=== PATIENT | female | born 1990 | race Caucasian/White ===

== ENCOUNTER 2019-04-02 05:45 | Outpatient (CLI) | payer MEDICAID, SELFPAY ==
[2019-04-02 06:07] VITALS: BMI 47.1
[2019-04-02 06:55] LABS: Red Blood Cells-Urine 0 SEEN /hpf (0-5)
[2019-04-02 06:59] LABS: Color, Urine Yellow (Yellow); Glucose, Dipstick Normal (Normal); Ketone-Dipstick Negative (Negative); Leukocyte Esterase-Dipstick 100 /ul (Negative); Nitrite-Dipstick Negative (Negative); Occult Blood-Urine Negative /ul (Negative); Protein-Dipstick 15 mg/dl (Negative); Urine Bilirubin Dipstick Negative (Negative); Urine Clarity Sl. Cloudy (Clear); Urine Urobilinogen Normal (Normal); Urine pH 6.5 (5.0 - 8.0)
[2019-04-02 07:09] LABS: Bacteria 1+ /hpf (None Seen); Mucous, Urine RARE /hpf (<or=2+); Squamous Epithelial Cells - UA 0-5 SEEN /hpf (5-10); White Blood Cells 0-5 SEEN /hpf (0-5)
--- NOTE | 2019-04-02 10:24 | NURSING ---
CNM en route to hospital to evaluate patient at bedside. Patient aware of this and was told of plan of care, but opted to leave hospital AMA. See QS for progress note. Encouraged to see her provider today at [facility] and was given pre-eclampsia educational handout.
--- NOTE | 2019-04-06 18:27 | OB.TRI.NOTE ---
History of Present Illness Reason For Visit: R/O LABOR Date of Service: 04/02/19 Final KALEB: 04/23/19 Gestational age: 37 Weeks and 4 Days Allergies metoclopramide [From Reglan] Allergy (Verified 04/02/19 06:10) Shortness of breath Laboratory Studies: Laboratory Tests 04/02/19 Range/Units 06:45 Urine Color Yellow (Yellow) Urine Clarity Sl. Cloudy (Clear) Urine pH 6.5 (5.0 - 8.0) Ur Specific [place] 1.020 (1.002-1.030) Urine Protein 15 H (Negative) mg/dl Urine Glucose (UA) Normal (Normal) mg/dl Urine Ketones Negative (Negative) mg/dl Urine Occult Blood Negative (Negative) /ul Urine Nitrite Negative (Negative) Urine Bilirubin Negative (Negative) mg/dL Urine Urobilinogen Normal (Normal) mg/dl Ur Leukocyte Esterase 100 H (Negative) /ul Urine RBC 0 SEEN (0-5) /hpf Urine WBC 0-5 SEEN (0-5) /hpf Ur Squamous Epith Cells 0-5 SEEN (5-10) /hpf Urine Bacteria 1+ (None Seen) /hpf Urine Mucus RARE (<or=2+) /hpf NST - FHR Rate Baby A Baseline: 125 Variability:: Moderate Accelerations:: 15 x 15 Decelerations:: None NST Reactive:: Yes Uterine Activity:: irregular Impression/Plan REactive NST for false labor
== END 2019-04-02 08:08 | disposition home or self-care (01) ==
LOC: WPOUT 05:54 → WP 05:54
PROVIDERS: Visit Provider Obstetrics & Gynecology
DX: O47.1 False labor at or after 37 completed weeks of gestation (principal); Z3A.37 37 weeks gestation of pregnancy
CPT/HCPCS: 59025; 59050; 81001; 99218; G0378

== ENCOUNTER 2025-07-10 18:12 | Emergency (ER) | payer MEDICAID, SELFPAY ==
[2025-07-10 18:13] VITALS: BP 137/87; PULSE 74; RESP 16; TEMP 36.4; O2SAT 100
--- NOTE | 2025-07-10 18:45 | EX.ED.VIS.HA ---
HPI History of Present Illness Chief Complaint: Headache Informant: patient Narrative Narrative: 34-year-old female presenting to the emergency room with headache. Patient states she has a history of migraines and takes sumatriptan. She sees neurology from [facility] in [place]. The patient tells me that this morning she began to have have a classic migraine for her in the right periorbital region. She states however she started to have pain more on the top of her head and also in occipital region. She states that she feels like Jell-O. She got no relief from her sumatriptan hand. She is on Trulicity missed last week's dose but took it this week and states that since taking it this week she has not felt her normal self. She wonders if her blood sugar is low. She denies any fever cough runny nose sore throat. Other than generalized weakness she does not note any focal deficits. She denies any trauma. [facility] Medical History (Updated 07/10/25 @ 19:[address] David Ackerman DO) Headache Home Medications ?Medication ?Instructions ?Recorded ?Last Taken ?Type dulaglutide 0.75 mg/0.5 mL 0.75 mg subcut QWEEK 07/10/25 Unknown History subcutaneous pen injector (Trulicity) potassium chloride 20 mEq 20 meq PO DAILY #3 tabs 07/10/25 Unknown Rx tablet,extended release (K-Tab) sumatriptan succinate 100 mg tablet 100 mg PO Q2H PRN migraine headache 07/10/25 Unknown History Allergy/AdvReac Type Severity Reaction Status Date / Time metoclopramide (From Reglan) Allergy Shortness Verified 07/10/25 18:16 of breath prochlorperazine (From AdvReac Other Verified 07/10/25 18:16 Compazine) Social History Smoking Status: Current every day smoker tobacco type: cigarettes ROS ROS ED ROS Narrative Generalized weakness Constitutional Constitutional ED: Denies chills, fever(s) or weight loss Eyes Eyes: Denies change in vision or diplopia ENT ENT ED: Denies ear pain, rhinorrhea or sore throat Cardiovascular Cardiovascular: Denies chest pain, orthopnea, palpitations or racing heartbeat Respiratory/Chest Respiratory/Chest: Denies cough, dyspnea or orthopnea Gastrointestinal Gastrointestinal: Reports nausea and vomiting; Denies abdominal pain or diarrhea Genitourinary Genitourinary ED: Denies dysuria, hematuria or urinary frequency Musculoskeletal Musculoskeletal: Denies arthralgias or myalgias Integumentary Denies abscess or rash Neurologic Neurologic: Reports headache(s); Denies weakness Psychiatric Psychiatric: Denies anxiety, depression, suicidal ideation or suicidal thoughts Endocrine Endocrinology: Denies polydipsia, polyphagia or polyuria Allergic/Immunologic Allergic/Immunologic ED: Denies mouth swelling, tongue swelling or urticaria EXAM Physical Exam Narrative Exam Narrative: In a darkened room. Patient does not open her eyes and speaks easily. Const Vital Signs: 07/10/25 18:13 07/10/25 20:00 07/10/25 20:22 Temperature 97.6 F L 97.3 F L Temperature Source Oral Pulse Rate 74 70 70 Respiratory Rate 16 16 16 Blood Pressure 137/87 H 138/80 H Blood Pressure Mean 103 99 Pulse Ox 100 98 98 Oxygen Delivery Method Room Air Positive well nourished, well developed and obese General Appearance ED: well developed and NAD Nutritional Appearance: obese HEENT Reports normocephalic, head/scalp atraumatic and moist mucous membranes Eyes PERRL and EOMs intact bilaterally Neck no lymphadenopathy, supple and no JVD Resp normal respiratory effort and clear to auscultation bilaterally Cardio regular rate, regular rhythm and no murmurs GI normal to inspection, nondistended, normoactive bowel sounds and non-tender Palpation: soft Back/Spine no CVA tenderness and normal ROM Extremity normal to inspection General Extremety ED: Negative for edema General Extremity: Negative for edema Neuro oriented x3, CN's II-XII intact bilaterally and no sensory deficits noted [place] Coma Scale: document GCS findings Spontaneous Obeys Commands Oriented 15 Sensorium / Orientation: awake, alert, oriented to person, oriented to place and oriented to time Speech: speech normal Motor Exam: strength 5/5 throughout Psych mental status grossly normal Mood & Affect: Negative for depressed or tearful Skin no rashes or lesions noted and no wounds MDM MDM MDM Narrative Medical decision making narrative: Differential diagnosis includes but not limited to dehydration electrolyte abnormalities hypoglycemia primary headache disorder intracranial hemorrhage malignancy medication reaction Patient is noted to have had problems with hypokalemia in the past. Today she is 3.6. Glucose 128 hemoglobin 11.6 platelet count [address] of the brain was obtained which demonstrates no acute intracranial process. Bilateral retention cyst are noted in the sinuses. Patient received a dose of Decadron as well as Toradol and Phenergan as well as IV fluids. She notes her headache is better she states that she still feels an odd sensation in her occiput. Open I have the patient discharged home. We talked about whether or not she needed potassium supplementation given her long history of having low potassium. I asked that she follow-up with her neurologist given the change in headache pattern. She wonders if her symptoms may be related to her Trulicity. I would defer that to primary care. History & Record Review Discussion w/independent historian: Patient Additional record(s) reviewed:: Prior labs Lab Data Attestation: I reviewed the patient's lab results. Labs: Laboratory Results - last 24 hr 07/10/25 07/10/25 18:45 18:50 WBC 7.7 RBC 4.57 Hgb 11.6 L Hct 35.7 L MCV 78.1 L MCH 25.4 L MCHC 32.5 RDW Std Deviation 38.9 RDW Coeff of Bucky 13.8 Plt Count 233 MPV 9.7 Immature Gran % (Auto) 0.100 Neut % (Auto) 69.3 Lymph % (Auto) 23.3 [place] % (Auto) 4.6 Eos % (Auto) 2.0 Baso % (Auto) 0.7 Absolute Neuts (auto) 5.3 Absolute Lymphs (auto) 1.79 Nucleated RBC % 0 Sodium 141 Potassium 3.6 Chloride 105 Carbon Dioxide 24.9 Anion Gap 11 BUN 9 Creatinine 0.76 Est GFR (MDRD) Non-Af 106 BUN/Creatinine Ratio 11.9 Glucose 128 H Calcium 8.4 POC Glucose 97 Radiography Diagnostic Testing: Clinical Impression(s) from Imaging Studies Brain CT 07/10/25 18:55 IMPRESSION: No acute intracranial process. Large retention cyst within bilateral maxillary sinuses, left more than right Reading Location: [facility] Discharge Plan Triage Chief Complaint: Headache ED Provider: David Ackerman Dx/Rx/DC Orders Clinical Impression: Headache, Hypokalemia, Weakness Instructions: ED Headache Unspecified, ED Hypokalemia Prescriptions: New potassium chloride [K-Tab] 20 mEq tablet extended release 20 meq PO DAILY Qty: 3 0RF No Action sumatriptan succinate 100 mg tablet 100 mg PO Q2H PRN (Reason: migraine headache) Trulicity 0.75 mg/0.5 mL pen injector 0.75 mg subcut QWEEK Primary Care Provider: Kiersten South NP Referrals: Kiersten South NP, [employer] [Primary Care Provider, Medical] - 3-5 Days Print Language: Bermudian Disposition Disposition: Home, Self Care
[2025-07-10] MEDS: 0.9% Normal Saline (1000mL) 1,000 ML 999 ML IV (18:49)
[2025-07-10] MEDS: Ketorolac 30 MG/ML Syringe IV (18:49)
[2025-07-10] MEDS: proMETHazine 25 MG/ML Syringe 12.5 MG IM (18:50)
[2025-07-10 18:55] LABS: Hematocrit 35.7 % (37-47); Hemoglobin 11.6 g/dL (12.0-15.0); Immature Granulocytes Count 0.010 X10^3/uL (0.0-0.0); Mean Corp Hgb Conc 32.5 g/dL (32-36); Mean Corpuscular Volume 78.1 fL (81-99); Mean Platelet Vol. 9.7 fl (6.2-12.0); NRBC Flagged by Analyzer 0 % (0-5); Platelet Count 233 K/mm3 (150-450); RBC Distribution Width CV 13.8 % (11.6-14.6); RBC Distribution Width SD 38.9 fl (35.1-43.9); Red Blood Count 4.57 M/mm3 (4.2-5.4); White Blood Count 7.7 K/mm3 (4.4-11.0)
--- NOTE | 2025-07-10 18:55 | CT_ITS ---
PROCEDURE: BRAIN/HEAD WITHOUT CONTRAST 07/10/2025 REASON FOR EXAM: PAIN TECHNIQUE: Procedure Code: CTBR Modality: CT Procedure: BRAIN/HEAD WITHOUT CONTRAST Coronal and Sagittal reconstruction series were provided. One or more dose reduction techniques were used (e.g., Automated exposure control, adjustment of the mA and/or kV according to patient size, use of iterative reconstruction technique. RADIATION DOSE SUMMARY: DLP: 779 mGycm COMPARISON: None FINDINGS: There is no acute infarct, intracranial hemorrhage, or mass effect. There is no hydrocephalus or significant midline shift. No acute, depressed calvarial fractures. No large scalp hematomas. Large retention cyst within bilateral maxillary sinuses, left more than right CT/Brain/Head without Contrast IMPRESSION: No acute intracranial process. Large retention cyst within bilateral maxillary sinuses, left more than right Reading Location: [id number]
[2025-07-10 19:12] LABS: Anion Gap 11 (5-15); BUN 9 mg/dL (4-19); BUN/Creat Ratio 11.9 RATIO (10-20); Calcium,Total 8.4 mg/dL (7.6-11.0); Carbon Dioxide 24.9 mmol/L (21.0-32.0); Chloride 105 mmol/L (98-108); Glucose 128 mg/dL (70-99); Potassium 3.6 mmol/L (3.3-5.1)
--- OUTSIDE RECORDS SUMMARY | 2025-07-10 19:27 | XMS RPT_ITS | CCD ---
Author Organization [facility] Care Team Providers Care Chip Frier Name Role Phone Alex Ortega Primary Care Provider KALEY RITTER, DR LUJAN Primary Care Physician [phone] MD NEGRO GARBER Emergency Provider ALEX ORTEGA Primary Care Provider NEGRO GARBER Attending Unavailable ALEX ORTEGA Primary Care Unavailable KALEY RITTER, DR LUJAN Primary Care Unavailable ENRICO HAJI DO Attending Unavailable MATTHEW LAROSE MD Attending Unavailable KALEY RITTER, DR LUJAN Primary Care Unavailable KALEY RITTER, DR LUJAN Primary Care Unavailable ENRICO HAJI DO Attending Unavailable Andrea Duff DO Primary Care Provider [phone] Jacky Solares MD Primary Care Provider Brannon [employer] [facility] [place] Primary Care Provider DR ANDREA DUFF DO Primary Care Physician [phone] Jacky Solares MD Primary Care Provider Amber García DO Unavailable DR ANDREA DUFF DO Primary Care Unavailab KEELY Ferrer MD Attending Unavail able DR ANDREA DUFF DO Primary Care Unavailab KEELY Ferrer MD Attending Unavail able JACKY SOLARES Primary Care Unavailable [facility] Attending Unavailable JACKY SOLARES Primary Care Unavailable [place] [facility] Attending Unavailable JACKY SOLARES Primary Care Unavailable [facility] Attending Unavailable JACKY SOLARES Primary Care Unavailable JACKY SOLARES Primary Care Unavailable AMBER GARCÍA Attending Unavailable [facility] Referring Unavailable DORON GUSTAFSON Attending Unavailable [facility] Primary Care Unavailable CRICKET FOREMAN Attending Unavailable PETRI[place], [place] Primary Care Unavailable STORMY KEN Attending Unava ilable [facility] Primary Care Unavailable CRICKET FOREMAN Referring Unavailable PETRILLA, ANDREA Primary Care Unavailable [facility] Attending Unavailable DORON GUSTAFSON Attending Unavailable [facility] Primary Care Unavailable PETRILLA, ANDREA Attending Unavailable PETRILLA, ANDREA Primary Care Unavailable [facility] Attending Unavailable SANGEETALLA, ANDREA Primary Care Unavailable [facility] Referring Unavailable [facility] Primary Care Unavailable [facility] Attending Unavailable [facility] Primary Care Unavailable [facility] Attending Unavailable [facility] Attending Unavailable SANGEETALLA, [place] Primary Care Unavailable [facility] Primary Care Unavailable [facility] Referring Unavailable [place] [facility] Attending Unavailable CRICKET FOREMAN Referring Unavailable PETRILLA, [place] Primary Care Unavailable [facility] Attending Unavailable PETRILLA, [place] Primary Care Unavailable [facility] Referring Unavailable [facility] Primary Care Unavailable Allergies Allergy Classification Reported Allergen(s) Allergy Type Date of Onset Reaction(s) Facility (20 sources) Metoclopramide; Translations: [metoclopramide] Drug Allergy 9 [place], [place] (20 sources) Prochlorperazine Drug Allergy 5 [facility] Medications Current Medications Medication Drug Class(es) Dates Sig (Normalized) Sig (Original) acetaminophen 325 mg / butalbital 50 mg / caffeine 40 mg oral tablet (11 sources) Barbiturate, Central Nervous System Stimulant, Methylxanthine Start: 11-22-2019 take 1 tablet by mouth every four hours as needed for headache butalbital-aceta minophen-caffein e (FIORICET, ESGIC) 50-325-40 MG per tablet Take 1 tablet by mouth every 4 hours as needed for Headaches 15 tablet 0 11/22/2019 Active Start: 01-10-2019 End: 04-11-2019 take 1 tablet by mouth every four hours as needed for headache [id number] (SIVAN CET, ESGIC) 50-325-40 MG per tablet Take 1 tablet by mouth every 4 hours as needed for Headaches or Migraine 30 tablet 0 01/10/2019 04/11/2019 Discontinued (Stop Taking at Discharge) acetaminophen 325 mg / HYDROcodone bitartrate 5 mg oral tablet (3 sources) Opioid Agonist Start: 04-26-2022 End: 04-29-2022 take 1 tablet by mouth every six hours as needed for pain acetaminophen-hydrocodone 325 mg-5 mg oral tablet Dose = 1 tab(s), Oral, q6h, PRN for pain, prn with food, X 3 day(s), # 12 tab(s), 0 Refill(s), Coxsackie virus exanthem Hand foot and mouth disease, 140.9 Start Date: 04/26/22 Stop Date: 04/29/22 Status: Ordered Start: 12-01-2019 End: 12-03-2019 take 1 tablet by mouth every six hours as needed for pain HYDROcodone-acetaminophen (NORCO) 5-325 MG per tablet Indications: Lumbar contusion, initial encounter Take 1 tablet by mouth every 6 hours as needed for Pain for up to 2 days. 8 tablet 0 12/01/2019 12/03/2019 Active Start: 04-10-2019 HYDROcodone-ac etaminophen (NORCO) 5-325 MG per tablet 1 tablet [id number] 200 actuat albuterol 0.09 mg/actuat metered dose inhaler (20 sources) beta2-Adrenergic Agonist Start: 12-04-2024 take 2 puff(s) by inhalation every six hours as needed for wheezing albuterol 108 (90 Base) MCG/ACT inhaler Indications: URI with cough and congestion , Exercise-induced asthma Inhale 2 puffs every 6 hours as needed for wheezing. 18 g 12/04/2024 Active Start: 04-20-2019 albuterol (PRO VENTIL) nebulizer solution 2.5 mg Start: 04-20-2019 take 2 puff(s) by in halation four times daily as needed for wheezing albuterol sulfate HFA 108 (90 Base) MCG/ACT inhaler Inhale 2 puffs into the lungs 4 times daily as needed for Wheezing 1 Inhaler 5 04/20/2019 Active End: 12-04-2024 albuterol 108 (90 Base) MCG/ ACT inhaler Inhale. 12/04/2024 Discontinued (Reorder) albuterol sulfate HFA 108 (90 Base) MCG/ACT inhaler (9 sources) Start: 12-07-2019 take 2 puff(s) by inhalation four times daily as needed for wheezing albuterol sulfate HFA 108 (90 Base) MCG/ACT inhaler Inhale 2 puffs into the lungs 4 times daily as needed for Wheezing 1 Inhaler 5 12/07/2019 Active Start: 04-20-2019 take 2 puff(s) by in halation four times daily as needed for wheezing albuterol sulfate HFA 108 (90 Base) MCG/ACT inhaler Inhale 2 puffs into the lungs 4 times daily as needed for Wheezing 1 Inhaler 5 04/20/2019 Active amitriptyline hydrochloride 50 mg oral tablet (20 sources) Tricyclic Antidepressant Start: 10-03-2024 End: 01-10-2026 take 1 tablet by mouth once daily amitriptyline (Elavil) 50 MG tablet Indications: Intractable migraine with aura without status migrainosus Take 1 tablet (50 mg) by mouth daily with supper. Do not start before October 03, 2024. 90 tablet 3 10/03/2024 01/10/2026 Active Start: 09-19-2024 End: 12-04-2024 take 2 tablets by mouth once daily in the evening amitriptyline (Elavil) 25 MG tablet Indications: Intractable migraine with aura without status migrainosus Take half a tab po QPM suppertime for 7 days, then take a full tab po QPM suppertime for 7 days, then move up to the 50 mg tabs 14 tablet 09/19/2024 12/04/2024 Discontinued amoxicillin 875 mg oral tablet (1 source) Penicillin-class Antibacterial Start: 09-07-2022 End: 09-08-2022 amoxicillin 875 mg oral tablet Dose : 875 mg = 1 tab(s), PO, BID, # 20 tab(s), 0 Refill(s), 09/08/22 10:14:00 EST, Eustachian tube disorder Start Date: 09/07/22 Stop Date: 09/08/22 Status: Ordered azithromycin 250 mg oral tablet (1 source) Macrolide Antimicrobial Start: 04-20-2019 End: 04-24-2019 azithromycin (ZITHROMAX Z-CHAR) 250 MG tablet Take 2 tablets (500 mg) on Day 1, and then take 1 tablet (250 mg) on days 2 through 5. 1 packet 0 04/20/2019 04/24/2019 Active cephalexin 500 mg oral capsule (1 source) Cephalosporin Antibacterial Start: 04-20-2019 End: 04-30-2019 take 1 capsule by mouth three times daily cephALEXin (KEFLEX) 500 MG capsule Take 1 capsule by mouth 3 times daily for 10 days 30 capsule 0 04/20/2019 04/30/2019 Active citalopram 20 mg oral tablet (4 sources) Serotonin Reuptake Inhibitor Start: 05-26-2019 take 1 tablet by mouth once daily citalopram (CELEXA) 20 MG tablet Take 1 tablet by mouth daily 30 tablet 3 05/26/2019 Active Continuous Glucose Sensor (FreeStyle Leilani 3 Plus Sensor) [facility] (20 sources) Start: 01-22-2025 Continuous Glucose Sensor (FreeStyle Leilani 3 Plus Sensor) [facility] Indications: Type 2 diabetes mellitus with morbid obesity (HCC) 1 each every 14 (fourteen) days. 2 each 5 01/22/2025 Active [facility] Leilani [facility] Start: 01-10-2025 Continuous Glucose Sensor (FreeStyle Leilani 3 Sensor) [facility] Indications: Type 2 diabetes mellitus with morbid obesity (HCC) 1 each every 14 (fourteen) days. 2 each 5 01/10/2025 Active cyclobenzaprine hydrochloride 10 mg oral tablet (1 source) Muscle Relaxant Start: 12-01-2019 End: 12-04-2019 take 1 tablet by mouth three times daily as needed for muscle spasms cyclobenzaprine (FLEXERIL) 10 MG tablet Take 1 tablet by mouth 3 times daily as needed for Muscle spasms 9 tablet 0 12/01/2019 12/04/2019 Active docusate sodium 100 mg oral capsule (4 sources) Start: 04-09-2019 take 1 capsule by mouth twice daily as needed for constipation docusate sodium (COLACE, DULCOLAX) 100 MG CAPS Take 100 mg by mouth 2 times daily as needed for Constipation 90 capsule 1 04/11/2019 Active doxycycline hyclate 100 mg oral capsule (1 source) Tetracycline-class Drug Start: 03-05-2023 End: 03-12-2023 doxycycline hyclate 100 mg oral capsule Dose : 100 mg = 1 cap(s), Oral, BID, X 7 day(s), # 14 cap(s), 0 Refill(s), 03/12/23 9:31:00 PM EDT, 140.9 Start Date: 03/05/23 Stop Date: 03/12/23 Status: Ordered 0.5 ml dulaglutide 1.5 mg/ml auto-injector (17 sources) GLP-1 Receptor Agonist Start: 04-18-2025 End: 06-07-2025 dulaglutide (Trulicity) 0.75 MG/0.5ML pen-injector Indications: Type 2 diabetes mellitus with morbid obesity (HCC) , Morbid obesity with BMI of 45.0-49.9, adult (CMS/HCC) Inject 1 Pen (0.75 mg) under the skin 1 (one) time per week. 2 mL 06/07/2025 Active 0.6 ml enoxaparin sodium 100 mg/ml prefilled syringe (1 source) Low Molecular Weight Heparin Start: 04-10-2019 inject 60 mg by subcutaneous injection once daily 60 mg, Subcutaneous, DAILY, First dose on Wed04/10/19 at 0315, fluticasone propionate 0.05 mg/actuat metered dose nasal spray (5 sources) Corticosteroid Start: 09-07-2022 Flonase 50 mcg/inh nasal spray Dose = 1 spray(s), Nasal, BID, in each nostril, # 1 EA, 0 Refill(s), Eustachian tube disorder Start Date: 09/07/22 Status: Ordered Medication Dispense Status: Completed Quantity: 1.0 Unit: EA Total Allowed Fills: 1 Fills Dispensed: 0 Indications: Unspecified Eustachian tube disorder, unspecified ear; 60 actuat fluticasone propionate 0.1 mg/actuat / salmeterol 0.05 mg/actuat dry powder inhaler (7 sources) Corticosteroid, beta2-Adrenergic Agonist Start: 12-07-2019 take 1 puff(s) by inhalation every twelve hours fluticasone-salmet lavelle (ADVAIR DISKUS) 100-50 MCG/DOSE diskus inhaler Inhale 1 puff into the lungs every 12 hours 1 each 1 12/07/2019 Active hydrogen peroxide 30 mg/ml topical solution (1 source) Start: 07-06-2019 hydrogen peroxide 3 % external solution 1 ml HYDROmorphone hydrochloride 1 mg/ml cartridge (1 source) Opioid Agonist Start: 04-09-2019 take 0.25 mg by mouth every three hours as needed for pain 0.25 mg, Intravenous, EVERY 3 HOURS PRN, Pain Moderate (4-6), Starting 04/09/19 at 1529 If oral and IV narcotics ordered, use oral first and only use IV if oral is ineffective or cannot take oral. &nb sp;Do Not give oral and IV within 1 hour of each other unless specifically ordered. ibuprofen 800 mg oral tablet (15 sources) Nonsteroidal Anti-inflammatory Drug Start: 06-30-2019 take 1 tablet by mouth every eight hours as needed for pain ibuprofen (ADVIL;MOTRIN) 800 MG tablet TAKE 1 TABLET BY MOUTH EVERY 8 HOURS NEEDED FOR PAIN 0 06/30/2019 Active Start: 04-10-2019 End: 07-06-2019 take 1 tablet by mouth every six hours ibuprofen (ADVIL;MOTRIN) 600 MG tablet Take 1 tablet by mouth every 6 hours 120 tablet 3 04/11/2019 Active lanolin 0.5 mg/mg topical ointment (1 source) Start: 04-09-2019 Topical, EVERY 1 HOUR PRN, Dry Skin, nipple discomfort, Starting 04/09/19 at 1529, lidocaine 0.05 mg/mg medicated patch (9 sources) Antiarrhythmic, Amide Local Anesthetic Start: 03-26-2020 Lidoderm 5% topical patch Apply 1 patch(es), Transdermal, qDay, # 30 patch(es), 0 Refill(s), 140.9 Start Date: 03/26/20 Status: Ordered Medication Dispense Status: Completed Quantity: 30.0 Unit: patch(es) Total Allowed Fills: 1 Fills Dispensed: 0 Start: 07-06-2019 End: 07-11-2019 lidocaine viscous hcl (XYLOC OLIVIA) 2 % solution 10 mL Misc Medication (7 sources) Start: 02-29-2020 Misc Medicatio n 0 Refill(s), 140.9 Start Date: 02/29/20 Status: Ordered Medication Dispense Status: Completed Total Allowed Fills: 1 Fills Dispensed: 0 [facility] 140.9 Start Date: 02/29/20 Status: Ordered Repeat number: 1 Start: 02-29-2020 [facility] Refill(s), 140.9 Start Date: 02/29/20 Status: Ordered 1 ml nalbuphine hydrochloride 10 mg/ml injection (1 source) Opioid Agonist/Antagonist Start: 04-09-2019 nalbuphine (NUBAIN) injection 5 mg 1 ml naloxone hydrochloride 0.4 mg/ml injection (1 source) Opioid Antagonist Start: 04-09-2019 naloxone (NARCAN) injection 0.4 mg naproxen 500 mg oral tablet (2 sources) Nonsteroidal Anti-inflammatory Drug Start: 11-22-2019 End: 12-12-2019 take 1 tablet by mouth twice daily at mealtime naproxen (NAPROSYN) 500 MG tablet Take 1 tablet by mouth 2 times daily (with meals) for 20 days 40 tablet 0 11/22/2019 Active 2 ml ondansetron 2 mg/ml injection (6 sources) Serotonin-3 Receptor Antagonist Start: 04-09-2019 End: 04-09-2019 4 mg, Intravenous, EVERY 6 HOURS PRN, Nausea, Starting 04/09/19 at 1529, Start: 04-02-2019 ondansetron (Z OFRAN) injection 4 mg Start: 12-21-2018 End: 04-08-2019 take 1 tablet by mouth once daily as needed for nausea ondansetron (ZOFRAN) 4 MG tablet Take 1 tablet by mouth daily as needed for Nausea or Vomiting 30 tablet 0 12/21/2018 04/08/2019 Discontinued (Therapy completed) oxyCODONE hydrochloride 5 mg oral tablet (3 sources) Opioid Agonist Start: 04-09-2019 End: 04-25-2019 take 1 tablet by mouth every four hours as needed for pain oxyCODONE (ROXICODONE) 5 MG immediate release tablet Indications: delivery delivered Take 1 tablet by mouth every 4 hours as needed for Pain for up to 14 days. 28 tablet 0 04/11/2019 04/25/2019 Active oxytocin (PITOCIN) 30 units in 500 mL infusion (1 source) Start: 04-09-2019 125 mL/hr, Intravenous, at 125 mL/hr, CONTINUOUS, Starting 04/09/19 at 1545 For Post Use Only To follow initial bolus immediately after delivery. Verify patient received oxytocin 250cc bolus at delivery followed by an additional 250ccover 1 hour (250cc/hr). & nbsp; Give after delivery of placenta. PARoxetine hydrochloride 20 mg oral tablet (2 sources) Serotonin Reuptake Inhibitor Start: 12-07-2019 End: 12-21-2019 take 1 tablet by mouth once daily in the morning PARoxetine (PAXIL) 20 MG tablet Take 1 tablet by mouth every morning for 14 days 14 tablet 0 12/07/2019 12/21/2019 Active Start: 11-22-2019 End: 12-06-2019 take 1 tablet by mouth once daily PARoxetine (PAXIL) 10 MG tablet Take 1 tablet by mouth daily for 14 days 14 tablet 0 11/22/2019 12/06/2019 Active predniSONE 50 mg oral tablet (12 sources) Start: 05-07-2025 End: 05-12-2025 predniSONE 50 mg oral tablet Dose : 50 mg = 1 tab(s), Oral, qDay, Take with food, X 5 day(s), # 5 tab(s), 0 Refill(s), 05/12/25 12:00:00 AM EDT Start Date: 05/07/25 Stop Date: 05/12/25 Status: Ordered Medication Dispense Status: Completed Quantity: 5.0 Unit: tab(s) Total Allowed Fills: 1 Fills Dispensed: 0 Start: 04-28-2024 End: 09-14-2024 predniSONE (Deltasone) 20 MG tablet Indications: Allergic contact dermatitis due to other agents Take 3 tablets daily for 5 days, then 2 tablets daily for 5 days, then 1 tablet daily for 5 days. 30 tablet 04/28/2024 09/14/2024 Discontinued (Therapy completed) Start: 03-05-2023 End: 03-09-2023 predniSONE 20 mg oral tablet Dose : 60 mg = 3 tab(s), Oral, qDay, X 4 day(s), # 12 tab(s), 0 Refill(s), 03/09/23 9:32:00 PM EDT Start Date: 03/05/23 Stop Date: 03/09/23 Status: Ordered Start: 04-26-2022 predniSONE 10 mg oral tablet 3, PO, BID, 6 po 1st dose then 3 po q12, # 33 tab(s), 0 Refill(s), Coxsackie virus exanthem Hand foot and mouth disease Start Date: 04/26/22 Status: Ordered Medication Dispense Status: Completed Quantity: 33.0 Unit: tab(s) Total Allowed Fills: 1 Fills Dispensed: 0 Indications: Enteroviral vesicular stomatitis with exanthem; Other specified viral infections characterized by skin and mucous membrane lesions; vitamin 27-1 MG tablet 1 tablet (1 source) Start: 04-10-2019 take 1 tablet by mouth once daily 1 tablet, Oral, DAILY, First dose on 04/10/19 at 0900 Begin when normal bowel activity resumes. simethicone 80 mg chewable tablet (1 source) Start: 04-09-2019 take 80 mg by mouth every six hours as needed 80 mg, Oral, EVERY 6 HOURS PRN, Cramping, Flatulence, Starting 04/09/19 at 1529, sodium chloride flush 0.9 % injection 3 mL (1 source) Start: 04-20-2019 sodium chlorid e flush 0.9 % injection 3 mL sulfaSALAzine (7 sources) Aminosalicylate Start: 02-29-2020 take 1 dose by mouth twice daily sulfaSALAzine Dose : 1,000 mg =, Oral, BID, 0 Refill(s) Start Date: 02/29/20 Status: Ordered Medication Dispense Status: Completed Total Allowed Fills: 1 Fills Dispensed: 0 Start: 02-29-2020 take 1 dose by mouth twice daily sulfaSALAzine Dose : 1,000 mg =, Oral, BID, 0 Refill(s) Start Date: 02/29/20 Status: Ordered Repeat number: 1 Start: 02-29-2020 take 1 dose by mouth twice daily sulfaSALAzine Dose : 1,000 mg =, Oral, BID, 0 Refill(s) Start Date: 02/29/20 Status: Ordered SUMAtriptan 100 mg oral tablet (20 sources) Serotonin-1b and Serotonin-1d Receptor Agonist Start: 01-10-2025 SUMAtriptan (Imitrex ) 100 MG tablet Indications: Intractable migraine with aura without status migrainosus Take 1 tablet (100 mg) by mouth Once as needed for migraine for up to 1 dose. May repeat dose once in 2 hours if no relief. Do not exceed 2 doses in 24 hours. 9 tablet 5 01/10/2025 Active Start: 09-19-2024 End: 01-10-2025 SUMAtriptan (Imitrex) 50 MG tablet Indications: Intractable migraine with aura without status migrainosus Take 1 tablet (50 mg) by mouth Once as needed for migraine for up to 1 dose. May repeat dose once in 2 hours if no relief. Do not exceed 2 doses in 24 hours. 9 tablet 5 09/19/2024 01/10/2025 Discontinued (Reorder) Start: 02-29-2020 Imitrex Once, 0 Refill(s) Start Date: 02/29/20 Status: Ordered Medication Dispense Status: Completed Total Allowed Fills: 1 Fills Dispensed: 0 Start: 02-29-2020 Imitrex Once, 0 Refill(s) Start Date: 02/29/20 Status: Ordered Repeat number: 1 Start: 02-29-2020 Imitrex Once, 0 Refill(s) Start Date: 02/29/20 Status: Ordered Completed/Discontinued Medications Medication Drug Class(es) Dates Sig (Normalized) Sig (Original) acetaminophen 500 mg oral tablet (3 sources) Start: 07-06-2019 End: 07-06-2019 acetaminophen (TYLENOL) tablet 1,000 mg Start: 04-09-2019 take 325 mg by mouth every four hours 325 mg, Oral, EVERY 4 HOURS, First dose on 04/09/19 at 1545 Maximum dose of acetaminophen is 4000 mg from all sources in 24 hours. Start: 04-02-2019 acetaminophen (TYLENOL) tablet 650 mg acetaminophen 325 mg / oxyCODONE hydrochloride 5 mg oral tablet (1 source) Opioid Agonist Start: 04-09-2019 End: 04-09-2019 oxyCODONE-acetaminophen (PERCOCET) 5-325 MG per tablet 2 tablet amoxicillin 875 mg / clavulanate 125 mg oral tablet (14 sources) Penicillin-class Antibacterial Start: 12-04-2024 End: 01-10-2025 take 1 tablet by mouth twice daily amoxicillin-clavulanate (Augmentin) 875-125 MG tablet Indications: URI with cough and congestion Take 1 tablet by mouth 2 times daily for 10 days. 20 tablet 12/04/2024 01/10/2025 Discontinued (Med list cleanup) Start: 02-29-2020 Augmentin 0 Re fill(s), 140.9 Start Date: 02/29/20 Status: Ordered Medication Dispense Status: Completed Total Allowed Fills: 1 Fills Dispensed: 0 Start: 02-29-2020 Augmentin 0 Re fill(s), 140.9 Start Date: 02/29/20 Status: Ordered Repeat number: 1 Start: 02-29-2020 Augmentin 0 Re fill(s), 140.9 Start Date: 02/29/20 Status: Ordered Start: 04-08-2019 End: 04-09-2019 amoxicillin-clavulanate (AUG MENTIN) 875-125 MG per tablet 1 tablet aspirin 81 mg chewable tablet (1 source) Platelet Aggregation Inhibitor, Nonsteroidal Anti-inflammatory Drug Start: 11-11-2019 End: 11-11-2019 aspirin chewable tablet 324 mg azithromycin (ZITHROMAX) 500 mg in dextrose 5 % 250 mL IVPB (1 source) Start: 04-20-2019 End: 04-20-2019 azithromycin (ZITHROMAX) 500 mg in dextrose 5 % 250 mL IVPB calcium chloride 0.0014 meq/ml / potassium chloride 0.004 meq/ml / sodium chloride 0.103 meq/ml / sodium lactate 0.028 meq/ml injectable solution (3 sources) Start: 04-09-2019 End: 04-09-2019 1,000 mL, Intravenous, at 1,000 mL/hr, Administer over 1 Hours, ONCE, 04/09/19 at 1200, For 1 dose Labor and Delivery. &nbsp ;Administer bolus one hour prior to surgery. Pre-op (day of surgery) Start: 04-08-2019 End: 04-09-2019 lactated ringers infusion cefTRIAXone (ROCEPHIN) 2 g in dextrose 5 % 50 mL IVPB (1 source) Start: 04-20-2019 End: 04-20-2019 cefTRIAXone (ROCEPHIN) 2 g in dextrose 5 % 50 mL IVPB citric acid 66.8 mg/ml / sodium citrate 100 mg/ml oral solution (1 source) Calculi Dissolution Agent, Anti-coagulant Start: 04-09-2019 End: 04-09-2019 take 30 mL by mouth once 30 mL, Oral, ONCE, 04/09/19 at 1130, For 1 dose Give prior to epidural placement. Labor and Delivery 1 ml diphenhydrAMINE hydrochloride 50 mg/ml cartridge (10 sources) Histamine-1 Receptor Antagonist Start: 09-14-2024 End: 09-14-2024 12.5 mg, IntraVENous, Once, On Meliza 09/14/24 at 1600, For 1 dose Start: 07-06-2019 End: 07-06-2019 diphenhydrAMINE (BENADRYL) 1 2.5 MG/5ML elixir 50 mg Start: 07-06-2019 take 20 mL by mouth four times daily as needed for pain diphenhydrAMINE (BENADRYL) 12.5 MG/5ML elixir Take 20 mLs by mouth 4 times daily as needed for Sleep (dental pain) 480 mL 0 07/06/2019 Active Start: 04-09-2019 diphenhydrAMIN E (BENADRYL) injection 12.5 mg Start: 02-15-2019 End: 04-11-2019 diphenhydrAMINE HCl, TOPICAL , (BENADRYL ITCH STOPPING) 2 % GEL Apply to affected area twice a day 1 Tube 0 02/15/2019 04/11/2019 Discontinued (Stop Taking at Discharge) eletriptan 20 mg oral tablet (1 source) Serotonin-1b and Serotonin-1d Receptor Agonist Start: 11-11-2019 End: 11-11-2019 take 1-2 tablets by mouth once as needed, then take 1 tablet by mouth every two hours as needed eletriptan (RELPAX) 20 MG tablet Take 1-2 tablets by mouth once as needed for Migraine (May repeat once 2 hours after the first dose) may repeat in 2 hours if necessary 8 tablet 0 11/11/2019 11/11/2019 Discontinued ferrous sulfate 325 mg oral tablet (8 sources) Start: 02-01-2025 End: 03-03-2025 take 1 tablet by mouth once daily ferrous sulfate 325 (65 Fe) MG tablet Take 1 tablet (325 mg) by mouth daily. 30 tablet 02/01/2025 02/28/2025 Discontinued (Therapy completed) Start: 04-09-2019 take 1 tablet by clementina th twice daily at mealtime ferrous sulfate 325 (65 Fe) MG tablet Take 1 tablet by mouth 2 times daily (with meals) 30 tablet 3 04/11/2019 Active gadobutrol (GADAVIST) injection 15 mL (1 source) Start: 12-14-2019 End: 12-14-2019 gadobutrol (GADAVIST) injection 15 mL Iopamidol (1 source) Radiographic Contrast Agent Start: 04-20-2019 End: 04-20-2019 iopamidol (ISOVUE-370) 76 % injection 100 mL 1 ml ketorolac tromethamine 30 mg/ml cartridge (5 sources) Nonsteroidal Anti-inflammatory Drug, Cyclooxygenase Inhibitor Start: 02-01-2025 End: 02-01-2025 30 mg, IntraVENous, Once, On Meliza 02/01/25 at 1835, For 1 dose Start: 12-01-2019 End: 12-01-2019 ketorolac (TORADOL) injectio n 30 mg Start: 11-11-2019 End: 11-11-2019 ketorolac (TORADOL) injectio n 30 mg Start: 04-09-2019 End: 04-10-2019 ketorolac (TORADOL) injectio n 30 mg 12 hr loratadine 5 mg / pseudoephedrine sulfate 120 mg extended release oral tablet (2 sources) alpha-Adrenergic Agonist Start: 11-25-2022 End: 04-28-2024 take 5-120 mg by mouth every twelve hours loratadine-pseudoephedrine ER (Claritin-D 12 Hour) 5-120 MG 12 hr tablet Take 1 tablet by mouth 2 times daily for 20 doses. Do not crush, chew, or split. 20 tablet 11/25/2022 04/28/2024 Discontinued 1 ml LORazepam 2 mg/ml injection (1 source) Benzodiazepine Start: 11-11-2019 End: 11-11-2019 LORazepam (ATIVAN) injection 0.5 mg 50 ml magnesium sulfate 40 mg/ml injection (2 sources) Start: 09-14-2024 End: 09-14-2024 2,000 mg, IntraVENous, at 100 mL/hr, Administer over 30 Minutes, Once, On [facility] 09/14/24 at 1600, For 1 dose, Recommended infusion rate not to exceed 1,000 mg (milligrams) per hour. meclizine hydrochloride 25 mg oral tablet (3 sources) Antiemetic Start: 11-20-2022 End: 04-28-2024 take 1 tablet by mouth three times daily meclizine (Antivert) 25 MG tablet Take 25 mg by mouth 3 times daily. 11/21/2022 04/28/2024 Discontinued metFORMIN hydrochloride 500 mg oral tablet (4 sources) Biguanide Start: 12-07-2024 End: 01-10-2025 take 1 tablet by mouth twice daily at mealtime metFORMIN (Glucophage) 500 MG tablet Indications: Type 2 diabetes mellitus with morbid obesity (HCC) Take 1 tablet (500 mg) by mouth 2 times daily (with meals). 60 tablet 12/07/2024 01/10/2025 Discontinued (Non-compliance) methylPREDNISolone 125 mg injection (1 source) Corticosteroid Start: 11-11-2019 End: 11-11-2019 methylPREDNISolone sodium (SOLU-MEDROL) injection 125 mg Mom to be Belts MISC (3 sources) Start: 02-28-2019 End: 04-11-2019 Mom to be Belts MISC by Does not apply route 1 each 0 02/28/2019 04/11/2019 Discontinued (Stop Taking at Discharge) Start: 02-28-2019 Mom to be Belt s MISC by Does not apply route 1 each 0 02/28/2019 Active 1 ml morphine sulfate 4 mg/ml cartridge (4 sources) Opioid Agonist Start: 04-08-2019 End: 04-09-2019 morphine injection 4 mg Start: 04-08-2019 End: 04-08-2019 morphine 4 MG/ML injection Start: 04-08-2019 End: 04-08-2019 morphine injection 2 mg 2 ml orphenadrine citrate 30 mg/ml injection (1 source) Muscle Relaxant Start: 12-01-2019 End: 12-01-2019 orphenadrine (NORFLEX) injection 60 mg phentermine hydrochloride 37.5 mg oral tablet (12 sources) Sympathomimetic Amine Anorectic Start: 01-10-2025 End: 04-13-2025 take 1 tablet by mouth once daily before breakfast phentermine (Adipex-P) 37.5 MG tablet Indications: Morbid obesity with BMI of 45.0-49.9, adult (HCC) Take 1 tablet (37.5 mg) by mouth every morning (before breakfast). 30 tablet 03/14/2025 04/04/2025 Discontinued (Formulary change) Vit w/Og-Jngrotyks-NJ (PNV PO) (3 sources) End: 04-11-2019 Vit w/Ww-Baabhesgg-QS (PNV PO) Take by mouth 0 04/11/2019 Discontinued (Stop Taking at Discharge) Vit w/F w-Lqnbjnkoj-XE (PNV PO) Take by mouth 0 Active Vit-Fe Fumarate-FA ( VITAMIN) 27-1 MG TABS tablet (2 sources) Start: 04-11-2019 End: 04-20-2019 take 1 tablet by mouth once daily Vit-Fe Fumarate-FA ( VITAMIN) 27-1 MG TABS tablet Take 1 tablet by mouth daily 30 tablet 0 04/11/2019 04/20/2019 Discontinued (Therapy completed) Start: 04-11-2019 take 1 tablet by clementina th once daily Vit-Fe Fumarate-FA ( VITAMIN) 27-1 MG TABS tablet Take 1 tablet by mouth daily 30 tablet 0 04/11/2019 Active prochlorperazine 5 mg/ml injectable solution (6 sources) Phenothiazine Start: 09-14-2024 End: 09-14-2024 take 10 mg by mouth once 10 mg, IntraVENous, Once, On [facility] 09/14/24 at 1600, For 1 dose, Give if unable to tolerate po. Start: 11-11-2019 End: 11-11-2019 prochlorperazine (COMPAZINE) injection 10 mg Start: 11-11-2019 take 1 tablet by clementina th every six hours as needed for nausea prochlorperazine (COMPAZINE) 5 MG tablet Take 1 tablet by mouth every 6 hours as needed (nausea) 30 tablet 0 11/11/2019 Active semaglutide (Ozempic) 2 MG/3 ML solution pen-injector (4 sources) Start: 04-04-2025 End: 04-18-2025 semaglutide (Ozempic) 2 MG/3 ML solution pen-injector Indications: Type 2 diabetes mellitus with morbid obesity (HCC) , Morbid obesity with BMI of 45.0-49.9, adult (HCC) Inject 0.25 mg under the skin 1 (one) time per week. 2 mL 04/04/2025 04/18/2025 Discontinued (Cost of medication) Start: 04-04-2025 semaglutide (O zempic) 2 MG/3ML solution pen-injector Indications: Type 2 diabetes mellitus with morbid obesity (HCC) , Morbid obesity with BMI of 45.0-49.9, adult (HCC) Inject 0.25 mg under the skin 1 (one) time per week. 2 mL 04/04/2025 Active sennosides, snf 8.6 mg oral tablet (5 sources) Start: 02-01-2025 End: 03-03-2025 take 1 tablet by mouth once daily senna (Senokot) 8.6 MG tablet Take 1 tablet (8.6 mg) by mouth Nightly. 30 tablet 02/01/2025 02/28/2025 Discontinued (Therapy completed) 50 ml sodium chloride 9 mg/ml injection (8 sources) Start: 02-01-2025 End: 02-01-2025 1,000 mL, IntraVENous, at 1,000 mL/hr, Administer over 1 Hours, Once, On [facility] 02/01/25 at 1730, For 1 dose Start: 09-14-2024 End: 09-14-2024 1,000 mL, IntraVENous, at 1, 000 mL/hr, Administer over 1 Hours, Once, On [facility] 09/14/24 at 1600, For 1 dose Start: 11-11-2019 End: 11-11-2019 0.9 % sodium chloride bolus Start: 04-20-2019 End: 04-20-2019 0.9 % sodium chloride bolus Start: 04-09-2019 10 mL, Intrave nous, EVERY 12 HOURS SCHEDULED (2 times per day), First dose on 04/09/19 at 2100, Start: 04-09-2019 take 10 mL intravenous route o nce 10 mL, Intravenous, PRN, Line Care, Starting 04/09/19 at 1529 After every IV line use 1 ml terbutaline sulfate 1 m g/ml injection (1 source) Start: 11-11-2019 End: 11-11-2019 terbutaline (BRETHINE) injection 0.25 mg Problems Active Problems Problem Classification Problem Date Documented Da te Episodic/Chronic Allergic reactions (1 source) Allergic contact dermatitis; Translations: [Allergic contact dermatitis due to other agents] 04-28-2024 Episodic Anxiety disorders (20 sources) Anxiety; Translations: [Anxiety state] Onset: 11-02-2018 11-02-2018 Chronic Asthma (20 sources) Mild persistent asthma; Translations: [Asthma] Onset: 03-05-2023 Chronic Conditions associated with dizziness or vertigo (1 source) Vertigo; Translations: [Dizziness and giddiness] 11-20-2022 Episodic Diabetes mellitus with complications (20 sources) Type 2 diabetes mellitus in obese; Translations: [Type 2 diabetes mellitus with other specified complication] Onset: 12-07-2024 12-07-2024 Chronic Diabetes mellitus without complication (17 sources) Patient encounter status; Translations: [Type 2 diabetes mellitus without complications] 01-10-2025 Chronic Diseases of mouth; excluding dental (1 source) Painful mouth; Translations: [Oral pain] Episodic Headache; including migraine (20 sources) Refractory migraine; Translations: [Other migraine, intractable, with status migrainosus] Onset: 09-14-2024 09-14-2024 Chronic Headache; including migraine (3 sources) Headache; including migraine; Translations: [Headache, unspecified] Onset: 09-14-2024 Menstrual disorders (3 sources) Amenorrhea; Translations: [Amenorrhea, unspecified] Onset: 12-04-2024 12-04-2024 Chronic Osteoarthritis (20 sources) Arthritis; Translations: [Unspecified osteoarthritis, unspecified site] Onset: 10-23-2020 05-21-2022 Chronic Other circulatory disease (2 sources) Elevated blood-pressure reading without diagnosis of hypertension; Translations: [Elevated blood-pressure reading, without diagnosis of hypertension] 09-14-2024 Episodic Other complications of ; puerperium affecting management of mother (14 sources) delivery - delivered; Translations: [ delivery delivered] 04-09-2019 Episodic Other female genital disorders (4 sources) Vaginal bleeding; Translations: [Abnormal uterine and vaginal bleeding, unspecified] 02-01-2025 Chronic Other female genital disorders (1 source) Abnormal uterine bleeding; Translations: [Abnormal uterine and vaginal bleeding, unspecified] 05-25-2025 Chronic Other female genital disorders (2 sources) Abnormal uterine and vaginal bleeding, unspecified; Translations: [Abnormal uterine and vaginal bleeding, unspecified] Onset: 02-28-2025 Chronic Other gastrointestinal disorders (20 sources) Celiac disease; Translations: [Celiac disease] 09-24-2024 Chronic Other liver diseases (20 sources) Steatosis of liver; Translations: [Fatty (change of) liver, not elsewhere classified] Onset: 12-11-2024 12-11-2024 Chronic Other liver diseases (1 source) Elevated liver enzymes level; Translations: [Abnormal levels of other serum enzymes] 01-10-2025 Episodic Other lower respiratory disease (1 source) Dyspnea; Translations: [Shortness of breath] Episodic Other lower respiratory disease (1 source) Cough; Translations: [Cough, unspecified] Onset: 03-05-2023 Episodic Other lower respiratory disease (4 sources) Productive cough 03-05-2023 Episodic Other nutritional; endocrine; and metabolic disorders (20 sources) Body mass index 40+ - severely obese; Translations: [Morbid (severe) obesity due to excess calories] Onset: 01-10-2025 12-04-2024 Chronic Other nutritional; endocrine; and metabolic disorders (8 sources) Morbid obesity; Translations: [Morbid (severe) obesity due to excess calories] 04-26-2025 Chronic Other nutritional; endocrine; and metabolic disorders (4 sources) Morbid (severe) obesity due to excess calories; Translations: [Morbid (severe) obesity due to excess calories (CMS/HCC)] Onset: 01-10-2025 Chronic Other nutritional; endocrine; and metabolic disorders (4 sources) Body mass index (BMI) 45.0-49.9, adult; Translations: [Body mass index (BMI) 45.0-49.9, adult (CMS/HCC)] Onset: 01-10-2025 Chronic Other skin disorders (1 source) Eruption; Translations: [Rash and other nonspecific skin eruption] Onset: 05-07-2025 Episodic Other skin disorders (1 source) Rash and other nonspecific skin eruption; Translations: [Rash and other nonspecific skin eruption] Onset: 05-07-2025 Episodic Otitis media and related conditions (1 source) Eustachian tube disorder; Translations: [Unspecified Eustachian tube disorder, unspecified ear] Onset: 09-07-2022 Episodic Residual codes; unclassified (1 source) Tobacco user; Translations: [Tobacco abuse] Chronic Residual codes; unclassified (3 sources) Obstructive sleep apnea syndrome; Translations: [Obstructive sleep apnea (adult) (pediatric)] 09-19-2024 Chronic Residual codes; unclassified (2 sources) Obstructive sleep apnea (adult) (pediatric); Translations: [Obstructive sleep apnea (adult) (pediatric)] Onset: 09-19-2024 Chronic Residual codes; unclassified (1 source) Influenza vaccination declined; Translations: [Immunization not carried out because of patient refusal] 04-28-2024 Episodic Residual codes; unclassified (20 sources) FH: Rheumatoid arthritis; Translations: [Family history of arthritis] 09-24-2024 Episodic Residual codes; unclassified (2 sources) Family history of malignant neoplasm of ovary; Translations: [Family history of malignant neoplasm of ovary] Onset: 05-25-2025 Episodic Sprains and strains (6 sources) Injury of multiple muscles and tendons at shoulder and upper arm level; Translations: [Strain of unspecified muscle, fascia and tendon at shoulder and upper arm level, unspecified arm, initial encounter] Onset: 01-21-2022 Episodic Substance-related disorders (20 sources) Smoker; Translations: [Nicotine dependence, unspecified, uncomplicated] Onset: 06-15-2018 06-15-2018 Chronic Unclassified (7 sources) Streptococcus agalactiae (organism) 04-23-2015 Unclassified (7 sources) 01-06-2015 Unclassified (2 sources) Weight Check; Translations: [Weight Check] Onset: 03-14-2025 Viral infection (5 sources) Viral infection of skin; Translations: [Other specified viral infections characterized by skin and mucous membrane lesions] Onset: 04-26-2022 Episodic Past or Other Problems Problem Classification Problem Date Documented Da te Episodic/Chronic Abdominal pain (20 sources) Right lower quadrant pain; Translations: [Right lower quadrant pain] Onset: 12-20-2018 Resolved: 12-04-2024 12-20-2018 Episodic Administrative/social admission (4 sources) First encounter by subject; Translations: [Persons encountering health services in other specified circumstances] Onset: 12-04-2024 12-04-2024 Episodic Calculus of urinary tract (20 sources) History of calculus of kidney; Translations: [Personal history of urinary calculi] Onset: 06-15-2018 06-15-2018 Episodic Cancer of cervix (2 sources) Atypical squamous cells cannot exclude high grade squamous intraepithelial lesion on cytologic smear of cervix (ASC-H); Translations: [Atypical squamous cells cannot exclude high grade squamous intraepithelial lesion on cytologic smear of cervix (ASC-H)] Onset: 05-21-2022 Episodic Diabetes mellitus without complication (20 sources) Hyperglycemia; Translations: [Impaired fasting glucose] Onset: 11-07-2024 12-05-2024 Episodic Diseases of white blood cells (20 sources) Leukocytosis; Translations: [Elevated white blood cell count, unspecified] Onset: 05-04-2019 Resolved: 12-04-2024 05-04-2019 Chronic Early or threatened labor (20 sources) Threatened premature labor - not delivered ; Translations: [False labor before 37 completed weeks of gestation] Onset: 02-16-2019 Resolved: 12-04-2024 02-16-2019 Episodic Headache; including migraine (20 sources) Cyclical vomiting syndrome; Translations: [Headache] Onset: 10-22-2018 10-22-2018 Episodic Hypertension complicating ; childbirth and the puerperium (20 sources) Gestational hypertension; Translations: [-induced hypertension] Onset: 12-04-2024 Resolved: 12-04-2024 04-23-2015 Episodic Inflammatory diseases of female pelvic organs (20 sources) Bacterial vaginosis; Translations: [Abscess of vulva] Onset: 02-17-2019 Resolved: 12-04-2024 02-28-2019 Episodic Lymphadenitis (20 sources) Hilar lymphadenopathy ; Translations: [Localized enlarged lymph nodes] Onset: 05-04-2019 05-04-2019 Episodic Nausea and vomiting (8 sources) Vomiting; Translations: [Vomiting, unspecified] Onset: 09-14-2024 11-20-2022 Episodic Other circulatory disease (2 sources) Elevated blood-pressure reading, without diagnosis of hypertension; Translations: [Elevated blood-pressure reading, without diagnosis of hypertension] Onset: 09-14-2024 Episodic Other complications of ; puerperium affecting management of mother (20 sources) Deliveries by ; Translations: [Encounter for delivery without indication] Onset: 04-09-2019 Resolved: 12-04-2024 05-21-2022 Episodic Other complications of (20 sources) High risk ; Translations: [Supervision of other high risk pregnancies, unspecified trimester] Onset: 10-20-2018 Resolved: 12-04-2024 10-20-2018 Episodic Other complications of (20 sources) Supervision of with other poor reproductive or obstetric history, first trimester; Translations: [History of pre-eclampsia] Onset: 10-05-2018 Resolved: 12-04-2024 10-05-2018 Episodic Other complications of (20 sources) Abnormal findings on screening of mother; Translations: [Abnormal chromosomal and genetic finding on screening of mother] Onset: 11-07-2018 Resolved: 12-04-2024 11-07-2018 Episodic Other complications of (20 sources) Back pain complicating ; Translations: [Back pain affecting in third trimester] Onset: 04-08-2019 Resolved: 12-04-2024 04-08-2019 Episodic Other complications of (20 sources) Group B streptococcus carrier complicating ; Translations: [Streptococcus B carrier state complicating ] Onset: 12-04-2024 Resolved: 12-04-2024 12-04-2024 Episodic Other gastrointestinal disorders (20 sources) Mass of uterine adnexa; Translations: [Other specified conditions associated with female genital organs and menstrual cycle] Onset: 10-05-2018 2018 Episodic Other gastrointestinal disorders (20 sources) Splenomegaly; Translations: [Splenomegaly, not elsewhere classified] Onset: 05-04-2019 05-04-2019 Episodic Other liver diseases (2 sources) Abnormal levels of other serum enzymes; Translations: [Abnormal levels of other serum enzymes] Onset: 01-10-2025 Episodic Other lower respiratory disease (20 sources) H/O: pneumonia; Translations: [Personal history of pneumonia (recurrent)] Onset: 06-15-2018 Resolved: 12-04-2024 06-15-2018 Episodic Other nervous system disorders (20 sources) H/O: migraine; Translations: [Personal history of other diseases of the nervous system and sense organs] Onset: 06-15-2018 Resolved: 12-04-2024 06-15-2018 Episodic Other nutritional; endocrine; and metabolic disorders (20 sources) Obesity; Translations: [Obesity complicating , unspecified trimester] Onset: 10-05-2018 Resolved: 12-04-2024 10-05-2018 Chronic Other screening for suspected conditions (not mental disorders or infectious disease) (20 sources) Abnormal cytological finding in specimen from female genital organ; Translations: [Atypical squamous cells cannot exclude high grade squamous intraepithelial lesion on cytologic smear of cervix (ASC-H)] Onset: 10-11-2018 10-26-2018 Episodic Other upper respiratory infections (3 sources) Upper respiratory infection; Translations: [Acute upper respiratory infection, unspecified] Onset: 12-04-2024 12-04-2024 Episodic Pneumonia (except that caused by tuberculosis or sexually transmitted disease) (1 source) Infective pneumonia; Translations: [Pneumonia due to organism] Episodic Residual codes; unclassified (4 sources) Family history of conduction disorder of the heart; Translations: [Family history of cardiac arrhythmia] Onset: 10-05-2018 10-05-2018 Episodic Residual codes; unclassified (20 sources) Family history of malignant neoplasm of ovary; Translations: [Family history of malignant neoplasm of ovary] Onset: 06-15-2018 06-15-2018 Episodic Residual codes; unclassified (20 sources) Family history of diabetes mellitus; Translations: [Family history of diabetes mellitus in first degree relative] Onset: 06-15-2018 06-15-2018 Episodic Residual codes; unclassified (20 sources) Family history of ischemic heart disease and other diseases of the circulatory system; Translations: [Family history of cardiac arrhythmia] Onset: 10-05-2018 10-05-2018 Episodic Spondylosis; intervertebral disc disorders; other back problems (5 sources) Cervico-occipital neuralgia; Translations: [Occipital neuralgia] Onset: 09-19-2024 09-19-2024 Episodic Superficial injury; contusion (1 source) Contusion of lower back; Translations: [Lumbar contusion, initial encounter] Episodic Urinary tract infections (20 sources) Acute cystitis; Translations: [Acute cystitis without hematuria] Onset: 10-22-2018 Resolved: 12-04-2024 10-22-2018 Episodic Results Test Name Value Interpretation Reference Range Facility [facility] 06-07-2025 36 Prescription Request : Last medication check: 05/09/25 Last physical exam: 12/04/24 Next scheduled appointment: 08/22/25 Last date of refill on this medication 05/14/25 2ml 0 refill Normal [facility] 17-HYDROXYPROGESTERONE (BKR QUEST)on 05-25-2025 [facility]ST 17-HYDROXYPROGESTERONE 64 ng/dL Normal [facility] Comment on above: Result Comment: Unable to flag abnormal result(s), please refer to reference range(s) below: Adult Female Reference Ranges for 17-Hydroxyprogesterone: Pre-Menopausal Mid Follicular: 23 - 102 ng/dL Pre-Menopausal Surge: 67 - 349 ng/dL Pre-Menopausal Mid Luteal: 139 - 431 ng/dL Postmenopausal Phase: < or = 45 ng/dL Female Yoseph Stages: II - III Females: 18 - 220 ng/dL IV - V Females: 36 - 200 ng/dL Includes data from J Clin Endocrinol Metab. 1991;73:674-686; J Clin Endocrinol Metab. 1989;69;2533-3214; J Clin Endocrinol Metab. 1994;78:226-270. Pediatr Res 1988;23:525-529. MedLinePlus (accessed 01/22/14). This test was developed and its analytical performance characteristics have been determined by [employer] [place], [place]. It has not been cleared or approved by the U.S. Food and Drug Administration. This assay has been validated pursuant to the CLIA regulations and is used for clinical purposes. Test Performed by [facility], [facility], [address] [place] [address] Jt Dowell M.D., Ph.D., Director of Laboratories , CLIA [id number] Performed By: #### L [id number], [id number] ####[employer] ([facility])[address] [place] [address] [facility] DHEA-SULFATE ([facility])on 05-25 DEHYDROEPIANDROSTERONE SULFATE (DHEA-S) 191 ???g/dL Normal 96-512 [facility] Comment on above: Result Comment: GATITO R COMMENTS: Values vary with stage of sexual development. DHEA-S assay should not be used to test samples form infants up to 60 days old. Performed By: #### L [id number] #### Freelance Web Designer: GEORGI CARY ([id number]) [facility] ([facility]) [address] Office Visiton 05-25-2025 Follow-up visit [id number] Hemant Garcia 1990 F Date Provider Department Center 05/25/2025 [id number] OB Offi Family History Problem Relation Age of Onset Ovarian cancer Mother 30 Alcohol abuse Father Diabetes Father Comments: Retinopatthy, - on Insulin Prostate cancer Father Migraines Sister Migraines Sister No Known Problems Brother No Known Problems Brother Colon cancer Maternal Grandmother Cancer Maternal Grandmother Comments: brain abdomen or colon breast Breast cancer Maternal Grandmother Heart disease Paternal Grandfather Cancer Paternal Grandfather Comments: esophagus Uterine cancer Neg Hx Drug abuse Father Arthritis Father Autoimmune disease Father Family Status - Relation Status Age at Mother Alive Father Alive Sister Alive Sister Alive Brother Alive Brother Alive Maternal Grandmother Maternal Grandfather Alive Paternal Grandmother Paternal Grandfather Neg Hx Level of Service:[id number] [facility] OFFICE/OUTPATIENT NEW LOW MDM 30 MINUTES Reason for Visit and Comments: New Patient [[id number]] - Referral from [facility] for abnormal bleeding Pt had been seen in the [place] ER for heavy bleeding Normal [facility] Progress Noteon 05-25-2025 Progress Note Hemant Gacria 05/28/2025 Date Of : 1990 HPI: Hemant Garcia is a 34 y.o. female No obstetric history on file. The patient was seen today. She is here regarding Abnormal bleeding Irregular menses Missed menses November Then very heavy menses 2 pads per hour Went to ER 01/31 Labs in ER No anemia Elev lft Ho dm Fsh thyroid pro ok Abn hair growth Hair loss top of head Pap ho abnormal Enlarged uterus Line 3.4 mm Pap 2019 ro hgsil no followup per patient fam ho ovarian cancer Smoker Obesity Fertility not desired Partner vasectomy Minimal pain Had tube removed right right side 04/27 serous cyst Pt concern for endometriosis Considering hysterectomy Genetics desired Pap emb next visit . Review Of Systems: See hpi Physical Exam: Blood pressure 128/85, pulse 84, height 5' 9 (1.753 m), weight 297 lb (135 kg). General: Alert, NAD Respirations: Normal respiratory effort Assessment: Diagnosis Plan 1. Abnormal uterine bleeding (AUB) DHEA Sulfate, Immunoassay QUEST Testosterone, Free (Dialysis), Total (MS) and Sex Hormone Binding Globulin 17-Hydroxyprogesterone Testosterone, Free (Dialysis), Total (MS) and Sex Hormone Binding Globulin 17-Hydroxyprogesterone 2. Family history of malignant neoplasm of ovary EMPOWER MULTI-CANCER (2 + 38) PLAN: Follow up in about 2 weeks (around 06/08/2025) for emb. Orders Placed This Encounter Procedures DHEA Sulfate, Immunoassay QUEST Standing Status: Future Number of Occurrences: 1 Expected Date: 05/25/2025 Expiration Date: 05/25/2026 EMPOWER MULTI-CANCER (2 + 38) DO NOT DELETE BELOW THIS LINE Department Information ID: [id number] Department:[facility] - [address] [facility] [address] Dept: [phone] Dept Loc: [phone] Patient and physician allow Guerita to share order details with 3rd republican genetic counselor?: Yes Does this patient have a personal history of cancer? If Yes, send cancer history to Guerita: No Does this patient have a family history of cancer? If Yes, send cancer history to Guerita: Yes By placing this electronic order I confirm the testing ordered herein is medically necessary and this patient has been informed of the details of the genetic test(s) ordered, including the risks, benefits, and alternatives, and has consented to testing.: Yes Method/type of collection:: Clinic to manage sample collection What type of billing?: Bill Insurance Select an order diagnosis: Family history of malignant neoplasm of ovary [V16.41.ICD-9-CM] Testosterone, Free (Dialysis), Total (MS) and Sex Hormone Binding Globulin Standing Status: Future Number of Occurrences: 1 Expected Date: 05/25/2025 Expiration Date: 05/25/2026 17-Hydroxyprogesterone Standing Status: Future Number of Occurrences: 1 Expected Date: 05/25/2025 Expiration Date: 05/25/2026 The primary encounter diagnosis was Abnormal uterine bleeding (AUB). A diagnosis of Family history of malignant neoplasm of ovary was also pertinent to this visit. and New Patient (Referral from [facility] for abnormal bleeding/Pt had been seen in the [place] ER for heavy bleeding) as well as counseling on preventative health maintenance follow-up. Normal [facility] Progress Note Table Keeper was offere d to the patient for exam. Patient declined offer of gravity meter observer Normal [facility] TESTOSTERONE, FREE (DIALYSIS ), TOTAL (MS) AND SHBG (BKR QUEST)on 05-25-2025 QUEST SEX HORMONE BINDING GLOBULIN 33 nmol/L Normal 17-124 [facility] Comment on above: Result Comment: Test Performed by [facility], [facility], [address] [place], [place] Jt Dowell M.D., Ph.D., Director of Laboratories , CLIA [id number] Performed By: #### L [id number], [id number] ####[employer] (InteKrinBEAKER)[id number] [place], [place] [facility] QUEST TESTOSTERONE, FREE 4.9 pg/mL Normal 0.1-6.4 [facility] Comment on above: Result Comment: This test was developed and its analytical performance characteristics have been determined by [place]. It has not been cleared or approved by the U.S. Food and Drug Administration. This assay has been validated pursuant to the CLIA regulations and is used for clinical purposes. Performed By: #### L AB720, [id number] ####[employer] (InteKrinBEAKER)[id number] [place] [facility] QUEST TESTOSTERONE, TOTAL, MS 37 ng/dL Normal 2-45 [facility] Comment on above: Result Comment: For additional information, please refer to http://education.[employer]/faq/ EcfeaLqbwenxwmcjxLVOLGFQTF399 (This link is being provided for informational/ educational purposes only.) This test was developed and its analytical performance characteristics have been determined by [employer] [place], [place]. It has not been cleared or approved by the U.S. Food and Drug Administration. This assay has been validated pursuant to the CLIA regulations and is used for clinical purposes. Performed By: #### L AB720, [id number] ####[facility] (InteKrinBEAKER)[id number] [place], [place] [facility] 36on 05-14-2025 36 Rx sent. Follow up a s scheduled. Normal [facility] 36 Prescription Request : dulaglutide (Trulicity) 0.75 MG/0.5ML pen-injector Last physical exam: 12/04/24 ( dietary services director exam) Next scheduled appointment: 08/22/25 Last date of refill on this medication 04/18/25 ( qty 2 ml refill 0) [facility] 36on 05-10-2025 36 Noted. [facility] 36 Noted. [facility] 36on 05-09-[address] [facility] today, as they no longer wish to proceed with workup towards weightloss surgery. Reason for withdraw from program: Patient would like non surg program [x] Non-Surgical Program Offered [] Patient is not Interested at this time. [x] Patient is Interested in NSURG option, [] Forwarded to NPT for scheduling Checklist for internal management of patient's chart: [x] Specialty comment and CCN updated to show Surgical program withdrawal *date* [x] Routed to clinical team for canceling of outstanding orders including (Testing, Labs, Referrals) [x] Canceled outstanding appointments (DE, BNA) and routed to [facility] to cancel psych appts [x]Route to appropriate EGD dude wrangler (JEWELS/JOSHUA- Freida LEWIS/Amanda Yousif) [x] Sent to YECENIA and Surgical Navigation (MARITA/Xavi/ALIREZA DONIS/Agatha) [facility] 36 Last read by Mayela Garcia at 4:34PM on 05/08/2025. [facility] 36 Pt sched 05/09/25 [facility] 36 Author: Aurea gonsalves Service: General Surgery Author Type: -- Filed: 05/09/2025 9:10 AM Creation Time: 05/09/2025 9:08 AM Status: Signed Clinical Services Professional: Aurea Chakraborty Attempted to schedule EGD, and pt stated that she is withdrawing from the program and will be calling the office today. Arline - please contact patient for reason and offer non surg. Complete the smart phrase program withdrawal, cancel orders [place] [phone] Okay for in-office visit. [facility] Office Visiton 05-09-2025 Follow-up visit [id number] Hemant Garcia 1990 F Date Provider Department Center 05/09/2025 [id number] Family History Problem Relation Age of Onset Ovarian cancer Mother 30 Alcohol abuse Father Diabetes Father Comments: Retinopatthy, - on Insulin Prostate cancer Father Migraines Sister Migraines Sister No Known Problems Brother No Known Problems Brother Colon cancer Maternal Grandmother Cancer Maternal Grandmother Comments: brain abdomen or colon breast Breast cancer Maternal Grandmother Heart disease Paternal Grandfather Cancer Paternal Grandfather Comments: esophagus Uterine cancer Neg Hx Drug abuse Father Arthritis Father Autoimmune disease Father Family Status - Relation Status Age at Mother Alive Father Alive Sister Alive Sister Alive Brother Alive Brother Alive Maternal Grandmother Maternal Grandfather Alive Paternal Grandmother Paternal Grandfather Neg Hx Level of Service:00522 [place] OFFICE/OUTPATIENT ESTABLISHED MOD MDM 30 MIN Reason for Visit and Comments: Weight Check [290] - Med check/ waist Rash [069867] - Hand foot and mouth, her son was dx. Was seen in ED on Wednesday [facility] Progress Noteon 05-09-2025 Progress Note [facility] [address] [facility] [id number] Hemant Garcia is a 34 y.o. female who presents for Weight Check (Med check/ waist ) and Rash (Hand foot and mouth, her son was dx. Was seen in ED on Wednesday ) Assessment/Plan 1. Morbid obesity with BMI of 45.0-49.9, adult (CMS/HCC) (E66.01, Z68.42) - chronic, improving - Weight decreased from 316 lbs to 300 lbs since last visit - BMI decreased from 48.17 to 45.95 - Waist circumference reduced from 54.25 inches to 52 inches - Continue current dose of Trulicity - Patient to send MyChart message with current weight after last injection to assess for plateau - Follow up in 3 months - Encouraged to continue with current exercise routine and healthy eating habits 2. Hand, foot and mouth disease (B08.4) - acute, improving - Symptoms started Wednesday with itchy hands, fever on Wednesday and Wednesday - Clear blisters on hands, sore throat, and chest congestion noted - Advised to let the virus run its course as it is self-limiting - Provided work excuse letter from 05/07 through 05/11, to return to work on 05/14 Other Clinical Considerations: - Medication Management: - Patient has one more Trulicity injection for upcoming Wednesday - Advised to send [employer] message when refill is needed - Weight Loss Progress: - Patient reports noticing her waist again and feeling more motivated - Clothing size decreased from uncomfortable 4X to comfortable 3X Hemant was seen today for weight check and rash. Diagnoses and all orders for this visit: Morbid obesity with BMI of 45.0-49.9, adult ([facility]) (Primary) Hand, foot and mouth disease Follow up in about 3 months (around 08/09/2025) for weight check/diabetes management. Subjective History of Present Illness Hemant Garcia, a 34-year-old female, presents for a follow-up weight management visit. She reports starting Trulicity after insurance denied Ozempic. Initially, she experienced nausea during the first week of Trulicity, which she expected. She notes a decrease in appetite and smaller portion sizes when eating. Hemant states she is making healthy food choices. 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 Hemant mentions her child was diagnosed with hand, foot, and mouth disease. She developed symptoms on Wednesday, initially thinking it might be a chemical burn from work. She experienced fever on Wednesday and Wednesday and still feels flushed. She reports a rash on her hands with clear blisters in her skin. Hemant also notes a sore throat with a dot in the back of her throat and chest congestion. She mentions having had hand, foot, and mouth disease before, with more severe symptoms in the past. I obtained verbal consent from the patient and/or patient's guardian to use ambient listening technology during this encounter before the ambient technology was engaged. Review of Systems Constitutional: Positive for fever. HENT: Negative for trouble swallowing. Respiratory: Negative for shortness of breath. Cardiovascular: Negative for chest pain. Gastrointestinal: Negative for abdominal distention, abdominal pain and nausea. Skin: Positive for rash. Objective BP 123/68 Pulse 94 Ht 5' 7.75 (1.721 m) Wt 300 lb (136 kg) SpO2 98% BMI 45.95 kg/m? Waist Circumference: 52 inches Physical Exam Constitutional: General: She is not in acute distress. Appearance: She is obese. She is not ill-appearing or diaphoretic. Cardiovascular: Rate and Rhythm: Normal rate and regular rhythm. Heart sounds: Normal heart sounds. No murmur heard. No friction rub. Pulmonary: Effort: Pulmonary effort is normal. Breath sounds: Normal breath sounds. Skin: Comments: Vesicles with clear fluid surrounded by a halo of erythema noted on bilateral palms of hands. Neurological: Mental Status: She is alert. 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 Morbid obesity, unspecified obesity type (HCC) Yes Morbid obesity with BMI of 45.0-49.9, adult (HCC) Type 2 diabetes mellitus with morbid obesity (HCC) I have recommended proceeding with the evaluation and work-up for the primary procedure as outlined below: Dr. García PATIENT SUMMARY Hemant Garcia 34 y.o. female with Body mass index is 46.5 kg/m?. Laparoscopic Sleeve Gastrectomy DM[x] HTN[] LEXX[] GERD[] HL[] OA[] Date of Surgery: TBD MP PCP: INITIAL TESTING RESULTS Labwork [x] CMP, TSH, Fasting Lipid Profile, Mg, Zinc, Vit B1 (whole blood), Vit B12, 25-OH Vit D, Fe, Ferritin, Folate Tobacco [x] Serum Nicotine / Cotinine [] Negative [] Positive EGD [x] Dx: [] GERD [x] Dyspepsia [] Other Pathology [x] H. pylori [] Negative [] Positive UGI [x] [] not ordered if patient is a Iliana en Y US Abdomen [x] [] not ordered LEXX eval [x] [] On CPAP / Obtain settings 2 months ago was checked Hematology [] [] Hypercoagulation panel Toxicology [x] [x] Urine drug screen [x] EtOH screen Addtional [x] [x] Hgb A1c INITIAL CONSULTATIONS CLEARANCE / MANAGEMENT Psychology [x] Dietitian [x] Cardiology [x] Pulmonary [x] Others [] []Heme/Onc []Psychiatry []Pain mgmt PSD [] Physician supervised diet: []None []3 mos [x]6 mos Preop diet [] Preop low calorie diet: []None []1 wk [x]2 wks FINAL PRE-OP TESTING RESULTS Labwork [x] [x]Pre-op CBC [x]BMP []Serum Nicotine / Cotinine EKG [x] CXR [x] POST-OP MEDICATIONS Ulcer Ppx [] Omeprazole 20 mg PO []QD []BID Gallstone Ppx [] Ursodiol 300 mg []BID DVT Ppx [x] DVT prophylaxis per final preop visit estimated risk Estimated calculated risk: % Schedule final pre-operative office visit with surgeon, pre-operative education class, and pre-operative exercise class prior to date of surgery ATTESTATION I reviewed with the patient the details of the proposed operation. The risks benefits and options were discussed. Risks included but were not limited to bleeding, infection, damage to other surrounding organs, cardio-pulmonary complications related to anesthesia, conversion from laparoscopic to and open procedure, the need for reoperative or endoscopic therapy, the potential for prolonged mechanical ventilation, and . All questions were fully answered to the patient's satisfaction and they wish to proceed with surgical intervention. Sleeve Stop smoking Liver biopsy I spent the visit was spent as face to face encounter, counseling the patient and discussing the risks,benefits and options of surgery as well as the perioperative care plan. The patient was seen and examined independently and relevant data including a full chart rreview was performed by myself. [facility] 36 TE already sent to mt, Mt is not in the office today I did advise patient on this and messaged mt to see what she would like to go forward with as far as patients appointment scheduled tomorrow. [facility] 36 Name of caller: Darwin hubbard Contact phone number: [phone] Relationship to Patient: Self Provider: Practice: [place] Chief Complaint/Reason for Call: Pt called with concerns of hand foot and mouth , denied triage just wanting to make sure office received photos sent and it wanting to hear back from the office please advise as there are also other TE from triage and the pt messages Best time of day caller can be reached: any Patient advised that office/PCP has 24-48 business hours to return their call: No [facility] 36 Do you want to make her a virtual visit? Please advise [facility] 36 I spoke with patient and she states it is not bed bugs, her son just got diagnosed with hand, foot, mouth the other day and she is sending us pictures of her hands. She was very upset when I spoke with her and states her temperature was 103.0. [facility] Progress Noteon 05-08-2025 Progress Note Attempted to schedul e EGD, and pt stated that she is withdrawing from the program and will be calling the office today. [facility] Progress Note See TE financial avelino e for further documentation [facility] 36on 05-07-2025 36 Lm for pt to return call- give Mt's message below [facility] 36 Noted. I see she is currently on the schedule for 05/09/2025. Would recommend verifying if formal diagnosis of bedbugs was given or not. [facility] 36 S: Patient spoke nelson MONREAL nurse regarding rash on hands, feet, abdomen, and face, sore throat, drainage B: Onset of symptoms/concern 4 days A: States her neighbor currently a has hand/foot/mouth. Had recent fever and currently complained of chills. Nurse spoke briefly with patient. She stated she was in the ED currently. Tearful because she states they think its bug bites. Nurse warehouse operations manager entered room to talk with patient so patient disconnected call with triage nurse. R: TE to office for review and follow up as needed. Patient understands care advice. To call office back if needs further assistance. No further needs at this time. Patient instructed to call back with new or worsening symptoms. Reason for Disposition Patient wants to be seen Protocols used: Rash or Redness - [id number] [facility] Office Visiton 04-30-2025 Follow-up visit [id number] Hemant Garcia 1990 F Date Provider Department Center 04/30/2025 AMBER APONTE [facility] SURG None Family History Problem Relation Age of Onset Ovarian cancer Mother 30 Alcohol abuse Father Diabetes Father Comments: Retinopatthy, - on Insulin Prostate cancer Father Migraines Sister Migraines Sister No Known Problems Brother No Known Problems Brother Colon cancer Maternal Grandmother Cancer Maternal Grandmother Comments: brain abdomen or colon breast Breast cancer Maternal Grandmother Heart disease Paternal Grandfather Cancer Paternal Grandfather Comments: esophagus Uterine cancer Neg Hx Drug abuse Father Arthritis Father Autoimmune disease Father Family Status - Relation Status Age at Mother Alive Father Alive Sister Alive Sister Alive Brother Alive Brother Alive Maternal Grandmother Maternal Grandfather Alive Paternal Grandmother Paternal Grandfather Neg Hx Level of Service:98256 [place] OFFICE/OUTPATIENT NEW MODERATE MDM 45 MINUTES Reason for Visit and Comments: Weight Management [645] - [facility] Progress Noteon 04-30-2025 Progress Note [facility] SURGICAL WEIGHT LOSS MANAGEMENT PROGRAM Rooming Note - INITIAL CONSULTATION Patient: Hemant Garcia Date of : 1990 Service Date: 04/30/2025 Patient is here today to discuss the possibility of weight loss surgery. Physician Supervised D/E: 6 Weight Metrics: Vitals BP: 129/81 Heart Rate: 76 Resp: 16 Temp: 36.6 ?C (97.9 ?F) Baseline Measures Initial Height: 5' 7.75 (172.1 cm) Initial Weight: 303 lb 9.6 oz (138 kg) Initial BMI: 46.6 Initial EBW: 164 lb 13.6 oz (74.8 kg) Initial Waist Cricumference: 53.75 Initial Neck Circumference: 17.75 Measurements IBW in lbs: 138.75 lb Initial BMI: 46.50 Weight: (!) 303 lb 9.6 oz (138 kg) BMI (Calculated): 46.6 % Excess Weight Loss: 0 Percent Weight Change Since Last Visit: 137.71 kg Initial Excess Weight (kg): -62.94 kg Initial Neck Circumference: 17.75 Initial Waist Cricumference: 53.75 History of Difficult Intubation: No Patient is not on home O2 Manual provided Yes Completed by: Naomy Gould [facility] 29on 04-18-2025 29 Addended by: [facility] on: 04/18/2025 11:55 AM Modules accepted: Orders [facility] 36on 04-18-2025 36 Thank you for the update. Ozempic removed from medication list and prescription sent for Trulicity. [facility] 36on 04-17-2025 36 PA was denied, patie nt notified and wants to try Trulicity if we can get it covered through insurance if not then she wants to try Adipex route again. Patient did state her insurance would be changing soon and will no longer be on Medicaid. PA denial will be scanned into patients chart with denial reasons provided. Denial put on providers desk for review. [facility] 36on 04-06-2025 36 PA was submitted 03/10 04/02 PA was denied 04/13/25, provider updated, denial scanned into patients media. [facility] 36on 04-05-2025 36 PA Started 04/05/25 [facility] Office Visiton 04-04-2025 Follow-up visit [id number] Hemant Garcia 1990 F Date Provider Department Center 04/04/2025 [id number] Family History Problem Relation Age of Onset Ovarian cancer Mother 30 Alcohol abuse Father Diabetes Father Comments: Retinopatthy, - on Insulin Prostate cancer Father Migraines Sister Migraines Sister No Known Problems Brother No Known Problems Brother Colon cancer Maternal Grandmother Cancer Maternal Grandmother Comments: brain abdomen or colon breast Breast cancer Maternal Grandmother Heart disease Paternal Grandfather Cancer Paternal Grandfather Comments: esophagus Uterine cancer Neg Hx Family Status - Relation Status Age at Mother Alive Father Alive Sister Alive Sister Alive Brother Alive Brother Alive Maternal Grandmother Maternal Grandfather Alive Paternal Grandmother Paternal Grandfather Neg Hx Level of Service:71559 [place] OFFICE/OUTPATIENT ESTABLISHED MOD MDM 30 MIN Reason for Visit and Comments: Weight Check [290] - Adipex Waist- 54.25 in [facility] Progress Noteon 04-04-2025 Progress Note [facility] [address] [facility] [id number] Hemant Garcia is a 34 y.o. female who presents for Weight Check (Adipex //Waist- 54.25 in ) Assessment/Plan 1. Type 2 diabetes mellitus with morbid obesity (E11.69, E66.01) - chronic, improving - Patient reports average blood sugar of 123 - A1C from February 2023 was 6.1%, goal of less than 7% - Discussed weight loss options including injectable medications and weight loss surgery - Referred patient to weight management team for surgical consultation 2. Morbid obesity with BMI of 45.0-49.9, adult (E66.01, Z68.42) - chronic, worsening - Current weight 316 pounds, 4-pound gain since last visit on March 14 - Discussed discontinuing Adipex due to lack of efficacy - Prescribed Ozempic 0.25 mg subcutaneously once weekly as a new weight loss medication - Encouraged continuation of exercise routine - Referred to weight management team for surgical consultation Hemant was seen today for weight check. Diagnoses and all orders for this visit: Type 2 diabetes mellitus with morbid obesity (HCC) (Primary) - semaglutide (Ozempic) 2 MG/3ML solution pen-injector; Inject 0.25 mg under the skin 1 (one) time per week. Morbid obesity with BMI of 45.0-49.9, adult (HCC) - semaglutide (Ozempic) 2 MG/3ML solution pen-injector; Inject 0.25 mg under the skin 1 (one) time per week. - [facility]-Surgical Wt Mgmt Program; Future Follow up in about 4 weeks (around 05/02/2025) for weight management/waist circumference. Subjective History of Present Illness Hemant Garcia, a 34-year-old female, presents for a weight check follow-up. She reports a weight gain of 4 pounds since her last visit on March 14. The patient mentions her family ordered pizza twice recently, which may have contributed to the weight gain. She states she has been exercising, including walking 3.5 miles yesterday and spending two hours at the gym. At the gym, she performed various exercises including ab work, stair climbing, using a stationary bike, and shoulder exercises. Regarding her diabetes management, the patient states her average blood sugar is 123 currently. Her most recent hemoglobin A1c was 6.1% on 02/28/2025, which is down from 8.2% on 12/06/2024. She expresses interest in weight loss options, including injectable medications and weight loss surgery. The patient mentions having a friend who lost 120 pounds, describing it as life-changing. She also reports feeling great over the last couple of weeks. I obtained verbal consent from the patient and/or patient's guardian to use ambient listening technology during this encounter before the ambient technology was engaged. Review of Systems Respiratory: Negative for chest tightness and shortness of breath. Cardiovascular: Negative for chest pain. Objective BP 128/81 Pulse 97 Ht 5' 8 (1.727 m) Wt (!) 316 lb 12.8 oz (144 kg) SpO2 98% BMI 48.17 kg/m? Waist Circumference: 54.25 inches Physical Exam Constitutional: General: She is not in acute distress. Appearance: She is obese. She is not ill-appearing or diaphoretic. Cardiovascular: Rate and Rhythm: Normal rate and regular rhythm. Heart sounds: Normal heart sounds. No murmur heard. No friction rub. Pulmonary: Effort: Pulmonary effort is normal. Skin: General: Skin is warm and dry. Coloration: Skin is not pale. Findings: No erythema or rash. Neurological: Mental Status: She is alert and oriented to person, place, and time. Psychiatric: Mood and Affect: Mood normal. Behavior: Behavior normal. Thought Content: Thought content normal. Judgment: Judgment normal. Results Weight: 316 pounds Normal [facility] 36on 03-28-2025 36 PA closed. NDC not payable Normal [facility] Progress Noteon 03-14-2025 Progress Note Patient stopped in t lorie for a weight/waist check for current weight loss medication. Patient had a virtual visit today with Mt, and was asked to stop in so we could get her weight and a waist measurement on her as well. Obtained patients weight and waist, spoke with Mt regarding progress, Mt will send in patients medication and follow up as scheduled. Normal [facility] Progress Note 03/14/2025 Hemant Garcia (: 1990) is a 34 y.o. female , Established patient, here for evaluation of the following chief complaint(s): Follow-up (Weight Management) I obtained verbal consent from the patient and/or patient?s guardian to use ambient listening technology during this encounter before the ambient technology was engaged. Patient was identified and seen today via Telehealth by agreement and consent. I used the following Telehealth technology: Audio and video capabilities. Patient location: VV Patient Location: Home. This patient encounter is appropriate and reasonable under the circumstances: patient preference . The patient has been advised of the potential risks and limitations of this mode of treatment (including but not limited to the absence of in-person examination) and has agreed to be treated in a remote fashion in spite of them. Any and all of the patient's/patient's family's questions on this issue have been answered and I have made no promises or guarantees to the patient. The patient has also been advised to contact this office for worsening conditions or problems, and seek emergency medical treatment and/or call 911 if the patient deems either necessary. The patient stated that they are currently in the [facility]. If the patient is a minor, permission has been obtained by the parent or guardian for the patient to receive medical care at this visit. Assessment/Plan 1. Morbid obesity with BMI of 45.0-49.9, adult ([facility]) (E66.01, Z68.42) - chronic, improving - Patient reports noticeable weight loss, dropping from 4X to 3X size - Last recorded weight was 314 pounds on February 28 - Continue Adipex for weight management - Scheduled weight check today at 2:30 PM- weight was 312.6lb - Will consider continuing Adipex for a third month if weight loss continues- refill sent - OARRS report reviewed with no discrepancies. CSA signed January 2025. - Follow-up appointment scheduled for April 04 at 2 PM to reassess weight loss progress and medication efficacy - If weight plateaus, will consider tapering off medication or switching to a different option - Encouraged to continue current exercise routine of walking I performed the above service AI scribed on my behalf, and I have reviewed and confirmed the accuracy and completeness of the medical documentation. Follow up in 3 weeks (on 04/04/2025) for Next scheduled follow-up. Subjective History of Present Illness Hemant Garcia, a 34-year-old female, presents for follow-up for weight management. She has been on Atipex for two months. The patient reports noticeable weight loss, stating she can definitely tell in my pants and believes she has dropped from a 4X to a 3X size. She continues to walk for exercise. Regarding her eating habits, she reports no changes since the last visit at the end of last month. Initially, she experienced headaches with the medication but feels she has managed them now. The patient denies any chest pain or shortness of breath. She mentions seeing a dentist and reports having pocketing in her teeth, which the dentist attributed to either smoking or diabetes. She states she needs to get scaling done, with pockets in the back four or five teeth and in the front. I obtained verbal consent from the patient and/or patient's guardian to use ambient listening technology during this encounter before the ambient technology was engaged. Review of Systems Respiratory: Negative for chest tightness and shortness of breath. Cardiovascular: Negative for chest pain. Objective Vitals: 03/14/25 1429 Weight: (!) 312 lb 9.6 oz (142 kg) Body mass index is 47.53 kg/m?. Physical Exam Constitutional: General: She is not in acute distress. Appearance: She is not ill-appearing. HENT: Head: Normocephalic and atraumatic. Pulmonary: Effort: Pulmonary effort is normal. Comments: Speaking in full sentences. Skin: Coloration: Skin is not pale. Findings: No erythema or rash. Neurological: Mental Status: She is alert and oriented to person, place, and time. Psychiatric: Mood and Affect: Mood normal. Behavior: Behavior normal. Thought Content: Thought content normal. Judgment: Judgment normal. Data Reviewed Results An electronic signature was used to authenticate this note. VIKI Torres CNP 03/14/2025 2:29 PM Normal [facility] AMB POC HEMOGLOBIN A1Con HbA1c (Bld) [Mass fraction] 6.1 % Abnormal - 5.7 % [facility] HbA1c (Bld) [Mass fraction]o n 02-28-2025 Interpretation and review of laboratory results Abnormal [facility] Office Visiton 02-28-2025 Follow-up visit [id number] Hemant Garcia 1990 F Date Provider Department Center 02/28/2025 [id number] [facility] Family History Problem Relation Age of Onset Ovarian cancer Mother 30 Alcohol abuse Father Diabetes Father Comments: Retinopatthy, - on Insulin Prostate cancer Father Migraines Sister Migraines Sister No Known Problems Brother No Known Problems Brother Colon cancer Maternal Grandmother Cancer Maternal Grandmother Comments: brain abdomen or colon breast Breast cancer Maternal Grandmother Heart disease Paternal Grandfather Cancer Paternal Grandfather Comments: esophagus Uterine cancer Neg Hx Family Status - Relation Status Age at Mother Alive Father Alive Sister Alive Sister Alive Brother Alive Brother Alive Maternal Grandmother Maternal Grandfather Alive Paternal Grandmother Paternal Grandfather Neg Hx Level of Service:19232 [place] OFFICE/OUTPATIENT ESTABLISHED MOD MDM 30 MIN Reason for Visit and Comments: Diabetes [34] Weight Check [290] - Waist - 56.5in Health Maintenance [872] - Pap- agree Dental - refused Eye - refused COVID - refused Hep C - refused HIV - refused PNA - refused Hep B - refused [facility] Progress Noteon 02-28-2025 Progress Note 02/28/2025 Hemant Garcia (: 1990) is a 34 y.o. female , Established patient, here for evaluation of the following chief complaint(s): Diabetes, Weight Check (Waist - 56.5in), and Health Maintenance (Pap- agree/Dental - refused/Eye - refused/COVID - refused/Hep C - refused/HIV - refused/PNA - refused/Hep B - refused/) I obtained verbal consent from the patient and/or patient?s guardian to use ambient listening technology during this encounter before the ambient technology was engaged. Assessment/Plan 1. Type 2 diabetes mellitus with morbid obesity (E11.69) - chronic, improving - A1C significantly improved from 8.2% to 6.1% in 3 months - Patient reports blood sugar fluctuations, with occasional hypoglycemic episodes (50 mg/dL) - Advised on importance of regular, small meals with adequate protein and carbohydrates to prevent hypoglycemia - Recommended considering sugar-free protein powder as a supplement - Continue current management without medication - Encouraged to maintain current diet and exercise regimen 2. Morbid obesity with BMI of 45.0-49.9, adult (E66.01) - chronic, improving - Patient has lost 6 pounds since last visit - Continue Adipex (started January 10) - Virtual visit scheduled for March 14 at 1:40 PM for medication refill - Patient to have weight check on March 13 prior to virtual visit 3. Vaginal bleeding (N93.9) - acute, resolved - Patient reports recent ER visit for heavy vaginal bleeding - Referral placed to Dr. Huber ([facility]) for follow-up and Pap smear - Patient to re-establish care with [facility] due to 5-year lapse in visits 4. Pap smear of cervix with ASCUS, cannot exclude HGSIL (R87.611) - chronic, status unknown - History of atypical cells on previous Pap smear - [facility] referral placed for follow-up and new Pap smear I performed the above service AI scribed on my behalf, and I have reviewed and confirmed the accuracy and completeness of the medical documentation. Follow up in 13 days (on 03/13/2025) for nurse visit for weight. Subjective History of Present Illness Hemant Garcia, a 34-year-old female, presents for follow-up on diabetes and weight management. Diabetes Mellitus Type II: Most recent hemoglobin A1c was 8.2% on 12/06/24. Known diabetic complications: none Cardiovascular risk factors: diabetes mellitus and obesity (BMI >= 30 kg/m2)-she was started on Adipex about 1 month ago for weight management and she is down 6 pounds today from her previous appointment. States the Adipex helps to suppress her appetite and would like to continue taking it. Current diabetic medications include: None. It was recommended she take metformin, however, she declined stating she helped to reduce her hemoglobin A1c via lifestyle modifications instead. Eye exam current (within one year): no- reminded to schedule Dental exam current (within one year): no- reminded to schedule Weight trend: down 6 pounds over the past month Current diet: in general, a healthy diet Current exercise: walking Current monitoring regimen: uses [employer] Home blood sugar records: 130-200 Any episodes of hypoglycemia? Down to the 50's once a week- comes up with eating Is She on LUCINA inhibitor or angiotensin II receptor sona? No - declines Currently on statin therapy? No. Cholesterol levels were stable when checked on 12/04/2024. Component Ref Range & Units 2 mo ago CHOLESTEROL, TOTAL <200 mg/dL 140 HDL CHOLESTEROL > OR = 50 mg/dL 26 Low TRIGLYCERIDES <150 mg/dL 155 High LDL-CHOLESTEROL mg/dL (calc) 89 CHOL/HDLC RATIO <5.0 (calc) 5.4 High NON HDL CHOLESTEROL <130 mg/dL (calc) 114 Last urine microalbumin was 2 mg/L on 01/10/25. Last foot exam was 01/10/25. Was seen in the emergency room on 02/01/2025 due to vaginal bleeding. States she was filling three super tampons. She mentions it occurred the day before her wedding. Had a ultrasound of her pelvis completed that was negative for acute findings. There were no adnexal masses or significant free pelvic fluid. Has seen Dr. Huber in the past for her well female exams but it has been over 5 years and she would like a referral to see them again. States symptoms have resolved and did not recur since her ER visit. Health Maintenance: Sees Dr. Huber for her WFE but has not seen him in about 5 years- would like a referral today. Has a history of Pap with atypical cells. Tdap current: 04/25/15. Declines to be vaccinated for COVID-19. Declines screening for HIV and Hep C. Declines a pneumococcal vaccination. Declines to be vaccinated for Hep B. Review of Systems Constitutional: Negative for chills and fever. Respiratory: Negative for shortness of breath. Cardiovascular: Negative for chest pain. Gastrointestinal: Negative for abdominal distention and abdominal pain. Genitourinary: Negative for pelvic pain. Skin: Negative for color change, pallor, rash and wound. (more content not included)... [address] 02-16-2025 36 PA submitted 02/[address] 02-12-2025 36 Reviewed chart. Refi ll appropriate. RX sent. [facility] 36 CSA Adipex 01/10/25 [place] [address] Medication name: phentermine (Adipex-P) 37.5 MG tablet Medication dosage: 37.5 mg (Miligrams Monthly quantity needed: 30 How many day supply requestin days Medication route: oral (PO) Medication administration time(s): daily If taking medication PRN, reason for taking medication: N/A If this is a controlled substance do you receive this or any other controlled medication from any other doctor or facility: N/A Ordering provider: [facility] Date of last office visit: 01/10/25 Date of next office visit: 02/28/25 Date of last refill: (see medication tab): 01/10/25 Updated/Validated preferred pharmacy: Yes Patient instructed to contact the pharmacy prior to picking up the medication: Yes [facility] 36on 02-01-2025 36 Noted. Agree with recommendation. [facility] 36 S: Patient called [facility] with complaint of severe menstrual bleeding and clots B: started about 4 days ago A: Pt complains of needing to change her pad every 20 min. She said she has been bleeding through a tampon and a pad today. She is feeling weak, but not too weak to stand. R: Pt advised to go to ER. She will go to [facility]. She said Dr Huber is her OBGYN but she hasn't been to that office in at least 5 years. I told the patient she will be considered a new patient. She said she will call back after she is seen in ER to schedule a new patient visit. Reason for Disposition SEVERE abdominal pain (e.g., excruciating) Protocols used: Vaginal Bleeding - [id number] Normal [facility] BASIC METABOLIC PANELon 01-08 Anion gap [Moles/Vol] 9 mmol/L Normal 3-13 [facility] Comment on above: Performed By: #### L [id number], LAB15 #### Freelance Web Designer: CONCHA YOUNG ([id number]) [facility] (SWRLAB) [address] [place] [address] Calcium [Mass/Vol] 9.1 mg/dL Normal 8.4-10.2 [facility] Comment on above: Performed By: #### L [id number], LAB15 #### Freelance Web Designer: CONCHA YOUNG ([id number]) [facility] (SWRL[facility]) [address] [place] [address] [place] Chloride [Moles/Vol] 107 mmol/L Normal 98-107 [facility] Comment on above: Performed By: #### L [id number], LAB15 #### Freelance Web Designer: CONCHA YOUNG ([id number]) [facility] (SWRLAB) [address] [place] [address] [place] CO2 [Moles/Vol] 25 mmol/L Normal 22-29 [facility] Comment on above: Performed By: #### L 143, LAB15 #### Freelance Web Designer: CONCHA YOUNG ([id number]) [facility] (SWRLAB) [address] [place] [address] [place] Creatinine [Mass/Vol] 1.03 mg/dL Normal 0.57-1.11 [facility] Comment on above: Performed By: #### L 143, LAB15 #### Freelance Web Designer: CONCHA YOUNG ([id number]) [facility] P[facility]LETI[facility] RITTMAN (SWRLAB) [address] [place] [address] [place] GLOMERULAR FILTRATION RATE ML/MIN/1.73 SQ M.PREDICTED 74.2 mL/min/1.73m*2 Normal >60.0 [facility] Comment on above: Result Comment: Calc ulation based on the Chronic Kidney Disease Epidemiology Collaboration (CKD-EPI) equation refit without adjustment for race Performed By: #### L 143, LAB15 #### Freelance Web Designer: CONCHA YOUNG ([id number]) [facility]TM[facility] (SWRLAB) [address] [place] [address] [place] Glucose [Mass/Vol] 107 mg/dL High 74-100 [facility] Comment on above: Performed By: #### L 143, LAB15 #### Freelance Web Designer: CONCHA YOUNG ([id number]) [facility] PELLETI[facility] RITTMAN (SWRLAB) [address] [place] [address] [place] Potassium [Moles/Vol] 3.4 mmol/L Low 3.5-5.1 [facility] Comment on above: Result Comment: [facility] potassium values may be up to 0.5 mmol/L lower than serum values. Performed By: #### L [id number], LAB15 #### Freelance Web Designer: CONCHA YOUNG ([id number]) [facility]LETI[facility] R[facility]TMAN (SWRLAB) [address] [place] [address] [place] Sodium [Moles/Vol] 141 mmol/L Normal 136-145 [facility] Comment on above: Performed By: #### L [id number], LAB15 #### Freelance Web Designer: CONCHA YOUNG ([id number]) [facility] (SWRLAB) [address] Urea nitrogen [Mass/Vol] 10 mg/dL Normal 8-21 [facility] Comment on above: Performed By: #### L [id number], LAB15 #### Freelance Web Designer: CONCHA YOUNG ([id number]) [facility] ABDLULAHILIYAH PREET (SWRLAB) [address] BLOOD TYPE AND SCREEN GELon 02-01-2025 ABO GROUPING O Normal [facility] Comment on above: Performed By: #### L [id number] #### Freelance Web Designer: GEORGI CARY ([id number]) [facility] ([facility]) [address] RH TYPE IN BLOOD Positive Normal [facility] Comment on above: Performed By: #### L [id number] #### Freelance Web Designer: GEORGI CARY ([id number]) [facility] ([facility]) [address] Basic metabolic 1998 panelon 02-01-2025 Anion gap [Moles/Vol] 9 mmol/L 3 - 13 mmol/L [facility] Calcium [Mass/Vol] 9.1 mg/dL 8.4 - 10. 2 mg/dL [facility] Chloride [Moles/Vol] 107 mmol/L 98 - 10 7 mmol/L [facility] CO2 [Moles/Vol] 25 mmol/L 22 - 29 mmol/L [facility] Creatinine [Mass/Vol] 1.03 mg/dL 0.57 - 1.11 mg/dL [facility] GFR/1.73 sq M.predicted (S/P/Bld) [Vol rate/Area] 74.2 mL/min - PINF [facility] Comment on above: Calculation based on the Chronic Kidney Disease Epidemiology Collaboration (CKD-EPI) equation refit without adjustment for race Glucose [Mass/Vol] 107 mg/dL High 74 - 100 mg/dL [facility] Interpretation and review of laboratory results Abnormal [facility] Potassium [Moles/Vol] 3.4 mmol/L Low 3.5 - 5.1 mmol/L [facility] Comment on above: Plasma potassium prerna ues may be up to 0.5 mmol/L lower than serum values. Sodium [Moles/Vol] 141 mmol/L 136 - 145 mmol/L [facility] Urea nitrogen [Mass/Vol] 10 mg/dL 8 - 21 mg/dL [facility] Blood type and Crossmatch pa marvin (Bld)on 02-01-2025 ABO group Nom (Bld) O [facility] Blood group antibody screen GEL Ql Negative [facility] D Ag Ql (RBC) Positive [facility] CBC W Auto Differential pane l (Bld)on 02-01-2025 Basophils (Bld) [#/Vol] 0 10*3/uL 0.0 - 0.2 10*3/uL [facility] Basophils/100 WBC (Bld) 0.5 % 0.0 - 2.0 % [facility] Eosinophils (Bld) [#/Vol] 0.2 10*3/uL 0.0 - 0.5 10*3/uL [facility] Eosinophils/100 WBC (Bld) 1.9 % 0.0 - 6.0 % [facility] Erythrocyte distribution width (RBC) [Ratio] 13.2 % 11.5 - 15.0 % [facility] Hematocrit (Bld) [Volume fraction] 37.5 % 35.0 - 47.0 % [facility] Hemoglobin (Bld) [Mass/Vol] 12.7 g/dL 11.7 - 16.0 g/dL [facility] Immature granulocytes (Bld) [#/Vol] 0 10*3/uL NINF - 0.1 10*3/uL [facility] Immature granulocytes/100 WBC (Bld) 0.2 % 0.0 - 2.0 % [facility] Interpretation and review of laboratory results Abnormal [facility] Lymphocytes (Bld) [#/Vol] 1.9 10*3/uL 1.0 - 4.3 10*3/uL [facility] Lymphocytes/100 WBC (Bld) 22 % 15.0 - 45.0 % [facility] MCH (RBC) [Entitic mass] 26.6 pg 26. 0 - 34.0 pg [facility] MCHC (RBC) [Mass/Vol] 33.9 % 30.5 - 36.0 % [facility] MCV (RBC) [Entitic vol] 78.6 fL 77.0 - 99.0 fL [facility] Monocytes (Bld) [#/Vol] 0.4 10*3/uL 0.0 - 0.9 10*3/uL [facility] Monocytes/100 WBC (Bld) 4.4 % Low 5.0 - 13.0 % [facility] Neutrophils (Bld) [#/Vol] 6.2 10*3/uL 1.8 - 7.5 10*3/uL [facility] Neutrophils/100 WBC (Bld) 71 % 38.0 - 82.0 % [facility] Nucleated RBC/100 WBC (Bld) [Ratio] 0 % [facility] Platelet mean volume (Bld) [Entitic vol] 10 fL 9.0 - 12.7 fL [facility] Comment on above: MPV is a calculated measurement using platelet volume ratio Platelets (Bld) [#/Vol] 250 10*3/uL 140 - 440 10*3/uL [facility] RBC (Bld) [#/Vol] 4.77 10*6/uL 3.80 - 5.2 0 10*6/uL [facility] WBC (Bld) [#/Vol] 8.7 10*3/uL 3.6 - 10.7 10*3/uL [facility] CBC WITH AUTO DIFFERENTIALon 02-01-2025 Basophils (Bld) [#/Vol] 0.0 10*3/uL Normal 0.0-0.2 [facility] Comment on above: Performed By: #### L [id number] #### Freelance Web Designer: GEORGI CARY ([id number]) [facility] ([facility] [address] Basophils/100 WBC (Bld) 0.5 % Normal 0.0-2.0 [facility] Comment on above: Performed By: #### L [id number] #### Freelance Web Designer: GEORGI CARY ([id number]) [facility] (SBHLAB) [address] [place] [address] [place] Eosinophils (Bld) [#/Vol] 0.2 10*3/uL Normal 0.0-0.5 [facility] Comment on above: Performed By: #### L [id number] #### Freelance Web Designer: GEORGI CARY ([id number]) [facility] [address] Eosinophils/100 WBC (Bld) 1.9 % Normal 0.0-6.0 [facility] Comment on above: Performed By: #### L [id number] #### Freelance Web Designer: GEORGI CARY ([id number]) [facility] ([facility]) [address] Erythrocyte distribution width (RBC) [Ratio] 13.2 % Normal 11.5-15.0 [facility] Comment on above: Performed By: #### L [id number] #### Freelance Web Designer: GEORGI CARY ([id number]) [facility] ([facility]) [address] Hematocrit (Bld) [Volume fraction] 37.5 % Normal 35.0-47.0 [facility] Comment on above: Performed By: #### L [id number] #### Freelance Web Designer: GEORGI CARY ([id number]) [facility] ([facility]) [address] Hemoglobin (Bld) [Mass/Vol] 12.7 g/dL Normal 11.7-16.0 [facility] Comment on above: Performed By: #### L [id number] #### Freelance Web Designer: GEORGI CARY ([id number]) [facility] [address] IMMATURE GRANS % 0.2 % Normal 0.0-2.0 [facility] Comment on above: Performed By: #### L [id number] #### Freelance Web Designer: GEORGI CARY ([id number]) [facility] ([facility]) [address] IMMATURE GRANS ABSOLUTE 0.0 10*3/uL Normal <0.1 [facility] Comment on above: Performed By: #### L [id number] #### Freelance Web Designer: GEORGI CARY ([id number]) [facility] ([facility]) [address] Lymphocytes (Bld) [#/Vol] 1.9 10*3/uL Normal 1.0-4.3 [facility] Comment on above: Performed By: #### L [id number] #### Freelance Web Designer: GEORGI CARY ([id number]) [facility] [address] Lymphocytes/100 WBC (Bld) 22.0 % Normal 15.0-45.0 [facility] Comment on above: Performed By: #### L [id number] #### Freelance Web Designer: GEORGI CARY ([id number]) [facility] ([facility]) [address] MCH (RBC) [Entitic mass] 26.6 pg Normal 26.0-34.0 [facility] Comment on above: Performed By: #### L [id number] #### Freelance Web Designer: GEORGI CARY ([id number]) [facility] ([facility]) [address] MCHC 33.9 % Normal 30.5-36.0 [facility] Comment on above: Performed By: #### L [id number] #### Freelance Web Designer: GEORGI CARY ([id number]) [facility] ([facility]) [address] MCV (RBC) [Entitic vol] 78.6 fL Normal 77.0-99.0 [facility] Comment on above: Performed By: #### L [id number] #### Freelance Web Designer: GEORGI CARY ([id number]) [facility] ([facility]) [address] Monocytes (Bld) [#/Vol] 0.4 10*3/uL Normal 0.0-0.9 [facility] Comment on above: Performed By: #### L [id number] #### Freelance Web Designer: GEORGI CARY ([id number]) [facility] (SB[facility]) [address] Monocytes/100 WBC (Bld) 4.4 % Low 5.0-13.0 [facility] Comment on above: Performed By: #### L [id number] #### Freelance Web Designer: GEORGI CARY ([id number]) [facility] ([facility]) [address] NEUTROPHILS ABSOLUTE 6.2 10*3/uL Normal 1.8-7.5 [facility] Comment on above: Performed By: #### L [id number] #### Freelance Web Designer: GEORGI CARY ([id number]) [facility] ([facility]) [address] Neutrophils/100 WBC (Bld) 71.0 % Normal 38.0-82.0 [facility] Comment on above: Performed By: #### L [id number] #### Freelance Web Designer: GEORGI CARY ([id number]) [facility] ([facility]) [address] NRBC 0.0 /100 WBCs Normal 0.0-2.0 [facility] Comment on above: Performed By: #### L [id number] #### Freelance Web Designer: GEORGI CARY ([id number]) [facility] ([facility]) [address] Platelet mean volume (Bld) [Entitic vol] 10.0 fL Normal 9.0-12.7 [facility] Comment on above: Result Comment: MPV is a calculated measurement using platelet volume ratio Performed By: #### L [id number] #### Freelance Web Designer: GEORGI CARY ([id number]) [facility] ([facility]) [address] Platelets (Bld) [#/Vol] 250 10*3/uL Normal 140-440 [facility] Comment on above: Performed By: #### L [id number] #### Freelance Web Designer: GEORGI MCKENZIECER ([id number]) [facility] ([facility]) [address] RBC (Bld) [#/Vol] 4.77 10*6/uL Normal 3.80-5.20 [facility] Comment on above: Performed By: #### L [id number] #### Freelance Web Designer: GEORGI MCKENZIECER ([id number]) [facility] ([facility]) [address] WBC (Bld) [#/Vol] 8.7 10*3/uL Normal 3.6-10.7 [facility] Comment on above: Performed By: #### L [id number] #### Freelance Web Designer: GEORGI GRANADOSBRENDA ([id number]) [facility] ([facility]) [address] ED Nursing Noteon 02-01-2025 ED Nursing Note Patient complains of heavy vaginal bleeding x 4 days and abdominal cramping and low back pain. LMP sometime in November. Patient had tubal ligation done approx 5 years ago. Patient is changing her pad every 20 minutes and is also wearing a tampon. Patient endorses lightheadedness. Patient states she has maxed out on tylenol, ibuprofen, imitrex, and midol trying to control the pain. Normal [facility] ED Provider Noteon ED Provider Note EMERGENCY DEPARTMENT ENCOUNTER Pt Name: Hemant Garcia Birthdate 1990 Date of evaluation: 02/01/2025 ED Provider: Stormy Ken DO CHIEF COMPLAINT Chief Complaint Patient presents with Vaginal Bleeding HISTORY OF PRESENT ILLNESS (Location/Symptom, Timing/Onset, Context/Setting, Quality, Duration, Modifying Factors, Severity) Note limiting factors. I wore appropriate PPE for the entirety of this encounter. HPI Hemant Garcia is a 34 y.o. who presents to the emergency department with chief complaint of with heavy vaginal bleeding for the last 4 days. Patient states that her last period was 2 months ago. Started having another period 4 days ago and states that this period is very heavy with passage of large clots. Will soak through a tampon in 20 minutes. Is also using a pad as well. Does have some pelvic cramping worse on the right-hand side. History of salpingectomy on the side in the past. Patient feels lightheaded but no nausea or vomiting. No dysuria urinary frequency or urgency. Nursing Notes were reviewed. Limitations to history: None Outside historians: None REVIEW OF SYSTEMS Review of Systems Pertinent positives and negatives as per HPI. PAST MEDICAL HISTORY Medical History[1] SURGICAL HISTORY Surgical History[2] CURRENT MEDICATIONS Previous Medications ALBUTEROL 108 (90 BASE) MCG/ACT INHALER Inhale 2 puffs every 6 hours as needed for wheezing. AMITRIPTYLINE (ELAVIL) 50 MG TABLET Take 1 tablet (50 mg) by mouth daily with supper. Do not start before October 03, 2024. CONTINUOUS GLUCOSE SENSOR (Applied X-rad TechnologySTYLE LEILANI 3 PLUS SENSOR) MISC 1 each every 14 (fourteen) days. PHENTERMINE (ADIPEX-P) 37.5 MG TABLET Take 1 tablet (37.5 mg) by mouth every morning (before breakfast). SUMATRIPTAN (IMITREX) 100 MG TABLET Take 1 tablet (100 mg) by mouth Once as needed for migraine for up to 1 dose. May repeat dose once in 2 hours if no relief. Do not exceed 2 doses in 24 hours. ALLERGIES Compazine [prochlorperazine] and Metoclopramide FAMILY HISTORY Family History[3] SOCIAL HISTORY Social History[4] SCREENINGS PHYSICAL EXAM ED Triage Vitals [02/01/25 1714] Temp Heart Rate Resp BP 36.7 ?C (98 ?F) 95 18 131/88 SpO2 Temp Source Heart Rate Source Patient Position 99 % Temporal Monitor Sitting BP Location FiO2 (%) Right arm -- Physical Exam Constitutional: Well-developed and well-nourished. No distress. HENT: Mucous membranes moist Cardiovascular: Regular rate and rhythm. No abnormal heart sounds heard. Pulmonary/Chest: Effort normal with no conversational dyspnea. Clear to auscultation bilaterally. Abdominal: Soft. No tenderness. No distension or guarding. No CVA tenderness bilaterally Genitourinary: Deferred Musculoskeletal: Normal range of motion Neuro: No focal deficit Skin: Skin is warm and dry. Psychiatric: Normal mood and affect. DIAGNOSTIC RESULTS Procedures/EKG: EKG was reviewed by myself. Physician EKG interpretation can be found in [facility] RADIOLOGY (Per Emergency Physician): Interpretation per the Radiologist below, if available at the time of this note: US pelvis transvaginal Final Result 1. No acute findings. Report Dictated on Electronically Signed By: Justyn Flor MD Electronically Signed Date/Time: 02/01/2025 6:14 PM EDT ED BEDSIDE ULTRASOUND: Performed by ED Physician - none LABS: Labs Reviewed CBC WITH AUTO DIFFERENTIAL - Abnormal Result Value Auto WBC 8.7 RBC 4.77 Hemoglobin 12.7 Hematocrit 37.5 MCV 78.6 MCH 26.6 MCHC 33.9 RDW 13.2 Platelets 250 MPV 10.0 nRBC 0.0 Neutrophils Relative 71.0 Lymphocytes Relative 22.0 Monocytes Relative 4.4 (*) Eosinophils Relative 1.9 Basophils Relative 0.5 Immature Grans % 0.2 Neutrophils Absolute 6.2 Lymphocytes Absolute 1.9 Monocytes Absolute 0.4 Eosinophils Absolute 0.2 Basophils Absolute 0.0 Immature Grans Absolute 0.0 BASIC METABOLIC PANEL - Abnormal SODIUM 141 POTASSIUM 3.4 (*) CHLORIDE 107 CARBON DIOXIDE 25 UREA NITROGEN 10 CREATININE 1.03 GLUCOSE 107 (*) CALCIUM 9.1 ANION GAP 9 eGFR 74.2 HCG QUANTITATIVE BLOOD HCG QUANTITATIVE <2.5 Narrative: Values in should double every 2 to 3 days for the first 6 weeks. Elevated concentrations of human chorionic gonadotropin (hCG) measured in the first trimester of are observed in normal , but may serve as an indication of chorionic carcinoma, hydatiform mole, or multiple . Decreasing hCG concentrations indicate threatened or missed , recent termination of , ectopic , gestosis or intrauterine . Erica- and postmenopausal females may have detectable hCG concentrations (< or = to 14 mIU/mL) due to pituitary production of hCG. Serum follicle-stimulating hormone measurement may aid in ruling-out in this population. Cutoffs of (more content not included)... Normal [facility] HCG QUANTITATIVE BLOODon HCG QUANTITATIVE <2.5 Normal Females <5 [facility] Comment on above: Result Comment: GATITO Kim COMMENTS: Values in should double every 2 to 3 days for the first 6 weeks. Elevated concentrations of human chorionic gonadotropin (hCG) measured in the first trimester of are observed in normal , but may serve as an indication of chorionic carcinoma, hydatiform mole, or multiple . Decreasing hCG concentrations indicate threatened or missed , recent termination of , ectopic , gestosis or intrauterine . Erica- and postmenopausal females may have detectable hCG concentrations (< or = to 14 mIU/mL) due to pituitary production of hCG. Serum follicle-stimulating hormone measurement may aid in ruling-out in this population. Cutoffs of greater than 20 to 45 mIU/mL have been suggested and are method dependent. False-elevations (called phantom human chorionic gonadotropin: hCG) may occur with patients who have human antianimal or heterophilic antibodies. Some specimens may not dilute linearly due to abnormal forms of hCG. Elevated hCG concentrations not associated with are found in patients with other diseases such as tumors of the germ cells, ovaries, bladder, pancreas, stomach, lungs, and liver. This test is not intended to detect or monitor tumors or gestational trophoblastic disease. Performed By: #### L [id number] #### Freelance Web Designer: CONCHA YOUNG ([id number]) [facility] [address] [place] [address] Laboratory - Chemistry and C hemistry - challengeon 02-01-2025 HCG.beta subunit Qn Females <5 mIU/mL [facility] No Panel Informationon 02-01 Values in should double every 2 to 3 days for the first 6 weeks. Elevated concentrations of human chorionic gonadotropin (hCG) measured in the first trimester of are observed in normal , but may serve as an indication of chorionic carcinoma, hydatiform mole, or multiple . Decreasing hCG concentrations indicate threatened or missed , recent termination of , ectopic , gestosis or intrauterine . Erica- and postmenopausal females may have detectable hCG concentrations (< or = to 14 mIU/mL) due to pituitary production of hCG. Serum follicle-stimulating hormone measurement may aid in ruling-out in this population. Cutoffs of greater than 20 to 45 mIU/mL have been suggested and are method dependent. False-elevations (called phantom human chorionic gonadotropin: hCG) may occur with patients who have human antianimal or heterophilic antibodies. Some specimens may not dilute linearly due to abnormal forms of hCG. Elevated hCG concentrations not associated with are found in patients with other diseases such as tumors of the germ cells, ovaries, bladder, pancreas, stomach, lungs, and liver. This test is not intended to detect or monitor tumors or gestational trophoblastic disease. [facility] PELVIS TRANSVAGINALon US PELVIS TRANSVAGINAL Patient Name: HEMANT TRISTAN : 1990 Exam Date/Time: 02/01/2025 17:35 Procedure: US PELVIS TRANSVAGINAL Ordering Provider: KEN COURTNEY Reason For Exam: heavy vaginal bleeding ULTRASOUND OF PELVIS, TRANSVAGINAL CLINICAL INDICATION: heavy vaginal bleeding TECHNIQUE: Real-time, transvaginal sonography of the pelvis. Doppler and spectral waveform analysis of the ovaries, if they were visualized. COMPARISON: Ultrasound , March,. FINDINGS: The uterus measures 11.6 x 5.6 x 5.5 cm and appears grossly unremarkable. The endometrial stripe is within normal limits and measures 3.4 mm in AP dimension. The right ovary measures 3.0 x 1.7 x 2.6 cm and is grossly unremarkable. The left ovary measures 2.3 x 2.0 x 1.8 cm and is grossly unremarkable. Duplex Doppler shows appropriate blood flow in the bilateral ovaries. No adnexal masses or significant free pelvic fluid. IMPRESSION: 1. No acute findings. Report Dictated on Electronically Signed By: Justyn Flor MD Electronically Signed Date/Time: 02/01/2025 6:14 PM EDT [facility] US Pelvis transvaginalon 1. No acute findings. Report Dictated on Electronically Signed By: Justyn Flor MD Electronically Signed Date/Time: 02/01/2025 6:14 PM EDT [facility] Patient Name: HEMANT PAREDES : 1990 Exam Date/Time: 02/01/2025 17:35 Procedure: US PELVIS TRANSVAGINAL Ordering Provider: KEN COURTNEY Reason For Exam: heavy vaginal bleeding ULTRASOUND OF PELVIS, TRANSVAGINAL CLINICAL INDICATION: heavy vaginal bleeding TECHNIQUE: Real-time, transvaginal sonography of the pelvis. Doppler and spectral waveform analysis of the ovaries, if they were visualized. COMPARISON: Ultrasound , March,. FINDINGS: The uterus measures 11.6 x 5.6 x 5.5 cm and appears grossly unremarkable. The endometrial stripe is within normal limits and measures 3.4 mm in AP dimension. The right ovary measures 3.0 x 1.7 x 2.6 cm and is grossly unremarkable. The left ovary measures 2.3 x 2.0 x 1.8 cm and is grossly unremarkable. Duplex Doppler shows appropriate blood flow in the bilateral ovaries. No adnexal masses or significant free pelvic fluid. [facility] Justyn Flor MD - 02/01/2025 Patient Name: HEMANT GARCIA : 1990 Exam Date/Time: 02/01/2025 17:35 Procedure: US PELVIS TRANSVAGINAL Ordering Provider: KEN COURTNEY Reason For Exam: heavy vaginal bleeding ULTRASOUND OF PELVIS, TRANSVAGINAL CLINICAL INDICATION: heavy vaginal bleeding TECHNIQUE: Real-time, transvaginal sonography of the pelvis. Doppler and spectral waveform analysis of the ovaries, if they were visualized. COMPARISON: Ultrasound , March,. FINDINGS: The uterus measures 11.6 x 5.6 x 5.5 cm and appears grossly unremarkable. The endometrial stripe is within normal limits and measures 3.4 mm in AP dimension. The right ovary measures 3.0 x 1.7 x 2.6 cm and is grossly unremarkable. The left ovary measures 2.3 x 2.0 x 1.8 cm and is grossly unremarkable. Duplex Doppler shows appropriate blood flow in the bilateral ovaries. No adnexal masses or significant free pelvic fluid. IMPRESSION: 1. No acute findings. Report Dictated on Electronically Signed By: Justyn Flor MD Electronically Signed Date/Time: 02/01/2025 6:14 PM EDT [facility] Radiology Study observation (narrative) [facility] [employer] US Pelvis transvaginalOrdere d By: Justyn Flor on 02-01-2025 [facility] Work Phone: Office Visiton 01-10-2025 Follow-up visit [id number] Hemant Garcia 1990 F Date Provider Department Center 01/10/2025 [id number] [facility] Family History Problem Relation Age of Onset Ovarian cancer Mother 30 Alcohol abuse Father Diabetes Father Comments: Retinopatthy, - on Insulin Prostate cancer Father Migraines Sister Migraines Sister No Known Problems Brother No Known Problems Brother Colon cancer Maternal Grandmother Cancer Maternal Grandmother Comments: brain abdomen or colon breast Breast cancer Maternal Grandmother Heart disease Paternal Grandfather Cancer Paternal Grandfather Comments: esophagus Uterine cancer Neg Hx Family Status - Relation Status Age at Mother Alive Father Alive Sister Alive Sister Alive Brother Alive Brother Alive Maternal Grandmother Maternal Grandfather Alive Paternal Grandmother Paternal Grandfather Neg Hx Level of Service:33066 [place] OFFICE/OUTPATIENT ESTABLISHED MOD MDM 30 MIN Reason for Visit and Comments: Follow-up [127346] Diabetes [34] Health Maintenance [872] - Dm eye- not done Dm dental- not done Blood Work [221799] Normal [facility] Progress Noteon 01-10-2025 Progress Note 01/10/2025 Hemantsheridan Garcia (: 1990) is a 34 y.o. female , Established patient, here for evaluation of the following chief complaint(s): Follow-up, Diabetes, Health Maintenance (Dm eye- not done /Dm dental- not done ), and Blood Work I obtained verbal consent from the patient and/or patient?s guardian to use ambient listening technology during this encounter before the ambient technology was engaged. Assessment/Plan 1. Type 2 diabetes mellitus with morbid obesity (HCC) - Microalbumin / creatinine urine ratio - Hm Diabetes Foot Exam - Continuous Glucose Sensor (FreeStyle Leilani 3 Sensor) misc; 1 each every 14 (fourteen) days., Starting 01/10/2025, Normal - Chronic, newly diagnosed - A1C 8.2% - Declines taking metformin stating she hopes to reduce her hemoglobin A1c via lifestyle modifications - Patient using Freestyle Leilani sensor for blood glucose monitoring - Discussed dietary modifications, focusing on low-carb options and avoiding white bread - Recommended regular meals to prevent hypoglycemic episodes - Advised on proper timing of meals and snacks, especially before exercise - Discussed importance of annual urine protein check and foot examinations - Ordered Freestyle Leilani 3 sensor - Follow up in 4 weeks for diabetes management and weight check - Plan to recheck A1C at next visit 2. Encounter for diabetic foot exam (HCC) - Diabetes Foot Exam 3. Encounter for diabetes education - See below for education notes from visit. 4. Morbid obesity with BMI of 45.0-49.9, adult ([facility]) - phentermine (Adipex-P) 37.5 MG tablet; Take 1 tablet (37.5 mg) by mouth every morning (before breakfast)., Starting Wed01/10/2025, Until Wed02/09/2025, Normal - Chronic, not at goal - Discussed dietary modifications and current exercise routine - Prescribed Adipex for weight loss - Provided patient with informational sheets on low-carb diet and carbohydrate counting - OARRS report reviewed with no discrepancies. CSA signed today. Follow up as scheduled. - Follow up in 4 weeks to assess progress 5. Elevated liver enzymes - Hepatic function panel - Acute, stable - Ordered repeat liver function tests today for follow up 6. Intractable migraine with aura without status migrainosus - SUMAtriptan (Imitrex) 100 MG tablet; Take 1 tablet (100 mg) by mouth Once as needed for migraine for up to 1 dose. May repeat dose once in 2 hours if no relief. Do not exceed 2 doses in 24 hours., Starting Wed01/10/2025, Normal - Chronic, unchanged and not at goal - Currently on amitriptyline 50mg daily and PRN Imitrex - Increased as-needed Imitrex from 50mg to 100mg - Advised to follow up with Dr. Concepcion (neurologist) for potential adjustments to amitriptyline regimen Diabetic Education Notes: Discussed, at length, a healthy diet low in carbohydrates and sugars as well as low in cholesterol and saturated fats. Educated on carbohydrate counting and healthy food choices. Dietary Education- Total carbohydrate intake 50-60% of total caloric intake. -Fats should be 25-30% of total calories. - Fiber should be 25g per 1000 calories - Protein should be 10-20% of total calories Encouraged to call the office if she has any questions/concerns with checking her blood sugar at home or if she has new questions that arise- verbalized understanding. Gave parameters for when checking blood sugars and when to notify the office. Gave informational booklet on carbohydrate counting and a booklet to record blood sugars in for review. Educated on exercise and the benefits of blood sugar control. Educated on good foot hygiene. Discussed signs and symptoms of hypoglycemia and hyperglycemia- verbalized understanding. Information provided in handouts/booklets and in AVS on diabetes, nutrition, and exercise for patient review. Goals set/reviewed together for diabetes management. On this date, 01/10/25, I have spent 40 minutes reviewing previous notes, test results, and face to face with the patient discussing the diagnosis and importance of compliance with the treatment plan as well as documenting on the day of the visit. I performed the above service AI scribed on my behalf, and I have reviewed and confirmed the accuracy and completeness of the medical documentation. Follow up in about 4 weeks (around 02/07/2025) for diabetes management and weight check. Subjective History of Present Illness Hemant Garcia, a 34-year-old female, presents for diabetes education following a recent diagnosis of diabetes with an A1C of 8.2% as well as multiple other health concerns including diabetes and abnormalities on recent blood work. She reports a significant family history of diabetes on her paternal side. Hemant has been tracking her blood sugar using a Freestyle Leilani sensor provided by her family. She notes occasional high readings of 220-250, but more frequently experiences low blood sugar episodes, wit (more content not included)... Normal [facility] Progress Note Patient verified by last name and . Normal [facility] US ABDOMEN COMPLETEon 2024 US ABDOMEN COMPLETE Patient Name: HEMANT PAREDES : 1990 Exam Date/Time: 12/09/2024 11:21 Procedure: US ABDOMEN COMPLETE Ordering Provider: [place] Reason For Exam: RUQ pain Examination: Abdominal Ultrasound Indication: RUQ pain Findings: Multiple static bradley scale and color Doppler sonographic images of the abdomen are submitted for interpretation. Diffusely increased echogenicity of the liver is most suggestive of diffuse fatty infiltration.. The liver measures 21 cm in craniocaudad dimension There are no focal liver lesions on the provided images. There is no intrahepatic biliary ductal dilatation appreciated. The gallbladder is unremarkable, without evidence of gallstones, pericholecystic fluid or gallbladder wall thickening. The common duct measures 4.4 mm. Negative sonographic Valdez's sign was documented by the mold technician. The visualized pancreatic head/body is grossly unremarkable, however the pancreas is not visualized in it's entirety, either secondary to technical factors or bowel gas. The right kidney measures 12.5 x 6.9 x 6.2 cm and demonstrates a grossly normal sonographic appearance. The left kidney measures 12.6 x 5.3 x 4.3 cm and demonstrates a grossly normal sonographic appearance. The spleen measures 17.2 cm. The visualized upper aorta and IVC are grossly unremarkable. IMPRESSION: Impression: Diffuse fatty infiltration of the liver with hepatomegaly. Splenomegaly Report Dictated on Electronically Signed By: Klaus Kong MD Electronically Signed Date/Time: 12/09/2024 12:12 PM EDT [facility] US Abdomenon 12-09-2024 Impression: Diffuse fatty infiltration of the liver with hepatomegaly. Splenomegaly Report Dictated on Electronically Signed By: Klaus Kong MD Electronically Signed Date/Time: 12/09/2024 12:12 PM EDT [facility] 1990 [id number] Exam Date/Time: 12/09/2024 11:21 Procedure: US ABDOMEN COMPLETE Ordering Provider: SOU[place] Reason For Exam: RUQ pain Examination: Abdominal Ultrasound Indication: RUQ pain Findings: Multiple static bradley scale and color Doppler sonographic images of the abdomen are submitted for interpretation. Diffusely increased echogenicity of the liver is most suggestive of diffuse fatty infiltration.. The liver measures 21 cm in craniocaudad dimension There are no focal liver lesions on the provided images. There is no intrahepatic biliary ductal dilatation appreciated. The gallbladder is unremarkable, without evidence of gallstones, pericholecystic fluid or gallbladder wall thickening. The common duct measures 4.4 mm. Negative sonographic Valdez's sign was documented by the mold technician. The visualized pancreatic head/body is grossly unremarkable, however the pancreas is not visualized in it's entirety, either secondary to technical factors or bowel gas. The right kidney measures 12.5 x 6.9 x 6.2 cm and demonstrates a grossly normal sonographic appearance. The left kidney measures 12.6 x 5.3 x 4.3 cm and demonstrates a grossly normal sonographic appearance. The spleen measures 17.2 cm. The visualized upper aorta and IVC are grossly unremarkable. [facility] Klaus Kong MD - 12/09/2024 Patient Name: [facility]EMANT [facility]ARCIA : 1990 [id number] Exam Date/Time: 12/09/2024 11:21 Procedure: US ABDOMEN COMPLETE Ordering Provider: SOU[place] Reason For Exam: RUQ pain Examination: Abdominal Ultrasound Indication: RUQ pain Findings: Multiple static bradley scale and color Doppler sonographic images of the abdomen are submitted for interpretation. Diffusely increased echogenicity of the liver is most suggestive of diffuse fatty infiltration.. The liver measures 21 cm in craniocaudad dimension There are no focal liver lesions on the provided images. There is no intrahepatic biliary ductal dilatation appreciated. The gallbladder is unremarkable, without evidence of gallstones, pericholecystic fluid or gallbladder wall thickening. The common duct measures 4.4 mm. Negative sonographic Valdez's sign was documented by the mold technician. The visualized pancreatic head/body is grossly unremarkable, however the pancreas is not visualized in it's entirety, either secondary to technical factors or bowel gas. The right kidney measures 12.5 x 6.9 x 6.2 cm and demonstrates a grossly normal sonographic appearance. The left kidney measures 12.6 x 5.3 x 4.3 cm and demonstrates a grossly normal sonographic appearance. The spleen measures 17.2 cm. The visualized upper aorta and IVC are grossly unremarkable. IMPRESSION: Impression: Diffuse fatty infiltration of the liver with hepatomegaly. Splenomegaly Report Dictated on Electronically Signed By: Klaus Kong MD Electronically Signed Date/Time: 12/09/2024 12:12 PM EDT [facility] Radiology Study observation (narrative) [facility] US AbdomenOrdered By: Klaus Kong on 12-09-2024 [facility] Work Phone: Progress Noteon 12-06-2024 Progress Note Lab/venipuncture completed by [facility] 36on 12-05-2024 36 Noted. Thank you. [facility] 36 Called and spoke to Hemant, states she does not drink alcohol. Did say she took 4 ibuprofen's a couple days prior to appointment for a migraine. Scheduled for repeat glucose and A1C. [facility] 36 ----- Message from VIKI Donnelly CNP sent at 12/05/2024 8:24 AM EDT ----- Good cholesterol levels are low and triglyceride levels are mildly elevated. Other cholesterol levels are good. Regular cardiovascular exercise can help to bring up good cholesterol levels. Reducing sugar in the diet and increasing omega-3 fatty acids (fish) can help to bring down triglyceride levels. Blood sugar was high at 162. Needs to recheck a glucose with a hemoglobin A1c for further evaluation. Orders placed. Kidney function is normal. Liver enzymes are mildly elevated, but okay. Any recent Tylenol or alcohol use? Blood count is normal. Normal thyroid stimulating hormone level. Prolactin, luteinizing hormone, and follicle stimulating hormone levels are normal. Still waiting on estrogen level. [facility] Office Visiton 12-04-2024 Follow-up visit [id number] Hemant Garcia 1990 F Date Provider Department Center 12/04/2024 [id number] [facility] Family History Problem Relation Age of Onset Ovarian cancer Mother 30 Alcohol abuse Father Diabetes Father Comments: Retinopatthy, - on Insulin Prostate cancer Father Migraines Sister Migraines Sister No Known Problems Brother No Known Problems Brother Colon cancer Maternal Grandmother Cancer Maternal Grandmother Comments: brain abdomen or colon breast Breast cancer Maternal Grandmother Heart disease Paternal Grandfather Cancer Paternal Grandfather Comments: esophagus Uterine cancer Neg Hx Family Status - Relation Status Age at Mother Alive Father Alive Sister Alive Sister Alive Brother Alive Brother Alive Maternal Grandmother Maternal Grandfather Alive Paternal Grandmother Paternal Grandfather Neg Hx Level of Service:14895 [place] INITIAL PREVENTIVE MEDICINE NEW PT AGE 18-39YRS Reason for Visit and Comments: New Patient [542] - New to provider- pt is changing providers to Annual Exam [83] - Patient states that she has no smell or taste for about 10 days. States that she is SOB with body aches States that she has some abdominal pain after eating. Would like to talk about weight loss. Blood Work [[id number]] Health Maintenance [872] - Hiv/hep c screening- Mmr vaccine- Varicella vaccine- Hep b vaccine- Pcv 20 vaccine- Pap- Covid vaccine- Normal [facility] Progress Noteon 12-04-2024 Progress Note 12/04/2024 Hemant Garcia (: 1990) is a 34 y.o. female , Established patient, here for evaluation of the following chief complaint(s): New Patient (New to provider- pt is changing providers to ), Annual Exam (Patient states that she has no smell or taste for about 10 days. States that she is SOB with body aches States that she has some abdominal pain after eating. Would like to talk about weight loss. ), Blood Work, and Health Maintenance (Hiv/hep c screening-/Mmr vaccine-/Varicella vaccine-/Hep b vaccine-/Pcv 20 vaccine-/Pap-/Covid vaccine-) Assessment/Plan 1. Well adult exam - Encouraged a healthy diet low in cholesterol and saturated fats. - Encouraged regular exercise. 2. Encounter to establish care 3. Exercise-induced asthma - albuterol 108 (90 Base) MCG/ACT inhaler; Inhale 2 puffs every 6 hours as needed for wheezing., Starting 12/04/2024, Normal - Stable with PRN Albuterol. Will continue current treatment plan. 4. URI with cough and congestion - amoxicillin-clavulanate (Augmentin) 875-125 MG tablet; Take 1 tablet by mouth 2 times daily for 10 days., Starting 12/04/2024, Until Meliza 12/14/2024, Normal - albuterol 108 (90 Base) MCG/ACT inhaler; Inhale 2 puffs every 6 hours as needed for wheezing., Starting 12/04/2024, Normal - Saline nasal spray for congestion. - Encouraged increasing oral fluids to keep mucous secretions moist. - Encouraged tea with honey for throat discomfort and cough relief. - May use Tylenol/Motrin as needed for pain relief. - Sleep with humidified air. 5. Morbid obesity with BMI of 45.0-49.9, adult (HCC) - Comprehensive metabolic panel - TSH - CBC auto differential - Discussed potential medications for weight management, upper, will hold off on this today due to other current concerns and worries. Will do some blood work and imaging for follow-up on the abdominal pain and irregular menstrual cycles first. 6. Amenorrhea - Comprehensive metabolic panel - TSH - Estrogens, total - Follicle stimulating hormone - Luteinizing hormone - Prolactin - CBC auto differential - Will notify of blood work results. - Encouraged follow-up with [facility]. 7. RUQ abdominal pain - US abdomen complete - CBC auto differential - Comprehensive metabolic panel - Will obtain an ultrasound and blood work for further evaluation. 8. Nausea - CBC auto differential - Comprehensive metabolic panel - Will obtain an ultrasound and blood work for further evaluation. - Offered urine hCG in the office, but declined stating she just had a negative test 4 days ago at home and her has had a vasectomy. 9. Screening for diabetes mellitus - Comprehensive metabolic panel - Will notify of blood work results. 10. Screening for deficiency anemia - CBC auto differential - Will notify of blood work results. 11. Screening for lipoid disorders - Lipid panel - Will notify of blood work results. 12. Intractable migraine with aura without status migrainosus - Stable. Follow up with specialist as directed. 13. Inflammatory arthritis - Symptoms stable. 14. Celiac disease - Encouraged follow-up with gastroenterology. Follow up in about 3 weeks (around 12/25/2024) for follow up on obesity and stomach pain. Subjective History of Present Illness Madiha presents today to establish care and for her annual physical. Also has a list of current health concerns and worries she would like to discuss today while she is here. Previous PCP was Dr. Ortega. Does follow up with specialist: Dr. Concepcion (migraine management). Past Medical History Positive for: Migraines, RA, Celiac Disease (past due for follow up on gastroenterology), exercise induced asthma (managed via PRN Albuterol- needs a refill today). Has concerns regarding symptoms of an upper respiratory infection that she has been fighting for the past 10 days with no improvement. States she feels congestion in her sinuses with nasal drainage, a productive cough, and shortness of breath with wheezing. Denies known fevers. Has not tested for flu or COVID-19. Would also like to discuss frustrations with difficulty losing weight and irregular menstrual cycles. States she has not had a menstrual cycle for the past couple of months. States her has had a vasectomy and she took a home test that was -4 days ago. Used to follow-up with and [facility], Dr. Huber, but has not seen him in several years. Has also been experiencing right upper abdominal pain with associated nausea-especially with eating. Health Maintenance: Declines screening for HIV and hepatitis C. States she was vaccinated for measles mumps and rubella as a child. States she had chickenpox as a child. Uncertain if she has been vaccinated for hepatitis B-unable to find patient in [facility]. Declines a pneumococcal vaccination. Declines to be vaccinated for COVID-19. Tdap is current: 04/25/2015. Revie (more content not included)... [facility] Progress Note Patient verified by last name and date of . [facility] 10-16-2024 36 Message released to patient as written. Patient's further questions if applicable: Expressed understanding, no further questions. Were all questions from office addressed or relayed to the patient from encounter: Yes [facility] 36 Lm for patient to ca ll the office back, please relay providers message. [facility] 3610-13-2024 36 Let her know that teresa lacy did not have sleep apnea nor did she have periodic limb movements. Remind her that her appt is 11/29 [facility] 36on 10-11-2024 36 Name of caller: Darwin stevie Contact phone number: [phone] Relationship to Patient: patient Provider: Dr. Concepcion Practice: [facility] [place] Chief Complaint/Reason for Call: Hemant states that she would like to receive a call back with an update on her sleep study results from 10/06/24. Please advise. Best time of day caller can be reached: Any Patient advised that office/PCP has 24-48 business hours to return their call: Yes Normal [facility] 36on 09-20-2024 36 Faxed auth request carmen Camilo along with records for cpt code [id number]. Normal [facility] 36on 09-19-2024 36 Hello, This patient is scheduled for 10/06/24 at [facility] for PSG sleep study. Patient has [place] Medicaid auth will be required for cpt code 86101 through [facility]. Please submit auth if not has not been done yet. Thank you [facility] Sleep scheduling department Normal [facility] Office Visiton 09-19-2024 Follow-up visit [id number] Hemant Garcia 1990 F Date Provider Department Center 09/19/2024 [id number] CONCEPCION [facility] ISSA None Family History Problem Relation Age of Onset Ovarian cancer Mother 30 Alcohol abuse Father Diabetes Father Comments: Retinopatthy, - on Insulin Prostate cancer Father Migraines Sister Migraines Sister No Known Problems Brother No Known Problems Brother Colon cancer Maternal Grandmother Cancer Maternal Grandmother Comments: brain abdomen or colon breast Breast cancer Maternal Grandmother Heart disease Paternal Grandfather Cancer Paternal Grandfather Comments: esophagus Uterine cancer Neg Hx Family Status - Relation Status Age at Mother Alive Father Alive Sister Alive Sister Alive Brother Alive Brother Alive Maternal Grandmother Maternal Grandfather Alive Paternal Grandmother Paternal Grandfather Neg Hx Level of Service:13520 [place] OFFICE/OUTPATIENT NEW MODERATE MDM 45 MINUTES Reason for Visit and Comments: New Patient [542] Headache [52] Normal [facility] Progress Noteon 09-19-2024 Progress Note [facility] HOSP ITAL [facility] NEUROSCIENCE - [place] [address] [facility] [address] Dept: [phone] Dept Loc: [phone] Iwona Concepcion MD Thank you for your kind request for a neurological consultation on this patient. CHIEF COMPLAINT: Chief Complaint Patient presents with New Patient Headache HISTORY OF PRESENT ILLNESS: The patient is a 33 y.o. person who presents with headaches since at least high school. She is having headaches 16 days per week. Right occipital and right parietal. She is sensitvie in the area of the right occipital nerve and reports that she gets a hot sensation in her upper head. Is the GUZMAN longer than four hours? Yes (Migraine) Photophobia? Yes (Migraine) Phonophobia? Yes (Migraine) Nausea/Vomiting? Yes (Migraine) Exacerbated by Movement? Yes She reports that she has vision changes in the right eye only (claims closing right eye clears up the issue) of a white spot. She reports dizziness with the headaches. (Hemicrania Continua) Autonomic Features (at least 1 of below)? (1) conjunctival injection? No (2) lacrimation? No (3) nasal congestion? No (4) rhinorrhea? No (5) ptosis? No (6) eyelid edema? Yes She feels like the right side of her face is super puffy. (New Daily Persistent GUZMAN) Clear Onset of GUZMAN Syndrome? No Persistent for >3 months? No Distinct starting point? No No prior GUZMAN history? Yes (Tension-Type GUZMAN) Mild-Moderate, Featureless? No >10 attacks per month? 30 min-7days? Bilateral? Pressing/tightening? Is the GUZMAN less than four hours? No Autonomic Features? No Cluster Headache (1 or more)? No 15 min to 180 min? No Ipsilateral conjunctival injection? No Ipsilateral Lacrimation? No Ipsilateral nasal congestion? No Ipsilateral Rhinorrhea? No Ipsilateral forehead and facial sweating? No Ipsilateral Miosis? No Ipsilateral Ptosis? No eyelid edema? No Paroxysmal Hemicrania (1 or more ipsilateral)? No (1) 2 min-30 min? No (2) conjunctival injection? No (3) lacrimation? No (4) nasal congestion? No (5) rhinorrhea? No (6) eyelid edema? No Short-lasting Unilateral Neuralgiform GUZMAN with Conjunctival Injection and Tearing? (1) 1 sec-600 s? No (2) conjunctival injection? No (3) lacrimation? No (4) nasal congestion? No (5) rhinorrhea? No (6) eyelid edema? No Hypnic GUZMAN? Only during sleep and causing awakening? No > 10 days per month? No > 3 months? No Age over 50? No Primary Cough GUZMAN? > 2 attacks? No Precipitated by coughing or other Valsalva maneuver? No 1 sec-2 hours? No Secondary cause ruled out? No Primary Exercise GUZMAN? > 2 attacks? No Precipitated by strenuous exercise? No Secondary cause ruled out? No Secondary causes of GUZMAN? Systemic Symptoms (mets, GCA, infection)? Fever? Sweats/Chills? Weight Loss? Secondary Diseases? HIV? Cancer? Chronic Infection? Chronic Immunosuppression? Neurological Symtoms and Signs (mass/structural lesion, stroke, hydrocephalus) Confusion? Focal neurological signs/symptoms? Diplopia? Transient visual obscurations? Pulsatile tinnitus? Onset: (RCVS, stroke, SAH, CVST, dissection, pituitary apoplexy, intracranial hypertension) Thunderclap? Older Age (mass, GCA) New onset after age 50? Progressive after age 50? Positional (CSF leak, mass, CVST, Sinusitis) Orthostatic? Recumbent? Worsens with change in position? Prior history (mass, infection)? / (CVST, eclampsia, RCVS, pituitary lesion, stroke)? Precipitated by valsalva (mass, Chiari)?Yes Cough?No Sneeze?No Bending?Yes Straining?Yes She is taking Excedrin without success 8-12 days per month. She has not been on a daily preventative. She reports that in 2019 she was prescribed Fioricet. The patient goes to bed around 11PM - 1 AM. It takes more than 30 min to fall asleep. NO TV or other device on. The patient gets up for the day at 730. The patient does not feel refreshed upon awakening. The patient estimations every hour arousals per sleep period. Spontaneously wakes up. She will get up and smoke a cigarette. Snoring? Yes Tired? (Tired, Fatigued, or Sleepy during the daytime) Yes Observed? (Stop Breathing or Choking/Gasping during your sleep) Yes Pressure? (High blood pressure meds?) No Body Mass Index is 28 or greater?Yes Age greater than 50?No Neck size (Men >17 in, Women >16 in)Yes Gender Male?No STOP BANG score of 5. Past Medical History: has a past medical history of Anxiety, Asthma, Celiac disease, Family history of diabetes mellitus in father (06/15/2018), Family history of ovarian cancer (06/15/2018), Family history of rheumatoid arthritis, History of kidney stones, History of migraine (2004), and Smoker. Past Surgical History: has a past surgical history that includes Salpingectomy (Right, 2019) and section (2019). Medications: Current Outpatient (more content not included)... Normal [facility] Progress Noteon 09-15-2024 Progress Note Chart reviewed of ED follow up Seen in [facility] ED on 09/14/24 Reason: Headache Discharge instructions: PATIENT REFERRED TO: [facility] [address] [facility] [place] [address] Patient has appointment scheduled with Earline Concepcion on 09/19/24.. Normal [facility] 37on 09-14-2024 37 To ER now with wheelchair by my staff [facility] APTTon 09-14-2024 aPTT Coag (Bld) [Time] 26.2 s Normal 20.0-30.5 [facility] Comment on above: Result Comment: GATITO Kim COMMENTS: NOTE: The therapeutic time for Heparin anticoagulation, based on Xa activity inhibition, is an APTT of 46-80 seconds. Performed By: #### L [id number], [id number] ####Freelance Web Designer: CONCHA YOUNG ([id number])[facility] (CGTraderRLAB)[address] [place] [address] BASIC METABOLIC PANELon Anion gap [Moles/Vol] 4 mmol/L Normal 3-13 [facility] Comment on above: Performed By: #### L [id number] #### Freelance Web Designer: CONCHA YOUNG ([id number]) [facility] (SWRLAB) [address] [place] [address] Calcium [Mass/Vol] 9.5 mg/dL Normal 8.4-10.2 [facility] Comment on above: Performed By: #### L [id number] #### Freelance Web Designer: CONCHA YOUNG ([id number]) [facility] (SWRLAB) [address] [place] [address] [place] Chloride [Moles/Vol] 105 mmol/L Normal 98-107 [facility] Comment on above: Performed By: #### L [id number] #### Freelance Web Designer: CONCHA YOUNG ([id number]) [facility] PELLETIER RITTMAN (SWRLAB) [address] [place] [address] [place] CO2 [Moles/Vol] 29 mmol/L Normal 22-29 [facility] Comment on above: Performed By: #### L [id number] #### Freelance Web Designer: CONCHA YOUNG ([id number]) [facility] PELLETIER RITTMAN (SWRLAB) [address] [place] [address] [place] Creatinine [Mass/Vol] 0.98 mg/dL Normal 0.57-1.11 [facility] Comment on above: Performed By: #### L [id number] #### Freelance Web Designer: CONCHA YOUNG ([id number]) [facility] (SWRLAB) [address] [place] [address] [place] GLOMERULAR FILTRATION RATE ML/MIN/1.73 SQ M.PREDICTED 79.3 mL/min/1.73m*2 Normal >60.0 [facility] Comment on above: Result Comment: Calc ulation based on the Chronic Kidney Disease Epidemiology Collaboration (CKD-EPI) equation refit without adjustment for race Performed By: #### L [id number] #### Freelance Web Designer: CONCHA YOUNG ([id number]) [facility] PELLETIER RITTMAN (SWRLAB) [address] [place] [address] [place] Glucose [Mass/Vol] 82 mg/dL Normal 74-100 [facility] Comment on above: Performed By: #### L [id number] #### Freelance Web Designer: CONCHA YOUNG ([id number]) [facility] (SWRLAB) [address] [place] [address] [place] Potassium [Moles/Vol] 4.2 mmol/L Normal 3.5-5.1 [facility] Comment on above: Result Comment: [facility] potassium values may be up to 0.5 mmol/L lower than serum values. Performed By: #### L [id number] #### Freelance Web Designer: CONCHA YOUNG ([id number]) [facility] (SWRLAB) [address] Sodium [Moles/Vol] 138 mmol/L Normal 136-145 [facility] Comment on above: Performed By: #### L [id number] #### Freelance Web Designer: CONCHA YOUNG ([id number]) [facility] (SWRLAB) [address] Urea nitrogen [Mass/Vol] 10 mg/dL Normal 8-21 [facility] Comment on above: Performed By: #### L [id number] #### Freelance Web Designer: CONCHA YOUNG ([id number]) [facility] JOSHTMAN (SWRLAB) [address] [place] [address] Basic metabolic 1998 panelon 09-14-2024 Anion gap [Moles/Vol] 4 mmol/L 3 - 13 mmol/L [facility] Calcium [Mass/Vol] 9.5 mg/dL 8.4 - 10. 2 mg/dL [facility] Chloride [Moles/Vol] 105 mmol/L 98 - 10 7 mmol/L [facility] CO2 [Moles/Vol] 29 mmol/L 22 - 29 mmol/L [facility] Creatinine [Mass/Vol] 0.98 mg/dL 0.57 - 1.11 mg/dL [facility] GFR/1.73 sq M.predicted (S/P/Bld) [Vol rate/Area] 79.3 mL/min - PINF [facility] Comment on above: Calculation based on the Chronic Kidney Disease Epidemiology Collaboration (CKD-EPI) equation refit without adjustment for race Glucose [Mass/Vol] 82 mg/dL 74 - 100 mg/dL [facility] Interpretation and review of laboratory results Normal [facility] Potassium [Moles/Vol] 4.2 mmol/L 3.5 - 5.1 mmol/L [facility] Comment on above: Plasma potassium prerna ues may be up to 0.5 mmol/L lower than serum values. Sodium [Moles/Vol] 138 mmol/L 136 - 145 mmol/L [facility] Urea nitrogen [Mass/Vol] 10 mg/dL 8 - 21 mg/dL [facility] CBC W Auto Differential pane l (Bld)on 09-14-2024 Basophils (Bld) [#/Vol] 0.1 10*3/uL 0.0 - 0.2 10*3/uL [facility] Basophils/100 WBC (Bld) 0.5 % 0.0 - 2.0 % [facility] Eosinophils (Bld) [#/Vol] 0.3 10*3/uL 0.0 - 0.5 10*3/uL [facility] Eosinophils/100 WBC (Bld) 2.5 % 0.0 - 6.0 % [facility] Erythrocyte distribution width (RBC) [Ratio] 13.6 % 11.5 - 15.0 % [facility] Hematocrit (Bld) [Volume fraction] 38.6 % 35.0 - 47.0 % [facility] Hemoglobin (Bld) [Mass/Vol] 12.9 g/dL 11.7 - 16.0 g/dL [facility] Immature granulocytes (Bld) [#/Vol] 0.1 10*3/uL High NINF - 0.1 10*3/uL [facility] Immature granulocytes/100 WBC (Bld) 0.5 % 0.0 - 2.0 % [facility] Interpretation and review of laboratory results Abnormal [facility] Lymphocytes (Bld) [#/Vol] 2.2 10*3/uL 1.0 - 4.3 10*3/uL [facility] Lymphocytes/100 WBC (Bld) 22.6 % 15.0 - 45.0 % [facility] MCH (RBC) [Entitic mass] 26.7 pg 26. 0 - 34.0 pg [facility] MCHC (RBC) [Mass/Vol] 33.4 % 30.5 - 36.0 % [facility] MCV (RBC) [Entitic vol] 79.8 fL 77.0 - 99.0 fL [facility] Monocytes (Bld) [#/Vol] 0.5 10*3/uL 0.0 - 0.9 10*3/uL [facility] Monocytes/100 WBC (Bld) 5.5 % 5.0 - 13.0 % [facility] Neutrophils (Bld) [#/Vol] 6.8 10*3/uL 1.8 - 7.5 10*3/uL [facility] Neutrophils/100 WBC (Bld) 68.4 % 38.0 - 82.0 % [facility] Nucleated RBC/100 WBC (Bld) [Ratio] 0 % [facility] Platelet mean volume (Bld) [Entitic vol] 9.9 fL 9.0 - 12.7 fL [facility] Comment on above: MPV is a calculated measurement using platelet volume ratio Platelets (Bld) [#/Vol] 194 10*3/uL 140 - 440 10*3/uL [facility] RBC (Bld) [#/Vol] 4.84 10*6/uL 3.80 - 5.2 0 10*6/uL [facility] WBC (Bld) [#/Vol] 9.9 10*3/uL 3.6 - 10.7 10*3/uL [facility] CBC WITH AUTO DIFFERENTIALon 09-14-2024 Basophils (Bld) [#/Vol] 0.1 10*3/uL Normal 0.0-0.2 [facility] Comment on above: Performed By: #### L [id number] ####Freelance Web Designer: CONCHA YOUNG ([id number])[facility] ABDULLAHILIYAH RITTMAN (SWRLAB)[address] [place] [address] [place] Basophils/100 WBC (Bld) 0.5 % Normal 0.0-2.0 [facility] Comment on above: Performed By: #### L [id number] ####Freelance Web Designer: CONCHA YOUNG ([id number])[facility] LIYAH RITTMAN (SWRLAB)[address] [place] [address] [place] Eosinophils (Bld) [#/Vol] 0.3 10*3/uL Normal 0.0-0.5 [facility] Comment on above: Performed By: #### L [id number] ####Freelance Web Designer: CONCHA YOUNG ([id number])[facility] LIYAH RITTMAN (SWRLAB)[address] [place] [address] [place] Eosinophils/100 WBC (Bld) 2.5 % Normal 0.0-6.0 [facility] Comment on above: Performed By: #### L [id number] ####Freelance Web Designer: CONCHA [id number])JUL[facility] PELLETIER RITTMAN (SWRLAB)[address] [place] [address] Erythrocyte distribution width (RBC) [Ratio] 13.6 % Normal 11.5-15.0 [facility] Comment on above: Performed By: #### L [id number] ####Freelance Web Designer: CONCHA YOUNG ([id number])JUL[facility] PELLETIER RITTMAN (SWRLAB)[address] [place] [address] Hematocrit (Bld) [Volume fraction] 38.6 % Normal 35.0-47.0 [facility] Comment on above: Performed By: #### L [id number] ####Freelance Web Designer: CONCHA YOUNG ([id number])[facility] PELLETIER RITTMAN (SWRLAB)[address] [place] [address] Hemoglobin (Bld) [Mass/Vol] 12.9 g/dL Normal 11.7-16.0 [facility] Comment on above: Performed By: #### L [id number] ####Freelance Web Designer: CONCHA YOUNG ([id number])[facility]ALS[facility] [employer] (SWRLAB)[address] [place] [address] IMMATURE GRANS % 0.5 % Normal 0.0-2.0 [facility] Comment on above: Performed By: #### L [id number] ####Freelance Web Designer: CONCHA YOUNG ([id number])[facility] [employer] (SWRL[employer])[address] [place] [address] IMMATURE GRANS ABSOLUTE 0.1 10*3/uL High <0.1 [facility] Comment on above: Performed By: #### L [id number] ####Freelance Web Designer: CONCHA YOUNG ([id number])[facility] [employer] (SWRLAB)[address] [place] [address] Lymphocytes (Bld) [#/Vol] 2.2 10*3/uL Normal 1.0-4.3 [facility] Comment on above: Performed By: #### L [id number] ####Freelance Web Designer: CONCHA YOUNG ([id number])JULIA [employer] (SWRLAB)[address] [place] [address] [place] Lymphocytes/100 WBC (Bld) 22.6 % Normal 15.0-45.0 [facility] Comment on above: Performed By: #### L [id number] ####Freelance Web Designer: CONCHA YOUNG ([id number])JULIA [employer] (SWRLAB)[address] [place] [address] MCH (RBC) [Entitic mass] 26.7 pg Normal 26.0-34.0 [facility] Comment on above: Performed By: #### L [id number] ####Freelance Web Designer: CONCHA YOUNG ([id number])JULIA [employer] (SWRLAB)[address] [place] [address] MCHC 33.4 % Normal 30.5-36.0 [facility] Comment on above: Performed By: #### L [id number] ####Freelance Web Designer: CONCHA YOUNG ([id number])JULIA [employer] (SWRLAB)[address] [place] [address] MCV (RBC) [Entitic vol] 79.8 fL Normal 77.0-99.0 [facility] Comment on above: Performed By: #### L [id number] ####Freelance Web Designer: CONCHA YOUNG ([id number])[facility] [employer] (SWRL[employer])[address] [place] [address] [place] Monocytes (Bld) [#/Vol] 0.5 10*3/uL Normal 0.0-0.9 [facility] Comment on above: Performed By: #### L [id number] ####Freelance Web Designer: CONCHA YOUNG ([id number])JULIA [employer] (SWRLAB)[address] [place] [address] [place] Monocytes/100 WBC (Bld) 5.5 % Normal 5.0-13.0 [facility] Comment on above: Performed By: #### L [id number] ####Freelance Web Designer: CONCHA YOUNG ([id number])JULIA [employer] (SWRLAB)[address] [place] [address] [place] NEUTROPHILS ABSOLUTE 6.8 10*3/uL Normal 1.8-7.5 [facility] Comment on above: Performed By: #### L [id number] ####Freelance Web Designer: CONCHA YOUNG ([id number])[facility] [employer] (SWRLAB)[address] Neutrophils/100 WBC (Bld) 68.4 % Normal 38.0-82.0 [facility] Comment on above: Performed By: #### L [id number] ####Freelance Web Designer: CONCHA YOUNG ([id number])[facility] [employer] (SWRL[place])[address] NRBC 0.0 /100 WBCs Normal 0.0-2.0 [facility] Comment on above: Performed By: #### L [id number] ####Freelance Web Designer: CONCHA YOUNG ([id number])[facility] [employer] (SWRL[employer])[address] Platelet mean volume (Bld) [Entitic vol] 9.9 fL Normal 9.0-12.7 [facility] Comment on above: Result Comment: MPV is a calculated measurement using platelet volume ratio Performed By: #### L [id number] ####Freelance Web Designer: CONCHA YOUNG ([id number])JULIA [employer] (SWRLAB)[address] Platelets (Bld) [#/Vol] 194 10*3/uL Normal 140-440 [facility] Comment on above: Performed By: #### L [id number] ####Freelance Web Designer: CONCHA YOUNG ([id number])[facility] [employer] (SWRL[employer])[address] [place] [address] [place] RBC (Bld) [#/Vol] 4.84 10*6/uL Normal 3.80-5.20 [facility] Comment on above: Performed By: #### L [id number] ####Freelance Web Designer: CONCHA YOUNG ([id number])[facility] RITTMAN (SWRLAB)[address] [place] [address] WBC (Bld) [#/Vol] 9.9 10*3/uL Normal 3.6-10.7 [facility] Comment on above: Performed By: #### L [id number] ####Freelance Web Designer: CONCHA YOUNG ([id number])[facility] RITTMAN (SWRLAB)[address] [place] [address] CT HEAD WO IV CONTRASTon CT HEAD WO IV CONTRAST Patient Name: HEMANT TRISTAN : 1990 Exam Date/Time: 09/14/2024 16:24 Procedure: CT HEAD WO IV CONTRAST Ordering Provider: FOREMAN MEJGON Reason For Exam: intractable headache CT head without contrast History: Headache Technique: 3 mm axial images through the head without IV contrast Dose reduction was employed with automated exposure control. Comparison: 12/14/2019 There is no evidence of intracranial hemorrhage, extra-axial fluid collection, hydrocephalus, or acute infarct. No evidence of a mass of mass affect. The visualized portions of the paranasal sinuses and the mastoid air cells are clear. IMPRESSION: No acute findings. Report Dictated on Electronically Signed By: Yonathan Kovacs MD Electronically Signed Date/Time: 09/14/2024 4:53 PM EST 10 day headache, high blood pressure reading, photophobia, nausea, vomiting and left neck pain. Normal [facility] CT Head WO contraston 2024 No acute findings. Report Dictated on Electronically Signed By: Yonathan Kovacs MD Electronically Signed Date/Time: 09/14/2024 4:53 PM EST [facility] Patient Name: HEMANT PAREDES : 1990 Exam Date/Time: 09/14/2024 16:24 Procedure: CT HEAD WO IV CONTRAST Ordering Provider: FOREMAN MEJGON Reason For Exam: intractable headache CT head without contrast History: Headache Technique: 3 mm axial images through the head without IV contrast Dose reduction was employed with automated exposure control. Comparison: 12/14/2019 There is no evidence of intracranial hemorrhage, extra-axial fluid collection, hydrocephalus, or acute infarct. No evidence of a mass of mass affect. The visualized portions of the paranasal sinuses and the mastoid air cells are clear. [facility] Yonathan Kovacs MD - 09/14/2024 Patient Name: HEMANT GARCIA : 1990 Exam Date/Time: 09/14/2024 16:24 Procedure: CT HEAD WO IV CONTRAST Ordering Provider: FOREMAN MEJGON Reason For Exam: intractable headache CT head without contrast History: Headache Technique: 3 mm axial images through the head without IV contrast Dose reduction was employed with automated exposure control. Comparison: 12/14/2019 There is no evidence of intracranial hemorrhage, extra-axial fluid collection, hydrocephalus, or acute infarct. No evidence of a mass of mass affect. The visualized portions of the paranasal sinuses and the mastoid air cells are clear. IMPRESSION: No acute findings. Report Dictated on Electronically Signed By: Yonathan Kovacs MD Electronically Signed Date/Time: 09/14/2024 4:53 PM EST [facility] Radiology Study observation (narrative) [facility] CT Head WO contrastOrdered B y: Yonathan Kovacs on 09-14-2024 [facility] Work Phone: ED Nursing Noteon 09-14-2024 ED Nursing Note Returned from radiol ogy stating headache a little better but that wants IV removed and wants to leave. IV removed and physician aware that patient wants to just leave. Normal [facility] ED Nursing Note Pt to radiology-stat es the compazine made her feel very anxious (as was warned it could) and wants her IV out. Coached to slow breathing and try to calm self. Agreeable to going to CT Normal [facility] ED Nursing Note Was at doctor's offi ce this afternoon for 10 day headache and sent to ER for high blood pressure reading. States also with photophobia, nausea, vomiting and left neck pain. Normal [facility] ED Provider Noteon ED Provider Note EMERGENCY DEPARTMENT ENCOUNTER Pt Name: Hemant Garcia Birthdate 1990 Date of evaluation: 09/14/2024 ED Provider: Cricket Foreman DO CHIEF COMPLAINT Chief Complaint Patient presents with Headache HISTORY OF PRESENT ILLNESS (Location/Symptom, Timing/Onset, Context/Setting, Quality, Duration, Modifying Factors, Severity) Note limiting factors. I wore appropriate PPE for the entirety of this encounter. HPI Hemant Garcia is a 33 y.o. who presents to the emergency department with chief complaint of headache. Patient has a history of migraines and says that she does typically get headaches but they are relieved with Excedrin. Her last MRI in 2019 was normal and she is not on daily prophylactic medications for her migraines. States for the past 10 days has had a headache that she cannot control at home and is also experiencing blurry vision in the right eye, pressure in her head and has had about 5-6 episodes of vomiting over the past 10 days. She is experiencing pain in the left shoulder but also notes that she recently slipped in the shower and fell. No head injury at that time. Patient was at her PCPs office today for her migraines and they sent her to the ER for evaluation. Nursing Notes were reviewed. Limitations to history: None Outside historians: None REVIEW OF SYSTEMS Review of Systems Pertinent positives and negatives as per HPI. PAST MEDICAL HISTORY Past Medical History: Diagnosis Date Anxiety Asthma exercised induced Celiac disease Dr.Razik MARTINEZ Family history of diabetes mellitus in father 06/15/2018 Family history of ovarian cancer 06/15/2018 Family history of rheumatoid arthritis History of kidney stones History of migraine 2005 MRI head Smoker SURGICAL HISTORY Past Surgical History: Procedure Laterality Date SECTION (HISTORICAL) 2019 SALPINGECTOMY Right 2019 benign cyst; still has left tube CURRENT MEDICATIONS Previous Medications ALBUTEROL 108 (90 BASE) MCG/ACT INHALER Inhale. ALLERGIES Metoclopramide FAMILY HISTORY Family History Problem Relation Name Age of Onset Ovarian cancer Mother 30 Alcohol abuse Father Iris Garcia Diabetes Father Iris Garcia Retinopatthy, - on Insulin Prostate cancer Father Iris Garcia No Known Problems Sister No Known Problems Brother No Known Problems Brother Colon cancer Maternal Grandmother Cancer Maternal Grandmother brain abdomen or colon breast Breast cancer Maternal Grandmother Heart disease Paternal Grandfather Cancer Paternal Grandfather esophagus Uterine cancer Neg Hx SOCIAL HISTORY Social History Socioeconomic History Marital status: Significant Other Tobacco Use Smoking status: Light Smoker Current packs/day: 0.00 Types: Cigarettes Start date: 11/17/2003 Last attempt to quit: 04/13/2019 Years since quittin.4 Smokeless tobacco: Never Tobacco comments: Quit smokin black and milds a week - vaped THC in the past Vaping Use Vaping status: Never Used Substance and Sexual Activity Alcohol use: No Drug use: Yes Types: Marijuana Sexual activity: Defer Social History Narrative Single, engaged to Mick, SMOKER since age 16. no ETOH , 2 sons born in 2015 and 2019. Social Drivers of Health Financial Resource Strain: High Risk (04/27/2019) Received from [facility] Overall Financial Resource Strain (CARDIA) Difficulty of Paying Living Expenses: Hard Food Insecurity: Food Insecurity Present (04/27/2019) Received from [facility] Hunger Vital Sign Worried About Running Out of Food in the Last Year: Sometimes true Ran Out of Food in the Last Year: Never true Transportation Needs: No Transportation Needs (04/27/2019) Received from [facility] PRAPARE - Transportation Lack of Transportation (Medical): No Lack of Transportation (Non-Medical): No Physical Activity: Insufficiently Active (04/27/2019) Received from [facility] Exercise Vital Sign Days of Exercise per Week: 3 days Minutes of Exercise per Session: 30 min Stress: Stress Concern Present (04/27/2019) Received from [facility] [place] [facility] - Occupational Stress Questionnaire Feeling of Stress : To some extent Social Connections: Moderately Isolated (04/27/2019) [facility] Social Connection and Isolation Panel [NHANES] Frequency of Communication with Friends and Family: Twice a week Frequency of Social Gatherings with Friends and Family: Once a week Attends Protestant Services: Never Active Member of Clubs or Organizations: No Atte (more content not included)... Normal [facility] Laboratory - Coagulationon 0 09-14-2024 PT Coag (Bld) [Time] 11 s 9.0 - 1 2.0 s [facility] Panel Informationon 09-14 Interpretation and review of laboratory results Normal [facility] Office Visiton 09-14-2024 Follow-up visit [id number] Hemant Garcia 1990 F Date Provider Department Center 09/14/2024 [id number] DUFF [facility] Family History Problem Relation Age of Onset Ovarian cancer Mother 30 Alcohol abuse Father Diabetes Father Comments: Retinopatthy, - on Insulin Prostate cancer Father No Known Problems Sister No Known Problems Brother No Known Problems Brother Colon cancer Maternal Grandmother Cancer Maternal Grandmother Comments: brain abdomen or colon breast Breast cancer Maternal Grandmother Heart disease Paternal Grandfather Cancer Paternal Grandfather Comments: esophagus Uterine cancer Neg Hx Family Status - Relation Status Age at Mother Alive Father Alive Sister Alive Sister Alive Brother Alive Brother Alive Maternal Grandmother Maternal Grandfather Alive Paternal Grandmother Paternal Grandfather Neg Hx Level of Service:46581 [place] OFFICE/OUTPATIENT ESTABLISHED LOW MDM 20 MIN Reason for Visit and Comments: Migraine [091934] - X11 days Blurred Vision [451801] Vomiting [120] Normal [facility] PROTHROMBIN TIMEon INR Coag (PPP) [Relative time] 1.0 {INR} Normal 0.9-1.1 [facility] Comment on above: Result Comment: Raul mmended Anticoagulant Therapy: SEE BELOW ----- INR of 2.0 - 3.0 : - Prophylaxis of Venous Thrombosis (high-risk surgery) - Treatment of Venous Thrombosis - Treatment of Pulmonary Embolism (Includes tissue heart valves, Acute Myocardial Infarction to prevent systemic embolism, Valvular Heart Disease, and Atrial Fibrillation) ----- INR of 2.5 - 3.5 : - Mechanical Prosthetic Valves (high risk) - If oral anticoagulant therapy is used to prevent Myocardial Infarction Performed By: #### L [id number], [id number] ####Freelance Web Designer: CONCHA YOUNG ([id number])[facility] DARYLVIRGILIO (SWRLAB)[address] [place] [address] PT Coag (PPP) [Time] 11.0 s Normal 9.0-12.0 [facility] Comment on above: Performed By: #### Koby [id number], [id number] ####Freelance Web Designer: CONCHA YOUNG ([id number])[facility] (SWRLAB)[address] [place] [address] [place] PT Coag (Bld) [Time]on 09-14 INR Coag (PPP) [Relative time] 1 {INR} 0.9 - 1.1 [facility] Comment on above: Recommended Anticoag ulant Therapy: SEE BELOW ----- INR of 2.0 - 3.0 : - Prophylaxis of Venous Thrombosis (high-risk surgery) - Treatment of Venous Thrombosis - Treatment of Pulmonary Embolism (Includes tissue heart valves, Acute Myocardial Infarction to prevent systemic embolism, Valvular Heart Disease, and Atrial Fibrillation) ----- INR of 2.5 - 3.5 : - Mechanical Prosthetic Valves (high risk) - If oral anticoagulant therapy is used to prevent Myocardial Infarction Progress Noteon 09-14-2024 Progress Note [facility] - [address] [facility] [id number] Visit type: Established Patient Reason for Visit: Migraine (X11 days ), Blurred Vision, and Vomiting Assessment / Plan: Hemant was seen today for migraine, blurred vision and vomiting. Diagnoses and all orders for this visit: Other migraine with status migrainosus, intractable (Primary) Comments: Intractable, to ER Nausea and vomiting, unspecified vomiting type Elevated blood pressure reading without diagnosis of hypertension Some nuchal signs, to ER for urgent evaluation including CT imaging. Did discuss case with [facility] ER attending Subjective: Patient ID: Hemant Garcia is a 33 y.o. female. HPI patient with a history of migraines for many years has had 2 days of intense right-sided headache that radiates to the neck. Accompanied by nausea and vomiting. She does state yesterday she felt a peculiar pop in her head. She has blurred vision. No scotomas or unilateral numbness of the face arm or legs. History of migraines for at least 15 years. This seems similar but worse. No recent fever rhinorrhea or purulent phlegm. Presently on no meds. Had respond to some type of triptan quite a few years ago. MRI imaging in 2019 unremarkable except for sinus changes. Review of Systems is a smoker. Does not feel particularly ill regards to abdominal pain and has had no diarrhea. No cough or congestion. No chest pain or palpitations. No history of hypertension. Allergies Allergen Reactions Metoclopramide Anxiety Other reaction(s): Other: See Comments Anxiety attack Current Outpatient Medications on File Prior to Visit Medication Sig Dispense Refill albuterol 108 (90 Base) MCG/ACT inhaler Inhale. [DISCONTINUED] predniSONE (Deltasone) 20 MG tablet Take 3 tablets daily for 5 days, then 2 tablets daily for 5 days, then 1 tablet daily for 5 days. 30 tablet 0 No current facility-administered medications on file prior to visit. Patient Active Problem List Diagnosis Inflammatory arthritis History of migraine History of renal stone Smoker Family history of diabetes mellitus in father Family history of ovarian cancer History of pneumonia Hilar adenopathy Leukocytosis Splenomegaly Obesity in Acute cystitis without hematuria Adnexal mass Non-intractable cyclical vomiting with nausea delivery delivered Back pain affecting in third trimester Bacterial vaginosis History of pre-eclampsia in prior , currently in first trimester Family history of cardiac arrhythmia Pap smear of cervix with ASCUS, cannot exclude HGSIL RLQ abdominal pain Cystic fibrosis carrier, antepartum Vulvar abscess Abnormal genetic test during HRP (high risk ) Anxiety Threatened premature labor in third trimester Social History Tobacco Use Smoking status: Light Smoker Current packs/day: 0.00 Types: Cigarettes Start date: 11/17/2003 Last attempt to quit: 04/13/2019 Years since quittin.4 Smokeless tobacco: Never Tobacco comments: Quit smokin black and milds a week - vaped THC in the past Substance Use Topics Alcohol use: No Past Surgical History: Procedure Laterality Date SECTION (HISTORICAL) 2019 SALPINGECTOMY Right 2019 benign cyst; still has left tube Family History Problem Relation Name Age of Onset Ovarian cancer Mother 30 Alcohol abuse Father Iris Garcia Diabetes Father Iris Garcia Retinopatthy, - on Insulin Prostate cancer Father Iris Garcia No Known Problems Sister No Known Problems Brother No Known Problems Brother Colon cancer Maternal Grandmother Cancer Maternal Grandmother brain abdomen or colon breast Breast cancer Maternal Grandmother Heart disease Paternal Grandfather Cancer Paternal Grandfather esophagus Uterine cancer Neg Hx Objective: BP (!) 152/84 Pulse 72 Temp 36.3 ?C (97.3 ?F) (Temporal) Ht 5' 8 (1.727 m) Wt (!) 336 lb 12.8 oz (153 kg) SpO2 98% BMI 51.21 kg/m? Physical Exam she is pleasant and alert and oriented. Pupils equal. Extraocular muscles are intact. Sharp funduscopic exam. All cranial nerves are normal. Rapid alternating movements are normal. No Babinski or clonus. Reflexes physiologic. Gait is stable. Normal cerebellar testing. However has positive Kernig's sign and Brudzinski's Kernig's Normal eardrums and oropharynx. No neck masses or adenopathy. Heart is regular without murmurs. Lungs are clear. Abdomen soft nontender good bowel sounds. No hepatosplenomegaly or masses. Recheck blood pressure 152/84. Normal [facility] aPTT Coag (Bld) [Time]on aPTT Coag (PPP) [Time] 26.2 s 20.0 - 30.5 s [facility] NOTE: The therapeuti c time for Heparin anticoagulation, based on Xa activity inhibition, is an APTT of 46-80 seconds. [facility] [employer] 36on 09-13-2024 36 S: Patient spoke nelson RUSH regarding dizziness, vomiting, migraine B: Onset of symptoms/concern 9 days A: Pt endorses dizziness, vomiting, migraine for the last 9 days. Pt states symptoms unchanged for 9 days, requesting appointment to be scheduled. R: Pt states unable to be seen today, working. Pt scheduled 09/14/24. No further needs at this time. Patient instructed to call back with new or worsening symptoms. Reason for Disposition Patient wants to be seen Protocols used: [id number] X[facility] FOREARM 2 VIEWS RIGHTon 1 XR FOREARM 2 VIEWS RIGHT ORIGINAL EXAMINATION: TWO XRAY VIEWS OF THE RIGHT [id number]/05/2023 7:44 pm COMPARISON: Hand x-ray same day HISTORY: ORDERING SYSTEM PROVIDED HISTORY: Reason for Exam: pain FINDINGS: No acute fracture or dislocation. No obvious soft tissue abnormality. No radiopaque foreign body. IMPRESSION: No acute osseous abnormality identified. I have personally reviewed the images of this examination and agree with the resident's finding and interpretation. Interpreted by: Farheen Harrison MD Preliminary Report By: Galo Nielson Electronically signed By Farheen Harrison MD Dictated Date: 06/05/2023 7:48:22 PM Prelim Date: 06/05/2023 7:49:28 PM Sign Date: 06/05/2023 8:01:16 PM Ordering Provider: ENRICO HAJI [facility]) [facility] XR HAND MINIMUM 3 VIEWS RIGHT ORIGINAL EXAMINATION: THREE XRAY VIEWS OF THE RIGHT HAND06/05/2023 7:43 pm COMPARISON: None HISTORY: ORDERING SYSTEM PROVIDED HISTORY: Reason for Exam: Right hand pain for 5 days. No known injury. FINDINGS: No acute fracture or dislocation. No significant soft tissue abnormality. No radiopaque foreign body. IMPRESSION: No acute osseous abnormality identified. I have personally reviewed the images of this examination and agree with the resident's finding and interpretation. Interpreted by: Farheen Harrison MD Preliminary Report By: Galo Nielson Electronically signed By Farheen Harrison MD Dictated Date: 06/05/2023 7:46:40 PM Prelim Date: 06/05/2023 7:48:13 PM Sign Date: 06/05/2023 8:00:54 PM Ordering Provider: ENRICO HAJI [facility]) XR CHEST 2 VIEWSon 3 XR CHEST 2 VIEWS ORIGINAL EXAMINATION: TWO XRAY VIEWS OF THE CHEST 03/05/2023 8:51 pm COMPARISON: 05/18/2018 HISTORY: ORDERING SYSTEM PROVIDED HISTORY: Reason for Exam: productive cough x 3 weeks FINDINGS: The cardiomediastinal silhouette appears normal. There is no focal consolidation. There is no pulmonary edema. There is no evidence of pleural effusion. There is no evidence of pneumothorax. No acute fracture is identified. IMPRESSION: No acute abnormality is identified. Interpreted by: David Loyola Preliminary Report By: David Loyola Electronically signed By David Loyola Dictated Date: 03/05/2023 9:19:14 PM Prelim Date: 03/05/2023 9:19:52 PM Sign Date: 03/05/2023 9:19:52 PM Ordering Provider: ENRICO HAJI [facility] [place] EMERGENCY DEPARTMENTon 11-21 EMERGENCY DEPARTMENT [address] [address] HEALTH INFORMATION MANAGEMENT EMERGENCY DEPARTMENT : [phone] Signed Patient: HEMANT GARCIA Acct:[id number] MRUN: [id number] : 1990 Sex: F Loc: ED ADM Date: Room/Bed: DISC Date: ____ History of Present Illness - General Chief Complaint: Cardiac complaints Stated Complaint: HEART PALPITATIONS Symptom onset: nausea and vomiting since 0600, chest pain on way to ED Time Seen by Provider: 11/20/22 20:26 Source: Patient, Family Mode of Transport: Ambulatory - History of Present Illness Initial Comments: Patient has a history of vertigo. She says she has been dizzy with a sense of spinning all day today. This is caused her to vomit all day also. Patient has been feeling heart palpitations with this. She feels like her heart is has a very hard beat every once while. She denies any chest pain to me but told the nurse she had some chest discomfort on the way to the hospital. She denies any fevers or abdominal pain. No diarrhea. MD Complaint: Complains of: dizziness Onset/Timin -: hour(s) Timing: sudden onset, waxing/waning Description: sense of movement, room spinning History of Trauma: No Severity: moderate Improves With: Complains of: remaining still, rest Worsens With: Complains of: movement, position Associated Symptoms: Complains of: chest pain, loss of appetite, nausea, vomiting. Denies: fever/chills, shortness of breath, weakness, GI bleed Review of System - Constitutional Constitutional: Present: Well developed, Well nourished, Non-toxic - Nose,Throat,Mouth Nose (ROS): Absent: pain Throat: Absent: pain, swelling, discharge Mouth: Absent: pain, swelling - Respiratory Respiratory: Absent: cough, short of breath, wheezing - CV Cardiology: Present: palpitations. Absent: chest pain, edema - GI Gastrointestinal/Abdomin al: Present: nausea, vomiting. Absent: abdominal pain, diarrhea - Genitourinary Symptoms: Absent: dysuria - Neuro Neurological: Absent: headache, weakness - Muskuloskeletal Musculoskeletal: Absent: back pain, joint pain, joint swelling - Integumentary Skin: Absent: lesions, rash - Allergic/Immunologic Immunological/Allergic: Present: no symptoms reported - Hematologic Hematologic/Lymphatic: Absent: easy bleeding, easy bruising, swollen glands - Endocrine Endocrine: Present: no symptoms reported - Psychiatric Psychiatric: Present: Normal Affect, Normal Mood. Absent: Depressed - All Others/Exceptions All Other Systems: Reviewed and Negative Except Where Noted in Documentation ED PMH/Social HX/Family HX - Respiratory Hx Respiratory Disorders: No - Cardiovascular Hx Cardiac Disorders: No - Neurological Hx Neurological Disorder: No - Gastrointestinal Hx Gastrointestinal Disorders: Yes PMH--Gastrointestinal: Celiac Disease - Musculoskeletal PMH--Musculoskeletal: Rheumatoid Arthritis - Reproductive ?: No - HEENT Hx Ear, Nose Throat Disorders: No - Social History Able to Read: Yes Able to Write: Yes Smoking Status: Light Smoker (<10 cig/day) Hx Chewing Tobacco Use: No Alcohol Use: Never Any recreational drug use reported?: No Feels Threatened In Home Environment: No Feels Threatened In a Relationship: No - [place]-Suicide Severity Rating Scale 1) Wish to be :: No 2) Suicidal Thoughts:: No 6) Suicidal Behavior Question (A): LIFETIME: No 6) Suicidal Behavior Question (B): PAST 3 MONTHS: No General Exam - General Limitations: Complains of: no limitations Constitutional: Present: no symptoms reported - Head Head exam: Present: atraumatic, normocephalic - Eye Eye exam: Present: normal apperance, EOMI Pupils: Present: PERRL - ENT ENT exam: Present: normal orophraynx, mucous membranes moist, Posterior Pharynx Non-erethemetous - Neck Neck exam: Present: full ROM, Supple. Absent: tenderness, meningismus - Respiratory Respiratory exam: Present: lungs clear and equal bilaterally. Absent: respiratory distress, decreased breath sounds - Cardiovascular Cardiovascular Exam: Present: regular rate, normal rhythm - GI/Abdominal GI/Abdominal exam: Present: soft, non tender - Extremities Exam Extremities exam: Present: normal inspection, neurovascularly intact, full ROM - Back Exam Back exam: Present: normal inspection, full ROM - Neurological Exam Neurological exam: Present: alert, oriented X3 - Psychiatric Psychiatric exam: Present: normal affect - Skin Skin Color: Present: Normal, [place] Skin exam: Present: warm, dry, intact - Vital Signs Vital Signs 11/20/22 11/20/22 20:16 22:36 Temperature 97.4 F Pulse Rate [ 95 89 Pulse Ox] Respiratory 22 H (more content not included)... Normal [facility] High Sensitivity TNIon 11-21 Abs Change hsTnI 0 ng/L Normal [facility] Comment on above: Performed By: #### H STNI #### [address] [address] [place] % hsTnI 0 % Normal [facility] Comment on above: Performed By: #### H STNI #### [address] [place] [address] High Sensitivity TNI 4 ng/L Normal 0-51 [facility] Comment on above: Result Comment: Inte rpretation comment: High-sensitivity troponin I (hsTnI) assay can reliably detect low troponin concentrations relative to conventional troponin assays. It is the preferred marker of myocardial necrosis as recommended by the Fourth [place] Definition of Myocardial Infarction Guidelines. The diagnosis of acute myocardial infarction (AMI) is made based on a rise or fall of troponin with at least one measurement exceeding the laboratory's upper limit of normal (indicating myocardial injury), in the context of reasonable suspicion for coronary ischemia (e.g. typical symptoms, changes on ECG, evidence for loss of myocardial infarction or demonstration of obstructive coronary artery disease). Note: Although abnormal hsTnI values reflect injury to myocardial cells, an elevated hsTnI does not indicate the cause of injury (i.e. ischemia versus non-ischemic disease). In some cases, myocardial injury is chronic and relatively stable such that hsTnI values remain elevated but do not change substantially over hours to days (examples include chronic kidney disease, heart failure or advanced patient age). When determining whether there has been a significant rise or fall of troponin on serial sampling, absolute change in troponin concentration has greater diagnostic accuracy for AMI then relative change criteria. A change of >7 ng/L over a 2-hour interval or a change of >10 ng/L over a 3-hour interval is suggested as a significant change. If the initial hsTnI is below or at the 99th percentile upper reference limit, a 50% change from the baseline is considered significant. If the initial hsTnI is above the 99th percentile upper reference limit, a 20% change from the baseline value is considered significant. Performed By: #### H STNI #### [place] [address] ALT (SGPT) ser/plasOrdered B y: NEGRO GARBER on 11-20-2022 ALT [Catalytic activity/Vol] 33 U/L [facility] Absolute immature granulocyt e countOrdered By: NEGRO GARBER on 11-20-2022 Immature granulocytes (Bld) [#/Vol] 0.01 10*3/uL 0.00-0.10 [facility] Absolute lymphocyte countOrd ered By: NEGRO GARBER on 11-20-2022 Lymphocytes Auto (Unsp spec) [#/Vol] 0.70 10*3/uL 1.30-2.90 [facility] Basophils Auto (Bld) [#/Vol] Ordered By: NEGRO GARBER on 11-20-2022 Basophils (Bld) [#/Vol] 0.01 10*3/uL 0.00-0.10 [facility] Blood absolute eosinophil co untOrdered By: NEGRO GRABER on 11-20-2022 Eosinophils (Bld) [#/Vol] 0.10 10*3/uL 0.00-0.20 [facility] Blood basophils/100 leukocyt esOrdered By: NEGRO GARBER on 11-20-2022 Basophils/100 WBC (Bld) 0.1 % 0.2-1.0 [facility] Blood total protein measurem entOrdered By: NEGRO GARBER on 11-20-2022 Protein [Mass/Vol] 7.5 g/dL 6.1-8.[address] [facility] CBC w/Auto Differentialon Basophils Abs. # 0.01 K/uL Normal 0.00-0.10 [facility] Comment on above: Performed By: #### C BCS #### [place] [address] Basophils/100 WBC (Bld) 0.1 % Low 0.2-1.0 [facility] Comment on above: Performed By: #### C BCS #### [address] [place] [address] Eosinophils (Bld) [#/Vol] 0.10 10*3/uL Normal 0.00-0.20 [facility] Comment on above: Performed By: #### C BCS #### [address] [address] Eosinophils/100 WBC (Bld) 0.7 % Low 0.9-2.9 [facility] Comment on above: Performed By: #### C BCS #### [place] [address] Erythrocyte distribution width (RBC) [Ratio] 13.5 % Normal 11.5-14.5 [facility] Comment on above: Performed By: #### C BCS #### [address] [place] [address] Hematocrit (Bld) [Volume fraction] 36.4 % Normal 33.4-46.0 [facility] Comment on above: Performed By: #### C BCS #### [address] [place] [address] Hemoglobin (Bld) [Mass/Vol] 12.1 g/dL Normal 11.1-13.7 [facility] Comment on above: Performed By: #### C BCS #### [address] [place] [address] Imm Grans % 0.10 % Normal 0.00-1.00 [facility] Comment on above: Performed By: #### C BCS #### [address] [place] [address] Imm Grans Absolute # 0.01 K/uL Normal 0.00-0.10 [facility] Comment on above: Performed By: #### C BCS #### [address] [place] [address] Lymphocytes (Bld) [#/Vol] 0.70 10*3/uL Low 1.30-2.90 [facility] Comment on above: Performed By: #### C BCS #### [address] [place] [address] Lymphocytes/100 WBC (Bld) 10.6 % Low 17.0-45.5 [facility] Comment on above: Performed By: #### C BCS #### [address] [place] [address] MCH (RBC) [Entitic mass] 26.4 pg Low 27.0-31.0 [facility] Comment on above: Performed By: #### C BCS #### [facility] [address] [place] [address] MCHC (RBC) [Mass/Vol] 33.2 g/dL Normal 33.0-37.[address] [facility] Comment on above: Performed By: #### C BCS #### [address] [place] [address] MCV (RBC) [Entitic vol] 79.3 fL Low 81.0-99.0 [facility] Comment on above: Performed By: #### C BCS #### [address] [place] [address] Monocytes (Bld) [#/Vol] 0.30 10*3/uL Normal 0.30-0.80 [facility] Comment on above: Performed By: #### C BCS #### [address] [place] [address] Monocytes/100 WBC (Bld) 3.9 % Low 5.5-11.7 [facility] Comment on above: Performed By: #### C BCS #### [address] [place] [address] Neutrophils Abs. # 5.64 K/uL High 2.20-4.[address] [facility] Comment on above: Performed By: #### C BCS #### [address] [place] [address] Neutrophils/100 WBC (Bld) 84.6 % High 43.0-65.0 [facility] Comment on above: Performed By: #### C BCS #### [facility] [address] [place] [address] Platelet mean volume (Bld) [Entitic vol] 10.1 fL Normal 7.4-10.4 [facility] Comment on above: Performed By: #### C BCS #### [facility] [address] [place] [address] Platelets (Bld) [#/Vol] 204 10*3/uL Normal 148-402 [facility] Comment on above: Performed By: #### C BCS #### [facility] [address] [place] [address] RBC (Bld) [#/Vol] 4.59 10*6/uL Normal 3.83-5.19 [facility] Comment on above: Performed By: #### C BCS #### [facility] [address] [place] [address] WBC (Bld) [#/Vol] 6.7 10*3/uL Normal 3.6-10.[address] [facility] Comment on above: Performed By: #### C BCS #### [facility] [address] [place] [address] Calcium measurement (mass fr action)Ordered By: NEGRO GARBER on 11-20-2022 Calcium (Unsp spec) [Mass fraction] 8.4 mg/dL 8.2-10.0 [facility] Comprehensive Metabolic Pane mike 11-20-2022 Albumin [Mass/Vol] 3.6 g/dL Normal 3.4-5.[address] [facility] Comment on above: Performed By: #### C MP #### [facility] [address] [place] [address] Albumin/Globulin [Mass ratio] 0.9 {ratio} Low 1.1-2.5 [facility] Comment on above: Performed By: #### C MP #### [facility] [address] [place] [address] ALP [Catalytic activity/Vol] 102 U/L Normal 54-112 [facility] Comment on above: Performed By: #### C MP #### [facility] [address] [place] [address] ALT [Catalytic activity/Vol] 33 U/L Normal 13-66 [facility] Comment on above: Performed By: #### C MP #### [address] [place] [address] Anion gap [Moles/Vol] 14.4 mmol/L Normal 8.0-16.0 [facility] Comment on above: Performed By: #### C MP #### [address] [place] [address] AST [Catalytic activity/Vol] 22 U/L Normal 3-39 [facility] Comment on above: Performed By: #### C MP #### [address] [place] [address] Bilirubin [Mass/Vol] 0.50 mg/dL Normal 0.00-0.99 [facility] Comment on above: Performed By: #### C MP #### [address] [place] [address] Calcium [Mass/Vol] 8.4 mg/dL Normal 8.2-10.[address] [facility] Comment on above: Performed By: #### C MP #### [address] [place] [address] Chloride [Moles/Vol] 105 mmol/L Normal 94-110 [facility] Comment on above: Performed By: #### C MP #### [address] [place] [address] CO2 [Moles/Vol] 26 mmol/L Normal 21-34 [facility] Comment on above: Performed By: #### C MP #### [facility] [address] [place] [address] Creatinine [Mass/Vol] 0.95 mg/dL Normal 0.51-0.[address] [facility] Comment on above: Performed By: #### C MP #### [facility] [address] [place] [address] EGFR Other Races >60 Normal >60 [facility] Comment on above: Performed By: #### C MP #### [facility] [address] [place] [address] GFR/1.73 sq M.predicted among blacks MDRD (S/P/Bld) [Vol rate/Area] mL/min/{1.73_m2} Normal >60 [facility] Comment on above: Result Comment: [employer] amy Kidney Disease less than 60 mL/min/1.73 m2 Kidney Failure less than 15 mL/min/1.73 m2 Average estimated GFR by age: 30-39 years 107 mL/min/1.73 m2 Performed By: #### C MP #### [facility] [address] [place] [address] Globulin (S) [Mass/Vol] 3.9 g/dL Normal 1.5-4.5 [facility] Comment on above: Performed By: #### C MP #### [facility] [address] [place] [address] Glucose [Mass/Vol] 102 mg/dL High 65-[address] [facility] Comment on above: Performed By: #### C MP #### [facility] [address] [place] [address] Potassium [Moles/Vol] 3.4 mmol/L Normal 3.3-5.[address] [facility] Comment on above: Performed By: #### C MP #### [facility] [address] [place] [address] Protein [Mass/Vol] 7.5 g/dL Normal 6.1-8.[address] [facility] Comment on above: Performed By: #### C MP #### [facility] [address] [place] [address] Sodium [Moles/Vol] 142 mmol/L Normal 132-[address] [facility] Comment on above: Performed By: #### C MP #### [facility] [address] [place] [address] Urea nitrogen [Mass/Vol] 9.6 mg/dL Normal 3.2-26.9 [facility] Comment on above: Performed By: #### C MP #### [address] [place] [address] Urea nitrogen/Creatinine [Mass ratio] 10 mg/mg Normal 6-20 [facility] Comment on above: Performed By: #### C MP #### [facility] [address] [place] [address] Culture with gram stain, bod y fluidOrdered By: NEGRO GARBER on 11-20-2022 MCH (RBC) [Entitic mass] 26.4 pg 27.0-31.0 [facility] Determination of erythrocyte mean corpuscular volume (MCV)Ordered By: NEGRO GARBER on 11-20-2022 MCV (RBC) [Entitic vol] 79.3 fL 81.0-99.0 [facility] Eosinophil count as percenta ge of total leukocytesOrdered By: NEGRO GARBER on 11-20-2022 Eosinophils/100 WBC (Unsp spec) 0.7 % 0.9-2.9 [facility] Erythrocyte distribution wid th ratioOrdered By: NEGRO GARBER on 11-20-2022 Erythrocyte distribution width (RBC) [Ratio] 13.5 % 11.5-14.5 [facility] Glomerular filtration rate ( GFR) estimation/1.73 sq m using serum, plasma, or whole bOrdered By: NEGRO GARBER on 11-20-2022 GFR/1.73 sq M.predicted among blacks CKD-EPI (S/P/Bld) [Vol rate/Area] > 60 >60 [facility] Comment on above: Chronic Kidney Disea se less than 60 mL/min/1.73 [id number] Failure less than 15 mL/min/1.73 h1Inshidf estimated GFR by age:30-39 years 107 mL/min/1.73 m2 GFR/1.73 sq M.predicted among non-blacks CKD-EPI (S/P/Bld) [Vol rate/Area] > 60 >60 [facility] HCG Quanton 11-20-2022 HCG Quant <1 Normal [facility] Comment on above: Result Comment: Expe cted values for Quantitative HCG Assay: Years Range Male 19-83 0-2 mIU/mL Non- female 22-87 0-6 mIU/mL Maxium level of 5,000 to 200,000 mIU/mL is reached at 10-12wks. Levels decline slowly to 1,000-50,000 during 3rd trimester.wks. Please note reference range change Effective: 08-24-03 Performed By: #### H CGQ #### [address] [place] [address] High Sensitivity TNIon 11-20 High Sensitivity TNI 4 ng/L Normal 0-51 [facility] Comment on above: Result Comment: Inte rpretation comment: High-sensitivity troponin I (hsTnI) assay can reliably detect low troponin concentrations relative to conventional troponin assays. It is the preferred marker of myocardial necrosis as recommended by the Fourth [place] Definition of Myocardial Infarction Guidelines. The diagnosis of acute myocardial infarction (AMI) is made based on a rise or fall of troponin with at least one measurement exceeding the laboratory's upper limit of normal (indicating myocardial injury), in the context of reasonable suspicion for coronary ischemia (e.g. typical symptoms, changes on ECG, evidence for loss of myocardial infarction or demonstration of obstructive coronary artery disease). Note: Although abnormal hsTnI values reflect injury to myocardial cells, an elevated hsTnI does not indicate the cause of injury (i.e. ischemia versus non-ischemic disease). In some cases, myocardial injury is chronic and relatively stable such that hsTnI values remain elevated but do not change substantially over hours to days (examples include chronic kidney disease, heart failure or advanced patient age). When determining whether there has been a significant rise or fall of troponin on serial sampling, absolute change in troponin concentration has greater diagnostic accuracy for AMI then relative change criteria. A change of >7 ng/L over a 2-hour interval or a change of >10 ng/L over a 3-hour interval is suggested as a significant change. If the initial hsTnI is below or at the 99th percentile upper reference limit, a 50% change from the baseline is considered significant. If the initial hsTnI is above the 99th percentile upper reference limit, a 20% change from the baseline value is considered significant. Performed By: #### H STNI #### [address] [address] Immature granulocytes (Bld) [#/Vol]Ordered By: NEGRO GARBER on 11-20-2022 Immature granulocytes/100 WBC (Bld) 0.10 % 0.00-1.00 [facility] Interpretation of serum or p lasma cardiac troponin I measurement by high sensitivityOrdered By: NEGRO GARBER on 11-20-2022 Troponin I.cardiac High sensitivity method Ql [Interp] 4 ng/L 0-51 [facility] Comment on above: Interpretation comme nt:High-sensitivity troponin I (hsTnI) assay can reliably detect low troponinconcentrations relative to conventional troponin assays. It is thepreferred marker of myocardial necrosis as recommended by the FourthUniversal Definition of Myocardial Infarction Guidelines.The diagnosis of acute myocardial infarction (AMI) is made based on a riseor fall of troponin with at least one measurement exceeding the laboratory'supper limit of normal (indicating myocardial injury), in the context ofreasonable suspicion for coronary ischemia (e.g. typical symptoms, changeson ECG, evidence for loss of myocardial infarction or demonstration ofobstructive coronary artery disease).Note: Although abnormal hsTnI values reflect injury to myocardial cells, anelevated hsTnI does not indicate the cause of injury (i.e. ischemia versusnon-ischemic disease).In some cases, myocardial injury is chronic and relatively stable such thathsTnI values remain elevated but do not change substantially over hours todays (examples include chronic kidney disease, heart failure or advancedpatient age).When determining whether there has been a significant rise or fall oftroponin on serial sampling, absolute change in troponin concentration hasgreater diagnostic accuracy for AMI then relative change criteria. A changeof >7 ng/L over a 2-hour interval or a change of >10 ng/L over a 3-hourinterval is suggested as a significant change. If the initial hsTnI isbelow or at the 99th percentile upper reference limit, a 50% change from thebaseline is considered significant. If the initial hsTnI is above the 99thpercentile upper reference limit, a 20% change from the baseline value isconsidered significant. Laboratory - Hematology and Cell countsOrdered By: NERGO GARBER on 11-20-2022 Hematocrit (Bld) [Volume fraction] 36.4 % 33.4-46.0 [facility] MCHC (RBC) [Mass/Vol] 33.2 g/dL 33.0-37.[address] [facility] Platelet mean volume (Bld) [Entitic vol] 10.1 fL 7.4-10.4 [facility] Platelets (Bld) [#/Vol] 204 10*3/uL 148-402 [facility] RBC (Bld) [#/Vol] 4.59 10*6/uL 3.83-5.19 [facility] WBC (Bld) [#/Vol] 6.7 10*3/uL 3.6-10.[address] [facility] Lymphocytes/100 WBC Auto (Bl d)Ordered By: NEGRO GARBER on 11-20-2022 Lymphocytes/100 WBC (Bld) 10.6 % 17.0-45.5 [facility] Monocyte %Ordered By: NEGRO GOOD on 11-20-2022 Monocyte % 12.1 g/dL 11.1-13.7 [facility] Monocytes Auto (Bld) [#/Vol] Ordered By: NEGRO GARBER on 11-20-2022 Monocytes (Bld) [#/Vol] 0.30 10*3/uL 0.30-0.80 [facility] Monocytes/100 WBC Auto (Bld) Ordered By: NEGRO GARBER on 11-20-2022 Monocytes/100 WBC (Bld) 3.9 % 5.5-11.7 [facility] Neutrophils Auto (Bld) [#/Vo l]Ordered By: NEGRO GARBER on 11-20-2022 Neutrophils (Bld) [#/Vol] 5.64 10*3/uL 2.20-4.80 [facility] Neutrophils seg % bldOrdered By: NEGRO GARBER on 11-20-2022 Segmented neutrophils/100 WBC (Bld) 84.6 % 43.0-65.0 [facility] Potassium measurement (mass/ mass)Ordered By: NEGRO GARBER on 11-20-2022 Potassium (Unsp spec) [Mass/Mass] 3.4 mmol/L 3.3-5.1 [facility] Serum globulin measurement ( mass/volume)Ordered By: NEGRO GARBER 11-20-2022 Globulin (S) [Mass/Vol] 3.9 g/dL 1.5-4.5 [facility] Serum or plasma albumin bryson urement by bromocresol purple (BCP) dye binding method (mOrdered By: NEGRO GARBER on 11-20-2022 Albumin BCP dye [Mass/Vol] 3.6 g/dL 3.4-5.0 [facility] Serum or plasma albumin/glob ulin mass ratioOrdered By: NEGRO GARBER 11-20-2022 Albumin/Globulin [Mass ratio] 0.9 {ratio} 1.1-2.5 [facility] Serum or plasma alkaline wilmer sphatase measurement (enzymatic activity/volume)Ordered By: NEGRO GARBER on 11-20-2022 ALP [Catalytic activity/Vol] 102 U/L 54-112 [facility] Serum or plasma anion gapOrd ered By: NEGRO GARBER on 11-20-2022 Anion gap [Moles/Vol] 14.4 mmol/L 8.0-16.0 [facility] Serum or plasma aspartate am inotransferase measurement with P-5'-P (enzymatic activitOrdered By: NEGRO GARBER on 11-20-2022 AST With P-5'-P [Catalytic activity/Vol] 22 U/L 3-39 [facility] Serum or plasma bilirubin me asurement (mass/volume)Ordered By: NEGRO GARBER on 11-20-2022 Bilirubin [Mass/Vol] 0.50 mg/dL 0.00-0.99 [facility] Serum or plasma carbon dioxi de measurement (moles/volume)Ordered By: NEGRO GARBER on 11-20-2022 CO2 [Moles/Vol] 26 mmol/L 21-34 [facility] Serum or plasma chloride rick surement (moles/volume)Ordered By: NEGRO GARBER on 11-20-2022 Chloride [Moles/Vol] 105 mmol/L 94-110 [facility] Serum or plasma creatinine m easurement (mass/volume)Ordered By: NEGRO GARBER on 11-20-2022 Creatinine [Mass/Vol] 0.95 mg/dL 0.51-0.[address] [facility] Serum or plasma glucose bryson urement (mass/volume)Ordered By: NEGRO GARBER on 11-20-2022 Glucose [Mass/Vol] 102 mg/dL 65-[address] [facility] Serum or plasma human chorio amy gonadotropin (hCG) measurement (units/volume)Ordered By: NEGRO GARBER on 11-20-2022 HCG Qn m[IU]/mL [facility] Comment on above: Expected values for Quantitative HCG Assay: Years Range Male 19-83 0-2 mIU/mL Non- female 22-87 0-6 mIU/mLMaxium level of 5,000 to 200,000 mIU/mL is reached at 10-12wks.Levels decline slowly to 1,000-50,000 during 3rd trimester.wks. Please note reference range change Effective: 08-24-03 Serum or plasma sodium measu rement (moles/volume)Ordered By: NEGRO GARBER on 11-20-2022 Sodium [Moles/Vol] 142 mmol/L 132-[address] [facility] Serum or plasma urea nitroge n measurement (mass/volume)Ordered By: NEGRO GARBER on 11-20-2022 Urea nitrogen [Mass/Vol] 9.6 mg/dL 3.2-26.9 [facility] Serum or plasma urea nitroge n/creatinine mass ratioOrdered By: NEGRO GARBER on 11-20-2022 Urea nitrogen/Creatinine [Mass ratio] 10 mg/mg 6-20 [facility] Troponin I measurement by [facility] sensitive enzyme immunoassayOrdered By: NEGRO GARBER on 11-20-2022 Troponin I.cardiac High sensitivity method [Mass/Vol] 0 ng/L [facility] Troponin I.cardiac High sensitivity method [Mass/Vol] 0 % [facility] CNOVon 01-20-2021 CNOV Office Visit ([facility]) -------- HEMANT GARCIA ([id number]) 1990 F Date Time Provider Department 01/20/21 2:15 PM OCHOA GALLAGHER During your visit today, we recorded the following information about you: Ochoa Gallagher MD 01/20/2021 4:53 PM Signed GASTROENTEROLOGY PROGRESS NOTE OUTPATIENT FOLLOW UP HPI: I saw Hemant M Jose today for a follow up regarding celiac disease. Hemant Mari Garcia was last seen here by me on 09/12/2020. This is a telephone/Virtual Visit being conducted as a result of the COVID-19 pandemic. The patient has consented to this virtual interaction. Called and spoke to pt briefly and lost connection. Tried calling x 3 again but no answer. LVM. Needs to be rescheduled. PAST MEDICAL HISTORY Diagnosis Date - Asthma - Inflammatory arthritis - Migraines PAST SURGICAL HISTORY Procedure Laterality Date - PAST SURGICAL HISTORY OF 2019 with removal of cyst from right F tube Social History Tobacco Use - Smoking status: Current Every Day Smoker Packs/day: 0.50 Years: 15.00 Pack years: 7.50 Types: Cigarettes Start date: 01/31/2004 - Smokeless tobacco: Never Used - Tobacco comment: February 06, 2019 Vaping Use - Vaping Use: Never used Substance Use Topics - Alcohol use: Not Currently - Drug use: Never Family history reviewed. No history of IBD, CRC or HPB malignancy. Current Outpatient Medications Medication Sig - ferrous sulfate 325 mg (65 mg iron) tablet Take 1 tablet by mouth twice daily. - ALBUTEROL INHALATION Inhale as instructed. - chlorzoxazone (PARAFON FORTE DSC) 500 mg tablet Take 500 mg by mouth three times daily as needed. - sulfaSALAzine (AZULFIDINE) 500 mg tablet Take 2 tablets by mouth three times daily. (Patient taking differently: Take 1,000 mg by mouth three times daily. 2500 mg/day ) - SUMAtriptan (IMITREX) 50 mg tablet Take 50 mg by mouth as needed. No current facility-administered medications for this visit. ALLERGIES Allergen Reactions - Reglan [Metoclopram* Other: See Comments Anxiety attack REVIEW OF SYSTEMS GASTROINTESTINAL: SEE ABOVE URINARY: No dark urine or hematuria unless documented above CARDIOVASCULAR: No chest pain NEUROLOGICAL: No new focal neuro deficits CONSTITUTIONAL: No weight loss or fever unless documented above EYES: No scleral icterus unless documented above EARS, NOSE AND THROAT: No deformities or abnormalities RESPIRATORY: No dyspnea SKIN: No rashes other than documented above ENDOCRINE: No features of hypothyroidism other than those documented above PSYCHIATRIC: No overt elisha or psychosis HEMATOLOGIC No bruising or hemarthroses MUSCULOSKELETAL: No myalgias or bony deformities IMMUNOLOGIC: No immune deficits unless documented elsewhere PHYSICAL EXAMINATION: [facility] 07/21/2020 GENERAL APPEARANCE: Well appearing, alert, in no acute distress, well-hydrated, well nourished. SKIN: Skin color, texture, turgor normal, no suspicious rashes or lesions. EYES: Anicteric sclera. Pupils are equally round and reactive to light. Extraocular movements are intact. NECK: Supple, no adenopathy; thyroid symmetric, normal size, no bruits. LUNGS: No accessory muscle use, no cyanosis, no asymmetric calf swelling, no bony deformity. HEART: Normal JVP, no significant peripheral edema, no thrill ABDOMEN: Abdomen soft, non-tender, non distended. No masses, ascites or hepatosplenomegaly. EXTREMITIES: No deformities, edema, skin discoloration, clubbing or cyanosis. NEUROLOGIC: Gait normal. Sensation and strength grossly intact. DATA: Diagnostic tests and/or endoscopic procedures reviewed for today's visit: Most recent labs Most recent imaging LABS: Hemoglobin (g/dL) Date Value 07/24/2020 11.6 HGB (g/dL) Date Value 04/01/2020 11.6 Hematocrit (%) Date Value 07/24/2020 36.5 04/01/2020 35.3 WBC Date Value 07/24/2020 10.89 k/uL 04/01/2020 7.60 thou/cmm Lab Results Component Value Date LIPASE 57 07/24/2020 TBILI 0.2 07/24/2020 CREAT 1.05 (H) 07/24/2020 INR 1.0 07/24/2020 ALB 4.1 07/24/2020 CBILI <0.2 07/24/2020 ALKPHOS 103 07/24/2020 AST 15 07/24/2020 ALT 18 07/24/2020 TPROT 6.3 07/24/2020 Plan ASSESSMENT AND PLAN: Thank you for involving me in the care of this patient. Ochoa Gallagher MD Impression: (Some elements copied from my previous notes, which have been updated where appropriate, and all reflect current medical decision making from today) Referring Provider: ALEX ORTEGA [[id number]] Allergies As of Date: 01/20/2021 Noted Allergy Reaction REGLAN (METOCLOPRAMIDE HCL) 01/19/2020 14 - Other: See Comments Comments: Anxiety attack Date Reviewed: 07/24/2020 Reviewed by: Angie RosarioRn) RADHA Mackenzie - Fully Assessed Reason for Visit: Celiac Disease [3900] Visit Diagnosis:Celiac disease [K90.0] Prescriptions as of (more content not included)... Normal [facility] ANES POSTPROC EVALon 020 ANES POSTPROC EVAL HNO ID: [id number] Author: David Cannon Service: ? Author Type: Physician Type: Anesthesia Postprocedure Evaluation Filed: 07/24/2020 5:15 PM Note Text: POST ANESTHESIA EVALUATION NOTE : 1990 Procedure Summary Date: 07/24/20 Room / Location: [facility] Anesthesia Start: 1522 Anesthesia Stop: 1541 Procedure: EGD (N/A Esophagus) Diagnosis: Celiac disease Surgeons: Ochoa Gallagher Responsible Provider: David Cannon Anesthesia Type: MAC ASA Status: 2 Anesthesia Type: MAC Last vitals Vitals Value Taken Time BP 103/57 07/24/20 1552 Temp 36.6 ?C (97.9 ?F) 07/24/20 1539 Pulse 65 07/24/20 1549 Resp 18 07/24/20 1549 SpO2 99 % 07/24/20 1552 Vitals shown include unvalidated device data. Post Anesthesia Patient Status Patient Evaluation: bedside. Anticipated Disposition: phase 2 then home. Neurological Status: aware and responsive. Pulmonary Status: breathing comfortably on room air Airway Control: returned to baseline unsupported. Cardiovascular Status: stable. Pain Management: clinically adequate Postoperative Hydration: acceptable. Intraoperative Events: no significant anesthesia events Post Operative Nausea/Vomiting Status: no significant post operative nausea or vomiting Anesthetic Observations: no significant anesthetic observations Recommendation: continue current plan of care. SIGNATURE: David Cannon MD PATIENT NAME: Hemant Garcia DATE: July 24, 2020 TIME: 5:15 PM CSN: [id number] Normal [facility] ANES PRE-OPon 07-24-2020 ANES PRE-OP HNO ID: [id number] Author: David Cannon Service: ? Author Type: Physician Type: Anesthesia Preprocedure Evaluation Filed: 07/24/2020 2:25 PM Note Text: ANESTHESIOLOGY DAY OF SURGERY NOTE : 1990 Procedure(s) (LRB): EGD (N/A) Surgeon(s): Ochoa Gallagher Estimated body mass index is 48.66 kg/m? as calculated from the following: Height as of this encounter: 172.7 cm (5' 8). Weight as of this encounter: 145.2 kg (320 lb). Most recent hematocrit and potassium results: Hematocrit 35.3 04/01/2020 Potassium 3.9 04/01/2020 Relevant Problems PULMONARY (+) Asthma Other (+) Inflammatory arthritis I - PHYSICAL EVALUATION AIRWAY Patient intubated: No. Tracheostomy tube not present Mallampati: II. Neck ROM: limited flexion and extension. Mouth opening: adequate. Short neck: no. Thick neck: no DENTAL Dental findings: teeth intact. Additional exam findings: no II - ANESTHESIA PLAN ASA Score: 2 Anesthetic Plan: MAC The patient is not a current smoker. NPO Status: adequate Monitoring plan: standard ASA. Postoperative analgesic plan: parenteral or oral opioids. Anesthetic Risks, Benefits, Alternatives, Personnel Discussed. Consent obtained from: patient. Patient / Surrogate agrees to blood products: Yes DNR status not reviewed with patient and/or family prior to surgery. Significant changes in the patient condition since the History and Physical, not otherwise documented in primary service progress note: no. Potential Anesthesia issues that may suggest increased risk of complications or contraindication to planned procedure: none. Vitals Value Taken Time BP 109/42 07/24/20 1340 Pulse 62 07/24/20 1340 Resp 20 07/24/20 1340 Temp 36.4 ?C (97.5 ?F) 07/24/20 1340 SpO2 98 % 07/24/20 1340 Facility-Administered Medications as of 07/24/2020 Medication Dose Route Frequency - lidocaine 10 mg/mL (1 %) 1-2 mg injection (XYLOCAINE) 0.1-0.2 mL INTRADERMAL PRN - lactated ringers infusion 5-30 mL/hr INTRAVENOUS CONTINUOUS Outpatient Medications as of 07/24/2020 Medication Sig - ALBUTEROL INHALATION Inhale as instructed. - meloxicam (MOBIC) 15 mg tablet Take 1 tablet by mouth once daily. - sulfaSALAzine (AZULFIDINE) 500 mg tablet Take 2 tablets by mouth three times daily. (Patient taking differently: Take 1,000 mg by mouth three times daily. 2500 mg/day ) - SUMAtriptan (IMITREX) 50 mg tablet Take 50 mg by mouth as needed. - chlorzoxazone (PARAFON FORTE DSC) 500 mg tablet Take 500 mg by mouth three times daily as needed. I have interviewed and examined the patient. I have reviewed the medical record and/or the pre-anesthesia evaluation, pertinent labs, and test results. This contains updated information obtained within 48 hours of Surgery/Procedure. SIGNATURE: David Cannon MD PATIENT NAME: Hemant Garcia DATE: July 24, 2020 TIME: 2:12 PM CSN: [id number] Normal [facility] CBC W Auto Differential pane l (Bld)on 07-24-2020 Basophils (Bld) [#/Vol] 0.05 10*3/uL Normal <0.11 [facility] Comment on above: Order Comment: Speci men Type: BLOOD SPECIMEN Performed By: #### 5 7021-8 ####[facility] [id number] [place] [address] Basophils/100 WBC (Bld) 0.5 % Normal [facility] Comment on above: Order Comment: Speci men Type: BLOOD SPECIMEN Performed By: #### 5 7021-8 ####[facility] [id number] [place] [address] Differential cell count method Nom (Bld) Auto Normal [facility] Comment on above: Order Comment: Speci men Type: BLOOD SPECIMEN Performed By: #### 5 7021-8 ####[facility] [id number] [place] [address] Eosinophils (Bld) [#/Vol] 0.19 10*3/uL Normal <0.46 [facility] Comment on above: Order Comment: Speci men Type: BLOOD SPECIMEN Performed By: #### 5 7021-8 ####[facility] [id number] [place] [address] Eosinophils/100 WBC (Bld) 1.7 % Normal [facility] Comment on above: Order Comment: Speci men Type: BLOOD SPECIMEN Performed By: #### 5 7021-8 ####[facility] [id number] [place] [address] Erythrocyte distribution width (RBC) [Ratio] 13.4 % Normal 11.5-15.0 [facility] Comment on above: Order Comment: Speci men Type: BLOOD SPECIMEN Performed By: #### 5 7021-8 ####[facility] [id number] [place] [address] Hematocrit (Bld) [Volume fraction] 36.5 % Normal 36.0-46.0 [facility] Comment on above: Order Comment: Speci men Type: BLOOD SPECIMEN Performed By: #### 5 7021-8 ####[facility] [id number] [place] [address] Hemoglobin (Bld) [Mass/Vol] 11.6 g/dL Normal 11.5-15.5 [facility] Comment on above: Order Comment: Speci men Type: BLOOD SPECIMEN Performed By: #### 5 7021-8 ####[facility]ORYCLIA [id number] [place] [address] IMMATURE GRAN % 0.4 % Normal [facility] Comment on above: Order Comment: Speci men Type: BLOOD SPECIMEN Performed By: #### 5 7021-8 ####[facility]ATORYCLIA [id number] [place] [address] IMMATURE GRAN ABS 0.04 k/uL Normal <0.10 [facility] Comment on above: Order Comment: Speci men Type: BLOOD SPECIMEN Performed By: #### 5 7021-8 ####[facility]ORATORYCLIA [id number] [place] [address] Lymphocytes (Bld) [#/Vol] 1.99 10*3/uL Normal 1.00-4.00 [facility] Comment on above: Order Comment: Speci men Type: BLOOD SPECIMEN Performed By: #### 5 7021-8 ####[facility]ATORYCLIA [id number] [place] [address] Lymphocytes/100 WBC (Bld) 18.3 % Normal [facility] Comment on above: Order Comment: Speci men Type: BLOOD SPECIMEN Performed By: #### 5 7021-8 ####[facility]ORYCLIA [id number] [place] [address] MCH (RBC) [Entitic mass] 26.1 pg Normal 26.0-34.0 [facility] Comment on above: Order Comment: Speci men Type: BLOOD SPECIMEN Performed By: #### 5 7021-8 ####[facility]ORY[facility] [id number] [place] [address] MCHC (RBC) [Mass/Vol] 31.8 g/dL Normal 30.5-36.0 [facility] Comment on above: Order Comment: Speci men Type: BLOOD SPECIMEN Performed By: #### 5 7021-8 ####[facility] [id number] [place] [address] MCV (RBC) [Entitic vol] 82.2 fL Normal 80.0-100.[address] [facility] Comment on above: Order Comment: Speci men Type: BLOOD SPECIMEN Performed By: #### 5 7021-8 ####[facility]ORYCLIA [id number] [place] [address] Monocytes (Bld) [#/Vol] 0.35 10*3/uL Normal <0.87 [facility] Comment on above: Order Comment: Speci men Type: BLOOD SPECIMEN Performed By: #### 5 7021-8 ####[facility]ORY[facility]IA [id number] [place] [address] Monocytes/100 WBC (Bld) 3.2 % Normal [facility] Comment on above: Order Comment: Speci men Type: BLOOD SPECIMEN Performed By: #### 5 7021-8 ####[facility]ORYCLIA [id number] [place] [address] Neutrophils (Bld) [#/Vol] 8.27 10*3/uL High 1.45-7.50 [facility] Comment on above: Order Comment: Speci men Type: BLOOD SPECIMEN Performed By: #### 5 7021-8 ####[facility]IA [id number] [place] [address] Neutrophils/100 WBC (Bld) 75.9 % Normal [facility] Comment on above: Order Comment: Speci men Type: BLOOD SPECIMEN Performed By: #### 5 7021-8 ####[facility]ORYCLIA [id number] [place] [address] Nucleated RBC (Bld) [#/Vol] 10*3/uL Normal <0.01 [facility] Comment on above: Order Comment: Speci men Type: BLOOD SPECIMEN Performed By: #### 5 7021-8 ####[facility]ATORYCLIA [id number] [place] [address] Nucleated RBC/100 WBC (Bld) [Ratio] 0.0 /100 WBC Normal 0.0 [facility] Comment on above: Order Comment: Speci men Type: BLOOD SPECIMEN Performed By: #### 5 7021-8 ####[facility]ORYCLIA [id number] [place] [address] Platelet mean volume (Bld) [Entitic vol] 10.9 fL Normal 9.0-12.7 [facility] Comment on above: Order Comment: Speci men Type: BLOOD SPECIMEN Performed By: #### 5 7021-8 ####[facility]ORYCLIA [id number] [place] [address] Platelets (Bld) [#/Vol] 248 10*3/uL Normal 150-400 [facility] Comment on above: Order Comment: Speci men Type: BLOOD SPECIMEN Performed By: #### 5 7021-8 ####[facility]ATORYCLIA [id number] [place] [address] RBC (Bld) [#/Vol] 4.44 10*6/uL Normal 3.90-5.20 [facility] Comment on above: Order Comment: Speci men Type: BLOOD SPECIMEN Performed By: #### 5 7021-8 ####[facility]ORYCLIA [id number] [place] [address] WBC (Bld) [#/Vol] 10.89 10*3/uL Normal 3.70-11.00 [facility] Comment on above: Order Comment: Speci men Type: BLOOD SPECIMEN Performed By: #### 5 7021-8 ####[facility]ORATORYCLIA [id number] [place] [address] CREATININE Don 07-24-2020 Creatinine [Mass/Vol] 1.05 mg/dL High 0.58-0.96 [facility] Comment on above: Order Comment: Speci men Type: BLOOD SPECIMEN Performed By: #### I GOPAL SALGADO, FERR #### [facility] CLIA [id number] [address] [place] [address] GFR/1.73 sq M.predicted MDRD (S/P/Bld) [Vol rate/Area] mL/min/{1.73_m2} Normal [facility] Comment on above: Order Comment: Speci men Type: BLOOD SPECIMEN Result Comment: >60 eGFR (Estimated GFR) Units of measure: mL/min/1.73 meters squared eGFR is derived from the reexpressed MDRD Study equation using the following parameters: serum creatinine, age, gender and race. The creatinine assay has been calibrated to be traceable to IDMS. An eGFR <60 mL/min/1.73m2 for >3 months is consistent with chronic kidney disease. Refer to KDOQI guidelines for clinical interpretation. In patients with unstable renal function, e.g. those with acute kidney injury, the eGFR may not accurately reflect actual GFR. Performed By: #### I GOPAL SALGADO, FERR #### [facility] CLIA [id number] [place] [id number] FERRITIN BLDon 07-24-2020 Ferritin [Mass/Vol] 51.8 ng/mL Normal 14.7-205.1 [facility] Comment on above: Order Comment: Speci men Type: BLOOD SPECIMEN Performed By: #### I GOPAL SALGADO, FERR #### [facility] CLIA [id number] [address] [place] [address] GLIADIN (DEAMIDATED) AB, IGA on 07-24-2020 Gliadin peptide IgA Qn (S) 20 Units High <20 [facility] Comment on above: Order Comment: Speci men Type: BLOOD SPECIMEN Result Comment: Nega tive : < 20 Units Weak Positive : 20 - 30 Units Moderate Pos to Strong Pos: >30 Units The following results were obtained with the LEPOW QUANTA Lite Gliadin IgA SHIRLEY. Gliadin IgA values obtained with different manufacturers' assay methods may not be used interchangeably. The magnitude of the reported IgA levels cannot be correlated to an endpoint titer. Performed By: #### G GABBY, 125VTD ####[facility] LABCLIA [id number] [place] [address] HCG Preg Ur Qlon 07-24-2020 HCG ( test) Ql (U) Negative Normal Negative [facility] Comment on above: Order Comment: Speci men Type: URINE SPECIMEN Result Comment: This test is intended to aid in the early detection of . Very dilute urine samples, as indicated by a low specific gravity, may not contain market survey representative levels of hCG. This test detects intact hCG only. This test does not reliably detect hCG degradation products, including free-beta subunit and beta-core fragment. Therefore, this test may show reduced reactivity in urine after 8 weeks gestation. A number of conditions other than , including trophoblastic disease and certain non-trophoblastic neoplasms cause elevated levels of hCG. As with any assay employing mouse antibodies, the possibility exists for interference by human anti-mouse antibodies (HAMA) in the specimen. The test provides a presumptive diagnosis for . Performed By: #### 2 106-3 #### [facility] CLIA [id number] [address] [place] [address] [place] HEPATIC FUNCTION PNLon 07-24 Albumin [Mass/Vol] 4.1 g/dL Normal 3.9-4.9 [facility] Comment on above: Order Comment: Speci men Type: BLOOD SPECIMEN Performed By: #### 3 016-3, 3040-3, B12, HFP ####[facility]ORATORYCLIA [id number] [place] [address] ALP [Catalytic activity/Vol] 103 U/L Normal 34-123 [facility] Comment on above: Order Comment: Speci men Type: BLOOD SPECIMEN Performed By: #### 3 016-3, 3040-3, B12, HFP ####[facility]ATORYCLIA [id number] [place] [address] ALT With P-5'-P [Catalytic activity/Vol] 18 U/L Normal 7-38 [facility] Comment on above: Order Comment: Speci men Type: BLOOD SPECIMEN Performed By: #### 3 016-3, 3040-3, B12, HFP ####[facility]ATORYCLIA [id number] [place] [address] AST With P-5'-P [Catalytic activity/Vol] 15 U/L Normal 13-35 [facility] Comment on above: Order Comment: Speci men Type: BLOOD SPECIMEN Performed By: #### 3 016-3, 3040-3, B12, HFP ####[facility] LABORATORYCLIA [id number] [place] [address] Bilirubin [Mass/Vol] 0.2 mg/dL Normal 0.2-1.3 [facility] Comment on above: Order Comment: Speci men Type: BLOOD SPECIMEN Performed By: #### 3 016-3, 3040-3, B12, HFP ####[facility]OR[facility]ORYCLIA [id number] [place] [address] Bilirubin.conjugated [Mass/Vol] mg/dL Normal <0.2 [facility] Comment on above: Order Comment: Speci men Type: BLOOD SPECIMEN Performed By: #### 3 016-3, 3040-3, B12, HFP ####[facility]ORYCLIA [id number] [place] [address] Protein [Mass/Vol] 6.3 g/dL Normal 6.3-8.0 [facility] Comment on above: Order Comment: Speci men Type: BLOOD SPECIMEN Performed By: #### 3 016-3, 3040-3, B12, HFP ####[facility]CLIA [id number] [place] [address] HISTORY PHYSICALon 0 HISTORY PHYSICAL HNO ID: [id number] Author: Rosa Maria Watson Service: Anesthesiology Author Type: Nurse Practitioner Type: HANDP Filed: 07/24/2020 2:28 PM Note Text: HISTORY AND PHYSICAL EXAMINATION Hemant Garcia 1990 SERVICE DATE: 07/24/2020 SERVICE TIME: 1:42 PM PRIMARY CARE PHYSICIAN: Alex Ortega SURGEON: Surgeon(s) and Role: * Ochoa Gallagher - Primary ANESTHESIA: Monitored Anesthesia Care DIAGNOSIS: Celiac disease [K90.0] PROCEDURE: Procedure(s): EGD (N/A) Subjective CHIEF COMPLAINT: EGD HPI: This is a 29 year old female who presents with c/o abdominal pain, pain usually LUQ, states since child has had NANDV, denies changes in bowel habits no hematochezia or melena. No prior scopes. Pt with celiac dz presents for EGD with Dr Gallagher. METS: Climb a flight of stairs or walk up a hill (5.50 METs) DURAN with more than one flight FUNCTIONAL STATUS: Independent PAST MEDICAL HISTORY Diagnosis Date - Asthma - Inflammatory arthritis - Migraines PAST SURGICAL HISTORY Procedure Laterality Date - PAST SURGICAL HISTORY OF 2019 with removal of cyst from right F tube FAMILY HISTORY Problem Relation Age of Onset - Vertigo Mother - Diabetes Father Social History Tobacco Use - Smoking status: Current Every Day Smoker Packs/day: 0.50 Years: 15.00 Pack years: 7.50 Types: Cigarettes Start date: 01/31/2004 - Smokeless tobacco: Never Used - Tobacco comment: February 06, 2019 Substance Use Topics - Alcohol use: Not Currently - Drug use: Never Prior to Admission medications as of 07/24/20 1412 Medication Sig Last Dose Taking ALBUTEROL INHALATION Inhale as instructed. Yes meloxicam (MOBIC) 15 mg tablet Take 1 tablet by mouth once daily. 07/19/2020 Yes sulfaSALAzine (AZULFIDINE) 500 mg tablet Take 2 tablets by mouth three times daily. Patient taking differently: Take 1,000 mg by mouth three times daily. 2500 mg/day Yes SUMAtriptan (IMITREX) 50 mg tablet Take 50 mg by mouth as needed. Yes chlorzoxazone (PARAFON FORTE DSC) 500 mg tablet Take 500 mg by mouth three times daily as needed. ALLERGIES Allergen Reactions - Reglan [Metoclopram* Other: See Comments Anxiety attack COMPLETE REVIEW OF SYSTEMS: GENERAL: No weight loss, malaise or fevers RESPIRATORY: Negative for cough, hemoptysis, wheezing, COPD, dyspnea or shortness of breath, +asthma Cardiac: Negative for chest pain, leg swelling, hypertension, CHF or palpitations GI: Not reviewed : hesitancy MUSCULOSKELETAL: undifferentiated spondylarthritis PSYCH: anxiety ENDOCRINE:Denies diabetes and thyroid problems NEURO: +migraines, denies seizures, tremors or stroke Heme/Onc: No hx blood clots, clotting disorders, or cancer Objective PHYSICAL EXAM: 07/19/20 1239 07/24/20 1340 BP: (!) 109/42 Pulse: 62 Resp: 20 Temp: 36.4 ?C (97.5 ?F) TempSrc: Temporal Artery SpO2: 98% Weight: (!) 145.2 kg (320 lb) Height: 172.7 cm (5' 8) Body mass index is 48.66 kg/m?. MENTAL STATUS: alert, oriented to person, place and time HEENT: Normocephalic/atraumatic , no lymphadenopathy LUNGS: Lungs clear to auscultation, Good diaphragmatic excursion CARDIAC: S1S2 RRR ABDOMEN: Soft, tender on palpation LUQ EXTREMITIES: NUNN no gross deficits no peripheral edema Diagnostic tests reviewed for today's visit: Lab Value Units Date High Low HB 11.6 g/dL 04/01/2020 15.7 11.2 HCT 35.3 % 04/01/2020 44.9 34.1 WBC 7.60 thou/c* 04/01/2020 10.04 3.98 PLT 228 thou/c* 04/01/2020 369 182 NA 142 mmol/L 04/01/2020 144 136 K 3.9 mmol/L 04/01/2020 5.1 3.7 GLUC 85 mg/dL 04/01/2020 99 74 BUN 7 mg/dL 04/01/2020 21 7 CREAT 0.87 mg/dL 04/01/2020 0.96 0.58 PTSEC No results within date range. INR No results within date range. APTT No results within date range. ALT 23 U/L 04/01/2020 38 7 AST 25 U/L 04/01/2020 35 13 TBILI 0.3 mg/dL 04/01/2020 1.3 0.2 TSH No results within date range. Lab Value Units Date High Low HCGQT No results within date range. UHCG No results within date range. HCG, BODY* No results within date range. Lab Value Units Date High Low ABORHD No results within date range. ABSCREEN No results within date range. No results found for: HBA1C Assessment/Plan ANESTHESIA FINDINGS: Intubation History: Pt has never had GA Significant Anesthesia Considerations: Has never had anesthesia FAMILY PROBLEMS WITH ANESTHESIA: no history of adverse anesthetic event Patient has the following medical conditions Asthma - Medication(s) reviewed and discussed the importance of compliance. Pt unsure if on maintance inhaler, using rescue MDI several time a week PLAN Procedure Diagnosis: Celiac disease [K90.0] Planned Procedure: Procedure(s): EGD (N/A) Planned Anesthetic: MAC SIGNATURE: Rosa Maria Watson APRN.CNP PATIENT NAME: Hemant Garcia DATE: July 24, 2020 TIME: 1:42 PM PAGER/CONTACT #: Normal [facility] IRON + TIBCon 07-24-2020 Iron [Mass/Vol] 26 ug/dL Low 41-186 [facility] Comment on above: Order Comment: Speci men Type: BLOOD SPECIMEN Performed By: #### I NAOMI, CRET1, FERR #### [facility] CLIA [id number] [address] [place] [address] Iron binding capacity [Mass/Vol] 276 ug/dL Normal 232-386 [facility] Comment on above: Order Comment: Speci men Type: BLOOD SPECIMEN Performed By: #### I NAOMI, CRET1, FERR #### [facility] CLIA [id number] [address] [place] [address] Iron saturation [Mass fraction] 9 % Low 15-57 [facility] Comment on above: Order Comment: Speci men Type: BLOOD SPECIMEN Performed By: #### I NAOMI, CRET1, FERR #### [facility] CLIA [id number] [address] [place] [address] Lipase SerPl-cCncon 07-24-20 20 Lipase [Catalytic activity/Vol] 57 U/L Normal 16-61 [facility] Comment on above: Order Comment: Speci men Type: BLOOD SPECIMEN Performed By: #### 3 016-3, 3040-3, B12, HFP ####[facility] [id number] [place] [address] OPERATIVE NOon 07-24-2020 OPERATIVE NO HNO ID: [id number] Author: Ochoa Gallagher Service: Gastroenterology Author Type: Physician Type: Operative Report Filed: 07/24/2020 3:49 PM Note Text: OPERATIVE/PROCEDURE REPORT LOG ID: [id number] Surgery/Procedure Date: 07/24/2020 Incision/Procedure Start Time: 3:30 PM Incision Close/Procedure End Time: 3:35 PM Surgeon(s)/Proceduralist (s) and Pari Mutuel Clerk(s): Surgeon(s) and Role: * Ochoa Gallagher - Primary No Additional Staff Procedure(s): Esophagogastroduodenosco py (EGD) with biopsy Anesthesia: Monitored Anesthesia Care Brief History: 29F with hx of morbid obesity and undifferentiated spondyloarthropathy, presenting for serologic evidence of celiac disease. Does also report LUQ pain and new onset diarrhea in the last week but no chronic hx of such. The risks, benefits and alternatives of the procedure were explained to the patient/responsible accompanying adult. This includes, but is not limited to, bleeding, infection and a 1:1000 risk of perforation. There is also a small risk of allergic reaction(s) due to sedatives, need for hospitalization, need for transfusions, need for surgery, and likelihood of missing a polyp or neoplastic lesion. The patient understands this and is amenable to proceeding. Procedure Details: The patient was placed in the left lateral decubitus position. A bite block was placed and medications administered as above. The Olympus gastroscope was used to intubate the oropharynx and esophagus with ease. We proceeded down to the second part of the duodenum. The duodenal mucosa and D2 appeared slightly atrophic and scalloped. Biopsies were taken to rule out celiac disease. The duodenal bulb was normal. We then withdrew into the stomach and visualized a normal antrum and body. Biopsies were taken to rule out H. Pylori. Retroflexion was performed and this showed a normal fundus and cardia. The squamocolumnar junction, GE junction and esophagus appeared normal. The scope was then withdrawn and the patient tolerated the procedure well. Pre-Op/Pre-Procedure Diagnosis: Celiac disease Post-Op/Post-Procedure Diagnosis: Slightly atrophic duodenum with scalloping Normal esophagus and stomach. Biopsies taken to rule out H. Pylori and celiac disease. Specimens: See above EBL: None Complications: None Recommendations: Follow up pathology Reminded her to get her lab work done Referral to dietitian still pending Advised her to start on gluten-free diet I/primary surgeon/proceduralist performed the entire procedure. Ochoa Gallagher MD MPH FRCPC SIGNATURE: Ochoa Gallagher MD MPH FRCPC PATIENT NAME: Hemant Garcia DATE: July 24, 2020 TIME: 3:48 PM PAGER/CONTACT #: [phone] [facility] PT panel Coag (PPP)on 2019 INR Coag (PPP) [Relative time] 1.0 {INR} Normal 0.9-1.3 [facility] Comment on above: Order Comment: Speci men Type: BLOOD SPECIMEN Result Comment: Stephenie min K Antagonist (VKA) Therapeutic Range: INR 2 to 3 (Target INR of 2.5) Note: For patients treated with VKA drugs, such as warfarin, the [place] [employer] 2012 Guideline recommends a therapeutic INR range of 2 to 3 (target INR of 2.5). This recommendation includes high-risk patients with antiphospholipid syndrome with previous arterial or venous thromboembolism, current-generation mechanical or bioprosthetic aortic heart valve replacement. Note: Patients with mechanical aortic valve replacement and additional risk factors for thromboembolic events (atrial fibrillation, previous thromboembolism, LV dysfunction, hypercoagulable conditions) or an older generation mechanical AVR (i.e., ball in-Cage) or any mechanical MVR should have a INR therapeutic range of 2.5 to 3.5 (target INR of 3). David GH, et al. Chest 2012, 141:7S-47S Eleuterio RA, et al. [facility] 2017, 70: 252-289 Performed By: #### 3 4528-0 #### [facility] CLIA [id number] [address] [place] [address] [place] PT Coag (PPP) [Time] 10.2 s Normal 9.7-13.0 [facility] Comment on above: Order Comment: Speci men Type: BLOOD SPECIMEN Performed By: #### 3 4528-0 #### [facility] CLIA [id number] [address] [place] [address] [place] SURGICAL PATHOLOGYon 020 CASE REPORT Normal [facility] Comment on above: Order Comment: Speci janett Type: TISSUE SPECIMEN Result Comment: Surg ical Pathology Report Case: [id number] Authorizing Provider: Ochoa Gallagher Collected: 07/24/2020 03:32 PM Ordering Location: LAB EKG [facility] Received: 07/25/2020 11:19 AM Pathologist: Enrico Kincaid MD Specimens: A) - DUODENUM BIOPSY, 2nd part of duodenum; r/o celiac disease B) - DUODENUM BIOPSY, duodenal bulb C) - GASTRIC BIOPSY Performed By: #### S ####[facility]IA [id number] [place] [address] CLINICAL HISTORY Celiac disease. Normal [facility] Comment on above: Order Comment: Speci men Type: TISSUE SPECIMEN Performed By: #### S ####[facility] [id number] [place] [address] DIAGNOSIS COMMENT In parts A and B, H AND E stained sections demonstrate mild probable villous blunting with increased intraepithelial lymphocytes. The differential diagnosis of this variable villous abnormality includes partially treated/clinically latent celiac sprue, infectious etiologies, drug effect, and a variety of allergic-type/autoimmune phenomena, including inflammatory bowel disease. Clinical, endoscopic, and serologic correlation are recommended. Normal [facility] Comment on above: Order Comment: Speci men Type: TISSUE SPECIMEN Performed By: #### S ####[facility] [id number] [place] [address] FINAL DIAGNOSIS Normal [facility] Comment on above: Order Comment: Speci men Type: TISSUE SPECIMEN Result Comment: A) D uodenum, biopsy - Duodenal mucosa with increased intraepithelial lymphocytes and suggestion of mild villous blunting (see comment). B) Duodenum, bulb, biopsy - Superficial small bowel mucosa with mild increased intraepithelial lymphocytes and suggestion of mild villous blunting (see comment). C) Stomach, biopsy - Gastric mucosa with no significant histopathologic change. Performed By: #### S ####[facility]IA [id number] [place] [address] FINAL PERFORMING LAB Normal [facility] Comment on above: Order Comment: Speci men Type: TISSUE SPECIMEN Result Comment: Diag nostic interpretation performed at [facility], [address] [place] [address] CLIA# [id number] Personal Financial Advisor: Froylan Mejias M.D. Performed By: #### S ####[facility]CLIA [id number] [place] [address] GROSS DESCRIPTION [facility] Comment on above: Order Comment: Speci men Type: TISSUE SPECIMEN Result Comment: A. D UODENUM BIOPSY. Received in formalin labeled second part of duodenum, rule out celiac disease are two johnston, soft tissue fragments aggregating to 0.6 x 0.2 x 0.2 cm. Totally submitted in 1 cassette. B. DUODENUM BIOPSY. Received in formalin labeled duodenal bulb are two johnston soft tissue fragments aggregating to 0.6 x 0.2 x 0.2 cm. Totally submitted in 1 cassette. C. GASTRIC BIOPSY. Received in formalin labeled gastric biopsy are two johnston soft tissue fragments aggregating to 0.8 x 0.2 x 0.2 cm. Totally submitted in 1 cassette. RSA/pkp Gross examination performed at [facility], [address] [place] [address] CLIA# [id number] Performed By: #### S ####[facility]IA [id number] [place] [address] TRANSGLUTAMINASE ABSon 07-24 tTG IgA Qn (S) 68 Units High <20 [facility] Comment on above: Order Comment: Speci men Type: BLOOD SPECIMEN Result Comment: Nega tive : < 20 Units Weak Positive : 20 - 30 Units Moderate Pos to Strong Pos: >30 Units The following results were obtained with the [employer] QUANTA Lite h-tTG IgA SHIRLEY. h-tTG IgA values obtained with different manufacturers' assay methods may not be used interchangeably. The magnitude of the reported IgA levels cannot be correlated to an endpoint titer. Performed By: #### T GLGMA #### [facility] CLIA [id number] [address] [place] [address] tTG IgG Qn (S) 7 Units Normal <20 [facility] Comment on above: Order Comment: Speci men Type: BLOOD SPECIMEN Result Comment: Nega tive : < 20 Units Weak Positive : 20 - 30 Units Moderate Pos to Strong Pos: >30 Units The following results were obtained with the [employer]ova QUANTA Lite h-hTG IgG SHIRLEY. h-tTG IgG values obtained with different manufacturers' assay methods may not be used interchangeably. The magnitude of the reported IgG levels cannot be correlated to an endpoint titer. Performed By: #### T GLGMA #### [facility] CLIA [id number] [address] [place] [address] TSH SerPl-aCncon 07-24-2020 TSH Qn 2.260 m[IU]/L Normal 0.270-4.200 [facility] Comment on above: Order Comment: Speci men Type: BLOOD SPECIMEN Result Comment: If t he patient is , TSH reference range varies by gestational period: First Trimester (weeks 9-12): 0.180-2.990 mcIU/mL Second Trimester: 0.110-3.980 mcIU/mL Third Trimester: 0.480-4.710 mcIU/mL Ralph Whalen et al. A Practical Approach for the Verifications and Determination of Site- and Trimester-Specific Reference Intervals for Thyroid Function tests in . Thyroid, 2019:29:3:412-420. Fan Lacy, et al. 2017 Guidelines of the [place] Thyroid Association for the Diagnosis and Management of Thyroid Disease during and the . Thyroid, 2017:27:3:315-389. Performed By: #### 3 016-3, 3040-3, B12, HFP ####[facility]IA [id number] [place] [address] VITAMIN B12 BLOODon 07-24-20 20 Cobalamin (Vitamin B12) [Mass/Vol] 440 pg/mL Normal 232-1,245 [facility] Comment on above: Order Comment: Speci men Type: BLOOD SPECIMEN Performed By: #### 3 016-3, 3040-3, B12, HFP ####[facility]CLIA [id number] [place] [address] VITAMIN D1 25-DIHYDRon 07-24 VIT D1, 25 DIHYDROXY 25.1 pg/mL Normal 15.0-60.0 [facility] Comment on above: Order Comment: Speci men Type: BLOOD SPECIMEN Result Comment: This test was developed and its performance characteristics determined by [facility] [place] ([facility]). It has not been cleared or approved by the FDA. [facility] is regulated under CLIA as qualified to perform high complexity testing. This test is used for clinical purposes. It should not be regarded as investigational or for research. Performed By: #### Vandana LILEONELA, 125VTD ####[facility] LABCLIA [id number] [place] [address] VITAMIN D 1,25 DIHYDROXY D2 <4.0 Normal [facility] Comment on above: Order Comment: Speci men Type: BLOOD SPECIMEN Performed By: #### Vandana LILEONELA, 125VTD ####[facility] LABCLIA [id number] [place] [address] VITAMIN D 1,25 DIHYDROXY D3 25.1 pg/mL Normal [facility] Comment on above: Order Comment: Speci men Type: BLOOD SPECIMEN Performed By: #### Vandana CHRISTALEONELA, 125VTD ####[facility] LABCLIA [id number] [place] [address] CNCOon 07-18-2020 CNCO Letter Text Normal [facility] CNOVon 07-18-2020 CNOV Office Visit ([facility]) -------- HEMANT GARCIA ([id number]) 1990 F Date Time Provider Department 07/18/20 9:45 AM OCHOA GALLAGHER AGGASTACC During your visit today, we recorded the following information about you: Pulse Blood pressure Weight Height 68/minute 134/76 146.1 kg 1.727 m Ochoa Gallagher MD MPH FRCPC 07/18/2020 10:25 AM Signed GASTROENTEROLOGY CONSULT HPI: Hemant Garcia is a 29 year old female who presents for celiac disease. 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 She was found to have serologic evidence of celiac disease with elevated TTG at 113. She has been taking meloxicam and SSZ for her joint pain. She reports N and non-blood emesis x 1 week. Also LUQ and back pain x 1 week. She wonders about it being a UTI. 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 If she eats pasta, hong konger food or vincentian food, she vomits. No dysphagia or odynophagia. Does have GERD and takes TUMS. No jaundice or icterus. Only developed diarrhea in the last week. No blood or melena. Previously was having regular BMs. No weight loss. Has small skin rash, about 2-3 cm on forearm No rash on elbows or knees She is waiting to see Derm No prior scopes Current smoker, no alcohol use She works at [employer] No FHx of CRC, celiac disease, IBD History reviewed. No pertinent past medical history. History reviewed. No pertinent surgical history. Current Outpatient Medications Medication Sig - chlorzoxazone (PARAFON FORTE DSC) 500 mg tablet Take 500 mg by mouth three times daily as needed. - meloxicam (MOBIC) 15 mg tablet Take 1 tablet by mouth once daily. - sulfaSALAzine (AZULFIDINE) 500 mg tablet Take 2 tablets by mouth three times daily. - SUMAtriptan (IMITREX) 50 mg tablet Take 50 mg by mouth as needed. No current facility-administered medications for this visit. ALLERGIES Allergen Reactions - Reglan [Metoclopram* Other: See Comments Anxiety attack Family history reviewed. No history of colon cancer or IBD. Social History Tobacco Use - Smoking status: Current Every Day Smoker Packs/day: 0.25 Types: Cigarettes Start date: 01/31/2004 - Smokeless tobacco: Never Used - Tobacco comment: February 06, 2019 Substance Use Topics - Alcohol use: Not Currently - Drug use: Never REVIEW OF SYSTEMS GASTROINTESTINAL: SEE ABOVE URINARY: No dark urine or hematuria unless documented above CARDIOVASCULAR: No chest pain NEUROLOGICAL: No new focal neuro deficits CONSTITUTIONAL: No weight loss or fever unless documented above EYES: No scleral icterus unless documented above EARS, NOSE AND THROAT: No deformities or abnormalities RESPIRATORY: No dyspnea SKIN: No rashes other than documented above ENDOCRINE: No features of hypothyroidism other than those documented above PSYCHIATRIC: No overt elisha or psychosis HEMATOLOGIC No bruising or hemarthroses MUSCULOSKELETAL: No myalgias or bony deformities IMMUNOLOGIC: No immune deficits unless documented elsewhere PHYSICAL EXAMINATION: Ht 5' 8 (1.73m) Wt 322 lb 1.6 oz (146.1kg) BMI 48.99 kg/(m2). GENERAL APPEARANCE: Well appearing, alert, in no acute distress, well-hydrated, well nourished. SKIN: Skin color, texture, turgor normal, no suspicious rashes or lesions. EYES: Anicteric sclera. Pupils are equally round and reactive to light. Extraocular movements are intact. NECK: Supple, no adenopathy; thyroid symmetric, normal size, no bruits. LUNGS: No accessory muscle use, no cyanosis, no asymmetric calf swelling, no bony deformity. HEART: Normal JVP, no significant peripheral edema, no thrill ABDOMEN: Abdomen soft, non-tender, non distended. No masses, ascites or hepatosplenomegaly. EXTREMITIES: No deformities, edema, skin discoloration, clubbing or cyanosis. NEUROLOGIC: Gait normal. Sensation and strength grossly intact. LABS: Lab tests reviewed. HGB (g/dL) Date Value 04/01/2020 11.6 Hematocrit (%) Date Value 04/01/2020 35.3 WBC (thou/cmm) Date Value 04/01/2020 7.60 Platelet Count (thou/cmm) Date Value 04/01/2020 228 Creatinine Date Value Ref Range Status 04/01/2020 0.87 0.58 - 0.96 mg/dL Final AST Date Value Ref Range Status 04/01/2020 25 13 - 35 U/L Final ALT Date Value Ref Range Status 04/01/2020 23 7 - 38 U/L Final Bilirubin, Total (mg/dL) Date Value 04/01/2020 0.3 WBC (thou/cmm) Date Value 04/01/2020 7.60 RBC (mil/cmm) Date Value 04/01/2020 4.45 %DIG,%DBS No results found for: TSH IMAGING: Imaging including X-rays, Ultrasound, CT scans, MRI scans reviewed. none Old records reviewed if available. Plan ASSESSMENT AND PLAN: 29F with hx of morbid obesity and undifferentiated spondyloarthropathy, presenting for serologic evidence of celiac disease. Does also report LUQ pain and new onset hong (more content not included)... Normal [facility] Giovanna 07-18-2020 [facility] Telephone ([facility] ) -------- HEMANT GARCIA ([id number]) 1990 F Date Time Provider Department 07/18/20 OCHOA GALLAGHER During your visit today, we recorded the following information about you: Myrna Nascimento 07/18/2020 11:00 AM Signed Surgery Checklist Type: EGD Admission Type: outpatient Anesthesia: MAC Date: 07/24/20 Arrival Time: 02:00 PM Surgery Time: 03:00 PM Location: [facility] [place]# [id number] Prep given at appointment. The patient will check [employer] for Covid for testing time and date. Myrna Nascimento Allergies As of Date: 07/18/2020 Noted Allergy Reaction REGLAN (METOCLOPRAMIDE HCL) 01/19/2020 14 - Other: See Comments Comments: Anxiety attack Date Reviewed: 07/18/2020 Reviewed by: Shawn Darden - Fully Assessed Reason for Visit: Future Appointment [256] Prescriptions as of 07/18/2020 Sig: CHLORZOXAZONE 500 MG TABLET Take 500 mg by mouth three ti* MELOXICAM 15 MG TABLET Take 1 tablet by mouth once d* SULFASALAZINE 500 MG TABLET Take 2 tablets by mouth three* SUMATRIPTAN 50 MG TABLET Take 50 mg by mouth as needed. Problem List As Of Date 07/18/2020 Noted Resolved Inflammatory arthritis [M19.90] 02/08/2020 Positive AMANDA (antinuclear antibody) [R76.8] 02/08/2020 Lymphadenopathy [R59.1] 02/08/2020 Encounter Status:Closed by MYRNA NASCIMENTO on 07/18/20 [facility] HOSPon 07-18-2020 HOSP Patient:Darwin Garcia MRN: Height:5' 8(1.727 m) Weight:320 lb (145.151 kg) Outpatient Medications as of 07/24/20: ALBUTEROL INHALATION chlorzoxazone (PARAFON FORTE DSC) 500 mg tablet meloxicam (MOBIC) 15 mg tablet sulfaSALAzine (AZULFIDINE) 500 mg tablet SUMAtriptan (IMITREX) 50 mg tablet Admission/Clinic Administered Medications as of 07/24/20: lidocaine 10 mg/mL (1 %) 1-2 mg injection (XYLOCAINE) lactated ringers infusion Problem List: Inflammatory arthritis [M19.90] Positive AMANDA (antinuclear antibody) [R76.8] Lymphadenopathy [R59.1] Asthma [J45.909] Allergies: Reglan [Metoclopramide Hcl] Date Verified: 07/24/20 Lab Values No results within the last 30 days for the following basenames: K,HCT Progress Notes ([facility]): Myrna Nascimento 07/18/2020 11:00 AM Signed Surgery Checklist Type: EGD Admission Type: outpatient Anesthesia: MAC Date: 07/24/20 Arrival Time: 02:00 PM Surgery Time: 03:00 PM Location: [facility]# [id number] Prep given at appointment. The patient will check [employer] for Covid for testing time and date. Myrna Nascimento Progress Notes ([facility]): Ochoa Gallagher MD MPH [facility] 07/18/2020 10:25 AM Signed GASTROENTEROLOGY CONSULT HPI: Hemant Garcia is a 29 year old female who presents for celiac disease. 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 She was found to have serologic evidence of celiac disease with elevated TTG at 113. She has been taking meloxicam and SSZ for her joint pain. She reports N and non-blood emesis x 1 week. Also LUQ and back pain x 1 week. She wonders about it being a UTI. 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 If she eats pasta, hong konger food or vincentian food, she vomits. No dysphagia or odynophagia. Does have GERD and takes TUMS. No jaundice or icterus. Only developed diarrhea in the last week. No blood or melena. Previously was having regular BMs. No weight loss. Has small skin rash, about 2-3 cm on forearm No rash on elbows or knees She is waiting to see Derm No prior scopes Current smoker, no alcohol use She works at [employer] No FHx of CRC, celiac disease, IBD History reviewed. No pertinent past medical history. History reviewed. No pertinent surgical history. Current Outpatient Medications Medication Sig - chlorzoxazone (PARAFON FORTE DSC) 500 mg tablet Take 500 mg by mouth three times daily as needed. - meloxicam (MOBIC) 15 mg tablet Take 1 tablet by mouth once daily. - sulfaSALAzine (AZULFIDINE) 500 mg tablet Take 2 tablets by mouth three times daily. - SUMAtriptan (IMITREX) 50 mg tablet Take 50 mg by mouth as needed. No current facility-administered medications for this visit. ALLERGIES Allergen Reactions - Reglan [Metoclopram* Other: See Comments Anxiety attack Family history reviewed. No history of colon cancer or IBD. Social History Tobacco Use - Smoking status: Current Every Day Smoker Packs/day: 0.25 Types: Cigarettes Start date: 01/31/2004 - Smokeless tobacco: Never Used - Tobacco comment: February 06, 2019 Substance Use Topics - Alcohol use: Not Currently - Drug use: Never REVIEW OF SYSTEMS GASTROINTESTINAL: SEE ABOVE URINARY: No dark urine or hematuria unless documented above CARDIOVASCULAR: No chest pain NEUROLOGICAL: No new focal neuro deficits CONSTITUTIONAL: No weight loss or fever unless documented above EYES: No scleral icterus unless documented above EARS, NOSE AND THROAT: No deformities or abnormalities RESPIRATORY: No dyspnea SKIN: No rashes other than documented above ENDOCRINE: No features of hypothyroidism other than those documented above PSYCHIATRIC: No overt elisha or psychosis HEMATOLOGIC No bruising or hemarthroses MUSCULOSKELETAL: No myalgias or bony deformities IMMUNOLOGIC: No immune deficits unless documented elsewhere PHYSICAL EXAMINATION: Ht 5' 8 (1.73m) Wt 322 lb 1.6 oz (146.1kg) BMI 48.99 kg/(m2). GENERAL APPEARANCE: Well appearing, alert, in no acute distress, well-hydrated, well nourished. SKIN: Skin color, texture, turgor normal, no suspicious rashes or lesions. EYES: Anicteric sclera. Pupils are equally round and reactive to light. Extraocular movements are intact. NECK: Supple, no adenopathy; thyroid symmetric, normal size, no bruits. LUNGS: No accessory muscle use, no cyanosis, no asymmetric calf swelling, no bony deformity. HEART: Normal JVP, no significant peripheral edema, no thrill ABDOMEN: Abdomen soft, non-tender, non distended. No masses, ascites or hepatosplenomegaly. EXTREMITIES: No deformities, edema, skin discoloration, clubbing or cyanosis. NEUROLOGIC: Gait normal. Sensation and strength grossly intact. LABS: Lab tests reviewed. HGB (g/dL) Date Value 04/01/2020 11.6 Hematocrit (%) Date Value 04/01/2020 35.3 WBC (thou/cmm) Date Value 04/01/2020 7.60 Platelet Count (thou/cmm) (more content not included)... Normal [facility] CNCOon 04-08-2020 CNCO Letter Text Normal [facility] CNPNon 04-07-2020 CNPN Telephone (AGRHEUHWN ) -------- HEMANT GARCIA ([id number]) 1990 F Date Time Provider Department 04/07/20 JANET RAMSAY During your visit today, we recorded the following information about you: Janet Ramsay MD 04/07/2020 2:09 PM Signed Renetta Hitchcock Cart Driver please call her Labs show positive test for celiac disease. Do not start gluten free diet. Will need to get a endoscopy confirmation of celiac disease once positive then gluten free diet. Continue on current med. MD Rakan Vásquez [employer] 04/08/2020 8:54 AM Signed Internal referral #[id number] Gastroenterology Rakan [employer] Naomy Hitchcock CMA 04/08/2020 9:06 AM Signed Phone has restrictions. Unable to call patient. DIONTE Prater CMA 04/08/2020 12:40 PM Signed Unable to reach phone with restriction from out number. Letter mailed to patient to call office about labs. Naomy Hitchcock CMA' Naomy Hitchcock CMA 04/10/2020 10:57 AM Signed Patient called back. Told her Gastroenterology referral to check for Celiac, but don't restrict gluten until seen. DIONTE Prater [employer] Par[employer] 05/06/2020 8:04 AM Signed Allergies As of Date: 04/07/2020 Noted Allergy Reaction REGLAN (METOCLOPRAMIDE HCL) 01/19/2020 14 - Other: See Comments Comments: Anxiety attack Date Reviewed: 04/01/2020 Reviewed by: Janet Ramsay - Fully Assessed Reason for Visit: Initial Consult [665] Cmt: gastroenterology Prescriptions as of 04/07/2020 Sig: CHLORZOXAZONE 500 MG TABLET Take 500 mg by mouth three ti* MELOXICAM 15 MG TABLET Take 1 tablet by mouth once d* SULFASALAZINE 500 MG TABLET Take 2 tablets by mouth three* SUMATRIPTAN 50 MG TABLET Take 50 mg by mouth as needed. Problem List As Of Date 04/07/2020 Noted Resolved Inflammatory arthritis [M19.90] 02/08/2020 Positive AMANDA (antinuclear antibody) [R76.8] 02/08/2020 Lymphadenopathy [R59.1] 02/08/2020 Encounter Status:Closed by FLAKITA GOETZARYRAKAN on 04/08/20 Normal [facility] Complement C3on 04-05-2020 Complement C3 125 mg/dL Normal 86-166 [facility] Comment on above: Result Comment: Perf orbrandon Laboratory: [facility] [address] [place] [address] Performed By: #### C 3X #### [place] [address] Complement C4on 04-05-2020 Complement C4 24 mg/dL Normal 13-46 [facility] Comment on above: Result Comment: Connor orbrandon Laboratory: [facility] [address] [place] [address] Performed By: #### C 4X #### [place] [address] DS-DNA Ab w Confon 0 DS-DNA Ab w Conf SEE BELOW Normal [facility] Comment on above: Result Comment: DNA Antibody w/ Conf. <12 <30 IU/mL Negative for ds DNA Antibodies Negative: <30 IU/mL Equivocal: 30-74 IU/mL Positive: >74 IU/mL Performing Laboratory: [email or web address] [address] [place] [address] Performed By: #### D NADX #### [place] [address] IgAon 04-05-2020 IgA [Mass/Vol] 272 mg/dL Normal 78-391 [facility] Comment on above: Result Comment: Perf orming Laboratory: [facility] [address] [place] [address] Performed By: #### C RP3 #### [facility] [address] [place], [place] [address] IgGon 04-05-2020 IgG [Mass/Vol] 1250 mg/dL Normal 717-1411 [facility] Comment on above: Result Comment: Perf orming Laboratory: [facility] [address] [place] [address] Performed By: #### C RP3 #### [facility] [address] [place], [place] [address] IgMon 04-05-2020 IgM [Mass/Vol] 79 mg/dL Normal 53-334 [facility] Comment on above: Result Comment: Perf orming Laboratory: [facility] [address] [place] [address] Performed By: #### C RP3 #### [address] [address] PAINTER ASSISTANT Antibodyon 04-05-2020 PAINTER ASSISTANT Antibody <0.2 Normal <1.0 [facility] Comment on above: Result Comment: Nega tive Negative: <1.0 AI Positive: >0.9 AI Test performed using the Multiplex Flow Immunoassay technology. Performing Laboratory: [facility] [address] [place] [address] Performed By: #### C RP3 #### [address] [address] Scleroderma IgG Abon 020 Scleroderma IgG Ab SEE BELOW Normal [facility] Comment on above: Result Comment: Scl- 70 Abs <0.2 <1.0 AI Negative Negative: <1.0 AI Positive: >0.9 AI Test performed using the Multiplex Flow Immunoassay technology. Performing Laboratory: [facility] [address] [place] [address] Performed By: #### C RP3 #### [facility] [address] [place], [place] [address] Sjogren Antibodieson 020 SSA Antibody <0.2 Normal <1.0 [facility] Comment on above: Result Comment: Nega tive Negative: <1.0 AI Positive: >0.9 AI Test performed using the Multiplex Flow Immunoassay technology. Performed By: #### S JO2X #### [facility] [address] [place], [place] [address] SSB Antibody <0.2 Normal <1.0 [facility] Comment on above: Result Comment: Nega tive Negative: <1.0 AI Positive: >0.9 AI Test performed using the Multiplex Flow Immunoassay technology. Performing Laboratory: [facility] [address] [place] [address] Performed By: #### S JO2X #### [facility] [address] [place], [place] [address] Nascimento Abs IgGon 04-05-2020 Nascimento Abs IgG SEE BELOW Normal [facility] Comment on above: Result Comment: Sm A ntibody <0.2 <1.0 AI Negative Negative: <1.0 AI Positive: >0.9 AI Test performed using the Multiplex Flow Immunoassay technology. Performing Laboratory: [place] [address] [place] [address] Performed By: #### C RP3 #### [address] [address] Transglutaminase Abson 04-05 Transglutaminase Abs SEE BELOW Normal [facility] Comment on above: Result Comment: Bonilla sglutaminase IgG 5 <20 Units Negative : < 20 Units Weak Positive : 20 - 30 Units Moderate Pos to Strong Pos: >30 Units The following results were obtained with the [employer] QUANTA Lite h-hTG IgG SHIRLEY. h-tTG IgG values obtained with different manufacturers' assay methods may not be used interchangeably. The magnitude of the reported IgG levels cannot be correlated to an endpoint titer. Transglutaminase IgA 113 H <20 Units Negative : < 20 Units Weak Positive : 20 - 30 Units Moderate Pos to Strong Pos: >30 Units The following results were obtained with the [employer] QUANTA Lite h-tTG IgA SHIRLEY. h-tTG IgA values obtained with different manufacturers' assay methods may not be used interchangeably. The magnitude of the reported IgA levels cannot be correlated to an endpoint titer. Performing Laboratory: [facility] [address] [place] [id number] Performed By: #### C RP3 #### [facility] [address] [place] [id number] CNOVon 04-01-2020 CNOV Office Visit (BILLIE HARMON) -------- HEMANT GARCIA ([id number]) 1990 F Date Time Provider Department 04/01/20 3:40 PM JANET RAMSAY During your visit today, we recorded the following information about you: Temperature Pulse Blood pressure Weight 98.3 degrees 73/minute 125/70 145.6 kg Height 1.753 m Janet Ramsay MD 04/07/2020 2:07 PM Addendum This note was created using ClearSlideriter. Subjective Hemant Garcia is a 29 year old female. Been to er couple of time Pain is not controlled At work is having difficulty on account of pain I am miserable and cannot take the pain sulfasalazine started no side effect Not feeling any better Most of the pain is in the right groin and right Sarcoiliac joint area No neck pain Low back pain and radiates to right knee No upper ext pain Grasp is not weaker knEE PAIN < right hip No left hip pain After work cannot find comfort Ankle and feet pain no change . No Hidradenitis Suppurativa Review of Systems Constitutional: Positive for fatigue. HENT: Negative. Eyes: Negative. Respiratory: Negative. Cardiovascular: Negative. Endocrine: Negative. Genitourinary: Negative. Skin: Negative. Allergic/Immunologic: Negative. Neurological: Negative. Hematological: Negative. Psychiatric/Behavioral: Negative. Objective Blood Pressure 125/70 (BP Site: Right Arm, BP Position: Sitting) Pulse 73 Temperature 36.8 ?C (98.3 ?F) Height 175.3 cm (5' 9) Weight (Abnormal) 145.6 kg (321 lb) Body Mass Index 47.40 kg/m? Physical Exam Vitals signs reviewed. Constitutional: Appearance: Normal appearance. Neck: Musculoskeletal: No neck rigidity or muscular tenderness. Cardiovascular: Heart sounds: No murmur. No friction rub. Pulmonary: Effort: No respiratory distress. Breath sounds: Normal breath sounds. No stridor. No wheezing or rhonchi. Abdominal: General: There is no distension. Palpations: Abdomen is soft. There is no mass. Tenderness: There is no abdominal tenderness. Hernia: No hernia is present. Musculoskeletal: Right shoulder: Normal. Left shoulder: Normal. Right elbow: Normal. Left elbow: Normal. Right wrist: Normal. Left wrist: Normal. Right hip: Normal. Left hip: Normal. Right knee: Normal. Left knee: Normal. Right ankle: Normal. Left ankle: Normal. Cervical back: Normal. Thoracic back: Normal. Lumbar back: Normal. Right hand: Normal. Left hand: Normal. Right lower leg: No edema. Left lower leg: No edema. Right foot: Normal. Left foot: Normal. Comments: Sarcoiliac joint pain Right trochanteric bursa Not clear if plantar fascitis in feet No upper ext pain . Skin: Findings: No rash. Neurological: Mental Status: She is alert. Psychiatric: Mood and Affect: Mood normal. Behavior: Behavior normal. Thought Content: Thought content normal. Judgment: Judgment normal. Assessment and Plan First visit 01/19/2020 ( PCP sent here for joint pains and to see connective tissue disease ) + unclear spleen Undifferentiated spondyloarthritis ? Celiac Disease serology positive IgA, IgG Transglutaminase Ab: 11, IgG negative, IgA levels (mg/dl) are 272 mg.dl mg/dl 04/05/2020 IgM 79 mg.d lIgG 1250 mg.dl ( 2016 onset after delivery of 1st child) TREATMENT prednisone used for flares with relief. ( no hypermobility noted in exam), exam and history more suggestive of Undifferentiated spondyloarthritis sulfasalazine 1.5 gm no better 04/01/2020 change to 3 gm a day. AMANDA 1:80 homogenous 04/2019 ESR 50 mm RF negative. 05/27 Angiotensin converting enzyme levels normal. 30 . 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 Drug and disease monitoring 04/27 CMP normal Alk phos 143 high 12/2019 CK 78 CRP 17.8 mg/l ( < 6) ESR 17 mm normal cmp alk phos normal 04/05/2020 ESR 26 mm CRP 0.9 mg.dl CMP CBC normal Splenomegaly since 2018 ( CT abdomen 2018 18 cm ) ( no symptoms) USG 12/[address] Clark Hematology seen . Hilar lymphadenopathy 04/2019 CT mild enlarged hilar nodes. Also scattered nodular density Pulm Seen Felicity pending work up PFT pending 01/19/2020 no biopsy planned per patient, last follow up 07/2019 Sarcoidosis ? No appt with pulm for now, possible sarcoidosis, can explain her medical findings . Leukocytosis 2018 onset. 2019 wbc normal 7900. H/h 12.6/38.4 PLT 308 11/2019 8500 resolved issue 01/19/2020 observe. Chronic neck pain 2020 onset 01/19/2020 observe Chronic low back pain 2016 onset. ( Lumbar radiculopathy right side to knee) ( worse with activity ) 11/2019 LS xray : Small anterior endplate osteophytes arise from the inferior endplate of L1 and superior endplate of L3, similar to the prior study. 04/05/2020 xr Sarcoiliac joint normal (more content not included)... Normal [facility] CRPon 04-01-2020 CRP 0.9 mg/dL High 0.0-0.8 [facility] Comment on above: Performed By: #### C RP3 #### [place] [address] Comprehensive Metabolic Pane mike 04-01-2020 Albumin [Mass/Vol] 3.9 g/dL Normal 3.9-4.9 [facility] Comment on above: Performed By: #### C MP #### [address] [address] ALP [Catalytic activity/Vol] 89 U/L Normal 34-123 [facility] Comment on above: Performed By: #### C MP #### [address] [address] ALT [Catalytic activity/Vol] 23 U/L Normal 7-38 [facility] Comment on above: Performed By: #### C MP #### [address] [address] Anion gap [Moles/Vol] 8 mmol/L Low 9-18 [facility] Comment on above: Performed By: #### C MP #### [facility] [address] [place], [place] [address] AST [Catalytic activity/Vol] 25 U/L Normal 13-35 [facility] Comment on above: Performed By: #### C MP #### [facility] [address] [place], [place] [address] Bilirubin [Mass/Vol] 0.3 mg/dL Normal 0.2-1.3 [facility] Comment on above: Performed By: #### C MP #### [facility] [address] [place], [place] [address] Calcium [Mass/Vol] 9.1 mg/dL Normal 8.5-10.2 [facility] Comment on above: Performed By: #### C MP #### [facility] [address] [place], [place] [address] Chloride [Moles/Vol] 108 mmol/L High 97-105 [facility] Comment on above: Performed By: #### C MP #### [facility] [address] [place], [place] [address] CO2 [Moles/Vol] 26 mmol/L Normal 22-30 [facility] Comment on above: Performed By: #### C MP #### [facility] [address] [place], [place] [address] Creatinine [Mass/Vol] 0.87 mg/dL Normal 0.58-0.96 [facility] Comment on above: Performed By: #### C MP #### [facility] [address] [place], [place] [address] Glucose [Mass/Vol] 85 mg/dL Normal 74-99 [facility] Comment on above: Result Comment: The [place] Diabetes Association (ADA) provides guidance for cutoff values for fasting glucose and random glucose. The ADA defines fasting as no caloric intake for at least 8 hours.Fasting plasma glucose results between 100 to 125 mg/dL indicate increased risk for diabetes (prediabetes). Fasting plasma glucose results greater than or equal to 126 mg/dL meet the criteria for diagnosis of diabetes. In the absence of unequivocal hyperglycemia, results should be confirmed by repeat testing. In a patient with classic symptoms of hyperglycemia or hyperglycemic crisis, random plasma glucose results greater than or equal to 200 mg/dL meet the criteria for diagnosis of diabetes. Reference: Standards of Medical Care in Diabetes 2016; [place] [employer] Association. Diabetes Care. 2016;39(Suppl 1). Performed By: #### C MP #### [facility] [address] [place], [place] [address] Potassium [Moles/Vol] 3.9 mmol/L Normal 3.7-5.1 [facility] Comment on above: Performed By: #### C MP #### [address] [address] Protein [Mass/Vol] 6.7 g/dL Normal 6.3-8.0 [facility] Comment on above: Performed By: #### C MP #### [address] [address] Sodium [Moles/Vol] 142 mmol/L Normal 136-144 [facility] Comment on above: Performed By: #### C MP #### [address] [address] Urea nitrogen [Mass/Vol] 7 mg/dL Normal 7-21 [facility] Comment on above: Performed By: #### C MP #### [address] [address] Hemogramon 04-01-2020 Erythrocyte distribution width (RBC) [Ratio] 13.9 % Normal 11.7-14.4 [facility] Comment on above: Performed By: #### C BC1 #### [address] [address] Hematocrit (Bld) [Volume fraction] 35.3 % Normal 34.1-44.9 [facility] Comment on above: Performed By: #### C BC1 #### [address] [address] Hemoglobin (Bld) [Mass/Vol] 11.6 g/dL Normal 11.2-15.7 [facility] Comment on above: Performed By: #### C BC1 #### [address] [address] MCH (RBC) [Entitic mass] 26.1 pg Normal 25.6-32.2 [facility] Comment on above: Performed By: #### C BC1 #### [facility] [address] [place] [address] MCHC 32.9 % Normal 31.6-34.8 [facility] Comment on above: Performed By: #### C BC1 #### [facility] [address] [place] [address] MCV (RBC) [Entitic vol] 79.3 fL Low 79.4-94.8 [facility] Comment on above: Performed By: #### C BC1 #### [place] [address] Platelet mean volume (Bld) [Entitic vol] 10.7 fL Normal 9.4-12.3 [facility] Comment on above: Performed By: #### C BC1 #### [place] [address] Platelets (Bld) [#/Vol] 228 10*3/uL Normal 182-369 [facility] Comment on above: Performed By: #### C BC1 #### [place] [address] RBC 4.45 mil/cmm Normal 3.93-5.22 [facility] Comment on above: Performed By: #### C BC1 #### [place] [address] RDW SD 39.9 fl Normal 36.4-46.3 [facility] Comment on above: Performed By: #### C BC1 #### [place] [address] WBC (Bld) [#/Vol] 7.60 10*3/uL Normal 3.98-10.04 [facility] Comment on above: Performed By: #### C BC1 #### [place] [address] MDRD GFRon 04-01-2020 GFR/1.73 sq M.predicted among non-blacks MDRD (S/P/Bld) [Vol rate/Area] mL/min/{1.73_m2} Normal >60mL/min/1 .73m2 [facility] Comment on above: Result Comment: If t he patient is , multiply the result by 1.210. Performed By: #### G FR #### [facility] [address] [place], [place] [address] Sed Rateon 04-01-2020 Sed Rate 26 mm/hr High 0-20 [facility] Comment on above: Performed By: #### E SR #### [facility] [address] [place], [place] [address] XR SI JTS 2V AP PELV/FERGUSO Non 04-01-2020 XR SI JTS 2V AP PELV/NJ Final Report DATE OF EXAM: Apr 01 2020 4:11PM ANX 5245 - XR SI JTS 2V AP PELV/NJ / PROCEDURE REASON: Inflammatory arthritis Physician Interpretation EXAMINATION: XR SI JTS 2V AP PELV/NJ CLINICAL HISTORY: complains of low back and right hip pain, getting worse x2-3 years. SX: and cyst removed from fallopian tube right side. Inflammatory arthritis Technique: XR SI JTS 2V AP PELV/NJ -- NOT APPLICABLE with 2 views on 3 images Comparison: None RESULT: SI joints are maintained with no ankylosis, sclerosis or erosions. Hip joints are maintained bilaterally. No fracture or dislocation. Intact pubic symphysis. Lower lumbar spine is unremarkable. IMPRESSION: No acute osseous findings. No evidence of inflammatory arthropathy. Is Consultant: PSCB Transcribe Date/Time: Apr 03 2020 12:34P Dictated by : ANNA DRAKE MD This examination was interpreted and the report reviewed and electronically signed by: ANNA DRAKE MD on Apr 03 2020 12:36PM EST Normal [facility] CNOVon 02-08-2020 CNOV Office Visit (BILLIE HARMON) -------- HEMANT GARCIA ([id number]) 1990 F Date Time Provider Department 02/08/20 12:40 PM JANET RAMSAY During your visit today, we recorded the following information about you: Temperature Pulse Blood pressure Weight 98.2 degrees 93/minute 103/64 147 kg Height 1.753 m Jante Ramsay MD 02/08/2020 1:10 PM Signed This note was created using ClearSlideriter. Subjective Hemant Garcia is a 29 year old female. I am fine Right knee Right hip pain Low back pain right side Hand stiff loss of grasp Morning stiffness is lasting about one to two hours. HS active now in left axilla before that in the left groin New rash finger and hand Never before About one month PCP seen No med used No fever, chills, shortness of breath, severe muscle aches, nausea, vomit or diarrhea. After work right leg does not want to work Cannot get to pick this up Severe pain on the right side Review of Systems Constitutional: Positive for fatigue. Cardiovascular: Negative. Objective Blood Pressure 103/64 (BP Site: Right Arm, BP Position: Sitting) Pulse 93 Temperature 36.8 ?C (98.2 ?F) Height 175.3 cm (5' 9) Weight (Abnormal) 147 kg (324 lb) Body Mass Index 47.85 kg/m? Physical Exam Vitals signs reviewed. Constitutional: Appearance: Normal appearance. Eyes: General: Right eye: No discharge. Left eye: No discharge. Neck: Musculoskeletal: No neck rigidity or muscular tenderness. Cardiovascular: Rate and Rhythm: Normal rate and regular rhythm. Heart sounds: No murmur. No friction rub. Pulmonary: Effort: No respiratory distress. Breath sounds: No stridor. No wheezing or rhonchi. Abdominal: General: There is no distension. Palpations: There is no mass. Tenderness: There is no abdominal tenderness. Hernia: No hernia is present. Musculoskeletal: Right shoulder: Normal. Left shoulder: Normal. Right elbow: Normal. Left elbow: Normal. Right wrist: Normal. Left wrist: Normal. Right hip: Normal. Left hip: Normal. Right knee: Normal. Left knee: Normal. Right ankle: Normal. Left ankle: Normal. Cervical back: Normal. Thoracic back: Normal. Lumbar back: Normal. Right hand: Normal. Left hand: Normal. Right lower leg: No edema. Left lower leg: No edema. Right foot: Normal. Left foot: Normal. Comments: Hidradenitis Suppurativa Left side scarring noted in axilla Rash vesicular mild on the finger noted Tender only on right knee Right plantar fascia area and right Sarcoiliac joint area Skin: Coloration: Skin is not jaundiced or pale. Findings: No bruising or erythema. Neurological: Mental Status: She is alert. Cranial Nerves: No cranial nerve deficit. Sensory: No sensory deficit. Motor: No weakness. Coordination: Coordination normal. Psychiatric: Mood and Affect: Mood normal. Behavior: Behavior normal. Thought Content: Thought content normal. Judgment: Judgment normal. 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 ( no hypermobility noted in exam), exam and history more suggestive of Undifferentiated spondyloarthritis sulfasalazine 1.5 gm Patient explained about the need for regular blood monitoring with this drug, regular clinic visits. Gastrointestinal intolerance issues discussed, can take with food or after food to lessen the chances of same. Hepatic and hematologic toxicity of the drug explained. Rare cases of pancreatitis and hepatitis reported with the drug. Change in the color of the urine explained to patient. Headaches, dizziness also possible, hemolysis possible. Patient understood and verbalized understanding. AMANDA 1:80 homogenous 04/2019 ESR 50 mm RF negative. 05/27 Angiotensin converting enzyme levels normal. 30 . 01/25 uric acid 4.2 mg.dl not clear if connective tissue disease get labs on her. Drug and disease monitoring 04/27 CMP normal Alk phos 143 high 12/2019 CK 78 CRP 17.8 mg/l ( < 6) ESR 17 mm normal cmp alk phos normal Splenomegaly since 2018 ( CT abdomen 2018 18 cm ) ( no symptoms) USG 12/[address] Clark Hematology seen . Hilar lymphadenopathy 04/2019 CT mild enlarged hilar nodes. Also scattered nodular density Pulm Seen Felicity pending work up PFT pending 01/19/2020 no biopsy planned per patient, last follow up 07/2019 6 months follow up planned. Sarcoid can explain most of her finding. Need to get early appt with pulm for now. Leukocytosis 2018 onset. 2019 wbc normal 7900. H/h 12.6/38.4 PLT 308 11/2019 8500 resolved issue 01/19/2020 observe. Chronic neck pain 2020 onset 01/19/2020 observe Chronic low b (more content not included)... Normal [facility] MRI BRAIN W WO CONTRASTon Patient Name: HEMANT PAREDES ---MRI--- Exam Date/Time 12/14/2019 13:38:41 EDT Exam MRI Brain w/ + w/o Contrast Ordering Physician DO ORTEGA PAUL E. Accession Number [id number] CPT4 Codes 00467 () Reason For Exam . Report MRI BRAIN WITH AND WITHOUT CONTRAST CLINICAL INDICATION: Headache Multiplanar, multisequence MR imaging of the brain was performed pre and post administration of gadolinium contrast. COMPARISON: None FINDINGS: The ventricles, sulci, and cisterns are normal in size and configuration for the patient's age. There is no evidence of mass lesion, edema, or hemorrhage. There is no hydrocephalus, midline shift, or herniation. No epidural or subdural collections are present. Periventricular and subcortical white matter appears normal. Diffusion weighted images are negative for acute ischemic change. The hypothalamus and pituitary regions are normal. The brain stem, cerebellum, and craniocervical junction appear normal. The globes and orbital contents are grossly normal. Extensive bilateral maxillary and ethmoid mucosal thickening. The remaining paranasal sinuses and mastoid air cells appear pneumatized. No abnormal post contrast enhancement. IMPRESSION: Extensive bilateral maxillary and ethmoid mucosal thickening which may relate to chronic sinusitis. Otherwise unremarkable MRI of the brain. Report Dictated on --- Final --- Dictated: 12/14/2019 1:45 pm Dictating Physician: MD RODRIGUEZ JASON Signed Date and Time: 12/14/2019 1:50 pm Signed by: MD RODRIGUEZ JASON Transcribed Date and Time: 12/14/2019 1:45 [facility], [place] [facility] Incoming Radiology Results From [facility] - 12/14/2019 1:52 PM EDT Patient Name: HEMANT GARCIA ---MRI--- Exam Date/Time 12/14/2019 13:38:41 EDT Exam MRI Brain w/ + w/o Contrast Ordering Physician DO ORTEGA PAUL E. Accession Number [id number] CPT4 Codes 74783 () Reason For Exam . Report MRI BRAIN WITH AND WITHOUT CONTRAST CLINICAL INDICATION: Headache Multiplanar, multisequence MR imaging of the brain was performed pre and post administration of gadolinium contrast. COMPARISON: None FINDINGS: The ventricles, sulci, and cisterns are normal in size and configuration for the patient's age. There is no evidence of mass lesion, edema, or hemorrhage. There is no hydrocephalus, midline shift, or herniation. No epidural or subdural collections are present. Periventricular and subcortical white matter appears normal. Diffusion weighted images are negative for acute ischemic change. The hypothalamus and pituitary regions are normal. The brain stem, cerebellum, and craniocervical junction appear normal. The globes and orbital contents are grossly normal. Extensive bilateral maxillary and ethmoid mucosal thickening. The remaining paranasal sinuses and mastoid air cells appear pneumatized. No abnormal post contrast enhancement. IMPRESSION: Extensive bilateral maxillary and ethmoid mucosal thickening which may relate to chronic sinusitis. Otherwise unremarkable MRI of the brain. Report Dictated on --- Final --- Dictated: 12/14/2019 1:45 pm Dictating Physician: MD RODRIGUEZ JASON Signed Date and Time: 12/14/2019 1:50 pm Signed by: MD RODRIGUEZ JASON Transcribed Date and Time: 12/14/2019 1:45 [place], [place] MRI Brain w/ + w/o Contrasto n 12-14-2019 MRI Brain w/ + w/o Contrast Patient Name: HEMANT GARCIA MRI Exam Date/Time 12/14/2019 13:38:41 EDT Exam MRI Brain w/ + w/o Contrast Ordering Physician DO ORTEGA PAUL E. Accession Number [id number] CPT4 Codes 48153 () Reason For Exam . Report MRI BRAIN WITH AND WITHOUT CONTRAST CLINICAL INDICATION: Headache Multiplanar, multisequence MR imaging of the brain was performed pre and post administration of gadolinium contrast. COMPARISON: None FINDINGS: The ventricles, sulci, and cisterns are normal in size and configuration for the patient's age. There is no evidence of mass lesion, edema, or hemorrhage. There is no hydrocephalus, midline shift, or herniation. No epidural or subdural collections are present. Periventricular and subcortical white matter appears normal. Diffusion weighted images are negative for acute ischemic change. The hypothalamus and pituitary regions are normal. The brain stem, cerebellum, and craniocervical junction appear normal. The globes and orbital contents are grossly normal. Extensive bilateral maxillary and ethmoid mucosal thickening. The remaining paranasal sinuses and mastoid air cells appear pneumatized. No abnormal post contrast enhancement. IMPRESSION: Extensive bilateral maxillary and ethmoid mucosal thickening which may relate to chronic sinusitis. Otherwise unremarkable MRI of the brain. Report Dictated on Final Dictated: 12/14/2019 1:45 pm Dictating Physician: MD RODRIGUEZ JASON Signed Date and Time: 12/14/2019 1:50 pm Signed by: MD RODRIGUEZ JASON Transcribed Date and Time: 12/14/2019 1:45 Normal [facility] CR Spine Lumbosacral 2 or 3 Viewson 12-01-2019 CR Spine Lumbosacral 2 or 3 Views Patient Name: HEMANT GARCIA Diagnostic Radiology Exam Date/Time 12/01/2019 19:25:00 EDT Exam CR Spine Lumbosacral 2 or 3 Views Ordering Physician MD JACQUI, ALESSANDRA Accession Number [id number] CPT4 Codes 47036 () Reason For Exam injury Report Indication: Injury. AP and lateral views of the lumbar spine are compared to the study dated 04/13/2018. Five lumbar type vertebral bodies are visualized. There is a new mild levoconvex scoliosis. The vertebral heights and alignments are maintained. There is no evidence of an acute compression fracture or traumatic subluxation. The intervertebral disc spaces are fairly well-maintained. Small anterior endplate osteophytes arise from the inferior endplate of L1 and superior endplate of L3, similar to the prior study. The pedicles are intact. IMPRESSION: 1. No evidence of an acute compression fracture or traumatic subluxation. New mild scoliosis. Report Dictated on Final Dictating Physician: DO BRUNETT ANTHONY Signed Date and Time: 12/01/2019 7:41 pm Signed by: DO BURNETT ANTHONY Transcribed Date and Time: 12/01/2019 7:42 Normal [facility] XR LUMBAR SPINE (2-3 VIEWS)o n 12-01-2019 Patient Name: HEMANT PAREDES ---Diagnostic Radiology--- Exam Date/Time 12/01/2019 19:25:00 EDT Exam CR Spine Lumbosacral 2 or 3 Views Ordering Physician MD JACQUI ALESSANDRA Accession Number [id number] CPT4 Codes 15721 () Reason For Exam injury Report Indication: Injury. AP and lateral views of the lumbar spine are compared to the study dated 04/13/2018. Five lumbar type vertebral bodies are visualized. There is a new mild levoconvex scoliosis. The vertebral heights and alignments are maintained. There is no evidence of an acute compression fracture or traumatic subluxation. The intervertebral disc spaces are fairly well-maintained. Small anterior endplate osteophytes arise from the inferior endplate of L1 and superior endplate of L3, similar to the prior study. The pedicles are intact. IMPRESSION: 1. No evidence of an acute compression fracture or traumatic subluxation. New mild scoliosis. Report Dictated on --- Final --- Dictating Physician: DO BURNETT ANTHONY Signed Date and Time: 12/01/2019 7:41 pm Signed by: DO BURNETT ANTHONY Transcribed Date and Time: 12/01/2019 7:42 [facility]- [place], [place], [facility] Incoming Radiology Results From [facility] - 12/01/2019 7:42 PM EDT Patient Name: HEMANT GARCIA ---Diagnostic Radiology--- Exam Date/Time 12/01/2019 19:25:00 EDT Exam CR Spine Lumbosacral 2 or 3 Views Ordering Physician MD JACQUI [facility] Accession Number [id number] CPT4 Codes 16208 () Reason For Exam injury Report Indication: Injury. AP and lateral views of the lumbar spine are compared to the study dated 04/13/2018. Five lumbar type vertebral bodies are visualized. There is a new mild levoconvex scoliosis. The vertebral heights and alignments are maintained. There is no evidence of an acute compression fracture or traumatic subluxation. The intervertebral disc spaces are fairly well-maintained. Small anterior endplate osteophytes arise from the inferior endplate of L1 and superior endplate of L3, similar to the prior study. The pedicles are intact. IMPRESSION: 1. No evidence of an acute compression fracture or traumatic subluxation. New mild scoliosis. Report Dictated on --- Final --- Dictating Physician: DO BURNETT ANTHONY Signed Date and Time: 12/01/2019 7:41 pm Signed by: DO BURNETT ANTHONY Transcribed Date and Time: 12/01/2019 7:42 [place], [place] C-Reactive Proteinon 020 CRP [Mass/Vol] 13.2 mg/L High 0.0-6.0 [facility] Comment on above: Result Comment: . Performed By: #### H MENDEZ AMES3 #### [facility] [address] [place] [address] CRP [Mass/Vol] 13.2 mg/L High 0 - 6 mg/L [place], [place] Comment on above: . CKon 11-11-2019 CK [Catalytic activity/Vol] 78 U/L Normal 30-170 [facility] Comment on above: Performed By: #### H KWAKU CMP3 #### [facility] [address] [place] [address] Total CK 78 U/L 30 - 170 U/L [place], [place] CR Chest PA/LATon 11-11-2019 CR Chest PA/LAT Patient Name: HEMANT PAREDES Diagnostic Radiology Exam Date/Time 11/11/2019 20:07:34 EDT Exam CR Chest PA/LAT Ordering Physician MD SARITA, [facility] Accession Number [id number] CPT4 Codes 99693 () Reason For Exam sob Report CHEST X-RAY TWO VIEWS CLINICAL INDICATION: sob TECHNIQUE: Frontal and lateral views of the chest. COMPARISON: 04/20/2019 FINDINGS: Lungs are show no significant consolidation. No pleural effusion or pneumothorax. No vascular congestion. Heart size normal. IMPRESSION: 1. No acute finding. Report Dictated on Final Dictating Physician: MD GOVEA JOHN R Signed Date and Time: 11/11/2019 8:15 pm Signed by: MD GOVEA JOHN R Transcribed Date and Time: 11/11/2019 8:16 Normal [facility] Comp Metabolic Panelon 11-10 Calcium [Mass/Vol] 8.9 mg/dL Normal 8.4-10.4 [facility] Comment on above: Performed By: #### H KWAKU CMP3 #### [facility] [address] [place] [address] ALP [Catalytic activity/Vol] 85 U/L Normal 38-126 [facility] Comment on above: Performed By: #### H KWAKU CMP3 #### [facility] [address] [place] [address] ALT [Catalytic activity/Vol] 20 U/L Normal 0-34 [facility] Comment on above: Result Comment: The ALT test is performed by an updated assay method. Please note that the reference intervals have been changed and are now sex specific. Performed By: #### H KWAKU CMP3 #### [facility] [address] [place] [address] Anion gap [Moles/Vol] 8 Normal [facility] Comment on above: Performed By: #### H KWAKU CMP3 #### [facility] [address] [place] [address] AST [Catalytic activity/Vol] 26 U/L Normal 15-46 [facility] Comment on above: Performed By: #### H KWAKU CMP3 #### [facility] [address] [place] [address] Bilirubin [Mass/Vol] 0.1 mg/dL Low 0.2-1.3 [facility] Comment on above: Performed By: #### Cuate AMES CMP3 #### [facility] [address] [place] [address] CO2 [Moles/Vol] 25 mmol/L Normal 22-30 [facility] Comment on above: Performed By: #### Cuate AMES CMP3 #### [facility] [address] [place] [address] Glucose [Mass/Vol] 88 mg/dL Normal 70-100 [facility] Comment on above: Performed By: #### Cuate AMES CMP3 #### [facility] [address] [place] [address] Protein [Mass/Vol] 7.2 g/dL Normal 6.3-8.2 [facility] Comment on above: Performed By: #### Cuate AMES CMP3 #### [facility] [address] [place] [address] Urea nitrogen [Mass/Vol] 13 mg/dL Normal 7-20 [facility] Comment on above: Performed By: #### Cuate AMES CMP3 #### [facility] [address] [place] [address] Creatinine [Mass/Vol] 0.95 mg/dL Normal 0.52-1.25 [facility] Comment on above: Performed By: #### Cuate AMES CMP3 #### [facility] [address] [place] [address] GFR/1.73 sq M predicted among blacks MDRD (S/P/Bld) [Vol rate/Area] mL/min/{1.73_m2} Normal >60 [facility] Comment on above: Performed By: #### Cuate AMES CMP3 #### [facility] [address] [place] [address] GFR/1.73 sq M predicted among non-blacks MDRD (S/P/Bld) [Vol rate/Area] mL/min/{1.73_m2} Normal >60 [facility] Comment on above: Result Comment: Sour ce- MDRD equation with creatinine calibration to IDMS(NKDEP) eGFR not recommended for drug dose adjustment Performed By: #### H EMOG, CMP3 #### [facility] [address] [place] [address] Albumin [Mass/Vol] 4.1 g/dL Normal 3.5-5.0 [facility] Comment on above: Performed By: #### H EMOG, CMP3 #### [facility] [address] [place] [address] Potassium [Moles/Vol] 4.0 mmol/L Normal 3.5-5.1 [facility] Comment on above: Performed By: #### H EMOG, CMP3 #### [facility] [address] [place] [address] Sodium [Moles/Vol] 138 mmol/L Normal 135-145 [facility] Comment on above: Performed By: #### H EMOG, CMP3 #### [facility] [address] [place] [address] Chloride [Moles/Vol] 105 mmol/L Normal 98-107 [facility] Comment on above: Performed By: #### H EMOG, CMP3 #### [facility] [address] [place] [address] Comprehensive Metabolic Pane mike 11-11-2019 Albumin [Mass/Vol] 4.1 g/dL 3.5 - 5 g/dL [place], [place] Comment on above: Test Performed by [facility], [address] , [place] [address] ALP [Catalytic activity/Vol] 85 U/L 38 - 126 U/L [place], [place] Comment on above: Test Performed by [facility], [address] , [place] [address] ALT [Catalytic activity/Vol] 20 U/L 0 - 34 U/L [place], [place] Comment on above: Test Performed by [facility], [address] , [place] [address] The ALT test is performed by an updated assay method. Please note that the reference intervals have been changed and are now sex specific. Anion gap [Moles/Vol] 8 mmol/L [place], [place] Comment on above: Test Performed by [facility], [address] , [place] [address] AST [Catalytic activity/Vol] 26 U/L 15 - 46 U/L [facility], [place] Comment on above: Test Performed by [facility], [address] , [place] [address] Bilirubin Ql (U) 0.1 mg/dL Low 0.2 - 1.3 mg/dL [facility], [place] Comment on above: Test Performed by [facility], [address] , [place] [address] Calcium [Mass/Vol] 8.9 mg/dL 8.4 - 10. 4 mg/dL [facility], [place] Comment on above: Test Performed by [facility], [address] , [place] [address] Chloride [Moles/Vol] 105 mmol/L 98 - 10 7 mmol/L [facility], [place] Comment on above: Test Performed by [facility], [address] , [place] [address] CO2 [Moles/Vol] 25 mmol/L 22 - 30 mmol/L [facility], [place] Comment on above: Test Performed by [facility], [address] , [place] [address] Creatinine [Mass/Vol] 0.95 mg/dL 0.52 - 1.25 mg/dL [facility], [place] Comment on above: Test Performed by [facility], [address] , [place] [address] EGFR IF NonAfrican Micronesian >60.0 >60 mL/min [facility], [place] Comment on above: Test Performed by [facility], [address] , [place] [address] Source- MDRD equation with creatinine calibration to IDMS(NKDEP) eGFR not recommended for drug dose adjustment GFR/1.73 sq M predicted among blacks MDRD (S/P/Bld) [Vol rate/Area] mL/min/{1.73_m2} >60 mL/min [facility], [place] Comment on above: Test Performed by [facility], [address] , [place], [place] [address] Glucose [Mass/Vol] 88 mg/dL 70 - 100 mg/dL [place], [place] Comment on above: Test Performed by [facility], [address] , [place], [place] [address] Potassium [Moles/Vol] 4.0 mmol/L 3.5 - 5.1 mmol/L [place], [place] Comment on above: Test Performed by [facility], [address] , [place], [place] [address] Protein [Mass/Vol] 7.2 g/dL 6.3 - 8.2 g/dL [place], [place] Comment on above: Test Performed by [facility], [address] , [place] [address] Sodium [Moles/Vol] 138 mmol/L 135 - 145 mmol/L [place], [place] Urea nitrogen [Mass/Vol] 13 mg/dL 7 - 20 mg/dL [place], [place] Comment on above: Test Performed by [facility], [address] , [place] [address] Ferritinon 11-11-2019 Ferritin [Mass/Vol] 10 ng/mL Normal 8-252 [facility] Comment on above: Performed By: #### H [facility] #### [facility] [address] [place] [address] Ferritin [Mass/Vol] 10 ng/mL 8 - 252 ng/mL [place], [place] Test Performed by [facility], [address] , [address] Hemogram (CBC) w/Auto Diffon 11-11-2019 Absolute Baso # 0.0 10*3/uL 0 - 0.2 10*3/uL [place], [place] Comment on above: Test Performed by [facility], [address] , [place] [address] Absolute Neut # 5.8 10*3/uL 1.8 - 7 10*3/uL [place], [place] Comment on above: Test Performed by [facility], [address] , [place] [address] Basophils/100 WBC (Bld) 0.6 % 0 - 2 % [place], [place] Comment on above: Test Performed by [facility], [address] , [place], [place] [address] Eosinophils (Bld) [#/Vol] 0.2 10*3/uL 0 - 0.5 10*3/uL [place], [place] Comment on above: Test Performed by [facility], [address] , [place], [place] [address] Eosinophils/100 WBC (Bld) 1.8 % 1 - 6 % [place], [place] Comment on above: Test Performed by [facility], [address] , [place], [place] [address] Erythrocyte distribution width (RBC) [Ratio] 16.7 % High 11.5 - 14.5 % [place], [place] Comment on above: Test Performed by [facility], [address] , [place], [place] [address] Granulocytes/100 WBC (Bld) 68.2 % 40 - 80 % [place], [place] Comment on above: Test Performed by [facility], [address] , [place], [place] [address] Hematocrit (Bld) [Volume fraction] 36.2 % 35 - 47 % [place], [place] Comment on above: Test Performed by [facility], [address] , [place], [place] [address] Hemoglobin (Bld) [Mass/Vol] 12.1 g/dL 11.7 - 16 g/dL [place], [place] Comment on above: Test Performed by [facility], [address] , [place], [place] [address] Interpretation and review of laboratory results Abnormal [place], [place] Lymphocytes (Bld) [#/Vol] 1.9 10*3/uL 1 - 4.3 10*3/uL [place], [place] Comment on above: Test Performed by [facility], [address] , [place], [place] [address] Lymphocytes/100 WBC (Bld) 21.9 % 20 - 40 % [place], [place] Comment on above: Test Performed by [facility], [address] , [place], [place] [address] MCH (RBC) [Entitic mass] 25.6 pg Low 26 - 34 pg [place], [place] Comment on above: Test Performed by [facility], [address] , [place], [place] [address] MCHC (RBC) [Mass/Vol] 33.3 % 32 - 36 % [place], [place] Comment on above: Test Performed by [facility], [address] , [place], [place] [address] MCV (RBC) [Entitic vol] 76.9 fL Low 79 - 98 fL [place], [place] Comment on above: Test Performed by [facility], [address] , [place], [place] [address] Monocytes (Bld) [#/Vol] 0.6 10*3/uL 0 - 0.8 10*3/uL [place], [place] Comment on above: Test Performed by [facility], [address] , [place], [place] [address] Monocytes/100 WBC (Bld) 7.5 % 2 - 10 % [place], [place] Comment on above: Test Performed by [facility], [address] , [place], [place] [address] Platelet mean volume (Bld) [Entitic vol] 8.7 fL 7.4 - 10.4 fL [place], [place] Comment on above: Test Performed by [facility], [address] , [place], [place] [address] Platelets (Bld) [#/Vol] 237 10*3/uL 140 - 440 10*3/uL [place], [place] Comment on above: Test Performed by [facility], [address] , [place], [place] [address] RBC (Bld) [#/Vol] 4.71 10*6/uL 3.8 - 5.2 10*6/uL [place], [place] Comment on above: Test Performed by [facility], [address] , [place], [place] [address] WBC (Bld) [#/Vol] 8.5 10*3/uL 3.6 - 10.7 10*3/uL [place], [place] Test Performed by [facility], [address] , [place], [place] [address] [facility] [place], [place] Hemogram w/ Autodiffon 11-10 Abs Baso Cnt 0.0 10*3/uL Normal 0.0-0.2 [facility] Comment on above: Performed By: #### Cuate AMES CMP3 #### [facility] [address] [place] [address] Abs Neutrophile Cnt 5.8 10*3/uL Normal 1.8-7.0 [facility] Comment on above: Performed By: #### Cuate AMES CMP3 #### [facility] [address] [place] [address] Basophils/100 WBC (Bld) 0.6 % Normal 0.0-2.0 [facility] Comment on above: Performed By: #### Cuate AMES CMP3 #### [facility] [address] [place] [address] Eosinophils (Bld) [#/Vol] 0.2 10*3/uL Normal 0.0-0.5 [facility] Comment on above: Performed By: #### Cuate AMES CMP3 #### [facility] [address] [place] [address] Eosinophils/100 WBC (Bld) 1.8 % Normal 1.0-6.0 [facility] Comment on above: Performed By: #### Cuate AMES CMP3 #### [facility] [address] [place] [address] Erythrocyte distribution width (RBC) [Ratio] 16.7 % High 11.5-14.5 [facility] Comment on above: Performed By: #### Cuate AMES CMP3 #### [facility] [address] [place] [address] Granulocytes/100 WBC (Bld) 68.2 % Normal 40.0-80.0 [facility] Comment on above: Performed By: #### Cuate AMES CMP3 #### [facility] [address] [place] [address] Hematocrit (Bld) [Volume fraction] 36.2 % Normal 35.0-47.0 [facility] Comment on above: Performed By: #### Cuate AMES CMP3 #### [facility] [address] [place] [address] Hemoglobin (Bld) [Mass/Vol] 12.1 g/dL Normal 11.7-16.0 [facility] Comment on above: Performed By: #### Cuate AMES CMP3 #### [facility] [address] [place] [address] Lymphocytes (Bld) [#/Vol] 1.9 10*3/uL Normal 1.0-4.3 [facility] Comment on above: Performed By: #### H KWAKU CMP3 #### [facility] [address] [place] [address] Lymphocytes/100 WBC (Bld) 21.9 % Normal 20.0-40.0 [facility] Comment on above: Performed By: #### H KWAKU CMP3 #### [facility] [address] [place] [address] MCH (RBC) [Entitic mass] 25.6 pg Low 26.0-34.0 [facility] Comment on above: Performed By: #### Cuate AMES CMP3 #### [facility] [address] [place] [address] MCHC (RBC) [Mass/Vol] 33.3 % Normal 32.0-36.0 [facility] Comment on above: Performed By: #### Cuate AMES CMP3 #### [facility] [address] [place] [address] MCV (RBC) [Entitic vol] 76.9 fL Low 79.0-98.0 [facility] Comment on above: Performed By: #### Cuate AMES CMP3 #### [facility] [address] [place] [address] Monocytes (Bld) [#/Vol] 0.6 10*3/uL Normal 0.0-0.8 [facility] Comment on above: Performed By: #### H KWAKU CMP3 #### [facility] [address] [place] [address] Monocytes/100 WBC (Bld) 7.5 % Normal 2.0-10.0 [facility] Comment on above: Performed By: #### Cuate AMES CMP3 #### [facility] [address] [place] [address] Platelet mean volume (Bld) [Entitic vol] 8.7 fL Normal 7.4-10.4 [facility] Comment on above: Performed By: #### Cuate AMES CMP3 #### [facility] [address] [place] [address] Platelets (Bld) [#/Vol] 237 10*3/uL Normal 140-440 [facility] Comment on above: Performed By: #### H KWAKU CMP3 #### [facility] [address] [place] [address] RBC (Bld) [#/Vol] 4.71 10*6/uL Normal 3.80-5.20 [facility] Comment on above: Performed By: #### H KWAKU CMP3 #### [facility] [address] [place] [address] WBC (Bld) [#/Vol] 8.5 10*3/uL Normal 3.6-10.7 [facility] Comment on above: Performed By: #### Cuate AMES CMP3 #### [facility] [address] [place] [address] LDHon 11-11-2019 LDH 152 U/L Normal 50-170 [facility] Comment on above: Performed By: #### Cuate AMES CMP3 #### [facility] [address] [place] [address] Lactate Dehydrogenaseon LD 152 U/L 50 - 170 U/L [place], [place] Test Performed by [facility], [address] [place] [address] Rd. [place], [place] [id number] [place] [address] Lactic Acidon 11-11-2019 Lactate [Moles/Vol] 0.6 mmol/L Low 0.7-2.0 [facility] Comment on above: Performed By: #### H KWAKU CMP3 #### [facility] [address] [place] [address] Lactic Acid, Plasmaon 2019 Interpretation and review of laboratory results Abnormal [place], [place] Lactate [Moles/Vol] 0.6 mmol/L Low 0.7 - 2 mmol/L [facility], [address] , [place], [place] [address] [place], [place] [address]ANT[place] Otheron 11-11-2019 Interpretation and review of laboratory results Abnormal [facility]formed by [facility], [address] , [place], [place] [address] [facility] CHEST STANDARD (2 VW)on 0 11-11-2019 Patient Name: HEMANT PAREDES ---Diagnostic Radiology--- Exam Date/Time 11/11/2019 20:07:34 EDT Exam CR Chest PA/LAT Ordering Physician MD SARITA, ALONSO Accession Number [id number] CPT4 Codes 14943 () Reason For Exam sob Report CHEST X-RAY TWO VIEWS CLINICAL INDICATION: sob TECHNIQUE: Frontal and lateral views of the chest. COMPARISON: 04/20/2019 FINDINGS: Lungs are show no significant consolidation. No pleural effusion or pneumothorax. No vascular congestion. Heart size normal. IMPRESSION: 1. No acute finding. Report Dictated on --- Final --- Dictating Physician: MD GOVEA JOHN R Signed Date and Time: 11/11/2019 8:15 pm Signed by: MD GOVEA JOHN R Transcribed Date and Time: 11/11/2019 8:16 [place], [place] [facility] Incoming Radiology Results From [facility] - 11/11/2019 8:16 PM EDT Patient Name: HEMANT GARCIA ---Diagnostic Radiology--- Exam Date/Time 11/11/2019 20:07:34 EDT Exam CR Chest PA/LAT Ordering Physician MD STEIN NISHIT Accession Number [id number] CPT4 Codes 87705 () Reason For Exam sob Report CHEST X-RAY TWO VIEWS CLINICAL INDICATION: sob TECHNIQUE: Frontal and lateral views of the chest. COMPARISON: 04/20/2019 FINDINGS: Lungs are show no significant consolidation. No pleural effusion or pneumothorax. No vascular congestion. Heart size normal. IMPRESSION: 1. No acute finding. Report Dictated on --- Final --- Dictating Physician: MD GOVEA JOHN R Signed Date and Time: 11/11/2019 8:15 pm Signed by: MD GOVEA JOHN R Transcribed Date and Time: 11/11/2019 8:16 [facility], [place] Basic Metabolic Panelon - Anion gap [Moles/Vol] 12 Normal [facility] Comment on above: Performed By: #### C UA2 #### [facility] [address] [place] [address] Calcium [Mass/Vol] 9.5 mg/dL Normal 8.4-10.4 [facility] Comment on above: Performed By: #### C UA2 #### [facility] [address] [place] [address] CO2 [Moles/Vol] 23 mmol/L Normal 22-30 [facility] Comment on above: Performed By: #### C UA2 #### [facility] [address] [place] [address] Glucose [Mass/Vol] 95 mg/dL Normal 70-100 [facility] Comment on above: Performed By: #### C UA2 #### [facility] [address] [place] [address] Urea nitrogen [Mass/Vol] 12 mg/dL Normal 7-20 [facility] Comment on above: Performed By: #### C UA2 #### [facility] [address] [place] [address] Creatinine [Mass/Vol] 1.03 mg/dL Normal 0.52-1.25 [facility] Comment on above: Performed By: #### C UA2 #### [facility] [address] [place] [address] GFR/1.73 sq M predicted among blacks MDRD (S/P/Bld) [Vol rate/Area] mL/min/{1.73_m2} Normal >60 [facility] Comment on above: Performed By: #### C UA2 #### [facility] [address] [place] [address] GFR/1.73 sq M predicted among non-blacks MDRD (S/P/Bld) [Vol rate/Area] mL/min/{1.73_m2} Normal >60 [facility] Comment on above: Result Comment: Sour ce- MDRD equation with creatinine calibration to IDMS(NKDEP) eGFR not recommended for drug dose adjustment Performed By: #### C UA2 #### [facility] [address] [place] [address] Chloride [Moles/Vol] 107 mmol/L Normal 98-107 [facility] Comment on above: Performed By: #### C UA2 #### [facility] [address] [place] [address] Potassium [Moles/Vol] 3.9 mmol/L Normal 3.5-5.1 [facility] Comment on above: Performed By: #### C UA2 #### [facility] [address] [place] [address] Sodium [Moles/Vol] 142 mmol/L Normal 135-145 [facility] Comment on above: Performed By: #### C UA2 #### [facility] [address] [place] [address] Anion gap [Moles/Vol] 12 mmol/L [place], [place] Calcium [Mass/Vol] 9.5 mg/dL 8.4 - 10. 4 mg/dL [place], [place] Chloride [Moles/Vol] 107 mmol/L 98 - 10 7 mmol/L [place] CO2 [Moles/Vol] 23 mmol/L 22 - 30 mmol/L [place] Creatinine [Mass/Vol] 1.03 mg/dL 0.52 - 1.25 mg/dL [place], [place] EGFR IF NonAfrican Micronesian >60.0 >60 mL/min [place], [place] Comment on above: Source- MDRD equatio n with creatinine calibration to IDMS(NKDEP) eGFR not recommended for drug dose adjustment GFR/1.73 sq M predicted among blacks MDRD (S/P/Bld) [Vol rate/Area] mL/min/{1.73_m2} >60 mL/min [place], [place] Glucose [Mass/Vol] 95 mg/dL 70 - 100 mg/dL [place], [place] Potassium [Moles/Vol] 3.9 mmol/L 3.5 - 5.1 mmol/L [place] Sodium [Moles/Vol] 142 mmol/L 135 - 145 mmol/L [place] Urea nitrogen [Mass/Vol] 12 mg/dL 7 - 20 mg/dL [place], [place] Test Performed by [facility], [address] , [address] CR Chest PA/LATon 04-20-2019 CR Chest PA/LAT Patient Name: HEMANT PAREDES Diagnostic Radiology Exam Date/Time 04/20/2019 19:29:54 EDT Exam CR Chest PA/LAT Ordering Physician MD OSMAN VIJAY Accession Number [id number] CPT4 Codes 40291 () Reason For Exam cough Report PA and lateral views of the chest, 04/20/2019. Reason for examination: Cough. COMPARISON: April 16, 2016. FINDINGS: Cardiac size is within normal limits. Pulmonary vasculature is normal. The lungs are free of infiltrate. No pleural effusion or pneumothorax is identified. Osseous structures appear grossly intact. IMPRESSION: No acute cardiopulmonary disease detected. Report Dictated on Final Dictating Physician: MD HESS JOE M Signed Date and Time: 04/20/2019 7:34 pm Signed by: MD HESS JOE M Transcribed Date and Time: 04/20/2019 7:[address] [facility] [address] Abdomen Pelvis W Contrast on 04-20-2019 [place], [facility] Incoming Radiology Results From [facility] - 04/20/2019 9:23 PM EDT Patient Name: HEMANT GARCIA ---CT--- Exam Date/Time 04/20/2019 21:05:[address] Abdomen/Pelvis w/ IV Contrast (IV Onl Ordering Physician CHEKO REYNOLDS Accession Number [id number] CPT4 Codes 53537 (CT Abdomen/Pelvis w/ IV Contrast (IV Onl) Reason For Exam PAIN, PELVIS Report CT ABDOMEN AND PELVIS WITH CONTRAST CLINICAL INDICATION: PAIN, PELVIS TECHNIQUE: CT scan of the abdomen and pelvis, with IV contrast. Multiplanar reformations. COMPARISON: February,. FINDINGS: Abdomen: Visualized lung bases grossly unremarkable. No radiopaque gallstones. Liver without significant abnormality. Spleen enlarged measuring approximately 17.5 cm in maximal craniocaudal dimension about the same, without focal abnormality. Pancreas without significant abnormality. Kidneys without significant abnormality. Adrenal glands without significant abnormality. Pelvis: Prominent, uterus. Somewhat lobular low-density fluid attenuation focus in the anterior pelvic wall subcutaneous tissues measuring approximately 11 x 2 x 6 cm without significant wall thickening or rim enhancement. Bowel grossly unremarkable. Appendix within normal limits. No significant, free peritoneal fluid or apparent adenopathy. Abdominal aorta is nonaneurysmal. Axial skeleton grossly intact. IMPRESSION: 1. uterus and findings which may represent postsurgical change or residual in the anterior pelvic wall subcutaneous tissues, including nonspecific fluid focus or seroma. 2. Splenomegaly. Report Dictated on --- Final --- Dictating Physician: MD FLOR WENDELL Signed Date and Time: 04/20/2019 9:22 pm Signed by: MD FLOR WENDELL Transcribed Date and Time: 04/20/2019 9:23 [place], [place] Patient Name: HEMANT PAREDES ---CT--- Exam Date/Time 04/20/2019 21:05:[address] Abdomen/Pelvis w/ IV Contrast (IV Onl Ordering Physician CHEKO REYNOLDS Accession Number [id number] CPT4 Codes 40182 (CT Abdomen/Pelvis w/ IV Contrast (IV Onl) Reason For Exam PAIN, PELVIS Report CT ABDOMEN AND PELVIS WITH CONTRAST CLINICAL INDICATION: PAIN, PELVIS TECHNIQUE: CT scan of the abdomen and pelvis, with IV contrast. Multiplanar reformations. COMPARISON: February,. FINDINGS: Abdomen: Visualized lung bases grossly unremarkable. No radiopaque gallstones. Liver without significant abnormality. Spleen enlarged measuring approximately 17.5 cm in maximal craniocaudal dimension about the same, without focal abnormality. Pancreas without significant abnormality. Kidneys without significant abnormality. Adrenal glands without significant abnormality. Pelvis: Prominent, uterus. Somewhat lobular low-density fluid attenuation focus in the anterior pelvic wall subcutaneous tissues measuring approximately 11 x 2 x 6 cm without significant wall thickening or rim enhancement. Bowel grossly unremarkable. Appendix within normal limits. No significant, free peritoneal fluid or apparent adenopathy. Abdominal aorta is nonaneurysmal. Axial skeleton grossly intact. IMPRESSION: 1. uterus and findings which may represent postsurgical change or residual in the anterior pelvic wall subcutaneous tissues, including nonspecific fluid focus or seroma. 2. Splenomegaly. Report Dictated on --- Final --- Dictating Physician: MD FLOR WENDELL Signed Date and Time: 04/20/2019 9:22 pm Signed by: MD FLOR WENDELL Transcribed Date and Time: 04/20/2019 9:23 [place] CT Abdomen/Pelvis w/ Contras ton 04-20-2019 CT Abdomen/Pelvis w/ Contrast Patient Name: HEMANT GARCIA CT Exam Date/Time 04/20/2019 21:05:[address] Abdomen/Pelvis w/ IV Contrast (IV Onl Ordering Physician CHEKO REYNOLDS Accession Number [id number] CPT4 Codes 94954 (CT Abdomen/Pelvis w/ IV Contrast (IV Onl) Reason For Exam PAIN, PELVIS Report CT ABDOMEN AND PELVIS WITH CONTRAST CLINICAL INDICATION: PAIN, PELVIS TECHNIQUE: CT scan of the abdomen and pelvis, with IV contrast. Multiplanar reformations. COMPARISON: February,. FINDINGS: Abdomen: Visualized lung bases grossly unremarkable. No radiopaque gallstones. Liver without significant abnormality. Spleen enlarged measuring approximately 17.5 cm in maximal craniocaudal dimension about the same, without focal abnormality. Pancreas without significant abnormality. Kidneys without significant abnormality. Adrenal glands without significant abnormality. Pelvis: Prominent, uterus. Somewhat lobular low-density fluid attenuation focus in the anterior pelvic wall subcutaneous tissues measuring approximately 11 x 2 x 6 cm without significant wall thickening or rim enhancement. Bowel grossly unremarkable. Appendix within normal limits. No significant, free peritoneal fluid or apparent adenopathy. Abdominal aorta is nonaneurysmal. Axial skeleton grossly intact. IMPRESSION: 1. uterus and findings which may represent postsurgical change or residual in the anterior pelvic wall subcutaneous tissues, including nonspecific fluid focus or seroma. 2. Splenomegaly. Report Dictated on Final Dictating Physician: MD FLOR WENDELL Signed Date and Time: 04/20/2019 9:22 pm Signed by: MD FLOR WENDELL Transcribed Date and Time: 04/20/2019 9:23 Normal [facility] CTA Chest W WO (PE study)on 04-20-2019 [place], [facility] Incoming Radiology Results From [facility] - 04/20/2019 9:19 PM EDT Patient Name: HEMANT GARCIA ---CT--- Exam Date/Time 04/20/2019 21:04:44 EDT Exam CTA Chest w/ + w/o Contrast Ordering Physician CHEKO REYNOLDS Accession Number [id number] CPT4 Codes 48971 (), Q9967 (CT ISOVUE 370MG/ML&[id number]&ML& 1) Reason For Exam SHORTNESS OF BREATH PRODUCED BY EXERTION OR STRESS Report CTA CHEST WITH CONTRAST CLINICAL INDICATION: Shortness of breath , recent section Serial axial CT images were obtained from the lung apices through the upper abdomen after a bolus tracked intravenous contrast injection over the pulmonary arteries. 75 cc of Isovue 370 contrast was given intravenously. Three-dimensional and surface-shaded reconstructions were performed by myself on a separate workstation at the time of dictation. COMPARISON: Chest x-ray performed earlier the same day. CT abdomen and pelvis dated 03/06/2019 FINDINGS: No filling defects are seen within the pulmonary vasculature to suggest the presence of pulmonary embolism. No focal consolidation is seen within the lungs. There is no pleural effusion or pneumothorax. There are small, scattered patchy nodular densities within the right middle lobe and to a lesser extent within the right lung base. There is a more well-defined noncalcified nodule within the right lower lobe on axial image 196 of 315 which measures 8 mm in diameter. No axillary lymphadenopathy is identified. There are borderline enlarged bilateral hilar lymph nodes. No mediastinal lymphadenopathy is seen. Heart size is within normal limits. The thoracic aorta appears normal in caliber. The visualized portion of the upper abdomen is unremarkable. No lytic or blastic lesions are seen on the bone windows. IMPRESSION: No evidence of pulmonary embolism. Irregular, scattered nodular densities predominantly within the right middle lobe, suggestive of an inflammatory or infectious etiology. There are also a few, small scattered irregular nodules within the medial right lung base. There is a more well-defined 8 mm noncalcified nodule at the left lung base. This was not present on a prior CT of the abdomen and pelvis from 03/06/2018. Mildly enlarged bilateral hilar lymph nodes. These are nonspecific and may be reactive. Follow-up CT of the chest in approximately three months is recommended to ensure stability or resolution of the nodular densities. Report Dictated on --- Final --- Dictating Physician: MD BENJAMIN JONATHAN R Signed Date and Time: 04/20/2019 9:18 pm Signed by: MD BENJAMIN JONATHAN R Transcribed Date and Time: 04/20/2019 9:19 [place] Patient Name: HEMANT PAREDES ---CT--- Exam Date/Time 04/20/2019 21:04:44 EDT Exam CTA Chest w/ + w/o Contrast Ordering Physician CHEKO REYNOLDS Accession Number [id number] CPT4 Codes 60771 (), Q9967 (CT ISOVUE 370MG/ML&[id number]&ML& 1) Reason For Exam SHORTNESS OF BREATH PRODUCED BY EXERTION OR STRESS Report CTA CHEST WITH CONTRAST CLINICAL INDICATION: Shortness of breath , recent section Serial axial CT images were obtained from the lung apices through the upper abdomen after a bolus tracked intravenous contrast injection over the pulmonary arteries. 75 cc of Isovue 370 contrast was given intravenously. Three-dimensional and surface-shaded reconstructions were performed by myself on a separate workstation at the time of dictation. COMPARISON: Chest x-ray performed earlier the same day. CT abdomen and pelvis dated 03/06/2019 FINDINGS: No filling defects are seen within the pulmonary vasculature to suggest the presence of pulmonary embolism. No focal consolidation is seen within the lungs. There is no pleural effusion or pneumothorax. There are small, scattered patchy nodular densities within the right middle lobe and to a lesser extent within the right lung base. There is a more well-defined noncalcified nodule within the right lower lobe on axial image 196 of 315 which measures 8 mm in diameter. No axillary lymphadenopathy is identified. There are borderline enlarged bilateral hilar lymph nodes. No mediastinal lymphadenopathy is seen. Heart size is within normal limits. The thoracic aorta appears normal in caliber. The visualized portion of the upper abdomen is unremarkable. No lytic or blastic lesions are seen on the bone windows. IMPRESSION: No evidence of pulmonary embolism. Irregular, scattered nodular densities predominantly within the right middle lobe, suggestive of an inflammatory or infectious etiology. There are also a few, small scattered irregular nodules within the medial right lung base. There is a more well-defined 8 mm noncalcified nodule at the left lung base. This was not present on a prior CT of the abdomen and pelvis from 03/06/2018. Mildly enlarged bilateral hilar lymph nodes. These are nonspecific and may be reactive. Follow-up CT of the chest in approximately three months is recommended to ensure stability or resolution of the nodular densities. Report Dictated on --- Final --- Dictating Physician: MD BENJAMIN JONATHAN R Signed Date and Time: 04/20/2019 9:18 pm Signed by: MD BENJAMIN JONATHAN R Transcribed Date and Time: 04/20/2019 9:19 [place] CTA Chest w/ + w/o Contrasto n 04-20-2019 CTA Chest w/ + w/o Contrast Patient Name: HEMANT GARCIA CT Exam Date/Time 04/20/2019 21:04:44 EDT Exam CTA Chest w/ + w/o Contrast Ordering Physician CHEKO REYNOLDS Accession Number [id number] CPT4 Codes 25306 (), Q9967 (CT ISOVUE 370MG/[id number] [place] [address]) Reason For Exam SHORTNESS OF BREATH PRODUCED BY EXERTION OR STRESS Report CTA CHEST WITH CONTRAST CLINICAL INDICATION: Shortness of breath , recent section Serial axial CT images were obtained from the lung apices through the upper abdomen after a bolus tracked intravenous contrast injection over the pulmonary arteries. 75 cc of Isovue 370 contrast was given intravenously. Three-dimensional and surface-shaded reconstructions were performed by myself on a separate workstation at the time of dictation. COMPARISON: Chest x-ray performed earlier the same day. CT abdomen and pelvis dated 03/06/2019 FINDINGS: No filling defects are seen within the pulmonary vasculature to suggest the presence of pulmonary embolism. No focal consolidation is seen within the lungs. There is no pleural effusion or pneumothorax. There are small, scattered patchy nodular densities within the right middle lobe and to a lesser extent within the right lung base. There is a more well-defined noncalcified nodule within the right lower lobe on axial image 196 of 315 which measures 8 mm in diameter. No axillary lymphadenopathy is identified. There are borderline enlarged bilateral hilar lymph nodes. No mediastinal lymphadenopathy is seen. Heart size is within normal limits. The thoracic aorta appears normal in caliber. The visualized portion of the upper abdomen is unremarkable. No lytic or blastic lesions are seen on the bone windows. IMPRESSION: No evidence of pulmonary embolism. Irregular, scattered nodular densities predominantly within the right middle lobe, suggestive of an inflammatory or infectious etiology. There are also a few, small scattered irregular nodules within the medial right lung base. There is a more well-defined 8 mm noncalcified nodule at the left lung base. This was not present on a prior CT of the abdomen and pelvis from 03/06/2018. Mildly enlarged bilateral hilar lymph nodes. These are nonspecific and may be reactive. Follow-up CT of the chest in approximately three months is recommended to ensure stability or resolution of the nodular densities. Report Dictated on Final Dictating Physician: MD BENJAMIN JONATHAN R Signed Date and Time: 04/20/2019 9:18 pm Signed by: MD BENJAMIN JONATHAN R Transcribed Date and Time: 04/20/2019 9:19 Normal [facility] Complete Urinalysison 2018 Bacteria LM.HPF (Urine sed) [#/Area] Moderate (6-50) Normal [facility] Comment on above: Result Comment: Refe rence Range: Negative Performed By: #### C UA2 #### [facility] [address] [place] [address] Mucous Threads Few Normal [facility] Comment on above: Result Comment: Refe rence Range: Negative Performed By: #### C UA2 #### [facility] [address] [place] [address] RBC LM.HPF (Urine sed) [#/Area] 26 - 50 Normal [facility] Comment on above: Result Comment: Refe rence Range: 0-2 Performed By: #### C UA2 #### [facility] [address] [place] [address] Squamous Epithelial 3 - 5 Normal [facility] Comment on above: Result Comment: Refe rence Range: 3-5 Performed By: #### C UA2 #### [facility] [address] [place] [address] VOLUME, URINE 12 ml Normal [facility] Comment on above: Performed By: #### C UA2 #### [facility] [address] [place] [address] WBC LM.HPF (Urine sed) [#/Area] 3 - 5 Normal [facility] Comment on above: Result Comment: Refe rence Range: 0-5 Performed By: #### C UA2 #### [facility] [address] [place] [address] Appearance (U) Clear Normal [facility] Comment on above: Result Comment: Refe rence Range: Clear Performed By: #### C UA2 #### [facility] [address] [place] [address] Bilirubin,Urine Negative Normal [facility] Comment on above: Result Comment: Refe rence Range: Negative Performed By: #### C UA2 #### [facility] [address] [place] [address] Color (U) YELLOW Normal [facility] Comment on above: Result Comment: Refe rence Range: Lt. Yellow Performed By: #### C UA2 #### [facility] [address] [place] [address] Glucose Ql (U) Normal Normal [facility] Comment on above: Result Comment: Refe rence Range: Normal (<70) Performed By: #### C UA2 #### [facility] [address] [place] [address] Ketone,Urine Negative Normal [facility] Comment on above: Result Comment: Refe rence Range: Negative Performed By: #### C UA2 #### [facility] [address] [place] [address] Leukocytes,Urine 75 Rayray/uL Normal [facility] Comment on above: Result Comment: Refe rence Range: Negative Performed By: #### C UA2 #### [facility] [address] [place] [address] Nitrites,Urine Negative Normal [facility] Comment on above: Result Comment: Refe rence Range: Negative Performed By: #### C UA2 #### [facility] [address] [place] [address] Occult Blood,Urine 1.0 mg/dL Normal [facility] Comment on above: Result Comment: Refe rence Range: Negative Performed By: #### C UA2 #### [facility] [address] [place] [address] pH (U) 6.0 Normal 5.0-8.0 [facility] Comment on above: Performed By: #### C UA2 #### [facility] [address] [place] [address] Protein (U) [Mass/Vol] 20 mg/dL Normal [facility] Comment on above: Result Comment: Refe rence Range: Negative Performed By: #### C UA2 #### [facility] [address] [place] [address] Specific [place],Urine 1.025 Normal 1.005-1.030 [facility] Comment on above: Performed By: #### C UA2 #### [facility] [address] [place] [address] Urobilinogen,Urine Normal Normal [facility] Comment on above: Result Comment: Refe rence Range: Normal (0-1) Performed By: #### C UA2 #### [facility] [address] [place] [address] D-Dimer, Innovanceon 12-2 019 D-Dimer, Innovance 0.93 mg/L High 0.00-0.50 [facility] Comment on above: Result Comment: Inno thompson D-Dimer values of <0.50 mg/L FEU can be used in combination with a pre-test probability model (e.g. Well's) to exclude pulmonary embolism (PE) disease, as well as an aid in the diagnosis of deep vein thrombosis (DVT). Performed By: #### C UA2 #### [facility] [address] [place] [address] D-Dimer, Quantitativeon 04-09 D-Dimer, Quant 0.93 mg/L High 0 - 0.5 mg/L [place] Comment on above: Innovance D-Dimer va lues of <0.50 mg/L FEU can be used in combination with a pre-test probability model (e.g. Well's) to exclude pulmonary embolism (PE) disease, as well as an aid in the diagnosis of deep vein thrombosis (DVT). Interpretation and review of laboratory results Abnormal [place] Test Performed by [facility], [address] , [place], [place] [address] [place] Hemogram (CBC) w/Auto Diffon 04-20-2019 Absolute Baso # 0.2 10*3/uL 0 - 0.2 10*3/uL [place] Absolute Neut # 10.2 10*3/uL High 1.8 - 7 10*3/uL [place] Basophils/100 WBC (Bld) 1.3 % 0 - 2 % [place] Eosinophils (Bld) [#/Vol] 0.2 10*3/uL 0 - 0.5 10*3/uL [place] Eosinophils/100 WBC (Bld) 1.5 % 1 - 6 % [place] Erythrocyte distribution width (RBC) [Ratio] 15.4 % High 11.5 - 14.5 % [place] Granulocytes/100 WBC (Bld) 73.1 % 40 - 80 % [place] Hematocrit (Bld) [Volume fraction] 38.0 % 35 - 47 % [place] Hemoglobin (Bld) [Mass/Vol] 12.9 g/dL 11.7 - 16 g/dL [place] Interpretation and review of laboratory results Abnormal [place] Lymphocytes (Bld) [#/Vol] 2.7 10*3/uL 1 - 4.3 10*3/uL [place] Lymphocytes/100 WBC (Bld) 19.7 % Low 20 - 40 % [place] MCH (RBC) [Entitic mass] 26.8 pg 26 - 34 pg [place] MCHC (RBC) [Mass/Vol] 33.9 % 32 - 36 % [place] MCV (RBC) [Entitic vol] 79.0 fL 79 - 98 fL [place], [place] Monocytes (Bld) [#/Vol] 0.6 10*3/uL 0 - 0.8 10*3/uL [place] Monocytes/100 WBC (Bld) 4.4 % 2 - 10 % [place] Platelet mean volume (Bld) [Entitic vol] 8.1 fL 7.4 - 10.4 fL [place] Platelets (Bld) [#/Vol] 317 10*3/uL 140 - 440 10*3/uL [place] RBC (Bld) [#/Vol] 4.81 10*6/uL 3.8 - 5.2 10*6/uL [place] WBC (Bld) [#/Vol] 13.9 10*3/uL High 3.6 - 10.7 10*3/uL [place] Test Performed by [facility], [address] , [place], [place] [address] [place] [address] Hemogram w/ Autodiffon 04-20 Abs Baso Cnt 0.2 10*3/uL Normal 0.0-0.2 [facility] Comment on above: Performed By: #### C UA2 #### [facility] [address] [place] [address] Abs Neutrophile Cnt 10.2 10*3/uL High 1.8-7.0 [facility] Comment on above: Performed By: #### C UA2 #### [facility] [address] [place] [address] Basophils/100 WBC (Bld) 1.3 % Normal 0.0-2.0 [facility] Comment on above: Performed By: #### C UA2 #### [facility] [address] [place] [address] Eosinophils (Bld) [#/Vol] 0.2 10*3/uL Normal 0.0-0.5 [facility] Comment on above: Performed By: #### C UA2 #### [facility] [address] [place] [address] Eosinophils/100 WBC (Bld) 1.5 % Normal 1.0-6.0 [facility] Comment on above: Performed By: #### C UA2 #### [facility] [address] [place] [address] Erythrocyte distribution width (RBC) [Ratio] 15.4 % High 11.5-14.5 [facility] Comment on above: Performed By: #### C UA2 #### [place] [address] [place] [address] Granulocytes/100 WBC (Bld) 73.1 % Normal 40.0-80.0 [facility] Comment on above: Performed By: #### C UA2 #### [facility] [address] [place] [address] Hematocrit (Bld) [Volume fraction] 38.0 % Normal 35.0-47.0 [facility] Comment on above: Performed By: #### C UA2 #### [facility] [address] [place] [address] Hemoglobin (Bld) [Mass/Vol] 12.9 g/dL Normal 11.7-16.0 [facility] Comment on above: Performed By: #### C UA2 #### [facility] [address] [place] [address] Lymphocytes (Bld) [#/Vol] 2.7 10*3/uL Normal 1.0-4.3 [facility] Comment on above: Performed By: #### C UA2 #### [facility] [address] [place] [address] Lymphocytes/100 WBC (Bld) 19.7 % Low 20.0-40.0 [facility] Comment on above: Performed By: #### C UA2 #### [facility] [address] [place] [address] MCH (RBC) [Entitic mass] 26.8 pg Normal 26.0-34.0 [facility] Comment on above: Performed By: #### C UA2 #### [facility] [address] [place] [address] MCHC (RBC) [Mass/Vol] 33.9 % Normal 32.0-36.0 [facility] Comment on above: Performed By: #### C UA2 #### [facility] [address] [place] [address] MCV (RBC) [Entitic vol] 79.0 fL Normal 79.0-98.0 [facility] Comment on above: Performed By: #### C UA2 #### [facility] [address] [place] [address] Monocytes (Bld) [#/Vol] 0.6 10*3/uL Normal 0.0-0.8 [facility] Comment on above: Performed By: #### C UA2 #### [facility] [address] [place] [address] Monocytes/100 WBC (Bld) 4.4 % Normal 2.0-10.0 [facility] Comment on above: Performed By: #### C UA2 #### [facility] [address] [place] [address] Platelet mean volume (Bld) [Entitic vol] 8.1 fL Normal 7.4-10.4 [facility] Comment on above: Performed By: #### C UA2 #### [facility] [address] [place] [address] Platelets (Bld) [#/Vol] 317 10*3/uL Normal 140-440 [facility] Comment on above: Performed By: #### C UA2 #### [facility] [address] [place] [address] RBC (Bld) [#/Vol] 4.81 10*6/uL Normal 3.80-5.20 [facility] Comment on above: Performed By: #### C UA2 #### [facility] [address] [place] [address] WBC (Bld) [#/Vol] 13.9 10*3/uL High 3.6-10.7 [facility] Comment on above: Performed By: #### C UA2 #### [facility] [address] [place] [address] Lipaseon 04-20-2019 Lipase [Catalytic activity/Vol] 66 U/L Normal 23-300 [facility] Comment on above: Performed By: #### C UA2 #### [facility] [address] [place] [address] Lipase [Catalytic activity/Vol] 66 U/L 23 - 300 U/L [place] Test Performed by [facility], [address] , [place], [place] [address] [place] Urinalysison 04-20-2019 Appearance (U) Clear [place] Comment on above: Reference Range: Zane ar Bacteria, UA Moderate (6-50) /[HPF] [place] Comment on above: Reference Range: Neg ative Bilirubin Urine Negative mg/dL [place] Comment on above: Reference Range: Neg ative Color (U) YELLOW [place] Comment on above: Reference Range: Lt. Yellow Glucose, Ur Normal mg/dL [place] Comment on above: Reference Range: Nor mal (<70) Ketones Ql (U) Negative mg/dL [place] Comment on above: Reference Range: Neg ative LEUKOCYTES, UA 75 Rayray/uL [place] Comment on above: Reference Range: Neg ative Mucous Threads Few /[LPF] [place] Comment on above: Reference Range: Neg ative Nitrite, Urine Negative [place] Comment on above: Reference Range: Neg ative Occult Blood,Urine 1.0 mg/dL [place] Comment on above: Reference Range: Neg ative pH (U) 6.0 [pH] [place] Protein (U) [Mass/Vol] 20 mg/dL [place], [place] Comment on above: Reference Range: Neg ative RBC (U) [#/Vol] 26-50 /[HPF] [place] Comment on above: Reference Range: 0-2 Specific [place], Urine 1.025 [place] Squam Epithel, UA 3-5 /[HPF] [place] Comment on above: Reference Range: 3-5 Urobilinogen, Urine Normal mg/dL [place] Comment on above: Reference Range: Nor mal (0-1) Volume 12 ml [place] WBC, UA 3-5 /[HPF] [place] Comment on above: Reference Range: 0-5 Test Performed by [facility], [address] , [place], [place] [id number] [place] [address] XR CHEST STANDARD (2 VW)on 0 04-20-2019 Patient Name: HEMANT PAREDES ---Diagnostic Radiology--- Exam Date/Time 04/20/2019 19:29:54 EDT Exam CR Chest PA/LAT Ordering Physician MD OSMAN VIJAY Accession Number [id number] CPT4 Codes 33708 () Reason For Exam cough Report PA and lateral views of the chest, 04/20/2019. Reason for examination: Cough. COMPARISON: April 16, 2016. FINDINGS: Cardiac size is within normal limits. Pulmonary vasculature is normal. The lungs are free of infiltrate. No pleural effusion or pneumothorax is identified. Osseous structures appear grossly intact. IMPRESSION: No acute cardiopulmonary disease detected. Report Dictated on --- Final --- Dictating Physician: MD HESS JOE M Signed Date and Time: 04/20/2019 7:34 pm Signed by: MD HESS JOE M Transcribed Date and Time: 04/20/2019 7:35 [place], [place], [facility] Incoming Radiology Results From [facility] - 04/20/2019 7:36 PM EDT Patient Name: HEMANT GARCIA ---Diagnostic Radiology--- Exam Date/Time 04/20/2019 19:29:54 EDT Exam CR Chest PA/LAT Ordering Physician MD OSMAN VIJAY Accession Number [id number] CPT4 Codes 13614 () Reason For Exam cough Report PA and lateral views of the chest, 04/20/2019. Reason for examination: Cough. COMPARISON: April 16, 2016. FINDINGS: Cardiac size is within normal limits. Pulmonary vasculature is normal. The lungs are free of infiltrate. No pleural effusion or pneumothorax is identified. Osseous structures appear grossly intact. IMPRESSION: No acute cardiopulmonary disease detected. Report Dictated on --- Final --- Dictating Physician: MD HESS JOE M Signed Date and Time: 04/20/2019 7:34 pm Signed by: MD HESS JOE M Transcribed Date and Time: 04/20/2019 7:35 [place] Hemoglobinon 04-10-2019 Hemoglobin (Bld) [Mass/Vol] 10.8 g/dL Low 11.7-16.0 [facility] Comment on above: Performed By: #### H EMGB #### [facility] [address] [place] [address] Hemoglobin (Bld) [Mass/Vol] 10.8 g/dL Low 11.7 - 16 g/dL [place] Interpretation and review of laboratory results Abnormal [place] Test Performed by [facility], [address] [place], [place] [address] [place] CBCon 04-09-2019 Erythrocyte distribution width (RBC) [Ratio] 15.6 % High 11.5 - 14.5 % [place] Hematocrit (Bld) [Volume fraction] 31.3 % Low 35 - 47 % [place] Hemoglobin (Bld) [Mass/Vol] 10.5 g/dL Low 11.7 - 16 g/dL [place] Interpretation and review of laboratory results Abnormal [place] MCH (RBC) [Entitic mass] 27.1 pg 26 - 34 pg [place] MCHC (RBC) [Mass/Vol] 33.4 % 32 - 36 % [place] MCV (RBC) [Entitic vol] 81.0 fL 79 - 98 fL [place] Platelet mean volume (Bld) [Entitic vol] 8.0 fL 7.4 - 10.4 fL [place] Platelets (Bld) [#/Vol] 209 10*3/uL 140 - 440 10*3/uL [place] RBC (Bld) [#/Vol] 3.87 10*6/uL 3.8 - 5.2 10*6/uL [place] WBC (Bld) [#/Vol] 11.9 10*3/uL High 3.6 - 10.7 10*3/uL [place] Test Performed by [facility], [address] [place] [address] [place] Hemogramon 04-09-2019 Erythrocyte distribution width (RBC) [Ratio] 15.6 % High 11.5-14.5 [facility] Comment on above: Performed By: #### H EMOG #### [facility] [address] [place] [address] Hematocrit (Bld) [Volume fraction] 31.3 % Low 35.0-47.0 [facility] Comment on above: Performed By: #### H EMOG #### [facility] [address] [place] [address] Hemoglobin (Bld) [Mass/Vol] 10.5 g/dL Low 11.7-16.0 [facility] Comment on above: Performed By: #### H EMOG #### [facility] [address] [place] [address] MCH (RBC) [Entitic mass] 27.1 pg Normal 26.0-34.0 [facility] Comment on above: Performed By: #### H EMOG #### [facility] [address] [place] [address] MCHC (RBC) [Mass/Vol] 33.4 % Normal 32.0-36.0 [facility] Comment on above: Performed By: #### H EMOG #### [facility] [address] [place] [address] MCV (RBC) [Entitic vol] 81.0 fL Normal 79.0-98.0 [facility] Comment on above: Performed By: #### H EMOG #### [facility] [address] [place] [address] Platelet mean volume (Bld) [Entitic vol] 8.0 fL Normal 7.4-10.4 [facility] Comment on above: Performed By: #### H EMOG #### [facility] [address] [place] [address] Platelets (Bld) [#/Vol] 209 10*3/uL Normal 140-440 [facility] Comment on above: Performed By: #### H EMOG #### [facility] [address] [place] [address] RBC (Bld) [#/Vol] 3.87 10*6/uL Normal 3.80-5.20 [facility] Comment on above: Performed By: #### H EMOG #### [facility] [address] [place] [address] WBC (Bld) [#/Vol] 11.9 10*3/uL High 3.6-10.7 [facility] Comment on above: Performed By: #### H EMOG #### [facility] [address] [place] [address] Surgical Pathologyon 019 Surgical Pathology [id number] [facility] PATHOLOGY AND LABORATORY MEDICINE [address] [facility] [place] [address] Fax - FINAL SURGICAL PATHOLOGY REPORT NAME: HEMANT GARCIA : 1990 28 Y F BILLING NO.: [id number] LOCATION: [id number] [id number] 1 PROCEDURE 04/09/2019 DATE: SURGEON: MY PATEL D.O. RECEIVED 04/09/2019 DATE: ATTENDING: CHOCO HUBER M.D. REPORT DATE: 04/19/2019 COPIES TO: DIAGNOSIS: RIGHT TUBE WITH PARATUBAL CYST, EXCISION - SIMPLE EPITHELIAL-LINED SEROUS CYST. SMT/ANGELINA Signature> S FARHEEN RODRIGUEZ M.D. CLINICAL INFORMATION: Right ovarian cyst SPECIMEN: OVARIAN CYST GROSS DESCRIPTION: Right tube with paratubal cyst Received in formalin is a fallopian tube with attached fimbriae measuring 6.9 cm in length with an average diameter of 6.5 cm. The serosal surface is johnston, smooth and glistening with a cystic appearance. Sectioning through reveals a cystic space measuring 4.5 cm in greatest dimension. The cystic space is filled with brown serous fluid. The wall of the cyst is smooth with three small papillations ranging in size from 0.2 to 0.4 cm. Cassette Summary: 1 market survey representative section of fimbriae and possible fallopian tube lumen; 2 entire area of papillations; 3 market survey representative sections of the background cyst wall. (bits ss, 3) LH3/ANN MARIE Disclaimer: The following statement applies to all immunohistochemistry, in situ hybridization, molecular studies, and immunofluorescence testing. The use of one or more reagents in the above tests is regulated as an analyte specific reagent (ASR). These tests were developed and their performance characteristics determined by the clinical laboratories of [facility]. They have not been cleared by the [place] Food and Drug Administration (FDA). The FDA has determined that such clearance or approval is not necessary. All the above immunostains were performed on paraffin embedded tissue. Appropriate positive and negative controls (where applicable) were run in parallel with the patient's specimen; these controls showed expected staining pattern, with acceptable intensity of staining. Immunohistochemical assays have not been validated on decalcified tissues. Results should be interpreted with caution given the raised possibility of false negativity on decalcified specimens. Case reviewed at [place] [address] [place] [address]. DEPARTMENT OF PATHOLOGY AND LABORATORY MEDICINE [place], [place] [address] Normal [facility] TS GELon 04-09-2019 TS GEL ABO Group: O Rh, Gel: POS Antibody Screen Gel: NEG Normal [facility] Comment on above: Performed By: #### T SGL #### [facility] [address] [place] [address] TYPE AND SCREENon 04-09-2019 Sodium [Moles/Vol] [place] Sodium [Moles/Vol] Negative [place] Comment on above: Test Performed by [facility], [address] [place], [place] [address] Sodium [Moles/Vol] Positive [place] Comment on above: Test Performed by [facility], [address] [place], [place] [address] Test Performed by [facility], [address] [place], [place] [address] [place] US PELVIS COMPLETEon 019 Patient Name: HEMANT PAREDES ---Ultrasound--- Exam Date/Time 04/08/2019 11:15:00 EDT Exam US Pelvis Complete Ordering Physician MATTHEW MÉNDEZ Accession Number [id number] CPT4 Codes 00198 () Reason For Exam ABDOMINAL PAIN, RLQ Report ULTRASOUND PELVIS, TRANSABDOMINAL: INDICATION: Right lower quadrant abdominal pain COMPARISON: None A limited sonogram of the pelvis is performed transabdominally. The uterus is not adequately evaluated on this examination. There is a single viable intrauterine with a heart rate of 167 bpm. The fetus is also not adequately evaluated. The right ovary measures 7.3 x 6.2 x 5.3 and contains a 6.6 x 5.1 x 4.8 cm cyst Blood flow is present within the right ovary by Doppler analysis. The left adnexa is not evaluated. A small amount of fluid is suspected in the right adnexal region. IMPRESSIONS: Limited study with inadequate evaluation of the uterus, the intrauterine and the left adnexa. The study does demonstrate the presence of a right ovarian cyst and possibly a small amount of free fluid in the right adnexal region. Report Dictated on Workstation: [id number] --- Final --- Dictating Physician: DO HURLEY ALFRED Signed Date and Time: 04/09/2019 0:10 am Signed by: DO HURLEY ALFRED Transcribed Date and Time: 04/09/2019 0:13 [place], [facility] Incoming Radiology Results From [facility] - 04/09/2019 12:13 AM EDT Patient Name: HEMANT GARCIA ---Ultrasound--- Exam Date/Time 04/08/2019 11:15:00 EDT Exam US Pelvis Complete Ordering Physician MATTHEW MÉNDEZ Accession Number [id number] CPT4 Codes 42968 () Reason For Exam ABDOMINAL PAIN, RLQ Report ULTRASOUND PELVIS, TRANSABDOMINAL: INDICATION: Right lower quadrant abdominal pain COMPARISON: None A limited sonogram of the pelvis is performed transabdominally. The uterus is not adequately evaluated on this examination. There is a single viable intrauterine with a heart rate of 167 bpm. The fetus is also not adequately evaluated. The right ovary measures 7.3 x 6.2 x 5.3 and contains a 6.6 x 5.1 x 4.8 cm cyst Blood flow is present within the right ovary by Doppler analysis. The left adnexa is not evaluated. A small amount of fluid is suspected in the right adnexal region. IMPRESSIONS: Limited study with inadequate evaluation of the uterus, the intrauterine and the left adnexa. The study does demonstrate the presence of a right ovarian cyst and possibly a small amount of free fluid in the right adnexal region. Report Dictated on Workstation: [id number] --- Final --- Dictating Physician: DO HURLEY ALFRED Signed Date and Time: 04/09/2019 0:10 am Signed by: DO HURLEY ALFRED Transcribed Date and Time: 04/09/2019 0:13 [place] US Pelvis Completeon 019 US Pelvis Complete Patient Name: HEMANT PAREDES Ultrasound Exam Date/Time 04/08/2019 11:15:00 EDT Exam US Pelvis Complete Ordering Physician MATTHEW MÉNDEZ Accession Number [id number] CPT4 Codes 44078 () Reason For Exam ABDOMINAL PAIN, RLQ Report ULTRASOUND PELVIS, TRANSABDOMINAL: INDICATION: Right lower quadrant abdominal pain COMPARISON: None A limited sonogram of the pelvis is performed transabdominally. The uterus is not adequately evaluated on this examination. There is a single viable intrauterine with a heart rate of 167 bpm. The fetus is also not adequately evaluated. The right ovary measures 7.3 x 6.2 x 5.3 and contains a 6.6 x 5.1 x 4.8 cm cyst Blood flow is present within the right ovary by Doppler analysis. The left adnexa is not evaluated. A small amount of fluid is suspected in the right adnexal region. IMPRESSIONS: Limited study with inadequate evaluation of the uterus, the intrauterine and the left adnexa. The study does demonstrate the presence of a right ovarian cyst and possibly a small amount of free fluid in the right adnexal region. Report Dictated on Workstation: [id number] Final Dictating Physician: DO HURLEY ALFRED Signed Date and Time: 04/09/2019 0:10 am Signed by: DO HURLEY ALFRED Transcribed Date and Time: 04/09/2019 0:13 [facility] US Retroperitoneal Completeo n 04-09-2019 US Retroperitoneal Complete Patient Name: HEMANT GARCIA Ultrasound Exam Date/Time 04/08/2019 10:45:00 EDT Exam US Retroperitoneal Complete Ordering Physician MATTHEW MÉNDEZ Accession Number [id number] CPT4 Codes 15815 () Reason For Exam abdominal pain, RLQ Report RENAL ULTRASOUND: INDICATION: Right lower quadrant pain COMPARISON: No prior studies are available for comparison. Sonographic images of the bilateral kidneys and bladder were obtained. The right kidney measures 12.5 x 5.9 x 4.3 cm. Parenchymal echotexture is normal. No focal lesions are seen. There is no evidence of hydronephrosis or renal calculus. The left kidney measures 10.7 x 5.9 x 5.1 cm. Parenchymal echotexture is normal. No focal lesions are seen. There is no evidence of hydronephrosis or renal calculus. No mass or fluid collection is seen adjacent to the kidneys. The bladder is grossly unremarkable. IMPRESSION: Unremarkable renal ultrasound. Report Dictated on Workstation: [id number] Final Dictating Physician: DO HURLEY ALFRED Signed Date and Time: 04/08/2019 11:59 pm Signed by: DO HURLEY ALFRED Transcribed Date and Time: 04/09/2019 0:12 Normal [facility] CBCon 04-08-2019 Erythrocyte distribution width (RBC) [Ratio] 15.7 % High 11.5 - 14.5 % [place] Hematocrit (Bld) [Volume fraction] 31.8 % Low 35 - 47 % [place] Hemoglobin (Bld) [Mass/Vol] 10.8 g/dL Low 11.7 - 16 g/dL [place] Interpretation and review of laboratory results Abnormal [place] MCH (RBC) [Entitic mass] 27.4 pg 26 - 34 pg [place] MCHC (RBC) [Mass/Vol] 33.8 % 32 - 36 % [place] MCV (RBC) [Entitic vol] 81.0 fL 79 - 98 fL [place] Platelet mean volume (Bld) [Entitic vol] 8.0 fL 7.4 - 10.4 fL [place] Platelets (Bld) [#/Vol] 231 10*3/uL 140 - 440 10*3/uL [place] RBC (Bld) [#/Vol] 3.93 10*6/uL 3.8 - 5.2 10*6/uL [place] WBC (Bld) [#/Vol] 13.1 10*3/uL High 3.6 - 10.7 10*3/uL [place] Test Performed by [facility], [address], [place], [place] [address] [place] COMPREHENSIVE METABOLIC PANE Mike 04-08-2019 Albumin [Mass/Vol] 3.4 g/dL Low 3.5 - 5 g/dL [place] ALP [Catalytic activity/Vol] 143 U/L High 38 - 126 U/L [place] ALT [Catalytic activity/Vol] 7 U/L Low 13 - 69 U/L [place] Anion gap [Moles/Vol] 5 mmol/L [place] AST [Catalytic activity/Vol] 16 U/L 15 - 46 U/L [place] Bilirubin Ql (U) 0.4 mg/dL 0.2 - 1.3 mg/dL [place] Calcium [Mass/Vol] 9.3 mg/dL 8.4 - 10. 4 mg/dL [place] Chloride [Moles/Vol] 106 mmol/L 98 - 10 7 mmol/L [place] CO2 [Moles/Vol] 22 mmol/L 22 - 30 mmol/L [place] Creatinine [Mass/Vol] 0.72 mg/dL 0.52 - 1.25 mg/dL [place] EGFR IF NonAfrican Micronesian >60.0 >60 mL/min [place] Comment on above: Source- MDRD equatio n with creatinine calibration to IDMS(NKDEP) eGFR not recommended for drug dose adjustment GFR/1.73 sq M predicted among blacks MDRD (S/P/Bld) [Vol rate/Area] mL/min/{1.73_m2} >60 mL/min [place] Glucose [Mass/Vol] 84 mg/dL 70 - 100 mg/dL [place] Interpretation and review of laboratory results Abnormal [place] Potassium [Moles/Vol] 4.1 mmol/L 3.5 - 5.1 mmol/L [place] Protein [Mass/Vol] 6.9 g/dL 6.3 - 8.2 g/dL [place] Sodium [Moles/Vol] 133 mmol/L Low 135 - 145 mmol/L [place] Urea nitrogen [Mass/Vol] 9 mg/dL 7 - 20 mg/dL [place] Test Performed by [facility], [address] [place] [address] [place] Comp Metabolic Panelon 04-08 ALP [Catalytic activity/Vol] 143 U/L High 38-126 [facility] Comment on above: Performed By: #### H KWAKU CMP3 #### [facility] [address] [place] [address] ALT [Catalytic activity/Vol] 7 U/L Low 13-69 [facility] Comment on above: Performed By: #### H KWAKU CMP3 #### [facility] [address] [place] [address] AST [Catalytic activity/Vol] 16 U/L Normal 15-46 [facility] Comment on above: Performed By: #### H KWAKU CMP3 #### [facility] [address] [place] [address] Bilirubin [Mass/Vol] 0.4 mg/dL Normal 0.2-1.3 [facility] Comment on above: Performed By: #### H KWAKU CMP3 #### [facility] [address] [place] [address] Calcium [Mass/Vol] 9.3 mg/dL Normal 8.4-10.4 [facility] Comment on above: Performed By: #### H KWAKU CMP3 #### [facility] [address] [place] [address] Glucose [Mass/Vol] 84 mg/dL Normal 70-100 [facility] Comment on above: Performed By: #### H EMOVandana CMP3 #### [facility] [address] [place] [address] Protein [Mass/Vol] 6.9 g/dL Normal 6.3-8.2 [facility] Comment on above: Performed By: #### H KWAKU CMP3 #### [facility] [address] [place] [address] Urea nitrogen [Mass/Vol] 9 mg/dL Normal 7-20 [facility] Comment on above: Performed By: #### Cuate AMES CMP3 #### [facility] [address] [place] [address] Anion gap [Moles/Vol] 5 Normal [facility] Comment on above: Performed By: #### Cuate AMES CMP3 #### [facility] [address] [place] [address] CO2 [Moles/Vol] 22 mmol/L Normal 22-30 [facility] Comment on above: Performed By: #### Cuate AMES CMP3 #### [facility] [address] [place] [address] Creatinine [Mass/Vol] 0.72 mg/dL Normal 0.52-1.25 [facility] Comment on above: Performed By: #### Cuate AMES CMP3 #### [facility] [address] [place] [address] GFR/1.73 sq M predicted among blacks MDRD (S/P/Bld) [Vol rate/Area] mL/min/{1.73_m2} Normal >60 [facility] Comment on above: Performed By: #### Cuate AMES CMP3 #### [facility] [address] [place] [address] GFR/1.73 sq M predicted among non-blacks MDRD (S/P/Bld) [Vol rate/Area] mL/min/{1.73_m2} Normal >60 [facility] Comment on above: Result Comment: Sour ce- MDRD equation with creatinine calibration to IDMS(NKDEP) eGFR not recommended for drug dose adjustment Performed By: #### H KWAKU CMP3 #### [facility] [address] [place] [address] Albumin [Mass/Vol] 3.4 g/dL Low 3.5-5.0 [facility] Comment on above: Performed By: #### H KWAKU CMP3 #### [facility] [address] [place] [address] Potassium [Moles/Vol] 4.1 mmol/L Normal 3.5-5.1 [facility] Comment on above: Performed By: #### H EMOG, CMP3 #### [facility] [address] [place] [address] Sodium [Moles/Vol] 133 mmol/L Low 135-145 [facility] Comment on above: Performed By: #### H EMOG, CMP3 #### [facility] [address] [place] [address] Chloride [Moles/Vol] 106 mmol/L Normal 98-107 [facility] Comment on above: Performed By: #### H EMOG, CMP3 #### [facility] [address] [place] [address] Complete Urinalysison 2018 Appearance (U) Turbid Normal [facility] Comment on above: Result Comment: Refe rence Range: Clear Performed By: #### C UA2 #### [facility] [address] [place] [address] Bacteria LM.HPF (Urine sed) [#/Area] Moderate Normal [facility] Comment on above: Result Comment: Refe rence Range: Negative Performed By: #### C UA2 #### [facility] [address] [place] [address] Bilirubin,Urine Negative Normal [facility] Comment on above: Result Comment: Refe rence Range: Negative Performed By: #### C UA2 #### [facility] [address] [place] [address] Ca Oxylate Crystals Moderate Normal [facility] Comment on above: Result Comment: Refe rence Range: Negative Performed By: #### C UA2 #### [facility] [address] [place] [address] Cast, Hyaline 0 - 2 Normal [facility] Comment on above: Result Comment: Refe rence Range: Negative Performed By: #### C UA2 #### [facility] [address] [place] [address] Color (U) Yellow Normal [facility] Comment on above: Result Comment: Refe rence Range: Lt. Yellow Performed By: #### C UA2 #### [facility] [address] [place] [address] Glucose Ql (U) Normal Normal [facility] Comment on above: Result Comment: Refe rence Range: Normal (<70) Performed By: #### C UA2 #### [facility] [address] [place] [address] Ketone,Urine Negative Normal [facility] Comment on above: Result Comment: Refe rence Range: Negative Performed By: #### C UA2 #### [facility] [address] [place] [address] Leukocytes,Urine 75 Rayray/uL Normal [facility] Comment on above: Result Comment: Refe rence Range: Negative Performed By: #### C UA2 #### [facility] [address] [place] [address] Mucous Threads Many Normal [facility] Comment on above: Result Comment: Refe rence Range: Negative Performed By: #### C UA2 #### [facility] [address] [place] [address] Nitrites,Urine Negative Normal [facility] Comment on above: Result Comment: Refe rence Range: Negative Performed By: #### C UA2 #### [facility] [address] [place] [address] Occult Blood,Urine Negative Normal [facility] Comment on above: Result Comment: Refe rence Range: Negative Performed By: #### C UA2 #### [facility] [address] [place] [address] pH (U) 6.5 Normal 5.0-8.0 [facility] Comment on above: Performed By: #### C UA2 #### [facility] [address] [place] [address] Protein (U) [Mass/Vol] 10 mg/dL Normal [facility] Comment on above: Result Comment: Refe rence Range: Negative Performed By: #### C UA2 #### [facility] [address] [place] [address] RBC LM.HPF (Urine sed) [#/Area] 0 - 2 Normal [facility] Comment on above: Result Comment: Refe rence Range: 0-2 Performed By: #### C UA2 #### [facility] [address] [place] [address] Specific [place],Urine 1.023 Normal 1.005-1.030 [facility] Comment on above: Performed By: #### C UA2 #### [facility] [address] [place] [address] Squamous Epithelial 3 - 5 Normal [facility] Comment on above: Result Comment: Refe rence Range: 3-5 Performed By: #### C UA2 #### [facility] [address] [place] [address] Urobilinogen,Urine Normal Normal [facility] Comment on above: Result Comment: Refe rence Range: Normal (0-1) Performed By: #### C UA2 #### [facility] [address] [place] [address] WBC LM.HPF (Urine sed) [#/Area] 3 - 5 Normal [facility] Comment on above: Result Comment: Refe rence Range: 0-5 Performed By: #### C UA2 #### [facility] [address] [place] [address] Hemogramon 04-08-2019 Erythrocyte distribution width (RBC) [Ratio] 15.7 % High 11.5-14.5 [facility] Comment on above: Performed By: #### Cuate AMES CMP3 #### [facility] [address] [place] [address] Hematocrit (Bld) [Volume fraction] 31.8 % Low 35.0-47.0 [facility] Comment on above: Performed By: #### H MENDEZ AMES3 #### [facility] [address] [place] [address] Hemoglobin (Bld) [Mass/Vol] 10.8 g/dL Low 11.7-16.0 [facility] Comment on above: Performed By: #### H MENDEZ AMES3 #### [facility] [address] [place] [address] MCH (RBC) [Entitic mass] 27.4 pg Normal 26.0-34.0 [facility] Comment on above: Performed By: #### H MENDEZ AMES3 #### [facility] [address] [place] [address] MCHC (RBC) [Mass/Vol] 33.8 % Normal 32.0-36.0 [facility] Comment on above: Performed By: #### H KWAKU, CMP3 #### [facility] [address] [place] [address] MCV (RBC) [Entitic vol] 81.0 fL Normal 79.0-98.0 [facility] Comment on above: Performed By: #### H KWAKU, CMP3 #### [facility] [address] [place] [address] Platelet mean volume (Bld) [Entitic vol] 8.0 fL Normal 7.4-10.4 [facility] Comment on above: Performed By: #### H KWAKU, CMP3 #### [facility] [address] [place] [address] Platelets (Bld) [#/Vol] 231 10*3/uL Normal 140-440 [facility] Comment on above: Performed By: #### H KWAKU, CMP3 #### [facility] [address] [place] [address] RBC (Bld) [#/Vol] 3.93 10*6/uL Normal 3.80-5.20 [facility] Comment on above: Performed By: #### H KWAKU, CMP3 #### [facility] [address] [place] [address] WBC (Bld) [#/Vol] 13.1 10*3/uL High 3.6-10.7 [facility] Comment on above: Performed By: #### H EMOVandana, CMP3 #### [facility] [address] [place] [address] US RETROPERITONEAL COMPLETEo n 04-08-2019 [place], [facility] Incoming Radiology Results From [facility] - 04/09/2019 12:13 AM EDT Patient Name: HEMANT GARCIA ---Ultrasound--- Exam Date/Time 04/08/2019 10:45:00 EDT Exam US Retroperitoneal Complete Ordering Physician MATTHEW MÉNDEZ Accession Number [id number] CPT4 Codes 86133 () Reason For Exam abdominal pain, RLQ Report RENAL ULTRASOUND: INDICATION: Right lower quadrant pain COMPARISON: No prior studies are available for comparison. Sonographic images of the bilateral kidneys and bladder were obtained. The right kidney measures 12.5 x 5.9 x 4.3 cm. Parenchymal echotexture is normal. No focal lesions are seen. There is no evidence of hydronephrosis or renal calculus. The left kidney measures 10.7 x 5.9 x 5.1 cm. Parenchymal echotexture is normal. No focal lesions are seen. There is no evidence of hydronephrosis or renal calculus. No mass or fluid collection is seen adjacent to the kidneys. The bladder is grossly unremarkable. IMPRESSION: Unremarkable renal ultrasound. Report Dictated on Workstation: [id number] --- Final --- Dictating Physician: DO HURLEY ALFRED Signed Date and Time: 04/08/2019 11:59 pm Signed by: DO HURLEY ALFRED Transcribed Date and Time: 04/09/2019 0:12 [place] Patient Name: HEMANT PAREDES ---Ultrasound--- Exam Date/Time 04/08/2019 10:45:00 EDT Exam US Retroperitoneal Complete Ordering Physician MATTHEW MÉNDEZ Accession Number [id number] CPT4 Codes 78874 () Reason For Exam abdominal pain, RLQ Report RENAL ULTRASOUND: INDICATION: Right lower quadrant pain COMPARISON: No prior studies are available for comparison. Sonographic images of the bilateral kidneys and bladder were obtained. The right kidney measures 12.5 x 5.9 x 4.3 cm. Parenchymal echotexture is normal. No focal lesions are seen. There is no evidence of hydronephrosis or renal calculus. The left kidney measures 10.7 x 5.9 x 5.1 cm. Parenchymal echotexture is normal. No focal lesions are seen. There is no evidence of hydronephrosis or renal calculus. No mass or fluid collection is seen adjacent to the kidneys. The bladder is grossly unremarkable. IMPRESSION: Unremarkable renal ultrasound. Report Dictated on Workstation: [id number] --- Final --- Dictating Physician: DO HURLEY ALFRED Signed Date and Time: 04/08/2019 11:59 pm Signed by: DO HURLEY ALFRED Transcribed Date and Time: 04/09/2019 0:12 [place], [place] Urinalysison 04-08-2019 Appearance (U) Turbid [place], [place] Comment on above: Reference Range: Zane ar Bacteria, UA Moderate /[HPF] [place] Comment on above: Reference Range: Neg ative Bilirubin Urine Negative mg/dL [place] Comment on above: Reference Range: Neg ative Ca Oxalate Yocasta, UA Moderate /[HPF] [place] Comment on above: Reference Range: Neg ative Color (U) Yellow [place] Comment on above: Reference Range: Lt. Yellow Glucose, Ur Normal mg/dL [place] Comment on above: Reference Range: Nor mal (<70) Hyaline Casts, UA 0-2 /[LPF] [place] Comment on above: Reference Range: Neg ative Ketones Ql (U) Negative mg/dL [place] Comment on above: Reference Range: Neg ative LEUKOCYTES, UA 75 Rayray/uL [place] Comment on above: Reference Range: Neg ative Mucous Threads Many /[LPF] [place] Comment on above: Reference Range: Neg ative Nitrite, Urine Negative [place] Comment on above: Reference Range: Neg ative Occult Blood,Urine Negative mg/dL [place] Comment on above: Reference Range: Neg ative pH (U) 6.5 [pH] [place] Protein (U) [Mass/Vol] 10 mg/dL [place], [place] Comment on above: Reference Range: Neg ative RBC (U) [#/Vol] 0-2 /[HPF] [place] Comment on above: Reference Range: 0-2 Specific [place], Urine 1.023 [place], [place] Squam Epithel, UA 3-5 /[HPF] [place] Comment on above: Reference Range: 3-5 Urobilinogen, Urine Normal mg/dL [place] Comment on above: Reference Range: Nor mal (0-1) WBC, UA 3-5 /[HPF] [place] Comment on above: Reference Range: 0-5 Test Performed by [facility], [address] [place] [address] [place], [place] Complete Urinalysison 2018 Bacteria LM.HPF (Urine sed) [#/Area] Few (1-5) Normal [facility] Comment on above: Result Comment: Refe rence Range: Negative Performed By: #### C UA2 #### [facility] [address] [place] [address] Ca Oxylate Crystals Few (1-5) Normal [facility] Comment on above: Result Comment: Refe rence Range: Negative Performed By: #### C UA2 #### [facility] [address] [place] [address] Cast, Hyaline 0 - 2 Normal [facility] Comment on above: Result Comment: Refe rence Range: Negative Performed By: #### C UA2 #### [facility] [address] [place] [address] Mucous Threads Few Normal [facility] Comment on above: Result Comment: Refe rence Range: Negative Performed By: #### C UA2 #### [facility] [address] [place] [address] RBC LM.HPF (Urine sed) [#/Area] 0 - 2 Normal [facility] Comment on above: Result Comment: Refe rence Range: 0-2 Performed By: #### C UA2 #### [facility] [address] [place] [address] Squamous Epithelial 0 - 2 Normal [facility] Comment on above: Result Comment: Refe rence Range: 3-5 Performed By: #### C UA2 #### [place] [address] [place] [address] WBC LM.HPF (Urine sed) [#/Area] 0 - 2 Normal [facility] Comment on above: Result Comment: Refe rence Range: 0-5 Performed By: #### C UA2 #### [facility] [address] [place] [address] Appearance (U) Clear Normal [facility] Comment on above: Result Comment: Refe rence Range: Clear Performed By: #### C UA2 #### [facility] [address] [place] [address] Bilirubin,Urine Negative Normal [facility] Comment on above: Result Comment: Refe rence Range: Negative Performed By: #### C UA2 #### [facility] [address] [place] [address] Color (U) Yellow Normal [facility] Comment on above: Result Comment: Refe rence Range: Lt. Yellow Performed By: #### C UA2 #### [facility] [address] [place] [address] Glucose Ql (U) Normal Normal [facility] Comment on above: Result Comment: Refe rence Range: Normal (<70) Performed By: #### C UA2 #### [facility] [address] [place] [address] Ketone,Urine Negative Normal [facility] Comment on above: Result Comment: Refe rence Range: Negative Performed By: #### C UA2 #### [facility] [address] [place] [address] Leukocytes,Urine 25 Rayray/uL Normal [facility] Comment on above: Result Comment: Refe rence Range: Negative Performed By: #### C UA2 #### [facility] [address] [place] [address] Nitrites,Urine Negative Normal [facility] Comment on above: Result Comment: Refe rence Range: Negative Performed By: #### C UA2 #### [facility] [address] [place] [address] Occult Blood,Urine Negative Normal [facility] Comment on above: Result Comment: Refe rence Range: Negative Performed By: #### C UA2 #### [facility] [address] [place] [address] pH (U) 6.5 Normal 5.0-8.0 [facility] Comment on above: Performed By: #### C UA2 #### [facility] [address] [place] [address] Protein (U) [Mass/Vol] 10 mg/dL Normal [facility] Comment on above: Result Comment: Refe rence Range: Negative Performed By: #### C UA2 #### [facility] [address] [place] [address] Specific [place],Urine 1.020 Normal 1.005-1.030 [facility] Comment on above: Performed By: #### C UA2 #### [facility] [address] [place] [address] Urobilinogen,Urine Normal Normal [facility] Comment on above: Result Comment: Refe rence Range: Normal (0-1) Performed By: #### C UA2 #### [facility] [address] [place] [address] Urinalysison 04-02-2019 Appearance (U) Clear [place] Comment on above: Reference Range: Zane ar Bacteria, UA Few (1-5) /[HPF] [place] Comment on above: Reference Range: Neg ative Bilirubin Urine Negative mg/dL [place] Comment on above: Reference Range: Neg ative Ca Oxalate Yocasta, UA Few (1-5) /[HPF] [place] Comment on above: Reference Range: Neg ative Color (U) Yellow [place] Comment on above: Reference Range: Lt. Yellow Glucose, Ur Normal mg/dL [place] Comment on above: Reference Range: Nor mal (<70) Hyaline Casts, UA 0-2 /[LPF] [place] Comment on above: Reference Range: Neg ative Ketones Ql (U) Negative mg/dL [place] Comment on above: Reference Range: Neg ative LEUKOCYTES, UA 25 Rayray/uL [place] Comment on above: Reference Range: Neg ative Mucous Threads Few /[LPF] [place] Comment on above: Reference Range: Neg ative Nitrite, Urine Negative [place] Comment on above: Reference Range: Neg ative Occult Blood,Urine Negative mg/dL [place] Comment on above: Reference Range: Neg ative pH (U) 6.5 [pH] [place] Protein (U) [Mass/Vol] 10 mg/dL [place], [place] Comment on above: Reference Range: Neg ative RBC (U) [#/Vol] 0-2 /[HPF] [place] Comment on above: Reference Range: 0-2 Specific [place], Urine 1.020 [place] Squam Epithel, UA 0-2 /[HPF] [place] Comment on above: Reference Range: 3-5 Urobilinogen, Urine Normal mg/dL [place] Comment on above: Reference Range: Nor mal (0-1) WBC, UA 0-2 /[HPF] [place] Comment on above: Reference Range: 0-5 Test Performed by [facility], [address] [place], [place] [address] [place] Group B Strep Screen PCRon 0 03-29-2019 Group B Strep Screen PCR Group B Strep S creen PCR --> Status: F NEGATIVE Expected Result: Negative CDC guidelines for prevention of Group B Strep disease recommends collection of both vaginal and rectal specimens for optimal recovery of GBS. Methodology - Real Time PCR (Cepheid) Expected Result: Negative CDC guidelines for prevention of Group B Strep disease recommends collection of both vaginal and rectal specimens for optimal recovery of GBS. Methodology - Real Time PCR (Cepheid) Normal [facility] Comment on above: Order Comment: Speci men Source Comment:Vaginal-Perirectal Performed By: #### G [facility] #### [address] [address] Vital Signs Date Time Vital Sign Value Performing Clinician Facility 05-25-2025 10:37-0400 Body height 175.3 cm Doron Gustafson MD Work Phone: [facility] 05-25-2025 10:37-0400 Body mass index (BMI) [Ratio] 43.86 kg/m2 Doron Gustafson MD Work Phone: [facility] 05-25-2025 10:37-0400 Body weight 134.72 kg Doron Gustafson MD Work Phone: [facility] 05-25-2025 10:37-0400 Diastolic blood pressure 85 mm[Hg] Doron Gustafson MD Work Phone: [facility] [employer] 05-25-2025 10:37-0400 Heart rate 84 /min Doron Gustafson MD Work Phone: [facility] [employer] 05-25-2025 10:37-0400 Systolic blood pressure 128 mm[Hg] Doron Gustafson MD Work Phone: [facility] [employer] 05-09-2025 13:47-0400 Body height 172.1 [address] [place] [employer] Work Phone: [employer] 05-09-2025 13:47-0400 Body mass index (BMI) [Ratio] 45.95 kg/m2 [facility] [place] [employer] Work Phone: [employer] 05-09-2025 13:47-0400 Body weight 136.08 [address] [facility] [place] [employer] Work Phone: [facility] [employer] 05-09-2025 13:47-0400 Diastolic blood pressure 68 mm[Hg] [facility] [place] [employer] Work Phone: [employer] 05-09-2025 13:47-0400 Heart rate 94 /min [facility] [place] [employer] Work Phone: [facility] [employer] 05-09-2025 13:47-0400 SaO2% (BldA) [Mass fraction] 98 % [facility] [place] [employer] Work Phone: [facility] [employer] 05-09-2025 13:47-0400 Systolic blood pressure 123 mm[Hg] [facility] [place] [employer] Work Phone: [employer] 04-30-2025 10:48-0400 Body height 172.1 cm Amber Herrsgay DO Work Phone: [employer] 04-30-2025 10:48-0400 Body mass index (BMI) [Ratio] 46.5 kg/m2 Amber Mikezsgay DO Work Phone: [facility] [employer] 04-30-2025 10:48-0400 Body temperature 97.9 [degF] Amber Pozsgay DO Work Phone: [facility] [employer] 04-30-2025 10:48-0400 Body weight 137.71 kg Amber Pozsgay DO Work Phone: [facility] [employer] 04-30-2025 10:48-0400 Diastolic blood pressure 81 mm[Hg] Amber Pozsgay DO Work Phone: [facility] [employer] 04-30-2025 10:48-0400 Heart rate 76 /min Amber Pozsgay DO Work Phone: [facility] [employer] 04-30-2025 10:48-0400 Respiratory rate 16 /min Amber Pozsgay DO Work Phone: [facility] [employer] 04-30-2025 10:48-0400 Systolic blood pressure 129 mm[Hg] Amber Pomikesgay DO Work Phone: [facility] [employer] 04-04-2025 14:04-0400 Body height 172.7 [address] [facility] [place] [employer] Work Phone: [employer] 04-04-2025 14:04-0400 Body mass index (BMI) [Ratio] 48.17 kg/m2 [facility] [place] [employer] Work Phone: [employer] 04-04-2025 14:04-0400 Body weight 143.7 kg [facility] [place] [employer] Work Phone: [facility] [employer] 04-04-2025 14:04-0400 Diastolic blood pressure 81 mm[Hg] [facility] [place] [employer] Work Phone: [employer] 04-04-2025 14:04-0400 Heart rate 97 /min [facility] [place] [employer] Work Phone: [employer] 04-04-2025 14:04-0400 SaO2% (BldA) [Mass fraction] 98 % [facility] [place] [employer] Work Phone: [facility] [employer] 04-04-2025 14:04-0400 Systolic blood pressure 128 mm[Hg] [facility] [place] [employer] Work Phone: [employer] 03-14-2025 14:29-0400 Body mass index (BMI) [Ratio] 47.53 kg/m2 [facility] [place] [employer] Work Phone: [employer] 03-14-2025 14:29-0400 Body weight 141.79 [address] [place] [employer] Work Phone: [employer] 02-28-2025 14:45-0400 Body height 172.7 [address] [place] [employer] Work Phone: [employer] 02-28-2025 14:45-0400 Body mass index (BMI) [Ratio] 47.74 kg/m2 [place] [employer] Work Phone: [employer] 02-28-2025 14:45-0400 Body weight 142.43 [address] [place] [employer] Work Phone: [employer] 02-28-2025 14:45-0400 Diastolic blood pressure 74 mm[Hg] [place] [employer] Work Phone: [facility] [employer] 02-28-2025 14:45-0400 Heart rate 97 /min [place] [employer] Work Phone: [employer] 02-28-2025 14:45-0400 SaO2% (BldA) [Mass fraction] 98 % [place] [employer] Work Phone: [employer] 02-28-2025 14:45-0400 Systolic blood pressure 119 mm[Hg] [place] [employer] Work Phone: [employer] 02-01-2025 17:14-0400 Body height 175.3 cm [employer] Work Phone: [employer] 02-01-2025 17:14-0400 Body mass index (BMI) [Ratio] 45.78 kg/m2 [employer] Work Phone: [facility] [employer] 02-01-2025 17:14-0400 Body temperature 98.01 [degF] Stormy Ken DO Work Phone: [facility] [employer] 02-01-2025 17:14-0400 Body weight 140.62 kg Stormy Ken DO Work Phone: [facility] [employer] 02-01-2025 17:14-0400 Diastolic blood pressure 88 mm[Hg] Stormy Ken DO Work Phone: [facility] [employer] 02-01-2025 17:14-0400 Heart rate 95 /min Stormy Ken DO Work Phone: [facility] [employer] 02-01-2025 17:14-0400 Respiratory rate 18 /min Stormy Ken DO Work Phone: [facility] [employer] 02-01-2025 17:14-0400 SaO2% (BldA) [Mass fraction] 99 % Stormy Ken DO Work Phone: [facility] [employer] 02-01-2025 17:14-0400 Systolic blood pressure 131 mm[Hg] Stormy Ken DO Work Phone: [facility] [employer] 01-10-2025 14:48-0400 Body height 172.[address] [facility] [place] [employer] Work Phone: [facility] [employer] 01-10-2025 14:48-0400 Body mass index (BMI) [Ratio] 48.72 kg/m2 [facility] [place] [employer] Work Phone: [facility] [employer] 01-10-2025 14:48-0400 Body weight 145.33 [address] [facility] [place] [employer] Work Phone: [facility] [employer] 01-10-2025 14:48-0400 Diastolic blood pressure 84 mm[Hg] [facility] [place] [employer] Work Phone: [facility] [employer] 01-10-2025 14:48-0400 Heart rate 68 /min [facility] [employer] Work Phone: [facility] [employer] 01-10-2025 14:48-0400 SaO2% (BldA) [Mass fraction] 98 % [facility] [place] [employer]N [employer] Work Phone: [facility] [employer] 01-10-2025 14:48-0400 Systolic blood pressure 133 mm[Hg] [facility] [place] [employer] Work Phone: [facility] [employer] 12-04-2024 15:21-0400 Body height 172.[address] [facility] [place] [employer] Work Phone: [facility] [employer] 12-04-2024 15:21-0400 Body mass index (BMI) [Ratio] 49.26 kg/m2 [facility] [place] [employer] Work Phone: [facility] [employer] 12-04-2024 15:21-0400 Body weight 146.[address] [place] [employer] Work Phone: [facility] [employer] 12-04-2024 15:21-0400 Diastolic blood pressure 86 mm[Hg] [facility] [place] [employer] Work Phone: [facility] [employer] 12-04-2024 15:21-0400 Heart rate 82 /min [facility] [employer]N [employer] Work Phone: [facility] [employer] 12-04-2024 15:21-0400 SaO2% (BldA) [Mass fraction] 94 % [facility] [place] [employer] Work Phone: [facility] [employer] 12-04-2024 15:21-0400 Systolic blood pressure 130 mm[Hg] [facility] [place] [employer] Work Phone: [facility] [employer] 11-30-2024 11:47-0400 Body temperature 98.78 [degF] KEELY RAMOS MD [facility] 11-30-2024 11:47-0400 Diastolic Blood Pressure Non-Invasive 77 mm[Hg] KEELY RAMOS MD [facility] 11-30-2024 11:47-0400 Heart rate 64 /min KEELY RAMOS MD [facility] 11-30-2024 11:47-0400 Respiratory rate 18 /min KEELY RAMOS MD [facility] 11-30-2024 11:47-0400 Systolic Blood Pressure Non-Invasive 128 mm[Hg] KEELY RAMOS MD [facility] 11-30-2024 09:49-0400 Body height 175.3 cm KEELY RAMOS MD [facility] 11-30-2024 09:49-0400 Body temperature 98.06 [degF] KEELY RAMOS MD [facility] 11-30-2024 09:49-0400 Body weight 143.1 kg KEELY RAMOS MD [facility] 11-30-2024 09:49-0400 Diastolic Blood Pressure Non-Invasive 81 mm[Hg] KEELY RAMOS MD [facility] 11-30-2024 09:49-0400 Heart rate 85 /min KEELY RAMOS MD [facility] 11-30-2024 09:49-0400 Respiratory rate 18 /min KEELY RAMOS MD [facility] 11-30-2024 09:49-0400 Systolic Blood Pressure Non-Invasive 119 mm[Hg] KEELY RAMOS MD [facility] 09-19-2024 11:56-0500 Body height 172.7 cm Iwona Concepcion MD Work Phone: [employer] 09-19-2024 11:56-0500 Body mass index (BMI) [Ratio] 50.21 kg/m2 Iwona Concepcion MD Work Phone: [employer] 09-19-2024 11:56-0500 Body weight 149.78 kg Iwona Concepcion MD Work Phone: [employer] 09-19-2024 11:56-0500 Diastolic blood pressure 84 mm[Hg] Iwona Concepcion MD Work Phone: [employer] 09-19-2024 11:56-0500 Heart rate 81 /min Iwona Concepcion MD Work Phone: [employer] 09-19-2024 11:56-0500 Systolic blood pressure 131 mm[Hg] Iwona Concepcion MD Work Phone: [employer] 09-14-2024 15:48-0500 Body height 172.7 cm Mejgon Kellen DO Work Phone: [employer] 09-14-2024 15:48-0500 Body mass index (BMI) [Ratio] 50.18 kg/m2 Mejgon Kellen DO Work Phone: [employer] 09-14-2024 15:48-0500 Body temperature 97.59 [degF] Mejgon Kellen DO Work Phone: [employer] 09-14-2024 15:48-0500 Body weight 149.69 kg Mejgon Kellen DO Work Phone: [employer] 09-14-2024 15:48-0500 Diastolic blood pressure 99 mm[Hg] Mejgon Kellen DO Work Phone: [employer] 09-14-2024 15:48-0500 Heart rate 64 /min Mejgon Kellen DO Work Phone: [employer] 09-14-2024 15:48-0500 Respiratory rate 16 /min Mejgon Kellen DO Work Phone: [employer] 09-14-2024 15:48-0500 SaO2% (BldA) [Mass fraction] 98 % Cricket Foreman DO Work Phone: [facility] [employer] 09-14-2024 15:48-0500 Systolic blood pressure 156 mm[Hg] Cricket Foreman DO Work Phone: [facility] [employer] 09-14-2024 15:29-0500 Diastolic blood pressure 84 mm[Hg] Andrea Duff DO Work Phone: [employer] 09-14-2024 15:29-0500 Heart rate 72 /min Andrea Duff DO Work Phone: [employer] 09-14-2024 15:29-0500 Systolic blood pressure 152 mm[Hg] Andrea Duff DO Work Phone: [employer] 09-14-2024 14:45-0500 Body height 172.7 cm Andrea Harta DO Work Phone: [employer] 09-14-2024 14:45-0500 Body mass index (BMI) [Ratio] 51.21 kg/m2 Andrea Harta DO Work Phone: [employer] 09-14-2024 14:45-0500 Body temperature 97.3 [degF] Andrea Duff DO Work Phone: [employer] 09-14-2024 14:45-0500 Body weight 152.77 kg Andrea Duff DO Work Phone: [employer] 09-14-2024 14:45-0500 SaO2% (BldA) [Mass fraction] 98 % Andrea Harta DO Work Phone: [employer] 04-28-2024 09:17-0400 Body height 172.[address] [place] [employer] Work Phone: [employer] 04-28-2024 09:17-0400 Body mass index (BMI) [Ratio] 50.69 kg/m2 [place] [employer] Work Phone: [employer] 04-28-2024 09:17-0400 Body weight 151.[address] [place] [employer] [facility] 04-28-2024 09:17-0400 Diastolic blood pressure 72 mm[Hg] [place] [employer] Work Phone: [facility] [employer] 04-28-2024 09:17-0400 Heart rate 67 /min [facility] [place] [employer] Work Phone: [facility] [employer] 04-28-2024 09:17-0400 SaO2% (BldA) [Mass fraction] 98 % [place] [employer] Work Phone: [facility] [employer] 04-28-2024 09:17-0400 Systolic blood pressure 108 mm[Hg] [facility] [place] [employer] Work Phone: [facility] [employer] 06-05-2023 19:20-0400 Body height 175.3 cm ENRICO NEVAEHESKA DO [facility] 06-05-2023 19:20-0400 Body temperature 97.88 [degF] ENRICO DURESKA DO [facility] 06-05-2023 19:20-0400 Body weight 140.9 kg ENRICO DURESKA DO [facility] 06-05-2023 19:20-0400 Diastolic Blood Pressure Non-Invasive 72 1 ENRICO DURESKA DO [facility] 06-05-2023 19:20-0400 Heart rate 87 /min ENRICO DURESKA DO [facility] 06-05-2023 19:20-0400 Respiratory rate 20 /min ENRICO DURESKA DO [facility] 06-05-2023 19:20-0400 Systolic Blood Pressure Non-Invasive 127 1 ENRICO DURESKA DO [facility] 03-05-2023 20:51-0400 Heart rate 90 /min ENRICO DURESKA DO [facility] 03-05-2023 20:51-0400 Respiratory rate 16 /min ENRICO DURESKA DO [facility] 03-05-2023 20:28-0400 Body height 172.7 cm ENRICO DURESKA DO [facility] 03-05-2023 20:28-0400 Body temperature 98.24 [degF] ENRICO DURESKA DO [facility] 03-05-2023 20:28-0400 Body weight 140.9 kg ENRICO DURESKA DO [facility] 03-05-2023 20:28-0400 Diastolic Blood Pressure Non-Invasive 83 1 ENRICO DURESKA DO [facility] 03-05-2023 20:28-0400 Heart rate 91 /min ENRICO DURESKA DO [facility] 03-05-2023 20:28-0400 Respiratory rate 16 /min ENRICO DURESKA DO [facility] 03-05-2023 20:28-0400 Systolic Blood Pressure Non-Invasive 124 1 ENRICO DURESKA DO [facility] 11-20-2022 22:36-0400 Diastolic blood pressure 62 mm[Hg] MD NEGRO GARBER Work Phone: [facility] 11-20-2022 22:36-0400 Heart rate 89 /min MD NEGRO GARBER Work Phone: [facility] 11-20-2022 22:36-0400 Respiratory rate 18 /min MD NEGRO GARBER Work Phone: [facility] 11-20-2022 22:36-0400 SaO2% (BldA) [Mass fraction] 98 % MD NEGRO GARBER Work Phone: [facility] 11-20-2022 22:36-0400 Systolic blood pressure 101 mm[Hg] MD NEGRO GARBER Work Phone: [facility] 11-20-2022 20:16-0400 Body temperature 97.4 [degF] MD NEGRO GARBER Work Phone: [facility] 11-20-2022 20:16-0400 Body weight 140.62 kg MD NEGRO GARBER Work Phone: [facility] 09-07-2022 10:08-0500 Body height 173 cm MATTHEW LAROSE MD [facility] 09-07-2022 10:08-0500 Body temperature 97.88 [degF] MATTHEW LAROSE MD [facility] 09-07-2022 10:08-0500 Body weight 141 kg MATTHEW LAROSE MD [facility] 09-07-2022 10:08-0500 Diastolic Blood Pressure Non-Invasive 57 1 MATTHEW LAROSE MD [facility] 09-07-2022 10:08-0500 Heart rate 92 /min MATTHEW LAROSE MD [facility] 09-07-2022 10:08-0500 Respiratory rate 18 /min MATTHEW LAROSE MD [facility] 09-07-2022 10:08-0500 Systolic Blood Pressure Non-Invasive 116 1 MATTHEW LAROSE MD [facility] 04-26-2022 10:27-0400 Body temperature 98.24 [degF] GALO GALLEGOS MD [facility] 04-26-2022 10:27-0400 Diastolic blood pressure 99 mm[Hg] GALO GALLEGOS MD [facility] 04-26-2022 10:27-0400 Heart rate 99 /min GALO GALLEGOS MD [facility] 04-26-2022 10:27-0400 Mean blood pressure 121 mm[Hg] GALO GALLEGOS MD [facility] 04-26-2022 10:27-0400 Respiratory rate 16 /min GALO GALLEGOS MD [facility] 04-26-2022 10:27-0400 Systolic blood pressure 165 mm[Hg] GALO GALLEGOS MD [facility] 01-21-2022 17:44-0400 Body height 175.[address] ALTHEA NORRIS MD [facility] 01-21-2022 17:44-0400 Body temperature 98.24 [degF] DR ALTHEA NORRIS MD [facility] 01-21-2022 17:44-0400 Body weight 140.[address] ALTHEA NORRIS MD [facility] 01-21-2022 17:44-0400 Diastolic blood pressure 82 mm[Hg] DR ALTHEA NORRIS MD [facility] 01-21-2022 17:44-0400 Heart rate 112 /min DR ALTHEA NORRIS MD [facility] 01-21-2022 17:44-0400 Respiratory rate 24 /min DR ALTHEA NORRIS MD [facility] 01-21-2022 17:44-0400 Systolic blood pressure 174 mm[Hg] DR ALTHEA NORRIS MD [facility] 12-01-2019 19:57-0400 BP Diastolic 93 mm[Hg] [facility]essandra [facility] [place] 12-01-2019 19:57-0400 BP Systolic 120 mm[Hg] [facility] [place] 12-01-2019 19:57-0400 Pulse (Heart Rate) 89 /min [facility]ess[facility] [place] 12-01-2019 19:57-0400 Pulse Oximetry 99 % Alessandra [facility] [place] 12-01-2019 19:57-0400 Respiratory Rate 20 /min Alessandra [employer], [facility]Re[facility] [place] 12-01-2019 18:18-0400 Body Temperature 97.81 [degF] Alessandra [facility] [place] 11-11-2019 20:35-0400 BP Diastolic 68 mm[Hg] [facility] [place] [facility] [place] 11-11-2019 20:35-0400 BP Systolic 122 mm[Hg] [facility] [place] , [place] 11-11-2019 20:35-0400 Pulse (Heart Rate) 78 /min [facility] [place] 11-11-2019 20:35-0400 Pulse Oximetry 100 % [facility] [place] 11-11-2019 20:35-0400 Respiratory Rate 18 /min [facility] [place] 11-11-2019 17:47-0400 Body Temperature 98.1 [degF] Mickey Schneider [facility], [place] 07-06-2019 16:54-0500 Body Temperature 98.8 [degF] [facility], [place] 07-06-2019 16:54-0500 BP Diastolic 99 mm[Hg] [facility] , [place] 07-06-2019 16:54-0500 BP Systolic 147 mm[Hg] [facility] , [place] 07-06-2019 16:54-0500 Pulse (Heart Rate) 78 /min [facility], [place] 07-06-2019 16:54-0500 Pulse Oximetry 100 % [facility] , [place] 07-06-2019 16:54-0500 Respiratory Rate 18 /min [facility], [place] 04-20-2019 23:29-0400 BP Diastolic 76 mm[Hg] [facility], [place] 04-20-2019 23:29-0400 BP Systolic 128 mm[Hg] [facility], [place] 04-20-2019 23:29-0400 Pulse (Heart Rate) 102 /min [facility], [place] 04-20-2019 23:29-0400 Pulse Oximetry 100 % [facility], [place] 04-20-2019 23:29-0400 Respiratory Rate 16 /min [facility], [place] 04-20-2019 18:44-0400 BMI (Body Mass Index) 44.3 kg/m2 [facility] 04-20-2019 18:44-0400 Body Temperature 98.2 [degF] [facility], [place] 04-20-2019 18:44-0400 Body weight 136.08 kg [facility], [place] 04-20-2019 18:44-0400 Height 175.3 cm [facility], [place] 04-11-2019 07:31-0400 Body Temperature 98.1 [degF] [facility] [place] 04-11-2019 07:31-0400 BP Diastolic 72 mm[Hg] [facility], [place] 04-11-2019 07:31-0400 BP Systolic 137 mm[Hg] [facility] [place] 04-11-2019 07:31-0400 Pulse (Heart Rate) 80 /min [facility] [place] 04-11-2019 07:31-0400 Respiratory Rate 20 /min [facility], [place] 04-09-2019 16:45-0400 Pulse Oximetry 100 % [facility], [place] 04-08-2019 19:10-0400 BMI (Body Mass Index) 46.96 kg/m2 [facility], [place] 04-08-2019 19:10-0400 Body weight 144.24 kg [facility], [place] 04-08-2019 18:55-0400 Height 175.3 cm [facility], [place] 04-02-2019 15:57-0400 BMI (Body Mass Index) 47.11 kg/m2 [facility], [place] 04-02-2019 15:57-0400 Body Temperature 98.29 [degF] [facility], [place] 04-02-2019 15:57-0400 Body weight 144.7 kg [facility], [place] 04-02-2019 15:57-0400 BP Diastolic 68 mm[Hg] [facility], [place] 04-02-2019 15:57-0400 BP Systolic 135 mm[Hg] [facility], [place] 04-02-2019 15:57-0400 Height 175.3 cm [facility], [place] 04-02-2019 15:57-0400 Pulse (Heart Rate) 117 /min [facility]Ad[facility], [place] 04-02-2019 15:57-0400 Respiratory Rate 22 /min Choco Huber [facility], [place] 03-28-2019 19:02-0400 BMI (Body Mass Index) 48.81 kg/m2 Choco Cuello [facility], [place] 03-28-2019 19:02-0400 Body weight 145.6 kg Choco Huber [facility], [place] 03-28-2019 19:02-0400 Height 172.7 cm Choco Huber [facility], [place] 03-28-2019 19:02-0400 Respiratory Rate 18 /min [facility], [place] Encounters Encounter Date Encounter Type Care Provider Facility Start: 06-07-2025 End: 06-07-2025 [place] [employer] Work Phone: [facility] Comment on above: Type 2 diabetes tete itus with morbid obesity (HCC); Morbid obesity with BMI of 45.0-49.9, adult (CMS/HCC) Start: 05-25-2025 End: 05-25-2025 ambulatory [facility] Start: 05-25-2025 End: 05-25-2025 Office outpatient new 30 minutes Doron Gustafson MD Work Phone: [facility] - [place] Comment on above: Abnormal uterine ble eding (AUB) (Primary Dx); Family history of malignant neoplasm of ovary Start: 05-25-2025 End: 05-25-2025 ambulatory [facility] Start: 05-13-2025 End: 05-14-[address] [facility] [employer] Work Phone: [facility] Comment on above: Type 2 diabetes tete itus with morbid obesity (HCC); Morbid obesity with BMI of 45.0-49.9, adult (CMS/HCC) Start: 05-09-2025 End: 05-09-2025 [facility] Start: 05-09-2025 End: 05-09-2025 Office outpatient visit [address] [facility] [employer] Work Phone: [facility] Comment on above: Morbid obesity with BMI of 45.0-49.9, adult (CMS/HCC) (Primary Dx); Hand, foot and mouth disease Start: 05-08-2025 End: 05-09-2025 Telephone encounter Jacky Solares MD Work Phone: [facility] Comment on above: Other (Concerns / ve rifying pictures received ) Start: 05-07-2025 End: 06-11-2025 ambulatory Ca Mondragon RN [facility] Clinical Communication Start: 05-07-2025 End: 06-11-2025 Patient encounter procedure Ca Mondragon RN [facility] Clinical Communication Start: 05-07-2025 End: 05-07-2025 Emergency department patient visit KEELY RAMOS MD [facility] Start: 04-30-2025 End: 04-30-2025 Patient encounter status Amber García DO Work Phone: [facility] [employer] Start: 04-30-2025 End: 04-30-2025 Telephone encounter Amber García DO Work Phone: [facility] Greg Garcia Comment on above: Other (Financial Avelino e 2024); Surgery Scheduling (Initial Scheduling Orders Pended) Other (Financial Avelino e 2024); Surgery Scheduling (Initial Scheduling Orders Pended); Withdrawal (Opted out of surgical program ) Start: 04-30-2025 End: 04-30-2025 Office outpatient new 45 minutes Amber García DO Work Phone: [facility] Greg Garcia Comment on above: Morbid obesity, unsp ecified obesity type (HCC) (Primary Dx); Morbid obesity with BMI of 45.0-49.9, adult (HCC); Type 2 diabetes mellitus with morbid obesity (HCC) Start: 04-30-2025 End: 04-30-2025 ambulatory JACKY SOLARES [facility] Start: 04-17-2025 End: 04-18-[address] [facility] [employer] Work Phone: [facility] Comment on above: Prior Authorization (PA was denied, patient notified and wants to try Trulicity if we can get it covered through insurance if not then she wants to try Adipex route again. Patient did state her insurance would be changing soon and will no longer be on Medicaid. PA denial will be scanned into patients chart with denial reasons provided. Denial put on providers desk for review. ) Start: 04-04-2025 End: 04-04-2025 Office outpatient visit [address] [facility] [employer] Work Phone: [facility] Comment on above: Type 2 diabetes tete itus with morbid obesity (HCC) (Primary Dx); Morbid obesity with BMI of 45.0-49.9, adult (HCC) Start: 04-04-2025 End: 04-04-2025 ambulatory [facility] Start: 03-14-2025 End: 03-14-2025 Office outpatient visit [address] [facility] [employer] Work Phone: [facility] Comment on above: Morbid obesity with BMI of 45.0-49.9, adult (HCC) (Primary Dx) Start: 03-14-2025 End: 03-14-2025 ambulatory [facility] Start: 02-28-2025 End: 02-28-2025 Office outpatient visit 25 [address] [facility] [employer] Work Phone: [facility] Comment on above: Type 2 diabetes tete itus with morbid obesity (HCC) (Primary Dx); Morbid obesity with BMI of 45.0-49.9, adult (HCC); Vaginal bleeding; Pap smear of cervix with ASCUS, cannot exclude HGSIL Start: 02-28-2025 End: 02-28-2025 ambulatory [facility] Start: 02-28-2025 End: 04-30-2025 Follow-up encounter [facility] [employer] Work Phone: [facility] Comment on above: AMB POC HEMOGLOBIN A 1C Start: 02-12-2025 End: 02-12-2025 Refill Jacky Solares MD Work Phone: [facility] Comment on above: Morbid obesity with BMI of 45.0-49.9, adult (HCC) Start: 02-01-2025 End: 02-01-2025 Emergency department patient visit Stormy Hogan Bessie GARNER Work Phone: [facility] Comment on above: Vaginal bleeding (Pr imary Dx) Start: 02-01-2025 End: 02-04-2025 ambulatory Arlyn Knutson RN [facility] Clinical Communication Start: 02-01-2025 End: 02-04-2025 Patient encounter procedure Arlyn Knutson RN [facility] Clinical Communication Start: 01-11-2025 End: 03-13-2025 Follow-up encounter Mt Garza CNP Work Phone: [facility] Comment on above: Hepatic function friend el, Microalbumin / creatinine urine ratio Start: 01-10-2025 End: 01-10-2025 Office outpatient visit 25 minutes Mt South APRN - [place] Work Phone: [facility] Comment on above: Type 2 diabetes tete itus with morbid obesity (HCC) (Primary Dx); Encounter for diabetic foot exam (HCC); Encounter for diabetes education; Morbid obesity with BMI of 45.0-49.9, adult (HCC); Elevated liver enzymes; Intractable migraine with aura without status migrainosus Start: 01-10-2025 End: 01-10-2025 ambulatory JACKY SOLARES [facility] Start: 12-09-2024 End: 12-09-2024 Subsequent hospital visit by physician Mt South APRN - [employer] Work Phone: [facility] Imaging Comment on above: RUQ abdominal pain Start: 12-09-2024 End: 12-09-2024 ambulatory MT SOUTH [facility] Start: 12-07-2024 End: 12-07-2024 Orders Only Mt S Brannon [employer]CRETE [employer] - [employer] Work Phone: [facility] Comment on above: Type 2 diabetes tete itus with morbid obesity (HCC) (Primary Dx) Start: 12-06-2024 End: 12-06-2024 ambulatory JACKY SOLARES [facility] Start: 12-05-2024 End: 12-05-2024 Orders Only Mt South [employer]CR[employer]E [employer] Work Phone: [facility] Comment on above: Elevated fasting glu cose (Primary Dx) Start: 12-04-2024 End: 12-04-2024 Initial preventive medicine new pt age 18-39yrs Mt South [employer]CRETE [employer] - [employer] Work Phone: [facility] Comment on above: Well adult exam (Shara amado Dx); Encounter to establish care; Exercise-induced asthma; URI with cough and congestion; Morbid obesity with BMI of 45.0-49.9, adult (HCC); Amenorrhea; RUQ abdominal pain; Nausea; Screening for diabetes mellitus; Screening for deficiency anemia; Screening for lipoid disorders; Intractable migraine with aura without status migrainosus; Inflammatory arthritis; Celiac disease Start: 12-04-2024 End: 12-04-2024 Patient encounter status Mt South CONCRETE [employer] Work Phone: [facility] Work Phone: Start: 12-04-2024 End: 12-04-2024 ambulatory MT [facility] Start: 12-04-2024 End: 12-04-2024 Encounter for general adult medical examination without abnormal findings [facility] Start: 11-30-2024 End: 11-30-2024 Emergency department patient visit KEELY RAMOS MD [facility] Start: 10-11-2024 End: 10-13-2024 Telephone encounter Iwona Concepcion MD Work Phone: [facility] Comment on above: Results Start: 10-06-2024 End: 10-07-2024 ambulatory Iwona Concepcion MD Work Phone: [facility] Sleep Lab Comment on above: Obstructive sleep ap mazin Start: 09-19-2024 End: 09-19-2024 Subsequent hospital visit by physician Iwona Concepcion MD Work Phone: [facility] X-ray Imaging Comment on above: Cervico-occipital ne uralgia of right side Start: 09-19-2024 End: 09-19-2024 ambulatory IWONA CONCEPCION [facility] Start: 09-19-2024 End: 09-19-2024 Office outpatient new 45 minutes Iwona Concepcion MD Work Phone: [facility] Comment on above: Intractable migraine with aura without status migrainosus (Primary Dx); Cervico-occipital neuralgia of right side; Obstructive sleep apnea Start: 09-19-2024 End: 09-19-2024 ambulatory CRICKET KELLEN [facility] Start: 09-14-2024 End: 09-14-2024 Subsequent hospital visit by physician [facility] Ct Exam Room [address] [facility] Comment on above: Arrived Start: 09-14-2024 End: 09-14-2024 Emergency department patient visit Cricket Johnson Kellen DO Work Phone: [facility] ED Comment on above: Acute nonintractable headache, unspecified headache type (Primary Dx) Start: 09-14-2024 End: 09-14-2024 Office outpatient visit 15 minutes Andrea Duff DO Work Phone: [facility] Comment on above: Other migraine with status migrainosus, intractable (Primary Dx); Nausea and vomiting, unspecified vomiting type; Elevated blood pressure reading without diagnosis of hypertension Start: 09-14-2024 End: 09-14-2024 [facility] Start: 09-13-2024 End: 09-13-2024 [facility]ulatory [facility] Start: 09-13-2024 End: 09-13-2024 Patient encounter procedure Negro Parker RN [facility] Clinical Communication Start: 04-28-2024 End: 04-28-2024 Office outpatient visit 15 minutes [facility] South [employer]CR[employer]E [employer] Work Phone: [facility] Comment on above: Allergic contact ayden matitis due to other agents (Primary Dx); Influenza vaccine refused Start: 04-27-2024 End: 04-27-2024 ambulatory Layla Duarte RN [facility] Clinical Communication Start: 04-27-2024 End: 04-27-2024 Patient encounter procedure Layla Duarte RN [facility] Clinical Communication Start: 06-05-2023 End: 06-05-2023 Emergency department patient visit DR ALEX ORTEGA MD Facility:B Start: 06-05-2023 End: 06-05-2023 Emergency department patient visit ENRICO HAJI DO [facility] Start: 03-05-2023 End: 03-05-2023 Emergency department patient visit DR ALEX ORTEGA MD Facility:B Start: 03-05-2023 End: 03-05-2023 Emergency department patient visit ENRICO HAJI DO [facility] Start: 11-20-2022 End: 11-21-2022 Emergency department patient visit NEGRO GARBER Facility: Start: 11-20-2022 End: 11-20-2022 Emergency department patient visit MD NEGRO GARBER Work Phone: [facility] Start: 09-07-2022 End: 09-07-2022 Emergency department patient visit MATTHEW LAROSE MD Facility:B Start: 09-07-2022 End: 09-07-2022 Emergency department patient visit MATTHEW LAROSE MD [facility] Start: 04-26-2022 End: 04-26-2022 Emergency department patient visit GALO GALLEGOS MD [facility] Start: 01-21-2022 End: 01-21-2022 Emergency department patient visit DR ALTHEA NORRIS MD [facility] Start: 02-01-2020 End: 02-01-2020 Subsequent hospital visit by physician Alex Ortega Work Phone: [facility] [place] [facility] Start: 01-25-2020 End: 01-25-2020 Subsequent hospital visit by physician Alex Ortega Work Phone: [facility] [place] [facility] Start: 01-22-2020 End: 01-22-2020 Subsequent hospital visit by physician Alex Ortega Work Phone: [facility] [place] [facility] Start: 01-18-2020 End: 01-18-2020 Subsequent hospital visit by physician Alex Ortega Work Phone: [facility] [place] [facility] Start: 01-15-2020 End: 01-15-2020 Subsequent hospital visit by physician Alex Ortega Work Phone: [facility] [place] [facility] Start: 01-11-2020 End: 01-11-2020 Subsequent hospital visit by physician Alex Ortega Work Phone: [facility] [place] [facility] Start: 12-14-2019 End: 12-14-2019 Subsequent hospital visit by physician Alex Ortega Work Phone: [facility] Comment on above: Intractable headache , unspecified chronicity pattern, unspecified headache type Start: 12-01-2019 End: 12-01-2019 Emergency department patient visit Alessandra Osman Work Phone: [facility] Comment on above: Lumbar contusion, in itial encounter (Primary Dx) Start: 11-11-2019 End: 11-11-2019 Emergency department patient visit Mickey Schneider Work Phone: [facility] Comment on above: Intractable headache , unspecified chronicity pattern, unspecified headache type (Primary Dx); Headache disorder; Anxiety state; Shortness of breath Start: 07-06-2019 End: 07-06-2019 Emergency department patient visit Alonso Stein Work Phone: [facility] ED Comment on above: Oral pain (Primary D x) Start: 05-30-2019 End: 05-30-2019 Subsequent hospital visit by physician Ashish Perez Work Phone: [facility] PFT Comment on above: Mild persistent asth ma, unspecified whether complicated Start: 04-20-2019 End: 04-20-2019 Emergency department patient visit Cheko Avina Work Phone: [facility] ED Comment on above: Pneumonia due to org anism (Primary Dx); Tobacco abuse Start: 04-08-2019 End: 04-11-2019 Evaluation and management of inpatient Choco Huber Work Phone: [facility] Comment on above: delivery de livered (Primary Dx) Start: 04-02-2019 End: 04-02-2019 Subsequent hospital visit by physician Choco Huber Work Phone: [facility] Start: 03-28-2019 End: 03-28-2019 Subsequent hospital visit by physician Choco Huber Work Phone: [facility] Procedures Date Procedure Procedure Detail Performing Clinician Start: 02-28-2025 Hemoglobin glycosylated a1c Mt Tanesha Brannon CONCRETE BLOCK MAKER - [facility] Work Phone: Start: 02-01-2025 transvaginal La Ken DO Work Phone: Start: 02-01-2025 Antibody screen JACKY SOLARES Comment on above: Performed By: #### L [id number] #### Freelance Web Designer: GEORGI CARY ([id number]) JULIA BLEVINS ([facility] [address] Start: 02-01-2025 Basic metabolic pane l calcium total Stormy Ken DO Work Phone: Start: 02-01-2025 Blood typing serologic abo Stormy Ken DO Work Phone: Start: 12-09-2024 Us abdominal real ti me w/image documentation Mt South CONCRETE BLOCK [employer] - [employer] Work Phone: Start: 12-04-2024 Lipid 1996 panel - S marni or Plasma Mt South [employer]CRETE [employer] - [employer] Work Phone: Start: 12-01-2024 Adult depression scr eening assessment Mt South [employer]CRETE [employer] - [employer] Work Phone: Start: 09-14-2024 Ct head/brain w/o co ntrast material Mejgon Z Kellen DO Work Phone: Start: 09-14-2024 Basic metabolic pane l calcium total Mejgon Z Kellen DO Work Phone: Start: 12-14-2019 Mri brain brain stem w/o w/contrast material Alex Ortega Work Phone: Start: 12-01-2019 Radex spine lumbosac ral 2/3 views Alessandra Adusumilli Work Phone: Start: 11-11-2019 Radiologic exam ches t 2 views Alonso Stein Work Phone: Start: 11-11-2019 Assay of ferritin Mickey Jacey Patelobelobethany Work Phone: Start: 11-11-2019 Assay of lactate Mickey M Skobeloff Work Phone: Start: 11-11-2019 Blood count complete auto&auto difrntl wbc Mickey M Skobeloff Work Phone: Start: 11-11-2019 C-reactive protein Mickey M Skobeloff Work Phone: Start: 11-11-2019 Comprehensive metabo lic panel Mickey M Skobeloff Work Phone: Start: 11-11-2019 Creatine kinase total E mil M Skobelo Work Phone: Start: 11-11-2019 Lactate dehydrogenase ldh Mickey M Skobeloff Work Phone: Start: 11-11-2019 Ecg routine ecg w/le ast 12 lds w/i&r Alonso Sarita Work Phone: Start: 05-30-2019 Brncdilat rspse spmt ry pre&post-brncdilat admn Ashish Perez Work Phone: Start: 04-26-2019 Microscopic examinat ion of blood, culture Comment on above: Order Comment: Speci men Source Comment:Blood Performed By: #### C UA2 #### Farman [address] [place] [address] Performed By: #### H EMOG, CMP3 #### [facility]man [address] [place] [address] Start: 04-20-2019 CT ABDOMEN PELVIS W CONTRAST Cheko Avina Work Phone: Start: 04-20-2019 Ct angiography chest w/contrast/noncontrast Cheko Avina Work Phone: Start: 04-20-2019 Urnls dip stick/tabl et rgnt auto w/o microscopy Cheko Avina Work Phone: Start: 04-20-2019 Radiologic exam ches t 2 views Alessandra Osman Work Phone: Start: 04-20-2019 Assay of lipase Cheko Avina Work Phone: Start: 04-20-2019 Basic metabolic pane l calcium total Alessandra Osman Work Phone: Start: 04-20-2019 Blood count complete auto&auto difrntl wbc Alessandra Osman Work Phone: Start: 04-20-2019 Fibrin dgradj produc ts d-dimer quantitative Cheko Avina Work Phone: Start: 04-10-2019 Blood count hemoglobin [employer] Work Phone: Start: 04-09-2019 Blood typing serologic abo [employer] Work Phone: Start: 04-09-2019 Blood count complete automated Matthew Méndez Work Phone: Start: 04-08-2019 Blood count complete automated Matthew Méndez Work Phone: Start: 04-08-2019 Comprehensive metabo lic panel Matthew Méndez Work Phone: Start: 04-08-2019 Urnls dip stick/tabl et rgnt auto w/o microscopy Matthew Méndez Work Phone: Start: 04-08-2019 Us pelvic nonobstetr ic real-time image complete Matthew Méndez Work Phone: Start: 04-08-2019 Us retroperitoneal r eal time w/image complete Matthew Méndez Work Phone: Start: 04-02-2019 Urnls dip stick/tabl et rgnt auto w/o microscopy Rob Polanco Work Phone: Ligation of fallopian tube Gonzalo NORRIS MD None (qualifier value) DR VIRGILIO NORRIS MD Plan of Treatment Date Care Activity Detail Author Start: 11-17-2067 RSV Immunization for Adults (1 - 1-dose 75+ series) RSV Immunization for Adults (1 - 1-dose 75+ series) [facility] Start: 2052 RSV Immunization aged 60 or older (1 - 1-dose 60+ series) RSV Immunization aged 60 or older (1 - 1-dose 60+ series) [facility] Start: 2042 Zoster Vaccines (1 of 2) Zoster Vaccines (1 of 2) [facility] Start: 12-04-2029 Lipid panel Lipid Panel [facility] Start: 02-28-2026 Hemoglobin A1c measurement Diabetes: Hemoglobin A1C [facility] Start: 02-01-2026 Diabetes: Estimated Glomerular Filtration Rate for Kidney Health Diabetes: Estimated Glomerular Filtration Rate for Kidney Health [facility] Start: 01-10-2026 Diabetes: Urine Albumin-Creatinine Ratio for Kidney Health Diabetes: Urine Albumin-Creatinine Ratio for Kidney Health [facility] Start: 01-10-2026 Diabetic foot examination Diabetes: Foot Exam [facility] Start: 12-06-2025 Hemoglobin A1c measurement Diabetes: Hemoglobin A1C [facility] Start: 12-04-2025 COVID-19 Vaccine ( season) COVID-19 Vaccine () [facility] Comment on above: Postponed from 04/09/2024 (Patient Refus ed) Start: 12-04-2025 Diabetes: Estimated Glomerular Filtration Rate for Kidney Health Diabetes: Estimated Glomerular Filtration Rate for Kidney Health [facility] Start: 12-04-2025 Hepatitis B Vaccines (1 of 3 - 19+ 3-dose series) Hepatitis B Vaccines (1 of 3 - 19+ 3-dose series) [facility] Comment on above: Postponed from 11/17/2011 (Patient Refus ed) Start: 12-04-2025 Hepatitis C screening Hepatitis C Screening [facility] Comment on above: Postponed from 2010 (Patient Refus ed) Start: 12-04-2025 HIV screening HIV Screening [facility] Comment on above: Postponed from 1992 (Patient Refus ed) Start: 12-04-2025 Lipid panel Lipid Panel [facility] Start: 12-04-2025 Pneumococcal Vaccine: Pediatrics (0 to 5 Years) and At-Risk Patients (6 to 49 Years) (1 of 2 - PCV) Pneumococcal Vaccine: Pediatrics (0 to 5 Years) and At-Risk Patients (6 to 49 Years) (1 of 2 - PCV) [facility] Comment on above: Postponed from 11/17/2011 (Patient Refus ed) Start: 12-01-2025 Depression Screening Depression Screening [facility] Start: 08-22-2025 End: 08-22-2025 Patient encounter procedure 08/22/2025 9:40 AM EST Office Visit [facility] [place] [address] [place] [address] Mt South, VIKI - [place] [address] [facility] [place] [address] [facility] [place] Start: 07-18-2025 End: 07-18-2025 Telemedicine consultation with patient 07/18/2025 7:00 AM EST Telemedicine [facility] Management - [place] [address] [place] [address] Amber García DO [address] [place] [address] [facility] [place] Start: 07-13-2025 End: 07-13-2025 Patient encounter procedure 07/13/2025 10:30 AM EST Procedure Visit [facility] Obstetrics [facility]ne[facility] [place] [address] [place] [address] Doron Gustafson MD [address] [place] [address] [facility]etrics [facility] - [place] Start: 05-25-2025 End: 05-25-2026 17-Hydroxyprogesterone [facility] Comment on above: Expected: 05/25/2025 (Approximate), Expi res: 05/25/2026 Start: 05-25-2025 End: 05-25-2026 Testosterone, Free (Dialysis), Total (MS) and Sex Hormone Binding Globulin [facility] Work Phone: Comment on above: Expected: 05/25/2025 (Approximate), Expi res: 05/25/2026 Start: 05-25-2025 End: 05-25-2025 Patient encounter procedure 05/25/2025 10:30 AM EDT Office Visit [facility] Obstetrics and Gynecology - [place] [address] [place] [phone] Doron Gustafson MD [address] [place] [address] [place], [place] [id number] [facility] Ob[facility]etrics [facility] Gyne[facility] - [place] Start: 05-18-2025 End: 05-18-2025 Patient encounter procedure 05/18/2025 2:00 PM EDT Office Visit [facility] - [place] [address] [place] [address] [place] [address] Citlaly Portillo, CONCRETE BLOCK MAKER - [employer] [address] [place] [address] [facility] Management [facility] Start: 05-09-2025 End: 05-09-2025 Patient encounter procedure 05/09/2025 1:40 PM EDT Office Visit [facility] [address] [place] [address] [place] [address] Mt South, CONCRETE BLOCK MAKER [employer] [address] [place] [address] [facility] Start: 04-30-2025 End: 04-30-2025 Patient encounter procedure 04/30/2025 11:00 AM EDT Office Visit [facility] [place] [address] [place] [phone] Amber García DO [address] [place] [address] [facility] [place] Start: 04-25-2025 DTaP/Tdap/Td Vaccines (2 - Td or Tdap) DTaP/Tdap/Td Vaccines (2 - Td or Tdap) [facility] Start: 04-18-2025 End: 04-18-2025 Patient encounter procedure 04/18/2025 1:15 PM EDT Office Visit [facility] Obstetrics and Gynecology [address] [place] [phone] Choco Huber MD [address] [place] [address] [facility] Start: 04-09-2025 COVID-19 Vaccine ( season) COVID-19 Vaccine ( season) [facility] Start: 04-09-2025 Influenza vaccination [facility] Start: 04-04-2025 End: 04-04-2025 Patient encounter procedure 04/04/2025 2:00 PM EDT Office Visit [facility] [place] [address] [place] [address] [place] [address] Mt South, CONCRETE BLOCK MAKER - [employer] [address] [place] [address] [facility] [place] Start: 03-14-2025 End: 03-14-2025 Telemedicine consultation with patient 03/14/2025 1:40 PM EDT Telemedicine [facility] [place] [address] [place] [address] [place] [address] Mt South, CONCRETE BLOCK MAKER - [employer] [address] [place] [address] [place] [address] [facility] [place] Start: 03-13-2025 End: 03-13-2025 Clinical Support 03/13/2025 3:00 PM EDT Clinical Support [facility] [place] [address] [place] [address] [place] [address] [facility] [place] Start: 02-28-2025 End: 02-28-2025 Patient encounter procedure 02/28/2025 2:40 PM EDT Office Visit [facility] [place] [address] [place] [address] [place] [address] Mt South, CONCRETE BLOCK MAKER - [employer] [address] [place] [address] [place] [address] [facility] [place] Start: 02-05-2025 Influenza vaccination Influenza Vaccine (#1) [facility] Comment on above: Postponed from 04/09/2024 (Patient Refus ed) Start: 01-10-2025 End: 01-10-2025 Patient encounter procedure 01/10/2025 3:00 PM EDT Office Visit [facility] [place] [address] [place] [address] [place] [address] Mt South, CONCRETE BLOCK MAKER - [employer] [address] [place] [address] [facility] [place] Start: 01-10-2025 End: 01-10-2026 Hepatic function 2000 panel - Serum or Plasma Hepatic function panel Lab Routine Elevated liver enzymes Expected: 01/10/2025 (Approximate), Expires: 01/10/2026 [facility] Comment on above: Expected: 01/10/2025 (Approximate), Expi res: 01/10/2026 Start: 01-10-2025 End: 01-10-2026 Microalbumin/Creatinine panel in random Urine Microalbumin / creatinine urine ratio Lab Routine Type 2 diabetes mellitus with morbid obesity (HCC) Expected: 01/10/2025 (Approximate), Expires: 01/10/2026 [facility] Work Phone: Comment on above: Expected: 01/10/2025 (Approximate), Expi res: 01/10/2026 Start: 01-08-2025 End: 01-08-2025 Patient encounter procedure 01/08/2025 3:40 PM EDT Office Visit [facility] [place] [address] [place] [address] Mt South, CONCRETE BLOCK MAKER [employer] [address] [place] [address] [place] [address] [facility] Start: 12-06-2024 End: 12-06-2024 Clinical Support 12/06/2024 3:30 PM EDT Clinical Support [facility] [place] [address] [place] [address] [place] [address] [facility] Start: 12-05-2024 End: 12-05-2025 Glucose [Mass/volume] in Serum or Plasma Glucose, Random Lab Routine Elevated fasting glucose Expected: 12/05/2024 (Approximate), Expires: 12/05/2025 [facility] Comment on above: Expected: 12/05/2024 (Approximate), Expi res: 12/05/2025 Start: 12-05-2024 End: 12-05-2025 Hemoglobin A1c measurement Hemoglobin A1c Lab Routine Elevated fasting glucose Expected: 12/05/2024 (Approximate), Expires: 12/05/2025 [facility] [employer] Work Phone: Comment on above: Expected: 12/05/2024 (Approximate), Expi res: 12/05/2025 Start: 12-04-2024 End: 12-04-2025 CBC W Auto Differential panel - Blood CBC auto differential Lab Routine Amenorrhea Morbid obesity with BMI of 45.0-49.9, adult (HCC) RUQ abdominal pain Nausea Screening for deficiency anemia Expected: 12/04/2024 (Approximate), Expires: 12/04/2025 [facility] [employer] Comment on above: Expected: 12/04/2024 (Approximate), Expi res: 12/04/2025 Start: 12-04-2024 End: 12-01-2025 Comprehensive metabolic 1998 panel - Serum or Plasma Comprehensive metabolic panel Lab Routine Morbid obesity with BMI of 45.0-49.9, adult (HCC) Amenorrhea RUQ abdominal pain Nausea Screening for diabetes mellitus Expected: 12/04/2024 (Approximate), Expires: 12/01/2025 [facility] [employer] Comment on above: Expected: 12/04/2024 (Approximate), Expi res: 12/01/2025 Start: 12-04-2024 End: 12-04-2025 Estrogens, total Estrogens, total Lab Routine Amenorrhea Expected: 12/04/2024 (Approximate), Expires: 12/04/2025 [facility] [employer] Comment on above: Expected: 12/04/2024 (Approximate), Expi res: 12/04/2025 Start: 12-04-2024 End: 12-04-2025 Follicle stimulating hormone Follicle stimulating hormone Lab Routine Amenorrhea Expected: 12/04/2024 (Approximate), Expires: 12/04/2025 [facility] [employer] Comment on above: Expected: 12/04/2024 (Approximate), Expi res: 12/04/2025 Start: 12-04-2024 End: 12-01-2025 Lipid 1996 panel - Serum or Plasma Lipid panel Lab Routine Screening for lipoid disorders Expected: 12/04/2024 (Approximate), Expires: 12/01/2025 [facility] Work Phone: Comment on above: Expected: 12/04/2024 (Approximate), Expi res: 12/01/2025 Start: 12-04-2024 End: 12-04-2025 Luteinizing hormone Luteinizing hormone Lab Routine Amenorrhea Expected: 12/04/2024 (Approximate), Expires: 12/04/2025 [facility] Comment on above: Expected: 12/04/2024 (Approximate), Expi res: 12/04/2025 Start: 12-04-2024 End: 12-04-2025 Prolactin Prolactin Lab Routine Amenorrhea Expected: 12/04/2024 (Approximate), Expires: 12/04/2025 [facility] Comment on above: Expected: 12/04/2024 (Approximate), Expi res: 12/04/2025 Start: 12-04-2024 End: 12-01-2025 Thyrotropin [Units/volume] in Serum or Plasma TSH Lab Routine Amenorrhea Morbid obesity with BMI of 45.0-49.9, adult (HCC) Expected: 12/04/2024 (Approximate), Expires: 12/01/2025 [facility] [employer] Comment on above: Expected: 12/04/2024 (Approximate), Expi res: 12/01/2025 Start: 12-04-2024 End: 12-04-2025 US Abdomen US abdomen complete Imaging Routine RUQ abdominal pain Expected: 12/04/2024, Expires: 12/04/2025 [facility] [employer] Comment on above: Expected: 12/04/2024, Expires: Start: 11-29-2024 End: 11-29-2024 Patient encounter procedure 11/29/2024 1:30 PM EDT Office Visit [facility] [address] [facility] [address] [place] [id number] Maria Alejandra Colvin APRN - DONAVON [address] [place] [address] [facility] Start: 11-06-2024 End: 11-06-2024 Patient encounter procedure 11/06/2024 11:20 AM EDT Office Visit [facility] [place] [address] [place] [address] [place] [address] [facility], [employer] [address] [place] [address] [place] [address] [facility] [place] Start: 10-27-2024 End: 10-27-2024 Patient encounter procedure 10/27/2024 10:40 AM EDT Office Visit [facility] [place] [address] [place] [address] [place] [address] [facility], [employer] [address] [place] [address] [place] [address] [facility] [place] Start: 10-09-2024 End: 10-09-2024 Patient encounter procedure 10/09/2024 11:20 AM EST Office Visit [facility] [place] [address] [place] [address] [place] [address] [facility], [employer] [address] [place] [address] [place] [address] [facility] [place] Start: 10-06-2024 End: 10-06-2024 Clinical Support 10/06/2024 8:30 PM EST Clinical Support [facility] [address] [place] [phone] Iwona Concepcion MD [address] [facility] [address] [place] [address] [facility] Start: 09-27-2024 End: 09-27-2024 Patient encounter procedure 09/27/2024 11:20 AM EST Office Visit [facility] [place] [address] [place] [address] [place] [address] [facility] [place], [employer] [address] [place] [address] [place] [address] [facility] [place] Start: 09-19-2024 End: 09-19-2025 Polysomnography Polysomnography Sleep Center Routine Obstructive sleep apnea Expected: 09/19/2024 (Approximate), Expires: 09/19/2025 [facility] Comment on above: Expected: 09/19/2024 (Approximate), Expi res: 09/19/2025 Start: 09-19-2024 End: 09-19-2025 XR Cervical spine 4 or 5 Views [facility] Work Phone: Comment on above: Expected: 09/19/2024, Expires: Once for 1 Occurrenc es starting 09/19/2024 until 09/19/2024 Start: 09-14-2024 End: 09-14-2024 Patient encounter procedure 09/14/2024 3:00 PM EST Office Visit [facility] [place] [address] [place] [address] Andrea Duff, [address] [place] [phone] [facility] Start: 04-28-2024 End: 04-28-2024 Patient encounter procedure 04/28/2024 9:20 AM EDT Office Visit [facility] [place] [address] [place] [address] [place] [address] [facility], [employer] [address] [place] [facility] [place] [address] [facility] [place] Start: 04-09-2024 COVID-19 Vaccine ( season) COVID-19 Vaccine () [facility] Start: 04-09-2024 COVID-19 Vaccine ( season) COVID-19 Vaccine ( season) [facility] Start: 04-09-2024 Influenza vaccination Influenza Vaccine (#1) [facility] Start: 11-20-2022 Electrocardiographic procedure EKG [facility] Start: 2022 Screening for malignant neoplasm of cervix [facility] Start: 05-26-2022 Cervical cancer screen Cervical cancer screen [place] Start: 05-26-2022 Screening for malignant neoplasm of cervix Cervical cancer screen [place] Start: 10-05-2021 Cervical cancer screen Cervical cancer screen [place] Start: 04-09-2020 Influenza vaccination Flu vaccine (Season Ended) [place] Start: 12-05-2019 End: 12-05-2019 Appointment 12/05/2019 Appointment MRI Alex Ortega DO [address] [place] [address] [phone] [facility] [address] [facility] Start: 09-05-2019 End: 09-05-2019 Office Visit 09/05/2019 Office Visit Hematology and Oncology Serene Clark DO [address] [place] [address] [phone] [facility] Start: 06-20-2019 End: 06-20-2019 Office Visit 06/20/2019 Office Visit Pulmonology Ashish Perez MD [address] [facility] [address] [place] [address] [phone] [facility] Start: 06-02-2019 End: 06-02-2019 Office Visit 06/02/2019 Office Visit Obstetrics and Gynecology Doron Gustafson MD [address] [place] [phone] [facility] Start: 04-11-2019 End: 04-11-2019 Routine 04/11/2019 Routine Obstetrics and Gynecology Cira Law APRN - KOJO [address] [place] [address] [phone] [facility] Start: 04-09-2019 Influenza vaccination Flu vaccine (#1) [place] Start: 04-03-2019 End: 04-03-2019 Routine 04/03/2019 Routine Obstetrics and Gynecology NirpatsyMy, [address] [place] [address] [phone] [facility] Start: 03-31-2019 End: 03-31-2019 Procedure visit [facility] Start: 2013 Screening for malignant neoplasm of cervix Pap Smear [facility] Start: 11-17-2011 DTaP/Tdap/Td vaccine (1 - Tdap) DTaP/Tdap/Td vaccine (1 - Tdap) [place] Start: 11-17-2011 Hepatitis B Vaccines (1 of 3 - 19+ 3-dose series) Hepatitis B Vaccines (1 of 3 - 19+ 3-dose series) [facility] Start: 11-17-2011 Pneumococcal Vaccine: Pediatrics (0 to 5 Years) and At-Risk Patients (6 to 49 Years) (1 of 2 - PCV) Pneumococcal Vaccine: Pediatrics (0 to 5 Years) and At-Risk Patients (6 to 49 Years) (1 of 2 - PCV) [facility] Start: 2010 Diabetes mellitus screening Diabetes Screening [facility] Start: 2010 Diabetes: Urine Albumin-Creatinine Ratio for Kidney Health Diabetes: Urine Albumin-Creatinine Ratio for Kidney Health [facility] Start: 2010 Hepatitis C screening Hepatitis C Screening [facility] Start: 11-17-2007 HPV vaccine (1 - Female 3-dose series) HPV vaccine (1 - Female 3-dose series) [place] Start: 2005 Varicella vaccination Varicella Vaccines (1 of 2 - 13+ 2-dose series) [facility] Start: 2005 Varicella Vaccine (1 of 2 - 13+ 2-dose series) Varicella Vaccine (1 of 2 - 13+ 2-dose series) [place] Start: 2004 Depression Screening Depression Screening [facility] Start: 11-17-2003 DTaP/Tdap/Td vaccine (1 - Tdap) DTaP/Tdap/Td vaccine (1 - Tdap) [place] Start: 11-17-2003 HPV vaccine (1 - 2-dose series) HPV vaccine (1 - 2-dose series) [place] Start: 11-17-2003 HPV vaccine (1 - Female 2-dose series) HPV vaccine (1 - Female 2-dose series) [place] Start: 2002 Diabetic foot examination Diabetes: Foot Exam [facility] Start: 2002 Glaucoma screening Diabetes: Retinopathy Screening [facility] Start: 2002 Preventive dental service Diabetes: Dental Exam [facility] Start: 1998 Pneumococcal 0-64 years Vaccine (1 of 1 - PPSV23) Pneumococcal 0-64 years Vaccine (1 of 1 - PPSV23) [place] Start: 1998 Pneumococcal Vaccine: Pediatrics (0 to 5 Years) and At-Risk Patients (6 to 64 Years) (1 of 2 - PCV) Pneumococcal Vaccine: Pediatrics (0 to 5 Years) and At-Risk Patients (6 to 64 Years) (1 of 2 - PCV) [facility] Start: 1993 MMR Vaccines (1 of 1 - Standard series) MMR Vaccines (1 of 1 - Standard series) [facility] Start: 1993 Varicella Vaccine (1 of 2 - 2-dose childhood series) Varicella Vaccine (1 of 2 - 2-dose childhood series) [place] Start: 1992 HIV screening HIV Screening [facility] Start: 1992 Lipid panel Lipid Panel [facility] End: 04-20-2019 Culture Blood #1 Culture Blood #1 Microbiology STAT One Time for 1 Occurrences starting 04/20/2019 until 04/20/2019 [place] Comment on above: One Time for 1 Occurrences starting 04/09 until 04/20/2019 Culture Blood #1 Culture Blood # 1 Microbiology STAT 04/20/2019 8:04 PM EDT [place] End: 04-20-2019 Culture Blood #2 Culture Blood #2 Microbiology STAT One Time for 1 Occurrences starting 04/20/2019 until 04/20/2019 [place] Comment on above: One Time for 1 Occurrences starting 04/09 until 04/20/2019 Culture Blood #2 Culture Blood # 2 Microbiology STAT 04/20/2019 8:04 PM EDT [place] End: 11-11-2019 Culture, Urine Culture, Urine Microbiology STAT One Time for 1 Occurrences starting 11/11/2019 until 11/11/2019 [place] Comment on above: One Time for 1 Occurrences starting 11/2019 until 11/11/2019 EKG 12 Lead EKG 12 Lead ECG Routine 11/11/2019 5:40 PM EDT [place] EMPOWER MULTI-CANCER (2 + 38) EMPOWER MULTI-CANCER (2 + 38) Lab Routine Family history of malignant neoplasm of ovary 05/25/2025 11:12 AM EDT [facility] Full PFT Study With Bronchodilator Full PFT Study With Bronchodilator PFT Routine Mild persistent asthma, unspecified whether complicated 05/30/2019 10:04 AM EDT [place] End: 03-28-2019 Group B Strep, PCR Group B Strep, PCR Microbiology Routine One Time for 1 Occurrences starting 03/28/2019 until 03/28/2019 [place] Comment on above: One Time for 1 Occurrences starting 03/10 until 03/28/2019 Group B Strep, PCR Group B Strep , PCR Microbiology Routine 03/28/2019 6:26 PM EDT [place] Incentive spirometry Incentive s pirometry Respiratory Care Routine Every 2hr while awake until discontinued starting 04/09/2019 [place] Comment on above: Every 2hr while awake until discontinued starting 04/09/2019 Initiate Oxygen Ther apy Protocol Initiate Oxygen Therapy Protocol Respiratory Care Routine Daily until discontinued starting 04/09/2019 [place] Comment on above: Daily until discontinued starting 2018 Patient Education Vertigo, Easy- to-Read Nausea and Vomiting, Adult, [id number] [facility] Work Phone: Patient referral [facility] Work Phone: End: 04-09-2019 SURGICAL PATHOLOGY [place] Comment on above: One Time for 1 Occurrences starting 08/2018 until 04/09/2019 Once for 1 Occurrenc es starting 04/09/2019 until 04/09/2019 Surgical Pathology Surgical Path ology Lab Routine 04/09/2019 12:00 [facility] End: 11-11-2019 Urinalysis Urinalysis Lab STAT One Time for 1 Occurrences starting 11/11/2019 until 11/11/2019 [facility] Comment on above: One Time for 1 Occurrences starting 11/2019 until 11/11/2019 Immunizations Immunization Date Immunization Notes Care Provider Fa brandeemarcie 04-25-2015 tetanus toxoid, redu ty diphtheria toxoid, and acellular pertussis vaccine, adsorbed DR ALTHEA NORRIS MD [facility] Payers Date Payer Category Payer Medicaid HMO [id number] 2022 Unknown [id number] 2021 Medicaid [id number] 2021 Unknown [id number] 2018 Unknown [facility] xxxxxxxxxxxx 2018-Present [phone] [address] [place] [address] xxxxxxxxxxxx [id number] 1992 Unknown [id number] 1992 Unknown [id number] 1992 Unknown [id number] 1992 Unknown [id number] 1992 Unknown [id number] Unknown [id number] Social History Date Type Detail Facility Start: 2004 End: 04-30-2025 Tobacco smoking status MNIS Current every day smoker [facility] Start: 11-17-2003 End: 04-13-2019 History of tobacco use Cigarette Smoker [place] Start: 04-02-2019 End: 04-17-2025 Cigarettes smoked current (pack per day) - Reported [facility] Start: 04-02-2019 End: 04-17-2025 Alcohol intake No [place] Start: 11-14-2018 Tobacco Comment trying to quit down to 2 cigarette a day [email or web address] Start: 07-31-2018 [place] Sex Assigned At Not on file [place] Start: 05-26-2019 End: 08-30-2019 Tobacco smoking status NHIS Light tobacco smoker [place] Start: 04-27-2019 History SDOH Social Connections Phone 3 [place] Start: 04-27-2019 History SDOH Social Connections Get Together 2 [place] Start: 04-27-2019 History SDOH Social Connections Amish 1 [place] Start: 04-27-2019 History SDOH Social Connections Living 8 [place] Start: 04-27-2019 History SDOH IPV Emotional 98 [place] Start: 05-16-2019 Tobacco Comment 2 black and mi lds a week - vaped THC in the past [place] Start: 07-06-2019 End: 02-28-2025 Alcohol intake Current non-drinker of alcohol (finding) [place] Exposure to SARS-CoV -2 (event) Unable to assess [facility] [place] [place] Sex Assigned At [facility] [place] Start: 11-20-2022 Never [facility] Start: 11-20-2022 No [facility] Start: 1990 Sex Assigned At Female C [facility] Start: 11-24-2022 Gender identity Identifies as female gender (finding) [facility] Start: 04-28-2024 End: 04-30-2025 Tobacco use and exposure Smokeless tobacco non-user [facility] Start: 01-06-2015 End: 03-09-2022 Sex Female (finding) [facility] How often to you hav e a drink containing alcohol? Never [facility] How many standard dr inks containing alcohol do you have on a typical day? Patient does not drink [facility] Has the [employer], oil, or water Cano[employer] threatened to shut off services in your home in past 12Mo No [facility] Are you now , , , , never or living with a partner? [facility] How hard is it for y ou to pay for the very basics like food, housing, medical care, and heating Not very hard [facility] Do you feel stress - tense, restless, nervous, or anxious, or unable to sleep at night because your mind is troubled all the time - these days [OSQ] Only a little [facility] (I/We) worried wheth er (my/our) food would run out before (I/we) got money to buy more. Never true [facility] Do you feel stress - tense, restless, nervous, or anxious, or unable to sleep at night because your mind is troubled all the time - these days [OSQ] To some extent [facility] Start: 04-30-2025 End: 05-25-2025 Alcoholic beverage intake Lifetime non-drinker (finding) [facility] Goals Date Patient Goal Desired Activity /State Comment on above: Live more Barriers: financial Plan for overcoming my barriers: get back to work after maternity leave Confidence: 01/16 Anticipated Goal Completion Date: 07/27/19 Functional Status Date Assessment Result Facility 04-17-2025 Total score [AUDIT-C] 0 04/17/20 9:47 AM EDT Mychart, Generic [facility] [employer] 04-17-2025 How often to you hav e a drink containing alcohol? Never 04/17/2025 9:47 AM EDT [place], Generic Never [facility] 04-17-2025 Functional status Patient does n ot drink 04/17/2025 9:47 AM EDT [place], Generic Patient does not drink [facility] 04-17-2025 How often do you hav e 6 or more drinks on 1 occasion? Never 04/17/2025 9:47 AM EDT MyForcet, Generic Never [facility] 04-04-2025 Generalized anxiety disorder 7 item (NEDA-7) [facility] 11-30-2024 Functional Status Independent [facility] 11-30-2024 Functional Status Room check performed [facility] 11-30-2024 Functional Status [facility] 06-05-2023 Functional Status Independent [facility] 03-05-2023 Functional Status Ambulating in barrett, Ambulating in room, Awake, Bathroom privileges [facility] 03-05-2023 Functional Status Standard Safet y ID band on, Allergy Band on, Call device within reach, Bed in low position, Wheels locked, Upper/Half-Length side-rails up, personal items within reach, Visitor at bedside [facility] 09-07-2022 Functional Status Up ad lucio [facility] 04-26-2022 Functional Status ID band on, Allergy Band on, Call device within reach, Bed in low position, Wheels locked, Upper/Half-Length side-rails up, Phone within reach, personal items within reach, Bedside Cart Locked [facility] 01-21-2022 Functional Status Standard Safet y ID band on, Call device within reach, Bed in low position, Wheels locked, Upper/Half-Length side-rails up, Bedside Cart Locked, Safety level maintained [facility] Mental Status Date Assessment Result Facility 11-30-2024 Mental Status Orientation Oriented x 4 [facility] 11-30-2024 Mental Status [facility] 06-05-2023 Mental Status Orientation Oriented x 4 [facility] 03-05-2023 Mental Status Orientation Oriented x 4 [facility] 03-05-2023 Mental Status [facility] 11-20-2022 Cognitive function Level Of Cons ciousness Awake;Alert;Appropriate;Follow s Commands [facility] Work Phone: 09-07-2022 Mental Status Oriented x 4 [facility] 04-26-2022 Mental Status Oriented x 4 [facility] 01-21-2022 Mental Status Orientation Oriented x 4 [facility] Clinical Notes 01-28-2020 to 06-07-2025 Telephone Encounter - Bri Newton MA - 06/07/2025 10:33 AM EDTTelephone Encounter - Bri Newton MA - 06/07/2025 10:33 AM Nhan Babb MA - 05/25/2025 10:30 AM EDTDischashaq Instructions Note Date & Type Note Facility 06-07-2025 Telephone encounter Note Prescription Request: Last medication check: 05/09/25 Last physical exam: 12/04/24 Next scheduled appointment: 08/22/25 Last date of refill on this medication 05/14/25 2ml 0 refill [facility] 06-07-2025 Miscellaneous Notes Prescription Request: Last medication check: 05/09/25 Last physical exam: 12/04/24 Next scheduled appointment: 08/22/25 Last date of refill on this medication 05/14/25 2ml 0 refill documented in this encounter [facility] 05-25-2025 History of Presen t illness Narrative Table Keeper was offered to the patient for exam. Patient declined offer of gravity meter observer Hemant Garcia 05/28/2025 Date Of : 1990 HPI: Hemant Garcia is a 34 y.o. female No obstetric history on file. The patient was seen today. She is here regarding Abnormal bleeding Irregular menses Missed menses November Then very heavy menses 2 pads per hour Went to ER 01/31 Labs in ER No anemia Elev lft Ho dm Fsh thyroid pro ok Abn hair growth Hair loss top of head Pap ho abnormal Enlarged uterus Line 3.4 mm Pap 2018 ro hgsil no followup per patient fam ho ovarian cancer Smoker Obesity Fertility not desired Partner vasectomy Minimal pain Had tube removed right right side 04/27 serous cyst Pt concern for endometriosis Considering hysterectomy Genetics desired Pap emb next visit . Review Of Systems: See hpi Physical Exam: Blood pressure 128/85, pulse 84, height 5' 9 (1.753 m), weight 297 lb (135 kg). General: Alert, NAD Respirations: Normal respiratory effort Assessment: Diagnosis Plan 1. Abnormal uterine bleeding (AUB) DHEA Sulfate, Immunoassay QUEST Testosterone, Free (Dialysis), Total (MS) and Sex Hormone Binding Globulin 17-Hydroxyprogesterone Testosterone, Free (Dialysis), Total (MS) and Sex Hormone Binding Globulin 17-Hydroxyprogesterone 2. Family history of malignant neoplasm of ovary EMPOWER MULTI-CANCER (2 + 38) PLAN: Follow up in about 2 weeks (around 06/08/2025) for emb. Orders Placed This Encounter Procedures DHEA Sulfate, Immunoassay QUEST Standing Status: Future Number of Occurrences: 1 Expected Date: 05/25/2025 Expiration Date: 05/25/2026 EMPOWER MULTI-CANCER (2 + 38) DO NOT DELETE BELOW THIS LINE Department Information ID: [id number] Department:[facility] - [address] [facility] [address] Dept: [phone] Dept Loc: [phone] Patient and physician allow Guerita to share order details with 3rd republican genetic counselor?: Yes Does this patient have a personal history of cancer? If Yes, send cancer history to Guerita: No Does this patient have a family history of cancer? If Yes, send cancer history to Guerita: Yes By placing this electronic order I confirm the testing ordered herein is medically necessary and this patient has been informed of the details of the genetic test(s) ordered, including the risks, benefits, and alternatives, and has consented to testing.: Yes Method/type of collection:: Clinic to manage sample collection What type of billing?: Bill Insurance Select an order diagnosis: Family history of malignant neoplasm of ovary [V16.41.ICD-9-CM] Testosterone, Free (Dialysis), Total (MS) and Sex Hormone Binding Globulin Standing Status: Future Number of Occurrences: 1 Expected Date: 05/25/2025 Expiration Date: 05/25/2026 17-Hydroxyprogesterone Standing Status: Future Number of Occurrences: 1 Expected Date: 05/25/2025 Expiration Date: 05/25/2026 The primary encounter diagnosis was Abnormal uterine bleeding (AUB). A diagnosis of Family history of malignant neoplasm of ovary was also pertinent to this visit. and New Patient (Referral from [facility] for abnormal bleeding/Pt had been seen in the [place] ER for heavy bleeding) as well as counseling on preventative health maintenance follow-up. documented in this encounter [facility] 05-14-2025 Telephone encounter Note Rx sent. Follow up as scheduled. [facility] 05-14-2025 Miscellaneous Notes Rx sent. Follow up as scheduled. Images from the original note were not included. Prescription Request: dulaglutide (Trulicity) 0.75 MG/0.5ML pen-injector Last physical exam: 12/04/24 ( dietary services director exam) Next scheduled appointment: 08/22/25 Last date of refill on this medication 04/18/25 ( qty 2 ml refill 0) documented in this encounter [facility] 05-14-2025 Telephone encounter Note Images from the original note were not included. Prescription Request: dulaglutide (Trulicity) 0.75 MG/0.5ML pen-injector Last physical exam: 12/04/24 ( dietary services director exam) Next scheduled appointment: 08/22/25 Last date of refill on this medication 04/18/25 ( qty 2 ml refill 0) [facility] 05-10-2025 Telephone encounter Note Noted. [facility] 05-10-2025 Miscellaneous Notes Noted. Noted. Patient contacted the office today, as they no longer wish to proceed with workup towards weightloss surgery. Reason for withdraw from program: Patient would like non surg program [x] Non-Surgical Program Offered [] Patient is not Interested at this time. [x] Patient is Interested in NSURG option, [] Forwarded to NPT for scheduling Checklist for internal management of patient's chart: [x] Specialty comment and CCN updated to show Surgical program withdrawal *date* [x] Routed to clinical team for canceling of outstanding orders including (Testing, Labs, Referrals) [x] Canceled outstanding appointments (DE, BNA) and routed to [facility] to cancel psych appts [x]Route to appropriate EGD dude wrangler (JEWELS/JOSHUA- Freida LEWIS/Amanda Yousif) [x] Sent to [facility] and Surgical Navigation (MRAITA/Xavi/JOSHUA- Micaela DONIS/DEBBIE-Greta) Images from the original note were not included. Author: Aurea Chakraborty Service: General Surgery Author Type: -- Filed: 05/09/2025 9:10 AM Creation Time: 05/09/2025 9:08 AM Status: Signed Clinical Services Professional: Aurea Chakraborty Attempted to schedule EGD, and pt stated that she is withdrawing from the program and will be calling the office today. Arline - please contact patient for reason and offer non surg. Complete the smart phrase program withdrawal, cancel orders Addended by: ARLINE GUERRA on: 05/08/2025 04:34 PM Modules accepted: Orders EGD ORDER SENT TO 260 CHEMISTRY QUALITY CONTROL TECHNICIAN ORDERS PENDING PRE OP CHECKLIST SCANNED INTO MEDIA SENT TO [facility] Encounter Diagnoses Name Primary? Morbid obesity, unspecified obesity type (HCC) Yes Morbid obesity with BMI of 45.0-49.9, adult (HCC) Type 2 diabetes mellitus with morbid obesity (HCC) I have recommended proceeding with the evaluation and work-up for the primary procedure as outlined below: Dr. García PATIENT SUMMARY Hemant Garcia 34 y.o. female with Body mass index is 46.5 kg/m . Laparoscopic Sleeve Gastrectomy DM[x] HTN[] LEXX[] GERD[] HL[] OA[] Date of Surgery: TBD MP PCP: INITIAL TESTING RESULTS Labwork [x] CMP, TSH, Fasting Lipid Profile, Mg, Zinc, Vit B1 (whole blood), Vit B12, 25-OH Vit D, Fe, Ferritin, Folate Tobacco [x] Serum Nicotine / Cotinine [] Negative [] Positive EGD [x] Dx: [] GERD [x] Dyspepsia [] Other Pathology [x] H. pylori [] Negative [] Positive UGI [x] [] not ordered if patient is a Iliana en Y US Abdomen [x] [] not ordered LEXX eval [x] [] On CPAP / Obtain settings 2 months ago was checked Hematology [] [] Hypercoagulation panel Toxicology [x] [x] Urine drug screen [x] EtOH screen Addtional [x] [x] Hgb A1c INITIAL CONSULTATIONS CLEARANCE / MANAGEMENT Psychology [x] Dietitian [x] Cardiology [x] Pulmonary [x] Others [] []Heme/Onc []Psychiatry []Pain mgmt PSD [] Physician supervised diet: []None []3 mos [x]6 mos Preop diet [] Preop low calorie diet: []None []1 wk [x]2 wks FINAL PRE-OP TESTING RESULTS Labwork [x] [x]Pre-op CBC [x]BMP []Serum Nicotine / Cotinine EKG [x] CXR [x] POST-OP MEDICATIONS Ulcer Ppx [] Omeprazole 20 mg PO []QD []BID Gallstone Ppx [] Ursodiol 300 mg []BID DVT Ppx [x] DVT prophylaxis per final preop visit estimated risk Estimated calculated risk: % Schedule final pre-operative office visit with surgeon, pre-operative education class, and pre-operative exercise class prior to date of surgery ATTESTATION I reviewed with the patient the details of the proposed operation. The risks benefits and options were discussed. Risks included but were not limited to bleeding, infection, damage to other surrounding organs, cardio-pulmonary complications related to anesthesia, conversion from laparoscopic to and open procedure, the need for reoperative or endoscopic therapy, the potential for prolonged mechanical ventilation, and . All questions were fully answered to the patient's satisfaction and they wish to proceed with surgical intervention. Sleeve Stop smoking Liver biopsy I spent the visit was spent as face to face encounter, counseling the patient and discussing the risks,benefits and options of surgery as well as the perioperative care plan. The patient was seen and examined independently and relevant data including a full chart rreview was performed by myself. Initial New [facility] surgical patient Navigation & Financial Counseling Discussion Patient Communication: In office SURGEON: [] JEWELS [] AD [x] MP [] TB [] LM PROCEDURE: [] LRYGB [] LSG [] CRISTIN-S [] CRISTIN [] UNDECIDED [] REV: SPECIFY: Confirmed pt wants to continue with surgical program/plan [] YES [] NO (complete program withdrawal note/process) CO-MORBIDS: [] NONE [] DM []HTN [] LEXX []GERD [] OTH: PRIVATE PAY: [] NO []YES DATE OF INITIAL BENEFITS VERIFICATION: TRANSFER FU: [] YES [] NO PRIMARY INSURANCE: Payor: [place] / [facility] [place] / Product Type: Medicaid HMO / BENEFIT ON PLAN: [] NO [] YES BENEFIT MAX: [] NO [] YES -- BENEFIT MAX: $ EMPLOYER: DIET AND EXERCISE (DE) REQUIREMENT PRIMARY [] NONE []3M [x] 6M []9M [] Medicare 4 Months [] SPR (3M) []OTHER: SECONDARY INSURANCE: BENEFIT ON PLAN: [] NO [] YES BENEFIT MAX: [] NO [] YES -- BENEFIT MAX: $ AUTH REQUIRED FROM SECONDARY [] NO [] YES DIET AND EXERCISE REQUIREMENT SECONDARY [] NONE []3M [] 6M [] Medicare 4 months [] SPR (3M) []OTHER: ___ [] Discussed with patient: Financial cost overview (document signed and pt given copy at new pt consult visit with surgeon), Initial appointments: Bariatric Nutrition Assessment (BNA) & Diet and Exercise (DE) Patient to look for yellow envelope in mail. This yellow envelope will contain orders for labs, testing and required clearances. Pt encouraged to complete early in program to prevent delays. Encourage blood work to be draw by 1st DE appointment. [] Reviewed OOP cost, including: [] Overview of inpatient admission benefits - estimated inpatient co-pays, deductibles and/or co-insurance - Estimated OOP costs form reviewed with patient, and copy given to patient at new pt visit. [] Reviewed next steps with patient: 1) Scheduled at new pt surgeon visit: Electrolytic Etcher (RD) for a Nutrition Assessment (BNA) and Pre-operative Diet and Exercise (DE) appointment #1. [] Patient reminded to arrive 15 minutes early for check in. Late arrivals may need to be rescheduled. 2) Schedule: Diet and Exercise Apt #2 only scheduled after initial BNA and DE completed, 3) Behavioral Health apt scheduled after DE started. Reviewed rational and goal of Behavioral Health appointments. 4) [] Reinforced need to cancel any WMI appointments 48 hours in advance. Cautioned NS/Same day cancellations may result in delay in program or program completion hold. Noted: DE series needs to be a monthly series or insurance company may require repeat of the entire series. 5) [] Smoker/tobacco products including vaping: reviewed need for cessation before surgery clearance and life long abstinence after surgery for best outcomes. Patient navigation to surgery: [] Explained to patient that average time from initial consult to date of surgery can be 6-8 months. - Process can take longer if there are cancelled appointments, delays in testing and/or additional clearances that needs to be completed. - Reviewed importance of patient active engagement in making and keeping appointments to keep the process moving. - Reinforced need to cancel appointments at least 48 hours in advance. Reviewed that instances of No Shows and Same Day Appointment Cancellations may result in program/surgery delay or hold. [] Patient advised of importance of having voicemail and MyChart for office communications and lab/testing results before and after surgery. documented in this encounter [facility] 05-10-2025 Telephone encounter Note Noted. [facility] [employer] Work Phone: 05-09-2025 Telephone encounter Note Patient contacted the office today, as they no longer wish to proceed with workup towards weightloss surgery. Reason for withdraw from program: Patient would like non surg program [x] Non-Surgical Program Offered [] Patient is not Interested at this time. [x] Patient is Interested in NSURG option, [] Forwarded to NPT for scheduling Checklist for internal management of patient's chart: [x] Specialty comment and CCN updated to show Surgical program withdrawal *date* [x] Routed to clinical team for canceling of outstanding orders including (Testing, Labs, Referrals) [x] Canceled outstanding appointments (DE, BNA) and routed to [facility] to cancel psych appts [x]Route to appropriate EGD dude wrangler (SHELBY LEWIS/Amanda Yousif) [x] Sent to [facility]ECENIA and Surgical Navigation (NUSRAT/ALIREZA DONIS/Agatha) [facility] 05-09-2025 Miscellaneous Notes Patient contacted the office today, as they no longer wish to proceed with workup towards weightloss surgery. Reason for withdraw from program: Patient would like non surg program [x] Non-Surgical Program Offered [] Patient is not Interested at this time. [x] Patient is Interested in NSURG option, [] Forwarded to NPT for scheduling Checklist for internal management of patient's chart: [x] Specialty comment and CCN updated to show Surgical program withdrawal *date* [x] Routed to clinical team for canceling of outstanding orders including (Testing, Labs, Referrals) [x] Canceled outstanding appointments (DE, BNA) and routed to [facility] to cancel psych appts [x]Route to appropriate EGD dude wrangler (JZ/LM- Freida LEWIS/Amanda Yousif) [x] Sent to [facility] and Surgical Navigation (NUSRAT/ALIREZA DONIS/DEBBIE-Greta) Images from the original note were not included. Author: Aurea Chakraborty Service: General Surgery Author Type: -- Filed: 05/09/2025 9:10 AM Creation Time: 05/09/2025 9:08 AM Status: Signed Clinical Services Professional: Aurea Chakraborty Attempted to schedule EGD, and pt stated that she is withdrawing from the program and will be calling the office today. Arline - please contact patient for reason and offer non surg. Complete the smart phrase program withdrawal, cancel orders Addended by: ARLINE GUERRA on: 05/08/2025 04:34 PM Modules accepted: Orders EGD ORDER SENT TO 260 CHEMISTRY QUALITY CONTROL TECHNICIAN ORDERS PENDING PRE OP CHECKLIST SCANNED INTO MEDIA SENT TO [facility] Encounter Diagnoses Name Primary? Morbid obesity, unspecified obesity type (HCC) Yes Morbid obesity with BMI of 45.0-49.9, adult (HCC) Type 2 diabetes mellitus with morbid obesity (HCC) I have recommended proceeding with the evaluation and work-up for the primary procedure as outlined below: Dr. García PATIENT SUMMARY Hemant Mari Jose 34 y.o. female with Body mass index is 46.5 kg/m . Laparoscopic Sleeve Gastrectomy DM[x] HTN[] LEXX[] GERD[] HL[] OA[] Date of Surgery: TBD MP PCP: INITIAL TESTING RESULTS Labwork [x] CMP, TSH, Fasting Lipid Profile, Mg, Zinc, Vit B1 (whole blood), Vit B12, 25-OH Vit D, Fe, Ferritin, Folate Tobacco [x] Serum Nicotine / Cotinine [] Negative [] Positive EGD [x] Dx: [] GERD [x] Dyspepsia [] Other Pathology [x] H. pylori [] Negative [] Positive UGI [x] [] not ordered if patient is a Iliana en Y US Abdomen [x] [] not ordered LEXX eval [x] [] On CPAP / Obtain settings 2 months ago was checked Hematology [] [] Hypercoagulation panel Toxicology [x] [x] Urine drug screen [x] EtOH screen Addtional [x] [x] Hgb A1c INITIAL CONSULTATIONS CLEARANCE / MANAGEMENT Psychology [x] Dietitian [x] Cardiology [x] Pulmonary [x] Others [] []Heme/Onc []Psychiatry []Pain mgmt PSD [] Physician supervised diet: []None []3 mos [x]6 mos Preop diet [] Preop low calorie diet: []None []1 wk [x]2 wks FINAL PRE-OP TESTING RESULTS Labwork [x] [x]Pre-op CBC [x]BMP []Serum Nicotine / Cotinine EKG [x] CXR [x] POST-OP MEDICATIONS Ulcer Ppx [] Omeprazole 20 mg PO []QD []BID Gallstone Ppx [] Ursodiol 300 mg []BID DVT Ppx [x] DVT prophylaxis per final preop visit estimated risk Estimated calculated risk: % Schedule final pre-operative office visit with surgeon, pre-operative education class, and pre-operative exercise class prior to date of surgery ATTESTATION I reviewed with the patient the details of the proposed operation. The risks benefits and options were discussed. Risks included but were not limited to bleeding, infection, damage to other surrounding organs, cardio-pulmonary complications related to anesthesia, conversion from laparoscopic to and open procedure, the need for reoperative or endoscopic therapy, the potential for prolonged mechanical ventilation, and . All questions were fully answered to the patient's satisfaction and they wish to proceed with surgical intervention. Sleeve Stop smoking Liver biopsy I spent the visit was spent as face to face encounter, counseling the patient and discussing the risks,benefits and options of surgery as well as the perioperative care plan. The patient was seen and examined independently and relevant data including a full chart rreview was performed by myself. Initial New [facility] surgical patient Navigation & Financial Counseling Discussion Patient Communication: In office SURGEON: [] JEWELS [] AD [x] MP [] TB [] LM PROCEDURE: [] LRYGB [] LSG [] CRISTIN-S [] CRISTIN [] UNDECIDED [] REV: SPECIFY: Confirmed pt wants to continue with surgical program/plan [] YES [] NO (complete program withdrawal note/process) CO-MORBIDS: [] NONE [] DM []HTN [] LEXX []GERD [] OTH: PRIVATE PAY: [] NO []YES DATE OF INITIAL BENEFITS VERIFICATION: TRANSFER FU: [] YES [] NO PRIMARY INSURANCE: [facility] / Plan: [place] ODM / Product Type: Medicaid HMO / BENEFIT ON PLAN: [] NO [] YES BENEFIT MAX: [] NO [] YES -- BENEFIT MAX: $ EMPLOYER: DIET AND EXERCISE (DE) REQUIREMENT PRIMARY [] NONE []3M [x] 6M []9M [] Medicare 4 Months [] SPR (3M) []OTHER: SECONDARY INSURANCE: BENEFIT ON PLAN: [] NO [] YES BENEFIT MAX: [] NO [] YES -- BENEFIT MAX: $ AUTH REQUIRED FROM SECONDARY [] NO [] YES DIET AND EXERCISE REQUIREMENT SECONDARY [] NONE []3M [] 6M [] Medicare 4 months [] SPR (3M) []OTHER: ___ [] Discussed with patient: Financial cost overview (document signed and pt given copy at new pt consult visit with surgeon), Initial appointments: Bariatric Nutrition Assessment (BNA) & Diet and Exercise (DE) Patient to look for yellow envelope in mail. This yellow envelope will contain orders for labs, testing and required clearances. Pt encouraged to complete early in program to prevent delays. Encourage blood work to be draw by 1st DE appointment. [] Reviewed OOP cost, including: [] Overview of inpatient admission benefits - estimated inpatient co-pays, deductibles and/or co-insurance - Estimated OOP costs form reviewed with patient, and copy given to patient at new pt visit. [] Reviewed next steps with patient: 1) Scheduled at new pt surgeon visit: Electrolytic Etcher (RD) for a Nutrition Assessment (BNA) and Pre-operative Diet and Exercise (DE) appointment #1. [] Patient reminded to arrive 15 minutes early for check in. Late arrivals may need to be rescheduled. 2) Schedule: Diet and Exercise Apt #2 only scheduled after initial BNA and DE completed, 3) Behavioral Health apt scheduled after DE started. Reviewed rational and goal of Behavioral Health appointments. 4) [] Reinforced need to cancel any WMI appointments 48 hours in advance. Cautioned NS/Same day cancellations may result in delay in program or program completion hold. Noted: DE series needs to be a monthly series or insurance company may require repeat of the entire series. 5) [] Smoker/tobacco products including vaping: reviewed need for cessation before surgery clearance and life long abstinence after surgery for best outcomes. Patient navigation to surgery: [] Explained to patient that average time from initial consult to date of surgery can be 6-8 months. - Process can take longer if there are cancelled appointments, delays in testing and/or additional clearances that needs to be completed. - Reviewed importance of patient active engagement in making and keeping appointments to keep the process moving. - Reinforced need to cancel appointments at least 48 hours in advance. Reviewed that instances of No Shows and Same Day Appointment Cancellations may result in program/surgery delay or hold. [] Patient advised of importance of having voicemail and MyChart for office communications and lab/testing results before and after surgery. documented in this encounter [facility] 05-09-2025 History of Presen t illness Narrative Images from the original note were not included. [address] [id number] Hemant Garcia is a 34 y.o. female who presents for Weight Check (Med check/ waist ) and Rash (Hand foot and mouth, her son was dx. Was seen in ED on Wednesday ) Assessment/Plan 1. Morbid obesity with BMI of 45.0-49.9, adult ([facility] (E66.01, Z68.42) - chronic, improving - Weight decreased from 316 lbs to 300 lbs since last visit - BMI decreased from 48.17 to 45.95 - Waist circumference reduced from 54.25 inches to 52 inches - Continue current dose of Trulicity - Patient to send MyChart message with current weight after last injection to assess for plateau - Follow up in 3 months - Encouraged to continue with current exercise routine and healthy eating habits 2. Hand, foot and mouth disease (B08.4) - acute, improving - Symptoms started Wednesday with itchy hands, fever on Wednesday and Wednesday - Clear blisters on hands, sore throat, and chest congestion noted - Advised to let the virus run its course as it is self-limiting - Provided work excuse letter from 05/07 through 05/11, to return to work on 05/14 Other Clinical Considerations: - Medication Management: - Patient has one more Trulicity injection for upcoming Wednesday - Advised to send An[employer] message when refill is needed - Weight Loss Progress: - Patient reports noticing her waist again and feeling more motivated - Clothing size decreased from uncomfortable 4X to comfortable 3X Hemant was seen today for weight check and rash. Diagnoses and all orders for this visit: Morbid obesity with BMI of 45.0-49.9, adult ([facility]) (Primary) Hand, foot and mouth disease Follow up in about 3 months (around 08/09/2025) for weight check/diabetes management. Subjective History of Present Illness Hemant Garcia, a 34-year-old female, presents for a follow-up weight management visit. She reports starting Trulicity after insurance denied Ozempic. Initially, she experienced nausea during the first week of Trulicity, which she expected. She notes a decrease in appetite and smaller portion sizes when eating. Hemant states she is making healthy food choices. 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 Hemant mentions her child was diagnosed with hand, foot, and mouth disease. She developed symptoms on Wednesday, initially thinking it might be a chemical burn from work. She experienced fever on Wednesday and Wednesday and still feels flushed. She reports a rash on her hands with clear blisters in her skin. Hemant also notes a sore throat with a dot in the back of her throat and chest congestion. She mentions having had hand, foot, and mouth disease before, with more severe symptoms in the past. I obtained verbal consent from the patient and/or patient's guardian to use ambient listening technology during this encounter before the ambient technology was engaged. Review of Systems Constitutional: Positive for fever. HENT: Negative for trouble swallowing. Respiratory: Negative for shortness of breath. Cardiovascular: Negative for chest pain. Gastrointestinal: Negative for abdominal distention, abdominal pain and nausea. Skin: Positive for rash. Objective BP 123/68 Pulse 94 Ht 5' 7.75 (1.721 m) Wt 300 lb (136 kg) SpO2 98% BMI 45.95 kg/m Waist Circumference: 52 inches Physical Exam Constitutional: General: She is not in acute distress. Appearance: She is obese. She is not ill-appearing or diaphoretic. Cardiovascular: Rate and Rhythm: Normal rate and regular rhythm. Heart sounds: Normal heart sounds. No murmur heard. No friction rub. Pulmonary: Effort: Pulmonary effort is normal. Breath sounds: Normal breath sounds. Skin: Comments: Vesicles with clear fluid surrounded by a halo of erythema noted on bilateral palms of hands. Neurological: Mental Status: She is alert. Results Weight: 300 lbs Waist circumference: 52 inches BMI: 45.95 documented in this encounter [employer] 05-09-2025 Telephone encounter Note Pt sched 05/09/25 [facility] [employer] 05-09-2025 Miscellaneous Notes Pt sched 05/09/25 Okay for in-office visit. Do you want to make her a virtual visit? Please advise I spoke with patient and she states it is not bed bugs, her son just got diagnosed with hand, foot, mouth the other day and she is sending us pictures of her hands. She was very upset when I spoke with her and states her temperature was 103.0. Lm for pt to return call- give Mt's message below Noted. I see she is currently on the schedule for 05/09/2025. Would recommend verifying if formal diagnosis of bedbugs was given or not. S: Patient spoke with [facility] nurse regarding rash on hands, feet, abdomen, and face, sore throat, drainage B: Onset of symptoms/concern 4 days A: States her neighbor currently a has hand/foot/mouth. Had recent fever and currently complained of chills. Nurse spoke briefly with patient. She stated she was in the ED currently. Tearful because she states they think its bug bites. Nurse warehouse operations manager entered room to talk with patient so patient disconnected call with triage nurse. R: TE to office for review and follow up as needed. Patient understands care advice. To call office back if needs further assistance. No further needs at this time. Patient instructed to call back with new or worsening symptoms. Reason for Disposition Patient wants to be seen Protocols used: Rash or Redness - [id number] documented in this encounter [facility] 05-09-2025 Telephone encounter Note Images from the original note were not included. Author: Aurea Chakraborty Service: General Surgery Author Type: -- Filed: 05/09/2025 9:10 AM Creation Time: 05/09/2025 9:08 AM Status: Signed Clinical Services Professional: Aurea Palmer Attempted to schedule EGD, and pt stated that she is withdrawing from the program and will be calling the office today. Arline - please contact patient for reason and offer non surg. Complete the smart phrase program withdrawal, cancel orders [facility] 05-09-2025 Telephone encounter Note Okay for in-office visit. [facility] 05-08-2025 Note Addended by: ARLINE GUERRA on: 05/08/2025 04:34 PM Modules accepted: Orders [facility] 05-08-2025 Note Addended by: ARLINE GUERRA on: 05/08/2025 04:34 PM Modules accepted: Orders [facility] 05-08-2025 Note Addended by: ARLINE GUERRA on: 05/08/2025 04:34 PM Modules accepted: Orders [facility] 05-08-2025 Note Addended by: ARLINE GUERRA on: 05/08/2025 04:34 PM Modules accepted: Orders [facility] 05-08-2025 Note Addended by: ARLINE GUERRA on: 05/08/2025 04:34 PM Modules accepted: Orders [facility] 05-08-2025 Note Addended by: ARLINE GUERRA on: 05/08/2025 04:34 PM Modules accepted: Orders [facility] 05-08-2025 Miscellaneous Notes Addended by: ARLINE GUERRA on: 05/08/2025 04:34 PM Modules accepted: Orders EGD ORDER SENT TO 260 CHEMISTRY QUALITY CONTROL TECHNICIAN ORDERS PENDING PRE OP CHECKLIST SCANNED INTO MEDIA SENT TO [facility] Encounter Diagnoses Name Primary? Morbid obesity, unspecified obesity type (HCC) Yes Morbid obesity with BMI of 45.0-49.9, adult (HCC) Type 2 diabetes mellitus with morbid obesity (HCC) I have recommended proceeding with the evaluation and work-up for the primary procedure as outlined below: Dr. García PATIENT SUMMARY Hemant Garcia 34 y.o. female with Body mass index is 46.5 kg/m . Laparoscopic Sleeve Gastrectomy DM[x] HTN[] LEXX[] GERD[] HL[] OA[] Date of Surgery: TBD MP PCP: INITIAL TESTING RESULTS Labwork [x] CMP, TSH, Fasting Lipid Profile, Mg, Zinc, Vit B1 (whole blood), Vit B12, 25-OH Vit D, Fe, Ferritin, Folate Tobacco [x] Serum Nicotine / Cotinine [] Negative [] Positive EGD [x] Dx: [] GERD [x] Dyspepsia [] Other Pathology [x] H. pylori [] Negative [] Positive UGI [x] [] not ordered if patient is a [facility] en Y US Abdomen [x] [] not ordered LEXX eval [x] [] On CPAP / Obtain settings 2 months ago was checked Hematology [] [] Hypercoagulation panel Toxicology [x] [x] Urine drug screen [x] EtOH screen Addtional [x] [x] Hgb A1c INITIAL CONSULTATIONS CLEARANCE / MANAGEMENT Psychology [x] Dietitian [x] Cardiology [x] Pulmonary [x] Others [] []Heme/Onc []Psychiatry []Pain mgmt PSD [] Physician supervised diet: []None []3 mos [x]6 mos Preop diet [] Preop low calorie diet: []None []1 wk [x]2 wks FINAL PRE-OP TESTING RESULTS Labwork [x] [x]Pre-op CBC [x]BMP []Serum Nicotine / Cotinine EKG [x] CXR [x] POST-OP MEDICATIONS Ulcer Ppx [] Omeprazole 20 mg PO []QD []BID Gallstone Ppx [] Ursodiol 300 mg []BID DVT Ppx [x] DVT prophylaxis per final preop visit estimated risk Estimated calculated risk: % Schedule final pre-operative office visit with surgeon, pre-operative education class, and pre-operative exercise class prior to date of surgery ATTESTATION I reviewed with the patient the details of the proposed operation. The risks benefits and options were discussed. Risks included but were not limited to bleeding, infection, damage to other surrounding organs, cardio-pulmonary complications related to anesthesia, conversion from laparoscopic to and open procedure, the need for reoperative or endoscopic therapy, the potential for prolonged mechanical ventilation, and . All questions were fully answered to the patient's satisfaction and they wish to proceed with surgical intervention. Sleeve Stop smoking Liver biopsy I spent the visit was spent as face to face encounter, counseling the patient and discussing the risks,benefits and options of surgery as well as the perioperative care plan. The patient was seen and examined independently and relevant data including a full chart rreview was performed by myself. Initial New [facility] surgical patient Navigation & Financial Counseling Discussion Patient Communication: In office SURGEON: [] JZ [] AD [x] MP [] TB [] LM PROCEDURE: [] LRYGB [] LSG [] CRISTIN-S [] CRISTIN [] UNDECIDED [] REV: SPECIFY: Confirmed pt wants to continue with surgical program/plan [] YES [] NO (complete program withdrawal note/process) CO-MORBIDS: [] NONE [] DM []HTN [] LEXX []GERD [] OTH: PRIVATE PAY: [] NO []YES DATE OF INITIAL BENEFITS VERIFICATION: TRANSFER FU: [] YES [] NO PRIMARY INSURANCE: Pay[place]: [place] [employer] / Plan: [place] [employer] ODM / Product Type: Medicaid HMO / BENEFIT ON PLAN: [] NO [] YES BENEFIT MAX: [] NO [] YES -- BENEFIT MAX: $ EMPLOYER: DIET AND EXERCISE (DE) REQUIREMENT PRIMARY [] NONE []3M [x] 6M []9M [] Medicare 4 Months [] SPR (3M) []OTHER: SECONDARY INSURANCE: BENEFIT ON PLAN: [] NO [] YES BENEFIT MAX: [] NO [] YES -- BENEFIT MAX: $ AUTH REQUIRED FROM SECONDARY [] NO [] YES DIET AND EXERCISE REQUIREMENT SECONDARY [] NONE []3M [] 6M [] Medicare 4 months [] SPR (3M) []OTHER: ___ [] Discussed with patient: Financial cost overview (document signed and pt given copy at new pt consult visit with surgeon), Initial appointments: Bariatric Nutrition Assessment (BNA) & Diet and Exercise (DE) Patient to look for yellow envelope in mail. This yellow envelope will contain orders for labs, testing and required clearances. Pt encouraged to complete early in program to prevent delays. Encourage blood work to be draw by 1st DE appointment. [] Reviewed OOP cost, including: [] Overview of inpatient admission benefits - estimated inpatient co-pays, deductibles and/or co-insurance - Estimated OOP costs form reviewed with patient, and copy given to patient at new pt visit. [] Reviewed next steps with patient: 1) Scheduled at new pt surgeon visit: Electrolytic Etcher (RD) for a Nutrition Assessment (BNA) and Pre-operative Diet and Exercise (DE) appointment #1. [] Patient reminded to arrive 15 minutes early for check in. Late arrivals may need to be rescheduled. 2) Schedule: Diet and Exercise Apt #2 only scheduled after initial BNA and DE completed, 3) Behavioral Health apt scheduled after DE started. Reviewed rational and goal of Behavioral Health appointments. 4) [] Reinforced need to cancel any WMI appointments 48 hours in advance. Cautioned NS/Same day cancellations may result in delay in program or program completion hold. Noted: DE series needs to be a monthly series or insurance company may require repeat of the entire series. 5) [] Smoker/tobacco products including vaping: reviewed need for cessation before surgery clearance and life long abstinence after surgery for best outcomes. Patient navigation to surgery: [] Explained to patient that average time from initial consult to date of surgery can be 6-8 months. - Process can take longer if there are cancelled appointments, delays in testing and/or additional clearances that needs to be completed. - Reviewed importance of patient active engagement in making and keeping appointments to keep the process moving. - Reinforced need to cancel appointments at least 48 hours in advance. Reviewed that instances of No Shows and Same Day Appointment Cancellations may result in program/surgery delay or hold. [] Patient advised of importance of having voicemail and MyChart for office communications and lab/testing results before and after surgery. documented in this encounter [facility] [employer] 05-08-2025 Telephone encounter Note EGD ORDER SENT TO [address] CHEMISTR[employer] QUALITY CONTROL TECHNICIAN ORDERS PENDING PRE OP CHECKLIST SCANNED INTO MEDIA SENT TO [facility] 05-08-2025 Telephone encounter Note PLAN Encounter Diagnoses Name Primary? Morbid obesity, unspecified obesity type (HCC) Yes Morbid obesity with BMI of 45.0-49.9, adult (HCC) Type 2 diabetes mellitus with morbid obesity (HCC) I have recommended proceeding with the evaluation and work-up for the primary procedure as outlined below: Dr. García PATIENT SUMMARY Hemant Garcia 34 y.o. female with Body mass index is 46.5 kg/m . Laparoscopic Sleeve Gastrectomy DM[x] HTN[] LEXX[] GERD[] HL[] OA[] Date of Surgery: TBD MP PCP: INITIAL TESTING RESULTS Labwork [x] CMP, TSH, Fasting Lipid Profile, Mg, Zinc, Vit B1 (whole blood), Vit B12, 25-OH Vit D, Fe, Ferritin, Folate Tobacco [x] Serum Nicotine / Cotinine [] Negative [] Positive EGD [x] Dx: [] GERD [x] Dyspepsia [] Other Pathology [x] H. pylori [] Negative [] Positive UGI [x] [] not ordered if patient is a Iliana en Y US Abdomen [x] [] not ordered LEXX eval [x] [] On CPAP / Obtain settings 2 months ago was checked Hematology [] [] Hypercoagulation panel Toxicology [x] [x] Urine drug screen [x] EtOH screen Addtional [x] [x] Hgb A1c INITIAL CONSULTATIONS CLEARANCE / MANAGEMENT Psychology [x] Dr. Qiuitivirgilio [x] Cardiology [x] Pulmonary [x] Others [] []Heme/Onc []Psychiatry []Pain mgmt PSD [] Physician supervised diet: []None []3 mos [x]6 mos Preop diet [] Preop low calorie diet: []None []1 wk [x]2 wks FINAL PRE-OP TESTING RESULTS Labwork [x] [x]Pre-op CBC [x]BMP []Serum Nicotine / Cotinine EKG [x] CXR [x] POST-OP MEDICATIONS Ulcer Ppx [] Omeprazole 20 mg PO []QD []BID Gallstone Ppx [] Ursodiol 300 mg []BID DVT Ppx [x] DVT prophylaxis per final preop visit estimated risk Estimated calculated risk: % Schedule final pre-operative office visit with surgeon, pre-operative education class, and pre-operative exercise class prior to date of surgery ATTESTATION I reviewed with the patient the details of the proposed operation. The risks benefits and options were discussed. Risks included but were not limited to bleeding, infection, damage to other surrounding organs, cardio-pulmonary complications related to anesthesia, conversion from laparoscopic to and open procedure, the need for reoperative or endoscopic therapy, the potential for prolonged mechanical ventilation, and . All questions were fully answered to the patient's satisfaction and they wish to proceed with surgical intervention. Sleeve Stop smoking Liver biopsy I spent the visit was spent as face to face encounter, counseling the patient and discussing the risks,benefits and options of surgery as well as the perioperative care plan. The patient was seen and examined independently and relevant data including a full chart rreview was performed by myself. [facility] [employer] 05-08-2025 Miscellaneous Notes TE already sent to Mt amor is not in the office today I did advise patient on this and messaged mt to see what she would like to go forward with as far as patients appointment scheduled tomorrow. Name of caller: Hemant Contact phone number: [phone] Relationship to Patient: Self Provider: Practice: [place] [facility] Chief Complaint/Reason for Call: Pt called with concerns of hand foot and mouth , denied triage just wanting to make sure office received photos sent and it wanting to hear back from the office please advise as there are also other TE from triage and the pt messages Best time of day caller can be reached: any Patient advised that office/PCP has 24-48 business hours to return their call: No documented in this encounter [facility] [employer] 05-08-2025 Telephone encounter Note TE already sent to Mt amor is not in the office today I did advise patient on this and messaged mt to see what she would like to go forward with as far as patients appointment scheduled tomorrow. [facility] 05-08-2025 Telephone encounter Note Name of caller: Hemant Contact phone number: [phone] Relationship to Patient: Self Provider: Practice: [facility] Chief Complaint/Reason for Call: Pt called with concerns of hand foot and mouth , denied triage just wanting to make sure office received photos sent and it wanting to hear back from the office please advise as there are also other TE from triage and the pt messages Best time of day caller can be reached: any Patient advised that office/PCP has 24-48 business hours to return their call: No [facility] 05-08-2025 Telephone encounter Note Do you want to make her a virtual visit? Please advise [facility] 05-08-2025 Telephone encounter Note I spoke with patient and she states it is not bed bugs, her son just got diagnosed with hand, foot, mouth the other day and she is sending us pictures of her hands. She was very upset when I spoke with her and states her temperature was 103.0. [facility] 05-07-2025 Hospital Discharg e instructions Patient Education 05/07/2025 09:32:42 Erythema Erythema Erythema means a reddening of the skin. If the condition is just in one area of your body, it can mean that you have inflammation, irritation, or infection of the skin. Erythema over a joint can be a sign of joint infection. When erythema is spread over most of your body, like a rash, it is usually a sign of a more general problem. This could be an allergic reaction, viral or bacterial infection, or an immune system disease. The cause of your condition is not clear. It may be hard to diagnose the exact cause of an illness in its early stages. More time may be needed before doctors can make a diagnosis. Home care Follow these guidelines when caring for yourself at home: Watch for any new symptoms. Tell your healthcare provider about any that show up. You may use acetaminophen or ibuprofen to control pain, unless another medicine was prescribed. If you have chronic liver or kidney disease, talk with your provider before using these medicines. Also talk with your provider if you ve had a stomach ulcer or gastrointestinal bleeding. Don t give aspirin to anyone under 18 years of age who is ill with a fever. Have anyone who touches your skin wash his or her hands with soap and water. Don t share towels or clothes. Keep the affected area clean and dry. Raising the affected area above the level of your heart may help ease swelling. Follow-up care Follow up with your healthcare provider, or as advised. When to seek medical advice Call your healthcare provider right away if any of these occur: The redness does not go away within 2 to 3 days Pain or redness that gets worse Fluid or pus drains from the reddened area New joint pain New rash Fever of 100.4 F (38 C) or higher, or as directed by your healthcare provider Severe headache, neck pain, drowsiness, or confusion Weakness, dizziness, repeated vomiting, or diarrhea [id number] [employer]. [address] [place] [address]. All rights reserved. This information is not intended as a substitute for professional medical care. Always follow your healthcare professional's instructions. Follow Up Care 05/07/2025 08:59:04 With:dermatology Address: [phone] When:2-4 days [facility] 05-07-2025 Telephone encounter Note Lm for pt to return call- give Mt's message below [facility] [employer] 05-07-2025 Telephone encounter Note Noted. I see she is currently on the schedule for 05/09/2025. Would recommend verifying if formal diagnosis of bedbugs was given or not. [facility] 05-07-2025 Telephone encounter Note S: Patient spoke with [facility] nurse regarding rash on hands, feet, abdomen, and face, sore throat, drainage B: Onset of symptoms/concern 4 days A: States her neighbor currently a has hand/foot/mouth. Had recent fever and currently complained of chills. Nurse spoke briefly with patient. She stated she was in the ED currently. Tearful because she states they think its bug bites. Nurse warehouse operations manager entered room to talk with patient so patient disconnected call with triage nurse. R: TE to office for review and follow up as needed. Patient understands care advice. To call office back if needs further assistance. No further needs at this time. Patient instructed to call back with new or worsening symptoms. Reason for Disposition Patient wants to be seen Protocols used: Rash or Redness - [id number] [facility] 05-07-2025 Note Discharge Instructions Thank you for allowing [facility] to assist you with your healthcare needs. The following is important discharge information regarding your hospital visit. Diagnosis from Today's Visit Rash What to Do Next Instructions from Your Care Team No qualifying data available. Post Acute Orders No qualifying data available. You Need to Schedule the Following Appointments Follow Up with dermatology When:Within 2-4 days Where: [phone] Allergies Reglan Medications Please ask your primary doctor or pharmacist before taking any other medication not listed, including over the counter drugs, herbal medications, vitamins and or supplements as they may interact with your home medications. What How Much When Why Instructions Last Dose Changed predniSONE (predniSONE 10 mg oral tablet) 3 by mouth Two (2) times a day Coxsackie virus exanthem Hand foot and mouth disease 6 po 1st dose then 3 po q12 Changed predniSONE (predniSONE 50 mg oral tablet) 1 tab(s) by mouth Once a day Duration: 5 Days Take with food Printed Prescription Unchanged amoxicillin-clavulanate (Augmentin) Unchanged fluticasone nasal (Flonase 50 mcg/ inh nasal spray) 1 spray(s) in the nose Two (2) times a day Eustachian tube disorder in each nostril Unchanged lidocaine topical (Lidoderm 5% topical patch) 1 patch(es) Transdermal Once a day Unchanged Misc Medication Unchanged sulfaSALAzine 1,000 Milligram by mouth Two (2) times a day Unchanged SUMAtriptan (Imitrex) Once Please take this list to your next doctor s visit. Bring all medications you take, including over the counter medications, herbals and other supplements with you to your doctor s visit. Patients and families are reminded to discard old lists and to update any records with all medication providers or retail pharmacies. Medication Leaflets prednisone (PRED ni sone) Gretchen What is the most important information I should know about prednisone? You should not use prednisone if you have a fungal infection anywhere in your body. You should not stop using prednisone suddenly. Follow your doctor's instructions about tapering your dose. What is prednisone? Prednisone is a steroid that reduces inflammation in the body, and also suppresses your immune system. Prednisone is used to treat many different conditions such as hormonal disorders, skin diseases, arthritis, lupus, psoriasis, allergic conditions, ulcerative colitis, Crohn's disease, eye diseases, lung diseases, asthma, tuberculosis, blood cell disorders, kidney disorders, leukemia, lymphoma, multiple sclerosis, organ transplant rejection, swelling from a brain tumor or injury. Prednisone may also be used for purposes not listed in this medication guide. What should I discuss with my healthcare provider before taking prednisone? You should not use prednisone if you are allergic to it, or if you have a fungal infection anywhere in your body. Steroid medication can weaken your immune system, making it easier for you to get an infection or worsening an infection you already have. Tell your doctor about any illness or infection you've had within the past several weeks. Tell your doctor if you have ever had: heart problems, high blood pressure, or a heart attack; glaucoma or cataracts; herpes infection of the eyes; past or present tuberculosis; a parasite infection that causes diarrhea (such as threadworms); any illness that causes diarrhea; underactive thyroid; diabetes; a stomach ulcer, diverticulitis; a colostomy or ileostomy; osteoporosis or low bone mineral density (steroid medication can increase your risk of bone loss); low levels of calcium or potassium in your blood; cirrhosis or other liver disease; mental illness or psychosis; or a muscle disorder such as myasthenia gravis. Long-term use of steroids may lead to bone loss (osteoporosis), especially if you smoke or drink alcohol, if you do not exercise, or if you do not get enough vitamin D or calcium in your diet. It is not known whether this medicine will harm an unborn baby. Tell your doctor if you are or plan to become . You should not breastfeed while using prednisone. How should I take prednisone? Follow all directions on your prescription label and read all medication guides or instruction sheets. Your doctor may occasionally change your dose. Use the medicine exactly as directed. Prednisone is taken daily or every other day, depending on the condition being treated. You may need to take the medicine at a certain time of day. Follow your doctor's instructions about when and how often to take this medicine. Take with food if prednisone upsets your stomach. Measure liquid medicine carefully. Use the dosing syringe provided, or use a medicine dose-measuring device (not a kitchen spoon). Swallow the delayed-release tablet whole and do not crush, chew, or break it. Prednisone can weaken (suppress) your immune system, and you may get an infection more easily. Call your doctor if you have signs of infection (fever, weakness, cold or flu symptoms, skin sores, diarrhea, frequent or recurring illness). If you have major surgery or a severe injury or infection, your prednisone dose needs may change. Make sure any doctor caring for you knows you are using this medicine. If you use this medicine long-term, you may need medical tests and vision exams. In case of emergency, wear or carry medical identification to let others know you use a steroid. You should not stop using prednisone suddenly. Follow your doctor's instructions about tapering your dose. Store at room temperature away from moisture, heat, and light. What happens if I miss a dose? Take the medicine as soon as you can, but skip the missed dose if it is almost time for your next dose. Do not take two doses at one time. What happens if I overdose? Seek emergency medical attention or call the Poison Help line at . High doses or long-term use of prednisone can lead to thinning skin, easy bruising, changes in body fat (especially in your face, neck, back, and waist), increased acne or facial hair, menstrual problems, impotence, or loss of interest in sex. What should I avoid while taking prednisone? Do not receive a 'live' vaccine while using prednisone. The vaccine may not work as well and may not fully protect you from disease. Live vaccines include measles, mumps, rubella (MMR), polio, rotavirus, typhoid, yellow fever, varicella (chickenpox), zoster (shingles), and nasal flu (influenza) vaccine. Avoid being near people who are sick or have infections. Call your doctor for preventive treatment if you are exposed to chickenpox or measles. These conditions can be serious or even fatal in people who are using steroid medicine. Avoid drinking alcohol. What are the possible side effects of prednisone? Get emergency medical help if you have signs of an allergic reaction: hives; difficult breathing; swelling of your face, lips, tongue, or throat. Call your doctor at once if you have: muscle pain or weakness; blurred vision, tunnel vision, eye pain, or seeing halos around lights; severe depression, changes in personality, unusual thoughts or behavior; bloody or tarry stools, coughing up blood or vomit that looks like coffee grounds; swelling, rapid weight gain, feeling short of breath; irregular heartbeats; severe headache, pounding in your neck or ears; decreased adrenal gland hormones--muscle weakness, tiredness, diarrhea, nausea, menstrual changes, skin discoloration, craving salty foods, and feeling light-headed; or low potassium level--leg cramps, constipation, irregular heartbeats, fluttering in your chest, increased thirst or urination, numbness or tingling, muscle weakness or limp feeling. Prednisone can affect growth in children. Tell your doctor if your child is not growing at a normal rate while using this medicine. Common side effects may include: weight gain (especially in your face or your upper back and torso); increased appetite; mood changes, trouble sleeping; changes in your menstrual periods; problems with memory or thought; muscle or joint pain; weakness; headache, dizziness, spinning sensation; nausea, bloating, loss of appetite; slow wound healing; or acne, increased sweating, thinning skin, bruising, pinpoint spots under your skin. This is not a complete list of side effects and others may occur. Call your doctor for medical advice about side effects. You may report side effects to FDA at 0-821-TTM-0062. What other drugs will affect prednisone? Sometimes it is not safe to use certain medications at the same time. Some drugs can affect your blood levels of other drugs you take, which may increase side effects or make the medications less effective. Tell your doctor about all your current medicines. Many drugs can affect prednisone, especially: bupropion; cyclosporine; digoxin; ketoconazole; an antibiotic; control pills or hormone replacement therapy; a diuretic or 'water pill'; insulin or oral diabetes medicine; a blood thinner--warfarin, Coumadin, Jantoven; or NSAIDs (nonsteroidal anti-inflammatory drugs)--aspirin, ibuprofen (Advil, Motrin), naproxen (Aleve), celecoxib, diclofenac, indomethacin, meloxicam, and others. This list is not complete and many other drugs may affect prednisone. This includes prescription and [id number] medicines, vitamins, and herbal products. Not all possible drug interactions are listed here. Where can I get more information? Your pharmacist can provide more information about prednisone. Remember, keep this and all other medicines out of the reach of children, never share your medicines with others, and use this medication only for the indication prescribed. Every effort has been made to ensure that the information provided by [employer] is accurate, up-to-date, and complete, but no guarantee is made to that effect. Drug information contained herein may be time sensitive. [employer] information has been compiled for use by healthcare practitioners and consumers in the [place] and therefore [employer] does not warrant that uses outside of the [place] are appropriate, unless specifically indicated otherwise. [employer] drug information does not endorse drugs, diagnose patients or recommend therapy. [employer] drug information is an informational resource designed to assist licensed healthcare practitioners in caring for their patients and/or to serve consumers viewing this service as a supplement to, and not a substitute for, the expertise, skill, knowledge and judgment of healthcare practitioners. The absence of a warning for a given drug or drug combination in no way should be construed to indicate that the drug or drug combination is safe, effective or appropriate for any given patient. [employer] does not assume any responsibility for any aspect of healthcare administered with the aid of information [employer] provides. The information contained herein is not intended to cover all possible uses, directions, precautions, warnings, drug interactions, allergic reactions, or adverse effects. If you have questions about the drugs you are taking, check with your doctor, nurse or pharmacist. Copyright 0667-3421 [employer]. Version: 10. Revision Date: 11/03/2018. Education Materials Erythema Erythema means a reddening of the skin. If the condition is just in one area of your body, it can mean that you have inflammation, irritation, or infection of the skin. Erythema over a joint can be a sign of joint infection. When erythema is spread over most of your body, like a rash, it is usually a sign of a more general problem. This could be an allergic reaction, viral or bacterial infection, or an immune system disease. The cause of your condition is not clear. It may be hard to diagnose the exact cause of an illness in its early stages. More time may be needed before doctors can make a diagnosis. Home care Follow these guidelines when caring for yourself at home: Watch for any new symptoms. Tell your healthcare provider about any that show up. You may use acetaminophen or ibuprofen to control pain, unless another medicine was prescribed. If you have chronic liver or kidney disease, talk with your provider before using these medicines. Also talk with your provider if you ve had a stomach ulcer or gastrointestinal bleeding. Don t give aspirin to anyone under 18 years of age who is ill with a fever. Have anyone who touches your skin wash his or her hands with soap and water. Don t share towels or clothes. Keep the affected area clean and dry. Raising the affected area above the level of your heart may help ease swelling. Follow-up care Follow up with your healthcare provider, or as advised. When to seek medical advice Call your healthcare provider right away if any of these occur: The redness does not go away within 2 to 3 days Pain or redness that gets worse Fluid or pus drains from the reddened area New joint pain New rash Fever of 100.4 F (38 C) or higher, or as directed by your healthcare provider Severe headache, neck pain, drowsiness, or confusion Weakness, dizziness, repeated vomiting, or diarrhea 5879-7321 [employer]. [address] [place] [address]. All rights reserved. This information is not intended as a substitute for professional medical care. Always follow your healthcare professional's instructions. Additional Information VACCINATE! IT SAVES LIVES! Members of the community who have not yet received the COVID-19 vaccine and would like to receive it can visit one of [facility] vaccine clinics. There are many vaccine clinic locations within the [facility]. For locations and available times, please visit [email or web address] It is important to note that some COVID mobile vaccine clinics are held outdoors and may be canceled in rainy or stormy conditions. To learn more about pediatric vaccinations (ages 5-11), we invite you to visit the [employer] webpage. [email or web address]/pa [email or web address] [email or web address].html To learn more about the COVID-19 vaccine, we invite you to visit the CDC website for a list of frequently asked questions. https://www.cdc.gov/coronavirus/2 019-ncov/vaccines/faq.html [facility] Patient Portal Access Instructions: Stay connected with your healthcare team and access your personal medical information anytime with the [employer] Patient Portal. If you would like a full copy of your medical records please contact the [facility] Medical Records Department Wednesday through Wednesday between 8a.m. and 4:30p.m. Please follow the directions below to access the portal: 1.Access the email account you provided upon registration to the hospital.2.Look for an invitation email from [facility].3.Open the email and access the invitation link: Accept Invitation to [facility]4.Fill in the required tripathi to create your account. To access your account, visit [email or web address] or scan the QR code above. Click the blue button labeled Access Patient Portal and then log in with the username and password that you created in the steps above. You can then view a summary of results, a summary of your visits, and the ability to download your summaries to your computer or send the information securely to a physician. Remember that your healthcare information is confidential, so carefully consider who you will allow to register on the [employer] Patient Portal for access to your information. You can also access the [employer] Patient Portal on the [employer]. Simply click on Health Records under Health Data and then click on the [employer] logo. HOW TO SAFELY DISPOSE OF PRESCRIPTION MEDICATIONS Please use one of the following methods to safely dispose of your unused medications. 1.Use a drug disposal kit: the drug disposal pouch allows you to safely discard your old and unused drugs. Ask your nurse to give you one when you are discharged.2.Visit a local take-back location: Many local pharmacies and police departments have programs that collect old and unwanted prescription drugs. Call your local pharmacy or go to http://OpenDoors.su.slinkset/3C1Hr5w to find one close to you.3.Make use of household items: Use cat litter or old coffee grounds to dispose medications if other options are not available. Mix your drugs with these household products, seal them in an airtight container and throw it into the garbage. Call [facility]: [phone] to be sure your drugs can be disposed of in this way. Some medicines may require a different approach.4.Never flush your medications down the toilet. IF YOU HAVE BEEN PRESCRIBED AN OPIOIDS FOR PAIN If you have been prescribed an opioid (such as hydrocodone, oxycodone or morphine), it is critical to understand the possible side effects and risks of opioid pain medications. Even when taken as directed, opioids can have several side effects including: Tolerance, meaning you might need to take more of a medication for the same pain relief. Nausea, vomiting and/or constipation. Sleepiness, dizziness, dry mouth, confusion, depression or itching. Physical dependence, meaning you have withdrawal symptoms when a medication is stopped ? this can develop within a few days. KNOW YOUR RESPONSIBILITIES It is important to know exactly how much and how often to take the opioid pain medications you are prescribed. Never take opioids in higher amounts or more often than prescribed. Do not combine opioids with alcohol or other drugs that cause drowsiness, such as benzodiazepines, also known as benzos, including diazepam and alprazolam, muscle relaxants or sleep aids. Never sell or share prescription opioids. This is illegal. Store opioids in a secure place and out of reach of others (including children, family, friends and visitors). The last page(s) of this document has been signed and retained as a CHART COPY Signatures Patient Education Materials Erythema Medication Leaflets prednisone My discharge plan and instructions have been reviewed and explained to me and I,HEMANT GARCIA understand my current condition and have read and understand these discharge instructions. I have received a written copy of the plan/instructions. If I have questions, I am aware that I should contact my doctor. 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 Signature: Date/Time: Relationship to Patient: ____ Witness Name/Signature: Date/Time: [facility] 04-30-2025 Note Initial New BCC surg ical patient Navigation & Financial Counseling Discussion Patient Communication: In office SURGEON: [] JEWELS [] AD [x] MP [] TB [] LM PROCEDURE: [] LRYGB [] LSG [] CRISTIN-S [] CRISTIN [] UNDECIDED [] REV: SPECIFY: Confirmed pt wants to continue with surgical program/plan [] YES [] NO (complete program withdrawal note/process) CO-MORBIDS: [] NONE [] DM []HTN [] LEXX []GERD [] OTH: PRIVATE PAY: [] NO []YES DATE OF INITIAL BENEFITS VERIFICATION: TRANSFER FU: [] YES [] NO PRIMARY INSURANCE: Pay[place]: [place] / Plan: [place] ODM / Product Type: Medicaid HMO / BENEFIT ON PLAN: [] NO [] YES BENEFIT MAX: [] NO [] YES -- BENEFIT MAX: $ EMPLOYER: DIET AND EXERCISE (DE) REQUIREMENT PRIMARY [] NONE []3M [x] 6M []9M [] Medicare 4 Months [] SPR (3M) []OTHER: SECONDARY INSURANCE: BENEFIT ON PLAN: [] NO [] YES BENEFIT MAX: [] NO [] YES -- BENEFIT MAX: $ AUTH REQUIRED FROM SECONDARY [] NO [] YES DIET AND EXERCISE REQUIREMENT SECONDARY [] NONE []3M [] 6M [] Medicare 4 months [] SPR (3M) []OTHER: ___ [] Discussed with patient: Financial cost overview (document signed and pt given copy at new pt consult visit with surgeon), Initial appointments: Bariatric Nutrition Assessment (BNA) & Diet and Exercise (DE) Patient to look for yellow envelope in mail. This yellow envelope will contain orders for labs, testing and required clearances. Pt encouraged to complete early in program to prevent delays. Encourage blood work to be draw by 1st DE appointment. [] Reviewed OOP cost, including: [] Overview of inpatient admission benefits - estimated inpatient co-pays, deductibles and/or co-insurance - Estimated OOP costs form reviewed with patient, and copy given to patient at new pt visit. [] Reviewed next steps with patient: 1) Scheduled at new pt surgeon visit: Electrolytic Etcher (RD) for a Nutrition Assessment (BNA) and Pre-operative Diet and Exercise (DE) appointment #1. [] Patient reminded to arrive 15 minutes early for check in. Late arrivals may need to be rescheduled. 2) Schedule: Diet and Exercise Apt #2 only scheduled after initial BNA and DE completed, 3) Behavioral Health apt scheduled after DE started. Reviewed rational and goal of Behavioral Health appointments. 4) [] Reinforced need to cancel any WMI appointments 48 hours in advance. Cautioned NS/Same day cancellations may result in delay in program or program completion hold. Noted: DE series needs to be a monthly series or insurance company may require repeat of the entire series. 5) [] Smoker/tobacco products including vaping: reviewed need for cessation before surgery clearance and life long abstinence after surgery for best outcomes. Patient navigation to surgery: [] Explained to patient that average time from initial consult to date of surgery can be 6-8 months. - Process can take longer if there are cancelled appointments, delays in testing and/or additional clearances that needs to be completed. - Reviewed importance of patient active engagement in making and keeping appointments to keep the process moving. - Reinforced need to cancel appointments at least 48 hours in advance. Reviewed that instances of No Shows and Same Day Appointment Cancellations may result in program/surgery delay or hold. [] Patient advised of importance of having voicemail and MyChart for office communications and lab/testing results before and after surgery. [facility] 04-30-2025 Telephone encounter Note Initial New [facility] surgical patient Navigation & Financial Counseling Discussion Patient Communication: In office SURGEON: [] JZ [] AD [x] MP [] TB [] LM PROCEDURE: [] LRYGB [] LSG [] CRISTIN-S [] CRISTIN [] UNDECIDED [] REV: SPECIFY: Confirmed pt wants to continue with surgical program/plan [] YES [] NO (complete program withdrawal note/process) CO-MORBIDS: [] NONE [] DM []HTN [] LEXX []GERD [] OTH: PRIVATE PAY: [] NO []YES DATE OF INITIAL BENEFITS VERIFICATION: TRANSFER FU: [] YES [] NO PRIMARY INSURANCE: Pay[place]: [place] / Plan: [place] ODM / Product Type: Medicaid HMO / BENEFIT ON PLAN: [] NO [] YES BENEFIT MAX: [] NO [] YES -- BENEFIT MAX: $ EMPLOYER: DIET AND EXERCISE (DE) REQUIREMENT PRIMARY [] NONE []3M [x] 6M []9M [] Medicare 4 Months [] SPR (3M) []OTHER: SECONDARY INSURANCE: BENEFIT ON PLAN: [] NO [] YES BENEFIT MAX: [] NO [] YES -- BENEFIT MAX: $ AUTH REQUIRED FROM SECONDARY [] NO [] YES DIET AND EXERCISE REQUIREMENT SECONDARY [] NONE []3M [] 6M [] Medicare 4 months [] SPR (3M) []OTHER: ___ [] Discussed with patient: Financial cost overview (document signed and pt given copy at new pt consult visit with surgeon), Initial appointments: Bariatric Nutrition Assessment (BNA) & Diet and Exercise (DE) Patient to look for yellow envelope in mail. This yellow envelope will contain orders for labs, testing and required clearances. Pt encouraged to complete early in program to prevent delays. Encourage blood work to be draw by 1st DE appointment. [] Reviewed OOP cost, including: [] Overview of inpatient admission benefits - estimated inpatient co-pays, deductibles and/or co-insurance - Estimated OOP costs form reviewed with patient, and copy given to patient at new pt visit. [] Reviewed next steps with patient: 1) Scheduled at new pt surgeon visit: Electrolytic Etcher (RD) for a Nutrition Assessment (BNA) and Pre-operative Diet and Exercise (DE) appointment #1. [] Patient reminded to arrive 15 minutes early for check in. Late arrivals may need to be rescheduled. 2) Schedule: Diet and Exercise Apt #2 only scheduled after initial BNA and DE completed, 3) Behavioral Health apt scheduled after DE started. Reviewed rational and goal of Behavioral Health appointments. 4) [] Reinforced need to cancel any WMI appointments 48 hours in advance. Cautioned NS/Same day cancellations may result in delay in program or program completion hold. Noted: DE series needs to be a monthly series or insurance company may require repeat of the entire series. 5) [] Smoker/tobacco products including vaping: reviewed need for cessation before surgery clearance and life long abstinence after surgery for best outcomes. Patient navigation to surgery: [] Explained to patient that average time from initial consult to date of surgery can be 6-8 months. - Process can take longer if there are cancelled appointments, delays in testing and/or additional clearances that needs to be completed. - Reviewed importance of patient active engagement in making and keeping appointments to keep the process moving. - Reinforced need to cancel appointments at least 48 hours in advance. Reviewed that instances of No Shows and Same Day Appointment Cancellations may result in program/surgery delay or hold. [] Patient advised of importance of having voicemail and MyChart for office communications and lab/testing results before and after surgery. [facility] [employer] [facility] 04-30-2025 Miscellaneous Notes Initial New [facility] surgical patient Navigation & Financial Counseling Discussion Patient Communication: In office SURGEON: [] JEWELS [] AD [x] MP [] TB [] LM PROCEDURE: [] LRYGB [] LSG [] CRISTIN-S [] CRISTIN [] UNDECIDED [] REV: SPECIFY: Confirmed pt wants to continue with surgical program/plan [] YES [] NO (complete program withdrawal note/process) CO-MORBIDS: [] NONE [] DM []HTN [] LEXX []GERD [] OTH: PRIVATE PAY: [] NO []YES DATE OF INITIAL BENEFITS VERIFICATION: TRANSFER FU: [] YES [] NO PRIMARY INSURANCE: Pay[place]: [place] / Plan: [place] / Product Type: Medicaid HMO / BENEFIT ON PLAN: [] NO [] YES BENEFIT MAX: [] NO [] YES -- BENEFIT MAX: $ EMPLOYER: DIET AND EXERCISE (DE) REQUIREMENT PRIMARY [] NONE []3M [x] 6M []9M [] Medicare 4 Months [] SPR (3M) []OTHER: SECONDARY INSURANCE: BENEFIT ON PLAN: [] NO [] YES BENEFIT MAX: [] NO [] YES -- BENEFIT MAX: $ AUTH REQUIRED FROM SECONDARY [] NO [] YES DIET AND EXERCISE REQUIREMENT SECONDARY [] NONE []3M [] 6M [] Medicare 4 months [] SPR (3M) []OTHER: ___ [] Discussed with patient: Financial cost overview (document signed and pt given copy at new pt consult visit with surgeon), Initial appointments: Bariatric Nutrition Assessment (BNA) & Diet and Exercise (DE) Patient to look for yellow envelope in mail. This yellow envelope will contain orders for labs, testing and required clearances. Pt encouraged to complete early in program to prevent delays. Encourage blood work to be draw by 1st DE appointment. [] Reviewed OOP cost, including: [] Overview of inpatient admission benefits - estimated inpatient co-pays, deductibles and/or co-insurance - Estimated OOP costs form reviewed with patient, and copy given to patient at new pt visit. [] Reviewed next steps with patient: 1) Scheduled at new pt surgeon visit: Electrolytic Etcher (RD) for a Nutrition Assessment (BNA) and Pre-operative Diet and Exercise (DE) appointment #1. [] Patient reminded to arrive 15 minutes early for check in. Late arrivals may need to be rescheduled. 2) Schedule: Diet and Exercise Apt #2 only scheduled after initial BNA and DE completed, 3) Behavioral Health apt scheduled after DE started. Reviewed rational and goal of Behavioral Health appointments. 4) [] Reinforced need to cancel any WMI appointments 48 hours in advance. Cautioned NS/Same day cancellations may result in delay in program or program completion hold. Noted: DE series needs to be a monthly series or insurance company may require repeat of the entire series. 5) [] Smoker/tobacco products including vaping: reviewed need for cessation before surgery clearance and life long abstinence after surgery for best outcomes. Patient navigation to surgery: [] Explained to patient that average time from initial consult to date of surgery can be 6-8 months. - Process can take longer if there are cancelled appointments, delays in testing and/or additional clearances that needs to be completed. - Reviewed importance of patient active engagement in making and keeping appointments to keep the process moving. - Reinforced need to cancel appointments at least 48 hours in advance. Reviewed that instances of No Shows and Same Day Appointment Cancellations may result in program/surgery delay or hold. [] Patient advised of importance of having voicemail and MyChart for office communications and lab/testing results before and after surgery. documented in this encounter [facility] 04-30-2025 History of Presen t illness Narrative [facility] SURGICAL WEIGHT LOSS MANAGEMENT PROGRAM Rooming Note - INITIAL CONSULTATION Patient: Hemant Garcia Date of : 1990 Service Date: 04/30/2025 Patient is here today to discuss the possibility of weight loss surgery. Physician Supervised D/E: 6 Weight Metrics: Vitals BP: 129/81 Heart Rate: 76 Resp: 16 Temp: 36.6 C (97.9 F) Baseline Measures Initial Height: 5' 7.75 (172.1 cm) Initial Weight: 303 lb 9.6 oz (138 kg) Initial BMI: 46.6 Initial EBW: 164 lb 13.6 oz (74.8 kg) Initial Waist Cricumference: 53.75 Initial Neck Circumference: 17.75 Measurements IBW in lbs: 138.75 lb Initial BMI: 46.50 Weight: (!) 303 lb 9.6 oz (138 kg) BMI (Calculated): 46.6 % Excess Weight Loss: 0 Percent Weight Change Since Last Visit: 137.71 kg Initial Excess Weight (kg): -62.94 kg Initial Neck Circumference: 17.75 Initial Waist Cricumference: 53.75 History of Difficult Intubation: No Patient is not on home O2 Manual provided Yes Completed by: Naomy Gould Images from the original note were not included. BARIATRIC AND METABOLIC SURGERY [facility] INITIAL EVALUATION - HISTORY AND PHYSICAL 04/30/25 PATIENT: Hemant Garcia DATE OF : 1990 HISTORY OF PRESENT ILLNESS Chief Complaint: Morbid Obesity and associated comorbid conditions. Hemant Garcia is a 34 y.o. female with morbid obesity and associated comorbid conditions who [facility] for bariatric surgery. No gerd LOST 40lbs on her own but now stalled 45 min of exercise The patient stands Height: 5' 7.75 (172.1 cm) tall with a weight of Weight: (!) 303 lb 9.6 oz (138 kg) , and has a BMI of Body mass index is 46.5 kg/m .. The patient has failed multiple attempts at non-surgical weight loss, and is now seeking surgical intervention to promote permanent and consistent weight loss. The patient suffers from multiple co-morbidities as a result of morbid obesity as outlined in the past medical history. The patient denies a history of myocardia infarction, deep vein thrombosis, pulmonary embolism, renal failure, hepatic failure, stroke, and seizure. She does smoke, and does not drink alcohol. Review of Systems Constitutional: Positive for activity change. HENT: Negative. Eyes: Negative. Respiratory: Negative. Cardiovascular: Negative. Gastrointestinal: Negative. Endocrine: Negative. Genitourinary: Negative. Musculoskeletal: Positive for arthralgias and back pain. Neurological: Negative. Hematological: Negative. Psychiatric/Behavioral: Negative. PAST HISTORIES Medical History[1] Surgical History[2] Family History[3] Social History Tobacco Use Smoking status: Every Day Current packs/day: 0.00 Average packs/day: 0.3 packs/day for 15.0 years (3.8 ttl pk-yrs) Types: Cigarettes Start date: 2004 Last attempt to quit: 04/13/2019 Years since quittin.0 Smokeless tobacco: Never Tobacco comments: Quit smokin black and milds a week - vaped THC in the past Substance Use Topics Alcohol use: Never Patient's Medications New Prescriptions No medications on file Previous Medications ALBUTEROL 108 (90 BASE) MCG/ACT INHALER Inhale 2 puffs every 6 hours as needed for wheezing. AMITRIPTYLINE (ELAVIL) 50 MG TABLET Take 1 tablet (50 mg) by mouth daily with supper. Do not start before October 03, 2024. CONTINUOUS GLUCOSE SENSOR (Applied X-rad Technology[employer]YLE LEILANI 3 PLUS SENSOR) MISC 1 each every 14 (fourteen) days. DULAGLUTIDE (TRULICITY) 0.75 MG/0.5ML Inject 0.75 mg under the skin 1 (one) time per week. SUMATRIPTAN (IMITREX) 100 MG TABLET Take 1 tablet (100 mg) by mouth Once as needed for migraine for up to 1 dose. May repeat dose once in 2 hours if no relief. Do not exceed 2 doses in 24 hours. Modified Medications No medications on file Discontinued Medications No medications on file Allergies[4] PHYSICAL EXAM BP 129/81 Pulse 76 Temp 36.6 C (97.9 F) Resp 16 Ht 5' 7.75 (1.721 m) Wt (!) 303 lb 9.6 oz (138 kg) BMI 46.50 kg/m General: This patient is awake, alert, and oriented, with normal affect and is in no apparent distress. Cardiac: Regular rate, no murmur Respiratory: No Labored breathing, lungs clear to auscultation Abdomen: Obese, soft, non-tender, non-distended without masses/ No evidence of abdominal hernia / Incisions consistent with previous surgeries. Head and Neck: Obese, normocephalic and atraumatic/soft and supple, no lymphadenopathy or obvious bruits. Extremities: No cyanosis, clubbing or edema/ No calf tenderness/No restrictions of movement, is ambulatory without assistance. Neurological: Intact x 4 extremities, normal sensation, no focal deficits notes. Skin: Skin cool, warm and dry. No rashes or lesions noted. Rectal: Deferred LABORATORY STUDIES Laboratory Studies: No results for input(s): NA, K, CL, CO2, BUN, CREATININE, GLUCOSE, CALCIUM in the last 72 hours. No results for input(s): WBC, RBC, HGB, HCT, MCV, MCH, MCHC, RDW, PLT, MPV in the last 72 hours. No results for input(s): ALKPHOS, ALT, AST, PROT, BILITOT, BILIDIR, LIPASE in the last 72 hours. No lab exists for component: LABALBU ASSESSMENT Based on today's evaluation, the patient is a candidate for Laparoscopic Sleeve Gastrectomy. She chose Laparoscopic Sleeve Gastrectomy. In anticipation of weight reductive surgery now or in the future, we spent a great deal of time discussing the risks and benefits of , including but not limited to injury to intra-abdominal organs, breakdown of the gastric staple line, the need for re-operative therapy, prolonged hospitalization, mechanical ventilation, and . We discussed the possibility of bleeding, the need for blood transfusions, blood clots, hospital-acquired and intra-abdominal infection, anastomotic stricture, and worsening GERD. And we discussed the need for post-operative visit compliance, behavior modifications and diet changes, protein and vitamin supplementation, as well as routine scheduled and dedicated exercise. We discussed the potential weight loss benefit of approximately 60-70% of her excess body weight at 12-18 months post-op, as well as the possibility of insufficient weight loss or weight gain after 2 years post-operative time. Upon completion of all required pre-operative testing we will submit for insurance pre-authorization. If the patient has chosen or is strongly considering gastric bypass we discussed that in the event that gastric bypass could not be safely performed, such as extensive scar tissue, patient intolerance of anesthesia, excessive truncal obesity etc, the laparoscopic sleeve gastrectomy was discussed including the risks and benefits as listed above. The patient did agree to laparoscopic sleeve gastrectomy as an alternative procedure if the laparoscopic iliana en y bypass could not be performed. PLAN Encounter Diagnoses Name Primary? Morbid obesity, unspecified obesity type (HCC) Yes Morbid obesity with BMI of 45.0-49.9, adult (HCC) Type 2 diabetes mellitus with morbid obesity (HCC) I have recommended proceeding with the evaluation and work-up for the primary procedure as outlined below: Dr. García PATIENT SUMMARY Hemant Garcia 34 y.o. female with Body mass index is 46.5 kg/m . Laparoscopic Sleeve Gastrectomy DM[x] HTN[] LEXX[] GERD[] HL[] OA[] Date of Surgery: TBD MP PCP: INITIAL TESTING RESULTS Labwork [x] CMP, TSH, Fasting Lipid Profile, Mg, Zinc, Vit B1 (whole blood), Vit B12, 25-OH Vit D, Fe, Ferritin, Folate Tobacco [x] Serum Nicotine / Cotinine [] Negative [] Positive EGD [x] Dx: [] GERD [x] Dyspepsia [] Other Pathology [x] H. pylori [] Negative [] Positive UGI [x] [] not ordered if patient is a Iliana en Y US Abdomen [x] [] not ordered LEXX eval [x] [] On CPAP / Obtain settings 2 months ago was checked Hematology [] [] Hypercoagulation panel Toxicology [x] [x] Urine drug screen [x] EtOH screen Addtional [x] [x] Hgb A1c INITIAL CONSULTATIONS CLEARANCE / MANAGEMENT Psychology [x] Dietitian [x] Cardiology [x] Pulmonary [x] Others [] []Heme/Onc []Psychiatry []Pain mgmt PSD [] Physician supervised diet: []None [x]3 mos [x]6 mos Preop diet [] Preop low calorie diet: []None []1 wk [x]2 wks FINAL PRE-OP TESTING RESULTS Labwork [x] [x]Pre-op CBC [x]BMP []Serum Nicotine / Cotinine EKG [x] CXR [x] POST-OP MEDICATIONS Ulcer Ppx [] Omeprazole 20 mg PO []QD []BID Gallstone Ppx [] Ursodiol 300 mg []BID DVT Ppx [x] DVT prophylaxis per final preop visit estimated risk Estimated calculated risk: % Schedule final pre-operative office visit with surgeon, pre-operative education class, and pre-operative exercise class prior to date of surgery ATTESTATION I reviewed with the patient the details of the proposed operation. The risks benefits and options were discussed. Risks included but were not limited to bleeding, infection, damage to other surrounding organs, cardio-pulmonary complications related to anesthesia, conversion from laparoscopic to and open procedure, the need for reoperative or endoscopic therapy, the potential for prolonged mechanical ventilation, and . All questions were fully answered to the patient's satisfaction and they wish to proceed with surgical intervention. Sleeve Stop smoking Liver biopsy I spent the visit was spent as face to face encounter, counseling the patient and discussing the risks,benefits and options of surgery as well as the perioperative care plan. The patient was seen and examined independently and relevant data including a full chart rreview was performed by myself. Patient Care Team: Jacky Solares MD as PCP - General (Family Medicine) Amber García DO as Surgeon (General Surgery) [1] Past Medical History: Diagnosis Date Abnormal genetic test during 11/07/2018 11/07/18: Uni formative DNA pattern. Referral to [facility] Anxiety 2017 Arthritis [address]Razik MARTINEZ Diabetes mellitus (HCC) 10/03 Exercise-induced asthma Family history of diabetes mellitus in father Family history of ovarian cancer Gestational hypertension 12/04/2024 Group B Streptococcus carrier state affecting 12/04/2024 History of kidney stones History of migraine 2004 MRI head neg, 10/03 CT head neg History of pneumonia 06/15/2018 History of pre-eclampsia in prior , currently in first trimester 10/05/2018 HRP (high risk ) 04/09/2019 Hyperglycemia 11/2024 Obesity in 10/05/2018 Obesity BMI > 40: The following protocols represent a collaboration with physician 1. Obtain 1-hour GCT early 2. Serial growth ultrasounds starting at 32 weeks 3. Weekly NST/AZEEM starting at 32 weeks; if no co morbidities weekly NST/AZEEM starting at 36 weeks 4. Delivery at 40 weeks if cervix is ripe Smoker [2] Past Surgical History: Procedure Laterality Date SECTION (HISTORICAL) 2019 SECTION, LOW TRANSVERSE 04/09/19 SALPINGECTOMY Right 2018 benign cyst; still has left tube TUBAL LIGATION Not tubes tied but one tube removed [3] Family History Problem Relation Name Age of Onset Ovarian cancer Mother 30 Alcohol abuse Father Iris Garcia Diabetes Father Iris Garcia Retinopatthy, - on Insulin Prostate cancer Father Iris Gacria Migraines Sister Migraines Sister No Known Problems Brother No Known Problems Brother Colon cancer Maternal Grandmother Cancer Maternal Grandmother brain abdomen or colon breast Breast cancer Maternal Grandmother Heart disease Paternal Grandfather Cancer Paternal Grandfather esophagus Uterine cancer Neg Hx Drug abuse Father Iris Garcia Arthritis Father Iris Garcia Autoimmune disease Father Iris Garcia [4] Allergies Allergen Reactions Compazine [Prochlorperazine] Anxiety Metoclopramide Anxiety Other reaction(s): Other: See Comments Anxiety attack documented in this encounter [facility] 04-30-2025 Note BARIATRIC AND METABO LIC SURGERY [facility] INITIAL EVALUATION - HISTORY AND PHYSICAL 04/30/25 PATIENT: Hemant Garcia DATE OF : 1990 ----- HISTORY OF PRESENT ILLNESS Chief Complaint: Morbid Obesity and associated comorbid conditions. Hemant Garcia is a 34 y.o. female with morbid obesity and associated comorbid conditions who [facility] for bariatric surgery. No gerd LOST 40lbs on her own but now stalled 45 min of exercise The patient stands Height: 5' 7.75 (172.1 cm) tall with a weight of Weight: (!) 303 lb 9.6 oz (138 kg) , and has a BMI of Body mass index is 46.5 kg/m?.. The patient has failed multiple attempts at non-surgical weight loss, and is now seeking surgical intervention to promote permanent and consistent weight loss. The patient suffers from multiple co-morbidities as a result of morbid obesity as outlined in the past medical history. The patient denies a history of myocardia infarction, deep vein thrombosis, pulmonary embolism, renal failure, hepatic failure, stroke, and seizure. She does smoke, and does not drink alcohol. Review of Systems Constitutional: Positive for activity change. HENT: Negative. Eyes: Negative. Respiratory: Negative. Cardiovascular: Negative. Gastrointestinal: Negative. Endocrine: Negative. Genitourinary: Negative. Musculoskeletal: Positive for arthralgias and back pain. Neurological: Negative. Hematological: Negative. Psychiatric/Behavioral: Negative. PAST HISTORIES Medical History[1] Surgical History[2] Family History[3] Social History Tobacco Use Smoking status: Every Day Current packs/day: 0.00 Average packs/day: 0.3 packs/day for 15.0 years (3.8 ttl pk-yrs) Types: Cigarettes Start date: 2004 Last attempt to quit: 04/13/2019 Years since quittin.0 Smokeless tobacco: Never Tobacco comments: Quit smokin black and milds a week - vaped THC in the past Substance Use Topics Alcohol use: Never Patient's Medications New Prescriptions No medications on file Previous Medications ALBUTEROL 108 (90 BASE) MCG/ACT INHALER Inhale 2 puffs every 6 hours as needed for wheezing. AMITRIPTYLINE (ELAVIL) 50 MG TABLET Take 1 tablet (50 mg) by mouth daily with supper. Do not start before October 03, 2024. CONTINUOUS GLUCOSE SENSOR ([employer] X-rad TechnologySTYLE LEILANI 3 PLUS SENSOR) MISC 1 each every 14 (fourteen) days. DULAGLUTIDE (TRULICITY) 0.75 MG/0.5ML Inject 0.75 mg under the skin 1 (one) time per week. SUMATRIPTAN (IMITREX) 100 MG TABLET Take 1 tablet (100 mg) by mouth Once as needed for migraine for up to 1 dose. May repeat dose once in 2 hours if no relief. Do not exceed 2 doses in 24 hours. Modified Medications No medications on file Discontinued Medications No medications on file Allergies[4] PHYSICAL EXAM BP 129/81 Pulse 76 Temp 36.6 ?C (97.9 ?F) Resp 16 Ht 5' 7.75 (1.721 m) Wt (!) 303 lb 9.6 oz (138 kg) BMI 46.50 kg/m? General: This patient is awake, alert, and oriented, with normal affect and is in no apparent distress. Cardiac: Regular rate, no murmur Respiratory: No Labored breathing, lungs clear to auscultation Abdomen: Obese, soft, non-tender, non-distended without masses/ No evidence of abdominal hernia / Incisions consistent with previous surgeries. Head and Neck: Obese, normocephalic and atraumatic/soft and supple, no lymphadenopathy or obvious bruits. Extremities: No cyanosis, clubbing or edema/ No calf tenderness/No restrictions of movement, is ambulatory without assistance. Neurological: Intact x 4 extremities, normal sensation, no focal deficits notes. Skin: Skin cool, warm and dry. No rashes or lesions noted. Rectal: Deferred LABORATORY STUDIES Laboratory Studies: No results for input(s): NA, K, CL, CO2, BUN, CREATININE, GLUCOSE, CALCIUM in the last 72 hours. No results for input(s): WBC, RBC, HGB, HCT, MCV, MCH, MCHC, RDW, PLT, MPV in the last 72 hours. No results for input(s): ALKPHOS, ALT, AST, PROT, BILITOT, BILIDIR, LIPASE in the last 72 hours. No lab exists for component: LABALBU ASSESSMENT Based on today's evaluation, the patient is a candidate for Laparoscopic Sleeve Gastrectomy. She chose Laparoscopic Sleeve Gastrectomy. In anticipation of weight reductive surgery now or in the future, we spent a great deal of time discussing the risks and benefits of , including but not limited to injury to intra-abdominal organs, breakdown of the gastric staple line, the need for re-operative therapy, prolonged hospitalization, mechanical ventilation, and . We discussed the possibility of bleeding, the need for blood transfusions, blood clots, hospital-acquired and intra-abdominal infection, anastomotic stri (more content not included)... [facility] 04-18-2025 Note Addended by: MT SOUTH on: 04/18/2025 11:55 AM Modules accepted: Orders [facility] 04-18-2025 Telephone encounter Note Thank you for the update. Ozempic removed from medication list and prescription sent for [facility]. [facility] 04-18-2025 Miscellaneous Notes Addended by: MT SOUTH on: 04/18/2025 11:55 AM Modules accepted: Orders Thank you for the update. Ozempic removed from medication list and prescription sent for Trulicity. PA was denied, patient notified and wants to try Trulicity if we can get it covered through insurance if not then she wants to try Adipex route again. Patient did state her insurance would be changing soon and will no longer be on Medicaid. PA denial will be scanned into patients chart with denial reasons provided. Denial put on providers desk for review. documented in this encounter [facility] 04-17-2025 Telephone encounter Note PA was denied, patient notified and wants to try Trulicity if we can get it covered through insurance if not then she wants to try Adipex route again. Patient did state her insurance would be changing soon and will no longer be on Medicaid. PA denial will be scanned into patients chart with denial reasons provided. Denial put on providers desk for review. [facility] 04-04-2025 History of Presen t illness Narrative Images from the original note were not included. [address] [id number] Hemant Garcia is a 34 y.o. female who presents for Weight Check (Adipex //Waist- 54.25 in ) Assessment/Plan 1. Type 2 diabetes mellitus with morbid obesity (E11.69, E66.01) - chronic, improving - Patient reports average blood sugar of 123 - A1C from February 2023 was 6.1% - Discussed weight loss options including injectable medications and weight loss surgery - Referred patient to weight management team for surgical consultation 2. Morbid obesity with BMI of 45.0-49.9, adult (E66.01, Z68.42) - chronic, worsening - Current weight 316 pounds, 4-pound gain since last visit on March 14 - Discussed discontinuing Adipex due to lack of efficacy - Prescribed Ozempic 0.25 mg subcutaneously once weekly as a new weight loss medication - Encouraged continuation of exercise routine - Referred to weight management team for surgical consultation Hemant was seen today for weight check. Diagnoses and all orders for this visit: Type 2 diabetes mellitus with morbid obesity (HCC) (Primary) - semaglutide (Ozempic) 2 MG/3ML solution pen-injector; Inject 0.25 mg under the skin 1 (one) time per week. Morbid obesity with BMI of 45.0-49.9, adult (HCC) - semaglutide (Ozempic) 2 MG/3ML solution pen-injector; Inject 0.25 mg under the skin 1 (one) time per week. - [employer] [facility]-Surgical Wt Mgmt Program; Future Follow up in about 4 weeks (around 05/02/2025) for weight management/waist circumference. Subjective History of Present Illness Hemant Garcia, a 34-year-old female, presents for a weight check follow-up. She reports a weight gain of 4 pounds since her last visit on March 14. The patient mentions her family ordered pizza twice recently, which may have contributed to the weight gain. She states she has been exercising, including walking 3.5 miles yesterday and spending two hours at the gym. At the gym, she performed various exercises including ab work, stair climbing, using a stationary bike, and shoulder exercises. Regarding her diabetes management, the patient states her average blood sugar is 123 currently. Her most recent hemoglobin A1c was 6.1% on 02/28/2025, which is down from 8.2% on 12/06/2024. She expresses interest in weight loss options, including injectable medications and weight loss surgery. The patient mentions having a friend who lost 120 pounds, describing it as life-changing. She also reports feeling great over the last couple of weeks. I obtained verbal consent from the patient and/or patient's guardian to use ambient listening technology during this encounter before the ambient technology was engaged. Review of Systems Respiratory: Negative for chest tightness and shortness of breath. Cardiovascular: Negative for chest pain. Objective BP 128/81 Pulse 97 Ht 5' 8 (1.727 m) Wt (!) 316 lb 12.8 oz (144 kg) SpO2 98% BMI 48.17 kg/m Waist Circumference: 54.25 inches Physical Exam Constitutional: General: She is not in acute distress. Appearance: She is obese. She is not ill-appearing or diaphoretic. Cardiovascular: Rate and Rhythm: Normal rate and regular rhythm. Heart sounds: Normal heart sounds. No murmur heard. No friction rub. Pulmonary: Effort: Pulmonary effort is normal. Skin: General: Skin is warm and dry. Coloration: Skin is not pale. Findings: No erythema or rash. Neurological: Mental Status: She is alert and oriented to person, place, and time. Psychiatric: Mood and Affect: Mood normal. Behavior: Behavior normal. Thought Content: Thought content normal. Judgment: Judgment normal. Results Weight: 316 pounds documented in this encounter [facility] 04-04-2025 History of Presen t illness Narrative Images from the original note were not included. [address] [address] Hemant Garcia is a 34 y.o. female who presents for Weight Check (Adipex //Waist- 54.25 in ) Assessment/Plan 1. Type 2 diabetes mellitus with morbid obesity (E11.69, E66.01) - chronic, improving - Patient reports average blood sugar of 123 - A1C from February 2023 was 6.1%, goal of less than 7% - Discussed weight loss options including injectable medications and weight loss surgery - Referred patient to weight management team for surgical consultation 2. Morbid obesity with BMI of 45.0-49.9, adult (E66.01, Z68.42) - chronic, worsening - Current weight 316 pounds, 4-pound gain since last visit on March 14 - Discussed discontinuing Adipex due to lack of efficacy - Prescribed Ozempic 0.25 mg subcutaneously once weekly as a new weight loss medication - Encouraged continuation of exercise routine - Referred to weight management team for surgical consultation Hemant was seen today for weight check. Diagnoses and all orders for this visit: Type 2 diabetes mellitus with morbid obesity (HCC) (Primary) - semaglutide (Ozempic) 2 MG/3ML solution pen-injector; Inject 0.25 mg under the skin 1 (one) time per week. Morbid obesity with BMI of 45.0-49.9, adult (HCC) - semaglutide (Ozempic) 2 MG/3ML solution pen-injector; Inject 0.25 mg under the skin 1 (one) time per week. - [facility]-Surgical Wt Mgmt Program; Future Follow up in about 4 weeks (around 05/02/2025) for weight management/waist circumference. Subjective History of Present Illness Hemant Garcia, a 34-year-old female, presents for a weight check follow-up. She reports a weight gain of 4 pounds since her last visit on March 14. The patient mentions her family ordered pizza twice recently, which may have contributed to the weight gain. She states she has been exercising, including walking 3.5 miles yesterday and spending two hours at the gym. At the gym, she performed various exercises including ab work, stair climbing, using a stationary bike, and shoulder exercises. Regarding her diabetes management, the patient states her average blood sugar is 123 currently. Her most recent hemoglobin A1c was 6.1% on 02/28/2025, which is down from 8.2% on 12/06/2024. She expresses interest in weight loss options, including injectable medications and weight loss surgery. The patient mentions having a friend who lost 120 pounds, describing it as life-changing. She also reports feeling great over the last couple of weeks. I obtained verbal consent from the patient and/or patient's guardian to use ambient listening technology during this encounter before the ambient technology was engaged. Review of Systems Respiratory: Negative for chest tightness and shortness of breath. Cardiovascular: Negative for chest pain. Objective BP 128/81 Pulse 97 Ht 5' 8 (1.727 m) Wt (!) 316 lb 12.8 oz (144 kg) SpO2 98% BMI 48.17 kg/m Waist Circumference: 54.25 inches Physical Exam Constitutional: General: She is not in acute distress. Appearance: She is obese. She is not ill-appearing or diaphoretic. Cardiovascular: Rate and Rhythm: Normal rate and regular rhythm. Heart sounds: Normal heart sounds. No murmur heard. No friction rub. Pulmonary: Effort: Pulmonary effort is normal. Skin: General: Skin is warm and dry. Coloration: Skin is not pale. Findings: No erythema or rash. Neurological: Mental Status: She is alert and oriented to person, place, and time. Psychiatric: Mood and Affect: Mood normal. Behavior: Behavior normal. Thought Content: Thought content normal. Judgment: Judgment normal. Results Weight: 316 pounds documented in this encounter [facility] 03-14-2025 History of Presen t illness Narrative Images from the original note were not included. 03/14/2025 Hemant Garcia (: 1990) is a 34 y.o. female , Established patient, here for evaluation of the following chief complaint(s): Follow-up (Weight Management) I obtained verbal consent from the patient and/or patient s guardian to use ambient listening technology during this encounter before the ambient technology was engaged. Patient was identified and seen today via Telehealth by agreement and consent. I used the following Telehealth technology: Audio and video capabilities. Patient location: Patient Location: Home. This patient encounter is appropriate and reasonable under the circumstances: patient preference . The patient has been advised of the potential risks and limitations of this mode of treatment (including but not limited to the absence of in-person examination) and has agreed to be treated in a remote fashion in spite of them. Any and all of the patient's/patient's family's questions on this issue have been answered and I have made no promises or guarantees to the patient. The patient has also been advised to contact this office for worsening conditions or problems, and seek emergency medical treatment and/or call 911 if the patient deems either necessary. The patient stated that they are currently in the state [facility]. If the patient is a minor, permission has been obtained by the parent or guardian for the patient to receive medical care at this visit. Assessment/Plan 1. Morbid obesity with BMI of 45.0-49.9, adult (HCC) (E66.01, Z68.42) - chronic, improving - Patient reports noticeable weight loss, dropping from 4X to 3X size - Last recorded weight was 314 pounds on February 28 - Continue Adipex for weight management - Scheduled weight check today at 2:30 PM- weight was 312.6lb - Will consider continuing Adipex for a third month if weight loss continues- refill sent - OARRS report reviewed with no discrepancies. CSA signed January 2025. - Follow-up appointment scheduled for April 04 at 2 PM to reassess weight loss progress and medication efficacy - If weight plateaus, will consider tapering off medication or switching to a different option - Encouraged to continue current exercise routine of walking I performed the above service AI scribed on my behalf, and I have reviewed and confirmed the accuracy and completeness of the medical documentation. Follow up in 3 weeks (on 04/04/2025) for Next scheduled follow-up. Subjective History of Present Illness Hemant Garcia, a 34-year-old female, presents for follow-up for weight management. She has been on Atipex for two months. The patient reports noticeable weight loss, stating she can definitely tell in my pants and believes she has dropped from a 4X to a 3X size. She continues to walk for exercise. Regarding her eating habits, she reports no changes since the last visit at the end of last month. Initially, she experienced headaches with the medication but feels she has managed them now. The patient denies any chest pain or shortness of breath. She mentions seeing a dentist and reports having pocketing in her teeth, which the dentist attributed to either smoking or diabetes. She states she needs to get scaling done, with pockets in the back four or five teeth and in the front. I obtained verbal consent from the patient and/or patient's guardian to use ambient listening technology during this encounter before the ambient technology was engaged. Review of Systems Respiratory: Negative for chest tightness and shortness of breath. Cardiovascular: Negative for chest pain. Objective Vitals: 03/14/25 1429 Weight: (!) 312 lb 9.6 oz (142 kg) Body mass index is 47.53 kg/m . Physical Exam Constitutional: General: She is not in acute distress. Appearance: She is not ill-appearing. HENT: Head: Normocephalic and atraumatic. Pulmonary: Effort: Pulmonary effort is normal. Comments: Speaking in full sentences. Skin: Coloration: Skin is not pale. Findings: No erythema or rash. Neurological: Mental Status: She is alert and oriented to person, place, and time. Psychiatric: Mood and Affect: Mood normal. Behavior: Behavior normal. Thought Content: Thought content normal. Judgment: Judgment normal. Data Reviewed Results An electronic signature was used to authenticate this note. VIKI Torres CNP 03/14/2025 2:29 PM documented in this encounter [facility] 02-28-2025 History of Presen t illness Narrative Images from the original note were not included. 02/28/2025 Hemant Garcia (: 1990) is a 34 y.o. female , Established patient, here for evaluation of the following chief complaint(s): Diabetes, Weight Check (Waist - 56.5in), and Health Maintenance (Pap- agree/Dental - refused/Eye - refused/COVID - refused/Hep C - refused/HIV - refused/PNA - refused/Hep B - refused/) I obtained verbal consent from the patient and/or patient s guardian to use ambient listening technology during this encounter before the ambient technology was engaged. Assessment/Plan 1. Type 2 diabetes mellitus with morbid obesity (E11.69) - chronic, improving - A1C significantly improved from 8.2% to 6.1% in 3 months - Patient reports blood sugar fluctuations, with occasional hypoglycemic episodes (50 mg/dL) - Advised on importance of regular, small meals with adequate protein and carbohydrates to prevent hypoglycemia - Recommended considering sugar-free protein powder as a supplement - Continue current management without medication - Encouraged to maintain current diet and exercise regimen 2. Morbid obesity with BMI of 45.0-49.9, adult (E66.01) - chronic, improving - Patient has lost 6 pounds since last visit - Continue Adipex (started January 10) - Virtual visit scheduled for March 14 at 1:40 PM for medication refill - Patient to have weight check on March 13 prior to virtual visit 3. Vaginal bleeding (N93.9) - acute, resolved - Patient reports recent ER visit for heavy vaginal bleeding - Referral placed to Dr. Huber ([facility]) for follow-up and Pap smear - Patient to re-establish care with [facility] due to 5-year lapse in visits 4. Pap smear of cervix with ASCUS, cannot exclude HGSIL (R87.611) - chronic, status unknown - History of atypical cells on previous Pap smear - [facility] referral placed for follow-up and new Pap smear I performed the above service AI scribed on my behalf, and I have reviewed and confirmed the accuracy and completeness of the medical documentation. Follow up in 13 days (on 03/13/2025) for nurse visit for weight. Subjective History of Present Illness Hemant Garcia, a 34-year-old female, presents for follow-up on diabetes and weight management. Diabetes Mellitus Type II: Most recent hemoglobin A1c was 8.2% on 12/06/24. Known diabetic complications: none Cardiovascular risk factors: diabetes mellitus and obesity (BMI >= 30 kg/m2)-she was started on Adipex about 1 month ago for weight management and she is down 6 pounds today from her previous appointment. States the Adipex helps to suppress her appetite and would like to continue taking it. Current diabetic medications include: None. It was recommended she take metformin, however, she declined stating she helped to reduce her hemoglobin A1c via lifestyle modifications instead. Eye exam current (within one year): no- reminded to schedule Dental exam current (within one year): no- reminded to schedule Weight trend: down 6 pounds over the past month Current diet: in general, a healthy diet Current exercise: walking Current monitoring regimen: uses [employer] Home blood sugar records: 130-200 Any episodes of hypoglycemia? Down to the 50's once a week- comes up with eating Is She on LUCINA inhibitor or angiotensin II receptor sona? No - declines Currently on statin therapy? No. Cholesterol levels were stable when checked on 12/04/2024. Component Ref Range & Units 2 mo ago CHOLESTEROL, TOTAL <200 mg/dL 140 HDL CHOLESTEROL > OR = 50 mg/dL 26 Low TRIGLYCERIDES <150 mg/dL 155 High LDL-CHOLESTEROL mg/dL (calc) 89 CHOL/HDLC RATIO <5.0 (calc) 5.4 High NON HDL CHOLESTEROL <130 mg/dL (calc) 114 Last urine microalbumin was 2 mg/L on 01/10/25. Last foot exam was 01/10/25. Was seen in the emergency room on 02/01/2025 due to vaginal bleeding. States she was filling three super tampons. She mentions it occurred the day before her wedding. Had a ultrasound of her pelvis completed that was negative for acute findings. There were no adnexal masses or significant free pelvic fluid. Has seen Dr. Huber in the past for her well female exams but it has been over 5 years and she would like a referral to see them again. States symptoms have resolved and did not recur since her ER visit. Health Maintenance: Sees Dr. Huber for her WFE but has not seen him in about 5 years- would like a referral today. Has a history of Pap with atypical cells. Tdap current: 04/25/15. Declines to be vaccinated for COVID-19. Declines screening for HIV and Hep C. Declines a pneumococcal vaccination. Declines to be vaccinated for Hep B. Review of Systems Constitutional: Negative for chills and fever. Respiratory: Negative for shortness of breath. Cardiovascular: Negative for chest pain. Gastrointestinal: Negative for abdominal distention and abdominal pain. Genitourinary: Negative for pelvic pain. Skin: Negative for color change, pallor, rash and wound. Neurological: Negative for dizziness, syncope, weakness and headaches. Objective Vitals: 02/28/25 1445 BP: 119/74 Pulse: 97 SpO2: 98% Weight: (!) 314 lb (142 kg) Height: 5' 8 (1.727 m) Body mass index is 47.74 kg/m . Waist Circumference: 56.5 inches Physical Exam Constitutional: General: She is not in acute distress. Appearance: She is obese. She is not ill-appearing or diaphoretic. Cardiovascular: Rate and Rhythm: Normal rate and regular rhythm. Heart sounds: Normal heart sounds. No murmur heard. No friction rub. Pulmonary: Effort: Pulmonary effort is normal. Breath sounds: Normal breath sounds. No wheezing, rhonchi or rales. Abdominal: General: Abdomen is protuberant. Bowel sounds are normal. Palpations: Abdomen is soft. There is no mass. Tenderness: There is no abdominal tenderness. There is no guarding or rebound. Musculoskeletal: Right lower leg: No edema. Left lower leg: No edema. Skin: General: Skin is warm and dry. Coloration: Skin is not pale. Findings: No erythema or rash. Neurological: Mental Status: She is alert and oriented to person, place, and time. Psychiatric: Mood and Affect: Mood normal. Behavior: Behavior normal. Thought Content: Thought content normal. Judgment: Judgment normal. Data Reviewed Results - A1C: 6.1% (down from 8.2% in November) - Weight: 6 pounds lost since last visit An electronic signature was used to authenticate this note. VIKI Torres CNP 02/28/2025 3:12 PM documented in this encounter [facility] 02-12-2025 Telephone encounter Note Reviewed chart. Refill appropriate. RX sent. [facility] 02-12-2025 Miscellaneous Notes Reviewed chart. Refill appropriate. RX sent. [facility] Adipex 01/10/25 Medication name: phentermine (Adipex-P) 37.5 MG tablet Medication dosage: 37.5 mg (Miligrams Monthly quantity needed: 30 How many day supply requestin days Medication route: oral (PO) Medication administration time(s): daily If taking medication PRN, reason for taking medication: N/A If this is a controlled substance do you receive this or any other controlled medication from any other doctor or facility: N/A Ordering provider: [facility] Date of last office visit: 01/10/25 Date of next office visit: 02/28/25 Date of last refill: (see medication tab): 01/10/25 Updated/Validated preferred pharmacy: Yes Patient instructed to contact the pharmacy prior to picking up the medication: Yes documented in this encounter [facility] 02-12-2025 Telephone encounter Note [facility] Adipex 01/10/25 [facility] 02-12-2025 Telephone encounter Note Medication name: phentermine (Adipex-P) 37.5 MG tablet Medication dosage: 37.5 mg (Miligrams Monthly quantity needed: 30 How many day supply requestin days Medication route: oral (PO) Medication administration time(s): daily If taking medication PRN, reason for taking medication: N/A If this is a controlled substance do you receive this or any other controlled medication from any other doctor or facility: N/A Ordering provider: [facility] Date of last office visit: 01/10/25 Date of next office visit: 02/28/25 Date of last refill: (see medication tab): 01/10/25 Updated/Validated preferred pharmacy: Yes Patient instructed to contact the pharmacy prior to picking up the medication: Yes [facility] 02-01-2025 Hospital Discharg e instructions Stormy Ken DO - 02/01/2025 6:42 PM EDT Take the iron and the Senokot as prescribed. Iron can make you constipated and so the Senokot will help with the constipation. It is a gentle laxative. Continue taking ibuprofen 800 mg every 8 hours as needed for pain at home. Schedule appointment with your [facility] for further evaluation of your vaginal bleeding. The following attachments cannot be sent through Care Everywhere.Heavy Periods Discharge Instructions (Slovak)documented in this encounter [facility] 02-01-2025 Emergency department Note EMERGENCY DEPARTMENT ENCOUNTER Pt Name: Hemant Garcia Birthdate 1990 Date of evaluation: 02/01/2025 ED Provider: Stormy Ken DO CHIEF COMPLAINT Chief Complaint Patient presents with Vaginal Bleeding HISTORY OF PRESENT ILLNESS (Location/Symptom, Timing/Onset, Context/Setting, Quality, Duration, Modifying Factors, Severity) Note limiting factors. I wore appropriate PPE for the entirety of this encounter. HPI Hemant Garcia is a 34 y.o. who presents to the emergency department with chief complaint of with heavy vaginal bleeding for the last 4 days. Patient states that her last period was 2 months ago. Started having another period 4 days ago and states that this period is very heavy with passage of large clots. Will soak through a tampon in 20 minutes. Is also using a pad as well. Does have some pelvic cramping worse on the right-hand side. History of salpingectomy on the side in the past. Patient feels lightheaded but no nausea or vomiting. No dysuria urinary frequency or urgency. Nursing Notes were reviewed. Limitations to history: None Outside historians: None REVIEW OF SYSTEMS Review of Systems Pertinent positives and negatives as per HPI. PAST MEDICAL HISTORY Medical History[1] SURGICAL HISTORY Surgical History[2] CURRENT MEDICATIONS Previous Medications ALBUTEROL 108 (90 BASE) MCG/ACT INHALER Inhale 2 puffs every 6 hours as needed for wheezing. AMITRIPTYLINE (ELAVIL) 50 MG TABLET Take 1 tablet (50 mg) by mouth daily with supper. Do not start before October 03, 2024. CONTINUOUS GLUCOSE SENSOR (FREESTYLE LEILANI 3 PLUS SENSOR) MISC 1 each every 14 (fourteen) days. PHENTERMINE (ADIPEX-P) 37.5 MG TABLET Take 1 tablet (37.5 mg) by mouth every morning (before breakfast). SUMATRIPTAN (IMITREX) 100 MG TABLET Take 1 tablet (100 mg) by mouth Once as needed for migraine for up to 1 dose. May repeat dose once in 2 hours if no relief. Do not exceed 2 doses in 24 hours. ALLERGIES Compazine [prochlorperazine] and Metoclopramide FAMILY HISTORY Family History[3] SOCIAL HISTORY Social History[4] SCREENINGS PHYSICAL EXAM ED Triage Vitals [02/01/25 1714] Temp Heart Rate Resp BP 36.7 C (98 F) 95 18 131/88 SpO2 Temp Source Heart Rate Source Patient Position 99 % Temporal Monitor Sitting BP Location FiO2 (%) Right arm -- Physical Exam Constitutional: Well-developed and well-nourished. No distress. HENT: Mucous membranes moist Cardiovascular: Regular rate and rhythm. No abnormal heart sounds heard. Pulmonary/Chest: Effort normal with no conversational dyspnea. Clear to auscultation bilaterally. Abdominal: Soft. No tenderness. No distension or guarding. No CVA tenderness bilaterally Genitourinary: Deferred Musculoskeletal: Normal range of motion Neuro: No focal deficit Skin: Skin is warm and dry. Psychiatric: Normal mood and affect. DIAGNOSTIC RESULTS Procedures/EKG: EKG was reviewed by myself. [facility] RAD[facility]OLOGY (Per Emergency Physician): Interpretation per the Radiologist below, if available at the time of this note: US pelvis transvaginal Final Result 1. No acute findings. Report Dictated on Electronically Signed By: Justyn Flor MD Electronically Signed Date/Time: 02/01/2025 6:14 PM EDT ED BEDSIDE ULTRASOUND: Performed by ED Physician - none LABS: Labs Reviewed CBC WITH AUTO DIFFERENTIAL - Abnormal Result Value Auto WBC 8.7 RBC 4.77 Hemoglobin 12.7 Hematocrit 37.5 MCV 78.6 MCH 26.6 MCHC 33.9 RDW 13.2 Platelets 250 MPV 10.0 nRBC 0.0 Neutrophils Relative 71.0 Lymphocytes Relative 22.0 Monocytes Relative 4.4 (*) Eosinophils Relative 1.9 Basophils Relative 0.5 Immature Grans % 0.2 Neutrophils Absolute 6.2 Lymphocytes Absolute 1.9 Monocytes Absolute 0.4 Eosinophils Absolute 0.2 Basophils Absolute 0.0 Immature Grans Absolute 0.0 BASIC METABOLIC PANEL - Abnormal SODIUM 141 POTASSIUM 3.4 (*) CHLORIDE 107 CARBON DIOXIDE 25 UREA NITROGEN 10 CREATININE 1.03 GLUCOSE 107 (*) CALCIUM 9.1 ANION GAP 9 eGFR 74.2 HCG QUANTITATIVE BLOOD HCG QUANTITATIVE <2.5 Narrative: Values in should double every 2 to 3 days for the first 6 weeks. Elevated concentrations of human chorionic gonadotropin (hCG) measured in the first trimester of are observed in normal , but may serve as an indication of chorionic carcinoma, hydatiform mole, or multiple . Decreasing hCG concentrations indicate threatened or missed , recent termination of , ectopic , gestosis or intrauterine . Erica- and postmenopausal females may have detectable hCG concentrations (< or = to 14 mIU/mL) due to pituitary production of hCG. Serum follicle-stimulating hormone measurement may aid in ruling-out in this population. Cutoffs of greater than 20 to 45 mIU/mL have been suggested and are method dependent. False-elevations (called phantom human chorionic gonadotropin: hCG) may occur with patients who have human antianimal or heterophilic antibodies. Some specimens may not dilute linearly due to abnormal forms of hCG. Elevated hCG concentrations not associated with are found in patients with other diseases such as tumors of the germ cells, ovaries, bladder, pancreas, stomach, lungs, and liver. This test is not intended to detect or monitor tumors or gestational trophoblastic disease. BLOOD TYPE AND SCREEN GEL ABO Grouping O Antibody Screen NEG Rh Type POS All other labs were within normal range or not returned as of this dictation. EMERGENCY DEPARTMENT COURSE and DIFFERENTIAL DIAGNOSIS/MDM: Vitals: Vitals: 02/01/25 1714 BP: 131/88 BP Location: Right arm Patient Position: Sitting Pulse: 95 Resp: 18 Temp: 36.7 C (98 F) TempSrc: Temporal SpO2: 99% Weight: (!) 141 kg (310 lb) Height: 1.753 m (5' 9) 34-year-old female presenting with vaginal bleeding. Differential diagnosis includes critical anemia versus electrolyte abnormalities versus HEIDI versus dehydration versus versus ectopic versus fibroid. Labs imaging were obtained. Labs notable for mild hypokalemia at 3.4, otherwise grossly unremarkable. test negative. Hemoglobin 12.7 which is her baseline. Patient was given a liter of fluid with improvement in her symptoms. Also given Toradol for pain. Transvaginal ultrasound with normal ovaries, no evidence of ovarian torsion, no fibroids were noted. No ovarian cyst noted. Endometrial stripe within normal limits. Plan to discharge home to follow-up with [facility]. Patient was started on iron supplementation given the heavy bleeding. Strict return precautions were discussed and patient discharged in stable condition. Diagnoses as of 02/01/25 1842 Vaginal bleeding Medications sodium chloride 0.9 % bolus 1,000 mL (1,000 mL IntraVENous Incomplete 02/01/25 1739) ketorolac (Toradol) injection 30 mg (has no administration in time range) REVAL: CRITICAL CARE TIME CONSULTS: None PROCEDURES: Unless otherwise noted below, none Procedures Patients symptoms are consistent with sepsis, severe sepsis, or septic shock (If yes use .sepsiscoremeasure): FINAL IMPRESSION 1. Vaginal bleeding DISPOSITION Discharge 02/01/2025 06:28:02 PM PATIENT REFERRED TO: Choco Huber MD [id number] [facility] [phone] Schedule an appointment as soon as possible for a visit [facility] [address] [facility] [phone] Go to If symptoms worsen DISCHARGE MEDICATIONS: New Prescriptions FERROUS SULFATE 325 (65 FE) MG TABLET Take 1 tablet (325 mg) by mouth daily. SENNA (SENOKOT) 8.6 MG TABLET Take 1 tablet (8.6 mg) by mouth Nightly. (Comment: Please note this report has been produced using speech recognition software and may contain errors related to that system including errors in grammar, punctuation, and spelling, as well as words and phrases that may be inappropriate. If there are any questions or concerns please feel free to contact the dictating provider for clarification.) Stormy Ken DO (electronically signed) Emergency Medicine Provider [1] Past Medical History: Diagnosis Date Abnormal genetic test during 11/07/2018 11/07/18: Uni formative DNA pattern. Referral to [facility] Anxiety Celiac disease GI Exercise-induced asthma Family history of diabetes mellitus in father Family history of ovarian cancer Gestational hypertension 12/04/2024 Group B Streptococcus carrier state affecting 12/04/2024 History of kidney stones History of migraine 2004 MRI head neg, 10/03 CT head neg History of pneumonia 06/15/2018 History of pre-eclampsia in prior , currently in first trimester 10/05/2018 HRP (high risk ) 04/09/2019 Hyperglycemia 11/2024 Obesity in 10/05/2018 Obesity BMI > 40: The following protocols represent a collaboration with physician 1. Obtain 1-hour GCT early 2. Serial growth ultrasounds starting at 32 weeks 3. Weekly NST/AZEEM starting at 32 weeks; if no co morbidities weekly NST/AZEEM starting at 36 weeks 4. Delivery at 40 weeks if cervix is ripe Smoker [2] Past Surgical History: Procedure Laterality Date SECTION (HISTORICAL) 2019 SALPINGECTOMY Right 2019 benign cyst; still has left tube [3] Family History Problem Relation Name Age of Onset Ovarian cancer Mother 30 Alcohol abuse Father Iris Garcai Diabetes Father Iris Garcia Retinopatthy, - on Insulin Prostate cancer Father Iris Garcia Migraines Sister Migraines Sister No Known Problems Brother No Known Problems Brother Colon cancer Maternal Grandmother Cancer Maternal Grandmother brain abdomen or colon breast Breast cancer Maternal Grandmother Heart disease Paternal Grandfather Cancer Paternal Grandfather esophagus Uterine cancer Neg Hx [4] Social History Socioeconomic History Marital status: Significant Other Tobacco Use Smoking status: Every Day Current packs/day: 0.00 Types: Cigarettes Start date: 11/17/2003 Last attempt to quit: 04/13/2019 Years since quittin.8 Smokeless tobacco: Never Tobacco comments: Quit smokin black and milds a week - vaped THC in the past Vaping Use Vaping status: Never Used Substance and Sexual Activity Alcohol use: No Drug use: Yes Types: Marijuana Sexual activity: Defer Social History Narrative Single, engaged to Mick, SMOKER since age 16. no ETOH excess. Has 2 sons born in 2016 and 2019. Social Drivers of Health Financial Resource Strain: High Risk (04/27/2019) Received from [facility] Overall Financial Resource Strain (CARDIA) Difficulty of Paying Living Expenses: Hard Food Insecurity: Food Insecurity Present (04/27/2019) Received from [facility] Hunger Vital Sign Worried About Running Out of Food in the Last Year: Sometimes true Ran Out of Food in the Last Year: Never true Transportation Needs: No Transportation Needs (04/27/2019) Received from [facility] PRAPARE - Transportation Lack of Transportation (Medical): No Lack of Transportation (Non-Medical): No Physical Activity: Insufficiently Active (04/27/2019) Received from [facility] Exercise Vital Sign Days of Exercise per Week: 3 days Minutes of Exercise per Session: 30 min Stress: Stress Concern Present (04/27/2019) Received from [facility] [place] [place] [facility] [employer] [facility] - Occupational Stress Questionnaire Feeling of Stress : To some extent Social Connections: Moderately Isolated (04/27/2019) Received from [facility] Social Connection and Isolation Panel [NHANES] Frequency of Communication with Friends and Family: Twice a week Frequency of Social Gatherings with Friends and Family: Once a week Attends Protestant Services: Never Active Member of Clubs or Organizations: No Attends Club or Organization Meetings: Never Marital Status: Living with partner Stormy Ken DO 02/01/251845 Patient complains of heavy vaginal bleeding x 4 days and abdominal cramping and low back pain. LMP sometime in November. Patient had tubal ligation done approx 5 years ago. Patient is changing her pad every 20 minutes and is also wearing a tampon. Patient endorses lightheadedness. Patient states she has maxed out on tylenol, ibuprofen, imitrex, and midol trying to control the pain. documented in this encounter [facility] 02-01-2025 Emergency department Triage note Patient complains of heavy vaginal bleeding x 4 days and abdominal cramping and low back pain. LMP sometime in November. Patient had tubal ligation done approx 5 years ago. Patient is changing her pad every 20 minutes and is also wearing a tampon. Patient endorses lightheadedness. Patient states she has maxed out on tylenol, ibuprofen, imitrex, and midol trying to control the pain. [facility] 02-01-2025 Physician Emergency department Note EMERGENCY DEPARTMENT ENCOUNTER Pt Name: Hemant Garcia Birthdate 1990 Date of evaluation: 02/01/2025 ED Provider: Stormy Ken DO CHIEF COMPLAINT Chief Complaint Patient presents with Vaginal Bleeding HISTORY OF PRESENT ILLNESS (Location/Symptom, Timing/Onset, Context/Setting, Quality, Duration, Modifying Factors, Severity) Note limiting factors. I wore appropriate PPE for the entirety of this encounter. HPI Hemant Garcia is a 34 y.o. who presents to the emergency department with chief complaint of with heavy vaginal bleeding for the last 4 days. Patient states that her last period was 2 months ago. Started having another period 4 days ago and states that this period is very heavy with passage of large clots. Will soak through a tampon in 20 minutes. Is also using a pad as well. Does have some pelvic cramping worse on the right-hand side. History of salpingectomy on the side in the past. Patient feels lightheaded but no nausea or vomiting. No dysuria urinary frequency or urgency. Nursing Notes were reviewed. Limitations to history: None Outside historians: None REVIEW OF SYSTEMS Review of Systems Pertinent positives and negatives as per HPI. PAST MEDICAL HISTORY Medical History[1] SURGICAL HISTORY Surgical History[2] CURRENT MEDICATIONS Previous Medications ALBUTEROL 108 (90 BASE) MCG/ACT INHALER Inhale 2 puffs every 6 hours as needed for wheezing. AMITRIPTYLINE (ELAVIL) 50 MG TABLET Take 1 tablet (50 mg) by mouth daily with supper. Do not start before October 03, 2024. CONTINUOUS GLUCOSE SENSOR (FREESTYLE LEILANI 3 PLUS SENSOR) MISC 1 each every 14 (fourteen) days. PHENTERMINE (ADIPEX-P) 37.5 MG TABLET Take 1 tablet (37.5 mg) by mouth every morning (before breakfast). SUMATRIPTAN (IMITREX) 100 MG TABLET Take 1 tablet (100 mg) by mouth Once as needed for migraine for up to 1 dose. May repeat dose once in 2 hours if no relief. Do not exceed 2 doses in 24 hours. ALLERGIES Compazine [prochlorperazine] and Metoclopramide FAMILY HISTORY Family History[3] SOCIAL HISTORY Social History[4] SCREENINGS PHYSICAL EXAM ED Triage Vitals [02/01/25 1714] Temp Heart Rate Resp BP 36.7 C (98 F) 95 18 131/88 SpO2 Temp Source Heart Rate Source Patient Position 99 % Temporal Monitor Sitting BP Location FiO2 (%) Right arm -- Physical Exam Constitutional: Well-developed and well-nourished. No distress. HENT: Mucous membranes moist Cardiovascular: Regular rate and rhythm. No abnormal heart sounds heard. Pulmonary/Chest: Effort normal with no conversational dyspnea. Clear to auscultation bilaterally. Abdominal: Soft. No tenderness. No distension or guarding. No CVA tenderness bilaterally Genitourinary: Deferred Musculoskeletal: Normal range of motion Neuro: No focal deficit Skin: Skin is warm and dry. Psychiatric: Normal mood and affect. DIAGNOSTIC RESULTS Procedures/EKG: EKG was reviewed by myself. Physician EKG interpretation can be found in [facility] RADIOLOGY (Per Emergency Physician): Interpretation per the Radiologist below, if available at the time of this note: US pelvis transvaginal Final Result 1. No acute findings. Report Dictated on Electronically Signed By: Justyn Flor MD Electronically Signed Date/Time: 02/01/2025 6:14 PM EDT ED BEDSIDE ULTRASOUND: Performed by ED Physician - none LABS: Labs Reviewed CBC WITH AUTO DIFFERENTIAL - Abnormal Result Value Auto WBC 8.7 RBC 4.77 Hemoglobin 12.7 Hematocrit 37.5 MCV 78.6 MCH 26.6 MCHC 33.9 RDW 13.2 Platelets 250 MPV 10.0 nRBC 0.0 Neutrophils Relative 71.0 Lymphocytes Relative 22.0 Monocytes Relative 4.4 (*) Eosinophils Relative 1.9 Basophils Relative 0.5 Immature Grans % 0.2 Neutrophils Absolute 6.2 Lymphocytes Absolute 1.9 Monocytes Absolute 0.4 Eosinophils Absolute 0.2 Basophils Absolute 0.0 Immature Grans Absolute 0.0 BASIC METABOLIC PANEL - Abnormal SODIUM 141 POTASSIUM 3.4 (*) CHLORIDE 107 CARBON DIOXIDE 25 UREA NITROGEN 10 CREATININE 1.03 GLUCOSE 107 (*) CALCIUM 9.1 ANION GAP 9 eGFR 74.2 HCG QUANTITATIVE BLOOD HCG QUANTITATIVE <2.5 Narrative: Values in should double every 2 to 3 days for the first 6 weeks. Elevated concentrations of human chorionic gonadotropin (hCG) measured in the first trimester of are observed in normal , but may serve as an indication of chorionic carcinoma, hydatiform mole, or multiple . Decreasing hCG concentrations indicate threatened or missed , recent termination of , ectopic , gestosis or intrauterine . Erica- and postmenopausal females may have detectable hCG concentrations (< or = to 14 mIU/mL) due to pituitary production of hCG. Serum follicle-stimulating hormone measurement may aid in ruling-out in this population. Cutoffs of greater than 20 to 45 mIU/mL have been suggested and are method dependent. False-elevations (called phantom human chorionic gonadotropin: hCG) may occur with patients who have human antianimal or heterophilic antibodies. Some specimens may not dilute linearly due to abnormal forms of hCG. Elevated hCG concentrations not associated with are found in patients with other diseases such as tumors of the germ cells, ovaries, bladder, pancreas, stomach, lungs, and liver. This test is not intended to detect or monitor tumors or gestational trophoblastic disease. BLOOD TYPE AND SCREEN GEL ABO Grouping O Antibody Screen NEG Rh Type POS All other labs were within normal range or not returned as of this dictation. EMERGENCY DEPARTMENT COURSE and DIFFERENTIAL DIAGNOSIS/MDM: Vitals: Vitals: 02/01/25 1714 BP: 131/88 BP Location: Right arm Patient Position: Sitting Pulse: 95 Resp: 18 Temp: 36.7 C (98 F) TempSrc: Temporal SpO2: 99% Weight: (!) 141 kg (310 lb) Height: 1.753 m (5' 9) 34-year-old female presenting with vaginal bleeding. Differential diagnosis includes critical anemia versus electrolyte abnormalities versus HEIDI versus dehydration versus versus ectopic versus fibroid. Labs imaging were obtained. Labs notable for mild hypokalemia at 3.4, otherwise grossly unremarkable. test negative. Hemoglobin 12.7 which is her baseline. Patient was given a liter of fluid with improvement in her symptoms. Also given Toradol for pain. Transvaginal ultrasound with normal ovaries, no evidence of ovarian torsion, no fibroids were noted. No ovarian cyst noted. Endometrial stripe within normal limits. Plan to discharge home to follow-up with [facility]. Patient was started on iron supplementation given the heavy bleeding. Strict return precautions were discussed and patient discharged in stable condition. Diagnoses as of 02/01/25 1842 Vaginal bleeding Medications sodium chloride 0.9 % bolus 1,000 mL (1,000 mL IntraVENous Incomplete 02/01/25 1739) ketorolac (Toradol) injection 30 mg (has no administration in time range) REVAL: CRITICAL CARE TIME CONSULTS: None PROCEDURES: Unless otherwise noted below, none Procedures Patients symptoms are consistent with sepsis, severe sepsis, or septic shock (If yes use .sepsiscoremeasure): FINAL IMPRESSION 1. Vaginal bleeding DISPOSITION Discharge 02/01/2025 06:28:02 PM PATIENT REFERRED TO: Choco Huber MD [address] [facility] [phone] Schedule an appointment as soon as possible for a visit [facility] ED [address] [facility] [id number] Go to If symptoms worsen DISCHARGE MEDICATIONS: New Prescriptions FERROUS SULFATE 325 (65 FE) MG TABLET Take 1 tablet (325 mg) by mouth daily. SENNA (SENOKOT) 8.6 MG TABLET Take 1 tablet (8.6 mg) by mouth Nightly. (Comment: Please note this report has been produced using speech recognition software and may contain errors related to that system including errors in grammar, punctuation, and spelling, as well as words and phrases that may be inappropriate. If there are any questions or concerns please feel free to contact the dictating provider for clarification.) Stormy Ken DO (electronically signed) Emergency Medicine Provider [1] Past Medical History: Diagnosis Date Abnormal genetic test during 11/07/2018 11/07/18: Uni formative DNA pattern. Referral to [facility] Anxiety Celiac disease GI Exercise-induced asthma Family history of diabetes mellitus in father Family history of ovarian cancer Gestational hypertension 12/04/2024 Group B Streptococcus carrier state affecting 12/04/2024 History of kidney stones History of migraine 2004 MRI head neg, 10/03 CT head neg History of pneumonia 06/15/2018 History of pre-eclampsia in prior , currently in first trimester 10/05/2018 HRP (high risk ) 04/09/2019 Hyperglycemia 11/2024 Obesity in 10/05/2018 Obesity BMI > 40: The following protocols represent a collaboration with physician 1. Obtain 1-hour GCT early 2. Serial growth ultrasounds starting at 32 weeks 3. Weekly NST/AZEEM starting at 32 weeks; if no co morbidities weekly NST/AZEEM starting at 36 weeks 4. Delivery at 40 weeks if cervix is ripe Smoker [2] Past Surgical History: Procedure Laterality Date SECTION (HISTORICAL) 2019 SALPINGECTOMY Right 2019 benign cyst; still has left tube [3] Family History Problem Relation Name Age of Onset Ovarian cancer Mother 30 Alcohol abuse Father Iris Garcia Diabetes Father Iris Garcia Retinopatthy, - on Insulin Prostate cancer Father Iris Garcia Migraines Sister Migraines Sister No Known Problems Brother No Known Problems Brother Colon cancer Maternal Grandmother Cancer Maternal Grandmother brain abdomen or colon breast Breast cancer Maternal Grandmother Heart disease Paternal Grandfather Cancer Paternal Grandfather esophagus Uterine cancer Neg Hx [4] Social History Socioeconomic History Marital status: Significant Other Tobacco Use Smoking status: Every Day Current packs/day: 0.00 Types: Cigarettes Start date: 11/17/2003 Last attempt to quit: 04/13/2019 Years since quittin.8 Smokeless tobacco: Never Tobacco comments: Quit smokin black and milds a week - vaped THC in the past Vaping Use Vaping status: Never Used Substance and Sexual Activity Alcohol use: No Drug use: Yes Types: Marijuana Sexual activity: Defer Social History Narrative Single, engaged to Mick, SMOKER since age 16. no ETOH excess. Has 2 sons born in 2015 and 2018. Social Drivers of Health Financial Resource Strain: High Risk (04/27/2019) Received from [facility] Overall Financial Resource Strain (CARDIA) Difficulty of Paying Living Expenses: Hard Food Insecurity: Food Insecurity Present (04/27/2019) Received from [facility] Hunger Vital Sign Worried About Running Out of Food in the Last Year: Sometimes true Ran Out of Food in the Last Year: Never true Transportation Needs: No Transportation Needs (04/27/2019) Received from [facility] PRAPARE - Transportation Lack of Transportation (Medical): No Lack of Transportation (Non-Medical): No Physical Activity: Insufficiently Active (04/27/2019) Received from [facility] Exercise Vital Sign Days of Exercise per Week: 3 days Minutes of Exercise per Session: 30 min Stress: Stress Concern Present (04/27/2019) Received from [facility] [place] [place] [facility] [employer] - Occupational Stress Questionnaire Feeling of Stress : To some extent Social Connections: Moderately Isolated (04/27/2019) [facility] from [facility] Social Connection and Isolation Panel [NHANES] Frequency of Communication with Friends and Family: Twice a week Frequency of Social Gatherings with Friends and Family: Once a week Attends Protestant Services: Never Active Member of Clubs or Organizations: No Attends Club or Organization Meetings: Never Marital Status: Living with partner Stormy Ken DO 02/01/25 1846 [facility] [employer] 02-01-2025 Telephone encounter Note Noted. Agree with recommendation. [employer] Work Phone: 02-01-2025 Miscellaneous Notes Noted. Agree with recommendation. S: Patient called the clinical access center with complaint of severe menstrual bleeding and clots B: started about 4 days ago A: Pt complains of needing to change her pad every 20 min. She said she has been bleeding through a tampon and a pad today. She is feeling weak, but not too weak to stand. R: Pt advised to go to ER. She will go to [place] [facility]. She said Dr Huber is her OBGYN but she hasn't been to that office in at least 5 years. I told the patient she will be considered a new patient. She said she will call back after she is seen in ER to schedule a new patient visit. Reason for Disposition SEVERE abdominal pain (e.g., excruciating) Protocols used: Vaginal Bleeding - [id number] documented in this encounter [facility] 02-01-2025 Telephone encounter Note S: Patient called the clinical access center with complaint of severe menstrual bleeding and clots B: started about 4 days ago A: Pt complains of needing to change her pad every 20 min. She said she has been bleeding through a tampon and a pad today. She is feeling weak, but not too weak to stand. R: Pt advised to go to ER. She will go to [place] [facility]. She said Dr Huber is her OBGYN but she hasn't been to that office in at least 5 years. I told the patient she will be considered a new patient. She said she will call back after she is seen in ER to schedule a new patient visit. Reason for Disposition SEVERE abdominal pain (e.g., excruciating) Protocols used: Vaginal Bleeding - [id number] [facility] 01-10-2025 History of Presen t illness Narrative Patient verified by last name and . Images from the original note were not included. 01/10/2025 Hemant Garcia (: 1990) is a 34 y.o. female , Established patient, here for evaluation of the following chief complaint(s): Follow-up, Diabetes, Health Maintenance (Dm eye- not done /Dm dental- not done ), and Blood Work I obtained verbal consent from the patient and/or patient s guardian to use ambient listening technology during this encounter before the ambient technology was engaged. Assessment/Plan 1. Type 2 diabetes mellitus with morbid obesity (HCC) - Microalbumin / creatinine urine ratio - Diabetes Foot Exam - Continuous Glucose Sensor (FreeStyle Leilani 3 Sensor) misc; 1 each every 14 (fourteen) days., Starting 01/10/2025, Normal - Chronic, newly diagnosed - A1C 8.2% - Declines taking metformin stating she hopes to reduce her hemoglobin A1c via lifestyle modifications - Patient using Freestyle Leilani sensor for blood glucose monitoring - Discussed dietary modifications, focusing on low-carb options and avoiding white bread - Recommended regular meals to prevent hypoglycemic episodes - Advised on proper timing of meals and snacks, especially before exercise - Discussed importance of annual urine protein check and foot examinations - Ordered Freestyle Leilani 3 sensor - Follow up in 4 weeks for diabetes management and weight check - Plan to recheck A1C at next visit 2. Encounter for diabetic foot exam (HCC) - Diabetes Foot Exam 3. Encounter for diabetes education - See below for education notes from visit. 4. Morbid obesity with BMI of 45.0-49.9, adult ([facility]) - phentermine (Adipex-P) 37.5 MG tablet; Take 1 tablet (37.5 mg) by mouth every morning (before breakfast)., Starting Wed01/10/2025, Until Wed02/09/2025, Normal - Chronic, not at goal - Discussed dietary modifications and current exercise routine - Prescribed Adipex for weight loss - Provided patient with informational sheets on low-carb diet and carbohydrate counting - OARRS report reviewed with no discrepancies. CSA signed today. Follow up as scheduled. - Follow up in 4 weeks to assess progress 5. Elevated liver enzymes - Hepatic function panel - Acute, stable - Ordered repeat liver function tests today for follow up 6. Intractable migraine with aura without status migrainosus - SUMAtriptan (Imitrex) 100 MG tablet; Take 1 tablet (100 mg) by mouth Once as needed for migraine for up to 1 dose. May repeat dose once in 2 hours if no relief. Do not exceed 2 doses in 24 hours., Starting Wed01/10/2025, Normal - Chronic, unchanged and not at goal - Currently on amitriptyline 50mg daily and PRN Imitrex - Increased as-needed Imitrex from 50mg to 100mg - Advised to follow up with Dr. Concepcion (neurologist) for potential adjustments to amitriptyline regimen Diabetic Education Notes: Discussed, at length, a healthy diet low in carbohydrates and sugars as well as low in cholesterol and saturated fats. Educated on carbohydrate counting and healthy food choices. Dietary Education- Total carbohydrate intake 50-60% of total caloric intake. -Fats should be 25-30% of total calories. - Fiber should be 25g per 1000 calories - Protein should be 10-20% of total calories Encouraged to call the office if she has any questions/concerns with checking her blood sugar at home or if she has new questions that arise- verbalized understanding. Gave parameters for when checking blood sugars and when to notify the office. Gave informational booklet on carbohydrate counting and a booklet to record blood sugars in for review. Educated on exercise and the benefits of blood sugar control. Educated on good foot hygiene. Discussed signs and symptoms of hypoglycemia and hyperglycemia- verbalized understanding. Information provided in handouts/booklets and in AVS on diabetes, nutrition, and exercise for patient review. Goals set/reviewed together for diabetes management. On this date, 01/10/25, I have spent 40 minutes reviewing previous notes, test results, and face to face with the patient discussing the diagnosis and importance of compliance with the treatment plan as well as documenting on the day of the visit. I performed the above service AI scribed on my behalf, and I have reviewed and confirmed the accuracy and completeness of the medical documentation. Follow up in about 4 weeks (around 02/07/2025) for diabetes management and weight check. Subjective History of Present Illness Hemant Garcia, a 34-year-old female, presents for diabetes education following a recent diagnosis of diabetes with an A1C of 8.2% as well as multiple other health concerns including diabetes and abnormalities on recent blood work. She reports a significant family history of diabetes on her paternal side. Hemant has been tracking her blood sugar using a Freestyle Leilani sensor provided by her family. She notes occasional high readings of 220-250, but more frequently experiences low blood sugar episodes, with the lowest being 53. These low episodes typically occur around 4 or 5 in the afternoon, often when she has gone a while without eating, though sometimes they occur shortly after eating. Hemant reports her blood sugar is generally in the 180 range, with occasional spikes to 215 after eating. She describes her typical daily diet: breakfast consists of eggs and a piece of white bread. She often skips lunch and goes straight to dinner, which usually includes beef or chicken with a side. Late-night snacks with her may include nachos, homemade cheese dip, or au gratin potatoes. She drinks zero-sugar soda and water, with occasional sweet tea. Hemant reports trying to eat more raw fruits and vegetables and salads, mentioning a current preference for Chipotle salads. She states her caloric intake was around 1400 calories yesterday. For exercise, Hemant reports doing 45 minutes of stair climbing daily, which she started recently. She notes that her blood sugar tends to crash after working out, typically around 4:30-5:00 PM. Hemant mentions ongoing issues with migraines, which have been full force despite taking amitriptyline. She reports the as-needed Imitrex is not as effective as she had hoped, taking the edge off but not fully resolving the headaches. Has been following up with a neurologist for management of her migraines and was due for follow-up in November, however, she had to cancel that appointment it has not gotten it rescheduled. Is also interested in starting a medication for weight loss. Discussed starting a GLP 1 injection due to diabetes diagnosis and associated weight loss seen with these medications, however, she states she has read about too many potential side effects with this medication and is extremely hesitant to try this. Requesting to take Adipex for weight management. Patient medical history negative for arrhythmias, uncontrolled HTN, CHF, CAD, stroke, drug abuse, hyperthyroidism, glaucoma, and MAO therapy in the past 14 days. Patient is not currently and is not actively trying to conceive. Review of Systems Respiratory: Negative for shortness of breath. Cardiovascular: Negative for chest pain. Endocrine: Negative for polydipsia, polyphagia and polyuria. Skin: Negative for color change, pallor, rash and wound. Neurological: Positive for headaches. Objective Vitals: 01/10/25 1448 BP: 133/84 BP Location: Left arm Patient Position: Sitting Pulse: 68 SpO2: 98% Weight: (!) 320 lb 6.4 oz (145 kg) Height: 5' 8 (1.727 m) Body mass index is 48.72 kg/m . Physical Exam Constitutional: General: She is not in acute distress. Appearance: She is obese. She is not ill-appearing or diaphoretic. Cardiovascular: Rate and Rhythm: Normal rate and regular rhythm. Heart sounds: Normal heart sounds. No murmur heard. No friction rub. Pulmonary: Effort: Pulmonary effort is normal. Breath sounds: Normal breath sounds. No wheezing, rhonchi or rales. Skin: General: Skin is warm and dry. Coloration: Skin is not pale. Findings: No erythema or rash. Comments: Diabetic foot check: Normal strength and range of motion of toes, feet, and ankles bilaterally. No joint deformity. No cyanosis or clubbing. 100% sensation with 10 gram filament. Dorsalis pedis pulses intact bilaterally. Capillary refill at the toes was less than 2 seconds. Light touch sensation intact bilaterally. Hair growth present on feet and toes bilaterally. No skin breakdown, erythema, rub spots, blisters, scaling, or ulcers. No calluses or corns. Toenails thin and not ingrown. No evidence of fungal infection. Neurological: Mental Status: She is alert and oriented to person, place, and time. Psychiatric: Mood and Affect: Mood normal. Behavior: Behavior normal. Thought Content: Thought content normal. Judgment: Judgment normal. Data Reviewed Results A1C: 8.2% Liver enzymes: Slightly elevated (previous test) Cholesterol: Slightly high (previous test) An electronic signature was used to authenticate this note. VIKI Torres CNP 01/10/2025 4:01 PM documented in this encounter [facility] 12-04-2024 History of Presen t illness Narrative Patient verified by last name and date of . Images from the original note were not included. 12/04/2024 Hemant Garcia (: 1990) is a 34 y.o. female , Established patient, here for evaluation of the following chief complaint(s): New Patient (New to provider- pt is changing providers to us), Annual Exam (Patient states that she has no smell or taste for about 10 days. States that she is SOB with body aches States that she has some abdominal pain after eating. Would like to talk about weight loss. ), Blood Work, and Health Maintenance (Hiv/hep c screening-/Mmr vaccine-/Varicella vaccine-/Hep b vaccine-/Pcv 20 vaccine-/Pap-/Covid vaccine-) Assessment/Plan 1. Well adult exam - Encouraged a healthy diet low in cholesterol and saturated fats. - Encouraged regular exercise. 2. Encounter to establish care 3. Exercise-induced asthma - albuterol 108 (90 Base) MCG/ACT inhaler; Inhale 2 puffs every 6 hours as needed for wheezing., Starting 12/04/2024, Normal - Stable with PRN Albuterol. Will continue current treatment plan. 4. URI with cough and congestion - amoxicillin-clavulanate (Augmentin) 875-125 MG tablet; Take 1 tablet by mouth 2 times daily for 10 days., Starting 12/04/2024, Until Meliza 12/14/2024, Normal - albuterol 108 (90 Base) MCG/ACT inhaler; Inhale 2 puffs every 6 hours as needed for wheezing., Starting Wed12/04/2024, Normal - Saline nasal spray for congestion. - Encouraged increasing oral fluids to keep mucous secretions moist. - Encouraged tea with honey for throat discomfort and cough relief. - May use Tylenol/Motrin as needed for pain relief. - Sleep with humidified air. 5. Morbid obesity with BMI of 45.0-49.9, adult (HCC) - Comprehensive metabolic panel - TSH - CBC auto differential - Discussed potential medications for weight management, upper, will hold off on this today due to other current concerns and worries. Will do some blood work and imaging for follow-up on the abdominal pain and irregular menstrual cycles first. 6. Amenorrhea - Comprehensive metabolic panel - TSH - Estrogens, total - Follicle stimulating hormone - Luteinizing hormone - Prolactin - CBC auto differential - Will notify of blood work results. - Encouraged follow-up with [facility]. 7. RUQ abdominal pain - US abdomen complete - CBC auto differential - Comprehensive metabolic panel - Will obtain an ultrasound and blood work for further evaluation. 8. Nausea - CBC auto differential - Comprehensive metabolic panel - Will obtain an ultrasound and blood work for further evaluation. - Offered urine hCG in the office, but declined stating she just had a negative test 4 days ago at home and her has had a vasectomy. 9. Screening for diabetes mellitus - Comprehensive metabolic panel - Will notify of blood work results. 10. Screening for deficiency anemia - CBC auto differential - Will notify of blood work results. 11. Screening for lipoid disorders - Lipid panel - Will notify of blood work results. 12. Intractable migraine with aura without status migrainosus - Stable. Follow up with specialist as directed. 13. Inflammatory arthritis - Symptoms stable. 14. Celiac disease - Encouraged follow-up with gastroenterology. Follow up in about 3 weeks (around 12/25/2024) for follow up on obesity and stomach pain. Subjective History of Present Illness Madiha presents today to establish care and for her annual physical. Also has a list of current health concerns and worries she would like to discuss today while she is here. Previous PCP was Dr. Ortega. Does follow up with specialist: Dr. Concepcion (migraine management). Past Medical History Positive for: Migraines, RA, Celiac Disease (past due for follow up on gastroenterology), exercise induced asthma (managed via PRN Albuterol- needs a refill today). Has concerns regarding symptoms of an upper respiratory infection that she has been fighting for the past 10 days with no improvement. States she feels congestion in her sinuses with nasal drainage, a productive cough, and shortness of breath with wheezing. Denies known fevers. Has not tested for flu or COVID-19. Would also like to discuss frustrations with difficulty losing weight and irregular menstrual cycles. States she has not had a menstrual cycle for the past couple of months. States her has had a vasectomy and she took a home test that was -4 days ago. Used to follow-up with and [facility], Dr. Huber, but has not seen him in several years. Has also been experiencing right upper abdominal pain with associated nausea-especially with eating. Health Maintenance: Declines screening for HIV and hepatitis C. States she was vaccinated for measles mumps and rubella as a child. States she had chickenpox as a child. Uncertain if she has been vaccinated for hepatitis B-unable to find patient in [facility]. Declines a pneumococcal vaccination. Declines to be vaccinated for COVID-19. Tdap is current: 04/25/2015. Review of Systems Constitutional: Negative for chills and fever. HENT: Positive for congestion, rhinorrhea, sinus pressure and sinus pain. Negative for ear discharge, ear pain, hearing loss, sore throat and trouble swallowing. Eyes: Negative for pain and visual disturbance. Respiratory: Positive for cough, shortness of breath and wheezing. Cardiovascular: Negative for chest pain, palpitations and leg swelling. Gastrointestinal: Positive for abdominal pain (RUQ) and nausea. Negative for abdominal distention, blood in stool, constipation and diarrhea. Endocrine: Negative for polydipsia, polyphagia and polyuria. Genitourinary: Positive for menstrual problem. Negative for dysuria and hematuria. Musculoskeletal: Negative for gait problem. Skin: Negative for color change, pallor, rash and wound. Neurological: Negative for dizziness, syncope and weakness. Hematological: Does not bruise/bleed easily. Psychiatric/Behavioral: Negative for dysphoric mood. The patient is not nervous/anxious. Objective Vitals: 12/04/24 1521 BP: 130/86 Pulse: 82 SpO2: 94% Weight: (!) 324 lb (147 kg) Height: 5' 8 (1.727 m) Body mass index is 49.26 kg/m . Physical Exam Constitutional: General: She is not in acute distress. Appearance: She is obese. She is not ill-appearing, toxic-appearing or diaphoretic. HENT: Head: Normocephalic and atraumatic. Right Ear: Tympanic membrane, ear canal and external ear normal. Left Ear: Tympanic membrane, ear canal and external ear normal. Nose: Mucosal edema and rhinorrhea present. Rhinorrhea is purulent. Right Turbinates: Swollen. Left Turbinates: Swollen. Mouth/Throat: Lips: [place]. Mouth: Mucous membranes are moist. Pharynx: Oropharynx is clear. No pharyngeal swelling, oropharyngeal exudate or posterior oropharyngeal erythema. Tonsils: No tonsillar exudate. Eyes: General: No scleral icterus. Extraocular Movements: Extraocular movements intact. Pupils: Pupils are equal, round, and reactive to light. Cardiovascular: Rate and Rhythm: Normal rate and regular rhythm. Pulses: Normal pulses. Heart sounds: Normal heart sounds. No murmur heard. No friction rub. Pulmonary: Effort: Pulmonary effort is normal. Breath sounds: Wheezing (throughout bilateral posterior lung triptahi) present. No rhonchi or rales. Abdominal: General: Bowel sounds are normal. Palpations: Abdomen is soft. There is no mass. Tenderness: There is abdominal tenderness (RUQ). There is no guarding or rebound. Negative signs include Valdez's sign. Comments: Protuberant abdomen impairing examination. Musculoskeletal: General: No swelling or deformity. Right lower leg: No edema. Left lower leg: No edema. Lymphadenopathy: Head: Right side of head: No tonsillar adenopathy. Left side of head: No tonsillar adenopathy. Cervical: No cervical adenopathy. Skin: General: Skin is warm and dry. Coloration: Skin is not pale. Findings: No erythema or rash. Neurological: Mental Status: She is alert and oriented to person, place, and time. Motor: No weakness. Coordination: Coordination normal. Gait: Gait normal. Psychiatric: Behavior: Behavior normal. Thought Content: Thought content normal. Judgment: Judgment normal. Data Reviewed An electronic signature was used to authenticate this note. VIKI Torres CNP 12/04/2024 4:21 PM documented in this encounter [facility] 11-30-2024 Hospital Discharg e instructions Patient Education 11/30/2024 11:57:41 Headache, Migraine, Classic Migraine Headache This often severe type of headache is different from other types of headaches in that symptoms other than pain occur with the headache. Nausea and vomiting, lightheadedness, sensitivity to light (photophobia), and other visual disturbances are common migraine symptoms. The pain may last from a few hours to several days. It is not clear why migraines occur but certain factors called triggers can raise the risk of having a migraine attack. A migraine may be triggered by emotional stress or depression, or by hormone changes during the menstrual cycle. Other triggers include control pills, overuse of migraine medicines, alcohol or caffeine, foods with tyramine (such as aged cheese and wine), eyestrain, weather changes, missed meals, or too little or too much sleep. Home care Follow these tips when taking care of yourself at home: Don t drive yourself home if you were given pain medicine for your headache or are having visual symptoms. Instead, have someone else drive you home. Try to sleep when you get home. You should feel much better when you wake up. Cold can help ease migraine symptoms. Put an ice pack on your forehead or at the base of your skull. Put heat on the back of your neck to help ease any neck spasm. Drink only clear liquids or eat a light diet until your symptoms get better. This will help you avoid nausea and vomiting. How to prevent migraines Pay attention to what seems to trigger your headache. Try to avoid the triggers when you can. If you have frequent headaches, consider keeping a headache diary. In it, write down what you were doing, feeling, or eating in the hours before each headache. Show this to your healthcare provider to help find the cause of your headaches. If stress seems to be a trigger for your headaches, figure out what is causing stress in your life. Learn new ways to handle your stress. Ideas include regular exercise, biofeedback, self-hypnosis, yoga, and meditation. Talk with your healthcare provider to find out more information about managing stress. Many books and digital media are also available on this subject. Tyramine is a substance found in many foods. It can trigger a migraine in some people. These foods contain tyramine: Chocolate Yogurt All cheeses, but especially aged cheeses Smoked or pickled fish and meat, including dukes, caviar, bologna, pepperoni, and salami Liver Avocados Bananas Figs Raisins Red wine Try staying away from these foods for 1 to 2 months to see if you have fewer headaches. How to treat future headaches Take time out at the first sign of a headache, if possible. Find a quiet, dark, comfortable place to sit or lie down. Let yourself relax or sleep. Put an ice pack on your forehead or on the area of greatest pain. A heating pad and massage may help if you are having a muscle spasm and tightness in your neck. If you have been prescribed a medicine to stop a migraine headache, use this at the first warning sign of the headache for best results. First signs may be an aura or pain. If you need to take medicine often for your migraine, talk with your healthcare provider about other ways to prevent your headaches. Follow-up care Follow up with your healthcare provider, or as advised. Talk with your provider if you have frequent headaches. He or she can figure out a treatment plan. Ask if you can have medicine to take at home the next time you get a bad headache. This may keep you from having to visit the emergency department in the future. You may need to see a headache specialist (neurologist) if you continue to have headaches. When to seek medical advice Call your healthcare provider right away if any of these occur: Your head pain gets worse, or doesn t get better within 24 hours You can t keep liquids down (repeated vomiting) Pain in your sinuses, ears, or throat Fever of 100.4 F (38 C) or higher, or as directed by your healthcare provider Stiff neck Extreme drowsiness, confusion, or fainting Dizziness, or dizziness with spinning sensation (vertigo) Weakness in an arm or leg, or on one side of your face Difficulty talking or seeing 9672-2083 [employer]. [address] [place] [address], [place] [address]. All rights reserved. This information is not intended as a substitute for professional medical care. Always follow your healthcare professional's instructions. Follow Up Care 11/30/2024 09:41:01 With:ANDREA DUFF DO Address: [address] [place] [id number]- When:2-4 days [facility] 11-30-2024 Note Discharge Instructions Thank you for allowing [facility] to assist you with your healthcare needs. The following is important discharge information regarding your hospital visit. Diagnosis from Today's Visit Headache What to Do Next Instructions from Your Care Team No qualifying data available. Post Acute Orders No qualifying data available. You Need to Schedule the Following Appointments Follow Up with ANDREA DUFF DO When:Within 2-4 days Where:[address] [place] [id number]- Allergies Reglan Medications Please ask your primary doctor or pharmacist before taking any other medication not listed, including over the counter drugs, herbal medications, vitamins and or supplements as they may interact with your home medications. What How Much When Why Instructions Last Dose Unchanged amoxicillin-clavulanate (Augmentin) Unchanged fluticasone nasal (Flonase 50 mcg/ inh nasal spray) 1 spray(s) in the nose Two (2) times a day Eustachian tube disorder in each nostril Unchanged lidocaine topical (Lidoderm 5% topical patch) 1 patch(es) Transdermal Once a day Unchanged Misc Medication Unchanged predniSONE (predniSONE 10 mg oral tablet) 3 by mouth Two (2) times a day Coxsackie virus exanthem Hand foot and mouth disease 6 po 1st dose then 3 po q12 Unchanged sulfaSALAzine 1,000 Milligram by mouth Two (2) times a day Unchanged SUMAtriptan (Imitrex) Once Please take this list to your next doctor s visit. Bring all medications you take, including over the counter medications, herbals and other supplements with you to your doctor s visit. Patients and families are reminded to discard old lists and to update any records with all medication providers or retail pharmacies. Education Materials Migraine Headache This often severe type of headache is different from other types of headaches in that symptoms other than pain occur with the headache. Nausea and vomiting, lightheadedness, sensitivity to light (photophobia), and other visual disturbances are common migraine symptoms. The pain may last from a few hours to several days. It is not clear why migraines occur but certain factors called triggers can raise the risk of having a migraine attack. A migraine may be triggered by emotional stress or depression, or by hormone changes during the menstrual cycle. Other triggers include control pills, overuse of migraine medicines, alcohol or caffeine, foods with tyramine (such as aged cheese and wine), eyestrain, weather changes, missed meals, or too little or too much sleep. Home care Follow these tips when taking care of yourself at home: Don t drive yourself home if you were given pain medicine for your headache or are having visual symptoms. Instead, have someone else drive you home. Try to sleep when you get home. You should feel much better when you wake up. Cold can help ease migraine symptoms. Put an ice pack on your forehead or at the base of your skull. Put heat on the back of your neck to help ease any neck spasm. Drink only clear liquids or eat a light diet until your symptoms get better. This will help you avoid nausea and vomiting. How to prevent migraines Pay attention to what seems to trigger your headache. Try to avoid the triggers when you can. If you have frequent headaches, consider keeping a headache diary. In it, write down what you were doing, feeling, or eating in the hours before each headache. Show this to your healthcare provider to help find the cause of your headaches. If stress seems to be a trigger for your headaches, figure out what is causing stress in your life. Learn new ways to handle your stress. Ideas include regular exercise, biofeedback, self-hypnosis, yoga, and meditation. Talk with your healthcare provider to find out more information about managing stress. Many books and digital media are also available on this subject. Tyramine is a substance found in many foods. It can trigger a migraine in some people. These foods contain tyramine: Chocolate Yogurt All cheeses, but especially aged cheeses Smoked or pickled fish and meat, including dukes, caviar, bologna, pepperoni, and salami Liver Avocados Bananas Figs Raisins Red wine Try staying away from these foods for 1 to 2 months to see if you have fewer headaches. How to treat future headaches Take time out at the first sign of a headache, if possible. Find a quiet, dark, comfortable place to sit or lie down. Let yourself relax or sleep. Put an ice pack on your forehead or on the area of greatest pain. A heating pad and massage may help if you are having a muscle spasm and tightness in your neck. If you have been prescribed a medicine to stop a migraine headache, use this at the first warning sign of the headache for best results. First signs may be an aura or pain. If you need to take medicine often for your migraine, talk with your healthcare provider about other ways to prevent your headaches. Follow-up care Follow up with your healthcare provider, or as advised. Talk with your provider if you have frequent headaches. He or she can figure out a treatment plan. Ask if you can have medicine to take at home the next time you get a bad headache. This may keep you from having to visit the emergency department in the future. You may need to see a headache specialist (neurologist) if you continue to have headaches. When to seek medical advice Call your healthcare provider right away if any of these occur: Your head pain gets worse, or doesn t get better within 24 hours You can t keep liquids down (repeated vomiting) Pain in your sinuses, ears, or throat Fever of 100.4 F (38 C) or higher, or as directed by your healthcare provider Stiff neck Extreme drowsiness, confusion, or fainting Dizziness, or dizziness with spinning sensation (vertigo) Weakness in an arm or leg, or on one side of your face Difficulty talking or seeing [id number] [employer]. [address] [place] [address], [place] [address]. All rights reserved. This information is not intended as a substitute for professional medical care. Always follow your healthcare professional's instructions. Additional Information VACCINATE! IT SAVES LIVES! Members of the community who have not yet received the COVID-19 vaccine and would like to receive it can visit one of [facility] vaccine clinics. There are many vaccine clinic locations within the [facility]. For locations and available times, please visit [email or web address] [email or web address] It is important to note that some COVID mobile vaccine clinics are held outdoors and may be canceled in rainy or stormy conditions. To learn more about pediatric vaccinations (ages 5-11), we invite you to visit the [facility] webpage. https://www.[employer].org/pa ges/6273-Lrrax-Cksmvogocxf-Freque gjlx-Prhxg-Hljtlayac.html To learn more about the COVID-19 vaccine, we invite you to visit the CDC website for a list of frequently asked questions. https://www.cdc.gov/coronavirus/2 019-ncov/vaccines/faq.html [facility] Patient Portal Access Instructions: Stay connected with your healthcare team and access your personal medical information anytime with the [facility] Patient Portal. If you would like a full copy of your medical records please contact the [facility] Medical Records Department Wednesday through Wednesday between 8a.m. and 4:30p.m. Please follow the directions below to access the portal: 1.Access the email account you provided upon registration to the [facility].2.Look for an invitation email from [facility].3.Open the email and access the invitation link: Accept Invitation to [facility]4.Fill in the required tripathi to create your account. Sign into [email or web address].[email or web address] retargeting with your username and password that you created in the above steps to stay up to date. You can then view a summary of results, a summary of your visits, and the ability to download your summaries to your computer or send the information securely to a physician. Remember that your healthcare information is confidential, so carefully consider who you will allow to register on the [facility] Patient Portal for access to your information. You can also access the [employer] Patient Portal on the [facility] yecenia. Simply click on Health Records under Health Data and then click on the [employer] logo. HOW TO SAFELY DISPOSE OF PRESCRIPTION MEDICATIONS Please use one of the following methods to safely dispose of your unused medications. 1.Use a drug disposal kit: the drug disposal pouch allows you to safely discard your old and unused drugs. Ask your nurse to give you one when you are discharged.2.Visit a local take-back location: Many local pharmacies and police departments have programs that collect old and unwanted prescription drugs. Call your local pharmacy or go to http://OpenDoors.su.slinkset/7U6Sq4t to find one close to you.3.Make use of household items: Use cat litter or old coffee grounds to dispose medications if other options are not available. Mix your drugs with these household products, seal them in an airtight container and throw it into the garbage. Call [facility]: [phone] to be sure your drugs can be disposed of in this way. Some medicines may require a different approach.4.Never flush your medications down the toilet. IF YOU HAVE BEEN PRESCRIBED AN OPIOIDS FOR PAIN If you have been prescribed an opioid (such as hydrocodone, oxycodone or morphine), it is critical to understand the possible side effects and risks of opioid pain medications. Even when taken as directed, opioids can have several side effects including: Tolerance, meaning you might need to take more of a medication for the same pain relief. Nausea, vomiting and/or constipation. Sleepiness, dizziness, dry mouth, confusion, depression or itching. Physical dependence, meaning you have withdrawal symptoms when a medication is stopped ? this can develop within a few days. KNOW YOUR RESPONSIBILITIES It is important to know exactly how much and how often to take the opioid pain medications you are prescribed. Never take opioids in higher amounts or more often than prescribed. Do not combine opioids with alcohol or other drugs that cause drowsiness, such as benzodiazepines, also known as benzos, including diazepam and alprazolam, muscle relaxants or sleep aids. Never sell or share prescription opioids. This is illegal. Store opioids in a secure place and out of reach of others (including children, family, friends and visitors). The last page(s) of this document has been signed and retained as a CHART COPY Signatures Patient Education Materials Headache, Migraine, Classic Medication Leaflets My discharge plan and instructions have been reviewed and explained to me and IJOSE MALLORIE M understand my current condition and have read and understand these discharge instructions. I have received a written copy of the plan/instructions. If I have questions, I am aware that I should contact my doctor. 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 Patient's further questions if applicable: Expressed understanding, no further questions. Were all questions from office addressed or relayed to the patient from encounter: Yes [facility] 10-16-2024 Miscellaneous Notes Message released to patient as written. Patient's further questions if applicable: Expressed understanding, no further questions. Were all questions from office addressed or relayed to the patient from encounter: Yes Lm for patient to call the office back, please relay providers message. Let her know that she did not have sleep apnea nor did she have periodic limb movements. Remind her that her appt is 11/29 Name of caller: Hemant Contact phone number: [phone] Relationship to Patient: patient Provider: Dr. Concepcion Practice: [facility] [place] Chief Complaint/Reason for Call: Hemant states that she would like to receive a call back with an update on her sleep study results from 10/06/24. Please advise. Best time of day caller can be reached: Any Patient advised that office/PCP has 24-48 business hours to return their call: Yes documented in this encounter [facility] 10-16-2024 Telephone encounter Note Lm for patient to call the office back, please relay providers message. [facility] 10-13-2024 Telephone encounter Note Let her know that she did not have sleep apnea nor did she have periodic limb movements. Remind her that her appt is 11/29 [facility] 10-13-2024 Miscellaneous Notes Let her know that she did not have sleep apnea nor did she have periodic limb movements. Remind her that her appt is 11/29 Name of caller: Hemant Contact phone number: [phone] Relationship to Patient: patient Provider: Dr. Concepcion Practice: [facility] [place] Chief Complaint/Reason for Call: Hemant states that she would like to receive a call back with an update on her sleep study results from 10/06/24. Please advise. Best time of day caller can be reached: Any Patient advised that office/PCP has 24-48 business hours to return their call: Yes documented in this encounter [facility] 10-11-2024 Telephone encounter Note Name of caller: Hemant Contact phone number: [phone] Relationship to Patient: patient Provider: Dr. Concepcion Practice: [facility] [place] Chief Complaint/Reason for Call: Hemant states that she would like to receive a call back with an update on her sleep study results from 10/06/24. Please advise. Best time of day caller can be reached: Any Patient advised that office/PCP has 24-48 business hours to return their call: Yes [facility] 09-19-2024 History of Presen t illness Narrative Images from the original note were not included. [facility] [address] [facility] [address] Dept: [phone] Dept Loc: [phone] Iwona Concepcion MD Thank you for your kind request for a neurological consultation on this patient. CHIEF COMPLAINT: Chief Complaint Patient presents with New Patient Headache HISTORY OF PRESENT ILLNESS: The patient is a 33 y.o. person who presents with headaches since at least high school. She is having headaches 16 days per week. Right occipital and right parietal. She is sensitvie in the area of the right occipital nerve and reports that she gets a hot sensation in her upper head. Is the GUZMAN longer than four hours? Yes (Migraine) Photophobia? Yes (Migraine) Phonophobia? Yes (Migraine) Nausea/Vomiting? Yes (Migraine) Exacerbated by Movement? Yes She reports that she has vision changes in the right eye only (claims closing right eye clears up the issue) of a white spot. She reports dizziness with the headaches. (Hemicrania Continua) Autonomic Features (at least 1 of below)? (1) conjunctival injection? No (2) lacrimation? No (3) nasal congestion? No (4) rhinorrhea? No (5) ptosis? No (6) eyelid edema? Yes She feels like the right side of her face is super puffy. (New Daily Persistent GUZMAN) Clear Onset of GUZMAN Syndrome? No Persistent for >3 months? No Distinct starting point? No No prior GUZMAN history? Yes (Tension-Type GUZMAN) Mild-Moderate, Featureless? No >10 attacks per month? 30 min-7days? Bilateral? Pressing/tightening? Is the GUZMAN less than four hours? No Autonomic Features? No Cluster Headache (1 or more)? No 15 min to 180 min? No Ipsilateral conjunctival injection? No Ipsilateral Lacrimation? No Ipsilateral nasal congestion? No Ipsilateral Rhinorrhea? No Ipsilateral forehead and facial sweating? No Ipsilateral Miosis? No Ipsilateral Ptosis? No eyelid edema? No Paroxysmal Hemicrania (1 or more ipsilateral)? No (1) 2 min-30 min? No (2) conjunctival injection? No (3) lacrimation? No (4) nasal congestion? No (5) rhinorrhea? No (6) eyelid edema? No Short-lasting Unilateral Neuralgiform GUZMAN with Conjunctival Injection and Tearing? (1) 1 sec-600 s? No (2) conjunctival injection? No (3) lacrimation? No (4) nasal congestion? No (5) rhinorrhea? No (6) eyelid edema? No Hypnic GUZMAN? Only during sleep and causing awakening? No > 10 days per month? No > 3 months? No Age over 50? No Primary Cough GUZMAN? > 2 attacks? No Precipitated by coughing or other Valsalva maneuver? No 1 sec-2 hours? No Secondary cause ruled out? No Primary Exercise GUZMAN? > 2 attacks? No Precipitated by strenuous exercise? No Secondary cause ruled out? No Secondary causes of GUZMAN? Systemic Symptoms (mets, GCA, infection)? Fever? Sweats/Chills? Weight Loss? Secondary Diseases? HIV? Cancer? Chronic Infection? Chronic Immunosuppression? Neurological Symtoms and Signs (mass/structural lesion, stroke, hydrocephalus) Confusion? Focal neurological signs/symptoms? Diplopia? Transient visual obscurations? Pulsatile tinnitus? Onset: (RCVS, stroke, SAH, CVST, dissection, pituitary apoplexy, intracranial hypertension) Thunderclap? Older Age (mass, GCA) New onset after age 50? Progressive after age 50? Positional (CSF leak, mass, CVST, Sinusitis) Orthostatic? Recumbent? Worsens with change in position? Prior history (mass, infection)? / (CVST, eclampsia, RCVS, pituitary lesion, stroke)? Precipitated by valsalva (mass, Chiari)?Yes Cough?No Sneeze?No Bending?Yes Straining?Yes She is taking Excedrin without success 8-12 days per month. She has not been on a daily preventative. She reports that in 2019 she was prescribed Fioricet. The patient goes to bed around 11PM - 1 AM. It takes more than 30 min to fall asleep. NO TV or other device on. The patient gets up for the day at 730. The patient does not feel refreshed upon awakening. The patient estimations every hour arousals per sleep period. Spontaneously wakes up. She will get up and smoke a cigarette. Snoring? Yes Tired? (Tired, Fatigued, or Sleepy during the daytime) Yes Observed? (Stop Breathing or Choking/Gasping during your sleep) Yes Pressure? (High blood pressure meds?) No Body Mass Index is 28 or greater?Yes Age greater than 50?No Neck size (Men >17 in, Women >16 in)Yes Gender Male?No STOP BANG score of 5. Past Medical History: has a past medical history of Anxiety, Asthma, Celiac disease, Family history of diabetes mellitus in father (06/15/2018), Family history of ovarian cancer (06/15/2018), Family history of rheumatoid arthritis, History of kidney stones, History of migraine (2004), and Smoker. Past Surgical History: has a past surgical history that includes Salpingectomy (Right, 2018) and section (2018). Medications: Current Outpatient Medications: albuterol 108 (90 Base) MCG/ACT inhaler, Inhale., Disp: , Rfl: Allergies: Metoclopramide Social History: Social History Socioeconomic History Marital status: Significant Other Spouse name: Not on file Number of children: Not on file Years of education: Not on file Highest education level: Not on file Occupational History Not on file Tobacco Use Smoking status: Light Smoker Current packs/day: 0.00 Types: Cigarettes Start date: 11/17/2003 Last attempt to quit: 04/13/2019 Years since quittin.4 Smokeless tobacco: Never Tobacco comments: Quit smokin black and milds a week - vaped THC in the past Vaping Use Vaping status: Never Used Substance and Sexual Activity Alcohol use: No Drug use: Yes Types: Marijuana Sexual activity: Defer Other Topics Concern Not on file Social History Narrative Single, engaged to Mick, SMOKER since age 16. no ETOH , 2 sons born in 2016 and 2019. Social Drivers of Health Financial Resource Strain: High Risk (04/27/2019) Re[facility] from [facility] Overall Financial Resource Strain (CARDIA) Difficulty of Paying Living Expenses: Hard Food Insecurity: Food Insecurity Present (04/27/2019) [facility] Hunger Vital Sign Worried About Running Out of Food in the Last Year: Sometimes true Ran Out of Food in the Last Year: Never true Transportation Needs: No Transportation Needs (04/27/2019) [facility] PRAPARE - Transportation Lack of Transportation (Medical): No Lack of Transportation (Non-Medical): No Physical Activity: Insufficiently Active (04/27/2019) [facility] Exercise Vital Sign Days of Exercise per Week: 3 days Minutes of Exercise per Session: 30 min Stress: Stress Concern Present (04/27/2019) [facility] [employer] [place] [facility] [employer] - Occupational Stress Questionnaire Feeling of Stress : To some extent Social Connections: Moderately Isolated (04/27/2019) [facility] Social Connection and Isolation Panel [NHANES] Frequency of Communication with Friends and Family: Twice a week Frequency of Social Gatherings with Friends and Family: Once a week Attends Protestant Services: Never Active Member of Clubs or Organizations: No Attends Club or Organization Meetings: Never Marital Status: Living with partner Intimate Partner Violence: Not on file Housing Stability: Not on file Family History: Family History Problem Relation Name Age of Onset Ovarian cancer Mother 30 Alcohol abuse Father Iris Garcia Diabetes Father Iris Garcia Retinopatthy, - on Insulin Prostate cancer Father Iris Garcia Migraines Sister Migraines Sister No Known Problems Brother No Known Problems Brother Colon cancer Maternal Grandmother Cancer Maternal Grandmother brain abdomen or colon breast Breast cancer Maternal Grandmother Heart disease Paternal Grandfather Cancer Paternal Grandfather esophagus Uterine cancer Neg Hx REVIEW OF SYSTEMS: Review of Systems Constitutional: Negative for appetite change, chills, diaphoresis, fever and unexpected weight change. HENT: Negative for dental problem and mouth sores. Eyes: Negative for discharge and itching. Respiratory: Negative for chest tightness. Cardiovascular: Negative for chest pain and leg swelling. Gastrointestinal: Negative for rectal pain and vomiting. Endocrine: Negative for polydipsia, polyphagia and polyuria. Genitourinary: Negative for decreased urine volume, flank pain and genital sores. Musculoskeletal: Negative for arthralgias. Skin: Negative for color change. Allergic/Immunologic: Negative for food allergies and immunocompromised state. Neurological: Positive for headaches. Hematological: Negative for adenopathy. Does not bruise/bleed easily. Psychiatric/Behavioral: Negative for agitation, behavioral problems, decreased concentration, sleep disturbance and suicidal ideas. PHYSICAL EXAM: Vitals: BP 131/84 (BP Location: Left arm, Patient Position: Sitting, BP Cuff Size: Adult) Pulse 81 Ht 5' 8 (1.727 m) Wt (!) 330 lb 3.2 oz (150 kg) BMI 50.21 kg/m General Appearance: Patient is in no apparent distress. Head is normocephalic, atraumatic Cardiovascular: Regular rate and rhythm. No heart murmurs. No carotid bruit Neurologic: Mentation: Alert and oriented x 3 to person, place and time. Speech and Language: Speech and language normal Concentration and Attention: Concentration normal Memory: Memory normal Fund of Knowledge: Fund of knowledge normal Cranial Nerves: II, III, IV, V, , VII, VIII, IX, X, XI, XII tested and were intact including fundoscopic exam (optic discs) and visual field to confrontation. Motor: Strength:Strength 5 out of 5 with normal tone Alternating Movements: Normal Cogwheel Rigidity: None Tone: Tone is normal Tremor / Involuntary Movements: None Deep Tendon Reflexes: 1 out of 4 symmetrical in all four limbs. Coordination: Normal coordination upper and lower extremities Gait and Station: Station is normal. Gait is normal DATA CBC: Lab Results Component Value Date WBC 9.9 09/14/2024 RBC 4.84 09/14/2024 HGB 12.9 09/14/2024 HCT 38.6 09/14/2024 MCV 79.8 09/14/2024 MCH 26.7 09/14/2024 MCHC 33.4 09/14/2024 RDW 13.6 09/14/2024 PLT 194 09/14/2024 MPV 9.9 09/14/2024 CMP: Lab Results Component Value Date NA 138 09/14/2024 K 4.2 09/14/2024 CL 105 09/14/2024 CO2 29 09/14/2024 BUN 10 09/14/2024 CREATININE 0.98 09/14/2024 CREATININE 1.03 (H) 02/29/2020 AGRATIO 1.1 09/05/2019 GLUCOSE 82 09/14/2024 PROT 7.2 11/11/2019 CALCIUM 9.5 09/14/2024 BILITOT Negative 03/26/2020 ALKPHOS 85 11/11/2019 AST 26 11/11/2019 BMP: Lab Results Component Value Date NA 138 09/14/2024 K 4.2 09/14/2024 CL 105 09/14/2024 CO2 29 09/14/2024 BUN 10 09/14/2024 CREATININE 0.98 09/14/2024 CREATININE 1.03 (H) 02/29/2020 CALCIUM 9.5 09/14/2024 GLUCOSE 82 09/14/2024 PT/INR: Lab Results Component Value Date PROTIME 11.0 09/14/2024 INR 1.0 09/14/2024 PTT: Lab Results Component Value Date APTT 26.2 09/14/2024 [APTT} FLP: No results found for: CHLPL, TRIG, HDL, LDLCALC, LDLDIRECT TSH: No results found for: TSH VITAMIN B12: No results found for: [id number] FERRITIN: Lab Results Component Value Date FERRITIN 10 11/11/2019 - CT head wo IV contrast Narrative: [facility] 1990 [id number] Exam Date/Time: 09/14/2024 16:24 Procedure: CT HEAD WO IV CONTRAST Ordering Provider: FOREMAN MEJGON Reason For Exam: intractable headache CT head without contrast History: Headache Technique: 3 mm axial images through the head without IV contrast Dose reduction was employed with automated exposure control. Comparison: 12/14/2019 There is no evidence of intracranial hemorrhage, extra-axial fluid collection, hydrocephalus, or acute infarct. No evidence of a mass of mass affect. The visualized portions of the paranasal sinuses and the mastoid air cells are clear. Impression: No acute findings. Report Dictated on Electronically Signed By: Yonathan Kovacs MD Electronically Signed Date/Time: 09/14/2024 4:53 PM EST @RESULTINGLABINFO@ FERRITIN Date Value Ref Range Status 11/11/2019 10 8 - 252 ng/mL Final C REACTIVE PROTEIN Date Value Ref Range Status 01/03/2020 17.8 (H) 0.0 - 6.0 mg/L Final Comment: . No results found for: SIRIA, IMMUNOGLOBUL, OLIGOBANDS No results found for: [id number], HEPCAB C REACTIVE PROTEIN Date Value Ref Range Status 01/03/2020 17.8 (H) 0.0 - 6.0 mg/L Final Comment: . Narrative & Impression Patient Name: HEMANT GARCIA : 1990 Exam Date/Time: 09/14/2024 16:24 Procedure: CT HEAD WO IV CONTRAST Ordering Provider: FOREMAN MEJGON Reason For Exam: intractable headache CT head without contrast History: Headache Technique: 3 mm axial images through the head without IV contrast Dose reduction was employed with automated exposure control. Comparison: 12/14/2019 There is no evidence of intracranial hemorrhage, extra-axial fluid collection, hydrocephalus, or acute infarct. No evidence of a mass of mass affect. The visualized portions of the paranasal sinuses and the mastoid air cells are clear. IMPRESSION: No acute findings. Report Dictated on Electronically Signed By: Yonathan Kovacs MD Electronically Signed Date/Time: 09/14/2024 4:53 PM EST MRI BRAIN WITH AND WITHOUT CONTRAST CLINICAL INDICATION: Headache Multiplanar, multisequence MR imaging of the brain was performed pre and post administration of gadolinium contrast. COMPARISON: None FINDINGS: The ventricles, sulci, and cisterns are normal in size and configuration for the patient's age. There is no evidence of mass lesion, edema, or hemorrhage. There is no hydrocephalus, midline shift, or herniation. No epidural or subdural collections are present. Periventricular and subcortical white matter appears normal. Diffusion weighted images are negative for acute ischemic change. The hypothalamus and pituitary regions are normal. The brain stem, cerebellum, and craniocervical junction appear normal. The globes and orbital contents are grossly normal. Extensive bilateral maxillary and ethmoid mucosal thickening. The remaining paranasal sinuses and mastoid air cells appear pneumatized. No abnormal post contrast enhancement. IMPRESSION: Extensive bilateral maxillary and ethmoid mucosal thickening which may relate to chronic sinusitis. Otherwise unremarkable MRI of the brain. Report Dictated on --- Final --- Dictated: 12/14/2019 1:45 pm ASSESSMENT AND PLAN: Diagnosis Plan 1. Intractable migraine with aura without status migrainosus [facility] 2. Cervico-occipital neuralgia of right side 3. Obstructive sleep apnea The patient is to start amitriptyline starting at 12.5 mg and working up to 50 mg. Sumatriptan as needed. X-rays of the cervical spine and amitriptyline STOP BANG score of 6. Strong fam hx. It is medically necessary for her to have a PSG for LEXX. I spent 45 minutes caring for this patient today, reviewing labs and records, seeing the patient, documenting in the record and arranging for studies. documented in this encounter [facility] 09-14-2024 Emergency department Note Returned from radiology stating headache a little better but that wants IV removed and wants to leave. IV removed and physician aware that patient wants to just leave. [facility] 09-14-2024 Emergency department Note Returned from radiology stating headache a little better but that wants IV removed and wants to leave. IV removed and physician aware that patient wants to just leave. Pt to radiology-states the compazine made her feel very anxious (as was warned it could) and wants her IV out. Coached to slow breathing and try to calm self. Agreeable to going to CT EMERGENCY DEPARTMENT ENCOUNTER Pt Name: Hemant Garcia Birthdate 1990 Date of evaluation: 09/14/2024 ED Provider: Cricket Foreman DO CHIEF COMPLAINT Chief Complaint Patient presents with Headache HISTORY OF PRESENT ILLNESS (Location/Symptom, Timing/Onset, Context/Setting, Quality, Duration, Modifying Factors, Severity) Note limiting factors. I wore appropriate PPE for the entirety of this encounter. HPI Hemant Garcia is a 33 y.o. who presents to the emergency department with chief complaint of headache. Patient has a history of migraines and says that she does typically get headaches but they are relieved with Excedrin. Her last MRI in 2019 was normal and she is not on daily prophylactic medications for her migraines. States for the past 10 days has had a headache that she cannot control at home and is also experiencing blurry vision in the right eye, pressure in her head and has had about 5-6 episodes of vomiting over the past 10 days. She is experiencing pain in the left shoulder but also notes that she recently slipped in the shower and fell. No head injury at that time. Patient was at her PCPs office today for her migraines and they sent her to the ER for evaluation. Nursing Notes were reviewed. Limitations to history: None Outside historians: None REVIEW OF SYSTEMS Review of Systems Pertinent positives and negatives as per HPI. PAST MEDICAL HISTORY Past Medical History: Diagnosis Date Anxiety Asthma exercised induced Celiac disease Dr.Razik MARTINEZ Family history of diabetes mellitus in father 06/15/2018 Family history of ovarian cancer 06/15/2018 Family history of rheumatoid arthritis History of kidney stones History of migraine 2004 MRI head Smoker SURGICAL HISTORY Past Surgical History: Procedure Laterality Date SECTION (HISTORICAL) 2019 SALPINGECTOMY Right 2019 benign cyst; still has left tube CURRENT MEDICATIONS Previous Medications ALBUTEROL 108 (90 BASE) MCG/ACT INHALER Inhale. ALLERGIES Metoclopramide FAMILY HISTORY Family History Problem Relation Name Age of Onset Ovarian cancer Mother 30 Alcohol abuse Father Iris Garcia Diabetes Father Iris Garcia Retinopatthy, - on Insulin Prostate cancer Father Iris Garcia No Known Problems Sister No Known Problems Brother No Known Problems Brother Colon cancer Maternal Grandmother Cancer Maternal Grandmother brain abdomen or colon breast Breast cancer Maternal Grandmother Heart disease Paternal Grandfather Cancer Paternal Grandfather esophagus Uterine cancer Neg Hx SOCIAL HISTORY Social History Socioeconomic History Marital status: Significant Other Tobacco Use Smoking status: Light Smoker Current packs/day: 0.00 Types: Cigarettes Start date: 11/17/2003 Last attempt to quit: 04/13/2019 Years since quittin.4 Smokeless tobacco: Never Tobacco comments: Quit smokin black and milds a week - vaped THC in the past Vaping Use Vaping status: Never Used Substance and Sexual Activity Alcohol use: No Drug use: Yes Types: Marijuana Sexual activity: Defer Social History Narrative Single, engaged to Mick, SMOKER since age 16. no ETOH , 2 sons born in 2016 and 2019. Social Drivers of Health Financial Resource Strain: High Risk (04/27/2019) Received from [facility] Overall Financial Resource Strain (CARDIA) Difficulty of Paying Living Expenses: Hard Food Insecurity: Food Insecurity Present (04/27/2019) Received from [facility] Hunger Vital Sign Worried About Running Out of Food in the Last Year: Sometimes true Ran Out of Food in the Last Year: Never true Transportation Needs: No Transportation Needs (04/27/2019) Received from [facility] PRAPARE - Transportation Lack of Transportation (Medical): No Lack of Transportation (Non-Medical): No Physical Activity: Insufficiently Active (04/27/2019) Received from [facility] Exercise Vital Sign Days of Exercise per Week: 3 days Minutes of Exercise per Session: 30 min Stress: Stress Concern Present (04/27/2019) Received from [facility] [employer] - Occupational Stress Questionnaire Feeling of Stress : To some extent Social Connections: Moderately Isolated (04/27/2019) Received from [facility] Social Connection and Isolation Panel [NHANES] Frequency of Communication with Friends and Family: Twice a week Frequency of Social Gatherings with Friends and Family: Once a week Attends Protestant Services: Never Active Member of Clubs or Organizations: No Attends Club or Organization Meetings: Never Marital Status: Living with partner SCREENINGS [place] Coma Scale Best Eye Response: Spontaneous Best Verbal Response: Oriented Best Motor Response: Follows commands [place] Coma Scale Score: 15 PHYSICAL EXAM ED Triage Vitals [09/14/24 1548] Temp Heart Rate Resp BP 36.4 C (97.6 F) 64 16 (!) 156/99 SpO2 Temp Source Heart Rate Source Patient Position 98 % Oral -- -- BP Location FiO2 (%) -- -- Physical Exam Vitals and nursing note reviewed. Constitutional: General: She is not in acute distress. Appearance: She is well-developed. She is ill-appearing. She is not toxic-appearing. Comments: Appears uncomfortable HENT: Head: Normocephalic and atraumatic. Nose: Nose normal. Eyes: General: No visual field deficit. Extraocular Movements: Extraocular movements intact. Comments: Pupils are dilated 5 mm but equal and reactive Neck: Meningeal: Kernig's sign present. Brudzinski's sign absent. Cardiovascular: Rate and Rhythm: Normal rate and regular rhythm. Heart sounds: Normal heart sounds. Pulmonary: Effort: Pulmonary effort is normal. No respiratory distress. Breath sounds: Normal breath sounds. Abdominal: General: There is no distension. Palpations: Abdomen is soft. Tenderness: There is no abdominal tenderness. Musculoskeletal: General: Normal range of motion. Cervical back: Normal range of motion and neck supple. No rigidity. Right lower leg: No edema. Left lower leg: No edema. Skin: General: Skin is warm and dry. Capillary Refill: Capillary refill takes less than 2 seconds. Neurological: General: No focal deficit present. Mental Status: She is alert and oriented to person, place, and time. Mental status is at baseline. Cranial Nerves: Cranial nerve deficit (Diminished sensation to dull touch over the left V3 distribution) present. No dysarthria or facial asymmetry. Sensory: No sensory deficit. Motor: No weakness. Coordination: Romberg sign negative. Coordination normal. DIAGNOSTIC RESULTS Procedures/EKG: EKG was reviewed by myself. Physician EKG interpretation can be found in [facility] RADIOLOGY (Per Emergency Physician): Interpretation per the Radiologist below, if available at the time of this note: CT head wo IV contrast Final Result No acute findings. Report Dictated on Electronically Signed By: Yonathan Kovacs MD Electronically Signed Date/Time: 09/14/2024 4:53 PM EST ED BEDSIDE ULTRASOUND: Performed by ED Physician - none LABS: Labs Reviewed CBC WITH AUTO DIFFERENTIAL - Abnormal Result Value Auto WBC 9.9 RBC 4.84 Hemoglobin 12.9 Hematocrit 38.6 MCV 79.8 MCH 26.7 MCHC 33.4 RDW 13.6 Platelets 194 MPV 9.9 nRBC 0.0 Neutrophils Relative 68.4 Lymphocytes Relative 22.6 Monocytes Relative 5.5 Eosinophils Relative 2.5 Basophils Relative 0.5 Immature Grans % 0.5 Neutrophils Absolute 6.8 Lymphocytes Absolute 2.2 Monocytes Absolute 0.5 Eosinophils Absolute 0.3 Basophils Absolute 0.1 Immature Grans Absolute 0.1 (*) BASIC METABOLIC PANEL - Normal SODIUM 138 POTASSIUM 4.2 CHLORIDE 105 CARBON DIOXIDE 29 UREA NITROGEN 10 CREATININE 0.98 GLUCOSE 82 CALCIUM 9.5 ANION GAP 4 eGFR 79.3 PROTHROMBIN TIME - Normal PROTHROMBIN TIME 11.0 INR 1.0 APTT - Normal APTT 26.2 Narrative: NOTE: The therapeutic time for Heparin anticoagulation, based on Xa activity inhibition, is an APTT of 46-80 seconds. All other labs were within normal range or not returned as of this dictation. EMERGENCY DEPARTMENT COURSE and DIFFERENTIAL DIAGNOSIS/MDM: Vitals: Vitals: 09/14/24 1548 BP: (!) 156/99 Pulse: 64 Resp: 16 Temp: 36.4 C (97.6 F) TempSrc: Oral SpO2: 98% Weight: (!) 150 kg (330 lb) Height: 1.727 m (5' 8) Diagnoses as of 09/14/24 1711 Acute nonintractable headache, unspecified headache type The patient presented with chief complaint of headache. The differential diagnosis associated with this patient's presentation includes migraine, trigeminal neuralgia, meningitis. Our workup consisted of ordering/reviewing: Labs and CT. Patient is in agreement with this plan. Medications ketorolac (Toradol) injection 15 mg (has no administration in time range) sodium chloride 0.9 % bolus 1,000 mL (0 mL IntraVENous Stopped 2/6/25 1655) prochlorperazine (Compazine) injection 10 mg (10 mg IntraVENous Given 09/14/241616) diphenhydrAMINE (BENADryl) injection 12.5 mg (12.5 mg IntraVENous Given 09/14/241616) magnesium sulfate IVPB premix 2,000 mg (0 mg IntraVENous Stopped 09/14/241654) REVAL: 33-year-old female presenting to the ED from her PCPs office for headache. Patient appears uncomfortable but is able to cooperate with history and exam. She has diminished sensation to dull touch over the left V3 distribution, otherwise neurological exam is intact. She does endorse blurry vision of the right eye but her visual tripathi are intact. No midline tenderness on exam. Full range of motion of the neck with negative Prusinski sign. Does have an equivocal Kernig sign with left-sided neck and shoulder discomfort with leg lift. Given that the symptomology of her migraines has now changed, a head CT was obtained and was unremarkable. Labs without leukocytosis or other concerning findings. Patient is afebrile and her symptoms have been ongoing for the past 10 days. Suspect that if this was a bacterial meningitis, she would be much sicker by now. I believe her symptoms are due to migraine with a possible muscular component with her left-sided pain given her recent fall. Low concern for fracture given that she is not focally tender over the left shoulder and has full range of motion of the joint. Patient was treated with IV fluids, magnesium, Compazine and Benadryl for her migraine. I was advised by nursing that patient was feeling anxious after receiving Compazine and had reportedly had a similar reaction to the Reglan previously. She wanted her IV removed and she wanted to be discharged. I did speak with the patient that I have low concern for bacterial meningitis however we can continue to treat her migraine with Toradol but patient declined. Stated that her headache was improving and wanted to be discharged. She was agreeable with neurology follow-up for migraine management and will return to the ER for worsening symptoms. CRITICAL CARE TIME CONSULTS: None PROCEDURES: Unless otherwise noted below, none Procedures Patients symptoms are consistent with sepsis, severe sepsis, or septic shock (If yes use .sepsiscoremeasure): FINAL IMPRESSION 1. Acute nonintractable headache, unspecified headache type DISPOSITION Discharge 09/14/2024 05:06:22 PM PATIENT REFERRED TO: [facility] [address] [facility] [place] [address] DISCHARGE MEDICATIONS: New Prescriptions No medications on file (Comment: Please note this report has been produced using speech recognition software and may contain errors related to that system including errors in grammar, punctuation, and spelling, as well as words and phrases that may be inappropriate. If there are any questions or concerns please feel free to contact the dictating provider for clarification.) Cricket Foreman DO (electronically signed) Emergency Medicine Provider Cricket Foreman DO 09/14/24 1715 Was at doctor's office this afternoon for 10 day headache and sent to ER for high blood pressure reading. States also with photophobia, nausea, vomiting and left neck pain. documented in this encounter [facility] 09-14-2024 Emergency department Note Pt to radiology-states the compazine made her feel very anxious (as was warned it could) and wants her IV out. Coached to slow breathing and try to calm self. Agreeable to going to [place] [facility] 09-14-2024 Emergency department Triage note Was at doctor's office this afternoon for 10 day headache and sent to ER for high blood pressure reading. States also with photophobia, nausea, vomiting and left neck pain. [facility] 09-14-2024 Physician Emergency department Note EMERGENCY DEPARTMENT ENCOUNTER Pt Name: Hemant Garcia Birthdate 1990 Date of evaluation: 09/14/2024 ED Provider: Cricket Foreman DO CHIEF COMPLAINT Chief Complaint Patient presents with Headache HISTORY OF PRESENT ILLNESS (Location/Symptom, Timing/Onset, Context/Setting, Quality, Duration, Modifying Factors, Severity) Note limiting factors. I wore appropriate PPE for the entirety of this encounter. HPI Hemant Garcia is a 33 y.o. who presents to the emergency department with chief complaint of headache. Patient has a history of migraines and says that she does typically get headaches but they are relieved with Excedrin. Her last MRI in 2019 was normal and she is not on daily prophylactic medications for her migraines. States for the past 10 days has had a headache that she cannot control at home and is also experiencing blurry vision in the right eye, pressure in her head and has had about 5-6 episodes of vomiting over the past 10 days. She is experiencing pain in the left shoulder but also notes that she recently slipped in the shower and fell. No head injury at that time. Patient was at her PCPs office today for her migraines and they sent her to the ER for evaluation. Nursing Notes were reviewed. Limitations to history: None Outside historians: None REVIEW OF SYSTEMS Review of Systems Pertinent positives and negatives as per HPI. PAST MEDICAL HISTORY Past Medical History: Diagnosis Date Anxiety Asthma exercised induced Celiac disease Dr.Razik MARTINEZ Family history of diabetes mellitus in father 06/15/2018 Family history of ovarian cancer 06/15/2018 Family history of rheumatoid arthritis History of kidney stones History of migraine 2005 MRI head Smoker SURGICAL HISTORY Past Surgical History: Procedure Laterality Date SECTION (HISTORICAL) 2019 SALPINGECTOMY Right 2019 benign cyst; still has left tube CURRENT MEDICATIONS Previous Medications ALBUTEROL 108 (90 BASE) MCG/ACT INHALER Inhale. ALLERGIES Metoclopramide FAMILY HISTORY Family History Problem Relation Name Age of Onset Ovarian cancer Mother 30 Alcohol abuse Father Iris Garcia Diabetes Father Iris Garcia Retinopatthy, - on Insulin Prostate cancer Father Iris Garcia No Known Problems Sister No Known Problems Brother No Known Problems Brother Colon cancer Maternal Grandmother Cancer Maternal Grandmother brain abdomen or colon breast Breast cancer Maternal Grandmother Heart disease Paternal Grandfather Cancer Paternal Grandfather esophagus Uterine cancer Neg Hx SOCIAL HISTORY Social History Socioeconomic History Marital status: Significant Other Tobacco Use Smoking status: Light Smoker Current packs/day: 0.00 Types: Cigarettes Start date: 11/17/2003 Last attempt to quit: 04/13/2019 Years since quittin.4 Smokeless tobacco: Never Tobacco comments: Quit smokin black and milds a week - vaped THC in the past Vaping Use Vaping status: Never Used Substance and Sexual Activity Alcohol use: No Drug use: Yes Types: Marijuana Sexual activity: Defer Social History Narrative Single, engaged to Mick, SMOKER since age 16. no ETOH , 2 sons born in 2016 and 2019. Social Drivers of Health Financial Resource Strain: High Risk (04/27/2019) Received from [facility] Overall Financial Resource Strain (CARDIA) Difficulty of Paying Living Expenses: Hard Food Insecurity: Food Insecurity Present (04/27/2019) Received from [facility] Hunger Vital Sign Worried About Running Out of Food in the Last Year: Sometimes true Ran Out of Food in the Last Year: Never true Transportation Needs: No Transportation Needs (04/27/2019) Received from [facility] PRAPARE - Transportation Lack of Transportation (Medical): No Lack of Transportation (Non-Medical): No Physical Activity: Insufficiently Active (04/27/2019) Received from [facility] Exercise Vital Sign Days of Exercise per Week: 3 days Minutes of Exercise per Session: 30 min Stress: Stress Concern Present (04/27/2019) Received from [facility] [employer] [place] [employer] [facility] - Occupational Stress Questionnaire Feeling of Stress : To some extent Social Connections: Moderately Isolated (04/27/2019) Received from [facility] Social Connection and Isolation Panel [NHANES] Frequency of Communication with Friends and Family: Twice a week Frequency of Social Gatherings with Friends and Family: Once a week Attends Protestant Services: Never Active Member of Clubs or Organizations: No Attends Club or Organization Meetings: Never Marital Status: Living with partner SCREENINGS [place] Coma Scale Best Eye Response: Spontaneous Best Verbal Response: Oriented Best Motor Response: Follows commands Lindy Coma Scale Score: 15 PHYSICAL EXAM ED Triage Vitals [09/14/24 1548] Temp Heart Rate Resp BP 36.4 C (97.6 F) 64 16 (!) 156/99 SpO2 Temp Source Heart Rate Source Patient Position 98 % Oral -- -- BP Location FiO2 (%) -- -- Physical Exam Vitals and nursing note reviewed. Constitutional: General: She is not in acute distress. Appearance: She is well-developed. She is ill-appearing. She is not toxic-appearing. Comments: Appears uncomfortable HENT: Head: Normocephalic and atraumatic. Nose: Nose normal. Eyes: General: No visual field deficit. Extraocular Movements: Extraocular movements intact. Comments: Pupils are dilated 5 mm but equal and reactive Neck: Meningeal: Kernig's sign present. Brudzinski's sign absent. Cardiovascular: Rate and Rhythm: Normal rate and regular rhythm. Heart sounds: Normal heart sounds. Pulmonary: Effort: Pulmonary effort is normal. No respiratory distress. Breath sounds: Normal breath sounds. Abdominal: General: There is no distension. Palpations: Abdomen is soft. Tenderness: There is no abdominal tenderness. Musculoskeletal: General: Normal range of motion. Cervical back: Normal range of motion and neck supple. No rigidity. Right lower leg: No edema. Left lower leg: No edema. Skin: General: Skin is warm and dry. Capillary Refill: Capillary refill takes less than 2 seconds. Neurological: General: No focal deficit present. Mental Status: She is alert and oriented to person, place, and time. Mental status is at baseline. Cranial Nerves: Cranial nerve deficit (Diminished sensation to dull touch over the left V3 distribution) present. No dysarthria or facial asymmetry. Sensory: No sensory deficit. Motor: No weakness. Coordination: Romberg sign negative. Coordination normal. DIAGNOSTIC RESULTS Procedures/EKG: EKG was reviewed by myself. Physician EKG interpretation can be found in [facility] RADIOLOGY (Per Emergency Physician): Interpretation per the Radiologist below, if available at the time of this note: CT head wo IV contrast Final Result No acute findings. Report Dictated on Electronically Signed By: Yonathan Kovacs MD Electronically Signed Date/Time: 09/14/2024 4:53 PM EST ED BEDSIDE ULTRASOUND: Performed by ED Physician - none LABS: Labs Reviewed CBC WITH AUTO DIFFERENTIAL - Abnormal Result Value Auto WBC 9.9 RBC 4.84 Hemoglobin 12.9 Hematocrit 38.6 MCV 79.8 MCH 26.7 MCHC 33.4 RDW 13.6 Platelets 194 MPV 9.9 nRBC 0.0 Neutrophils Relative 68.4 Lymphocytes Relative 22.6 Monocytes Relative 5.5 Eosinophils Relative 2.5 Basophils Relative 0.5 Immature Grans % 0.5 Neutrophils Absolute 6.8 Lymphocytes Absolute 2.2 Monocytes Absolute 0.5 Eosinophils Absolute 0.3 Basophils Absolute 0.1 Immature Grans Absolute 0.1 (*) BASIC METABOLIC PANEL - Normal SODIUM 138 POTASSIUM 4.2 CHLORIDE 105 CARBON DIOXIDE 29 UREA NITROGEN 10 CREATININE 0.98 GLUCOSE 82 CALCIUM 9.5 ANION GAP 4 eGFR 79.3 PROTHROMBIN TIME - Normal PROTHROMBIN TIME 11.0 INR 1.0 APTT - Normal APTT 26.2 Narrative: NOTE: The therapeutic time for Heparin anticoagulation, based on Xa activity inhibition, is an APTT of 46-80 seconds. All other labs were within normal range or not returned as of this dictation. EMERGENCY DEPARTMENT COURSE and DIFFERENTIAL DIAGNOSIS/MDM: Vitals: Vitals: 09/14/24 1548 BP: (!) 156/99 Pulse: 64 Resp: 16 Temp: 36.4 C (97.6 F) TempSrc: Oral SpO2: 98% Weight: (!) 150 kg (330 lb) Height: 1.727 m (5' 8) Diagnoses as of 09/14/24 1711 Acute nonintractable headache, unspecified headache type The patient presented with chief complaint of headache. The differential diagnosis associated with this patient's presentation includes migraine, trigeminal neuralgia, meningitis. Our workup consisted of ordering/reviewing: Labs and CT. Patient is in agreement with this plan. Medications ketorolac (Toradol) injection 15 mg (has no administration in time range) sodium chloride 0.9 % bolus 1,000 mL (0 mL IntraVENous Stopped 09/14/24 1655) prochlorperazine (Compazine) injection 10 mg (10 mg IntraVENous Given 09/14/24 1617) diphenhydrAMINE (BENADryl) injection 12.5 mg (12.5 mg IntraVENous Given 09/14/24 1617) magnesium sulfate IVPB premix 2,000 mg (0 mg IntraVENous Stopped 09/14/24 165) REVAL: 33-year-old female presenting to the ED from her PCPs office for headache. Patient appears uncomfortable but is able to cooperate with history and exam. She has diminished sensation to dull touch over the left V3 distribution, otherwise neurological exam is intact. She does endorse blurry vision of the right eye but her visual tripathi are intact. No midline tenderness on exam. Full range of motion of the neck with negative Prusinski sign. Does have an equivocal Kernig sign with left-sided neck and shoulder discomfort with leg lift. Given that the symptomology of her migraines has now changed, a head CT was obtained and was unremarkable. Labs without leukocytosis or other concerning findings. Patient is afebrile and her symptoms have been ongoing for the past 10 days. Suspect that if this was a bacterial meningitis, she would be much sicker by now. I believe her symptoms are due to migraine with a possible muscular component with her left-sided pain given her recent fall. Low concern for fracture given that she is not focally tender over the left shoulder and has full range of motion of the joint. Patient was treated with IV fluids, magnesium, Compazine and Benadryl for her migraine. I was advised by nursing that patient was feeling anxious after receiving Compazine and had reportedly had a similar reaction to the Reglan previously. She wanted her IV removed and she wanted to be discharged. I did speak with the patient that I have low concern for bacterial meningitis however we can continue to treat her migraine with Toradol but patient declined. Stated that her headache was improving and wanted to be discharged. She was agreeable with neurology follow-up for migraine management and will return to the ER for worsening symptoms. CRITICAL CARE TIME CONSULTS: None PROCEDURES: Unless otherwise noted below, none Procedures Patients symptoms are consistent with sepsis, severe sepsis, or septic shock (If yes use .sepsiscoremeasure): FINAL IMPRESSION 1. Acute nonintractable headache, unspecified headache type DISPOSITION Discharge 09/14/2024 05:06:22 PM PATIENT REFERRED TO: [address] [facility] [place] [address] DISCHARGE MEDICATIONS: New Prescriptions No medications on file (Comment: Please note this report has been produced using speech recognition software and may contain errors related to that system including errors in grammar, punctuation, and spelling, as well as words and phrases that may be inappropriate. If there are any questions or concerns please feel free to contact the dictating provider for clarification.) Cricket Foreman DO (electronically signed) Emergency Medicine Provider Cricket Foreman DO 09/14/24 1715 [facility] 09-14-2024 History of Presen t illness Narrative Images from the original note were not included. [facility] - [address] [facility] [id number] Visit type: Established Patient Reason for Visit: Migraine (X11 days ), Blurred Vision, and Vomiting Assessment / Plan: Hemant was seen today for migraine, blurred vision and vomiting. Diagnoses and all orders for this visit: Other migraine with status migrainosus, intractable (Primary) Comments: Intractable, to ER Nausea and vomiting, unspecified vomiting type Elevated blood pressure reading without diagnosis of hypertension Some nuchal signs, to ER for urgent evaluation including CT imaging. Did discuss case with [facility] ER attending Subjective: Patient ID: Hemant Garcia is a 33 y.o. female. HPI patient with a history of migraines for many years has had 2 days of intense right-sided headache that radiates to the neck. Accompanied by nausea and vomiting. She does state yesterday she felt a peculiar pop in her head. She has blurred vision. No scotomas or unilateral numbness of the face arm or legs. History of migraines for at least 15 years. This seems similar but worse. No recent fever rhinorrhea or purulent phlegm. Presently on no meds. Had respond to some type of triptan quite a few years ago. MRI imaging in 2019 unremarkable except for sinus changes. Review of Systems is a smoker. Does not feel particularly ill regards to abdominal pain and has had no diarrhea. No cough or congestion. No chest pain or palpitations. No history of hypertension. Allergies Allergen Reactions Metoclopramide Anxiety Other reaction(s): Other: See Comments Anxiety attack Current Outpatient Medications on File Prior to Visit Medication Sig Dispense Refill albuterol 108 (90 Base) MCG/ACT inhaler Inhale. [DISCONTINUED] predniSONE (Deltasone) 20 MG tablet Take 3 tablets daily for 5 days, then 2 tablets daily for 5 days, then 1 tablet daily for 5 days. 30 tablet 0 No current facility-administered medications on file prior to visit. Patient Active Problem List Diagnosis Inflammatory arthritis History of migraine History of renal stone Smoker Family history of diabetes mellitus in father Family history of ovarian cancer History of pneumonia Hilar adenopathy Leukocytosis Splenomegaly Obesity in Acute cystitis without hematuria Adnexal mass Non-intractable cyclical vomiting with nausea delivery delivered Back pain affecting in third trimester Bacterial vaginosis History of pre-eclampsia in prior , currently in first trimester Family history of cardiac arrhythmia Pap smear of cervix with ASCUS, cannot exclude HGSIL RLQ abdominal pain Cystic fibrosis carrier, antepartum Vulvar abscess Abnormal genetic test during HRP (high risk ) Anxiety Threatened premature labor in third trimester Social History Tobacco Use Smoking status: Light Smoker Current packs/day: 0.00 Types: Cigarettes Start date: 11/17/2003 Last attempt to quit: 04/13/2019 Years since quittin.4 Smokeless tobacco: Never Tobacco comments: Quit smokin black and milds a week - vaped THC in the past Substance Use Topics Alcohol use: No Past Surgical History: Procedure Laterality Date SECTION (HISTORICAL) 2019 SALPINGECTOMY Right 2019 benign cyst; still has left tube Family History Problem Relation Name Age of Onset Ovarian cancer Mother 30 Alcohol abuse Father Iris Garcia Diabetes Father Iris Garcia Retinopatthy, - on Insulin Prostate cancer Father Iris Garcia No Known Problems Sister No Known Problems Brother No Known Problems Brother Colon cancer Maternal Grandmother Cancer Maternal Grandmother brain abdomen or colon breast Breast cancer Maternal Grandmother Heart disease Paternal Grandfather Cancer Paternal Grandfather esophagus Uterine cancer Neg Hx Objective: BP (!) 152/84 Pulse 72 Temp 36.3 C (97.3 F) (Temporal) Ht 5' 8 (1.727 m) Wt (!) 336 lb 12.8 oz (153 kg) SpO2 98% BMI 51.21 kg/m Physical Exam she is pleasant and alert and oriented. Pupils equal. Extraocular muscles are intact. Sharp funduscopic exam. All cranial nerves are normal. Rapid alternating movements are normal. No Babinski or clonus. Reflexes physiologic. Gait is stable. Normal cerebellar testing. However has positive Kernig's sign and Brudzinski's Kernig's Normal eardrums and oropharynx. No neck masses or adenopathy. Heart is regular without murmurs. Lungs are clear. Abdomen soft nontender good bowel sounds. No hepatosplenomegaly or masses. Recheck blood pressure 152/84. documented in this encounter [facility] 09-14-2024 Instructions Andrea Duff DO - 09/14/2024 3:00 PM EST To ER now with wheelchair by my staff documented in this encounter [facility] 09-13-2024 Telephone encounter Note S: Patient spoke with [facility] regarding dizziness, vomiting, migraine B: Onset of symptoms/concern 9 days A: Pt endorses dizziness, vomiting, migraine for the last 9 days. Pt states symptoms unchanged for 9 days, requesting appointment to be scheduled. R: Pt states unable to be seen today, working. Pt scheduled 09/14/24. No further needs at this time. Patient instructed to call back with new or worsening symptoms. Reason for Disposition Patient wants to be seen Protocols used: [id number] [facility] 09-13-2024 Miscellaneous Notes S: Patient spoke with [facility] regarding dizziness, vomiting, migraine B: Onset of symptoms/concern 9 days A: Pt endorses dizziness, vomiting, migraine for the last 9 days. Pt states symptoms unchanged for 9 days, requesting appointment to be scheduled. R: Pt states unable to be seen today, working. Pt scheduled 09/14/24. No further needs at this time. Patient instructed to call back with new or worsening symptoms. Reason for Disposition Patient wants to be seen Protocols used: [id number] documented in this encounter [facility] [employer] 04-28-2024 History of Presen t illness Narrative Images from the original note were not included. 04/28/2024 Hemant Garcia (: 1990) is a 33 y.o. female , Established patient, here for evaluation of the following chief complaint(s): Rash ([place], and has a rash and itching on her legs, and a few on her arm. States that her feet are blistering. ) ASSESSMENT/PLAN: 1. Allergic contact dermatitis due to other agents - predniSONE (Deltasone) 20 MG tablet; Take 3 tablets daily for 5 days, then 2 tablets daily for 5 days, then 1 tablet daily for 5 days., Normal - Home care measures discussed. - Discussed signs and symptoms warranting follow up in the office- verbalized understanding. 2. Influenza vaccine refused Follow up if symptoms worsen or fail to improve. SUBJECTIVE/OBJECTIVE: HPI Greg Schultz presents today as a POD schedule with concerns of a rash on her bilateral lower extremities since 04/22/24. States she was at [place] prior to symptoms starting. Denies other people with her on the trip experiencing similar symptoms. States it is extremely itchy and has drained clear liquid. Has tried taking Benadryl and Hydrocortisone cream, which has not been helpful. Answers submitted by the patient for this visit: Other (Submitted on 04/28/2024) Please describe your symptoms.: Rash Have you had these symptoms before?: No How long have you been having these symptoms?: For a few days Please list any medications you are currently taking for this condition.: Benadryl Please describe any probable cause for these symptoms. : [place] [facility] Maintenance: Declines a flu vaccination. Review of Systems Constitutional: Negative for chills and fever. Respiratory: Negative for chest tightness and shortness of breath. Cardiovascular: Negative for chest pain. Musculoskeletal: Negative for arthralgias. Skin: Positive for rash. Vitals: 09/20/24 0917 BP: 108/72 Pulse: 67 SpO2: 98% Weight: (!) 333 lb 6.4 oz (151 kg) Height: 5' 8 (1.727 m) Body mass index is 50.69 kg/m . Physical Exam Constitutional: General: She is not in acute distress. Appearance: She is not ill-appearing or diaphoretic. Cardiovascular: Rate and Rhythm: Normal rate and regular rhythm. Heart sounds: Normal heart sounds. Pulmonary: Effort: Pulmonary effort is normal. Skin: Comments: Scattered urticarial rash on bilateral lower extremities. Negative for Drew's sign or lesions between toes. Neurological: Mental Status: She is alert and oriented to person, place, and time. An electronic signature was used to authenticate this note. VIKI Torres CNP 04/28/2024 9:32 AM Patient verified by last name and . documented in this encounter [employer] 04-27-2024 Telephone encounter Note S: pt calling [facility] d/t rash B: Symptoms started over last couple of days. A: Pt calling regarding rash predominantly on legs and arms itchy everywhere. The ones on her feet are pinpoint blisters that are draining clear fluid. Benadryl is not helping. States was in ocean recently and not sure if it is due to sand fleas. Has also been using cool compress. Denies look of infection or fever. R: unable to come in today Insurance verified. Yecenia scheduled with [facility] on 04/28 [address] to [place]. advised to come 10-15 minutes early bring insurance card id and medication list. Discussed hydrocortisone cream, cool compress, aveeno oatmeal bath. Pt advised to call back with worsening of symptoms, concern or questions. Pt verbalized understanding. Reason for Disposition SEVERE local itching persists after 2 days of steroid cream Protocols used: Rash or Redness - [id number] [facility] 04-27-2024 Miscellaneous Notes S: pt calling [facility] d/t rash B: Symptoms started over last couple of days. A: Pt calling regarding rash predominantly on legs and arms itchy everywhere. The ones on her feet are pinpoint blisters that are draining clear fluid. Benadryl is not helping. States was in ocean recently and not sure if it is due to sand fleas. Has also been using cool compress. Denies look of infection or fever. R: unable to come in today Insurance verified. Yecenia scheduled with [facility] on 04/28 [address] to [place]. advised to come 10-15 minutes early bring insurance card id and medication list. Discussed hydrocortisone cream, cool compress, aveeno oatmeal bath. Pt advised to call back with worsening of symptoms, concern or questions. Pt verbalized understanding. Reason for Disposition SEVERE local itching persists after 2 days of steroid cream Protocols used: Rash or Redness - [id number] documented in this encounter [facility] 06-05-2023 Hospital Discharg e instructions Patient Education 06/05/2023 20:16:55 Wrist Sprain Wrist Sprain A sprain is an injury to the ligaments or capsule that holds a joint together. There are no broken bones. Most sprains take about 3 to 6 weeks to heal. If it a severe sprain where the ligament is completely torn, it can take months to recover. Most wrist sprains are treated with a splint, wrist brace, or elastic wrap for support. Severe sprains may require surgery. Home care Keep your arm elevated to reduce pain and swelling. This is very important during the first 48 hours. Apply an ice pack over the injured area for 15 to 20 minutes every 3 to 6 hours. You should do this for the first 24 to 48 hours. You can make an ice pack by filling a plastic bag that seals at the top with ice cubes and then wrapping it with a thin towel. Continue to use ice packs for relief of pain and swelling as needed. As the ice melts, be careful to avoid getting your wrap, splint, or cast wet. After 48 hours, apply heat (warm shower or warm bath) for 15 to 20 minutes several times a day, or alternate ice and heat. You may use kcku-ugj-vzapnog pain medicine to control pain, unless another pain medicine was prescribed. If you have chronic liver or kidney disease or ever had a stomach ulcer or gastrointestinal bleeding, talk with your doctor before using these medicines. If you were given a splint or brace, wear it for the time advised by your doctor. Follow-up care Follow up with your healthcare provider, or as advised. Any X-rays you had today don t show any broken bones, breaks, or fractures. Sometimes fractures don t show up on the first X-ray. Bruises and sprains can sometimes hurt as much as a fracture. These injuries can take time to heal completely. If your symptoms don t improve or they get worse, talk with your doctor. You may need a repeat X-ray. If X-rays were taken, you will be told of any new findings that may affect your care. When to seek medical advice Call your healthcare provider right away if any of these occur: Pain or swelling increases Fingers or hand becomes cold, blue, numb, or tingly [phone] [employer] [place] [address]. All rights reserved. This information is not intended as a substitute for professional medical care. Always follow your healthcare professional's instructions. Follow Up Care 06/05/2023 19:16:42 With:DO FARHEEN QUINTERO DO Address: [address] [place] [address] [address] [place] [address] When:2-4 days With:ALEX ORTEGA MD, Pediatric Allergy Address: [address] [place] [id number]- When:2-4 days [facility] 06-05-2023 Note Discharge Instructions Thank you for allowing [facility] to assist you with your healthcare needs. The following is important discharge information regarding your hospital visit. Diagnosis from Today's Visit Wrist pain-swelling Wrist sprain What to Do Next Instructions from Your Care Team Discharge Home Equipment - Ordered -- Splint, wrist Right, 99 month(s), 06/05/23 20:15:00 EDT Post Acute Orders No qualifying data available. You Need to Schedule the Following Appointments Follow Up with DO FARHEEN QUINTERO DO When Within 2-4 days Where: [address] [place] [address] Follow Up with ALEX ORTEGA MD, Pediatric Allergy When Within 2-4 days Where: [address] [facility] [place] [address]- Allergies Reglan Medications Please ask your primary doctor or pharmacist before taking any other medication not listed, including over the counter drugs, herbal medications, vitamins and or supplements as they may interact with your home medications. What How Much When Why Instructions Last Dose Unchanged amoxicillin-clavulanate (Augmentin) Unchanged fluticasone nasal (Flonase 50 mcg/ inh nasal spray) 1 spray(s) in the nose Two (2) times a day Eustachian tube disorder in each nostril Unchanged lidocaine topical (Lidoderm 5% topical patch) 1 patch(es) Transdermal Once a day Unchanged Misc Medication Unchanged predniSONE (predniSONE 10 mg oral tablet) 3 by mouth Two (2) times a day Coxsackie virus exanthem Hand foot and mouth disease 6 po 1st dose then 3 po q12 Unchanged sulfaSALAzine 1,000 Milligram by mouth Two (2) times a day Unchanged SUMAtriptan (Imitrex) Once Please take this list to your next doctor s visit. Bring all medications you take, including over the counter medications, herbals and other supplements with you to your doctor s visit. Patients and families are reminded to discard old lists and to update any records with all medication providers or retail pharmacies. Education Materials Wrist Sprain A sprain is an injury to the ligaments or capsule that holds a joint together. There are no broken bones. Most sprains take about 3 to 6 weeks to heal. If it a severe sprain where the ligament is completely torn, it can take months to recover. Most wrist sprains are treated with a splint, wrist brace, or elastic wrap for support. Severe sprains may require surgery. Home care Keep your arm elevated to reduce pain and swelling. This is very important during the first 48 hours. Apply an ice pack over the injured area for 15 to 20 minutes every 3 to 6 hours. You should do this for the first 24 to 48 hours. You can make an ice pack by filling a plastic bag that seals at the top with ice cubes and then wrapping it with a thin towel. Continue to use ice packs for relief of pain and swelling as needed. As the ice melts, be careful to avoid getting your wrap, splint, or cast wet. After 48 hours, apply heat (warm shower or warm bath) for 15 to 20 minutes several times a day, or alternate ice and heat. You may use [id number] pain medicine to control pain, unless another pain medicine was prescribed. If you have chronic liver or kidney disease or ever had a stomach ulcer or gastrointestinal bleeding, talk with your doctor before using these medicines. If you were given a splint or brace, wear it for the time advised by your doctor. Follow-up care Follow up with your healthcare provider, or as advised. Any X-rays you had today don t show any broken bones, breaks, or fractures. Sometimes fractures don t show up on the first X-ray. Bruises and sprains can sometimes hurt as much as a fracture. These injuries can take time to heal completely. If your symptoms don t improve or they get worse, talk with your doctor. You may need a repeat X-ray. If X-rays were taken, you will be told of any new findings that may affect your care. When to seek medical advice Call your healthcare provider right away if any of these occur: Pain or swelling increases Fingers or hand becomes cold, blue, numb, or tingly [phone] [employer]. [address] [place] [address]. All rights reserved. This information is not intended as a substitute for professional medical care. Always follow your healthcare professional's instructions. Additional Information VACCINATE! IT SAVES LIVES! Members of the community who have not yet received the COVID-19 vaccine and would like to receive it can visit one of [facility] vaccine clinics. There are many vaccine clinic locations within the [facility]. For locations and available times, please visit [email or web address] It is important to note that some COVID mobile vaccine clinics are held outdoors and may be canceled in rainy or stormy conditions. To learn more about pediatric vaccinations (ages 5-11), we invite you to visit the [facility] webpage. https://www.[facility].org/pa ges/2135-Lpcld-Mttwnnojpfp-Freque xcrj-Uropj-Xtuaqcrcv.html To learn more about the COVID-19 vaccine, we invite you to visit the CDC website for a list of frequently asked questions. https://www.cdc.gov/coronavirus/2 019-ncov/vaccines/faq.html [facility] Patient Portal Access Instructions: Stay connected with your healthcare team and access your personal medical information anytime with the [facility] Patient Portal. If you would like a full copy of your medical records please contact the [facility] Medical Records Department Wednesday through Wednesday between 8a.m. and 4:30p.m. Please follow the directions below to access the portal: 1.Access the email account you provided upon registration to the [facility].2.Look for an invitation email from [facility].3.Open the email and access the invitation link: Accept Invitation to [facility]4.Fill in the required tripathi to create your account. Sign into [email or web address].[email or web address] retargeting with your username and password that you created in the above steps to stay up to date. You can then view a summary of results, a summary of your visits, and the ability to download your summaries to your computer or send the information securely to a physician. Remember that your healthcare information is confidential, so carefully consider who you will allow to register on the [facility] Patient Portal for access to your information. You can also access the [facility] Patient Portal on the [facility] yecenia. Simply click on Health Records under Health Data and then click on the [employer] logo. HOW TO SAFELY DISPOSE OF PRESCRIPTION MEDICATIONS Please use one of the following methods to safely dispose of your unused medications. 1.Use a drug disposal kit: the drug disposal pouch allows you to safely discard your old and unused drugs. Ask your nurse to give you one when you are discharged.2.Visit a local take-back location: Many local pharmacies and police departments have programs that collect old and unwanted prescription drugs. Call your local pharmacy or go to http://OpenDoors.su.slinkset/1M6Cm4q to find one close to you.3.Make use of household items: Use cat litter or old coffee grounds to dispose medications if other options are not available. Mix your drugs with these household products, seal them in an airtight container and throw it into the garbage. Call [facility]: [phone] to be sure your drugs can be disposed of in this way. Some medicines may require a different approach.4.Never flush your medications down the toilet. IF YOU HAVE BEEN PRESCRIBED AN OPIOIDS FOR PAIN If you have been prescribed an opioid (such as hydrocodone, oxycodone or morphine), it is critical to understand the possible side effects and risks of opioid pain medications. Even when taken as directed, opioids can have several side effects including: Tolerance, meaning you might need to take more of a medication for the same pain relief. Nausea, vomiting and/or constipation. Sleepiness, dizziness, dry mouth, confusion, depression or itching. Physical dependence, meaning you have withdrawal symptoms when a medication is stopped ? this can develop within a few days. KNOW YOUR RESPONSIBILITIES It is important to know exactly how much and how often to take the opioid pain medications you are prescribed. Never take opioids in higher amounts or more often than prescribed. Do not combine opioids with alcohol or other drugs that cause drowsiness, such as benzodiazepines, also known as benzos, including diazepam and alprazolam, muscle relaxants or sleep aids. Never sell or share prescription opioids. This is illegal. Store opioids in a secure place and out of reach of others (including children, family, friends and visitors). The last page(s) of this document has been signed and retained as a CHART COPY Signatures Patient Education Materials Wrist Sprain Medication Leaflets My discharge plan and instructions have been reviewed and explained to me and JOSE Li MALLORIE M understand my current condition and have read and understand these discharge instructions. I have received a written copy of the plan/instructions. If I have questions, I am aware that I should contact my doctor. 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 No obvious soft tissue abnormality. No radiopaque foreign body. IMPRESSION: No acute osseous abnormality identified. I have personally reviewed the images of this examination and agree with the resident's finding and interpretation. Interpreted by: Farheen Harrison MD Preliminary Report By: Galo Nielson Electronically signed By Farheen Harrison MD Dictated Date: 06/05/2023 7:48:22 PM Prelim Date: 06/05/2023 7:49:28 PM Sign Date: 06/05/2023 8:01:16 PM Ordering Provider: [facility] 06-05-2023 Note ORIGINAL EXAMINATION: THREE XRAY VIEWS OF THE RIGHT HAND06/05/2023 7:43 pm COMPARISON: None HISTORY: ORDERING SYSTEM PROVIDED HISTORY: Reason for Exam: Right hand pain for 5 days. No known injury. FINDINGS: No acute fracture or dislocation. No significant soft tissue abnormality. No radiopaque foreign body. IMPRESSION: No acute osseous abnormality identified. I have personally reviewed the images of this examination and agree with the resident's finding and interpretation. Interpreted by: Farheen Harrison MD Preliminary Report By: Galo Nielson Electronically signed By Farheen Harrison MD Dictated Date: 06/05/2023 7:46:40 PM Prelim Date: 06/05/2023 7:48:13 PM Sign Date: 06/05/2023 8:00:54 PM Ordering Provider: [facility] 03-05-2023 Hospital Discharg e instructions Patient Education 03/05/2023 21:32:53 Asthma, Acute (Adult) Asthma (Adult) Asthma is a disease where the medium and small air passages within the lung go into spasm and restrict the flow of air. Inflammation and swelling of the airways cause further blockage. During an acute asthma attack, these factors cause trouble breathing, wheezing, cough and chest tightness. An asthma attack can be triggered by many things. Common triggers include infections such as the common cold, bronchitis, and pneumonia. Irritants such as smoke or pollutants in the air, very cold air, emotional upset, and exercise can also trigger an attack. In many adults with asthma, allergies to dust, mold, pollen and animal dander can cause an asthma attack. Skipping doses of daily asthma medicine can also bring on an asthma attack. Asthma can be controlled using the proper medicines prescribed by your healthcare provider and avoiding exposure to known triggers including allergens and irritants. Home care Take prescribed medicine exactly at the times advised. If you need medicine such as from a hand held inhaler or aerosol breathing machine more than every 4 hours, contact your healthcare provider or seek immediate medical attention. If prescribed an antibiotic or prednisone, take all of the medicine as prescribed, even if you are feeling better after a few days. Don't smoke. Avoid being exposed to the smoke of others. Some people with asthma have worsening of their symptoms when they take aspirin and non-steroidal or fever-reducing medicines like ibuprofen and naproxen. Talk to your healthcare provider if you think this may apply to you. Follow-up care Follow up with your healthcare provider, or as advised. Always bring all of your current medicines to any appointments with your healthcare provider. Also bring a complete list of medicines even those not taken for asthma. If you don't already have one, talk to your healthcare provider about developing your own Asthma Action Plan. A pneumococcal (pneumonia) vaccine and yearly flu shot (every fall) are recommended. Ask your doctor about this. When to seek medical advice Call your healthcare provider right away if any of these occur: Increased wheezing or shortness of breath Need to use your inhalers more often than usual without relief Fever of 100.4 F (38 C) or higher, or as directed by your healthcare provider Coughing up lots of dark-colored or bloody sputum (mucus) Chest pain with each breath If you use a peak flow meter as part of an Asthma Action Plan, and you are still in the yellow zone (50% to 80%) 15 minutes after using inhaler medicine. Call 911 Call 911 if any of the following occur Trouble walking or talking because of shortness of breath If you use a peak flow meter as part of an Asthma Action Plan and you are still in the red zone (less than 50%) 15 minutes after using inhaler medicine Lips or fingernails turning bradley or blue [phone] [employer]. [address] [place] [address], [place] [address]. All rights reserved. This information is not intended as a substitute for professional medical care. Always follow your healthcare professional's instructions. Follow Up Care 03/05/2023 20:23:51 With:ALEX ORTEGA MD, Pediatric Allergy Address: [address] [place] [id number]- When:2-4 days [facility] 03-05-2023 Note Discharge Instructions Thank you for allowing [facility] to assist you with your healthcare needs. The following is important discharge information regarding your hospital visit. Diagnosis from Today's Visit Asthma Cough Productive cough What to Do Next Instructions from Your Care Team No qualifying data available. Post Acute Orders No qualifying data available. You Need to Schedule the Following Appointments Follow Up with ALEX ORTEGA MD, Pediatric Allergy When Within 2-4 days Where: [address] [place] [id number]- Allergies Reglan Medications Please ask your primary doctor or pharmacist before taking any other medication not listed, including over the counter drugs, herbal medications, vitamins and or supplements as they may interact with your home medications. What How Much When Why Instructions Last Dose New doxycycline (doxycycline hyclate 100 mg oral capsule) 1 cap by mouth Two (2) times a day Duration: 7 Days Printed Prescription Changed predniSONE (predniSONE 10 mg oral tablet) 3 by mouth Two (2) times a day Coxsackie virus exanthem Hand foot and mouth disease 6 po 1st dose then 3 po q12 Changed predniSONE (predniSONE 20 mg oral tablet) 3 tab(s) by mouth Once a day Duration: 4 Days Printed Prescription Unchanged amoxicillin-clavulanate (Augmentin) Unchanged fluticasone nasal (Flonase 50 mcg/ inh nasal spray) 1 spray(s) in the nose Two (2) times a day Eustachian tube disorder in each nostril Unchanged lidocaine topical (Lidoderm 5% topical patch) 1 patch(es) Transdermal Once a day Unchanged Misc Medication Unchanged sulfaSALAzine 1,000 Milligram by mouth Two (2) times a day Unchanged SUMAtriptan (Imitrex) Once Please take this list to your next doctor s visit. Bring all medications you take, including over the counter medications, herbals and other supplements with you to your doctor s visit. Patients and families are reminded to discard old lists and to update any records with all medication providers or retail pharmacies. Education Materials Asthma (Adult) Asthma is a disease where the medium and small air passages within the lung go into spasm and restrict the flow of air. Inflammation and swelling of the airways cause further blockage. During an acute asthma attack, these factors cause trouble breathing, wheezing, cough and chest tightness. An asthma attack can be triggered by many things. Common triggers include infections such as the common cold, bronchitis, and pneumonia. Irritants such as smoke or pollutants in the air, very cold air, emotional upset, and exercise can also trigger an attack. In many adults with asthma, allergies to dust, mold, pollen and animal dander can cause an asthma attack. Skipping doses of daily asthma medicine can also bring on an asthma attack. Asthma can be controlled using the proper medicines prescribed by your healthcare provider and avoiding exposure to known triggers including allergens and irritants. Home care Take prescribed medicine exactly at the times advised. If you need medicine such as from a hand held inhaler or aerosol breathing machine more than every 4 hours, contact your healthcare provider or seek immediate medical attention. If prescribed an antibiotic or prednisone, take all of the medicine as prescribed, even if you are feeling better after a few days. Don't smoke. Avoid being exposed to the smoke of others. Some people with asthma have worsening of their symptoms when they take aspirin and non-steroidal or fever-reducing medicines like ibuprofen and naproxen. Talk to your healthcare provider if you think this may apply to you. Follow-up care Follow up with your healthcare provider, or as advised. Always bring all of your current medicines to any appointments with your healthcare provider. Also bring a complete list of medicines even those not taken for asthma. If you don't already have one, talk to your healthcare provider about developing your own Asthma Action Plan. A pneumococcal (pneumonia) vaccine and yearly flu shot (every fall) are recommended. Ask your doctor about this. When to seek medical advice Call your healthcare provider right away if any of these occur: Increased wheezing or shortness of breath Need to use your inhalers more often than usual without relief Fever of 100.4 F (38 C) or higher, or as directed by your healthcare provider Coughing up lots of dark-colored or bloody sputum (mucus) Chest pain with each breath If you use a peak flow meter as part of an Asthma Action Plan, and you are still in the yellow zone (50% to 80%) 15 minutes after using inhaler medicine. Call 911 Call 911 if any of the following occur Trouble walking or talking because of shortness of breath If you use a peak flow meter as part of an Asthma Action Plan and you are still in the red zone (less than 50%) 15 minutes after using inhaler medicine Lips or fingernails turning bradley or blue [phone] [employer]. [address] [place] [address], [place] [address]. All rights reserved. This information is not intended as a substitute for professional medical care. Always follow your healthcare professional's instructions. Additional Information VACCINATE! IT SAVES LIVES! Members of the community who have not yet received the COVID-19 vaccine and would like to receive it can visit one of [facility] vaccine clinics. There are many vaccine clinic locations within the [facility]. For locations and available times, please visit [email or web address] It is important to note that some COVID mobile vaccine clinics are held outdoors and may be canceled in rainy or stormy conditions. To learn more about pediatric vaccinations (ages 5-11), we invite you to visit the [facility] webpage. https://www.[email or web address].org/pa ges/1634-Dfmif-Bhohmslrnyz-Freque awtq-Yrsfm-Snplcjogl.html To learn more about the COVID-19 vaccine, we invite you to visit the CDC website for a list of frequently asked questions. https://www.cdc.gov/coronavirus/2 019-ncov/vaccines/faq.html [facility] Patient Portal Access Instructions: Stay connected with your healthcare team and access your personal medical information anytime with the [facility] Patient Portal. If you would like a full copy of your medical records please contact the [facility] Medical Records Department Wednesday through Wednesday between 8a.m. and 4:30p.m. Please follow the directions below to access the portal: 1.Access the email account you provided upon registration to the [facility].2.Look for an invitation email from [facility].3.Open the email and access the invitation link: Accept Invitation to [facility]4.Fill in the required tripathi to create your account. Sign into [email or web address] with your username and password that you created in the above steps to stay up to date. You can then view a summary of results, a summary of your visits, and the ability to download your summaries to your computer or send the information securely to a physician. Remember that your healthcare information is confidential, so carefully consider who you will allow to register on the [facility] Patient Portal for access to your information. You can also access the [facility] Patient Portal on the [employer] yecenia. Simply click on Health Records under Health Data and then click on the [facility] logo. HOW TO SAFELY DISPOSE OF PRESCRIPTION MEDICATIONS Please use one of the following methods to safely dispose of your unused medications. 1.Use a drug disposal kit: the drug disposal pouch allows you to safely discard your old and unused drugs. Ask your nurse to give you one when you are discharged.2.Visit a local take-back location: Many local pharmacies and police departments have programs that collect old and unwanted prescription drugs. Call your local pharmacy or go to http://OpenDoors.su.slinkset/7F6Gt2h to find one close to you.3.Make use of household items: Use cat litter or old coffee grounds to dispose medications if other options are not available. Mix your drugs with these household products, seal them in an airtight container and throw it into the garbage. Call [facility]: [phone] to be sure your drugs can be disposed of in this way. Some medicines may require a different approach.4.Never flush your medications down the toilet. IF YOU HAVE BEEN PRESCRIBED AN OPIOIDS FOR PAIN If you have been prescribed an opioid (such as hydrocodone, oxycodone or morphine), it is critical to understand the possible side effects and risks of opioid pain medications. Even when taken as directed, opioids can have several side effects including: Tolerance, meaning you might need to take more of a medication for the same pain relief. Nausea, vomiting and/or constipation. Sleepiness, dizziness, dry mouth, confusion, depression or itching. Physical dependence, meaning you have withdrawal symptoms when a medication is stopped ? this can develop within a few days. KNOW YOUR RESPONSIBILITIES It is important to know exactly how much and how often to take the opioid pain medications you are prescribed. Never take opioids in higher amounts or more often than prescribed. Do not combine opioids with alcohol or other drugs that cause drowsiness, such as benzodiazepines, also known as benzos, including diazepam and alprazolam, muscle relaxants or sleep aids. Never sell or share prescription opioids. This is illegal. Store opioids in a secure place and out of reach of others (including children, family, friends and visitors). The last page(s) of this document has been signed and retained as a CHART COPY Signatures Patient Education Materials Asthma, Acute (Adult) Medication Leaflets My discharge plan and instructions have been reviewed and explained to me and IJOSE MALLORIE M understand my current condition and have read and understand these discharge instructions. I have received a written copy of the plan/instructions. If I have questions, I am aware that I should contact my doctor. 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 There is no focal consolidation. There is no pulmonary edema. There is no evidence of pleural effusion. There is no evidence of pneumothorax. No acute fracture is identified. IMPRESSION: No acute abnormality is identified. Interpreted by: David Loyola Preliminary Report By: David Loyola Electronically signed By David Loyola Dictated Date: 03/05/2023 9:19:14 PM Prelim Date: 03/05/2023 9:19:52 PM Sign Date: 03/05/2023 9:19:52 PM Ordering Provider: ENRICO HAJI [facility] 11-20-2022 Discharge summary Note Date/Time November 20, 2022 8:44pm [facility] [address] [place] [id number] HEALTH INFORMATION MANAGEMENT EMERGENCY DEPARTMENT : [phone] Signed Patient: HEMANT GARCIA Acct:[id number] MRUN: [id number] : 1990 Sex: F Loc: ED AD M Date: 11/20/22 Room/Bed: DISC Date: History of Present Illness - General Chief Complaint: Cardiac complaints Stated Complaint: HEART PALPITATIONS Symptom onset: nausea and vomiting since 0600, chest pain on way to ED Time Seen by Provider: 11/20/22 20:26 Source: Patient, Family Mode of Transport: Ambulatory - History of Present Illness Initial Comments: Patient has a history of vertigo. She says she has been dizzy with a sense of spinning all day today. This is caused her to vomit all day also. Patient has been feeling heart palpitations with this. She feels like her heart is has a very hard beat every once while. She denies any chest pain to me but told the nurse she had some chest discomfort on the way to the hospital. She denies any fevers or abdominal pain. No diarrhea. MD Complaint: Complains of: dizziness Onset/Timin -: hour(s) Timing: sudden onset, waxing/waning Description: sense of movement, room spinning History of Trauma: No Severity: moderate Improves With: Complains of: remaining still, rest Worsens With: Complains of: movement, position Associated Symptoms: Complains of: chest pain, loss of appetite, nausea, vomiting. Denies: fever/chills, shortness of breath, weakness, GI bleed Review of System - Constitutional Constitutional: Present: Well developed, Well nourished, Non-toxic - Nose,Throat,Mouth Nose (ROS): Absent: pain Throat: Absent: pain, swelling, discharge Mouth: Absent: pain, swelling - Respiratory Respiratory: Absent: cough, short of breath, wheezing - CV Cardiology: Present: palpitations. Absent: chest pain, edema - GI Gastrointestinal/Abdominal: Present: nausea, vomiting. Absent: abdominal pain, diarrhea - Genitourinary Symptoms: Absent: dysuria - Neuro Neurological: Absent: headache, weakness - Muskuloskeletal Musculoskeletal: Absent: back pain, joint pain, joint swelling - Integumentary Skin: Absent: lesions, rash - Allergic/Immunologic Immunological/Allergic: Present: no symptoms reported - Hematologic Hematologic/Lymphatic: Absent: easy bleeding, easy bruising, swollen glands - Endocrine Endocrine: Present: no symptoms reported - Psychiatric Psychiatric: Present: Normal Affect, Normal Mood. Absent: Depressed - All Others/Exceptions All Other Systems: Reviewed and Negative Except Where Noted in Documentation ED PMH/Social HX/Family HX - Respiratory Hx Respiratory Disorders: No - Cardiovascular Hx Cardiac Disorders: No - Neurological Hx Neurological Disorder: No - Gastrointestinal Hx Gastrointestinal Disorders: Yes PMH--Gastrointestinal: Celiac Disease - Musculoskeletal PMH--Musculoskeletal: Rheumatoid Arthritis - Reproductive ?: No - HEENT Hx Ear, Nose Throat Disorders: No - Social History Able to Read: Yes Able to Write: Yes Smoking Status: Light Smoker (<10 cig/day) Hx Chewing Tobacco Use: No Alcohol Use: Never Any recreational drug use reported?: No Feels Threatened In Home Environment: No Feels Threatened In a Relationship: No - [place]-Suicide Severity Rating Scale 1) Wish to be :: No 2) Suicidal Thoughts:: No 6) Suicidal Behavior Question (A): LIFETIME: No 6) Suicidal Behavior Question (B): PAST 3 MONTHS: No General Exam - General Limitations: Complains of: no limitations Constitutional: Present: no symptoms reported - Head Head exam: Present: atraumatic, normocephalic - Eye Eye exam: Present: normal apperance, EOMI Pupils: Present: PERRL - ENT ENT exam: Present: normal orophraynx, mucous membranes moist, Posterior Pharynx Non-erethemetous - Neck Neck exam: Present: full ROM, Supple. Absent: tenderness, meningismus - Respiratory Respiratory exam: Present: lungs clear and equal bilaterally. Absent: respiratory distress, decreased breath sounds - Cardiovascular Cardiovascular Exam: Present: regular rate, normal rhythm - GI/Abdominal GI/Abdominal exam: Present: soft, non tender - Extremities Exam Extremities exam: Present: normal inspection, neurovascularly intact, full ROM - Back Exam Back exam: Present: normal inspection, full ROM - Neurological Exam Neurological exam: Present: alert, oriented X3 - Psychiatric Psychiatric exam: Present: normal affect - Skin Skin Color: Present: Normal, [place] Skin exam: Present: warm, dry, intact - Vital Signs Vital Signs 11/20/22 11/20/22 20:16 22:36 Temperature 97.4 F Pulse Rate [ 95 89 Pulse Ox] Respiratory 22 H 18 Rate Blood Pressure 135/71 101/62 [Left Arm] O2 Sat by Pulse 97 98 Oximetry(%) ED MDM Dizziness/Weakness - Lab Data Result diagrams: 11/20/22 20:45 11/20/22 20:45 Lab Results 11/20/22 11/20/22 11/20/22 Range/Units 20:45 20:45 20:45 WBC 6.7 (3.6-10.8) K/uL RBC 4.59 (3.83-5.19) M/uL Hgb 12.1 (11.1-13.7) g/dL Hct 36.4 (33.4-46.0) % MCV 79.3 L (81.0-99.0) fL MCH 26.4 L (27.0-31.0) pg MCHC 33.2 (33.0-37.0) g/dL RDW 13.5 (11.5-14.5) % Plt Count 204 (148-402) K/uL MPV 10.1 (7.4-10.4) fL Neut % (Auto) 84.6 H (43.0-65.0) % Lymph % (Auto) 10.6 L (17.0-45.5) % Foster % (Auto) 3.9 L (5.5-11.7) % Eos % (Auto) 0.7 L (0.9-2.9) % Baso % (Auto) 0.1 L (0.2-1.0) % Abs Immat Gran (man) 0.01 (0.00-0.10) K/uL Absolute Neuts (auto) 5.64 H (2.20-4.80) K/uL Absolute Lymphs (auto) 0.70 L (1.30-2.90) K/uL Absolute Monos (auto) 0.30 (0.30-0.80) K/uL Absolute Eos (auto) 0.10 (0.00-0.20) K/uL Absolute Basos (auto) 0.01 (0.00-0.10) K/uL Immature Gran % 0.10 (0.00-1.00) % Sodium 142 (132-145) mmol/L Potassium 3.4 (3.3-5.1) mmol/L Chloride 105 (94-110) mmol/L Total Carbon Dioxide 26 (21-34) mmol/L Anion Gap 14.4 (8.0-16.0) mmol/L BUN 9.6 (3.2-26.9) mg/dL Creatinine 0.95 (0.51-0.95) mg/dL Est GFR (MDRD) Af Amer > 60 (>60) Est GFR (MDRD) Non-Af > 60 (>60) BUN/Creatinine Ratio 10 (6-20) Glucose 102 H (65-100) mg/dL Calcium 8.4 (8.2-10.0) mg/dL Total Bilirubin 0.50 (0.00-0.99) mg/dL AST 22 (3-39) U/L ALT 33 (13-66) U/L Alkaline Phosphatase 102 (54-112) U/L Troponin I High Sens 4 (0-51) ng/L Troponin I Hi Sens Del % Troponin I Hi Sens Abs Chng ng/L Total Protein 7.5 (6.1-8.2) g/dL Albumin 3.6 (3.4-5.0) g/dL Globulin 3.9 (1.5-4.5) g/dL Albumin/Globulin Ratio 0.9 L (1.1-2.5) Beta HCG, Quant < 1 mIU/mL 11/20/22 Range/Units 22:27 WBC (3.6-10.8) K/uL RBC (3.83-5.19) M/uL Hgb (11.1-13.7) g/dL Hct (33.4-46.0) % MCV (81.0-99.0) fL MCH (27.0-31.0) pg MCHC (33.0-37.0) g/dL RDW (11.5-14.5) % Plt Count (148-402) K/uL MPV (7.4-10.4) fL Neut % (Auto) (43.0-65.0) % Lymph % (Auto) (17.0-45.5) % Foster % (Auto) (5.5-11.7) % Eos % (Auto) (0.9-2.9) % Baso % (Auto) (0.2-1.0) % Abs Immat Gran (man) (0.00-0.10) K/uL Absolute Neuts (auto) (2.20-4.80) K/uL Absolute Lymphs (auto) (1.30-2.90) K/uL Absolute Monos (auto) (0.30-0.80) K/uL Absolute Eos (auto) (0.00-0.20) K/uL Absolute Basos (auto) (0.00-0.10) K/uL Immature Gran % (0.00-1.00) % Sodium (132-145) mmol/L Potassium (3.3-5.1) mmol/L Chloride (94-110) mmol/L Total Carbon Dioxide (21-34) mmol/L Anion Gap (8.0-16.0) mmol/L BUN (3.2-26.9) mg/dL Creatinine (0.51-0.95) mg/dL Est GFR (MDRD) Af Amer (>60) Est GFR (MDRD) Non-Af (>60) BUN/Creatinine Ratio (6-20) Glucose (65-100) mg/dL Calcium (8.2-10.0) mg/dL Total Bilirubin (0.00-0.99) mg/dL AST (3-39) U/L ALT (13-66) U/L Alkaline Phosphatase (54-112) U/L Troponin I High Sens 4 (0-51) ng/L Troponin I Hi Sens Del 0 % Troponin I Hi Sens Abs Chng 0 ng/L Total Protein (6.1-8.2) g/dL Albumin (3.4-5.0) g/dL Globulin (1.5-4.5) g/dL Albumin/Globulin Ratio (1.1-2.5) Beta HCG, Quant mIU/mL Orders: Medications Discontinued Medications Sodium Chloride (Sodium Chloride 0.9 % 1000 Ml) 1,000 mls @ 999 mls/hr IV .Q1H1M STA Stop: 11/20/22 21:41 Last Admin: 11/20/22 20:58 Dose: 999 mls/hr Documented by: [email or web address] Promethazine HCl 12.5 mg/ (Sodium Chloride) 50.5 mls @ 202 mls/hr IVPB STAT STA Stop: 11/20/22 20:55 Last Infusion: 11/20/22 22:29 Dose: 202 mls/hr, 202 mls/hr Documented by: [email or web address] Lorazepam (Lorazepam 2 Mg/Ml Injection) 1 mg IVP STAT STA Stop: 11/20/22 22:25 Last Admin: 11/20/22 22:30 Dose: 1 mg Documented by: [email or web address] Meclizine HCl (Meclizine Hcl 12.5 Mg Tablet) 25 mg PO ONE ONE Stop: 11/20/22 22:25 Last Admin: 11/20/22 22:29 Dose: 25 mg Documented by: [email or web address] Labs 11/20/22 20:14 12-Lead per nursing [RC] STAT EKG [CAR] Stat 11/20/22 20:41 Normal Saline 0.9% 1000 ml [Sodium Chloride 0.9 % 1000 ml] 1,000 ml IV 999 mls/hr Promethazine HCl [Phenergan 25 mg/ml Injection] 12.5 mg Normal Saline [Sodium Chloride 0.9 % 50 ml] 50 ml IVPB STAT 11/20/22 20:45 CBC w/Auto Differential [HEM] Stat Comprehensive Metabolic Panel [CHM] Stat HCG Quant [CHM] Stat High Sensitivity Troponin I* [CHM] Stat 11/20/22 22:24 Lorazepam [Ativan 2 mg/ml Injection] 1 mg IVP STAT STA Meclizine HCl [Antivert 12.5 mg Tablet] 25 mg PO ONE ONE 11/20/22 22:27 High Sensitivity Troponin I* [CHM] Routine Interpretation: normal EKG - Radiology Data IMPRESSIONS Electrocardiogram 11/20/22 20:14 [facility] ED Test Date: 2022-11-20 Test Time: 20:19:58 Pat Name: HEMANT GARCIA Department: Room: Gender: F 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 Nausea is resolved. Dizziness is minimal. Patient feels well enough to go home. She is a history of vertigo. We will prescribe her meclizine for home. She return to ER for any worsening symptoms. ED Discharge Summary - Discharge Data Clinical Impression: Vertigo, Vomiting Condition: Good Disposition: 01 HOME / SELF CARE Referrals: JESSICA RUSSELL PA-C [PHYSICIAN MEDICAL RESEARCH SCIENTIST] - In 3 days Time Seen by Provider: 11/20/22 20:26 Electronically Generated By:NEGRO GARBER MD Generated Date/Time: 11/20/222042 Electronically Signed By: NEGRO GARBER MD Signed Date/Time 11/20/222309 Co Signed Electronically By: Stephanie Signed Date/Time: CC: ALEX ORTEGA [facility] Work Phone: [phone]) 500-383201-30-2023 Hospital Discharge instructions Patient Education 09/07/2022 10:15:02 Common Middle Ear Problems Common Middle Ear Problems Your middle ear may have been injured or infected recently. Over time, certain growths or bone disease can also harm the middle ear. Left untreated, middle ear problems often lead to lifelong hearingloss. There are two types of hearing loss: conductive and sensorineural. One or both kinds can occur. Injury, infection, certain growths, or bone disease can cause your symptoms. A ruptured eardrum or a long-lasting (chronic) ear infection may be painful and decrease hearing. Symptoms Hearing loss in one or both ears Fluid, often smelly, draining from the ear Pain, pressure, or discomfort in the ear Ringing in the ear Conductive and sensorineural hearing loss Sound waves may be disrupted before they reach the inner ear. If this happens, conductive hearing loss may occur. The ear canal can be blocked by wax, infection, a tumor, or a foreign object. The eardrum can be injured or infected. Abnormal bone growth, infection, or tumors in the middle ear can block sound waves. Sound waves may not be processed correctly in the inner ear. If this happens, sensorineural hearingloss may occur. Permanent hearing loss is most commonly associated with sensorineural problems. The tests and evaluations used to diagnose what type of hearing problem you have will depend on your symptoms. 3738-3103 [employer]. [address] [place] [address], [place] [address]. All rights reserved. This information is not intended as a substitute for professional medical care. Always follow yourhealthcare professional's instructions. Follow Up Care 09/07/2022 09:51:26 With:ALEX ORTEGA MD, Pediatric Allergy Address: [address] [place] [id number]- When:2-4 days With:Go to emergency room if symptoms worsen Address:Unknown When:2-4 days [facility] 01-30-2023 Note Discharge Instructions Thank you for allowing [facility] to assist you with your healthcare needs. The following is importantdischarge information regarding your hospital visit. Diagnosis from Today's Visit Eustachian tube disorder Earache What to Do Next Instructions from Your Care Team No qualifying data available. Post Acute Orders No qualifying data available. You Need to Schedule the Following Appointments Follow Up with ALEX ORTEGA MD, Pediatric Allergy When Within 2-4 days Where: [address] [place] [id number]- Follow Up with Go to emergency room if symptoms worsen When Within 2-4 days Allergies Reglan Medications Please ask your primary doctor or pharmacist before taking any other medication not listed, including over the counter drugs, herbal medications, vitamins and or supplements as they may interact withyour home medications. What How Much When Why Instructions Last Dose New amoxicillin (amoxicillin 875 mg oral tablet) 1 tab(s) by mouth Two (2) times a day Eustachian tube disorder Printed Prescription New fluticasone nasal (Flonase 50 mcg/ inh nasal spray) 1 spray(s) in the nose Two (2) times a day Eustachian tube disorder in each nostril Printed Prescription Unchanged amoxicillin-clavulanate (Augmentin) Unchanged lidocaine topical (Lidoderm 5% topical patch) 1 patch(es) Transdermal Once a day Unchanged Misc Medication Unchanged predniSONE (predniSONE 10 mg oral tablet) 3 by mouth Two (2) times a day Coxsackie virus exanthem Hand foot and mouth disease 6 po 1st dose then 3 po q12 Unchanged sulfaSALAzine 1,000 Milligram by mouth Two (2) times a day Unchanged SUMAtriptan (Imitrex) Once Please take this list to your next doctor s visit. Bring all medications you take, including over the counter medications, herbals and other supplements with you to your doctor s visit. Patients and families are reminded to discard old lists and to update any records with all medication providers or retail pharmacies. Medication Leaflets amoxicillin (am OX i greg in) What is the most important information I should know about amoxicillin? You should not use this medicine if you are allergic to any penicillin antibiotic. What is amoxicillin? Amoxicillin is a penicillin antibiotic that is used to treat many different types of infection caused by bacteria, such as tonsillitis, bronchitis, pneumonia, and infections of the ear, nose, throat,skin, or urinary tract. Amoxicillin is also sometimes used together with another antibiotic called clarithromycin (Biaxin) to treat stomach ulcers caused by Helicobacter pylori infection. This combination is sometimes used with a stomach acid ore grader called lansoprazole (Prevacid). Amoxicillin may also be used for purposes not listed in this medication guide. What should I discuss with my healthcare provider before taking amoxicillin? You should not use this medicine if you are allergic to any penicillin antibiotic, such as ampicillin, dicloxacillin, oxacillin, penicillin, or ticarcillin. Tell your doctor if you have ever had: kidney disease; mononucleosis (also called 'mono'); diarrhea caused by taking antibiotics; or food or drug allergies (especially to a cephalosporin antibiotic such as Omnicef, Cefzil, Ceftin, Keflex, and others). It is not known whether this medicine will harm an unborn baby. Tell your doctor if you are or plan to become . Amoxicillin can make control pills less effective. Ask your doctor about using a non-hormonalbirth control (condom, diaphragm, cervical cap, or contraceptive sponge) to prevent . It may not be safe to breastfeed while using this medicine. Ask your doctor about any risk. How should I take amoxicillin? Follow all directions on your prescription label and read all medication guides or instruction sheets. Use the medicine exactly as directed. Take this medicine at the same time each day. Some forms of amoxicillin may be taken with or without food. Check your medicine label to see if you should take your amoxicillin with food or not. Shake the oral suspension (liquid) before you measure a dose. Measure liquid medicine with the dosing syringe provided, or use a medicine dose-measuring device (not a kitchen spoon). You may mix the liquid with water, milk, baby formula, fruit juice, or verenice arlene. Drink all of the mixture right away. Do not save for later use. You must chew the chewable tablet before you swallow it. Swallow the regular tablet whole and do not crush, chew, or break it. You will need frequent medical tests. If you are taking amoxicillin with clarithromycin and/or lansoprazole to treat stomach ulcer, use all of your medications as directed. Read the medication guide or patient instructions provided with each medication. Do not change your doses or medication schedule without your doctor's advice. Use this medicine for the full prescribed length of time, even if your symptoms quickly improve. Skipping doses can increase your risk of infection that is resistant to medication. Amoxicillin will not treat a viral infection such as the flu or a common cold. Do not share this medicine with another person, even if they have the same symptoms you have. This medicine can affect the results of certain medical tests. Tell any doctor who treats you that you are using amoxicillin. Store at room temperature away from moisture, heat, and light. You may store liquid amoxicillin in a refrigerator but do not allow it to freeze. Throw away any liquid amoxicillin that is not used within 14 days after it was mixed at the pharmacy. What happens if I miss a dose? Skip the missed dose and use your next dose at the regular time. Do not use two doses at one time. What happens if I overdose? Seek emergency medical attention or call the Poison Help line at . What should I avoid while taking amoxicillin? Antibiotic medicines can cause diarrhea, which may be a sign of a new infection. If you have diarrhea that is watery or bloody, call your doctor before using anti-diarrhea medicine. What are the possible side effects of amoxicillin? Get emergency medical help if you have signs of an allergic reaction (hives, difficult breathing, swelling in your face or throat) or a severe skin reaction (fever, sore throat, burning eyes, skin pain, red or purple skin rash with blistering and peeling). Call your doctor at once if you have: severe stomach pain; or diarrhea that is watery or bloody (even if it occurs months after your last dose). Common side effects may include: nausea, vomiting, diarrhea; or rash. This is not a complete list of side effects and others may occur. Call your doctor for medical advice about side effects. You may report side effects to FDA at 8-336-UDU-9981. What other drugs will affect amoxicillin? Tell your doctor about all your other medicines, especially: any other antibiotics; allopurinol; probenecid; or a blood thinner--warfarin, Coumadin, Jantoven. This list is not complete. Other drugs may affect amoxicillin, including prescription and [id number] medicines, vitamins, and herbal products. Not all possible drug interactions are listed here. Where can I get more information? Your pharmacist can provide more information about amoxicillin. Remember, keep this and all other medicines out of the reach of children, never share your medicines with others, and use this medication only for the indication prescribed. Every effort has been made to ensure that the information provided by [employer]') is accurate, up-to-date, and complete, but no guarantee is made to that effect. Drug information contained herein may be time sensitive. [employer] information has been compiled for use by healthcare practitioners and consumers in the [place] and therefore [employer] does not warrant that uses outside of the [place] are appropriate, unless specifically indicated otherwise. [employer] drug information does not endorse drugs, diagnose patients or recommend therapy. [employer] drug information isan informational resource designed to assist licensed healthcare practitioners in caring for their p atients and/or to serve consumers viewing this service as a supplement to, and not a substitute for, the expertise, skill, knowledge and judgment of healthcare practitioners. The absence of a warningfor a given drug or drug combination in no way should be construed to indicate that the drug or drug combination is safe, effective or appropriate for any given patient. [facility] does not assume any responsibility for any aspect of healthcare administered with the aid of information [facility] provides. The information contained herein is not intended to cover all possible uses, directions, precautions, warnings, drug interactions, allergic reactions, or adverse effects. If you have questions about the drugs you are taking, check with your doctor, nurse or pharmacist. Copyright 1290-5885 [facility]. Version: 10.. Revision Date: 07/04/2019. fluticasone nasal (floo TIK a sone) Flonase, Veramyst, Xhance What is the most important information I should know about fluticasone nasal? Follow all directions on your medicine label and package. Tell each of your healthcare providers about all your medical conditions, allergies, and all medicines you use. What is fluticasone nasal? Fluticasone nasal (for the nose) is a steroid medicine that is used to treat nasal congestion, sneezing, runny nose, and itchy or watery eyes caused by seasonal or year-round allergies. The Xhance brand of this medicine is for use only in adults. Veramyst may be used in children as young as 2 years old. Flonase is for use in adults and children who are at least 4 years old. Fluticasone nasal may also be used for purposes not listed in this medication guide. What should I discuss with my healthcare provider before using fluticasone nasal? You should not use fluticasone nasal if you are allergic to it. Fluticasone can weaken your immune system, making it easier for you to get an infection or worsening an infection you already have or recently had. Tell your doctor about any illness or infection youhave had within the past several weeks. Tell your doctor if you have ever had: sores or ulcers inside your nose; injury of or surgery on your nose; glaucoma or cataracts; liver disease; diabetes; a weak immune system; or any type of infection (bacterial, fungal, viral, or parasitic). If you use fluticasone nasal without a prescription and you have any medical conditions, ask a doctor or pharmacist if this medicine is safe for you. Tell your doctor if you are or breast-feeding. How should I use fluticasone nasal? Follow all directions on your prescription label and read all medication guides or instruction sheets. Use the medicine exactly as directed. Do not share this medicine with another person, even if they have the same symptoms you have. Your dose will depend on the fluticasone brand or strength you use, and your dose may change once your symptoms improve. Follow all dosing instructions very carefully. A child using the nasal spray should be supervised by an adult. Read and carefully follow any Instructions for Use provided with your medicine. Ask your doctor or pharmacist if you do not understand these instructions. Shake the nasal spray just before each use. If you switched to fluticasone from another steroid medicine, you should not stop using it suddenly. Follow your doctor's instructions about tapering your dose. It may take several days before your symptoms improve. Keep using the medication as directed and tell your doctor if your symptoms do not improve after a week of treatment. Store fluticasone nasal in an upright position at room temperature, away from moisture and heat. Throw the spray bottle away after you have used 120 sprays, even if there is still medicine left in the bottle. What happens if I miss a dose? Use the medicine as soon as you can, but skip the missed dose if it is almost time for your next dose. Do not use two doses at one time. What happens if I overdose? Seek emergency medical attention or call the Poison Help line at . An overdose of fluticasone nasal is not expected to produce life threatening symptoms. long-term use of steroid medicine can lead to glaucoma, cataracts, thinning skin, easy bruising, changes in bodyfat (especially in your face, neck, back, and waist), increased acne or facial hair, menstrual problems, impotence, or loss of interest in sex. What should I avoid while using fluticasone nasal? Avoid getting the spray in your eyes or mouth. If this does happen, rinse with water. Avoid being near people who are sick or have infections. Call your doctor for preventive treatment if you are exposed to chickenpox or measles. These conditions can be serious or even fatal in peoplewho are using fluticasone nasal. What are the possible side effects of fluticasone nasal? Get emergency medical help if you have signs of an allergic reaction: hives, rash; feeling light-headed; difficult breathing; swelling of your face, lips, tongue, or throat. Call your doctor at once if you have: severe or ongoing nosebleeds; noisy breathing, runny nose, or crusting around your nostrils; redness, sores, or white patches in your mouth or throat; fever, chills, body aches; blurred vision, eye pain, or seeing halos around lights; any wound that will not heal; or signs of a hormonal disorder--worsening tiredness or muscle weakness, feeling light-headed, nausea,vomiting. Steroid medicine can affect growth in children. Tell your doctor if your child is not growing at a normal rate while using this medicine. Common side effects may include: minor nosebleed, burning or itching in your nose; sores or white patches inside or around your nose; cough, trouble breathing; headache, back pain; sinus pain, sore throat, fever; or nausea, vomiting. This is not a complete list of side effects and others may occur. Call your doctor for medical advice about side effects. You may report side effects to FDA at 9-465-FFU-1129. What other drugs will affect fluticasone nasal? Tell your doctor about all your other medicines, especially: antifungal medicine; or antiviral medicine to treat hepatis C or HIV/AIDS. This list is not complete. Other drugs may affect fluticasone nasal, including prescription and nzsn-yig-drmasgq medicines, vitamins, and herbal products. Not all possible drug interactions are listed here. Where can I get more information? Your pharmacist can provide more information about fluticasone nasal. Remember, keep this and all other medicines out of the reach of children, never share your medicines with others, and use this medication only for the indication prescribed. Every effort has been made to ensure that the information provided by [employer] is accurate, up-to-date, and complete, but no guarantee is made to that effect. Drug information contained herein may be time sensitive. [employer] information has been compiled for use by healthcare practitioners and consumers in the [place] and therefore [employer] does not warrant that uses outside of the [place] are appropriate, unless specifically indicated otherwise. [employer] drug information does not endorse drugs, diagnose patients or recommend therapy. [facility] drug information isan informational resource designed to assist licensed healthcare practitioners in caring for their p atients and/or to serve consumers viewing this service as a supplement to, and not a substitute for, the expertise, skill, knowledge and judgment of healthcare practitioners. The absence of a warningfor a given drug or drug combination in no way should be construed to indicate that the drug or drug combination is safe, effective or appropriate for any given patient. [facility] does not assume any responsibility for any aspect of healthcare administered with the aid of information [facility] provides. The information contained herein is not intended to cover all possible uses, directions, precautions, warnings, drug interactions, allergic reactions, or adverse effects. If you have questions about the drugs you are taking, check with your doctor, nurse or pharmacist. Copyright 0645-3548 [facility]. Version: 10.. Revision Date: 08/07/2019. Education Materials Common Middle Ear Problems Your middle ear may have been injured or infected recently. Over time, certain growths or bone disease can also harm the middle ear. Left untreated, middle ear problems often lead to lifelong hearingloss. There are two types of hearing loss: conductive and sensorineural. One or both kinds can occur. Injury, infection, certain growths, or bone disease can cause your symptoms. A ruptured eardrum or a long-lasting (chronic) ear infection may be painful and decrease hearing. Symptoms Hearing loss in one or both ears Fluid, often smelly, draining from the ear Pain, pressure, or discomfort in the ear Ringing in the ear Conductive and sensorineural hearing loss Sound waves may be disrupted before they reach the inner ear. If this happens, conductive hearing loss may occur. The ear canal can be blocked by wax, infection, a tumor, or a foreign object. The eardrum can be injured or infected. Abnormal bone growth, infection, or tumors in the middle ear can block sound waves. Sound waves may not be processed correctly in the inner ear. If this happens, sensorineural hearingloss may occur. Permanent hearing loss is most commonly associated with sensorineural problems. The tests and evaluations used to diagnose what type of hearing problem you have will depend on your symptoms. 4626-7934 [employer]. [address] [place] [address], [place] [address]. All rights reserved. This information is not intended as a substitute for professional medical care. Always follow yourhealthcare professional's instructions. Additional Information VACCINATE! IT SAVES LIVES! Members of the community who have not yet received the COVID-19 vaccine and would like to receive it can visit one of [facility] vaccine clinics. There are many vaccine clinic locations within the [facility]. For locations and available times, please visit [email or web address]. It is important to note that some COVID mobile vaccine clinics are held outdoors and may be canceled in rainy orstormy conditions. To learn more about pediatric vaccinations (ages 5-11), we invite you to visit the [facility] webpage. [email or web address] learn more about the COVID-19 vaccine, we invite you to visit the [facility] website for a list of frequently asked questions. [email or web address] [facility] Patient Portal Access Instructions: Stay connected with your healthcare team and access your personal medical information anytime with the [facility] Patient Portal. If you would like a full copy of your medical records please contact the [facility] Medical Records Department Wednesday through Wednesday between 8a.m. and 4:30p.m. Please follow the directions below to access the portal: 1.Access the email account you provided upon registration to the [facility].2.Look for an invitation email from [facility].3.Open the email and access the invitation link: Accept Invitation to [facility]4.Fill in the required tripathi to create your account. Sign into [email or web address].[email or web address] retargeting with your username and password that you created in the above steps to stay up to date. You can then view a summary of results, a summary of your visits, and the ability to download your summaries to your computer or send the information securely to a physician. Remember that your healthcare information is confidential, so carefully consider who you will allow to register on the [facility] Patient Portal for access to your information. You can also access the [facility] Patient Portal on the [employer]. Simply click on Health Records under [employer] and then click on the [employer] logo. HOW TO SAFELY DISPOSE OF PRESCRIPTION MEDICATIONS Please use one of the following methods to safely dispose of your unused medications. 1.Use a drug disposal kit: the drug disposal pouch allows you to safely discard your old and unuseddrugs. Ask your nurse to give you one when you are discharged.2.Visit a local take-back location: Many local pharmacies and police departments have programs that collect old and unwanted prescriptiondrugs. Call your local pharmacy or go to http://[email or web address].su.slinkset/[email or web address] to find one close to you.3.Make use of household items: Use cat litter or old coffee grounds to dispose medications if other options arenot available. Mix your drugs with these household products, seal them in an airtight container andthrow it into the garbage. Call [facility]: [phone] to be sure your drugs can be disposed of in this way. Some medicines may require a different approach.4.Never flush your medications down the toilet. IF YOU HAVE BEEN PRESCRIBED AN OPIOIDS FOR PAIN If you have been prescribed an opioid (such as hydrocodone, oxycodone or morphine), it is critical to understand the possible side effects and risks of opioid pain medications. Even when taken as directed, opioids can have several side effects including: Tolerance, meaning you might need to take more of a medication for the same pain relief. Nausea, vomiting and/or constipation. Sleepiness, dizziness, dry mouth, confusion, depression or itching. Physical dependence, meaning you have withdrawal symptoms when a medication is stopped ? this can develop within a few days. KNOW YOUR RESPONSIBILITIES It is important to know exactly how much and how often to take the opioid pain medications you are prescribed. Never take opioids in higher amounts or more often than prescribed. Do not combine opioids with alcohol or other drugs that cause drowsiness, such as benzodiazepines, also known as benzos,including diazepam and alprazolam, muscle relaxants or sleep aids. Never sell or share prescriptionopioids. This is illegal. Store opioids in a secure place and out of reach of others (including children, family, friends and visitors). The last page(s) of this document has been signed and retained as a CHART COPY Signatures Patient Education Materials Common Middle Ear Problems Medication Leaflets amoxicillin, fluticasone nasal My discharge plan and instructions have been reviewed and explained to me and I,HEMANT GARCIAd my current condition and have read and understand these discharge instructions. I have received a written copy of the plan/instructions. If I have questions, I am aware that I should contact my doctor. 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 It is usually seen in young children. This virus causes small ulcers in the mouth (throat, lips, cheeks, gums, and tongue) and small blisters or red spots may appear on the palms (hands), diaper area, and soles of the feet. Thereis usually a low-grade fever and poor appetite. HFMD is not a serious illness and usually go away in 1 to 2 weeks. The painful sores in the mouth may prevent your child from eating and drinking. It takes 3 to 5 days for the illness to appear in an exposed child. Generally, the HFMD is the mostcontagious during the first week of the illness. Sometimes, people can be contagious for days or weeks after the symptoms have disappeared. HFMD can be transmitted from person to person by: Touching your nose, mouth, eye after touching the stool of an infected person (has the virus) Touching your nose, mouth, eye after touching fluid from the blisters/sores of an infected person Respiratory secretions (sneezing, coughing, blowing your nose) Touching contaminated objects (toys, doorknobs) Oral secretions (kissing) Home care Mouth pain Unless your healthcare provider has prescribed another medicine for mouth pain: Acetaminophen or ibuprofen may be used for pain or discomfort or fever. Please consult your child'shealthcare provider before giving your child acetaminophen or ibuprofen for dosing instructions andwhen to give the medicine (schedule). Do not give ibuprofen to an 6 months of age or younger. If your child has chronic liver or kidney disease or ever had a stomach ulcer or gastrointestinal bleeding, talk with your healthcare provider before using these medicines. Never give aspirin to anyone under 18 years of age who has a fever. It may cause severe disease (Leana Syndrome) or . Talk to your child's healthcare provider before giving him or her over-the counter medicines. Liquid rinses may be used in children over 12 months of age. Ask your child's healthcare provider for instructions. Feeding Follow a soft diet with plenty of fluids to prevent dehydration. If your child doesn't want to eat solid foods, it's OK for a few days, as long as he or she drinks lots of fluid. Cool drinks and frozen treats (sherbet) are soothing and easier to take. Avoid citrus juices (orange juice, lemonade, etc.) and salty or spicy foods. These may cause more pain in the mouth sores. Return to daycare or school Children may usually return to day care or school once the fever is gone and they are eating and drinking well. Contact your healthcare provider and ask when your child is able to return to daycare or school. Follow up Follow up with your child's healthcare provider, or as advised. When to seek medical advice Call your child's healthcare provider right away if any of these occur: Your child complains of pain in the back of the neck Your child has a severe headache or continued vomiting Your child is having trouble breathing Your child is drowsy or has trouble staying awake Your child is having trouble swallowing Mouth ulcers are present after 2 weeks Your child's symptoms are getting worse Your child appears to be dehydrated (dry mouth, no tears, haven' t urinated is 8 or more hours) Your child has a fever (see Fever and children, below) Call 911 Call 911 if any of these occur: Unusual fussiness, drowsiness, or confusion Severe headache or vomiting that continues Trouble breathing Seizures Fever and children Always use a digital thermometer to check your child s temperature. Never use a mercury thermometer. For infants and toddlers, be sure to use a rectal thermometer correctly. A rectal thermometer may accidentally poke a hole in (perforate) the rectum. It may also pass on germs from the stool. Always follow the product maker s directions for proper use. If you don t feel comfortable taking a rectal t emperature, use another method. When you talk to your child s healthcare provider, tell him or her which method you used to take your child s temperature. Here are guidelines for fever temperature. Ear temperatures aren t accurate before 6 months of age.Don t take an oral temperature until your child is at least 4 years old. under 3 months old: Ask your child s healthcare provider how you should take the temperature. Rectal or forehead (temporal artery) temperature of 100.4 F (38 C) or higher, or as directed by theprovider Armpit temperature of 99 F (37.2 C) or higher, or as directed by the provider Child age 3 to 36 months: Rectal, forehead (temporal artery), or ear temperature of 102 F (38.9 C) or higher, or as directed by the provider Armpit temperature of 101 F (38.3 C) or higher, or as directed by the provider Child of any age: Repeated temperature of 104 F (40 C) or higher, or as directed by the provider Fever that lasts more than 24 hours in a child under 2 years old. Or a fever that lasts for 3 days in a child 2 years or older. 8017-5336 [employer]. [address] [place] [address]. All rights reserved. This information is not intended as a substitute for professional medical care. Always follow yourhealthcare professional's instructions. 04/26/2022 10:55:34 Viral Rash, Exanthem (Child) Viral Rash (Child) Your child has been diagnosed with a rash caused by a virus. A rash is an irritation of the skin that may cause redness, pimples, bumps, or cysts. Many different things can cause a rash. In children,a viral infection is one of the most common causes of rashes. Anything from colds to measles can cause a viral rash. Viral rashes are not allergic reactions. They are the result of an infection. Unlike an allergic reaction, viral rashes usually do not cause itching or pain. Viral rashes usually go away after a few days, but may last up to 2 weeks. Antibiotics are not usedto treat viral rashes. Symptoms Viral rashes may be accompanied by any of the following symptoms: Fever Decreased energy Loss of appetite Headache Muscle aches Stomach aches Occasionally, a more serious infection can look like a viral rash in the first few days of the illness. This is why it is important to watch for the warning signs listed below. Home care The following will help you care for your child at home: Fluids. Fever increases water loss from the body. For infants under 1 year old, continue regular feedings (formula or breast). Between feedings give oral rehydration solution (ORS). You can get ORS at most grocery and drug stores without a prescription. For children over 1 year old, give plenty of fluids like water, juice, gelatin water, lemon-skokomish soda, verenice-arlene, lemonade, or popsicles. Feeding. If your child doesn't want to eat solid foods, it's OK for a few days, as long as he or she drinks lots of fluid. Activity. Keep children with fever at home resting or playing quietly. Encourage frequent naps. Your child may return to daycare or school when the fever is gone and he or she is eating well and feeling better. Sleep. Periods of sleeplessness and irritability are common. A congested child will sleep best withthe head and upper body propped up on pillows or with the head of the bed frame raised on a 6-inch block. Fever. Use acetaminophen for fever, fussiness or discomfort. In infants over 6 months of age, you may use ibuprofen instead of acetaminophen. Talk with your child's doctor before giving these medicines if your child has chronic liver or kidney disease. Also talk with your child's doctor if your child has ever had a stomach ulcer or GI bleeding. Aspirin should never be used in anyone under 18 years of age who is ill with a fever. It may cause severe liver damage. Follow-up care Follow up with your child's healthcare provider, or as advised. Call 911 Call 911 if any of these occur: Trouble breathing Confused Very drowsy or trouble awakening Fainting or loss of consciousness Rapid heart rate Seizure Stiff neck When to seek medical advice Call your child's healthcare provider right away if any of these occur: The rash involves the eyes, mouth, or genitals The rash becomes more severe rather than improves over a few days Fever (see Fever and children, below) Rapid breathing. This means more than 40 breaths per minute for children less than 3 months old, ormore than 30 breaths per minute for children over 3 months old. Wheezing or difficulty breathing Earache, sinus pain, stiff or painful neck, headache, repeated diarrhea or vomiting Rash becomes dark purple Signs of dehydration. These include no tears when crying, sunken eyes or dry mouth, no wet diapers for 8 hours in infants, and reduced urine output in older children. Fever and children Always use a digital thermometer to check your child s temperature. Never use a mercury thermometer. For infants and toddlers, be sure to use a rectal thermometer correctly. A rectal thermometer may accidentally poke a hole in (perforate) the rectum. It may also pass on germs from the stool. Always follow the product maker s directions for proper use. If you don t feel comfortable taking a rectal t emperature, use another method. When you talk to your child s healthcare provider, tell him or her which method you used to take your child s temperature. Here are guidelines for fever temperature. Ear temperatures aren t accurate before 6 months of age.Don t take an oral temperature until your child is at least 4 years old. under 3 months old: Ask your child s healthcare provider how you should take the temperature. Rectal or forehead (temporal artery) temperature of 100.4 F (38 C) or higher, or as directed by theprovider Armpit temperature of 99 F (37.2 C) or higher, or as directed by the provider Child age 3 to 36 months: Rectal, forehead (temporal artery), or ear temperature of 102 F (38.9 C) or higher, or as directed by the provider Armpit temperature of 101 F (38.3 C) or higher, or as directed by the provider Child of any age: Repeated temperature of 104 F (40 C) or higher, or as directed by the provider Fever that lasts more than 24 hours in a child under 2 years old. Or a fever that lasts for 3 days in a child 2 years or older. 7635-1479 [employer]. [address] [place] [address], [place] [address]. All rights reserved. This information is not intended as a substitute for professional medical care. Always follow yourhealthcare professional's instructions. Follow Up Care 04/26/2022 10:16:05 With:ALEX ORTEGA Address: [address] [place] [phone]- Business (1) When:2-4 days Comments:Follow-up as neededSchedule appointment as soon as possibleTake 2 citrucel tabs 2x/day if using hydrocodone [facility] 09-18-2022 Emergency department Discharge summary Discharge Instructions Thank you for allowing [facility] to assist you with your healthcare needs. The following is importantdischarge information regarding your hospital visit. Diagnosis from Today's Visit Coxsackie virus exanthem Hand foot and mouth disease Rash hands and feet What to Do Next Instructions from Your Care Team Discharge Return to Work, School, or Sports (Return to Work, School, or Sports) - Ordered -- 04/29/22, May return to: work, 04/26/22 10:57:00 EDT Post Acute Orders No qualifying data available. You Need to Schedule the Following Appointments Follow Up with ALEX ORTEGA When Within 2-4 days Why: Follow-up as needed Schedule appointment as soon as possible Take 2 citrucel tabs 2x/day if using hydrocodone Where: [address] [place] [phone]- [facility] (1) Allergies Reglan Medications Please ask your primary doctor or pharmacist before taking any other medication not listed, including over the counter drugs, herbal medications, vitamins and or supplements as they may interact withyour home medications. What How Much When Why Instructions Last Dose New acetaminophen-hydrocodone (acetaminophen-hydrocodone 325 mg-5 mg oral tablet) 1 tab(s) by mouth Every 6 hours as needed for for pain Coxsackie virus exanthem Hand foot and mouth disease Duration: 3 Days prn with food Printed Prescription New predniSONE (predniSONE 10 mg oral tablet) 3 by mouth Two (2) times a day Coxsackie virus exanthem Hand foot and mouth disease 6 po 1st dose then 3 po q12 Printed Prescription Unchanged amoxicillin-clavulanate (Augmentin) Unchanged lidocaine topical (Lidoderm 5% topical patch) 1 patch(es) Transdermal Once a day Unchanged Misc Medication Unchanged sulfaSALAzine 1,000 Milligram by mouth Two (2) times a day Unchanged SUMAtriptan (Imitrex) Once Please take this list to your next doctor s visit. Bring all medications you take, including over the counter medications, herbals and other supplements with you to your doctor s visit. Patients and families are reminded to discard old lists and to update any records with all medication providers or retail pharmacies. Medication Leaflets prednisone (PRED ni sone) Grtechen What is the most important information I should know about prednisone? You should not use prednisone if you have a fungal infection anywhere in your body. You should not stop using prednisone suddenly. Follow your doctor's instructions about tapering your dose. What is prednisone? Prednisone is a steroid that reduces inflammation in the body, and also suppresses your immune system. Prednisone is used to treat many different conditions such as hormonal disorders, skin diseases, arthritis, lupus, psoriasis, allergic conditions, ulcerative colitis, Crohn's disease, eye diseases, lung diseases, asthma, tuberculosis, blood cell disorders, kidney disorders, leukemia, lymphoma, multi ple sclerosis, organ transplant rejection, swelling from a brain tumor or injury. Prednisone may also be used for purposes not listed in this medication guide. What should I discuss with my healthcare provider before taking prednisone? You should not use prednisone if you are allergic to it, or if you have a fungal infection anywherein your body. Steroid medication can weaken your immune system, making it easier for you to get an infection or worsening an infection you already have. Tell your doctor about any illness or infection you've had within the past several weeks. Tell your doctor if you have ever had: heart problems, high blood pressure, or a heart attack; glaucoma or cataracts; herpes infection of the eyes; past or present tuberculosis; a parasite infection that causes diarrhea (such as threadworms); any illness that causes diarrhea; underactive thyroid; diabetes; a stomach ulcer, diverticulitis; a colostomy or ileostomy; osteoporosis or low bone mineral density (steroid medication can increase your risk of bone loss); low levels of calcium or potassium in your blood; cirrhosis or other liver disease; mental illness or psychosis; or a muscle disorder such as myasthenia gravis. Long-term use of steroids may lead to bone loss (osteoporosis), especially if you smoke or drink alcohol, if you do not exercise, or if you do not get enough vitamin D or calcium in your diet. It is not known whether this medicine will harm an unborn baby. Tell your doctor if you are or plan to become . You should not breastfeed while using prednisone. How should I take prednisone? Follow all directions on your prescription label and read all medication guides or instruction sheets. Your doctor may occasionally change your dose. Use the medicine exactly as directed. Prednisone is taken daily or every other day, depending on the condition being treated. You may need to take the medicine at a certain time of day. Follow your doctor's instructions about when and how often to take this medicine. Take with food if prednisone upsets your stomach. Measure liquid medicine carefully. Use the dosing syringe provided, or use a medicine dose-measuring device (not a kitchen spoon). Swallow the delayed-release tablet whole and do not crush, chew, or break it. Prednisone can weaken (suppress) your immune system, and you may get an infection more easily. Callyour doctor if you have signs of infection (fever, weakness, cold or flu symptoms, skin sores, diarrhea, frequent or recurring illness). If you have major surgery or a severe injury or infection, your prednisone dose needs may change. Make sure any doctor caring for you knows you are using this medicine. If you use this medicine long-term, you may need medical tests and vision exams. In case of emergency, wear or carry medical identification to let others know you use a steroid. You should not stop using prednisone suddenly. Follow your doctor's instructions about tapering your dose. Store at room temperature away from moisture, heat, and light. What happens if I miss a dose? Take the medicine as soon as you can, but skip the missed dose if it is almost time for your next dose. Do not take two doses at one time. What happens if I overdose? Seek emergency medical attention or call the Poison Help line at . High doses or long-term use of prednisone can lead to thinning skin, easy bruising, changes in bodyfat (especially in your face, neck, back, and waist), increased acne or facial hair, menstrual problems, impotence, or loss of interest in sex. What should I avoid while taking prednisone? Do not receive a 'live' vaccine while using prednisone. The vaccine may not work as well and may not fully protect you from disease. Live vaccines include measles, mumps, rubella (MMR), polio, rotavirus, typhoid, yellow fever, varicella (chickenpox), zoster (shingles), and nasal flu (influenza) vaccine. Avoid being near people who are sick or have infections. Call your doctor for preventive treatment if you are exposed to chickenpox or measles. These conditions can be serious or even fatal in peoplewho are using steroid medicine. Avoid drinking alcohol. What are the possible side effects of prednisone? Get emergency medical help if you have signs of an allergic reaction: hives; difficult breathing; swelling of your face, lips, tongue, or throat. Call your doctor at once if you have: muscle pain or weakness; blurred vision, tunnel vision, eye pain, or seeing halos around lights; severe depression, changes in personality, unusual thoughts or behavior; bloody or tarry stools, coughing up blood or vomit that looks like coffee grounds; swelling, rapid weight gain, feeling short of breath; irregular heartbeats; severe headache, pounding in your neck or ears; decreased adrenal gland hormones--muscle weakness, tiredness, diarrhea, nausea, menstrual changes, skin discoloration, craving salty foods, and feeling light- headed; or low potassium level--leg cramps, constipation, irregular heartbeats, fluttering in your chest, increased thirst or urination, numbness or tingling, muscle weakness or limp feeling. Prednisone can affect growth in children. Tell your doctor if your child is not growing at a normalrate while using this medicine. Common side effects may include: weight gain (especially in your face or your upper back and torso); increased appetite; mood changes, trouble sleeping; changes in your menstrual periods; problems with memory or thought; muscle or joint pain; weakness; headache, dizziness, spinning sensation; nausea, bloating, loss of appetite; slow wound healing; or acne, increased sweating, thinning skin, bruising, pinpoint spots under your skin. This is not a complete list of side effects and others may occur. Call your doctor for medical advice about side effects. You may report side effects to FDA at 6-178-ABV-5145. What other drugs will affect prednisone? Sometimes it is not safe to use certain medications at the same time. Some drugs can affect your blood levels of other drugs you take, which may increase side effects or make the medications less effective. Tell your doctor about all your current medicines. Many drugs can affect prednisone, especially: bupropion; cyclosporine; digoxin; ketoconazole; an antibiotic; control pills or hormone replacement therapy; a diuretic or 'water pill'; insulin or oral diabetes medicine; a blood thinner--warfarin, Coumadin, Jantoven; or NSAIDs (nonsteroidal anti-inflammatory drugs)--aspirin, ibuprofen (Advil, Motrin), naproxen (Aleve), celecoxib, diclofenac, indomethacin, meloxicam, and others. This list is not complete and many other drugs may affect prednisone. This includes prescription and vojn-tnh-ecclicu medicines, vitamins, and herbal products. Not all possible drug interactions are listed here. Where can I get more information? Your pharmacist can provide more information about prednisone. Remember, keep this and all other medicines out of the reach of children, never share your medicines with others, and use this medication only for the indication prescribed. Every effort has been made to ensure that the information provided by [employer]. [employer] is accurate, up-to-date, and complete, but no guarantee is made to that effect. Drug information contained herein may be time sensitive. [employer] information has been compiled for use by healthcare practitioners and consumers in the [place] and therefore [employer] does not warrant that uses outside of the [place] are appropriate, unless specifically indicated otherwise. [employer] drug information does not endorse drugs, diagnose patients or recommend therapy. [employer] drug information isan informational resource designed to assist licensed healthcare practitioners in caring for their p atients and/or to serve consumers viewing this service as a supplement to, and not a substitute for, the expertise, skill, knowledge and judgment of healthcare practitioners. The absence of a warningfor a given drug or drug combination in no way should be construed to indicate that the drug or drug combination is safe, effective or appropriate for any given patient. [employer] does not assume any responsibility for any aspect of healthcare administered with the aid of information [employer] provides. The information contained herein is not intended to cover all possible uses, directions, precautions, warnings, drug interactions, allergic reactions, or adverse effects. If you have questions about the drugs you are taking, check with your doctor, nurse or pharmacist. Copyright 3616-8793 [employer]. Version: 10.. Revision Date: 11/03/2018. acetaminophen and hydrocodone (a SEET a MIN oh fen and sarah droe KOE done) Hycet, Lorcet, Reform, Verdrocet, Vicodin, Xodol, Zamicet What is the most important information I should know about acetaminophen and hydrocodone? MISUSE OF OPIOID MEDICINE CAN CAUSE ADDICTION, OVERDOSE, OR . Keep the medication in a place where others cannot get to it. Taking opioid medicine during may cause life-threatening withdrawal symptoms in the . Fatal side effects can occur if you use opioid medicine with alcohol, or with other drugs that cause drowsiness or slow your breathing. Stop taking this medicine and call your doctor right away if you have skin redness or a rash that spreads and causes blistering and peeling. What is acetaminophen and hydrocodone? Acetaminophen and hydrocodone is a combination medicine used to relieve moderate to severe pain. Acetaminophen and hydrocodone contains an opioid medicine, and may be habit-forming. Acetaminophen and hydrocodone may also be used for purposes not listed in this medication guide. What should I discuss with my healthcare provider before taking acetaminophen and hydrocodone? You should not use this medicine if you are allergic to acetaminophen or hydrocodone, or if you have: severe asthma or breathing problems; or a blockage in your stomach or intestines. Tell your doctor if you have ever had: breathing problems, sleep apnea (breathing stops during sleep); liver disease; a drug or alcohol addiction; kidney disease; a head injury or seizures; urination problems; or problems with your thyroid, pancreas, or gallbladder. If you use opioid medicine while you are , your baby could become dependent on the drug. This can cause life-threatening withdrawal symptoms in the baby after it is born. Babies born dependent on opioids may need medical treatment for several weeks. Ask a doctor before using opioid medicine if you are . Tell your doctor if you notice severe drowsiness or slow breathing in the nursing baby. How should I take acetaminophen and hydrocodone? Follow all directions on your prescription label. Never take this medicine in larger amounts, or for longer than prescribed. An overdose can damage your liver or cause . Tell your doctor if you feel an increased urge to use more of this medicine. Never share this medicine with another person, especially someone with a history of drug abuse or addiction. MISUSE CAN CAUSE ADDICTION, OVERDOSE, OR . Keep the medicine in a place where others cannot get to it. Selling or giving away this medicine is against the law. Measure liquid medicine carefully. Use the dosing syringe provided, or use a medicine dose-measuring device (not a kitchen spoon). If you need surgery or medical tests, tell the doctor ahead of time that you are using this medicine. You should not stop using this medicine suddenly. Follow your doctor's instructions about tapering your dose. Store at room temperature away from moisture and heat. Keep track of your medicine. You should be aware if anyone is using it improperly or without a prescription. Do not keep leftover opioid medication. Just one dose can cause in someone using this medicine accidentally or improperly. Ask your pharmacist where to locate a drug take-back disposal program.If there is no take-back program, flush the unused medicine down the toilet. What happens if I miss a dose? Since this medicine is used for pain, you are not likely to miss a dose. Skip any missed dose if itis almost time for your next dose. Do not use two doses at one time. What happens if I overdose? Seek emergency medical attention or call the Poison Help line at . An overdose of this medicine can be fatal, especially in a child or other person using the medicine without a prescription. Overdose symptoms may include nausea, vomiting, sweating, severe drowsiness, pinpoint pupils, slow breathing, or no breathing. Your doctor may recommend you get naloxone (a medicine to reverse an opioid overdose) and keep it with you at all times. A person caring for you can give the naloxone if you stop breathing or don't wake up. Your caregiver must still get emergency medical help and may need to perform CPR (cardiopulmonary resuscitation) on you while waiting for help to arrive. Anyone can buy naloxone from a pharmacy or local health department. Make sure any person caring foryou knows where you keep naloxone and how to use it. What should I avoid while taking acetaminophen and hydrocodone? Avoid driving or operating machinery until you know how this medicine will affect you. Dizziness ordrowsiness can cause falls, accidents, or severe injuries. Do not drink alcohol. Dangerous side effects or could occur. Ask a doctor or pharmacist before using any other medicine that may contain acetaminophen (sometimes abbreviated as APAP). Taking certain medications together can lead to a fatal overdose. What are the possible side effects of acetaminophen and hydrocodone? Get emergency medical help if you have signs of an allergic reaction: hives; difficulty breathing; swelling of your face, lips, tongue, or throat. Opioid medicine can slow or stop your breathing, and may occur. A person caring for you should give naloxone and/or seek emergency medical attention if you have slow breathing with long pauses,blue colored lips, or if you are hard to wake up. In rare cases, acetaminophen may cause a severe skin reaction that can be fatal. This could occur even if you have taken acetaminophen in the past and had no reaction. Stop taking this medicine and call your doctor right away if you have skin redness or a rash that spreads and causes blistering andpeeling. Call your doctor at once if you have: noisy breathing, sighing, shallow breathing, breathing that stops; a light-headed feeling, like you might pass out; liver problems--nausea, upper stomach pain, tiredness, loss of appetite, dark urine, paresh-colored stools, jaundice (yellowing of the skin or eyes); low cortisol levels-- nausea, vomiting, loss of appetite, dizziness, worsening tiredness or weakness; o high levels of serotonin in the body--agitation, hallucinations, fever, sweating, shivering, fast heart rate, muscle stiffness, twitching, loss of coordination, nausea, vomiting, diarrhea. Serious breathing problems may be more likely in older adults and in those who are debilitated or have wasting syndrome or chronic breathing disorders. Common side effects include: dizziness, drowsiness, feeling tired; nausea, vomiting, stomach pain; constipation; or headache. This is not a complete list of side effects and others may occur. Call your doctor for medical advice about side effects. You may report side effects to FDA at 4-297-SUM-9889. What other drugs will affect acetaminophen and hydrocodone? You may have breathing problems or withdrawal symptoms if you start or stop taking certain other medicines. Tell your doctor if you also use an antibiotic, antifungal medication, heart or blood pressure medication, seizure medication, or medicine to treat HIV or hepatitis C. Opioid medication can interact with many other drugs and cause dangerous side effects or . Be sure your doctor knows if you also use: cold or allergy medicines, bronchodilator asthma/COPD medication, or a diuretic ('water pill'); medicines for motion sickness, irritable bowel syndrome, or overactive bladder; other opioids--opioid pain medicine or prescription cough medicine; a sedative like Valium--diazepam, alprazolam, lorazepam, Xanax, Klonopin, Versed, and others; drugs that make you sleepy or slow your breathing--a sleeping pill, muscle relaxer, medicine to treat mood disorders or mental illness; drugs that affect serotonin levels in your body--a stimulant, or medicine for depression, Parkinson's disease, migraine headaches, serious infections, or nausea and vomiting. This list is not complete. Other drugs may affect acetaminophen and hydrocodone, including prescription and gwvu-zcu-lzxrxtz medicines, vitamins, and herbal products. Not all possible interactions are listed here. Where can I get more information? Your doctor or pharmacist can provide more information about acetaminophen and hydrocodone. Remember, keep this and all other medicines out of the reach of children, never share your medicines with others, and use this medication only for the indication prescribed. Every effort has been made to ensure that the information provided by [employer]') is accurate, up-to-date, and complete, but no guarantee is made to that effect. Drug information contained herein may be time sensitive. [employer] information has been compiled for use by healthcare practitioners and consumers in the [place] and therefore [employer] does not warrant that uses outside of the [place] are appropriate, unless specifically indicated otherwise. [employer] drug information does not endorse drugs, diagnose patients or recommend therapy. [employer] drug information isan informational resource designed to assist licensed healthcare practitioners in caring for their p atients and/or to serve consumers viewing this service as a supplement to, and not a substitute for, the expertise, skill, knowledge and judgment of healthcare practitioners. The absence of a warningfor a given drug or drug combination in no way should be construed to indicate that the drug or drug combination is safe, effective or appropriate for any given patient. [employer] does not assume any responsibility for any aspect of healthcare administered with the aid of information [facility] provides. The information contained herein is not intended to cover all possible uses, directions, precautions, warnings, drug interactions, allergic reactions, or adverse effects. If you have questions about the drugs you are taking, check with your doctor, nurse or pharmacist. Copyright 1165-4695 [employer]. Version: 16.03. Revision Date: 09/10/2020. Education Materials Hand, Foot, and Mouth Disease (Child) Hand, foot, and mouth disease (HFMD) is an illness caused by a virus. It is usually seen in young children. This virus causes small ulcers in the mouth (throat, lips, cheeks, gums, and tongue) and small blisters or red spots may appear on the palms (hands), diaper area, and soles of the feet. Thereis usually a low-grade fever and poor appetite. HFMD is not a serious illness and usually go away in 1 to 2 weeks. The painful sores in the mouth may prevent your child from eating and drinking. It takes 3 to 5 days for the illness to appear in an exposed child. Generally, the HFMD is the mostcontagious during the first week of the illness. Sometimes, people can be contagious for days or weeks after the symptoms have disappeared. HFMD can be transmitted from person to person by: Touching your nose, mouth, eye after touching the stool of an infected person (has the virus) Touching your nose, mouth, eye after touching fluid from the blisters/sores of an infected person Respiratory secretions (sneezing, coughing, blowing your nose) Touching contaminated objects (toys, doorknobs) Oral secretions (kissing) Home care Mouth pain Unless your healthcare provider has prescribed another medicine for mouth pain: Acetaminophen or ibuprofen may be used for pain or discomfort or fever. Please consult your child'shealthcare provider before giving your child acetaminophen or ibuprofen for dosing instructions andwhen to give the medicine (schedule). Do not give ibuprofen to an 6 months of age or younger. If your child has chronic liver or kidney disease or ever had a stomach ulcer or gastrointestinal bleeding, talk with your healthcare provider before using these medicines. Never give aspirin to anyone under 18 years of age who has a fever. It may cause severe disease (Leana Syndrome) or . Talk to your child's healthcare provider before giving him or her over-the counter medicines. Liquid rinses may be used in children over 12 months of age. Ask your child's healthcare provider for instructions. Feeding Follow a soft diet with plenty of fluids to prevent dehydration. If your child doesn't want to eat solid foods, it's OK for a few days, as long as he or she drinks lots of fluid. Cool drinks and frozen treats (sherbet) are soothing and easier to take. Avoid citrus juices (orange juice, lemonade, etc.) and salty or spicy foods. These may cause more pain in the mouth sores. Return to daycare or school Children may usually return to day care or school once the fever is gone and they are eating and drinking well. Contact your healthcare provider and ask when your child is able to return to daycare or school. Follow up Follow up with your child's healthcare provider, or as advised. When to seek medical advice Call your child's healthcare provider right away if any of these occur: Your child complains of pain in the back of the neck Your child has a severe headache or continued vomiting Your child is having trouble breathing Your child is drowsy or has trouble staying awake Your child is having trouble swallowing Mouth ulcers are present after 2 weeks Your child's symptoms are getting worse Your child appears to be dehydrated (dry mouth, no tears, haven' t urinated is 8 or more hours) Your child has a fever (see Fever and children, below) Call 911 Call 911 if any of these occur: Unusual fussiness, drowsiness, or confusion Severe headache or vomiting that continues Trouble breathing Seizures Fever and children Always use a digital thermometer to check your child s temperature. Never use a mercury thermometer. For infants and toddlers, be sure to use a rectal thermometer correctly. A rectal thermometer may accidentally poke a hole in (perforate) the rectum. It may also pass on germs from the stool. Always follow the product maker s directions for proper use. If you don t feel comfortable taking a rectal t emperature, use another method. When you talk to your child s healthcare provider, tell him or her which method you used to take your child s temperature. Here are guidelines for fever temperature. Ear temperatures aren t accurate before 6 months of age.Don t take an oral temperature until your child is at least 4 years old. Infant under 3 months old: Ask your child s healthcare provider how you should take the temperature. Rectal or forehead (temporal artery) temperature of 100.4 F (38 C) or higher, or as directed by theprovider Armpit temperature of 99 F (37.2 C) or higher, or as directed by the provider Child age 3 to 36 months: Rectal, forehead (temporal artery), or ear temperature of 102 F (38.9 C) or higher, or as directed by the provider Armpit temperature of 101 F (38.3 C) or higher, or as directed by the provider Child of any age: Repeated temperature of 104 F (40 C) or higher, or as directed by the provider Fever that lasts more than 24 hours in a child under 2 years old. Or a fever that lasts for 3 days in a child 2 years or older. [id number] [employer]. [address] [place] [address]. All rights reserved. This information is not intended as a substitute for professional medical care. Always follow yourhealthcare professional's instructions. Viral Rash (Child) Your child has been diagnosed with a rash caused by a virus. A rash is an irritation of the skin that may cause redness, pimples, bumps, or cysts. Many different things can cause a rash. In children,a viral infection is one of the most common causes of rashes. Anything from colds to measles can cause a viral rash. Viral rashes are not allergic reactions. They are the result of an infection. Unlike an allergic reaction, viral rashes usually do not cause itching or pain. Viral rashes usually go away after a few days, but may last up to 2 weeks. Antibiotics are not usedto treat viral rashes. Symptoms Viral rashes may be accompanied by any of the following symptoms: Fever Decreased energy Loss of appetite Headache Muscle aches Stomach aches Occasionally, a more serious infection can look like a viral rash in the first few days of the illness. This is why it is important to watch for the warning signs listed below. Home care The following will help you care for your child at home: Fluids. Fever increases water loss from the body. For infants under 1 year old, continue regular feedings (formula or breast). Between feedings give oral rehydration solution (ORS). You can get ORS at most grocery and drug stores without a prescription. For children over 1 year old, give plenty of fluids like water, juice, gelatin water, lemon-skokomish soda, verenice-arlene, lemonade, or popsicles. Feeding. If your child doesn't want to eat solid foods, it's OK for a few days, as long as he or she drinks lots of fluid. Activity. Keep children with fever at home resting or playing quietly. Encourage frequent naps. Your child may return to daycare or school when the fever is gone and he or she is eating well and feeling better. Sleep. Periods of sleeplessness and irritability are common. A congested child will sleep best withthe head and upper body propped up on pillows or with the head of the bed frame raised on a 6-inch block. Fever. Use acetaminophen for fever, fussiness or discomfort. In infants over 6 months of age, you may use ibuprofen instead of acetaminophen. Talk with your child's doctor before giving these medicines if your child has chronic liver or kidney disease. Also talk with your child's doctor if your child has ever had a stomach ulcer or GI bleeding. Aspirin should never be used in anyone under 18 years of age who is ill with a fever. It may cause severe liver damage. Follow-up care Follow up with your child's healthcare provider, or as advised. Call 911 Call 911 if any of these occur: Trouble breathing Confused Very drowsy or trouble awakening Fainting or loss of consciousness Rapid heart rate Seizure Stiff neck When to seek medical advice Call your child's healthcare provider right away if any of these occur: The rash involves the eyes, mouth, or genitals The rash becomes more severe rather than improves over a few days Fever (see Fever and children, below) Rapid breathing. This means more than 40 breaths per minute for children less than 3 months old, ormore than 30 breaths per minute for children over 3 months old. Wheezing or difficulty breathing Earache, sinus pain, stiff or painful neck, headache, repeated diarrhea or vomiting Rash becomes dark purple Signs of dehydration. These include no tears when crying, sunken eyes or dry mouth, no wet diapers for 8 hours in infants, and reduced urine output in older children. Fever and children Always use a digital thermometer to check your child s temperature. Never use a mercury thermometer. For infants and toddlers, be sure to use a rectal thermometer correctly. A rectal thermometer may accidentally poke a hole in (perforate) the rectum. It may also pass on germs from the stool. Always follow the product maker s directions for proper use. If you don t feel comfortable taking a rectal t emperature, use another method. When you talk to your child s healthcare provider, tell him or her which method you used to take your child s temperature. Here are guidelines for fever temperature. Ear temperatures aren t accurate before 6 months of age.Don t take an oral temperature until your child is at least 4 years old. under 3 months old: Ask your child s healthcare provider how you should take the temperature. Rectal or forehead (temporal artery) temperature of 100.4 F (38 C) or higher, or as directed by theprovider Armpit temperature of 99 F (37.2 C) or higher, or as directed by the provider Child age 3 to 36 months: Rectal, forehead (temporal artery), or ear temperature of 102 F (38.9 C) or higher, or as directed by the provider Armpit temperature of 101 F (38.3 C) or higher, or as directed by the provider Child of any age: Repeated temperature of 104 F (40 C) or higher, or as directed by the provider Fever that lasts more than 24 hours in a child under 2 years old. Or a fever that lasts for 3 days in a child 2 years or older. [id number] [employer]. [address] [place] [id number]. All rights reserved. This information is not intended as a substitute for professional medical care. Always follow yourhealthcare professional's instructions. Additional Information VACCINATE! IT SAVES LIVES! Members of the community who have not yet received the COVID-19 vaccine and would like to receive it can visit one of [facility] vaccine clinics. There are many vaccine clinic locations within the [facility]. For locations and available times, please visit [email or web address]. It is important to note that some COVID mobile vaccine clinics are held outdoors and may be canceled in rainy orstormy conditions. To learn more about pediatric vaccinations (ages 5-11), we invite you to visit the [facility] webpage. [email or web address] learn more about the COVID-19 vaccine, we invite you to visit the [facility] website for a list of frequently asked questions. [email or web address] [facility] Patient Portal Access Instructions: Stay connected with your healthcare team and access your personal medical information anytime with the [facility] Patient Portal. If you would like a full copy of your medical records please contact the [facility] Medical Records Department Wednesday through Wednesday between 8a.m. and 4:30p.m. Please follow the directions below to access the portal: 1.Access the email account you provided upon registration to the [facility].2.Look for an invitation email from [facility].3.Open the email and access the invitation link: Accept Invitation to [facility]4.Fill in the required tripathi to create your account. Sign into [email or web address] retargeting with your username and password that you created in the above steps to stay up to date. You can then view a summary of results, a summary of your visits, and the ability to download your summaries to your computer or send the information securely to a physician. Remember that your healthcare information is confidential, so carefully consider who you will allow to register on the [facility] Patient Portal for access to your information. You can also access the [facility] Patient Portal on the [employer]. Simply click on Health Records under [facility] and then click on the [facility] logo. HOW TO SAFELY DISPOSE OF PRESCRIPTION MEDICATIONS Please use one of the following methods to safely dispose of your unused medications. 1.Use a drug disposal kit: the drug disposal pouch allows you to safely discard your old and unuseddrugs. Ask your nurse to give you one when you are discharged.2.Visit a local take-back location: Many local pharmacies and police departments have programs that collect old and unwanted prescriptiondrugs. Call your local pharmacy or go to http://bit.slinkset/7M0Yr2r to find one close to you.3.Make use of household items: Use cat litter or old coffee grounds to dispose medications if other options arenot available. Mix your drugs with these household products, seal them in an airtight container andthrow it into the garbage. Call [facility]: [phone] to be sure your drugs can be disposed of in this way. Some medicines may require a different approach.4.Never flush your medications down the toilet. IF YOU HAVE BEEN PRESCRIBED AN OPIOIDS FOR PAIN If you have been prescribed an opioid (such as hydrocodone, oxycodone or morphine), it is critical to understand the possible side effects and risks of opioid pain medications. Even when taken as directed, opioids can have several side effects including: Tolerance, meaning you might need to take more of a medication for the same pain relief. Nausea, vomiting and/or constipation. Sleepiness, dizziness, dry mouth, confusion, depression or itching. Physical dependence, meaning you have withdrawal symptoms when a medication is stopped ? this can develop within a few days. KNOW YOUR RESPONSIBILITIES It is important to know exactly how much and how often to take the opioid pain medications you are prescribed. Never take opioids in higher amounts or more often than prescribed. Do not combine opioids with alcohol or other drugs that cause drowsiness, such as benzodiazepines, also known as benzos,including diazepam and alprazolam, muscle relaxants or sleep aids. Never sell or share prescriptionopioids. This is illegal. Store opioids in a secure place and out of reach of others (including children, family, friends and visitors). The last page(s) of this document has been signed and retained as a CHART COPY Signatures Patient Education Materials Hand Foot Mouth Disease (Child) Viral Rash, Exanthem (Child) Medication Leaflets prednisone, acetaminophen and hydrocodone My discharge plan and instructions have been reviewed and explained to me and IJOSE MALLORIE Munderstand my current condition and have read and understand these discharge instructions. I have received a written copy of the plan/instructions. If I have questions, I am aware that I should contact my doctor. 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 A sprain may take up to 8 weeks to fully heal, depending on how severe it is. Moderate to severe shoulder sprains are treated with a sling or shoulder immobilizer. Minor sprains can be treated without any special support. Home care The following guidelines will help you care for your injury at home: If a sling was given to you, leave it in place for the time advised by your healthcare provider. Ifyou aren t sure how long to wear it, ask for advice. If the sling becomes loose, adjust it so that your forearm is level with the ground. Your shoulder should feel well supported. Put an ice pack on the injured area for 20 minutes every 1 to 2 hours the first day. You can make your own ice pack by putting ice cubes in a plastic bag. A bag of frozen peas or something similar works well too. Wrap the bag in a thin towel. Continue with ice packs 3 to 4 times a day for the next 2 to 3 days. Then use the pack as needed to ease pain and swelling. You may use acetaminophen or ibuprofen to control pain, unless another pain medicine was prescribed. If you have chronic liver or kidney disease, talk with your healthcare provider before using thesemedicines. Also talk with your provider if you ve had a stomach ulcer or gastrointestinal bleeding. Shoulder joints become stiff if left in a sling for too long. You should start range of motion exercises about 7 to 10 days after the injury. Talk with your provider to find out what type of exercises to do and how soon to start. Follow-up care Follow up with your healthcare provider, or as advised. Any X-rays you had today don t show any broken bones, breaks, or fractures. Sometimes fractures dont show up on the first X-ray. Bruises and sprains can sometimes hurt as much as a fracture. These injuries can take time to heal completely. If your symptoms don t improve or they get worse, talk with your provider. You may need a repeat X-ray or other treatments. When to seek medical advice Call your healthcare provider right away if any of these occur: Shoulder pain or swelling in your arm that gets worse Fingers become cold, blue, numb, or tingly Large amount of bruising of the shoulder or upper arm Fever or chills [id number] [employer] [place] [address]. All rights reserved. This information is not intended as a substitute for professional medical care. Always follow yourhealthcare professional's instructions. Follow Up Care 01/21/2022 17:42:14 With:LAWRENCE CHAVARRIA Address: [address] [place] [address] [facility] [place] [phone] (1) When:3-5 days Comments:You may use sling for comfort. Be sure to mobilize the arm periodically throughout the day to avoidthe joints stiffening up. Use Tylenol ibuprofen for pain, follow-up with orthopedics if no improvement or worsening symptoms. [facility] 06-14-2021 NoteHNO ID: [id number] Author: Ochoa Gallagher MD Service: ? Author Type: Physician Type: Progress Notes Filed: 01/20/2021 4:53 PM Note Text: GASTROENTEROLOGY PROGRESS NOTE OUTPATIENT FOLLOW UP HPI: I saw Hemant Garcia today for a follow up regarding celiac disease. Hemant Garcia was last seen here by me on 09/12/2020. This is a telephone/Virtual Visit being conducted as a result of the COVID-19 pandemic. The patient has consented to this virtual interaction. Called and spoke to pt briefly and lost connection. Tried calling x 3 again but no answer. LVM. Needs to be rescheduled. PAST MEDICAL HISTORY Diagnosis Date - Asthma - Inflammatory arthritis - Migraines PAST SURGICAL HISTORY Procedure Laterality Date - PAST SURGICAL HISTORY OF 2019 with removal of cyst from right F tube Social History Tobacco Use - Smoking status: Current Every Day Smoker Packs/day: 0.50 Years: 15.00 Pack years: 7.50 Types: Cigarettes Start date: 01/31/2004 - Smokeless tobacco: Never Used - Tobacco comment: February 06, 2019 Vaping Use - Vaping Use: Never used Substance Use Topics - Alcohol use: Not Currently - Drug use: Never Family history reviewed. No history of IBD, CRC or HPB malignancy. Current Outpatient Medications Medication Sig - ferrous sulfate 325 mg (65 mg iron) tablet Take 1 tablet by mouth twice daily. - ALBUTEROL INHALATION Inhale as instructed. - chlorzoxazone (PARAFON FORTE DSC) 500 mg tablet Take 500 mg by mouth three times daily as needed. - sulfaSALAzine (AZULFIDINE) 500 mg tablet Take 2 tablets by mouth three times daily. (Patient taking differently: Take 1,000 mg by mouth three times daily. 2500 mg/day ) - SUMAtriptan (IMITREX) 50 mg tablet Take 50 mg by mouth as needed. No current facility-administered medications for this visit. ALLERGIES Allergen Reactions - Reglan [Metoclopram* Other: See Comments Anxiety attack REVIEW OF SYSTEMS GASTROINTESTINAL: SEE ABOVE URINARY: No dark urine or hematuria unless documented above CARDIOVASCULAR: No chest pain NEUROLOGICAL: No new focal neuro deficits CONSTITUTIONAL: No weight loss or fever unless documented above EYES: No scleral icterus unless documented above EARS, NOSE AND THROAT: No deformities or abnormalities RESPIRATORY: No dyspnea SKIN: No rashes other than documented above ENDOCRINE: No features of hypothyroidism other than those documented above PSYCHIATRIC: No overt elisha or psychosis HEMATOLOGIC No bruising or hemarthroses MUSCULOSKELETAL: No myalgias or bony deformities IMMUNOLOGIC: No immune deficits unless documented elsewhere PHYSICAL EXAMINATION: [facility] 07/21/2020 GENERAL APPEARANCE: Well appearing, alert, in no acute distress, well-hydrated, well nourished. SKIN: Skin color, texture, turgor normal, no suspicious rashes or lesions. EYES: Anicteric sclera. Pupils are equally round and reactive to light. Extraocular movements are intact. NECK: Supple, no adenopathy; thyroid symmetric, normal size, no bruits. LUNGS: No accessory muscle use, no cyanosis, no asymmetric calf swelling, no bony deformity. HEART: Normal JVP, no significant peripheral edema, no thrill ABDOMEN: Abdomen soft, non-tender, non distended. No masses, ascites or hepatosplenomegaly. EXTREMITIES: No deformities, edema, skin discoloration, clubbing or cyanosis. NEUROLOGIC: Gait normal. Sensation and strength grossly intact. DATA: Diagnostic tests and/or endoscopic procedures reviewed for today's visit: Most recent labs Most recent imaging LABS: Hemoglobin (g/dL) Date Value 07/24/2020 11.6 HGB (g/dL) Date Value 04/01/2020 11.6 Hematocrit (%) Date Value 07/24/2020 36.5 04/01/2020 35.3 WBC Date Value 07/24/2020 10.89 k/uL 04/01/2020 7.60 thou/cmm Lab Results Component Value Date LIPASE 57 07/24/2020 TBILI 0.2 07/24/2020 CREAT 1.05 (H) 07/24/2020 INR 1.0 07/24/2020 ALB 4.1 07/24/2020 CBILI <0.2 07/24/2020 ALKPHOS 103 07/24/2020 AST 15 07/24/2020 ALT 18 07/24/2020 TPROT 6.3 07/24/2020 Plan ASSESSMENT AND PLAN: Thank you for involving me in the care of this patient. Ochoa Gallagher MD Impression: (Some elements copied from my previous notes, which have been updated where appropriate, and all reflect current medical decision making from today)[facility] NoteHNO ID: [id number] Author: Ochoa Gallagher Service: ? Author Type: Physician Type: Progress Notes Filed: 09/12/2020 11:30 AM Note Text: GASTROENTEROLOGY PROGRESS NOTE OUTPATIENT FOLLOW UP HPI: I saw Hemant Garcia today for a follow up regarding recent EGD. Hemant Garcia was last seen here by me on 07/18/2020. This is a telephone/Virtual Visit being conducted as a result of the COVID-19 pandemic. The patient has consented to this virtual interaction. Had EGD 07/2020 Slightly atrophic duodenum with scalloping Normal esophagus and stomach. Biopsies taken to rule out H. Pylori and celiac disease. A) Duodenum, biopsy - Duodenal mucosa with increased intraepithelial lymphocytes and suggestion of mild villous blunting (see comment). ? B) Duodenum, bulb, biopsy - Superficial small bowel mucosa with mild increased intraepithelial lymphocytes and suggestion of mild villous blunting (see comment). ? C) Stomach, biopsy - Gastric mucosa with no significant histopathologic change. at ?3:29 PM Diagnosis Comment In parts A and B, MILANA stained sections demonstrate mild probable villous blunting with increased intraepithelial lymphocytes. The differential diagnosis of this variable villous abnormality includes partially treated/clinically latent celiac sprue, infectious etiologies, drug effect, and a variety of allergic-type/autoimmune phenomena, including inflammatory bowel disease. Clinical, endoscopic, and serologic correlation are recommended. She is having back pain and hip pain. Plans to follow up with rheum. She has started GFD but is not strict with it yet. No abdo pain. Has some mild N but no V. No dysphagia or odynophagia. Weight has been stable. Had some issues with constipation but relieved with OTC remedies. Reports 1 BM/day. No blood or melena. No anorexia. PAST MEDICAL HISTORY Diagnosis Date - Asthma - Inflammatory arthritis - Migraines PAST SURGICAL HISTORY Procedure Laterality Date - PAST SURGICAL HISTORY OF 2019 with removal of cyst from right F tube Social History Tobacco Use - Smoking status: Current Every Day Smoker Packs/day: 0.50 Years: 15.00 Pack years: 7.50 Types: Cigarettes Start date: 01/31/2004 - Smokeless tobacco: Never Used - Tobacco comment: February 06, 2019 Substance Use Topics - Alcohol use: Not Currently - Drug use: Never Family history reviewed. No history of IBD, CRC or HPB malignancy. Current Outpatient Medications Medication Sig - ALBUTEROL INHALATION Inhale as instructed. - chlorzoxazone (PARAFON FORTE DSC) 500 mg tablet Take 500 mg by mouth three times daily as needed. - meloxicam (MOBIC) 15 mg tablet Take 1 tablet by mouth once daily. - sulfaSALAzine (AZULFIDINE) 500 mg tablet Take 2 tablets by mouth three times daily. (Patient taking differently: Take 1,000 mg by mouth three times daily. 2500 mg/day ) - SUMAtriptan (IMITREX) 50 mg tablet Take 50 mg by mouth as needed. No current facility-administered medications for this visit. ALLERGIES Allergen Reactions - Reglan [Metoclopram* Other: See Comments Anxiety attack REVIEW OF SYSTEMS GASTROINTESTINAL: SEE ABOVE URINARY: No dark urine or hematuria unless documented above CARDIOVASCULAR: No chest pain NEUROLOGICAL: No new focal neuro deficits CONSTITUTIONAL: No weight loss or fever unless documented above EYES: No scleral icterus unless documented above EARS, NOSE AND THROAT: No deformities or abnormalities RESPIRATORY: No dyspnea SKIN: No rashes other than documented above ENDOCRINE: No features of hypothyroidism other than those documented above PSYCHIATRIC: No overt elisha or psychosis HEMATOLOGIC No bruising or hemarthroses MUSCULOSKELETAL: No myalgias or bony deformities IMMUNOLOGIC: No immune deficits unless documented elsewhere PHYSICAL EXAMINATION: [facility] 07/21/2020 This is a telephone/Virtual Visit being conducted as a result of the COVID-19 pandemic. The patient has consented to this virtual interaction. DATA: Diagnostic tests and/or endoscopic procedures reviewed for today's visit: Most recent labs Most recent imaging LABS: Hemoglobin (g/dL) Date Value 07/24/2020 11.6 HGB (g/dL) Date Value 04/01/2020 11.6 Hematocrit (%) Date Value 07/24/2020 36.5 04/01/2020 35.3 WBC Date Value 07/24/2020 10.89 k/uL 04/01/2020 7.60 thou/cmm Lab Results Component Value Date LIPASE 57 07/24/2020 TBILI 0.2 07/24/2020 CREAT 1.05 (H) 07/24/2020 INR 1.0 07/24/2020 ALB 4.1 07/24/2020 CBILI <0.2 07/24/2020 ALKPHOS 103 07/24/2020 AST 15 07/24/2020 ALT 18 07/24/2020 TPROT 6.3 07/24/2020 Plan ASSESSMENT AND PLAN: 29F with hx of morbid obesity and undifferentiated spondyloarthropathy, presenting for serologic evidence of celiac disease. Does also report LUQ pain and new onset diarrhea in the last week (more content not included)...[facility]12-16-2020 NoteHNO ID: [id number] Author: Angie RosarioRn) RADHA Mackenzie Service: Nursing Author Type: Registered Nurse Type: Nursing Progress Note Filed: 07/24/2020 3:45 PM Note Text: Dr. Gallagher at bedside discussing case with patient.[facility] 07-18-2020 NoteHNO ID: [id number] Author: Ochoa Gallagher Service: ? Author Type: Physician Type: Progress Notes Filed: 07/18/2020 10:25 AM Note Text: GASTROENTEROLOGY CONSULT HPI: Hemant Garcia is a 29 year old female who presents for celiac disease. 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 She was found to have serologic evidence of celiac disease with elevated TTG at 113. She has been taking meloxicam and SSZ for her joint pain. She reports N and non-blood emesis x 1 week. Also LUQ and back pain x 1 week. She wonders about it being a UTI. She reports mcc food sensitivity for years. If she eats pasta, hong konger food or vincentian food, she vomits. No dysphagia or odynophagia. Does have GERD and takes TUMS. No jaundice or icterus. Only developed diarrhea in the last week. No blood or melena. Previously was having regular BMs. No weight loss. Has small skin rash, about 2-3 cm on forearm No rash on elbows or knees She is waiting to see Derm No prior scopes Current smoker, no alcohol use She works at [employer] No FHx of CRC, celiac disease, IBD History reviewed. No pertinent past medical history. History reviewed. No pertinent surgical history. Current Outpatient Medications Medication Sig - chlorzoxazone (PARAFON FORTE DSC) 500 mg tablet Take 500 mg by mouth three times daily as needed. - meloxicam (MOBIC) 15 mg tablet Take 1 tablet by mouth once daily. - sulfaSALAzine (AZULFIDINE) 500 mg tablet Take 2 tablets by mouth three times daily. - SUMAtriptan (IMITREX) 50 mg tablet Take 50 mg by mouth as needed. No current facility-administered medications for this visit. ALLERGIES Allergen Reactions - Reglan [Metoclopram* Other: See Comments Anxiety attack Family history reviewed. No history of colon cancer or IBD. Social History Tobacco Use - Smoking status: Current Every Day Smoker Packs/day: 0.25 Types: Cigarettes Start date: 01/31/2004 - Smokeless tobacco: Never Used - Tobacco comment: February 06, 2019 Substance Use Topics - Alcohol use: Not Currently - Drug use: Never REVIEW OF SYSTEMS GASTROINTESTINAL: SEE ABOVE URINARY: No dark urine or hematuria unless documented above CARDIOVASCULAR: No chest pain NEUROLOGICAL: No new focal neuro deficits CONSTITUTIONAL: No weight loss or fever unless documented above EYES: No scleral icterus unless documented above EARS, NOSE AND THROAT: No deformities or abnormalities RESPIRATORY: No dyspnea SKIN: No rashes other than documented above ENDOCRINE: No features of hypothyroidism other than those documented above PSYCHIATRIC: No overt elisha or psychosis HEMATOLOGIC No bruising or hemarthroses MUSCULOSKELETAL: No myalgias or bony deformities IMMUNOLOGIC: No immune deficits unless documented elsewhere PHYSICAL EXAMINATION: Ht 5' 8 (1.73m) Wt 322 lb 1.6 oz (146.1kg) BMI 48.99 kg/(m2). GENERAL APPEARANCE: Well appearing, alert, in no acute distress, well-hydrated, well nourished. SKIN: Skin color, texture, turgor normal, no suspicious rashes or lesions. EYES: Anicteric sclera. Pupils are equally round and reactive to light. Extraocular movements are intact. NECK: Supple, no adenopathy; thyroid symmetric, normal size, no bruits. LUNGS: No accessory muscle use, no cyanosis, no asymmetric calf swelling, no bony deformity. HEART: Normal JVP, no significant peripheral edema, no thrill ABDOMEN: Abdomen soft, non-tender, non distended. No masses, ascites or hepatosplenomegaly. EXTREMITIES: No deformities, edema, skin discoloration, clubbing or cyanosis. NEUROLOGIC: Gait normal. Sensation and strength grossly intact. LABS: Lab tests reviewed. HGB (g/dL) Date Value 04/01/2020 11.6 Hematocrit (%) Date Value 04/01/2020 35.3 WBC (thou/cmm) Date Value 04/01/2020 7.60 Platelet Count (thou/cmm) Date Value 04/01/2020 228 Creatinine Date Value Ref Range Status 04/01/2020 0.87 0.58 - 0.96 mg/dL Final AST Date Value Ref Range Status 04/01/2020 25 13 - 35 U/L Final ALT Date Value Ref Range Status 04/01/2020 23 7 - 38 U/L Final Bilirubin, Total (mg/dL) Date Value 04/01/2020 0.3 WBC (thou/cmm) Date Value 04/01/2020 7.60 RBC (mil/cmm) Date Value 04/01/2020 4.45 %DIG,%DBS No results found for: TSH IMAGING: Imaging including X-rays, Ultrasound, CT scans, MRI scans reviewed. none Old records reviewed if available. Plan ASSESSMENT AND PLAN: 29F with hx of morbid obesity and undifferentiated spondyloarthropathy, presenting for serologic evidence of celiac disease. Does also report LUQ pain and new onset diarrhea in the last week but no chronic hx of such. - Celiac disease Will check DGP and nutritional marker Arrange EGD for duodenal biopsy Will also start on gluten free diet after this. Referral to membership administrator made - Undifferentiated spondyloarthropathy Currently on meloxicam (more content not included)...[facility]08-24-2020 NoteHNO ID: [id number] Author: Janet Ramsay Service: ? Author Type: Physician Type: Progress Notes Filed: 04/07/2020 2:07 PM Note Text: This note was created using [employer] Subjective Hemant Garcia is a 29 year old female. Been to er couple of time Pain is not controlled At work is having difficulty on account of pain I am miserable and cannot take the pain sulfasalazine started no side effect Not feeling any better Most of the pain is in the right groin and right Sarcoiliac joint area No neck pain Low back pain and radiates to right knee No upper ext pain Grasp is not weaker knEE PAIN < right hip No left hip pain After work cannot find comfort Ankle and feet pain no change . No Hidradenitis Suppurativa Review of Systems Constitutional: Positive for fatigue. HENT: Negative. Eyes: Negative. Respiratory: Negative. Cardiovascular: Negative. Endocrine: Negative. Genitourinary: Negative. Skin: Negative. Allergic/Immunologic: Negative. Neurological: Negative. Hematological: Negative. Psychiatric/Behavioral: Negative. Objective Blood Pressure 125/70 (BP Site: Right Arm, BP Position: Sitting) Pulse 73 Temperature 36.8 ?C (98.3 ?F) Height 175.3 cm (5' 9) Weight (Abnormal) 145.6 kg (321 lb) Body Mass Index 47.40 kg/m? Physical Exam Vitals signs reviewed. Constitutional: Appearance: Normal appearance. Neck: Musculoskeletal: No neck rigidity or muscular tenderness. Cardiovascular: Heart sounds: No murmur. No friction rub. Pulmonary: Effort: No respiratory distress. Breath sounds: Normal breath sounds. No stridor. No wheezing or rhonchi. Abdominal: General: There is no distension. Palpations: Abdomen is soft. There is no mass. Tenderness: There is no abdominal tenderness. Hernia: No hernia is present. Musculoskeletal: Right shoulder: Normal. Left shoulder: Normal. Right elbow: Normal. Left elbow: Normal. Right wrist: Normal. Left wrist: Normal. Right hip: Normal. Left hip: Normal. Right knee: Normal. Left knee: Normal. Right ankle: Normal. Left ankle: Normal. Cervical back: Normal. Thoracic back: Normal. Lumbar back: Normal. Right hand: Normal. Left hand: Normal. Right lower leg: No edema. Left lower leg: No edema. Right foot: Normal. Left foot: Normal. Comments: Sarcoiliac joint pain Right trochanteric bursa Not clear if plantar fascitis in feet No upper ext pain . Skin: Findings: No rash. Neurological: Mental Status: She is alert. Psychiatric: Mood and Affect: Mood normal. Behavior: Behavior normal. Thought Content: Thought content normal. Judgment: Judgment normal. Assessment and Plan First visit 01/19/2020 ( PCP sent here for joint pains and to see connective tissue disease ) + unclear spleen Undifferentiated spondyloarthritis ? Celiac Disease serology positive IgA, IgG Transglutaminase Ab: 11, IgG negative, IgA levels (mg/dl) are 272 mg.dl mg/dl 04/05/2020 IgM 79 mg.d lIgG 1250 mg.dl ( 2016 onset after delivery of 1st child) TREATMENT prednisone used for flares with relief. ( no hypermobility noted in exam), exam and history more suggestive of Undifferentiated spondyloarthritis sulfasalazine 1.5 gm no better 04/01/2020 change to 3 gm a day. AMANDA 1:80 homogenous 04/2019 ESR 50 mm RF negative. 05/27 Angiotensin converting enzyme levels normal. 30 . 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 Drug and disease monitoring 04/27 CMP normal Alk phos 143 high 12/2019 CK 78 CRP 17.8 mg/l ( < 6) ESR 17 mm normal cmp alk phos normal 04/05/2020 ESR 26 mm CRP 0.9 mg.dl CMP CBC normal Splenomegaly since 2018 ( CT abdomen 2018 18 cm ) ( no symptoms) USG 12/[address] Clark Hematology seen . Hilar lymphadenopathy 04/2019 CT mild enlarged hilar nodes. Also scattered nodular density Pulm Seen [place] pending work up PFT pending 01/19/2020 no biopsy planned per patient, last follow up 07/2019 Sarcoidosis ? No appt with pulm for now, possible sarcoidosis, can explain her medical findings . Leukocytosis 2018 onset. 2019 wbc normal 7900. H/h 12.6/38.4 PLT 308 11/2019 8500 resolved issue 01/19/2020 observe. Chronic neck pain 2020 onset 01/19/2020 observe Chronic low back pain 2016 onset. ( Lumbar radiculopathy right side to knee) ( worse with activity ) 11/2019 LS xray : Small anterior endplate osteophytes arise from the inferior endplate of L1 and superior endplate of L3, similar to the prior study. 04/05/2020 xr Sarcoiliac joint normal TREATMENT Aleve no help 01/19/2020 Muscle relaxer some help intermittent use 04/01/2020 add mobic 15 mg daily. PT done 01/2020 and no better. ( doing PT on her own, doing feet stretching on her own ) Medical marijuana help 01/19/2020 Right shoulder pain 2019 onset ( no left shoulder pain ) ( no (more content not included)...[facility]07-02-2020 NoteHNO ID: [id number] Author: Janet Ramsay Service: ? Author Type: Physician Type: Progress Notes Filed: 02/08/2020 1:10 PM Note Text: This note was created using [employer]. Elvira Garcia is a 29 year old female. I am fine Right knee Right hip pain Low back pain right side Hand stiff loss of grasp Morning stiffness is lasting about one to two hours. HS active now in left axilla before that in the left groin New rash finger and hand Never before About one month PCP seen No med used No fever, chills, shortness of breath, severe muscle aches, nausea, vomit or diarrhea. After work right leg does not want to work Cannot get to pick this up Severe pain on the right side Review of Systems Constitutional: Positive for fatigue. Cardiovascular: Negative. Objective Blood Pressure 103/64 (BP Site: Right Arm, BP Position: Sitting) Pulse 93 Temperature 36.8 ?C (98.2 ?F) Height 175.3 cm (5' 9) Weight (Abnormal) 147 kg (324 lb) Body Mass Index 47.85 kg/m? Physical Exam Vitals signs reviewed. Constitutional: Appearance: Normal appearance. Eyes: General: Right eye: No discharge. Left eye: No discharge. Neck: Musculoskeletal: No neck rigidity or muscular tenderness. Cardiovascular: Rate and Rhythm: Normal rate and regular rhythm. Heart sounds: No murmur. No friction rub. Pulmonary: Effort: No respiratory distress. Breath sounds: No stridor. No wheezing or rhonchi. Abdominal: General: There is no distension. Palpations: There is no mass. Tenderness: There is no abdominal tenderness. Hernia: No hernia is present. Musculoskeletal: Right shoulder: Normal. Left shoulder: Normal. Right elbow: Normal. Left elbow: Normal. Right wrist: Normal. Left wrist: Normal. Right hip: Normal. Left hip: Normal. Right knee: Normal. Left knee: Normal. Right ankle: Normal. Left ankle: Normal. Cervical back: Normal. Thoracic back: Normal. Lumbar back: Normal. Right hand: Normal. Left hand: Normal. Right lower leg: No edema. Left lower leg: No edema. Right foot: Normal. Left foot: Normal. Comments: Hidradenitis Suppurativa Left side scarring noted in axilla Rash vesicular mild on the finger noted Tender only on right knee Right plantar fascia area and right Sarcoiliac joint area Skin: Coloration: Skin is not jaundiced or pale. Findings: No bruising or erythema. Neurological: Mental Status: She is alert. Cranial Nerves: No cranial nerve deficit. Sensory: No sensory deficit. Motor: No weakness. Coordination: Coordination normal. Psychiatric: Mood and Affect: Mood normal. Behavior: Behavior normal. Thought Content: Thought content normal. Judgment: Judgment normal. 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 ( no hypermobility noted in exam), exam and history more suggestive of Undifferentiated spondyloarthritis sulfasalazine 1.5 gm Patient explained about the need for regular blood monitoring with this drug, regular clinic visits. Gastrointestinal intolerance issues discussed, can take with food or after food to lessen the chances of same. Hepatic and hematologic toxicity of the drug explained. Rare cases of pancreatitis and hepatitis reported with the drug. Change in the color of the urine explained to patient. Headaches, dizziness also possible, hemolysis possible. Patient understood and verbalized understanding. AMANDA 1:80 homogenous 04/2019 ESR 50 mm RF negative. 05/27 Angiotensin converting enzyme levels normal. 30 . 01/25 uric acid 4.2 mg.dl not clear if connective tissue disease get labs on her. Drug and disease monitoring 04/27 CMP normal Alk phos 143 high 12/2019 CK 78 CRP 17.8 mg/l ( < 6) ESR 17 mm normal cmp alk phos normal Splenomegaly since 2018 ( CT abdomen 2018 18 cm ) ( no symptoms) USG 12/[address] Clark Hematology seen . Hilar lymphadenopathy 04/2019 CT mild enlarged hilar nodes. Also scattered nodular density Pulm Seen [place] pending work up PFT pending 01/19/2020 no biopsy planned per patient, last follow up 07/2019 6 months follow up planned. Sarcoid can explain most of her finding. Need to get early appt with pulm for now. Leukocytosis 2018 onset. 2019 wbc normal 7900. H/h 12.6/38.4 PLT 308 11/2019 8500 resolved issue 01/19/2020 observe. Chronic neck pain 2020 onset 01/19/2020 observe Chronic low back pain 2016 onset. ( Lumbar radiculopathy right side to knee) ( worse with activity ) 11/2019 LS xray : Small anterior endplate osteophytes arise from the inferior endplate of L1 and superior endplate of L3, similar to the prior study. ( no images for review ) TREATMENT Aleve no help 01/18 (more content not included)...[facility] 01-28-2020 NoteHNO ID: [id number] Author: Janet Ramsay Service: ? Author Type: Physician Type: Progress Notes Filed: 01/28/2020 4:46 PM Note Text: The patient did not show for this appointment. [facility] Ramsay [facility] No data available for this section [facility] Evaluation noteNo assessment information available [facility] Work Phone: Evaluation note* Diagnosis Allergic contact dermatitis due to other agents- Primary Influenza vaccine refused [facility] Diagnosis Other migraine with status migrainosus, intractable- Primary Nausea and vomiting, unspecified vomiting type Elevated blood pressure reading without diagnosis of hypertension [facility] Diagnosis Acute nonintractable headache, unspecified headache type- Primary [facility] Diagnosis Intractable migraine with aura without status migrainosus- Primary Cervico-occipital neuralgia of right side Obstructive sleep apnea Obstructive sleep apnea (adult) (pediatric) [facility] Diagnosis Cervico-occipital neuralgia of right side documented in this encounter [facility]* Diagnosis Obstructive sleep apnea Obstructive sleep apnea (adult) (pediatric) [facility] Diagnosis Well adult exam- Primary Routine general medical examination at a health care facility Encounter to establish care Exercise-induced asthma Exercise induced bronchospasm URI with cough and congestion Morbid obesity with BMI of 45.0-49.9, adult ([facility]) Amenorrhea Absence of menstruation RUQ abdominal pain Abdominal pain, right upper quadrant Nausea Nausea alone Screening for diabetes mellitus Screening for deficiency anemia Screening for other and unspecified deficiency anemia Screening for lipoid disorders Intractable migraine with aura without status migrainosus Inflammatory arthritis Unspecified inflammatory polyarthropathy Celiac disease [facility] Diagnosis Elevated fasting glucose- Primary Impaired fasting glucose [facility] Diagnosis Type 2 diabetes mellitus with morbid obesity (HCC)- Primary [facility] Diagnosis RUQ abdominal pain Abdominal pain, right upper quadrant [facility] Diagnosis Type 2 diabetes mellitus with morbid obesity (HCC)- Primary Encounter for diabetic foot exam ([facility]) Encounter for diabetes education Morbid obesity with BMI of 45.0-49.9, adult (HCC) Elevated liver enzymes Other nonspecific abnormal serum enzyme levels Intractable migraine with aura without status migrainosus [facility] Diagnosis Vaginal bleeding- Primary Other specified noninflammatory disorder of vagina [facility] Diagnosis Morbid obesity with BMI of 45.0-49.9, adult ([facility]) [facility] Diagnosis Type 2 diabetes mellitus with morbid obesity (HCC)- Primary Morbid obesity with BMI of 45.0-49.9, adult (HCC) Vaginal bleeding Other specified noninflammatory disorder of vagina Pap smear of cervix with ASCUS, cannot exclude HGSIL [facility] Diagnosis Morbid obesity with BMI of 45.0-49.9, adult (HCC)- Primary documented in this encounter [facility]* Diagnosis Type 2 diabetes mellitus with morbid obesity (HCC)- Primary Morbid obesity with BMI of 45.0-49.9, adult (HCC) [facility] Diagnosis Type 2 diabetes mellitus with morbid obesity (HCC)- Primary Morbid obesity with BMI of 45.0-49.9, adult (HCC) documented in this encounter [facility]* Diagnosis Type 2 diabetes mellitus with morbid obesity (HCC)- Primary Morbid obesity with BMI of 45.0-49.9, adult (HCC) documented in this encounter [facility]* Diagnosis Morbid obesity, unspecified obesity type (HCC)- Primary Morbid obesity with BMI of 45.0-49.9, adult (HCC) Type 2 diabetes mellitus with morbid obesity (HCC) documented in this encounter [facility]* Diagnosis Morbid obesity, unspecified obesity type (HCC)- Primary Morbid obesity with BMI of 45.0-49.9, adult (HCC) Type 2 diabetes mellitus with morbid obesity (HCC) documented in this encounter [facility]* Diagnosis Morbid obesity, unspecified obesity type (CMS/HCC)- Primary Morbid obesity with BMI of 45.0-49.9, adult (CMS/HCC) Type 2 diabetes mellitus with morbid obesity (HCC) Pre-op testing Unspecified pre-operative examination documented in this encounter [facility]* Diagnosis Morbid obesity, unspecified obesity type (CMS/HCC)- Primary Morbid obesity with BMI of 45.0-49.9, adult (CMS/HCC) Type 2 diabetes mellitus with morbid obesity (HCC) Pre-op testing Unspecified pre-operative examination [facility] Diagnosis Morbid obesity with BMI of 45.0-49.9, adult (CMS/HCC)- Primary Hand, foot and mouth disease Hand, foot, and mouth disease [facility] Diagnosis Morbid obesity, unspecified obesity type (CMS/HCC)- Primary Morbid obesity with BMI of 45.0-49.9, adult (CMS/HCC) Type 2 diabetes mellitus with morbid obesity (HCC) Pre-op testing Unspecified pre-operative examination documented in this encounter [facility] HealthEvaluation note* Diagnosis Type 2 diabetes mellitus with morbid obesity (HCC) Morbid obesity with BMI of 45.0-49.9, adult (CMS/HCC) documented in this encounter [facility] HealthEvaluation note* Diagnosis Abnormal uterine bleeding (AUB)- Primary Family history of malignant neoplasm of ovary documented in this encounter [facility] HealthEvaluation note* Diagnosis Type 2 diabetes mellitus with morbid obesity (HCC) Morbid obesity with BMI of 45.0-49.9, adult ([facility]/HCC) documented in this encounter [facility] HealthInstructions* Attachments The following attachments cannot be sent through Care Everywhere. * Carb Counting for Adults With Diabetes ([place]) * Carbohydrate Counting Diet ([place]) * Diabetes and Diet ([place]) * Diabetic Meal Planning ([place]) * Phentermine, ADULT ([place]) documented in this [facility] HealthInstructions* Attachments The following attachments cannot be sent through Care Everywhere. * Semaglutide, ADULT ([place]) documented in this [facility] HealthInstructions* Attachments The following attachments cannot be sent through Care Everywhere. * Semaglutide, ADULT ([place]) documented in this [facility] HealthProgress note No data available for this section [facility] Reason for visit Narrative* Hospital - Outpatient (Routine) - Closed Specialty Diagnoses / Procedures Referred By Shey morales Referred To Contact Sleep Medicine Diagnoses Obstructive sleep apnea Procedures Polysomnography Iwona Concepcion MD [address] [facility] [address] [place] [address] Phone: tel: fax: [facility] Sleep Lab [address] [place] [address] Phone: tel: Referral ID Status Reason Start Date Expiration Date Visits Re quested Visits Authorized [id number] Closed 09/19/2024 09/14/2025 1 1 [facility] History of Present Illness * Rob Polanco, - 04/02/2019 6:32 PM EDT Feels ok occ ctx's Cx:Unchanged Tracing reviewed Imp:Not in labor,M-S back pain Plan:Patient is stable for D/C Has appt tomorrow Tylenol prn Suggested swimming for back discomfort * Rob Polanco DO - 04/02/2019 4:32 PM EDT 28 YO F EDC 05/03/19 [place] 37weeks presents with C/O right back pain and ctx's.[facility] for the complaints. Currently patient has FM,no LOF. States is rough to pee but has been able to drink 2 bottles of water and had a [employer] cheeseburger prior to coming here. Past Hx reviewed. Previous O/129/59 108 98.3 A+Ox3 NAD Abd:Obese,soft,no peritoneal signs :1cm/long/soft/mid/Vtx Category 1 tracing Imp:IUP 37 weeks with back pain and ctx's Plan:UA Tylenol for pain Oral fluid Recheck in about 2 hours. documented in this encounter* Linda Alonso RN - 04/11/2019 9:25 AM EDT Pt viewed SIDS and Safe Sleep and Preventing Shaken Baby Syndrome educational videos. Verbalizes understanding of video content and denies any questions. * Felicia Ingram MD - 04/11/2019 9:04 AM EDT ROUNDS Post- Day #2 s/p PCD for suspected ov torsion Subjective: Patient doing well this am. No complaints. Pain controlled. Tolerating regular diet. Ambulating andvoiding with no difficulty. No bowel or bladder difficulties. +Flatus Lochia: Normal, no clots Feeding: bottle Infant: male, doing well Objective: Vitals: 04/10/19 0442 04/10/19 0733 04/10/19 2031 04/11/19 0045 BP: 116/63 (!) 149/80 (!) 145/72 Pulse: 74 86 67 Resp: 20 18 Temp: 97.8 F (36.6 C) 98.2 F (36.8 C) 97.8 F (36.6 C) TempSrc: Oral Oral SpO2: Weight: Height: Physical Examination: Appears well RRR, CTAB Incision: Clean, dry, intact Uterus: Firm, NT Calves: NT Lab Results Component Value Date WBC 11.9 (H) 04/09/2019 HGB 10.8 (L) 04/10/2019 HCT 31.3 (L) 04/09/2019 MCV 81.0 04/09/2019 PLT 209 04/09/2019 Assessment: 28 y.o. PPD # 2 s/p PCD Body mass index is 46.96 kg/m . O POS There is no immunization history for the selected administration types on file for this patient. Plan: Continue care Encouraged ambulating DC HOme Felicia Ingram * Felicia Ingram MD - 04/10/2019 9:45 AM EDT ROUNDS Post- Day #1 s/p CD Subjective: Patient doing well this am. No complaints. Pain controlled. Tolerating regular diet. Ambulating andvoiding with no difficulty. No bowel or bladder difficulties. noFlatus Lochia: Normal, no clots Feeding: bottle Infant: male, doing well Objective: Vitals: 04/09/19 1954 04/10/19 0009 04/10/19 0442 04/10/19 0733 BP: 135/61 (!) 139/58 116/63 Pulse: 87 79 74 Resp: 20 20 20 Temp: 97.7 F (36.5 C) 97.8 F (36.6 C) 98.2 F (36.8 C) TempSrc: Oral Oral Oral SpO2: Weight: Height: Physical Examination: Appears well RRR, CTAB Incision: Clean, dry, intact Uterus: Firm, NT Calves: NT Lab Results Component Value Date WBC 11.9 (H) 04/09/2019 HGB 10.8 (L) 04/10/2019 HCT 31.3 (L) 04/09/2019 MCV 81.0 04/09/2019 PLT 209 04/09/2019 Assessment: 28 y.o. PPD # 1 s/p CD Body mass index is 46.96 kg/m . O POS There is no immunization history for the selected administration types on file for this patient. Plan: Continue care Encouraged ambulating Felicia Ingram * Jone Chavarria DTR - 04/10/2019 7:51 AM EDT Nutrition rescreen complete. Pt assigned a level one for nutrition care. * My Patel DO - 04/09/2019 11:51 AM EDT Patient consented for , it project coordinator made aware as has been receiving IV pain medication. Emergent nonscheduled taking place and this case to follow. R/B/A of and oophorectomy dw pt who elects to proceed. All questions answered and consents signed. * My Patel DO - 04/09/2019 9:49 AM EDT PAtient requesting to go outside and smoke due to stress. Dw pt this is not recommended, also offered nicotine patch which patient declines, she reprots this is due to anxiousness. Risks of maternal injury, fetus not being monitoroed and subsequent risk to fetus dw mother who acknowledges. She wishes to smoke against medical advice outside. AMA form signed with patient and Nurse Nir Guzman. * My Patel DO - 04/09/2019 9:38 AM EDT Maternal Medicine Service Resident Progress Note 04/09/2019 9:40 AM 04/08/2019 Hospital Day: 2 Hemant Garcia, 28 y.o. 38w0d Patient has been seen and examined. Pt complains of continued significant right sided abd pain and right flank pain. She also has had Nausea and vomiting overnight. She has been receiving IV pain medication which isn't controlling her pain and she rates her pain as constant 10/10. She reports that she hasno fevers or chills, an she has no bowel changes. She denies vag bleed, LOF, DFM. She johan blood in her urine. She does report had a kidney stone once previously. Vitals: 04/08/19 1933 04/08/19 1938 04/09/19 0212 04/09/19 0651 BP: 132/65 127/76 Pulse: 94 93 77 84 Resp: Temp: 97.5 F (36.4 C) TempSrc: Oral Weight: Height: FHT: cat 1 with accels Contractions: irritability only Physical Exam: Gen: NAD HEENT: Normocephalic, Atraumatic, EOMI, MMM Resp: non labored breathing Card: RRR S1S2 Abd: + TTP in RLQ and Right lower back, neg guarding, neg rebound Ext: No LE edema, no calf tenderness or swelling Medications: Current Facility-Administered Medications Medication Dose Route Frequency Provider Last Rate Last Dose ondansetron (ZOFRAN) injection 4 mg 4 mg Intravenous Q6H PRN Matthew Méndez MD 4 mg at 04/09/19 0902 lactated ringers infusion Intravenous Continuous Matthew Méndez MD 500 mL/hr at 04/08/19 1925 amoxicillin-clavulanate (AUGMENTIN) 875-125 MG per tablet 1 tablet 1 tablet Oral 2 times per day Matthew Méndez MD 1 tablet at 04/09/19 0737 lactated ringers infusion Intravenous Continuous Matthew Méndez MD 125 mL/hr at 04/08/19 2125 morphine injection 4 mg 4 mg Intravenous Q4H PRN Matthew Méndez MD 4 mg at 04/09/19 0738 Assessment/Plan: Hemant Garcia is a 28 y.o. female 38w0d Testing: Concern for ovarian torsion based off improving CBC, UA studies and recent neg urine culture with hx of 6 cm adnexal mass and increasing pain. Dw pt recommendation for delivery and possible ovarian cystectomy, possible right oophorectomy, pt would like to discuss with mother when she arrives in 20 minutes. Fetus reassuring. No problem-specific Assessment & Plan notes found for this encounter. Further plan pending d/w attending. My Patel DO 04/09/2019, 9:40 AM * Matthew Méndez MD - 04/09/2019 12:57 AM EDT Pt appears in less pain Still asking for more pain medicine Asking to eat HUNGRY ASKING TO GO OUTSIDE AND SMOKE US 6 cm right adnexal cyst with blood flow,, no renal stone seen no hydronephrosis, No hydroureter Afebrile vss Continue observation CBC in AM Discuss with Dr Patel documented in this encounter* Sofi Woods MD - 03/28/2019 6:12 PM EDT Department of Obstetrics and Gynecology Labor and Delivery Triage Note CHIEF COMPLAINT: Back pain. Contractions. HISTORY OF PRESENT ILLNESS: The patient is a 28 y.o. @ 36w2d gestation that presents with back and contractions this afternoon. No bleeding No LOF Estimated Due Date: Estimated Date of Delivery: 04/23/19 COMPLICATIONS: N/v. Ovarian cyst. CARE: Patient Active Problem List Diagnosis Date Noted Bacterial vaginosis Vulvar abscess 02/17/2019 Threatened premature labor in third trimester RLQ abdominal pain Abnormal genetic test during 11/07/2018 Overview Note: 11/07/18: Uni formative DNA pattern. Referral to [facility] Anxiety 11/02/2018 Non-intractable cyclical vomiting with nausea 10/22/2018 Acute cystitis without hematuria 10/22/2018 Cystic fibrosis carrier, antepartum 10/20/2018 Overview Note: 10/20/18: Advise partner should be tested Pap smear of cervix with ASCUS, cannot exclude HGSIL 10/11/2018 Overview Note: 10/11/18: patient needs colp 10/26/18: colp neg, repeat PP History of pre-eclampsia in prior , currently in first trimester 10/05/2018 Obesity in 10/05/2018 Overview Note: Obesity BMI > 40: The following protocols represent a collaboration with physician 1. Obtain 1-hour GCT early 2. Serial growth ultrasounds starting at 32 weeks 3. Weekly NST/AZEEM starting at 32 weeks; if no co morbidities weekly NST/AZEEM starting at 36 weeks 4. Delivery at 40 weeks if cervix is ripe Adnexal mass 10/05/2018 Overview Note: 11/16/18 - decreased in size, saw plant breeder onc - no surgical intervention 10/05/18: complex right adnexal cyst containing low level internal echoes 4.1 x 3.1 x 7.9 cm on US on 09/29/18. Recheck US next visit Family history of cardiac arrhythmia 10/05/2018 Overview Note: 10/05/18: Son with arrhythmia at that resolved spontaneously without surgery or cardiology intervention per pateint Smoker 06/15/2018 Family history of diabetes mellitus in father 06/15/2018 Family history of ovarian cancer 06/15/2018 History of pneumonia 06/15/2018 History of migraine History of renal stone PAST MEDICAL HISTORY: Past Medical History: Diagnosis Date Anxiety Chronic kidney disease hx kidney stones Depression Family history of diabetes mellitus in father 06/15/2018 Family history of ovarian cancer 06/15/2018 History of migraine History of renal stone Smoker 06/15/2018 PAST SURGICAL HISTORY: No past surgical history on file. SOCIAL HISTORY: reports that she has been smoking cigarettes. She has a 3.50 pack-year smoking history. She has never used smokeless tobacco. She reports that she has current or past drug history. Drug: Marijuana. She reports that she does not drink alcohol. MEDICATIONS: Prior to Admission medications Medication Sig Start Date End Date Taking? Authorizing Provider Vit w/Uf-Jbdkbladn-RP (PNV PO) Take by mouth Yes Historical Provider, Mom to be Belts MISC by Does not apply route 02/28/19 Tyson Weeks, diphenhydrAMINE HCl, TOPICAL, (BENADRYL ITCH STOPPING) 2 % GEL Apply to affected area twice a day 02/15/19 Choco Huber MD kxxhdnyfxe-ptiwhmsiugoky-rutokdmi (FIORICET, ESGIC) 50-325-40 MG per tablet Take 1 tablet by mouth every 4 hours as needed for Headaches or Migraine 01/10/19 Sofi Woods MD ondansetron (ZOFRAN) 4 MG tablet Take 1 tablet by mouth daily as needed for Nausea or Vomiting 12/21/18 Choco Huber MD REVIEW OF SYSTEMS: Pertinent items are noted in HPI. PHYSICAL EXAM: Vital Signs: Last menstrual period 07/17/2018, not currently . NAD SVE: 2-3/70/-2 Membranes: intact FHTs: Cat I [place]: rare ASSESSMENT: 28 y.o. 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 Advance Directives and Living Will Power of Loan Consultant Latest Code Status on File Code Status Date Activated Date Inactivated Comments Full Code 04/02/2019 4:32 PM Latest Code Status on File Code Status Date Activated Date Inactivated Comments Full Code 04/09/2019 3:29 PM Full Code 04/09/2019 11:30 AM 04/09/2019 3:29 PM Full Code 04/02/2019 4:32 PM 04/02/2019 8:56 PM Documents on File Type Date Recorded Patient Machinist Mate Expl anation Advance Directives and Living Will Power of Loan Consultant Latest Code Status on File Code Status Date Activated Date Inactivated Comments Full Code 04/09/2019 3:29 PM 04/11/2019 12:39 PM Full Code 04/09/2019 11:30 AM 04/09/2019 3:29 PM Full Code 04/02/2019 4:32 PM 04/02/2019 8:56 PM Latest Code Status on File Code Status Date Activated Date Inactivated Comments Full Code 04/09/2019 3:29 PM 04/11/2019 12:39 PM Hospital Course * Felicia Ingram MD - 04/11/2019 9:06 AM EDT Physician Discharge Summary Patient ID: Hemant Garcia [id number] 28 y.o. 1990 Admit date: 04/08/2019 Discharge date: 04/11/19 Admitting Physician: Felicia Ingram Discharge Diagnoses: Back pain affecting in third trimester [O99.89, M54.9] HRP (high risk ) [O09.90] Discharged Condition: good Procedures Performed: CD Hospital Course: Pt was admitted to labor and delivery. Underwent CD. course uneventful. Discharge Exam: Appears well, AVSS, abd NT/ND, bleeding minimal Disposition:good Patient Instructions: Activity: ambulate in house, no lifting or strenuous exercise for 6 weeks, no sex for 6-8 weeks andno driving while on analgesics Diet: regular Discharge Medication: Hemant Garcia Home Medication Instructions [place]:[id number] Printed on:04/11/19 0906 Medication Information docusate sodium (COLACE, DULCOLAX) 100 MG CAPS Take 100 mg by mouth 2 times daily as needed for Constipation ferrous sulfate 325 (65 Fe) MG tablet Take 1 tablet by mouth 2 times daily (with meals) ibuprofen (ADVIL;MOTRIN) 600 MG tablet Take 1 tablet by mouth every 6 hours oxyCODONE (ROXICODONE) 5 MG immediate release tablet Take 1 tablet by mouth every 4 hours as needed for Pain for up to 14 days. Vit-Fe Fumarate-FA ( VITAMIN) 27-1 MG TABS tablet Take 1 tablet by mouth daily Follow-up with [facility] in 2-3 wks. Signed: Felicia Ingram 04/11/2019 9:06 AM documented in this encounter Discharge Instructions * Instructions* Linda Alonso RN - 04/11/2019 After Your Delivery (the Period): Care Instructions Your Care Instructions Congratulations on the of your baby. Like , the period can be a time of excitement, shaq, and exhaustion. You may look at your wondrous little baby and feel happy. You may also be overwhelmed by your new sleep hours and new responsibilities. At first, babies often sleep during the days and are awake at night. They do not have a pattern or routine. They may make sudden gasps, jerk themselves awake, or look like they have crossed eyes. These are all normal, and they may even make you smile. In these first weeks after delivery, try to take good care of yourself. It may take 4 to 6 weeks tofeel like yourself again, and possibly longer if you had a . You will likely feel very tired for several weeks. Your days will be full of ups and downs, but lots of shaq as well. Follow-up care is a welsh part of your treatment and safety. Be sure to make and go to all appointments, and call your doctor if you are having problems. It's also a good idea to know your test resultsand keep a list of the medicines you take. How can you care for yourself at home? Take care of your body after delivery Use pads instead of tampons for the bloody flow that may last as long as 2 weeks. Ease cramps with ibuprofen (Advil, Motrin). Ease soreness of hemorrhoids and the area between your vagina and rectum with ice compresses or witch jayson pads. Ease constipation by drinking lots of fluid and eating high-fiber foods. Ask your doctor about [id number]-[id number] stool softeners. Cleanse yourself with a gentle squeeze of warm water from a bottle instead of wiping with toilet paper. Take a sitz bath in warm water several times a day. Wear a good nursing bra. Ease sore and swollen breasts with warm, wet washcloths. If you are not , use ice rather than heat for breast soreness. Your period may not start for several months if you are . You may bleed more, and longer at first, than you did before you got . Wait until you are healed (about 4 to 6 weeks) before you have sexual intercourse. Your doctor willtell you when it is okay to have sex. Try not to travel with your baby for 5 or 6 weeks. If you take a long car trip, make frequent stopsto walk around and stretch. Avoid exhaustion Rest every day. Try to nap when your baby naps. Ask another adult to be with you for a few days after delivery. Plan for early childhood associate if you have other children. Stay flexible so you can eat at odd hours and sleep when you need to. Both you and your baby are making new schedules. Plan small trips to get out of the house. Change can make you feel less tired. Ask for help with housework, cooking, and shopping. Remind yourself that your job is to care for your baby. Know about help for depression Baby blues are common for the first 1 to 2 weeks after . You may cry or feel sad or irritable for no reason. Rest whenever you can. Being tired makes it harder to handle your emotions. Go for walks with your baby. Talk to your partner, friends, and family about your feelings. If your symptoms last for more than a few weeks, or if you feel very depressed, ask your doctor forhelp. depression can be treated. Support groups and counseling can help. Sometimes medicine can also help. Stay healthy Eat healthy foods so you have more energy and lose extra baby pounds. If you breastfeed, avoid drugs. If you quit smoking during , try to stay smoke-free. If you choose to have a drink now and then, have only one drink, and limit the number of occasions that you have a drink. Wait to breastfeed at least 2 hours after you have a drink to reduce the amount of a lcohol the baby may get in the milk. Start daily exercise after 4 to 6 weeks, but rest when you feel tired. Learn exercises to tone your belly. Do Kegel exercises to regain strength in your pelvic muscles. You can do these exercises while you stand or sit. ? Squeeze the same muscles you would use to stop your urine. Your belly and thighs should not move. ? Hold the squeeze for 3 seconds, and then relax for 3 seconds. ? Start with 3 seconds. Then add 1 second each week until you are able to squeeze for 10 seconds. ? Repeat the exercise 10 to 15 times for each session. Do three or more sessions each day. Find a class for new mothers and new babies that has an exercise time. If you had a , give yourself a bit more time before you exercise, and be careful. When should you call for help? [id number] anytime you think you may need emergency care. For example, call if: You have thoughts of harming yourself, your baby, or another person. You passed out (lost consciousness). You have chest pain, are short of breath, or cough up blood. You have a seizure. Call your doctor now or seek immediate medical care if: You have severe vaginal bleeding. This means you are passing blood clots and soaking through a pad each hour for 2 or more hours. You are dizzy or lightheaded, or you feel like you may faint. You have a fever. You have new or more belly pain. You have signs of a blood clot in your leg (called a deep vein thrombosis), such as: ? Pain in the calf, back of the knee, thigh, or groin. ? Redness and swelling in your leg or groin. You have signs of preeclampsia, such as: ? Sudden swelling of your face, hands, or feet. ? New vision problems (such as dimness, blurring, or seeing spots). ? A severe headache. Watch closely for changes in your health, and be sure to contact your doctor if: Your vaginal bleeding seems to be getting heavier. You have new or worse vaginal discharge. You feel sad, anxious, or hopeless for more than a few days. You do not get better as expected. Where can you learn more? Go to [email or web address] and sign in to your [employer] account. Enter A461 in the Search Health Information box to learn more about After Your Delivery (the Period): Care Instructions. If you do not have an account, please click on the Sign Up Now link. Current as of: April 13, 2018 Content Version: [id number] [employer]. Care instructions adapted under license by [employer]. If youhave questions about a medical condition or this instruction, always ask your healthcare professional. [employer] disclaims any warranty or liability for your use of this information. documented in this encounter* Attachments The following attachments cannot be sent through Care Everywhere. * Dental Surgery: Generic: Post-op ([place]) documented in this encounter* Attachments The following attachments cannot be sent through Care Everywhere. * Headache ([place]) documented in this encounter* Instructions* Cheko Avina, - 04/20/2019 . Return if any problems or concerns please return if any shortness of breath fevers chills. Abdominal pain. Please stop smoking. Need a repeat CT of the chest to make sure your lymph nodes have gone down and not enlarged. This should be done in 3 months. Return if any problems or concerns documented in this encounter* Attachments The following attachments cannot be sent through Care Everywhere. * Low Back Contusion ([place]) documented in this encounter Assessments Diagnosis delivery delivered- Primary delivery, without mention of indication, delivered, with or without mention of antepartum condition Back pain affecting in third trimester HRP (high risk ) Unspecified high-risk Diagnosis Mild persistent asthma, unspecified whether complicated Diagnosis Oral pain- Primary Other and unspecified diseases of the oral soft tissues Diagnosis Intractable headache, unspecified chronicity pattern, unspecified headache type Diagnosis Intractable headache, unspecified chronicity pattern, unspecified headache type Headache disorder Headache Anxiety state Anxiety state, unspecified Shortness of breath Diagnosis Pneumonia due to organism- Primary Pneumonia due to other specified organism Tobacco abuse Tobacco use disorder Diagnosis Lumbar contusion, initial encounter Reason for Referral Status Reason Specialty Diagnoses / Procedures Re ferred By Contact Referred To Contact Open Diagnoses Mild persistent asthma, unspecified whether complicated Procedures Full PFT Study With Bronchodilator Ashish Perez MD [address] [place] [address] [facility] [address] [place] [address] Status Reason Specialty Diagnoses / Procedures Referre d By Contact Referred To Contact Closed Radiology Diagnoses Intractable headache, unspecified chronicity pattern, unspecified headache type Procedures MRI BRAIN W WO CONTRAST Alex Ortega, DO [address] [place] [address] Summary Purpose Family History No Family History Records FoundNo Family History Records FoundNo Family History Records FoundNo Family History Records FoundNo Family History Records Found No data available for this section No data available for this section No Family History Records Found No data available for this section No data available for this section No Family History Records FoundNo Family History Records Found Chief Complaint and Reason for Visit Chief Complaint HEART PALPITATIONS Additional Source Comments Reason for Visit (unrecogniz ed section and content) Reason Comments Lower Back Pain Reason Comments Lower Back Pain itching all over Reason Comments Dental Pain R. lower Reason Comments Migraine Chest Pain Reason Comments Shortness of Breath Cough Reason Comments Fall patient states she f ell down 4 steeps yesterday Back Pain right lower back stefania n shooting down into right buttock and down right leg Reason Onset Date Comments Rash 04/27/2024 Reason Comments Rash [place], and has a rash and itching on her legs, and a few on her arm. States that her feet are blistering. Reason Onset Date Comments Migraine 09/13/2024 Reason Comments Migraine X11 days Blurred Vision Vomiting Reason Comments Headache Reason Comments New Patient Headache Specialty Diagnoses / Procedures Referred By Contac t Referred To Contact Neurology Diagnoses Acute nonintractable headache, unspecified headache type Procedures [place] OFFICE/OUTPATIENT NEW HIGH MDM 60 MINUTES Cricket Foreman, DO [address] [place] [address] Phone: tel: fax: [facility] [address] [place] [address] Phone: tel: fax: Referral ID Status Reason Start Date Expiration Date Visits Requested Visits Authorized [id number] Pending Review Specialty Services Required 09/14/2024 09/14/2025 1 1 Reason Onset Date Comments Results 10/11/2024 Reason Comments New Patient New to provider- pt is changing providers to us Annual Exam Patient states that she has no smell or taste for about 10 days. States that she is SOB with body aches States that she has some abdominal pain after eating. Would like to talk about weight loss. Blood Work Health Maintenance Hiv/hep c screening- Mmr vaccine-Varicella vaccine-Hep b vaccine-Pcv 20 rlknmsr-Grm-Dgxun vaccine- Reason Comments Follow-up Diabetes Health Maintenance Dm eye- not done Dm dental- not done Blood Work Reason Comments Vaginal Bleeding Reason Onset Date Comments Vaginal Bleeding 02/01/2025 Reason Onset Date Comments Med Refill 02/12/2025 Reason Comments Diabetes Weight Check Waist - 56.5in Health Maintenance Pap- agreeDental - r efusedEye - refusedCOVID - refusedHep C - refusedHIV - refusedPNA - refusedHep B - refused Reason Comments Follow-up Weight Management Reason Comments Weight Check Adipex Waist- 54.25 in Reason Comments Weight Check Adipex Waist- 54.25 in Reason Onset Date Comments Prior Authorization 04/17/2025 PA was paul dacosta, patient notified and wants to try Trulicity if we can get it covered through insurance if not then she wants to try Adipex route again. Patient did state her insurance would be changing soon and will no longer be on Medicaid. PA denial will be scanned into patients chart with denial reasons provided. Denial put on providers desk for review. Reason Comments Weight Management NEW Specialty Diagnoses / Procedures Referred By Contac t Referred To Contact Bariatrics Diagnoses Morbid obesity with BMI of 45.0-49.9, adult (HCC) Procedures [place] OFFICE/OUTPATIENT NEW HIGH MDM 60 MINUTES [facility], [employer] [address] [place] [address] [place] [address] Phone: tel: fax: [facility] - [place] [address] [place] [address] Phone: tel: fax: Referral ID Status Reason Start Date Expiration Date Visits Requested Visits Authorized [id number] Pending Review Specialty Services Required 04/04/2025 04/04/2026 1 1 Reason Onset Date Comments Other 04/30/2025 Financial File 2 025 Surgery Scheduling 04/30/2025 Initial Sched uling Orders Pended Reason Onset Date Comments Other 05/08/2025 Concerns / verif dwayne pictures received Reason Onset Date Comments Other 04/30/2025 Financial File 2 025 Surgery Scheduling 04/30/2025 Initial Sched uling Orders Pended Withdrawal 04/30/2025 Opted out of [employer] program Reason Comments Weight Check Med check/ waist Rash Hand foot and mouth, her son was dx. Was seen in ED on Wednesday Reason Onset Date Comments Med Refill 05/13/2025 Reason Comments New Patient Referral from [facility] for abnormal bleedingPt had been seen in the [place] [facility] for heavy bleeding Reason Onset Date Comments Med Refill 06/07/2025 Reason Onset Date Comments Rash 05/07/2025 INFORMATION SOURCE (unrecogn ized section and content) DATE CREATED AUTHOR 12/26/2019 [facility] [employer] DATE CREATED AUTHOR AUTHOR'S ORGANIZ ATION 02/27/2020 [facility] [employer] DATE CREATED AUTHOR AUTHOR'S ORGANIZ ATION 01/21/2021 [facility] DATE CREATED AUTHOR AUTHOR'S ORGANIZ ATION 01/21/2021 [facility] DATE CREATED AUTHOR AUTHOR'S ORGANIZ ATION 11/21/2022 [facility] DATE CREATED AUTHOR AUTHOR'S ORGANIZ ATION 06/13/2023 [facility] ([place]) DATE CREATED AUTHOR AUTHOR'S ORGANIZ ATION 05/12/2025 [facility] DATE CREATED AUTHOR AUTHOR'S ORGANIZ ATION 06/09/2025 [facility] Care Team (unrecognized sect ion and content) Team Status: Active Member Role Status Dates NEGRO GARBER MD Emergency Provider Active St art: November 20, 2022 ALEX ORTEGA Primary Care Provider Active St art: November 20, 2022 RAKAN GARCIA next of kin Active HEMANT GARCIA Guarantor Active Chip Frier Relationship Specialty Start Date End Date Andrea Duff DO [address] [place] [phone] PCP - General Family Medicine 11/25/22 Chip Frier Relationship Specialty Start Date End Date Andrea Duff DO [address] [place] [address] [place] [phone] PCP - General Family Medicine 11/25/22 Chip Frier Relationship Specialty Start Date End Date Andrea Duff, DO [address] [place] [address] [place] [phone] PCP - General Family Medicine 11/25/22 Chip Frier Relationship Specialty Start Date End Date Andrea Duff DO [address] [place] [phone] PCP - General Family Medicine 11/25/22 Chip Frier Relationship Specialty Start Date End Date Andrea Duff DO [address] [place] [phone] PCP - General Family Medicine 11/25/22 Chip Frier Relationship Specialty Start Date End Date Andrea Duff DO [address] [place] [address] PCP - General Family Medicine 11/25/22 Chip Frier Relationship Specialty Start Date End Date Andrea Duff, DO [address] [place] [phone] PCP - General Family Medicine 11/25/22 Chip Frier Relationship Specialty Start Date End Date Andrea Duff DO [address] [place] [phone] PCP - General Family Medicine 11/25/22 Chip Frier Relationship Specialty Start Date End Date nAdrea Duff, DO [address] [place] [phone] PCP - General Family Medicine 11/25/22 Chip Frier Relationship Specialty Start Date End Date Andrea Duff [address] [place] [phone] PCP - General Family Medicine 11/25/22 Chip Frier Relationship Specialty Start Date End Date Andrea Duff [address] [place] [phone] PCP - General Family Medicine 11/25/22 Chip Frier Relationship Specialty Start Date End Date Andrea Duff, DO [address] [place] [place] [phone] PCP - General Family Medicine 11/25/22 Chip Frier Relationship Specialty Start Date End Date Jacky Solares MD [address] [place] [address], [facility] [place], [place] [phone] PCP - General Family Medicine 12/05/24 Chip Frier Relationship Specialty Start Date End Date Jacky Solares MD [address] [facility] [place] [address] PCP - General Family Medicine 12/05/24 Chip Frier Relationship Specialty Start Date End Date [facility] [place] [address] PCP - General Nurse Practitioner Family 12/08/24 Chip Frier Relationship Specialty Start Date End Date Jacky Solares MD [address] [facility] [place] [address] PCP - General Family Medicine 12/28/24 Chip Frier Relationship Specialty Start Date End Date Jacky Solares MD [address] [facility] [place] [address] PCP - General Family Medicine 12/28/24 Chip Frier Relationship Specialty Start Date End Date Jacky Solares [place] [address] PCP - General Family Medicine 12/28/24 Chip Frier Relationship Specialty Start Date End Date Jacky Solares MD [address] [facility] [address] PCP - General Family Medicine 12/28/24 Chip Frier Relationship Specialty Start Date End Date Jacky Solares [place] [address] PCP - General Family Medicine 12/28/24 Chip Frier Relationship Specialty Start Date End Date Jacky Solares MD [address] [place] [place] [address] PCP - General Family Medicine 12/28/24 Chip Frier Relationship Specialty Start Date End Date Jacky Solares MD [address] [place] [place] [address] PCP - General Family Medicine 12/28/24 Chip Frier Relationship Specialty Start Date End Date Jacky Solares MD [address] [place] [place] [address] PCP - General Family Medicine 12/28/24 Chip Frier Relationship Specialty Start Date End Date Jacky Solares MD [address] [facility] [place] [address] PCP - General Family Medicine 12/28/24 Chip Frier Relationship Specialty Start Date End Date Jacky Solares MD [address] [place] [place] [address] PCP - General Family Medicine 12/28/24 Chip Frier Relationship Specialty Start Date End Date Jacky Solares MD [address] [facility] [place] [address] PCP - General Family Medicine 12/28/24 Amber García DO [address] [place] [address] [address] [place] [address] Surgeon General Surgery 04/26/25 Chip Frier Relationship Specialty Start Date End Date Jacky Solares MD [address] [facility] [place] [address] PCP - General Family Medicine 12/28/24 Amber García DO [address] [place] [address] [address] [place] [address] Surgeon General Surgery 04/26/25 Chip Frier Relationship Specialty Start Date End Date Jacky Solares MD [place] [address] PCP - General Family Medicine 12/28/24 Amber García DO [address] [place] [address] [address] [place] [address] Surgeon General Surgery 04/26/25 Chip Frier Relationship Specialty Start Date End Date Jacky Solares MD [place] [address] PCP - General Family Medicine 12/28/24 Amber Gacría DO [address] [place] [address] [address] [place] [address] Surgeon General Surgery 04/26/25 Chip Frier Relationship Specialty Start Date End Date Jacky Solares MD [place] [address] PCP - General Family Medicine 12/28/24 Amber García DO [address] [place] [address] [address] [place] [address] Surgeon General Surgery 04/26/25 Chip Frier Relationship Specialty Start Date End Date Jacky Solares MD [place] [address] PCP - General Family Medicine 12/28/24 Amber García DO [address] [place] [address] [address] [place] [address] Surgeon General Surgery 04/26/25 Chip Frier Relationship Specialty Start Date End Date Jacky Solares MD [place] [address] PCP - General Family Medicine 12/28/24 Amber García DO [address] [place] [address] [address] [place] [address] Surgeon General Surgery 04/26/25 Chip Frier Relationship Specialty Start Date End Date Jacky Solares MD [place] [address] PCP - General Family Medicine 12/28/24 Amber García DO [address] [place] [address] [address] [place] [address] Surgeon General Surgery 04/26/25 Chip Frier Relationship Specialty Start Date End Date Jacky Solares MD [facility] [place] [address] PCP - General Family Medicine 12/28/24 Amber García DO [address] [place] [address] [address] [place] [address] Surgeon General Surgery 04/26/25 Chip Frier Relationship Specialty Start Date End Date Jacky Solares MD [facility] [place] [address] PCP - General Family Medicine 12/28/24 MarisolAmber DO [address] [place] [address] [address] [place] [address] Surgeon General Surgery 04/26/25 Care Team (unrecognized sect ion and content) Care Team Personnel Name: ALEX ORTEGA MD Med Service: Pediatric Allergy Member Role: Primary Care Physician Address: Address: [address] [place] [address] Care Team Related Persons Name: RADHA FREIRE Name: AMELIA HILLMAN Address: [facility] Address: Home [address] Care Team Personnel Name: ALEX ORTEGA MD Member Role: Primary Care Physician Address: Address: [address] [place] [address] Name: MATTHEW LAROSE MD Position: ED Physician Member Role: ED Physician Address: Address: [place] [id number] Name: RADHA Sinclair Position: AO RN Member Role: ED RN Care Team Related Persons Name: RADHA FREIRE Name: AMELIA HILLMAN Address: [facility] Address: Home [address] [place] [address] Goals (unrecognized section and content) Goals may be documented in a n alternate section Scheduled Active and Recently Administ ered Medications (unrecognized section and content) Medication Order 09/12/2024 09/13/2024 09/14/2024 diphenhydrAMINE (BENADryl) injection 12.5 mg (COMPLETED) 12.5 mg, IntraVENous, Once, On Meliza 09/14/24 at 1600, For 1 dose 1617 (Given - Provid er: Cira Heath RN) ketorolac (Toradol) injection 15 mg 15 mg, IntraVENous, Once, On [place] 09/14/24 at 1700, For 1 dose 1700 (Canceled Entry - Provider: Automatic Discharge Provider - Comment: Automatically canceled at discontinue of medication order) magnesium sulfate IVPB premix 2,000 mg (COMPLETED) 2,000 mg, IntraVENous, at 100 mL/hr, Administer over 30 Minutes, Once, On [place] 09/14/24 at 1600, For 1 dose, Recommended infusion rate not to exceed 1,000 mg (milligrams) per hour. 1618 (New Bag - Prov ider: Cira Heath RN)165 (Stopped - Provider: Cira Heath RN) prochlorperazine (Compazine) injection 10 mg (COMPLETED) 10 mg, IntraVENous, Once, On Meliza 09/14/24 at 1600, For 1 dose, Give if unable to tolerate po. 1617 (Given - Provid er: Cira Heath RN) sodium chloride 0.9 % bolus 1,000 mL (COMPLETED) 1,000 mL, IntraVENous, at 1,000 mL/hr, Administer over 1 Hours, Once, On Meliza 09/14/24 at 1600, For 1 dose 161 (New Bag - Prov ider: Cira Heath RN)165 (Stopped - Provider: Cira Heath RN) Scheduled Medication Order 01/30/2025 01/31/2025 02/01/2025 ketorolac (Toradol) injection 30 mg (COMPLETED) 30 mg, IntraVENous, Once, On [place] 02/01/25 at 1835, For 1 dose 184 (Given - Provid er: Herminia Nascimento RN) sodium chloride 0.9 % bolus 1,000 mL (COMPLETED) 1,000 mL, IntraVENous, at 1,000 mL/hr, Administer over 1 Hours, Once, On [place] 02/01/25 at 1730, For 1 dose 173 ([place] Bag - Prov ider: Herminia Nascimento RN)184 (Stopped - Provider: Herminia Nascimento RN) FOR RECORDS PERTAINING TO PATIENTS WHO ARE OR HAVE BEEN ENROLLED IN A CHEMICAL DEPENDENCY/SUBSTANCEABUSE PROGRAM, SOME INFORMATION MAY BE OMITTED. This clinical summary was aggregated from multiple sources. Caution should be exercised in using it in the provision of clinical care. This summary normalizes information from multiple sources, and as a consequence, information in this document may materially change the coding, format and clinical context of patient data. In addition, data may be omitted in some cases. CLINICAL DECISIONS SHOULD BE BASED ON THE PRIMARY CLINICAL RECORDS. [facility]. provides no warranty or guarantee of the accuracy or completeness of information in this document.
[2025-07-10 20:00] VITALS: PULSE 70; RESP 16; O2SAT 98
[2025-07-10] MEDS: Potassium Chloride Oral Tablet 20 MEQ 40 MEQ PO (20:04)
[2025-07-10 20:22] VITALS: BP 138/80; PULSE 70; RESP 16; TEMP 36.3; O2SAT 98
== END 2025-07-10 20:51 | disposition home or self-care (01) ==
PROVIDERS: Emergency Provider Emergency Medicine; PCP Registered Nurse; Visit Provider Emergency Medicine
DX: G43.909 Migraine, unspecified, not intractable, without status migrainosus (principal); R53.1 Weakness; E87.6 Hypokalemia; E66.9 Obesity, unspecified; Z79.85 Long-term (current) use of injectable non-insulin antidiabetic drugs; F17.210 Nicotine dependence, cigarettes, uncomplicated
CPT/HCPCS: 70450; 80048; 82962; 85025; 96361; 96372; 96374; 96375; 99283; A4216